=== PATIENT | male | born 1965 | race African-American/Black ===

== ENCOUNTER → 2017-08-03 | Outpatient (CLI) | payer OTHER ==
[~2017-08-03] MED LIST: ALBUAER2 INH; AMLO-114 PO; ASCO1CAP3 PO; ASPI81TA28 PO; CALC-354 PO; CALC625T PO; CICL160A PO; DOCU-94 PO; DOCU250C11 PO; FERR325T5 PO; HYDR25TA4 PO; MAGNSOL11 PO; METO50TA16 PO; PANT1TAB3 PO; PERP1TAB PO; PRAV20TA PO; PRAZ2CAP2 PO; SENN-61 PO; VENL75TA4 PO; [UNRECOGNIZED DRUG - CODE] IM
[2017-08-03 12:53] LABS: BASO % 0.4 %; BASO ABS # 0.02 K/uL (0-0.2); EOS % 3.3 %; HEMATOCRIT 40.2 % (42-52); IG% 0.6 %; LYMPH % 35.2 %; LYMPH ABS # 1.84 K/uL (1.2-3.4); MEAN CELL VOLUME 83.9 fL (80-100); MEAN CORPUSCULAR HEMOGLOBIN 27.8 pg (25-34); MEAN PLATELET VOLUME 8.4 fL (7.4-10.4); MONO % 8.2 %; NEUT % 52.3 %; PLATELET COUNT 318 K/uL (130-400); RED BLOOD COUNT 4.79 M/uL (4.7-6.1); WHITE BLOOD COUNT 5.22 K/uL (4.8-10.8)
[2017-08-03 12:55] LABS: COMPLETE YES; MEAN CORPUSCULAR HGB CONC 33.1 g/dl (32-36)
[2017-08-03 13:10] LABS: ALB/GLOB RATIO 1.4 (0.9-2); ALKALINE PHOSPHATASE 81 U/L (45-117); ALT/SGPT 48 U/L (12-78); AST/SGOT 23 U/L (15-37); BLOOD UREA NITROGEN 18 mg/dl (7-18); CALCIUM 9.6 mg/dl (8.5-10.1); CARBON DIOXIDE 31 mmol/L (21-32); CHLORIDE 104 mmol/L (98-107); CREATININE 1.28 mg/dl (0.60-1.40); GLUCOSE 107 mg/dl (70-99); POTASSIUM 3.9 mmol/L (3.5-5.1); SODIUM 140 mmol/L (136-145)
--- NOTE | 2017-08-12 10:09 | CODING QUERY NO DIAGNOSIS ---
TREATMENT RENDERED WITHOUT A DIAGNOSIS : 1965 To promote full compliance with coding requirements relating to patient care, physician participation is requested in all cases of field aide uncertainty. Please assist us with providing a diagnosis/symptom for the test(s) below: A diagnosis/symptom was not documented on your Order. A valid diagnosis/symptom is required to bill all insurances. Please remember that we are unable to code a diagnosis of rule out, probable, possible, questionable, or suspected. Tests that require a diagnosis: DOS: 08/03/17 * COMPREHENSIVE METABO DIAGNOSIS: * CBC WITH AUTO DIFFER DIAGNOSIS: Provider Signature: Date: Thank you Cheryle English [facility] Information Management Once completed, please kindly fax back to [phone] For questions please call [phone]
== END | disposition home or self-care (01) ==
LOC: C.LABSPEC 11:58
PROVIDERS: ATTEND Physician Assistant Medical
DX: R10.9 Unspecified abdominal pain (principal)

== ENCOUNTER → 2017-08-04 | Outpatient (CLI) | payer OTHER ==
[2017-08-04 16:22] LABS: HEMATOCRIT 37.8 % (42-52); MEAN CELL VOLUME 83.8 fL (80-100); MEAN CORPUSCULAR HEMOGLOBIN 27.7 pg (25-34); MEAN PLATELET VOLUME 8.3 fL (7.4-10.4); PLATELET COUNT 291 K/uL (130-400); RED BLOOD COUNT 4.51 M/uL (4.7-6.1); WHITE BLOOD COUNT 4.46 K/uL (4.8-10.8)
[2017-08-04 16:52] LABS: MEAN CORPUSCULAR HGB CONC 33.1 g/dl (32-36)
== END | disposition home or self-care (01) ==
LOC: C.LABSPEC 16:13
PROVIDERS: ATTEND Family Medicine
DX: Z01.89 Encounter for other specified special examinations (principal)

== ENCOUNTER → 2017-08-05 | Outpatient (CLI) | payer OTHER ==
[2017-08-05 14:21] LABS: BASO % 0.4 %; BASO ABS # 0.02 K/uL (0-0.2); COMPLETE YES; EOS % 4.5 %; HEMATOCRIT 39.7 % (42-52); IG% 0.2 %; LYMPH % 38.5 %; LYMPH ABS # 1.73 K/uL (1.2-3.4); MEAN CELL VOLUME 83.8 fL (80-100); MEAN CORPUSCULAR HEMOGLOBIN 27.4 pg (25-34); MEAN CORPUSCULAR HGB CONC 32.7 g/dl (32-36); MEAN PLATELET VOLUME 8.6 fL (7.4-10.4); MONO % 9.4 %; PLATELET COUNT 312 K/uL (130-400); RED BLOOD COUNT 4.74 M/uL (4.7-6.1); WHITE BLOOD COUNT 4.49 K/uL (4.8-10.8)
--- NOTE | 2017-08-11 10:05 | CODING QUERY NO DIAGNOSIS ---
TREATMENT RENDERED WITHOUT A DIAGNOSIS : 1965 To promote full compliance with coding requirements relating to patient care, physician participation is requested in all cases of dynamo tender uncertainty. Please assist us with providing a diagnosis/symptom for the test(s) below: A diagnosis/symptom was not documented on your Order. A valid diagnosis/symptom is required to bill all insurances. Please remember that we are unable to code a diagnosis of rule out, probable, possible, questionable, or suspected. Tests that require a diagnosis: DOS: 08/05/17 * CBC WITH AUTO DIFFER DIAGNOSIS: Provider Signature: Date: Thank you Cheryle English [facility] Information [facility] Once completed, please kindly fax back to [phone] For questions please call [phone]
== END | disposition home or self-care (01) ==
LOC: C.LABSPEC 14:13
PROVIDERS: ATTEND Family Medicine
DX: R10.9 Unspecified abdominal pain (principal)

== ENCOUNTER → 2017-12-06 | Outpatient (CLI) | payer OTHER ==
[2017-12-06 12:58] LABS: INFLUENZA B ANTIGEN Neg for Influ B (NEG)
== END | disposition home or self-care (01) ==
LOC: C.LABSPEC 12:04
PROVIDERS: ATTEND Family Medicine
DX: J10.1 Influenza due to other identified influenza virus with other respiratory manifestations (principal)

== ENCOUNTER 2020-09-23 10:09 | Observation (INO) ==
[2020-09-23] MEDS ORDERED: ONDANSETRON INJ 2 MG/ML 2 ML VIAL IV STA (10:43)
[2020-09-23] MEDS ORDERED: SODIUM CHLORIDE 0.9% 500 ML IV SCH (10:45)
--- NOTE | 2020-09-23 10:50 | Emergency Department Note ---
History of Present Illness General Chief Complaint: Chest Pain Time Seen by Provider: 09/23/20 10:29 Source: patient Mode of arrival: ambulatory Limitations: no limitations History of Present Illness Provider Complaint: chest pain Maximum Pain Intensity: 9 This is a 54-year-old male who presents to the ED with a chief complaint of chest pain and right lower quadrant abdominal pain. The patient has a history of cardiac stents x2 in 2008. The patient states that he has been having chest pain for about a week or so. He had an outpatient nuclear stress test on Wednesday, the of this month. The [facility] received a phone call today stating that that test was abnormal. The nuclear stress test does show abnormal myocardial perfusion in the anterior and inferior lateral wall suggestive of ischemia. He was having some chest pain this morning. He states his pain is intermittent in nature since he had the stress test. Pain radiates in the left side of his neck and left shoulder and arm. He has some associated nausea. He states that he has been vomiting. He also reports right lower quadrant abdominal pain. Patient did receive 4 baby aspirin in route to the ER by EMS. He was recently diagnosed with Covid on the . Home Medications Medication Instructions Recorded Confirmed Type allopurinol 100 mg PO DAILY 09/23/20 09/23/20 History amlodipine 5 mg PO DAILY 09/23/20 09/23/20 History aspirin 81 mg PO DAILY 09/23/20 09/23/20 History calcium carbonate-vitamin D3 2 tab PO BID 09/23/20 09/23/20 History [Calcium + D] cholecalciferol (vitamin D3) 25 mcg PO DAILY 09/23/20 09/23/20 History [Vitamin D3] finasteride 5 mg PO DAILY 09/23/20 09/23/20 History glipizide 5 mg PO DAILY 09/23/20 09/23/20 History hydrochlorothiazide 25 mg PO DAILY 09/23/20 09/23/20 History hydroxyzine pamoate [Vistaril] 25 mg PO BID PRN 09/23/20 09/23/20 History insulin regular human [Novolin R 0 unit SUBCUT UD 09/23/20 09/23/20 History Regular U-100 Insuln] metoprolol tartrate 100 mg PO BID 09/23/20 09/23/20 History pantoprazole 20 mg PO DAILY 09/23/20 09/23/20 History paroxetine HCl 20 mg PO DAILY 09/23/20 09/23/20 History prazosin 2 mg PO HS 09/23/20 09/23/20 History rosuvastatin 20 mg PO QPM 09/23/20 09/23/20 History sennosides-docusate sodium [Senna 1 tab-cap PO BID PRN 09/23/20 09/23/20 History Plus] valsartan 80 mg PO DAILY 09/23/20 09/23/20 History zinc sulfate 220 mg PO BID 09/23/20 09/23/20 History Allergies Allergy/AdvReac Type Severity Reaction Status Date / Time lisinopril Allergy Severe ANAPHYLAXIS Verified 09/23/20 10:47 ibuprofen Allergy Intermediate HIVES Verified 09/23/20 10:47 morphine Allergy Intermediate HIVES Verified 09/23/20 10:47 capsaicin Allergy Unknown . Verified 09/23/20 10:47 phenytoin Allergy Unknown unk Verified 09/23/20 10:47 Past Med/Surg History Social History Smoking Status: Never smoker Preferred Language: Arabic Feels Safe at Home: Yes Review of Systems A total of 10 systems reviewed and were otherwise negative Physical Exam Vital Signs Vital Signs - 24 hr 09/23/20 10:18 09/23/20 10:51 09/23/20 11:03 Temperature 37.4 C Temperature Source Oral Pulse Rate 59 L 55 L Pulse Rate [Apical] Pulse Rate from SpO2 Sensor 55 L Pulse Rhythm Regular Pulse Strength Normal Respiratory Rate 18 16 Respiratory Effort / Characteristics Non-Labored Spontaneous Respiratory Depth Normal Respiratory Pattern Regular Blood Pressure 130/79 126/81 Blood Pressure [Left Arm] Blood Pressure Mean 96 87 Blood Pressure Mean [Left Arm] Blood Pressure Position Sitting Pulse Oximetry 98 97 96 Oxygen Delivery Method Room Air Room Air Sepsis Recent Fever Within 48 Hours No Sepsis New/Unexplained Change in Mental Status No Sepsis Action Taken by Nursing No Action Required 09/23/20 11:07 09/23/20 11:30 09/23/20 12:00 Temperature Temperature Source Pulse Rate 59 L 55 L Pulse Rate [Apical] 55 L Pulse Rate from SpO2 Sensor 57 L 55 L Pulse Rhythm Pulse Strength Respiratory Rate 18 15 21 Respiratory Effort / Characteristics Respiratory Depth Respiratory Pattern Blood Pressure 121/77 118/73 Blood Pressure [Left Arm] 126/81 Blood Pressure Mean 82 78 Blood Pressure Mean [Left Arm] 96 Blood Pressure Position Pulse Oximetry 96 96 96 Oxygen Delivery Method Room Air Sepsis Recent Fever Within 48 Hours Sepsis New/Unexplained Change in Mental Status Sepsis Action Taken by Nursing 09/23/20 12:30 09/23/20 13:00 09/23/20 13:30 Temperature Temperature Source Pulse Rate 62 64 59 L Pulse Rate [Apical] Pulse Rate from SpO2 Sensor 60 64 59 L Pulse Rhythm Pulse Strength Respiratory Rate 20 15 12 Respiratory Effort / Characteristics Respiratory Depth Respiratory Pattern Blood Pressure 118/76 118/74 118/78 Blood Pressure [Left Arm] Blood Pressure Mean 91 91 85 Blood Pressure Mean [Left Arm] Blood Pressure Position Pulse Oximetry 97 94 96 Oxygen Delivery Method Room Air Room Air Room Air Sepsis Recent Fever Within 48 Hours Sepsis New/Unexplained Change in Mental Status Sepsis Action Taken by Nursing CONSTITUTIONAL/VITAL SIGNS: Reviewed / noted above. GENERAL: Non-toxic in appearance. INTEGUMENTARY: Warm, dry, and [place]. HEAD: Normocephalic. EYES: without scleral icterus or trauma. ENT/OROPHARYNX: clear and moist. LYMPHADENOPATHY/NECK: Is supple without lymphadenopathy or meningismus. RESPIRATORY: Lungs clear and equal. CARDIOVASCULAR: Regular rate and rhythm. GI/ABDOMEN: Soft and tender in the right lower quadrant. No organomegaly or pulsatile mass. No rebound or guarding. Normal bowel sounds. EXTREMITIES: Warm and well perfused. BACK: No CVA tenderness. NEUROLOGICAL: Intact without focal deficits. PSYCHIATRIC: normal affect. MUSCULOSKELETAL: Normally developed with good muscle tone. TRIAGE NURSING DOCUMENTATION REVIEWED. Course Administered Medications Discontinued Medications Sodium Chloride (Nss) 500 mls @ 999 mls/hr IV .Q31M [facility] Stop: 09/23/20 11:15 Last Infusion: 09/23/20 12:13 Dose: 0 mls/hr Documented by: [id number] Admin: 09/23/20 11:05 Dose: 999 mls/hr Documented by: [id number] Ioversol (Ioversol 100ml) 94 ml IV ONCE ONE Stop: 09/23/20 12:48 Last Admin: 09/23/20 12:48 Dose: 94 ml Documented by: [id number] Ondansetron HCl (Ondansetron Inj 2 Mg/Ml 2 Ml Vial) 4 mg IV NOW STA Stop: 09/23/20 10:44 Last Admin: 09/23/20 11:05 Dose: 4 mg Documented by: [id number] Medical Decision Making Differential Diagnosis The differential that was considered includes acute myocardial infarction, acute coronary syndrome, myocarditis, pericarditis, pericardial effusions /tamponade, esophageal perforation, thoracic aortic dissection, pulmonary embolism, pneumonia, pneumothorax, pancreatitis, shingles, acute cholecystitis, perforated abdominal viscus. Differential considered: pancreatitis, hepatitis, acute cholecystitis, AAA, UTI, pyelonephritis, kidney stones, appendicitis, diverticulitis, shingles, bowel obstruction, mesenteric ischemia, intussusception,hernia, testicular torsion, ovarian torsion, ruptured ovarian cyst,ectopic , . Medical Records Attestation: I reviewed the patient's medical records. Home Medications Current Medication List: was personally reviewed by me Laboratory Data Attestation: I reviewed the patient's lab results. Result diagrams: 09/23/20 10:25 09/23/20 10:25 Labs: Lab Results 09/23/20 09/23/20 Range/Units 10:25 10:25 WBC 4.95 (4.8-10.8) K/uL RBC 4.69 L (4.7-6.1) M/uL Hgb 12.7 L (14.0-18.0) g/dL Hct 38.4 L (42-52) % MCV 81.9 (80-100) fL MCH 27.1 (25-34) pg MCHC 33.1 (32-36) g/dL RDW Std Deviation 43.6 (36.4-46.3) fL RDW Coeff of Eliana 14.8 H (11.5-14.5) % Plt Count 231 (130-400) K/uL MPV 8.5 (7.4-10.4) fL Immature Gran % (Auto) 0.2 % Neut % (Auto) 45.5 % Lymph % (Auto) 41.6 % [place] % (Auto) 8.7 % Eos % (Auto) 3.4 % Baso % (Auto) 0.6 % Neut # (Auto) 2.25 (1.4-6.5) K/uL Lymph # (Auto) 2.06 (1.2-3.4) K/uL [place] # (Auto) 0.43 (0.11-0.59) K/uL Eos # (Auto) 0.17 (0-0.5) K/uL Baso # (Auto) 0.03 (0-0.2) K/uL Immature Gran # (Auto) 0.01 (0.00-0.02) K/uL Sodium 139 (136-145) mmol/L Potassium 3.9 (3.5-5.1) mmol/L Chloride 105 (98-107) mmol/L Carbon Dioxide 31 (21-32) mmol/L Anion Gap 3.0 (3-11) BUN 20 H (7-18) mg/dl Creatinine 1.30 (0.6-1.4) mg/dl Est Cr Clr Drug Dosing 69.1 ml/min Est GFR ( Amer) 70.7 Est GFR (Non-Af Amer) 61.0 BUN/Creatinine Ratio 15.2 (10-20) Glucose 169 H (70-99) mg/dl Calcium 9.5 (8.5-10.1) mg/dl Total Bilirubin 0.3 (0.2-1) mg/dl AST 24 (15-37) U/L ALT 43 (12-78) U/L Alkaline Phosphatase 73 (45-117) U/L Troponin I < 0.015 (0-0.045) ng/ml Total Protein 8.0 (6.4-8.2) gm/dl Albumin 4.2 (3.4-5.0) gm/dl Globulin 3.8 (2.5-4.0) gm/dl Albumin/Globulin Ratio 1.1 (0.9-2) Lipase 179 (73-393) U/L MDM Narrative Patient presents with chest pain and an abnormal myocardial perfusion study on Wednesday. He also has some nausea and vomiting and abdominal pain overnight with pain in the right lower quadrant. He is tender there on my exam. His vital signs are normal. The patient CBC and chemistry panel was unremarkable. Troponin was negative. Lipase was negative. CT scan of the abdomen pelvis did not show acute process. EKG shows a sinus bradycardia with a rate of [address] depressions in the inferior and anterior leads. Because of the patient's abnormal perfusion study on Wednesday and his ongoing intermittent chest pains, the patient will require further inpatient valuation and care. Impression & Plan Angina pectoris Discharge Plan Visit Data Chief Complaint: Chest Pain ED Provider: Axel Oreilly Discharge Problem: Angina pectoris Patient Disposition: Being Evaluated by Hospitalist Forms Stand Alone Forms: My [facility], Virtual Emergency Department, Important Visit Information Prescriptions Prescriptions: No Action metoprolol tartrate 100 mg Tablet 100 mg PO BID RF: 0 sennosides-docusate sodium [Senna Plus] 8.6-50 mg Tablet 1 tab-cap PO BID PRN (Reason: Constipation) RF: 0 valsartan 80 mg Tablet 80 mg PO DAILY RF: 0 amlodipine 5 mg Tablet 5 mg PO DAILY RF: 0 calcium carbonate-vitamin D3 [Calcium + D] 600 mg(1,500mg) -200 unit Tablet 2 tab PO BID RF: 0 allopurinol 100 mg Tablet 100 mg PO DAILY RF: 0 aspirin 81 mg Tablet,Delayed Release (Dr/Ec) 81 mg PO DAILY RF: 0 pantoprazole 20 mg Tablet,Delayed Release (Dr/Ec) 20 mg PO DAILY RF: 0 zinc sulfate 220 mg Tablet 220 mg PO BID RF: 0 paroxetine HCl 20 mg Tablet 20 mg PO DAILY RF: 0 Novolin R Regular U-100 Insuln 100 unit/mL Solution 0 unit SUBCUT UD RF: 0 hydrochlorothiazide 25 mg Tablet 25 mg PO DAILY RF: 0 finasteride 5 mg Tablet 5 mg PO DAILY RF: 0 glipizide 5 mg Tablet 5 mg PO DAILY RF: 0 prazosin 2 mg Capsule 2 mg PO HS RF: 0 hydroxyzine pamoate [Vistaril] 25 mg Capsule 25 mg PO BID PRN (Reason: Anxiety) RF: 0 rosuvastatin 20 mg Tablet 20 mg PO QPM RF: 0 cholecalciferol (vitamin D3) [Vitamin D3] 25 mcg (1,000 unit) Tablet 25 mcg PO DAILY RF: 0 Referrals Referrals: [facility],[place] [Primary Care Provider] -
[2020-09-23 10:51] LABS: Basophils # (auto) 0.03 K/uL (0-0.2); Basophils % (auto) 0.6 %; Eosinophils # (auto) 0.17 K/uL (0-0.5); Eosinophils % (auto) 3.4 %; Hematocrit (blood only) 38.4 % (42-52); Hemoglobin 12.7 g/dL (14.0-18.0); Immature Granulocytes # (auto) 0.01 K/uL (0.00-0.02); Immature Granulocytes % (auto) 0.2 %; Lymphocytes # (auto) 2.06 K/uL (1.2-3.4); Lymphocytes % (auto) 41.6 %; Mean Corpuscular Hemoglobin 27.1 pg (25-34); Mean Corpuscular Hgb Conc 33.1 g/dL (32-36); Mean Corpuscular Volume 81.9 fL (80-100); Mean Platelet Volume 8.5 fL (7.4-10.4); Monocytes # (auto) 0.43 K/uL (0.11-0.59); Monocytes % (auto) 8.7 %; Neutrophils # (auto) 2.25 K/uL (1.4-6.5); Neutrophils % (auto) 45.5 %; Platelet Count 231 K/uL (130-400); RDW Coefficient of Variation 14.8 % (11.5-14.5); RDW Standard Deviation 43.6 fL (36.4-46.3); Red Blood Count 4.69 M/uL (4.7-6.1); White Blood Count 4.95 K/uL (4.8-10.8)
[2020-09-23 10:59] LABS: Alanine Aminotransferase 43 U/L (12-78); Albumin Level 4.2 gm/dl (3.4-5.0); Aspartate Aminotransferase 24 U/L (15-37); BUN Creatinine Ratio 15.2 (10-20); Blood Urea Nitrogen 20 mg/dl (7-18); Calcium 9.5 mg/dl (8.5-10.1); Carbon Dioxide 31 mmol/L (21-32); Chloride 105 mmol/L (98-107); Creatinine Clr Calc Pharmacy 69.1 ml/min; Est GFR (African American) 70.7; Glucose 169 mg/dl (70-99); Lipase 179 U/L (73-393); Potassium 3.9 mmol/L (3.5-5.1); Sodium 139 mmol/L (136-145)
[2020-09-23 11:04] LABS: Albumin Globulin Ratio 1.1 (0.9-2); Alkaline Phosphatase 73 U/L (45-117); Bilirubin,Total 0.3 mg/dl (0.2-1); Globulin 3.8 gm/dl (2.5-4.0); Troponin I < 0.015 ng/ml (0-0.045)
--- NOTE | 2020-09-23 12:22 | Electrocardiogram Report ---
Test Reason : Blood Pressure : / mmHG Vent. Rate : 059 BPM Atrial Rate : 059 BPM P-R Int : 152 ms QRS Dur : 104 ms QT Int : 424 ms P-R-T Axes : 045 006 -16 degrees QTc Int : 419 ms Sinus bradycardia Incomplete right bundle branch block T wave abnormality, consider anterior ischemia Abnormal ECG When compared with ECG of 23-JAN-2016 10:37, Nonspecific T wave abnormality has replaced inverted T waves in Lateral leads Confirmed by Abhishek Caro ([id number]) on 09/23/2020 12:21:55 PM Referred By: [facility] Confirmed By:Abhishek Caro
[2020-09-23] MEDS ORDERED: IOVERSOL 100ml IV ONE (12:47)
--- NOTE | 2020-09-23 13:01 | CT Scan Report ---
CT SCAN OF THE ABDOMEN AND PELVIS WITH IV CONTRAST CLINICAL HISTORY: Right lower quadrant abdominal pain. Nausea and vomiting. Covid. COMPARISON STUDY: Abdominal CT dated 01/23/2016 scans 06/07/2015. TECHNIQUE: Following the IV administration of 94 cc of Optiray 320, CT scan of the abdomen and pelvi s is performed from the lung bases to the proximal femora. Images are reviewed in the axial, sagittal , and coronal planes. IV contrast was administered without complication. A dose lowering technique wa s utilized adhering to the principles of ALARA. CT DOSE: 735.43 mGycm FINDINGS: Lung bases: The heart is normal in size and without pericardial effusion. The lung bases are clear. T here is a moderate hiatal hernia. Liver: The contrast-enhanced liver is normal in size and contour. The liver demonstrates diffusely di minished attenuation consistent with hepatic steatosis. Fatty sparing is seen adjacent to gallbladder fossa. There is no intrahepatic biliary ductal dilatation. The hepatic veins and portal veins are pa tent. A 2.3 cm hypervascular lesion in the left lobe is present dating back to 2014 and likely repres ents a hemangioma. Gallbladder: Unremarkable. Spleen: Normal in size and attenuation. Pancreas: Unremarkable. Adrenal glands: Unremarkable. Kidneys: The contrast enhanced kidneys are normal in size and without hydronephrosis. The kidneys enh ance symmetrically. Abdominal vasculature: The abdominal aorta is normal in course and caliber. Bowel: There is no bowel obstruction. Mild to moderate fecal retention is noted in the colon. There i s a large duodenal diverticulum. The appendix is well-visualized and normal. Peritoneum: There is no intraperitoneal free air or abdominal ascites. There is a midline surgical sc ar. Lymphadenopathy: None. Pelvic viscera: The bladder, prostate, and seminal vesicles are normal as imaged. There are bilateral fat-containing inguinal hernias. Skeletal structures: No lytic or blastic lesions are seen. A neurostimulator device is present in the right gluteal soft tissues. Leads extend into the Central canal and the lower thoracic region. IMPRESSION: 1. There are no acute infectious or inflammatory findings in the abdomen or pelvis. 2. Hepatic steatosis. 3. Additional findings as above. ACT 112: Negative or not required by law. Electronically signed by: Freddy Rosado M.D. 09/23/2020 1:00 PM
[2020-09-23] MEDS ORDERED: ASPIRIN CHEW 324 MG PO STA (14:12)
[2020-09-23] MEDS ORDERED: ACETAMINOPHEN 325 MG TAB PO STA (14:12)
[2020-09-23] MEDS ORDERED: ONDANSETRON INJ 2 MG/ML 2 ML VIAL IV PRN (15:05)
[2020-09-23] MEDS ORDERED: ZOLPIDEM TARTRATE 5 MG TAB PO PRN (15:05)
[2020-09-23] MEDS ORDERED: ALUMINUM/MAGNESIUM SUSP 30 ML UDC PO PRN (15:05)
[2020-09-23] MEDS ORDERED: ACETAMINOPHEN 325 MG TAB PO PRN (15:05)
[2020-09-23] MEDS ORDERED: POLYETHYLENE (MIRALAX) 17 GM PACK PO PRN (15:05)
[2020-09-23] MEDS ORDERED: MAGNESIUM HYDROXIDE SUSP 30 ML UDC PO PRN (15:05)
[2020-09-23] MEDS ORDERED: Heparin IV Standard *NO* Bolus IV SCH (15:15)
[2020-09-23] MEDS ORDERED: hydrOXYzine HCl 25 MG TAB PO PRN (15:20)
[2020-09-23] MEDS ORDERED: HEPARIN 25000 UNIT/500 ML D5W IV ONE (15:30)
--- NOTE | 2020-09-23 15:31 | History & Physical Report ---
Date of Service September 23, 2020 Assessment & Plan (1) Chest pain due to CAD: Mr. Curtis is a 54 year old male inmate with a history of Type 2 Diabetes Mellitus, Hypertension, Hyperlipidemia, Asthma, Sarcoidosis, Prior CVA, Arthritis, PUD, Depression, BPH, Iron Deficiency Anemia, SBO s/p Surgical Intervention 2014, and CAD s/p 2 Intracoronary Stents > 10 years ago (details unknown) -- who underwent a Lexiscan Cardiolite in 09/20/2020 for chest pain and dyspnea and it was abnormal and showed inferior and inferolateral ischemia. Patient experienced chest pain and shortness of breath during this nuclear study. Patient continues to experience chest pain off and on, which radiates to his left neck, shoulder, and arm with associated nausea/vomiting and RLQ discomfort (likely secondary to vomiting). These symptoms have been intermittent over the weekend, seem to come and go at random, are not necessarily worsened with exertion, and sometimes he exacerbates the pain by taking a deep breath. The [facility] was contacted with the abnormal nuclear study earlier today, so due to his ongoing symptoms -- they referred patient [facility] ER for further evaluation and treatment recommendations. This chest discomfort has both typical but mostly atypical symptoms but with his history of CAD, ongoing risk factors, and his abnormal Lexiscan Cardiolite -- recommend further evaluation. -- Admit to Telemetry floor. -- Serial cardiac enzymes. -- Serial EKG's. -- Aspirin 81 mg daily. -- Heparin drip, standard dose. -- Lopressor 100 mg b.i.d.. -- Rosuvastatin 20 mg daily. -- Valsartan 80 mg daily. -- Consider Cardiac Catheterization during this hospitalization. (2) Abnormal nuclear stress test: -- As outlined above. (3) S/P coronary artery stent placement: -- Continue cardiac medications as outlined above. -- Obtain cardiac catheterization records if available at [facility]. (4) Hypertension: BP appears to be controlled. -- Continue usual antihypertensive regimen. (5) Hyperlipidemia: -- Check FLP in a.m.. -- Continue Rosuvastatin 20 mg for now. (6) DM type 2 (diabetes mellitus, type 2): -- BSG checks. -- Sliding scale Insulin. -- Continue Glipizide 5 mg daily. History of Present Illness Chief Complaint: -- Chest Pain. -- Abnormal Lexiscan Cardiolite 09/20/2020 showing inferior and inferolateral ischemia. Primary Care Provider: RANDALL [place] Mr. Curtis is a 54 year old male inmate with a history of Type 2 Diabetes Mellitus, Hypertension, Hyperlipidemia, Asthma, Sarcoidosis, Prior CVA, Arthritis, PUD, Depression, BPH, Iron Deficiency Anemia, SBO s/p Surgical Intervention 2014, and CAD s/p 2 Intracoronary Stents > 10 years ago (details unknown) -- who underwent a Lexiscan Cardiolite in 09/20/2020 for chest pain and dyspnea and it was abnormal and showed inferior and inferolateral ischemia. Patient experienced chest pain and shortness of breath during this nuclear study. Patient continues to experience chest pain off and on, which radiates to his left neck, shoulder, and arm with associated nausea/vomiting and RLQ discomfort (likely secondary to vomiting). These symptoms have been intermittent over the weekend, seem to come and go at random, are not necessarily worsened with exertion, and sometimes he exacerbates the pain by taking a deep breath. Patient denies any associated diaphoresis. The [facility] was contacted with the abnormal nuclear study earlier today, so due to his ongoing symptoms -- they referred patient [facility] ER for further evaluation and treatment recommendations. Thus far, his evaluation shows a Troponin I of 0.015 ng/mL. EKG shows normal sinus rhythm with an incomplete RBBB and anterior T wave abnormalities, consider anterior ischemia. Allergies Allergy/AdvReac Type Severity Reaction Status Date / Time lisinopril Allergy Severe ANAPHYLAXIS Verified 09/23/20 10:47 ibuprofen Allergy Intermediate HIVES Verified 09/23/20 10:47 morphine Allergy Intermediate HIVES Verified 09/23/20 10:47 capsaicin Allergy Unknown . Verified 09/23/20 10:47 phenytoin Allergy Unknown unk Verified 09/23/20 10:47 Home Medications Medication Instructions Recorded Confirmed Type allopurinol 100 mg PO DAILY 09/23/20 09/23/20 History amlodipine 5 mg PO DAILY 09/23/20 09/23/20 History aspirin 81 mg PO DAILY 09/23/20 09/23/20 History calcium carbonate-vitamin D3 2 tab PO BID 09/23/20 09/23/20 History [Calcium + D] cholecalciferol (vitamin D3) 25 mcg PO DAILY 09/23/20 09/23/20 History [Vitamin D3] finasteride 5 mg PO DAILY 09/23/20 09/23/20 History glipizide 5 mg PO DAILY 09/23/20 09/23/20 History hydrochlorothiazide 25 mg PO DAILY 09/23/20 09/23/20 History hydroxyzine pamoate [Vistaril] 25 mg PO BID PRN 09/23/20 09/23/20 History insulin regular human [Novolin R 0 unit SUBCUT UD 09/23/20 09/23/20 History Regular U-100 Insuln] metoprolol tartrate 100 mg PO BID 09/23/20 09/23/20 History pantoprazole 20 mg PO DAILY 09/23/20 09/23/20 History paroxetine HCl 20 mg PO DAILY 09/23/20 09/23/20 History prazosin 2 mg PO HS 09/23/20 09/23/20 History rosuvastatin 20 mg PO QPM 09/23/20 09/23/20 History sennosides-docusate sodium [Senna 1 tab-cap PO BID PRN 09/23/20 09/23/20 History Plus] valsartan 80 mg PO DAILY 09/23/20 09/23/20 History zinc sulfate 220 mg PO BID 09/23/20 09/23/20 History Past Med/Surg History Medical History (Updated 09/23/20 @ 16:38 by Kamari Matta PA-C) Hx SBO Social History Smoking Status: Never smoker Hx Alcohol Use: No Hx Substance Use: No Preferred Language: Pashto Communication Ability: Effective Injection Molding Machine Setter Required: No Beliefs That Will Affect Care: None Current Living Situation: Other Current Living Situation Comment: [facility] Feels Safe at Home: Yes Assistive Devices: None Physical Exam Physical Exam: GENERAL: Patient in no acute distress. HEENT: Head is atraumatic, normocephalic. EOM's intact. Facies symmetric. No perioral cyanosis. NECK: No JVD. JVP is at the level of the clavicle sitting upright. Carotid upstrokes are + 2 bilaterally. No bruits are noted. CHEST/LUNGS: Clear to auscultation throughout all lung mend[place]. No wheezes, rales, or crackles. CVS: S1 and S2 are regular, bradycardic without obvious murmurs, gallops, or rubs. PMI is nondisplaced. No lifts, heaves, or thrills. No abdominal aortic or renal bruits. ABDOMINAL EXAM: Bowel sounds are present. No masses, organomegaly, or tenderness. No guarding, rigidity, or rebound tenderness noted. EXTREMITIES: No clubbing or cyanosis. No edema. Intact posterior tibial and radial pulses bilaterally. Omar's test positive for both right radial and ulnar arterial reflow. NEUROLOGIC EXAM: Patient is awake, alert, and oriented. Pleasant and cooperative. Answers questions appropriately. Speech is clear. Normal movement in all 4 extremities. MUSCULOSKELETAL EXAM: Mild reproducible left anterior chest wall tenderness. No bony deformity or crepitus. Results & Data Results & Data ([facility]) Vital Signs (Past 12 Hours) Vital Signs Temp Pulse Pulse Resp BP BP Pulse Ox 09/23/20 14:30 57 L 15 124/85 99 09/23/20 14:00 66 14 132/90 97 09/23/20 13:30 59 L 12 118/78 96 09/23/20 13:00 64 15 118/74 94 09/23/20 12:30 62 20 118/76 97 09/23/20 12:00 55 L 21 118/73 96 09/23/20 11:30 59 L 15 121/77 96 09/23/20 11:07 55 L 18 126/81 96 09/23/20 11:03 55 L 16 126/81 96 09/23/20 10:51 97 09/23/20 10:18 37.4 C 59 L 18 130/79 98 Laboratory Results Laboratory Results - last 24 hr 09/23/20 09/23/20 09/23/20 10:25 10:25 10:25 WBC 4.95 RBC 4.69 L Hgb 12.7 L Hct 38.4 L MCV 81.9 MCH 27.1 MCHC 33.1 RDW Std Deviation 43.6 RDW Coeff of Eliana 14.8 H Plt Count 231 MPV 8.5 Immature Gran % (Auto) 0.2 Neut % (Auto) 45.5 Lymph % (Auto) 41.6 [place] % (Auto) 8.7 Eos % (Auto) 3.4 Baso % (Auto) 0.6 Neut # (Auto) 2.25 Lymph # (Auto) 2.06 [place] # (Auto) 0.43 Eos # (Auto) 0.17 Baso # (Auto) 0.03 Immature Gran # (Auto) 0.01 APTT 26.9 PTT Ratio 1.0 Sodium 139 Potassium 3.9 Chloride 105 Carbon Dioxide 31 Anion Gap 3.0 BUN 20 H Creatinine 1.30 Est Cr Clr Drug Dosing 69.1 Est GFR ( Amer) 70.7 Est GFR (Non-Af Amer) 61.0 BUN/Creatinine Ratio 15.2 Glucose 169 H Calcium 9.5 Total Bilirubin 0.3 AST 24 ALT 43 Alkaline Phosphatase 73 Troponin I < 0.015 Total Protein 8.0 Albumin 4.2 Globulin 3.8 Albumin/Globulin Ratio 1.1 Lipase 179 SARS-CoV-2 Ag (Rapid) 09/23/20 14:26 WBC RBC Hgb Hct MCV MCH MCHC RDW Std Deviation RDW Coeff of Eliana Plt Count MPV Immature Gran % (Auto) Neut % (Auto) Lymph % (Auto) [place] % (Auto) Eos % (Auto) Baso % (Auto) Neut # (Auto) Lymph # (Auto) [place] # (Auto) Eos # (Auto) Baso # (Auto) Immature Gran # (Auto) APTT PTT Ratio Sodium Potassium Chloride Carbon Dioxide Anion Gap BUN Creatinine Est Cr Clr Drug Dosing Est GFR ( Amer) Est GFR (Non-Af Amer) BUN/Creatinine Ratio Glucose Calcium Total Bilirubin AST ALT Alkaline Phosphatase Troponin I Total Protein Albumin Globulin Albumin/Globulin Ratio Lipase SARS-CoV-2 Ag (Rapid) Negative Medications Administered Active Medications Generic Name Dose Route Start Last Admin Trade Name Freq PRN Reason Stop Dose Admin Acetaminophen 650 mg 09/23/20 15:05 Acetaminophen 325 Mg Tab PO 10/23/20 15:04 Q4H PRN Pain or Fever Al Hydrox/Mg Hydrox/Simethicone 15 ml 09/23/20 15:05 Aluminum/Magnesium Susp 30 Ml Udc PO 10/23/20 15:04 Q4H PRN Dyspepsia Allopurinol 100 mg 09/24/20 09:00 Allopurinol 100 Mg Tab PO 10/24/20 08:59 DAILY LIN Amlodipine Besylate 5 mg 09/24/20 09:00 Amlodipine Besylate 5 Mg Tab PO 10/24/20 08:59 DAILY LIN Aspirin 81 mg 09/24/20 09:00 Aspirin 81 Mg Ectab PO 10/24/20 08:59 QAM [facility] Aspirin 81 mg 09/24/20 09:00 Aspirin 81 Mg Ectab PO 10/24/20 08:59 DAILY [facility] Finasteride 5 mg 09/24/20 09:00 Finasteride 5 Mg Tab PO 10/24/20 08:59 DAILY [facility] Glipizide 5 mg 09/24/20 09:00 Glipizide 5 Mg Tab PO 10/24/20 08:59 DAILY [facility] Hydrochlorothiazide 25 mg 09/24/20 09:00 Hydrochlorothiazide 25 Mg Tab PO 10/24/20 08:59 DAILY [facility] Hydroxyzine HCl 25 mg 09/23/20 15:20 Hydroxyzine Hcl 25 Mg Tab PO 10/23/20 15:19 BID PRN Anxiety Heparin Sodium/Dextrose 25,000 units in 500 mls @ 28 mls/hr 09/23/20 15:45 Heparin Sodium/Dextrose IV 10/23/20 15:44 .[id number] [facility] Protocol 1,400 UNITS/HR Insulin Human Regular 0 units 09/23/20 16:30 Insulin Human Regular SC 10/23/20 16:29 ACHS [facility] Protocol Magnesium Hydroxide 30 ml 09/23/20 15:05 Magnesium Hydroxide Susp 30 Ml Udc PO 10/23/20 15:04 Q12H PRN Constipation Metoprolol Tartrate 100 mg 09/23/20 21:00 Metoprolol Tartrate 100 Mg Tab PO 10/23/20 20:59 BID [facility] Nitroglycerin 0.4 mg 09/23/20 15:05 Nitroglycerin Sl 0.4 Mg/Tab Tab SL 10/23/20 15:04 UD PRN Chest Pain Nitroglycerin 1 inch 09/23/20 18:00 Nitroglycerin 2% Ointment 30gm Tube EXT 10/23/20 17:59 Q6 [facility] Non-Formulary Medication 220 mg 09/23/20 21:00 Zinc Sulfate PO 10/23/20 20:59 BID [facility] Non-Formulary Medication 25 mcg 09/24/20 09:00 Cholecalciferol (Vitamin D3) [Vitamin D3] PO 10/24/20 08:59 DAILY [facility] Non-Formulary Medication 2 tab 09/23/20 21:00 Calcium Carbonate-Vitamin D3 PO 10/23/20 20:59 BID [facility] Ondansetron HCl 4 mg 09/23/20 15:05 Ondansetron Inj 2 Mg/Ml 2 Ml Vial IV 10/23/20 15:04 Q6H PRN Nausea Pantoprazole Sodium 20 mg 09/24/20 09:00 Pantoprazole 40 Mg Tab PO 10/24/20 08:59 DAILY LIN Paroxetine HCl 20 mg 09/24/20 09:00 Paroxetine Hcl 20 Mg Tab PO 10/24/20 08:59 DAILY LIN Polyethylene Glycol 17 gm 09/23/20 15:05 Polyethylene (Miralax) 17 Gm Pack PO 10/23/20 15:04 DAILY PRN Constipation Prazosin HCl 2 mg 09/23/20 21:00 Prazosin Hcl 1 Mg Cap PO 10/23/20 20:59 HS LIN Rosuvastatin Calcium 20 mg 09/23/20 21:00 Rosuvastatin Calcium 20 Mg Tab PO 10/23/20 20:59 QPM LIN Valsartan 80 mg 09/24/20 09:00 Valsartan 80 Mg Tab PO 10/24/20 08:59 DAILY LIN Zolpidem Tartrate 5 mg 09/23/20 15:05 Zolpidem Tartrate 5 Mg Tab PO 10/23/20 15:04 HS PRN Sleep Code Status & VTE Plan Code Status Full code VTE Prophylaxis Plan VTE Prophylaxis will be ordered: Yes Supervising Physician Co-Signing Physician Notes I personally saw and examined the patient. I verified all mendez points and agree with SALVADOR Matta with the following exceptions and/or additions: 54 year old male from [facility] who presents to the ER with RLQ pain, chest pain and abnormal NM stress test. Patient reports occasional longstanding chest pain with associated shortness of breath however much worse intermittently over the last week. Current severity 05/13 but has been the same most of this week with negative troponin on admission. Worse on lying flat and inspiration. No relief on leaning forward. Significant shortness of breath on minimal exertion.He was diagnosed with COVID-19 pneumonia after a 3 day spell of nausea/vomiting, cough and headache on August 30 (test returned positive on 09/01). I could find no documentation here or on calling [facility] to support the ER note that he tested positive on the and I suspect this is in error. On discussion with [facility] the nurse confirms he has a long history with chronic chest pain although she is unable to tell me how this has changed over time and main reason he was seen today was complaining of RLQ pain but also had his abnormal NM stress results therefore was sent to the ER. O/E RRR, HS1+2, no pain on palpation of chest, Chest CTAB, RLQ tenderness on exam, BS +ve, A/P Atypical chest pain - suspect he has a degree of chronic chest pain given noted with recent NM stress and prior stress echo in 2019 which is not cardiac. However difficult to ignore positive stress test with known CAD and will treat currently as ACS pending overnight troponins and cardiology review. Very pleuritic nature however D-dimer negative for PE and CXR unremarkable. As this has been going on for a week and possibly longer I have low suspicion of dissection - CXR normal and BP/pulse equal b/l. ESR and CRP added to asses for prior history fo sarcoidosis/pericarditis/pleuritis. No bilateral hilar lymphadenopathy to suggest sarcoid. Possibly chronic pain is referred from his back given spinal stimulator seen although current pain appears atypical for this. Right lower quadrant pain - CT is reassuring. Agree with note above and suspect this is muscular in origin. PG Care Time/CCT Total # of Minutes Spent Total Time Spent with Patient: Total time spent is greater than 50% in coordination of care (as documented) at patient's floor/unit and/or counseling patient:40 Coding Level of Care Code 86406 Initial Inpt Care Lvl 3 Diagnoses Chest pain due to CAD I25.119 Abnormal nuclear stress test R94.39 S/P coronary artery stent placement Z95.5 Hypertension I10 Hyperlipidemia E78.5 DM type 2 (diabetes mellitus, type 2) E11.9
[2020-09-23 16:05] LABS: Partial Thromboplastin Time 26.9 Seconds (21.0-31.0)
[2020-09-23] MEDS ORDERED: DOCUSATE SODIUM/SENNA 50/8.6MG TAB PO PRN (18:07)
[2020-09-23] MEDS ORDERED: NovoLIN-R INSULIN PER UNIT CHARGE SQ SCH (18:07)
[2020-09-23] MEDS: NITROGLYCERIN SL 0.4 MG/TAB TAB SL PRN ×2 (18:20→18:26)
[2020-09-23] MEDS: NITROGLYCERIN 2% OINTMENT 30GM TUBE EXT SCH (18:21)
[2020-09-23] MEDS: HEPARIN SODIUM/DEXTROSE 25,000 UNITS/500 ML BAG IV SCH (18:24)
[2020-09-23] MEDS: INSULIN HUMAN REGULAR SC SCH ×2 (19:02→22:27)
[2020-09-23 19:17] LABS: D Dimer 230 ug/L FEU (0-500)
--- NOTE | 2020-09-23 19:37 | XRay Report ---
XR chest 1V portable CLINICAL HISTORY: Atypical chest pain COMPARISON STUDY: 01/23/2016 FINDINGS: The heart is mildly enlarged. There is a suspected hiatal hernia. There is no failure. Ther e is no lobar consolidation. There is minor left basilar atelectasis. A spinal stimulator is visualiz ed.[ IMPRESSION: 1. Small hiatal hernia 2. Minor left basilar atelectasis 3. Mild cardiomegaly 4. No acute findings. ACT 112: Negative or not required by law. Electronically signed by: Gigi Son M.D. 09/23/2020 7:35 PM
[2020-09-23] MEDS: PRAZOSIN HCL 1 MG CAP PO SCH (20:51)
[2020-09-23] MEDS: ZINC SULFATE 220 MG CAPSULE PO SCH (20:52)
[2020-09-23] MEDS: ROSUVASTATIN CALCIUM 20 MG TAB PO SCH (20:53)
[2020-09-23] MEDS: METOPROLOL TARTRATE 100 MG TAB PO SCH (20:54)
[2020-09-23] MEDS: CALCIUM 600MG + VIT D 400 IU TAB PO SCH (20:55)
[2020-09-23 22:40] LABS: Partial Thromboplastin Ratio 1.9
[2020-09-23 22:42] LABS: Partial Thromboplastin Time 52.2 Seconds (21.0-31.0)
[2020-09-23 22:43] LABS: C Reactive Protein 0.36 mg/dl (0-0.29); Troponin I < 0.015 ng/ml (0-0.045)
[2020-09-23] MEDS ORDERED: GLUCOSE 40% GEL 15 GM TUBE PO PRN (23:14)
[2020-09-23] MEDS ORDERED: GLUCAGON FOR INJ 1 MG VIAL SQ PRN (23:14)
[2020-09-23] MEDS ORDERED: CARBOHYDRATES FOR HYPOGLYCEMIA PO PRN (23:14)
[2020-09-23] MEDS ORDERED: DEXTROSE 50% 50 ML SYRINGE IV PRN (23:14)
[2020-09-23] MEDS ORDERED: GLUCOSE 10 TABS/TUBE PO PRN (23:14)
[2020-09-23] MEDS: SODIUM CHLORIDE 0.9% 1000ML 1,000 ML IV SCH (23:32)
[2020-09-24] MEDS: NITROGLYCERIN 2% OINTMENT 30GM TUBE EXT SCH ×3 (01:34→14:13)
[2020-09-24] MEDS: PROMETHAZINE HCL 12.5 MG in SODIUM CHLORIDE 0.9% 50 ML IV PRN ×3 (02:58→16:00)
[2020-09-24 03:45] LABS: Basophils # (auto) 0.01 K/uL (0-0.2); Basophils % (auto) 0.2 %; Eosinophils # (auto) 0.13 K/uL (0-0.5); Eosinophils % (auto) 2.7 %; Hematocrit (blood only) 35.5 % (42-52); Hemoglobin 11.7 g/dL (14.0-18.0); Immature Granulocytes # (auto) 0.01 K/uL (0.00-0.02); Immature Granulocytes % (auto) 0.2 %; Lymphocytes # (auto) 1.34 K/uL (1.2-3.4); Mean Corpuscular Hemoglobin 26.8 pg (25-34); Mean Corpuscular Volume 81.2 fL (80-100); Mean Platelet Volume 8.2 fL (7.4-10.4); Monocytes # (auto) 0.36 K/uL (0.11-0.59); Monocytes % (auto) 7.5 %; Neutrophils # (auto) 2.94 K/uL (1.4-6.5); Neutrophils % (auto) 61.4 %; Platelet Count 223 K/uL (130-400); RDW Coefficient of Variation 14.9 % (11.5-14.5); RDW Standard Deviation 43.8 fL (36.4-46.3); Red Blood Count 4.37 M/uL (4.7-6.1); White Blood Count 4.79 K/uL (4.8-10.8)
[2020-09-24 04:01] LABS: BUN Creatinine Ratio 15.2 (10-20); Calcium 8.9 mg/dl (8.5-10.1); Creatinine Clr Calc Pharmacy 66.1 ml/min; Est GFR (African American) 66.4; Est GFR (Non-African American) 57.2; Potassium 3.9 mmol/L (3.5-5.1)
[2020-09-24] MEDS ORDERED: HEPARIN IV BOLUS 6,000 UNITS in SYRINGE 0 ML IV ONE (06:00)
[2020-09-24] MEDS: SODIUM CHLORIDE 0.9% 1000ML 1,000 ML IV SCH (07:23)
[2020-09-24 07:29] LABS: Partial Thromboplastin Ratio 2.4
[2020-09-24] MEDS: INSULIN HUMAN REGULAR SC SCH ×4 (07:30→21:26)
[2020-09-24 07:37] LABS: Partial Thromboplastin Time 66.9 Seconds (21.0-31.0)
[2020-09-24 07:49] LABS: Estimated Average Glucose 157 mg/dl; Hemoglobin A1C 7.1 % (4.5-5.6)
[2020-09-24] MEDS ORDERED: PANTOprazole 40 MG TAB PO SCH (09:00)
[2020-09-24] MEDS ORDERED: ASPIRIN 81 MG ECTAB PO SCH (09:00)
--- NOTE | 2020-09-24 10:30 | XCELERA ---
[id number]
[2020-09-24] MEDS: HEPARIN SODIUM/DEXTROSE 25,000 UNITS/500 ML BAG IV SCH (10:38)
--- NOTE | 2020-09-24 10:44 | Cardiology Consultation ---
Date of Consultation September 24, 2020 Assessment & Plan (1) Abnormal nuclear stress test: 2. Atypical chest pain 3. History of coronary artery disease post remote stenting x2 4. Type 2 diabetes 5. Prior CVA 6. Anemia 7. History of asthma/question sarcoidosis 8. Hypertension 9. Dyslipidemia 10. Peptic ulcer disease Chest pain with atypical features and no signs of active ischemia by troponin/ECG despite ongoing chest pain for days. Still with patient's history and recent abnormal stress test recommend proceeding cardiac catheterization. Discussed procedure with patient including risk, benefits, alternatives and he is willing to proceed. Plan perform via right radial artery. Further recommendations pending findings. History of Present Illness Reason for Consultation: Chest pain, abnormal stress test Attending Physician: Willy Hayward MD History of Present Illness Mr. Curtis is a 54-year-old man with a history of type 2 diabetes, hypertension, dyslipidemia and coronary artery disease post PCI with stent placement x2 (question 2000) admitted from [facility] in the setting of atypical chest pain and recent abnormal stress test. Other medical issues include asthma, sarcoidosis, prior CVA with residual right- sided weakness, arthritis, peptic ulcer disease, depression, BPH, iron de ficiency anemia, prior SBO post surgical invention 2014. Patient underwent a Lexiscan SPECT 09/20/2020 which showed inferior, inferolateral ischemia with chest pain reproduced with Lexiscan. Since that time he reports near constant diffuse chest pain radiating to his neck and associated with nausea/vomiting over the last 3 days. Pain somewhat worse with exertion. Some features reminiscent of pain he had prior to his stent. Admitted for possible ACS. Troponin has been negative x3. ECG showed sinus rhythm, LVH, incomplete right bundle branch block and unchanged anterior T wave inversions. Chest x-ray with no acute findings. CT abdomen pelvis with hepatic steatosis but otherwise unremarkable. No events on telemetry overnight. Echocardiogram this a.m. showed preserved LV function with no new wall motion normalities. Family history: Multiple family members with CO Social history: Lifelong non-smoker Allergies Allergy/AdvReac Type Severity Reaction Status Date / Time lisinopril Allergy Severe ANAPHYLAXIS Verified 09/23/20 10:47 ibuprofen Allergy Intermediate HIVES Verified 09/23/20 10:47 morphine Allergy Intermediate HIVES Verified 09/23/20 10:47 capsaicin Allergy Unknown . Verified 09/23/20 10:47 phenytoin Allergy Unknown unk Verified 09/23/20 10:47 Home Medications Medication Instructions Recorded Confirmed Type allopurinol 100 mg PO DAILY 09/23/20 09/23/20 History amlodipine 5 mg PO DAILY 09/23/20 09/23/20 History aspirin 81 mg PO DAILY 09/23/20 09/23/20 History calcium carbonate-vitamin D3 2 tab PO BID 09/23/20 09/23/20 History [Calcium + D] cholecalciferol (vitamin D3) 25 mcg PO DAILY 09/23/20 09/23/20 History [Vitamin D3] finasteride 5 mg PO DAILY 09/23/20 09/23/20 History glipizide 5 mg PO DAILY 09/23/20 09/23/20 History hydrochlorothiazide 25 mg PO DAILY 09/23/20 09/23/20 History hydroxyzine pamoate [Vistaril] 25 mg PO BID PRN 09/23/20 09/23/20 History insulin regular human [Novolin R 0 unit SUBCUT UD 09/23/20 09/23/20 History Regular U-100 Insuln] metoprolol tartrate 100 mg PO BID 09/23/20 09/23/20 History pantoprazole 20 mg PO DAILY 09/23/20 09/23/20 History paroxetine HCl 20 mg PO DAILY 09/23/20 09/23/20 History prazosin 2 mg PO HS 09/23/20 09/23/20 History rosuvastatin 20 mg PO QPM 09/23/20 09/23/20 History sennosides-docusate sodium [Senna 1 tab-cap PO BID PRN 09/23/20 09/23/20 History Plus] valsartan 80 mg PO DAILY 09/23/20 09/23/20 History zinc sulfate 220 mg PO BID 09/23/20 09/23/20 History Patient History Medical History (Updated 09/23/20 @ 16:38 by Kamari Matta PA-C) Hx SBO Social History Smoking Status: Never smoker Hx Alcohol Use: No Hx Substance Use: No Preferred Language: Welsh Communication Ability: Effective Intake Clerk Required: No Beliefs That Will Affect Care: None Current Living Situation: Other Current Living Situation Comment: [facility] Feels Safe at Home: Yes Assistive Devices: None Review of Systems Review of Systems: All systems reviewed & are unremarkable except as noted in HPI & below Physical Exam Physical Exam: General: Comfortable, no acute distress Eyes: Sclerae anicteric Lungs: Clear to auscultation bilaterally, no rhonchi or wheezes Cardiac: Regular rate and rhythm, no murmurs Vascular: 2+ radial bilaterally Abdomen: Soft, positive bowel Extremities: Well perfused, no peripheral edema Skin: No rashes or lesions. Neuro: Nonfocal Psych: Alert orient x3, normal affect and mood Results & Data ([facility]) Vital Signs (Past 12 Hours) Vital Signs Temp Pulse Pulse Resp BP Pulse Ox 09/24/20 08:45 53 L 09/24/20 08:40 97.9 F 56 L 20 137/88 96 09/24/20 04:06 97.3 F L 58 L 16 111/67 93 09/24/20 02:03 98.4 F 85 16 118/80 98 09/23/20 23:53 98.6 F 60 18 121/74 96 PG Care Time/CCT Total # of Minutes Spent Total Time Spent with Patient: Total time spent is greater than 50% in coordination of care (as documented) at patient's floor/unit and/or counseling patient: Coding Level of Care Code 06874 Inpt Consult Level 4 Diagnoses Abnormal nuclear stress test R94.39
[2020-09-24] MEDS: ZINC SULFATE 220 MG CAPSULE PO SCH ×2 (10:48→20:33)
[2020-09-24] MEDS: ASPIRIN 81 MG ECTAB PO SCH (10:48)
[2020-09-24] MEDS: VALSARTAN 80 MG TAB PO SCH (10:49)
[2020-09-24] MEDS: glipiZIDE 5 MG TAB PO SCH (10:49)
[2020-09-24] MEDS: hydroCHLOROthiazide 25 MG TAB PO SCH (10:50)
[2020-09-24] MEDS: allopurinoL 100 MG TAB PO SCH (10:50)
[2020-09-24] MEDS: PANTOprazole 40 MG TAB PO SCH (10:51)
[2020-09-24] MEDS: CALCIUM 600MG + VIT D 400 IU TAB PO SCH ×2 (10:51→20:34)
[2020-09-24] MEDS: FINASTERIDE 5 MG TAB PO SCH (11:39)
[2020-09-24] MEDS: CHOLECALCIFEROL 1,000 UNITS 25 MCG TAB PO SCH (11:40)
[2020-09-24] MEDS: PARoxetine HCL 20 MG TAB PO SCH (11:40)
--- NOTE | 2020-09-24 12:10 | Hospitalist Progress Note ---
Date of Service September 24, 2020 Assessment & Plan (1) Chest pain due to CAD: Suspected some of his underlying chest pain or shortness of breath possibly due to coronary artery disease. Not myocardial infarction but difficult to exclude stable/unstable angina Continue IV heparin drip pending cardiac catheterization as planned by cardiology Continue aspirin 81 mg p.o. daily, metoprolol 100 mg p.o. twice daily, valsartan 80 mg p.o. daily, rosuvastatin 20 mg p.o. daily (2) Abnormal nuclear stress test: As above (3) S/P coronary artery stent placement: 2000 (4) Atypical chest pain: His current chest pain is very unlikely cardiac. ESR and CRP relatively unremarkable regarding pleuritis/pericarditis. Suspect majority of his pain is neuropathic given previous improvement with his spinal stimulator. (5) Hypertension: Continue his usual medications with metoprolol, valsartan, hydrochlorothiazide, amlodipine. In addition to nitroglycerin 2% 1 inch paste - pending cardiac catheterization will consider isosorbide mononitrate on discharge (6) Hyperlipidemia: Continue rosuvastatin 20 mg p.o. every afternoon (7) DM type 2 (diabetes mellitus, type 2): HbA1c 7.1. Continue glipizide 5 mg p.o. daily BSG ACHS with sliding sclae for correction factor only. (8) Sarcoidosis: Notable history of this. Do not suspect this is was causing his chest pain with normal ESR/CRP and no bilateral hilar lymphadenopathy on chest x-ray. (9) Depression: Continue paroxetine 20 mg p.o. daily, prazosin 2 mg p.o. at bedtime (10) DVT prophylaxis: Continue IV heparin drip pending cardiac catheterization Admission and Anticipated Discharge Date Admission Date: September 23, 2020 Subjective Patient reports chest pain worse since yesterday. Severity 8/10. Radiation down left arm. He reports his spinal stimulator in his back is not working. 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 He is due to have replacement of the spinal stimulator as it is no longer working however awaiting [facility] to get notes from [place]. He reports when it was working it was helpful for his pain. He confirms again however his chest pain or shortness of breath is much worse recently and in setting of abnormal nuclear medicine scan difficult to exclude coronary artery disease. Reassuringly troponins negative overnight therefore his current chest pain is not a myocardial infarction. Review of Systems Review of Systems: All systems reviewed & are unremarkable except as noted in HPI & below Physical Exam Constitutional: well developed and well nourished; no acute distress Eyes: + anicteric sclerae; normal pupil size Respiratory: normal respiratory effort, lungs clear to auscultation Cardiovascular: RRR, no murmur, no edema Gastrointestinal (Abdomen): Inspection/Auscultation: normal bowel sounds Percussion/Palpation: + abdomen tender (RLQ, similar to previous day) and abdomen soft; no guarding and abdomen not rigid Musculoskeletal: no cyanosis or clubbing, extremities motor strength 5/5 Skin: no rashes, warm and dry Neurologic: moves all extremities and awake; not confused Results & Data Results & Data ([facility]) Vital Signs (Past 12 Hours) Vital Signs Temp Pulse Pulse Resp BP Pulse Ox 09/24/20 11:12 36.3 C L 59 L 18 147/93 H 96 09/24/20 08:45 53 L 09/24/20 08:40 36.6 C 56 L 20 137/88 96 09/24/20 04:06 36.3 C L 58 L 16 111/67 93 09/24/20 02:03 36.9 C 85 16 118/80 98 ECG Indication: chest pain Rate (beats per minute): 54 Rhythm: normal sinus Findings: + T-wave inversion (Anterior) Comparison ECG Date: from (September 23, 2020) Change: no significant change PG Care Time/CCT Total # of Minutes Spent Total Time Spent with Patient: Total time spent is greater than 50% in coordination of care (as documented) at patient's floor/unit and/or counseling patient: Coding Level of Care Code 07110 Subseq Obs Care Lvl 3 Diagnoses Chest pain due to CAD I25.119 Abnormal nuclear stress test R94.39 S/P coronary artery stent placement Z95.5 Atypical chest pain R07.89 Hypertension I10 Hyperlipidemia E78.5 DM type 2 (diabetes mellitus, type 2) E11.9 Sarcoidosis D86.9 Depression F32.9 DVT prophylaxis Z29.9
[2020-09-24] MEDS: METOPROLOL TARTRATE 100 MG TAB PO SCH ×2 (12:14→20:34)
[2020-09-24] MEDS: amLODIPine BESYLATE 5 MG TAB PO SCH (12:45)
[2020-09-24] MEDS ORDERED: fentaNYL citrate 100 MCG/2 ML VIAL ONE (13:05)
[2020-09-24] MEDS ORDERED: niCARdipine HCL INJ 2.5 MG/ML 10 ML AMP ONE (13:05)
[2020-09-24] MEDS ORDERED: MIDAZOLAM HCL 1 MG/ML 2ML VIAL ONE (13:05)
[2020-09-24] MEDS ORDERED: HEPARIN (PORCINE) 1000 UNIT/ML 10 ML (CATH LAB USE ONLY) ONE (13:05)
[2020-09-24] MEDS ORDERED: NITROGLYCERIN/D5W 100MCG/ML 20ML SYR ONE (13:06)
--- NOTE | 2020-09-24 13:26 | Pre Anesthesia Assessment ---
Date of Service September 24, 2020 Pre Sedation Assessment Vital Signs Temp Pulse Pulse Pulse Resp BP BP 09/24/20 11:12 97.3 F L 59 L 18 147/93 H 09/24/20 08:45 53 L 09/24/20 08:40 97.9 F 56 L 20 137/88 09/24/20 04:06 97.3 F L 58 L 16 111/67 09/24/20 02:03 98.4 F 85 16 118/80 09/23/20 23:53 98.6 F 60 18 121/74 09/23/20 21:00 66 09/23/20 19:21 54 L 09/23/20 19:14 99.3 F 55 L 17 129/78 09/23/20 18:30 57 L 16 104/71 09/23/20 18:23 60 16 128/82 09/23/20 18:05 98.8 F 51 L 16 142/86 H 09/23/20 17:01 56 L 19 09/23/20 17:00 56 L 14 128/84 09/23/20 16:45 53 L 12 09/23/20 16:31 53 L 12 09/23/20 16:30 55 L 13 121/85 09/23/20 16:15 53 L 14 09/23/20 16:01 56 L 15 09/23/20 16:00 56 L 17 122/86 09/23/20 15:45 58 L 15 09/23/20 15:31 56 L 15 09/23/20 15:30 58 L 13 129/89 09/23/20 15:15 58 L 15 09/23/20 15:01 55 L 13 09/23/20 15:00 56 L 15 126/86 09/23/20 14:45 58 L 15 09/23/20 14:30 57 L 15 124/85 09/23/20 14:00 66 14 132/90 09/23/20 13:30 59 L 12 118/78 Pulse Ox 09/24/20 11:12 96 09/24/20 08:45 09/24/20 08:40 96 09/24/20 04:06 93 09/24/20 02:03 98 09/23/20 23:53 96 09/23/20 21:00 09/23/20 19:21 12/21/20 19:14 97 09/23/20 18:30 99 09/23/20 18:23 100 09/23/20 18:05 100 09/23/20 17:01 95 09/23/20 17:00 96 09/23/20 16:45 97 09/23/20 16:31 95 09/23/20 16:30 95 09/23/20 16:15 95 09/23/20 16:01 97 09/23/20 16:00 98 09/23/20 15:45 97 09/23/20 15:31 96 09/23/20 15:30 96 09/23/20 15:15 97 09/23/20 15:01 97 09/23/20 15:00 96 09/23/20 14:45 98 09/23/20 14:30 99 09/23/20 14:00 97 09/23/20 13:30 96 Cardiovascular RRR, no murmur, no edema Respiratory normal respiratory effort, lungs clear to auscultation Pre-Sedation Airway Assessment Smoking Status: Never smoker Hx Sleep Apnea: No Hx Difficult Intubation: No Short, Thick Neck: No Thyromental Distance: > or= 3.5 Finger Breadths Oral Cavity: + WNL Mallampati Class: III ASA: ASA3 Procedure Planning Contraindications for Sedation: none Current Medications Reviewed: Yes Notes The planned sedation has been discussed with the patient. Informed Consent was obtained. I have identified the patient, determined the appropriateness of sedation and have assessed the patient immediately prior to the procedure. All medicine(s) and interventions are by my order.
[2020-09-24] MEDS ORDERED: ADENOSINE IV SOLN 3 MG/ML 20 ML VIAL IV ONE (13:38)
--- NOTE | 2020-09-24 15:05 | Post Anesthesia Assessment ---
Date of Service September 24, 2020 Post Sedation Assessment Vital Signs Temp Pulse Pulse Pulse Resp BP BP 09/24/20 14:10 98.2 F 60 16 154/88 H 09/24/20 11:12 97.3 F L 59 L 18 147/93 H 09/24/20 08:45 53 L 09/24/20 08:40 97.9 F 56 L 20 137/88 09/24/20 04:06 97.3 F L 58 L 16 111/67 09/24/20 02:03 98.4 F 85 16 118/80 09/23/20 23:53 98.6 F 60 18 121/74 09/23/20 21:00 66 09/23/20 19:21 54 L 09/23/20 19:14 99.3 F 55 L 17 129/78 09/23/20 18:30 57 L 16 104/71 09/23/20 18:23 60 16 128/82 09/23/20 18:05 98.8 F 51 L 16 142/86 H 09/23/20 17:01 56 L 19 09/23/20 17:00 56 L 14 128/84 09/23/20 16:45 53 L 12 09/23/20 16:31 53 L 12 09/23/20 16:30 55 L 13 121/85 09/23/20 16:15 53 L 14 09/23/20 16:01 56 L 15 09/23/20 16:00 56 L 17 122/86 09/23/20 15:45 58 L 15 09/23/20 15:31 56 L 15 09/23/20 15:30 58 L 13 129/89 09/23/20 15:15 58 L 15 Pulse Ox 09/24/20 14:10 95 09/24/20 11:12 96 09/24/20 08:45 09/24/20 08:40 96 09/24/20 04:06 93 09/24/20 02:03 98 09/23/20 23:53 96 09/23/20 21:00 09/23/20 19:21 09/23/20 19:14 97 09/23/20 18:30 99 09/23/20 18:23 100 09/23/20 18:05 100 09/23/20 17:01 95 09/23/20 17:00 96 09/23/20 16:45 97 09/23/20 16:31 95 09/23/20 16:30 95 09/23/20 16:15 95 09/23/20 16:01 97 09/23/20 16:00 98 09/23/20 15:45 97 09/23/20 15:31 96 09/23/20 15:30 96 09/23/20 15:15 97 Recovery Score Activity: Moves 4 extremities Respiration: Deep Breath/Cough Circulation: +/-20% PreAnes Value Consciousness: Fully Awake Oxygen Saturation: O2 needed for >90% Discharge Sedation Level of Care: Fast Track Phase II Post Sedation Plan On clinical assessment, the patient appears to have tolerated the sedation without complications. Patient is recovering as anticipated. Patient will continue to be monitored by nursing and may be discharged when sedation discharge criteria are met per below protocol. Upon Completions of procedure up to 15 minutes continue every 5 minute vital signs and the P.A.R. score; then discharge to a Phase I or Fast Track to Phase II per the following guidelines: * Discharge Patient to appropriate Phase II area if PAR is 8 or greater or return to pre- procedure baseline. The post - procedure orders will be as directed. * If PAR score is less than 8 or not return to pre-procedure baseline then patient will follow Phase I monitoring till PAR is reached for Phase II. The Phase I may be done in procedure room or may call to secure a Phase I area. * If naloxone or flumazenil are used for reversal, hold in Phase I for continue d monitoring from when last reversal dose was given for a minimum of 60 minutes or longer pending the nurse and/or physician discretion of patient condition before discharge to Phase II. Please call the Sedation Physician to re-evaluate and complete post-note for discharge to Phase II area. Do NOT discharge from procedure sedation or Phase 1 until post- sedation evaluation note is complete by procedure /sedation MD Sedation Discharge Instructions to be given to the patient at discharge to home.
--- NOTE | 2020-09-24 15:07 | Cardiac Catheterization ---
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 Cardiac Status Clinical evaluation leading to the procedure CAD Presenation: Positive Stress Test Anginal Classification: CCS IV Heart Failure: No Cardiogenic Shock within 24 Hours: No Cardiac Arrest within 24 Hours: No Imaging Studies Past 6 Months: Yes Stress Studies Past 6 Months: Yes Stress Testing w/SPECT MPI: Yes - Positive and Risk/Extent of Ischemia (Intermediate) Diagnostic Physicians Name: Matthieu De MD Status: Elective Closure Device Percutaneous Entry Location: Radial Closure Device: Radial Band Recommendations: Medical Therapy and/or Counseling Intraprocedure Events Significant Disection: No Perforation: No Cardiac Cath Procedure Full Procedure Date September 24, 2020 Pre-Procedure Diagnosis Pre-Procedure Diagnosis: Positive Stress Test AUC Score AUC Score: 7 Post-Procedure Diagnosis Post-Procedure Diagnosis: Moderate CAD and Normal Intracardiac Pressures Procedure(s) Performed Procedure(s) Performed: Coronary Angiography and Left Heart Cath Cost Reduction Engineer Matthieu De MD [place] Hand(s) Smuck Estimated Blood Loss Estimated Blood Loss: 10 Medication(s) Medication(s): Fentanyl, Heparin, Lidocaine 1%, Nicardipine, Nitroglycerin and Versed Summary of Findings Indication: Atypical chest pain, abnormal stress test with inferior/inferolateral ischemia Access: 6 Fr right radial artery Catheters: [place], JL 3.5 guide Findings: LM -large caliber vessel, no significant disease LAD -medium caliber, proximal luminal regularities, mid segment stent with 40 to 50% in-stent restenosis. Distal vessel without significant disease and tapers to apex. Large jailed first diagonal with 20 to 30% ostial stenosis. Ramusmedium caliber vessel without significant disease Circumflex -medium caliber, no significant disease RCA -dominant, medium caliber, mid segment luminal regularities. PDA, PLB without significant disease. LVEDP -13. FFR of LAD procedure: -Left main cannulated with JL 3.5 guide -BMW wire placed into distal LAD -ACIST Catheter placed across stenosis -Pd/Pa 0.94 -FFR 0.84 -Coronary angiography revealed no apparent complications post wire/catheter removal Summary: 1. Moderate nonobstructive single-vessel coronary artery disease -40 to 50% mid LAD in-stent restenosis (FFR 0.84). 2. Normal intracardiac filling pressure Recommendations: Constant atypical chest pain not secondary to coronary artery disease. Recent stress test is a false positive. Continued ASCVD risk factor modification Continued work-up for noncardiac chest pain. Hemodynamics Rest Ao:: 120/72/90 Final Ao: 149/71/102 LV: 137/13 Recommendations Recommendations: Medical Therapy and/or Counseling Specimens Specimens: None Radiation Exposure (mGy) 828 Contrast (mls) 50 Fluids (cc crystalloids) Fluids (cc crystalloids): 85 Drains Drains: None Anesthesia Moderate Procedural Complication(s) None Disposition PCU I attest to the content of the Intraoperative Record and any orders documented therein. Any exceptions are noted below. [employer] Card Cath Procedure Codes Cardiac Catheterization Procedure 1: Cardiovascular Cath Procedures: 07384 Coronaries and LHC (+/-LV) Procedure 2: Cardiovascular Cath Procedures: 13473 (Doppler) Pressure Wire Moderate Sedation Procedure 1: Sedation/Anesthesia: 76503 Mod Sedation by the same physician;Init15 Min Child Age 5 & Up Procedure 2: Sedation/Anesthesia: 55479 Mod Sedation by the same physician; Ea [id number] Minutes PG Care Time/CCT Total # of Minutes Spent Total Time Spent with Patient: Total time spent is greater than 50% in coordination of care (as documented) at patient's floor/unit and/or counseling patient:
--- NOTE | 2020-09-24 16:03 | Electrocardiogram Report ---
Test Reason : Blood Pressure : / mmHG Vent. Rate : 055 BPM Atrial Rate : 055 BPM P-R Int : 162 ms QRS Dur : 110 ms QT Int : 458 ms P-R-T Axes : 043 -01 -07 degrees QTc Int : 438 ms Sinus bradycardia Moderate voltage criteria for LVH, may be normal variant T wave abnormality, consider anterolateral ischemia Abnormal ECG When compared with ECG of 23-SEP-2020 10:18, No significant change was found Confirmed by Abhishek Caro ([id number]) on 09/24/2020 4:03:08 PM Referred By: [facility] Confirmed By:Abhishek Caro
--- NOTE | 2020-09-24 16:20 | Electrocardiogram Report ---
Test Reason : Blood Pressure : / mmHG Vent. Rate : 054 BPM Atrial Rate : 054 BPM P-R Int : 170 ms QRS Dur : 104 ms QT Int : 478 ms P-R-T Axes : 041 -04 -05 degrees QTc Int : 453 ms Sinus bradycardia Incomplete right bundle branch block Minimal voltage criteria for LVH, may be normal variant ( R in aVL ) T wave abnormality, consider anterior ischemia Abnormal ECG When compared with ECG of 23-SEP-2020 18:17, (unconfirmed) No significant change was found Confirmed by Abhishek Caro ([id number]) on 09/24/2020 4:19:42 PM Referred By: [facility] Confirmed By:Abhishek Caro
[2020-09-24] MEDS: PRAZOSIN HCL 1 MG CAP PO SCH (20:33)
[2020-09-24] MEDS: ROSUVASTATIN CALCIUM 20 MG TAB PO SCH (20:34)
[2020-09-25 06:27] LABS: Basophils # (auto) 0.01 K/uL (0-0.2); Basophils % (auto) 0.3 %; Eosinophils # (auto) 0.15 K/uL (0-0.5); Eosinophils % (auto) 4.6 %; Hematocrit (blood only) 37.2 % (42-52); Hemoglobin 12.2 g/dL (14.0-18.0); Lymphocytes # (auto) 1.23 K/uL (1.2-3.4); Lymphocytes % (auto) 37.5 %; Mean Corpuscular Hgb Conc 32.8 g/dL (32-36); Mean Corpuscular Volume 82.3 fL (80-100); Mean Platelet Volume 8.3 fL (7.4-10.4); Monocytes # (auto) 0.28 K/uL (0.11-0.59); Monocytes % (auto) 8.5 %; Neutrophils # (auto) 1.61 K/uL (1.4-6.5); Neutrophils % (auto) 49.1 %; Platelet Count 211 K/uL (130-400); RDW Coefficient of Variation 14.7 % (11.5-14.5); Red Blood Count 4.52 M/uL (4.7-6.1); White Blood Count 3.28 K/uL (4.8-10.8)
[2020-09-25 07:05] LABS: BUN Creatinine Ratio 13.4 (10-20); Creatinine Clr Calc Pharmacy 60.8 ml/min; Est GFR (African American) 59.9; Est GFR (Non-African American) 51.7
[2020-09-25] MEDS: CALCIUM 600MG + VIT D 400 IU TAB PO SCH (08:32)
[2020-09-25] MEDS: ZINC SULFATE 220 MG CAPSULE PO SCH (08:32)
[2020-09-25] MEDS: CHOLECALCIFEROL 1,000 UNITS 25 MCG TAB PO SCH (08:32)
[2020-09-25] MEDS: FINASTERIDE 5 MG TAB PO SCH (08:33)
[2020-09-25] MEDS: glipiZIDE 5 MG TAB PO SCH (08:33)
[2020-09-25] MEDS: hydroCHLOROthiazide 25 MG TAB PO SCH (08:33)
[2020-09-25] MEDS: ASPIRIN 81 MG ECTAB PO SCH (08:34)
[2020-09-25] MEDS: VALSARTAN 80 MG TAB PO SCH (08:34)
[2020-09-25] MEDS: amLODIPine BESYLATE 5 MG TAB PO SCH (08:34)
[2020-09-25] MEDS: PANTOprazole 40 MG TAB PO SCH (08:34)
[2020-09-25] MEDS: allopurinoL 100 MG TAB PO SCH (08:35)
[2020-09-25] MEDS: PARoxetine HCL 20 MG TAB PO SCH (08:35)
[2020-09-25] MEDS: INSULIN HUMAN REGULAR SC SCH ×2 (08:39→12:11)
[2020-09-25] MEDS ORDERED: METOPROLOL TARTRATE 25 MG TAB PO SCH (09:00)
[2020-09-25] MEDS: PROMETHAZINE HCL 12.5 MG in SODIUM CHLORIDE 0.9% 50 ML IV PRN (09:02)
[2020-09-25 10:07] LABS: Appearance Urine Clear (Clear); Bilirubin Urine Negative (Negative); Blood Urine Negative (Negative); Color Urine Yellow; Glucose Urine UA Negative (Negative); Ketones Urine Negative (Negative); Leukocyte Esterase Urine Negative (Negative); Nitrite Urine Negative (Negative); Protein Urine Negative (Negative); Specific Gravity Urine 1.014 (1.000-1.030); Urobilinogen Urine Negative (Negative); pH Urine 5.5 (4.5-7.5)
[2020-09-25] MEDS ORDERED: METOCLOPRAMIDE HCL 10 MG TABLET PO SCH (11:30)
--- NOTE | 2020-09-25 13:37 | Electrocardiogram Report ---
Test Reason : Blood Pressure : / mmHG Vent. Rate : 055 BPM Atrial Rate : 055 BPM P-R Int : 158 ms QRS Dur : 120 ms QT Int : 482 ms P-R-T Axes : 053 030 013 degrees QTc Int : 461 ms Sinus bradycardia Incomplete right bundle branch block Chronic T-wave inversion in Anterior leads Abnormal ECG When compared with ECG of 24-SEP-2020 08:18, No significant change was found Confirmed by Eric Escamilla ([id number]) on 09/25/2020 1:37:03 PM Referred By: [facility] Confirmed By:Eric Escamilla
--- NOTE | 2020-09-25 14:12 | Cardiology Progress Note ---
Date of Service September 25, 2020 Assessment & Plan (1) Abnormal nuclear stress test: 2. Atypical chest pain 3. History of coronary artery disease post remote stenting x2 4. Type 2 diabetes 5. Prior CVA 6. Anemia 7. History of asthma/question sarcoidosis 8. Hypertension 9. Dyslipidemia 10. Peptic ulcer disease Reviewed results of patient's cardiac catheterization from yesterday. Moderate nonobstructive in-stent restenosis on catheterization not the cause of patient's chest pain. Stress test was a false positive. Serum creatinine up slightly today. IV fluids today and repeat tomorrow. Continue ASCVD risk factor modification. Consider increasing Crestor to 40 mg daily. Continue aspirin, antihypertensives. Cardiology to sign off. Can follow-up on an as-needed basis. Admission and Anticipated Discharge Date Admission Date: September 23, 2020 Subjective Denies significant chest pain. No significant pain at right radial artery access site. Telemetry reviewedno events Review of Systems Review of Systems: All systems reviewed & are unremarkable except as noted in HPI & below Physical Exam Physical Exam: General: Comfortable, no acute distress Eyes: Sclerae anicteric Lungs: Clear to auscultation bilaterally Cardiac: Regular rate and rhythm, no murmurs Vascular: Right radial artery access site with no ecchymosis, hematoma. Distal pulse and sensation intact. Extremities: Well perfused, no peripheral edema Neuro: Nonfocal Psych: Alert orient x3, normal affect and mood Results & Data ([facility]) Vital Signs (Past 12 Hours) Vital Signs Temp Pulse Pulse Resp BP BP Pulse Ox 09/25/20 11:22 98.4 F 55 L 18 125/77 94 09/25/20 08:00 98.1 F 52 L 18 137/88 95 09/25/20 07:13 59 L 09/25/20 04:00 97.9 F 56 L 18 137/88 96 PG Care Time/CCT Total # of Minutes Spent Total Time Spent with Patient: Total time spent is greater than 50% in coordination of care (as documented) at patient's floor/unit and/or counseling patient: Coding Level of Care Code 93015 Subseq Hosp Care Lvl 3 Diagnoses Abnormal nuclear stress test R94.39
[2020-09-25] MEDS ORDERED: guaiFENesin/DEXTROM SYRUP 100MG/10MG 5ML UDC PO ONE (15:00)
--- NOTE | 2020-09-25 15:02 | Discharge Summary ---
Date of Service September 25, 2020 Admission HPI Per Admitting Provider Mr. Curtis is a 54 year old male inmate with a history of Type 2 Diabetes Mellitus, Hypertension, Hyperlipidemia, Asthma, Sarcoidosis, Prior CVA, Arthritis, PUD, Depression, BPH, Iron Deficiency Anemia, SBO s/p Surgical Intervention 2014, and CAD s/p 2 Intracoronary Stents > 10 years ago (details unknown) -- who underwent a Lexiscan Cardiolite in 09/20/2020 for chest pain and dyspnea and it was abnormal and showed inferior and inferolateral ischemia. Patient experienced chest pain and shortness of breath during this nuclear study. Patient continues to experience chest pain off and on, which radiates to his left neck, shoulder, and arm with associated nausea/vomiting and RLQ discomfort (likely secondary to vomiting). These symptoms have been intermittent over the weekend, seem to come and go at random, are not necessarily worsened with exertion, and sometimes he exacerbates the pain by taking a deep breath. Patient denies any associated diaphoresis. [facility] today, so due to his ongoing symptoms -- they referred patient [facility] for further evaluation and treatment recommendations. Thus far, his evaluation shows a Troponin I of 0.015 ng/mL. EKG shows normal sinus rhythm with an incomplete RBBB and anterior T wave abnormalities, consider anterior ischemia. Admission Exam Per Admitting Provider GENERAL: Patient in no acute distress. HEENT: Head is atraumatic, normocephalic. EOM's intact. Facies symmetric. No perioral cyanosis. NECK: No JVD. JVP is at the level of the clavicle sitting upright. Carotid upstrokes are + 2 bilaterally. No bruits are noted. CHEST/LUNGS: Clear to auscultation throughout all lung mendosa. No wheezes, ral es, or crackles. CVS: S1 and S2 are regular, bradycardic without obvious murmurs, gallops, or rubs. PMI is nondisplaced. No lifts, heaves, or thrills. No abdominal aortic or renal bruits. ABDOMINAL EXAM: Bowel sounds are present. No masses, organomegaly, or tenderness. No guarding, rigidity, or rebound tenderness noted. EXTREMITIES: No clubbing or cyanosis. No edema. Intact posterior tibial and radial pulses bilaterally. Omar's test positive for both right radial and ulnar arterial reflow. NEUROLOGIC EXAM: Patient is awake, alert, and oriented. Pleasant and cooperative. Answers questions appropriately. Speech is clear. Normal movement in all 4 extremities. MUSCULOSKELETAL EXAM: Mild reproducible left anterior chest wall tenderness. No bony deformity or crepitus. Principal Diagnosis Non-cardiac chest pain Suspect dysautonomia causing ongoing nausea Discharge Exam Constitutional well developed and well nourished; no acute distress Eyes + anicteric sclerae; normal pupil size Respiratory normal respiratory effort, lungs clear to auscultation Cardiovascular RRR, no murmur, no edema Gastrointestinal (Abdomen) Inspection/Auscultation: normal bowel sounds Percussion/Palpation: + abdomen tender (RLQ, similar to previous day) and abdomen soft; no guarding and abdomen not rigid Musculoskeletal no cyanosis or clubbing, extremities motor strength 5/5 Skin no rashes, warm and dry Neurologic moves all extremities and awake; not confused Discharge Data Allergies Allergy/AdvReac Type Severity Reaction Status Date / Time lisinopril Allergy Severe ANAPHYLAXIS Verified 09/23/20 10:47 ibuprofen Allergy Intermediate HIVES Verified 09/23/20 10:47 morphine Allergy Intermediate HIVES Verified 09/23/20 10:47 capsaicin Allergy Unknown . Verified 09/23/20 10:47 phenytoin Allergy Unknown unk Verified 09/23/20 10:47 Consultations 09/23/20 14:00 ED Decision to Admit Stat 09/23/20 19:41 Consult Cardiology Routine Procedures Performed Operation Date: 09/24/20 13:30 Actual Procedures p Cath, Left with Cors and Vent - Carmine De MD s Cineradiography w/Routine Exam - Carmine De MD s Fraction Flow [place] SGL Ves - Carmine De MD Ordered Studies 09/23/20 10:43 CT abd pelvis IV con only Stat CLINICAL HISTORY: Right lower quadrant abdominal pain. Nausea and vomiting. Covid. COMPARISON STUDY: Abdominal CT dated 01/23/2016 scans 06/07/2015. TECHNIQUE: Following the IV administration of 94 cc of Optiray 320, CT scan of the abdomen and pelvis is performed from the lung bases to the proximal femora. Images are reviewed in the axial, sagittal, and coronal planes. IV contrast was administered without complication. A dose lowering technique was utilized adhering to the principles of ALARA. CT DOSE: 735.43 mGycm FINDINGS: Lung bases: The heart is normal in size and without pericardial effusion. The lung bases are clear. There is a moderate hiatal hernia. Liver: The contrast-enhanced liver is normal in size and contour. The liver demonstrates diffusely diminished attenuation consistent with hepatic steatosis. Fatty sparing is seen adjacent to gallbladder fossa. There is no intrahepatic biliary ductal dilatation. The hepatic veins and portal veins are patent. A 2.3 cm hypervascular lesion in the left lobe is present dating back to 2014 and likely represents a hemangioma. Gallbladder: Unremarkable. Spleen: Normal in size and attenuation. Pancreas: Unremarkable. Adrenal glands: Unremarkable. Kidneys: The contrast enhanced kidneys are normal in size and without hyd ronephrosis. The kidneys enhance symmetrically. Abdominal vasculature: The abdominal aorta is normal in course and caliber. Bowel: There is no bowel obstruction. Mild to moderate fecal retention is noted in the colon. There is a large duodenal diverticulum. The appendix is well- visualized and normal. Peritoneum: There is no intraperitoneal free air or abdominal ascites. There is a midline surgical scar. Lymphadenopathy: None. Pelvic viscera: The bladder, prostate, and seminal vesicles are normal as imaged. There are bilateral fat-containing inguinal hernias. Skeletal structures: No lytic or blastic lesions are seen. A neurostimulator device is present in the right gluteal soft tissues. Leads extend into the Central canal and the lower thoracic region. IMPRESSION: 1. There are no acute infectious or inflammatory findings in the abdomen or pelvis. 2. Hepatic steatosis. 3. Additional findings as above. 09/24/20 13:11 CL Cath Imgs for PACS use only Stat Hospital Course (1) Chest pain due to CAD: Janak Curtis is a 54 year old male admitted to [facility] from September 23-2019 due to chest pain, nausea and right lower quadrant abdominal pain with outpatient abnormal nuclear medicine myocardial perfusion scan. Chest pain workup included negative d-dimer, unremarkable CRP/ESR and chest XR. Serial troponins negative. Cardiac catheterization showed moderate nonobstructive single-vessel coronary artery disease with 40 to 50% mid LAD in-stent restenosis. His chest pain is not felt to be cardiac and myocardial perfusion scan is a false positive. His ongoing chest pain is most likely neuropathic coming from his back For which I understand the plan is to replace his spinal stimulator which was previously helpful. His nausea is reportedly longstanding but worse since his COVID-19 diagnosis. Recommend referral to gastroenterology as an outpatient for further workup as needed however he is tolerating both liquids and solids while here with the addition of metoclopramide he has found helpful suggestive of dysautonomia (in setting of diabetes and COVID-19 which can make this worse). I would also consider iatrogenic causes but his medication timelines are not readily available to correlate with his symptoms. He also reported difficulty urinating and increased frequency. PSA 0.175. No urinary retention on exam or imaging. He is already taking prazosin and finasteride for this therefore could consider referral to urology as needed. UA negative for infection. No etiology found regarding his right lower quadrant abdominal pain with CT abdomen pelvis with IV contrast which showed hepatic steatosis, no acute infectious or inflammatory findings in the abdomen or pelvis. He is now medically stable for discharge. Kind regards, Dr Willy Hayward (2) Abnormal nuclear stress test: (3) S/P coronary artery stent placement: (4) Atypical chest pain: (5) Hypertension: (6) Hyperlipidemia: (7) DM type 2 (diabetes mellitus, type 2): (8) Sarcoidosis: (9) Depression: (10) DVT prophylaxis: Total Time Total Time Spent Total Time Spent (In Minutes): 25 Discharge Plan Discharge Items [facility] Disposition: [facility] Reason For Visit: CHEST PAIN, ABNORMAL LEXISCAN CARDIOLITE 09/20/20 Discharge Diagnosis: Non-cardiac chest pain Suspect dysautonomia causing ongoing nausea Activity: Resume your previous activity Non-emergency contact: Primary Care Provider Call non-emergency contact if: you have any medication questions and your symptoms worsen Follow-up/Referrals: Shasta PEREIRA [Primary Care Provider] - Diet: Heart Healthy Addtl Attending Provider Instructions: You were admitted to [facility] from September 23-2019 due to chest pain, nausea and right lower quadrant abdominal pain with outpatient abnormal nuclear medicine myocardial perfusion scan.Chest pain workup including negative d-dimer, unremarkable CRP/ESR and chest XR. Serial troponins negative. Cardiac catheterization showed moderate nonobstructive single-vessel coronary artery disease with 40 to 50% mid LAD in-stent restenosis. His chest pain is not felt to be cardiac and myocardial perfusion scan is a false positive. His ongoing chest pain is most likely neuropathic coming from his back For which I understand the plan is to replace his spinal stimulator which was previously helpful. His nausea is reportedly longstanding but worse since his COVID-19 diagnosis. Recommend referral to gastroenterology as an outpatient for further workup as needed however he is tolerating both liquids and solids while here with the addition of metoclopramide he has found helpful suggestive of dysautonomia (in setting of diabetes and COVID-19 which can make this worse). I would also consider iatrogenic causes but his medication timelines are not readily available to correlate with his symptoms. He also reported difficulty urinating and increased frequency. PSA 0.175. No urinary retention on exam or imaging. He is already taking prazosin and f inasteride for this therefore could consider referral to urology as needed. UA negative for infection. No etiology found regarding his right lower quadrant abdominal pain with CT abdomen pelvis with IV contrast which showed hepatic steatosis, no acute infectious or inflammatory findings in the abdomen or pelvis. He is now medically stable for discharge. Kind regards, Dr Willy Hayward Pending Studies at Discharge: No Skilled Items Patient informed of condition?: Yes DNR: No Discharge Level of Care: Other Communicable Disease: No Discharge Prognosis: Stable Lines: None Urinary Catheter: No Medications and DC Order Prescriptions: New metoclopramide HCl 5 mg tablet 5 mg PO ACHS PRN (Reason: nausea and vomiting) Qty: 30 RF: 0 Continued metoprolol tartrate 100 mg Tablet 100 mg PO BID RF: 0 sennosides-docusate sodium [Senna Plus] 8.6-50 mg Tablet 1 tab-cap PO BID PRN (Reason: Constipation) RF: 0 valsartan 80 mg Tablet 80 mg PO DAILY RF: 0 amlodipine 5 mg Tablet 5 mg PO DAILY RF: 0 calcium carbonate-vitamin D3 600 mg(1,500mg) -200 unit Tablet 2 tab PO BID RF: 0 allopurinol 100 mg Tablet 100 mg PO DAILY RF: 0 aspirin 81 mg Tablet,Delayed Release (Dr/Ec) 81 mg PO DAILY RF: 0 pantoprazole 20 mg Tablet,Delayed Release (Dr/Ec) 20 mg PO DAILY RF: 0 zinc sulfate 220 mg Tablet 220 mg PO BID RF: 0 paroxetine HCl 20 mg Tablet 20 mg PO DAILY RF: 0 Novolin R Regular U-100 Insuln 100 unit/mL Solution 0 unit SUBCUT UD RF: 0 hydrochlorothiazide 25 mg Tablet 25 mg PO DAILY RF: 0 finasteride 5 mg Tablet 5 mg PO DAILY RF: 0 glipizide 5 mg Tablet 5 mg PO DAILY RF: 0 prazosin 2 mg Capsule 2 mg PO HS RF: 0 hydroxyzine pamoate [Vistaril] 25 mg Capsule 25 mg PO BID PRN (Reason: Anxiety) RF: 0 rosuvastatin 20 mg Tablet 20 mg PO QPM RF: 0 cholecalciferol (vitamin D3) [Vitamin D3] 25 mcg (1,000 unit) Tablet 25 mcg PO DAILY RF: 0 Admission Data Admit Date/Time: 09/23/20 15:09 Attending Provider: Willy Hayward Admit Provider: Willy Hayward Primary Care Provider: Shasta PEREIRA Other Providers: Willy Hayward ; Tomás Alicia Other Interventions: Discharge Summary Assessment (RN) Last Done: 09/25/20 15:28 Coding Level of Care Code 54799 OBS Care - Discharge Diagnoses Chest pain due to CAD I25.119 Abnormal nuclear stress test R94.39 S/P coronary artery stent placement Z95.5 Atypical chest pain R07.89 Hypertension I10 Hyperlipidemia E78.5 DM type 2 (diabetes mellitus, type 2) E11.9 Sarcoidosis D86.9 Depression F32.9 DVT prophylaxis Z29.9
[2020-09-25] MEDS ORDERED: TAMSULOSIN HCL 0.4 MG CAP PO SCH (21:00)
== END 2020-09-25 16:27 ==
LOC: 2S 10:09 → ED 10:09 → 2S 17:08

== ENCOUNTER 2021-07-20 23:47 | Inpatient (IN) ==
--- NOTE | 2021-07-21 00:15 | Emergency Department Note ---
History of Present Illness General Chief Complaint: Chest Pain Stated Complaint: CHEST PAIN;S/P-CPR;SEIZURE Time Seen by Provider: 07/20/21 23:49 History of Present Illness Maximum Pain Intensity: 10 This 55-year-old prisoner presents to the ER complaining of chest pain that passed out and staff did CPR as they thought he was in asystole Location: chest Quality: Pain Severity: Moderate Duration: Today Timing: Today Context: Patient went to the [facility] for chest pain collapsed may be seized and they started CPR Modifying factors: better with nothing; worse with activity Patient states he has 2 stents. He does have heart disease. He does not smoke. Patient complains of ongoing chest pain that radiates to his back. Patient denies numbness, tingling, fever, chills, flulike illness. No history of heart failure. He states he had a mini stroke in the past. Home Medications Medication Instructions Recorded Confirmed Type allopurinol 100 mg tablet 100 mg PO QAM 09/23/20 07/21/21 History amlodipine 5 mg tablet 5 mg PO QAM 09/23/20 07/21/21 History aspirin 81 mg tablet,delayed 81 mg PO QAM 09/23/20 07/21/21 History release calcium carbonate 600 mg (1,500 2 tab PO BID 09/23/20 07/21/21 History mg)-vitamin D3 200 unit tablet finasteride 5 mg tablet 5 mg PO QAM 09/23/20 07/21/21 History glipizide 5 mg tablet 5 mg PO QAM 09/23/20 07/21/21 History hydrochlorothiazide 25 mg tablet 25 mg PO QAM 09/23/20 07/21/21 History insulin regular human 100 unit/mL 0 unit SUBCUT UD 09/23/20 07/21/21 History injection solution (Novolin R Regular U-100 Insulin) metoprolol tartrate 100 mg tablet 100 mg PO BID 09/23/20 07/21/21 History pantoprazole 20 mg tablet,delayed 20 mg PO QAM 09/23/20 07/21/21 History release rosuvastatin 20 mg tablet 20 mg PO QPM 09/23/20 07/21/21 History valsartan 80 mg tablet 80 mg PO QAM 09/23/20 07/21/21 History levalbuterol tartrate 45 2 inh INHALATION QID PRN 01/25/21 07/21/21 History mcg/actuation aerosol inhaler (Xopenex HFA) methocarbamol 500 mg tablet 500 mg PO BID PRN 01/25/21 07/21/21 History ciclesonide 160 mcg/actuation 1 puff INHALATION BID 07/21/21 07/21/21 History aerosol inhaler (Alvesco) docusate sodium 100 mg capsule 200 mg PO BID 07/21/21 07/21/21 History sucralfate 1 gram tablet 1 g PO AC 07/21/21 07/21/21 History Allergies Allergy/AdvReac Type Severity Reaction Status Date / Time lisinopril Allergy Severe ANAPHYLAXIS Verified 01/25/21 18:59 ibuprofen Allergy Intermediate HIVES Verified 01/25/21 18:59 morphine Allergy Intermediate HIVES Verified 01/25/21 18:59 capsaicin Allergy Unknown . Verified 01/25/21 18:59 phenytoin Allergy Unknown unk Verified 01/25/21 18:59 Past Med/Surg History Medical History Asthma Bowel obstruction Depression DM type 2 (diabetes mellitus, type 2) Head injury History of CVA (cerebrovascular accident) Hx SBO Hyperlipidemia Hypertension Iron deficiency anemia Peptic ulcer disease Sarcoidosis Skin cancer Surgical History H/O exploratory laparotomy "05/31/2015 with lysis of adhesions, release of bowel obstruction, repair of incisional hernia" H/O ventral hernia repair History of back surgery S/P cardiac cath S/P coronary artery stent placement (05/07/13) "2000" Social History Smoking Status: Unknown if ever smoked Hx Alcohol Use: No Hx Substance Use: No Preferred Language: Bulgarian Communication Ability: Effective Print Line Feeder Required: No Beliefs That Will Affect Care: None Current Living Situation: Other Current Living Situation Comment: retirement Feels Safe at Home: Yes Assistive Devices: None Review of Systems A total of 10 systems reviewed and were otherwise negative Physical Exam Vital Signs Vital Signs - 24 hr 07/20/21 23:57 07/21/21 00:45 07/21/21 02:30 Pulse Rate 71 73 80 Pulse Rate from SpO2 Sensor 73 80 Respiratory Rate 22 19 18 Blood Pressure 155/104 H 155/90 H 139/86 Blood Pressure Mean 121 111 103 Pulse Oximetry 100 100 98 Oxygen Delivery Method Room Air Room Air Room Air Sepsis Recent Fever Within 48 Hours No Sepsis New/Unexplained Change in Mental Status No Sepsis Action Taken by Nursing No Action Required 07/21/21 03:00 Pulse Rate 69 Pulse Rate from SpO2 Sensor 71 Respiratory Rate 17 Blood Pressure 151/89 H Blood Pressure Mean 109 Pulse Oximetry 98 Oxygen Delivery Method Room Air Sepsis Recent Fever Within 48 Hours Sepsis New/Unexplained Change in Mental Status Sepsis Action Taken by Nursing VITALS: Vitals are noted on the nurse's note and reviewed by myself. Vital signs stable. GENERAL: Prisoner in [facility], in no acute distress, nondiaphoretic, well- developed well-nourished. SKIN: The skin was without rashes, erythema, edema, or bruising. There is no tenting of the skin. Capillary reflex less than 2 seconds. HEAD: Normocephalic atraumatic. EARS: External auditory canals clear, EYES: Pupils equal round and reactive to light and accommodation. Conjunctivae without injection, sclerae without icterus. Extraocular movements intact. NOSE: Patent, turbinates without inflammation or discharge. MOUTH: Mucous membranes moist. Pharynx without erythema or exudate. Uvula midline. Airway patent. Tongue does not deviate. NECK: Supple without nuchal rigidity. No lymphadenopathy. No thyromegaly. Cervical spine is nontender. No JVD. HEART: Regular rate and rhythm LUNGS: Clear to auscultation bilaterally without wheezes, rales or rhonchi. No retractions or accessory muscle use. ABDOMEN: Positive bowel sounds x 4. Normal tympanic percussion. Soft, nontender, without masses or organomegaly. Munoz sign negative. No guarding or rebound tenderness. No CVA tenderness MUSCULOSKELETAL: No muscle atrophy, erythema, or edema noted. NEURO: Patient was alert and oriented to person place and time. Normal sensation to light and sharp touch. No focal neurological deficits. Course Administered Medications Discontinued Medications Acetaminophen (Ofirmev) 1,000 mg in 100 mls @ 400 mls/hr IV NOW STA Stop: 07/21/21 02:12 Last Infusion: 07/21/21 02:31 Dose: 0 mls/hr Documented by: [id number] Admin: 07/21/21 02:16 Dose: 400 mls/hr Documented by: [id number] Ioversol (Optiray 320 125ml) 125 ml IV ONCE ONE Stop: 07/21/21 01:44 Last Admin: 07/21/21 01:44 Dose: 120 ml Documented by: [id number] Medical Decision Making Medical Records Attestation: I reviewed the patient's medical records. Home Medications Current Medication List: was personally reviewed by me Laboratory Data Attestation: I reviewed the patient's lab results. Result diagrams: 07/21/21 00:10 07/21/21 00:10 Labs: Lab Results 07/21/21 07/21/21 07/21/21 Range/Units 00:10 00:10 00:10 WBC 5.62 (4.8-10.8) K/uL RBC 5.16 (4.7-6.1) M/uL Hgb 14.4 (14.0-18.0) g/dL POC Hgb (14.0-18.0) g/dl Hct 43.1 (42-52) % POC Hct (42-52) % MCV 83.5 (80-100) fL MCH 27.9 (25-34) pg MCHC 33.4 (32-36) g/dL RDW Std Deviation 43.5 (36.4-46.3) fL RDW Coeff of Eliana 14.2 (11.5-14.5) % Plt Count 283 (130-400) K/uL MPV 8.9 (7.4-10.4) fL Immature Gran % (Auto) 0.5 % Neut % (Auto) 69.5 % Lymph % (Auto) 20.6 % Sumner % (Auto) 6.9 % Eos % (Auto) 2.3 % Baso % (Auto) 0.2 % Neut # (Auto) 3.90 (1.4-6.5) K/uL Lymph # (Auto) 1.16 L (1.2-3.4) K/uL Sumner # (Auto) 0.39 (0.11-0.59) K/uL Eos # (Auto) 0.13 (0-0.5) K/uL Baso # (Auto) 0.01 (0-0.2) K/uL Immature Gran # (Auto) 0.03 H (0.00-0.02) K/uL Platelet Estimate Normal (Normal) APTT 20.7 L (21.0-31.0) Seconds PTT Ratio 0.8 POC Sodium (135-144) mmol/L Sodium 140 (136-145) mmol/L POC Potassium (3.3-5.0) mmol/L Potassium 3.7 (3.5-5.1) mmol/L POC Chloride (101-112) mmol/L Chloride 107 (98-107) mmol/L Carbon Dioxide 28 (21-32) mmol/L POC Total CO2 (24-31) mmol/L Anion Gap 6.0 (3-11) POC Anion Gap (16-25) mmol/L POC BUN (7-18) mg/dl BUN 22 H (7-18) mg/dl Creatinine 1.40 (0.6-1.4) mg/dl POC Creatinine (0.6-1.3) mg/dl Est Cr Clr Drug Dosing Not Reportable Est GFR ( Amer) 64.2 ml/min Est GFR (Non-Af Amer) 55.4 ml/min BUN/Creatinine Ratio 15.6 (10-20) Glucose 193 H (70-99) mg/dl POC Glucose (other) (70-99) mg/dl Calcium 9.4 (8.5-10.1) mg/dl POC Ioniz Calcium Nury (1.12-1.32) mmol/l Total Bilirubin 0.3 (0.2-1) mg/dl AST 25 (15-37) U/L ALT 29 (12-78) U/L Alkaline Phosphatase 96 (45-117) U/L Troponin I < 0.015 (0-0.045) ng/ml Total Protein 8.3 H (6.4-8.2) gm/dl Albumin 4.1 (3.4-5.0) gm/dl Globulin 4.2 H (2.5-4.0) gm/dl Albumin/Globulin Ratio 1.0 (0.9-2) Lipase 193 (73-393) U/L Specimen Hemolysis COVID-19 Eval Order 07/21/21 07/21/21 07/21/21 Range/Units 00:18 02:52 04:05 WBC (4.8-10.8) K/uL RBC (4.7-6.1) M/uL Hgb (14.0-18.0) g/dL POC Hgb 15.3 (14.0-18.0) g/dl Hct (42-52) % POC Hct 45 (42-52) % MCV (80-100) fL MCH (25-34) pg MCHC (32-36) g/dL RDW Std Deviation (36.4-46.3) fL RDW Coeff of Eliana (11.5-14.5) % Plt Count (130-400) K/uL MPV (7.4-10.4) fL Immature Gran % (Auto) % Neut % (Auto) % Lymph % (Auto) % Sumner % (Auto) % Eos % (Auto) % Baso % (Auto) % Neut # (Auto) (1.4-6.5) K/uL Lymph # (Auto) (1.2-3.4) K/uL Sumner # (Auto) (0.11-0.59) K/uL Eos # (Auto) (0-0.5) K/uL Baso # (Auto) (0-0.2) K/uL Immature Gran # (Auto) (0.00-0.02) K/uL Platelet Estimate (Normal) APTT (21.0-31.0) Seconds PTT Ratio POC Sodium 141 (135-144) mmol/L Sodium (136-145) mmol/L POC Potassium 3.7 (3.3-5.0) mmol/L Potassium (3.5-5.1) mmol/L POC Chloride 104 (101-112) mmol/L Chloride (98-107) mmol/L Carbon Dioxide (21-32) mmol/L POC Total CO2 22 L (24-31) mmol/L Anion Gap (3-11) POC Anion Gap 20.0 (16-25) mmol/L POC BUN 23 H (7-18) mg/dl BUN (7-18) mg/dl Creatinine (0.6-1.4) mg/dl POC Creatinine 1.2 (0.6-1.3) mg/dl Est Cr Clr Drug Dosing Est GFR ( Amer) ml/min Est GFR (Non-Af Amer) ml/min BUN/Creatinine Ratio (10-20) Glucose (70-99) mg/dl POC Glucose (other) 191 H (70-99) mg/dl Calcium (8.5-10.1) mg/dl POC Ioniz Calcium Nury 1.16 (1.12-1.32) mmol/l Total Bilirubin (0.2-1) mg/dl AST (15-37) U/L ALT (12-78) U/L Alkaline Phosphatase (45-117) U/L Troponin I 0.016 (0-0.045) ng/ml Total Protein (6.4-8.2) gm/dl Albumin (3.4-5.0) gm/dl Globulin (2.5-4.0) gm/dl Albumin/Globulin Ratio (0.9-2) Lipase (73-393) U/L Specimen Hemolysis COVID-19 Eval Order Covid19 at [facility] MDM Narrative Prior records/ancillary studies reviewed. Triage Nursing notes reviewed. Additional history obtained from nursing. The patient's history was concerning for chest pain. Differential diagnosis: Etiologies such as cardiac ischemia, aortic dissection, pulmonary embolism, pneumonia, pneumothorax, musculoskeletal, infections, pericarditis, myocarditis, esophageal rupture, gastrointestinal, as well as others were entertained. Physical examination: As above. ER treatment provided: An order was placed for continuous cardiac monitoring. The monitor shows a rate of 60-100 with a sinus rhythm. Patient was observed On reassessment the patient felt better. Diagnostic interpretation by me: The electrocardiogram was ordered for chest pain EKG: Normal sinus, diffuse T wave inversions, incomplete right bundle branch block, rate of 85. EKG compared to prior EKG with no acute changes noted. Impression normal sinus with diffuse T wave inversions unchanged from prior interpreted by myself I think arrhythmia is unlikely. EKG shows no interval abnormalities such as QT prolongation or WPW. There are no findings to suggest Brugada syndrome. Cardiac monitoring in the emergency department reveals no tachycardic or bradycardic dy srhythmia. Hypertrophic cardiomyopathy was considered but there are no clear historical elements pointing toward this. EKG is not suggestive. The QRS voltage is not extremely large and there are no suggestive Q waves. The labs revealed negative troponin, repeat is negative but slightly higher. Imaging studies: Preliminary Findings Only See Final Report For Complete Findings CT CHEST Without Contrast: Aortic wall appears normal without thickening or high attenuation CTA CHEST: Direct comparison made to prior study of January 25, 2021. Heart is normal in size. Thoracic aorta appears normal. There is no pulmonary embolism. There is a large hiatal hernia. Mediastinal lymph nodes are not enlarged. Central airways appear normal. Lungs are clear without focal consolidation. There is a neuro stimulating device in the thoracic spine tip is at the level of T5. Impression: No acute findings. No pulmonary embolism Radiologist: Tima Velasquez MD HEART SCORE: Hx: high/mod/low suspicion: 0 ECG: ST depression/nonspecific changes/normal: 0 Age: Greater than 65/45-64/less than 45: 1 Risk factors: (Hypertension, hyperlipidemia, diabetes, coronary disease, tobacco use, cocaine use): 1 Troponin: Greater than 2 times normal limits/1-2 times normal limits/normal: 0 Total: 2 Exam and history seem consistent with chest pain with unclear etiology. Repeat troponin slightly higher than baseline troponin. Patient did pass out with the chest pain. Medicine was consulted. They will evaluate for possible admission. By the evaluation outlined above emergent etiologies such as aortic dissection, pulmonary embolism, pneumonia, pneumothorax, infections, pericarditis, myocarditis, gastrointestinal, as well as others were deemed relatively unlikely. The pt informed about the findings as listed above. All questions were answered and pleased with the treatment. The chart was completed utilizing [employer] Speech voice recognition software. Grammatical errors, random word insertions, pronoun errors, and incomplete sentences are an occassional consequence of this system due to software limitations, ambient noise, and hardware issues. Any formal questions or concerns about the content, text, or information contained within the body of this dictation should be directly addressed to the physician medical assistant supervisor for clarification. Impression & Plan Atypical chest pain, Syncope Discharge Plan Visit Data Chief Complaint: Chest Pain Stated Complaint: CHEST PAIN;S/P-CPR;SEIZURE ED Provider: Clair Coello ED Midlevel Provider: Helene Monique Discharge Problem: Atypical chest pain, Syncope Patient Disposition: Being Evaluated by Hospitalist Condition: Good Discharge Instructions Haley/Other Patient Handouts: ED Chest Pain, Uncertain Cause Activity Restrictions/Additional Instructions: Acetaminophen(Tylenol) may be used for fever or pain. Use 1000mg every six hours as needed. Avoid using more than 3000mg in a 24 hour period. Rest and drink plenty of fluids as tolerated. Continue current medications. Avoid strenuous activities and anything that worsens your pain. Resume normal activities once your symptoms resolve. Return to the ER immediately for worsening or persistent chest pain, abdominal pain, vomiting, fevers, chest pains, difficulty breathing, worsening of your condition, or as needed. Follow up with your primary physician in 2-3 days for a recheck of your current condition. Forms Stand Alone Forms: My [facility] Prescriptions Prescriptions: No Action metoprolol tartrate 100 mg Tablet 100 mg PO BID RF: 0 valsartan 80 mg Tablet 80 mg PO QAM RF: 0 amlodipine 5 mg Tablet 5 mg PO QAM RF: 0 calcium carbonate-vitamin D3 600 mg(1,500mg) -200 unit Tablet 2 tab PO BID RF: 0 allopurinol 100 mg Tablet 100 mg PO QAM RF: 0 aspirin 81 mg Tablet,Delayed Release (Dr/Ec) 81 mg PO QAM RF: 0 pantoprazole 20 mg Tablet,Delayed Release (Dr/Ec) 20 mg PO QAM RF: 0 Novolin R Regular U-100 Insuln 100 unit/mL Solution 0 unit SUBCUT UD RF: 0 hydrochlorothiazide 25 mg Tablet 25 mg PO QAM RF: 0 finasteride 5 mg Tablet 5 mg PO QAM RF: 0 glipizide 5 mg Tablet 5 mg PO QAM RF: 0 rosuvastatin 20 mg Tablet 20 mg PO QPM RF: 0 Alvesco 160 mcg/actuation Hfa Aerosol Inhaler 1 puff INHALATION BID RF: 0 sucralfate 1 gram Tablet 1 g PO AC RF: 0 docusate sodium 100 mg Capsule 200 mg PO BID RF: 0 methocarbamol 500 mg Tablet 500 mg PO BID PRN (Reason: Pain) RF: 0 levalbuterol tartrate [Xopenex HFA] 45 mcg/actuation Hfa Aerosol Inhaler 2 inh INHALATION QID PRN (Reason: sob) RF: 0 Referrals Referrals: Shasta PEREIRA [Primary Care Provider] -
[2021-07-21 00:31] LABS: iSTAT Creatinine 1.2 mg/dl (0.6-1.3); iSTAT Hemoglobin 15.3 g/dl (14.0-18.0); iSTAT Ionized Calcium 1.16 mmol/l (1.12-1.32); iSTAT Potassium 3.7 mmol/L (3.3-5.0)
[2021-07-21 00:43] LABS: Partial Thromboplastin Ratio 0.8; Partial Thromboplastin Time 20.7 Seconds (21.0-31.0)
[2021-07-21 00:51] LABS: Hematocrit (blood only) 43.1 % (42-52); Hemoglobin 14.4 g/dL (14.0-18.0); Mean Corpuscular Hemoglobin 27.9 pg (25-34); Mean Corpuscular Hgb Conc 33.4 g/dL (32-36); Mean Corpuscular Volume 83.5 fL (80-100); Mean Platelet Volume 8.9 fL (7.4-10.4); Platelet Count 283 K/uL (130-400); RDW Coefficient of Variation 14.2 % (11.5-14.5); RDW Standard Deviation 43.5 fL (36.4-46.3); Red Blood Count 5.16 M/uL (4.7-6.1); White Blood Count 5.62 K/uL (4.8-10.8)
[2021-07-21 00:52] LABS: Basophils # (auto) 0.01 K/uL (0-0.2); Basophils % (auto) 0.2 %; Eosinophils # (auto) 0.13 K/uL (0-0.5); Eosinophils % (auto) 2.3 %; Immature Granulocytes # (auto) 0.03 K/uL (0.00-0.02); Immature Granulocytes % (auto) 0.5 %; Lymphocytes # (auto) 1.16 K/uL (1.2-3.4); Lymphocytes % (auto) 20.6 %; Monocytes # (auto) 0.39 K/uL (0.11-0.59); Monocytes % (auto) 6.9 %; Neutrophils % (auto) 69.5 %; Platelet Estimate Normal (Normal)
[2021-07-21 01:02] LABS: Alanine Aminotransferase 29 U/L (12-78); Albumin Level 4.1 gm/dl (3.4-5.0); Alkaline Phosphatase 96 U/L (45-117); Aspartate Aminotransferase 25 U/L (15-37); BUN Creatinine Ratio 15.6 (10-20); Bilirubin,Total 0.3 mg/dl (0.2-1); Blood Urea Nitrogen 22 mg/dl (7-18); Calcium 9.4 mg/dl (8.5-10.1); Carbon Dioxide 28 mmol/L (21-32); Est GFR (African American) 64.2 ml/min; Est GFR (Non-African American) 55.4 ml/min; Globulin 4.2 gm/dl (2.5-4.0); Glucose 193 mg/dl (70-99); Lipase 193 U/L (73-393); Total Protein 8.3 gm/dl (6.4-8.2); Troponin I < 0.015 ng/ml (0-0.045)
[2021-07-21 01:08] LABS: Chloride 107 mmol/L (98-107); Potassium 3.7 mmol/L (3.5-5.1); Sodium 140 mmol/L (136-145)
[2021-07-21] MEDS ORDERED: OPTIRAY 320 125ml IV ONE (01:43)
[2021-07-21] MEDS ORDERED: ACETAMINOPHEN 1,000 MG/100 ML VIAL IV STA (01:58)
--- NOTE | 2021-07-21 05:06 | History & Physical Report ---
Date of Service July 21, 2021 Assessment & Plan (1) Syncope: Plan: Janak Curtis is a 55y/o M who presents for concerns of chest pain and questionable syncopal episode following which he received CPR. Syncope: -uncertain etiology of syncopal episode, but seizure seemingly less likely -no further syncopal episodes at this time -given uncertainty of these episodes ordered CT head -further consideration of EEG if continuing to have these type of episodes Chest pain: -troponin 0.015 with slight increase to 0.016 prior to admission -patient previously seen to have restenosis of coronary arteries during recent catheterization -consult cardiology for additional recommendations/evaluation in the setting of chronic persistent cardiac pain. -reportedly had nerve stimulator place several years ago which helped control the pain for some time, but as this was done in [place] he has not had opportunity to have battery replaced. -Echo in AM, repeat troponin @ 0900 Abdominal pain: -uncertain etiology of abdominal pain -ordered CT abdomen/pelvis Diet: heart healthy/carb consistent CODE STATUS: Full code DVT prophylaxis: (2) Atypical chest pain: (3) S/P coronary artery stent placement: (4) Hypertension: (5) Peptic ulcer disease: (6) Hyperlipidemia: (7) Angina pectoris: History of Present Illness Primary Care Provider: [facility] Janak Curtis is a 55y/o M who presents for concerns of chest pain and questionable syncopal episode following which he received CPR. Yesterday evening he was sitting watching the [employer] football game when he noticed that he continued to have chest pain. Once the game ended he noted that his chest pain worsened to the point that he needed fresh air and went to the window. He felt like the pain did not improve after being at the window and he then subsequently does not recall anything. According to the EMS, he received chest compressions prior to their arrival for concern of asystole but reportedly had a pulse. Others around him questioned if it was a seizure but he had no seizure-like activity. He denies any specific history of seizures, and had no bladder or bowel incontinence. Has a long-standing history of atypical chest pains, with recent catheterization in September of 2020. Additionally, reports that he has been unable to tolerate eating or drinking since the 09 of July. Usually associated with significant nausea/vomiting, as well as abdominal pain and decreased bowel movements. Allergies Allergy/AdvReac Type Severity Reaction Status Date / Time lisinopril Allergy Severe ANAPHYLAXIS Verified 01/25/21 18:59 ibuprofen Allergy Intermediate HIVES Verified 01/25/21 18:59 morphine Allergy Intermediate HIVES Verified 01/25/21 18:59 capsaicin Allergy Unknown . Verified 01/25/21 18:59 phenytoin Allergy Unknown unk Verified 01/25/21 18:59 Home Medications Medication Instructions Recorded Confirmed Type allopurinol 100 mg tablet 100 mg PO QAM 09/23/20 07/21/21 History amlodipine 5 mg tablet 5 mg PO QAM 09/23/20 07/21/21 History aspirin 81 mg tablet,delayed 81 mg PO QAM 09/23/20 07/21/21 History release calcium carbonate 600 mg (1,500 2 tab PO BID 09/23/20 07/21/21 History mg)-vitamin D3 200 unit tablet finasteride 5 mg tablet 5 mg PO QAM 09/23/20 07/21/21 History metoprolol tartrate 100 mg tablet 100 mg PO BID 09/23/20 07/21/21 History rosuvastatin 20 mg tablet 20 mg PO QPM 09/23/20 07/21/21 History valsartan 80 mg tablet 80 mg PO QAM 09/23/20 07/21/21 History levalbuterol tartrate 45 2 inh INHALATION QID PRN 01/25/21 07/21/21 History mcg/actuation aerosol inhaler (Xopenex HFA) ciclesonide 160 mcg/actuation 1 puff INHALATION BID 07/21/21 07/21/21 History aerosol inhaler (Alvesco) docusate sodium 100 mg capsule 200 mg PO BID 07/21/21 07/21/21 History sucralfate 1 gram tablet 1 g PO AC 07/21/21 07/21/21 History meclizine 12.5 mg tablet 12.5 mg PO TID PRN #30 tab 07/24/21 Rx pantoprazole 20 mg tablet,delayed 40 mg PO BID #0 tab 07/24/21 07/21/21 Rx release polyethylene glycol 3350 17 gram 17 g PO DAILY #1 btl 07/24/21 Rx oral powder packet (Miralax) tamsulosin 0.4 mg capsule 0.4 mg PO QAM #30 cap 07/24/21 Rx Past Med/Surg History Medical History Asthma Bowel obstruction Depression DM type 2 (diabetes mellitus, type 2) Head injury History of CVA (cerebrovascular accident) Hx SBO Hyperlipidemia Hypertension Iron deficiency anemia Peptic ulcer disease Sarcoidosis Skin cancer Surgical History H/O exploratory laparotomy "05/31/2015 with lysis of adhesions, release of bowel obstruction, repair of incisional hernia" H/O ventral hernia repair History of back surgery S/P cardiac cath S/P coronary artery stent placement (05/07/13) "2000" Social History Smoking Status: Former smoker Hx Alcohol Use: No Hx Substance Use: No Preferred Language: Icelandic Communication Ability: Effective Newspaper Reporter Required: No Beliefs That Will Affect Care: None Current Living Situation: Other Current Living Situation Comment: senior care Feels Safe at Home: Yes Assistive Devices: None Review of Systems Review of Systems: All systems reviewed & are unremarkable except as noted in HPI & below Physical Exam Constitutional: WD/WN, vitals as above Eyes: PERRL, conjunctivae normal, anicteric sclerae Respiratory: normal respiratory effort, lungs clear to auscultation Auscultation: no crackles, no rales, no rhonchi and no wheezes Cardiovascular: Rate/Rhythm: regular rate and regular rhythm Heart Sounds: no gallop, no murmur and no cardiac rub Vessels: normal peripheral pulses; no JVD Extremities: no edema Gastrointestinal (Abdomen): Inspection/Auscultation: normal bowel sounds; abdomen not distended Percussion/Palpation: + abdomen tender and abdomen soft; no guarding Musculoskeletal: no cyanosis or clubbing, extremities motor strength 5/5 Skin: no rashes, warm and dry Neurologic: PERRL, EOMI, accommodation nl, no face palsy, no dysarthria CN's II-XI intact bilaterally and moves all extremities Psychiatric: Orientation: alert and oriented x 3 Results & Data Results & Data ([facility]) Vital Signs (Past 12 Hours) Vital Signs Pulse Resp BP Pulse Ox 07/21/21 04:30 77 17 129/86 94 07/21/21 03:00 69 17 151/89 H 98 07/21/21 02:30 80 18 139/86 98 07/21/21 00:45 73 19 155/90 H 100 07/20/21 23:57 71 22 155/104 H 100 Laboratory Results 07/21/21 07/21/21 07/21/21 Range/Units 04:05 04:05 02:52 WBC (4.8-10.8) K/uL RBC (4.7-6.1) M/uL Hgb (14.0-18.0) g/dL POC Hgb (14.0-18.0) g/dl Hct (42-52) % POC Hct (42-52) % MCV (80-100) fL MCH (25-34) pg MCHC (32-36) g/dL RDW Std Deviation (36.4-46.3) fL RDW Coeff of Eliana (11.5-14.5) % Plt Count (130-400) K/uL MPV (7.4-10.4) fL Immature Gran % (Auto) % Neut % (Auto) % Lymph % (Auto) % Mchenry % (Auto) % Eos % (Auto) % Baso % (Auto) % Neut # (Auto) (1.4-6.5) K/uL Lymph # (Auto) (1.2-3.4) K/uL Mchenry # (Auto) (0.11-0.59) K/uL Eos # (Auto) (0-0.5) K/uL Baso # (Auto) (0-0.2) K/uL Immature Gran # (Auto) (0.00-0.02) K/uL Platelet Estimate (Normal) APTT (21.0-31.0) Seconds PTT Ratio POC Sodium (135-144) mmol/L Sodium (136-145) mmol/L POC Potassium (3.3-5.0) mmol/L Potassium (3.5-5.1) mmol/L POC Chloride (101-112) mmol/L Chloride (98-107) mmol/L Carbon Dioxide (21-32) mmol/L POC Total CO2 (24-31) mmol/L Anion Gap (3-11) POC Anion Gap (16-25) mmol/L POC BUN (7-18) mg/dl BUN (7-18) mg/dl Creatinine (0.6-1.4) mg/dl POC Creatinine (0.6-1.3) mg/dl Est Cr Clr Drug Dosing Est GFR ( Amer) ml/min Est GFR (Non-Af Amer) ml/min BUN/Creatinine Ratio (10-20) Glucose (70-99) mg/dl POC Glucose (other) (70-99) mg/dl Calcium (8.5-10.1) mg/dl POC Ioniz Calcium Nury (1.12-1.32) mmol/l Total Bilirubin (0.2-1) mg/dl AST (15-37) U/L ALT (12-78) U/L Alkaline Phosphatase (45-117) U/L Troponin I 0.016 (0-0.045) ng/ml Total Protein (6.4-8.2) gm/dl Albumin (3.4-5.0) gm/dl Globulin (2.5-4.0) gm/dl Albumin/Globulin Ratio (0.9-2) Lipase (73-393) U/L Specimen Hemolysis COVID-19 Eval Order Covid19 at [facility] SARS-CoV-2 (PCR) Pending 07/21/21 07/21/21 07/21/21 Range/Units 00:18 00:10 00:10 WBC (4.8-10.8) K/uL RBC (4.7-6.1) M/uL Hgb (14.0-18.0) g/dL POC Hgb 15.3 (14.0-18.0) g/dl Hct (42-52) % POC Hct 45 (42-52) % MCV (80-100) fL MCH (25-34) pg MCHC (32-36) g/dL RDW Std Deviation (36.4-46.3) fL RDW Coeff of Eliana (11.5-14.5) % Plt Count (130-400) K/uL MPV (7.4-10.4) fL Immature Gran % (Auto) % Neut % (Auto) % Lymph % (Auto) % Mchenry % (Auto) % Eos % (Auto) % Baso % (Auto) % Neut # (Auto) (1.4-6.5) K/uL Lymph # (Auto) (1.2-3.4) K/uL Mchenry # (Auto) (0.11-0.59) K/uL Eos # (Auto) (0-0.5) K/uL Baso # (Auto) (0-0.2) K/uL Immature Gran # (Auto) (0.00-0.02) K/uL Platelet Estimate (Normal) APTT 20.7 L (21.0-31.0) Seconds PTT Ratio 0.8 POC Sodium 141 (135-144) mmol/L Sodium 140 (136-145) mmol/L POC Potassium 3.7 (3.3-5.0) mmol/L Potassium 3.7 (3.5-5.1) mmol/L POC Chloride 104 (101-112) mmol/L Chloride 107 (98-107) mmol/L Carbon Dioxide 28 (21-32) mmol/L POC Total CO2 22 L (24-31) mmol/L Anion Gap 6.0 (3-11) POC Anion Gap 20.0 (16-25) mmol/L POC BUN 23 H (7-18) mg/dl BUN 22 H (7-18) mg/dl Creatinine 1.40 (0.6-1.4) mg/dl POC Creatinine 1.2 (0.6-1.3) mg/dl Est Cr Clr Drug Dosing Not Reportable Est GFR ( Amer) 64.2 ml/min Est GFR (Non-Af Amer) 55.4 ml/min BUN/Creatinine Ratio 15.6 (10-20) Glucose 193 H (70-99) mg/dl POC Glucose (other) 191 H (70-99) mg/dl Calcium 9.4 (8.5-10.1) mg/dl POC Ioniz Calcium Nury 1.16 (1.12-1.32) mmol/l Total Bilirubin 0.3 (0.2-1) mg/dl AST 25 (15-37) U/L ALT 29 (12-78) U/L Alkaline Phosphatase 96 (45-117) U/L Troponin I < 0.015 (0-0.045) ng/ml Total Protein 8.3 H (6.4-8.2) gm/dl Albumin 4.1 (3.4-5.0) gm/dl Globulin 4.2 H (2.5-4.0) gm/dl Albumin/Globulin Ratio 1.0 (0.9-2) Lipase 193 (73-393) U/L Specimen Hemolysis COVID-19 Eval Order SARS-CoV-2 (PCR) 07/21/21 Range/Units 00:10 WBC 5.62 (4.8-10.8) K/uL RBC 5.16 (4.7-6.1) M/uL Hgb 14.4 (14.0-18.0) g/dL POC Hgb (14.0-18.0) g/dl Hct 43.1 (42-52) % POC Hct (42-52) % MCV 83.5 (80-100) fL MCH 27.9 (25-34) pg MCHC 33.4 (32-36) g/dL RDW Std Deviation 43.5 (36.4-46.3) fL RDW Coeff of Eliana 14.2 (11.5-14.5) % Plt Count 283 (130-400) K/uL MPV 8.9 (7.4-10.4) fL Immature Gran % (Auto) 0.5 % Neut % (Auto) 69.5 % Lymph % (Auto) 20.6 % Mchenry % (Auto) 6.9 % Eos % (Auto) 2.3 % Baso % (Auto) 0.2 % Neut # (Auto) 3.90 (1.4-6.5) K/uL Lymph # (Auto) 1.16 L (1.2-3.4) K/uL Mchenry # (Auto) 0.39 (0.11-0.59) K/uL Eos # (Auto) 0.13 (0-0.5) K/uL Baso # (Auto) 0.01 (0-0.2) K/uL Immature Gran # (Auto) 0.03 H (0.00-0.02) K/uL Platelet Estimate Normal (Normal) APTT (21.0-31.0) Seconds PTT Ratio POC Sodium (135-144) mmol/L Sodium (136-145) mmol/L POC Potassium (3.3-5.0) mmol/L Potassium (3.5-5.1) mmol/L POC Chloride (101-112) mmol/L Chloride (98-107) mmol/L Carbon Dioxide (21-32) mmol/L POC Total CO2 (24-31) mmol/L Anion Gap (3-11) POC Anion Gap (16-25) mmol/L POC BUN (7-18) mg/dl BUN (7-18) mg/dl Creatinine (0.6-1.4) mg/dl POC Creatinine (0.6-1.3) mg/dl Est Cr Clr Drug Dosing Est GFR ( Amer) ml/min Est GFR (Non-Af Amer) ml/min BUN/Creatinine Ratio (10-20) Glucose (70-99) mg/dl POC Glucose (other) (70-99) mg/dl Calcium (8.5-10.1) mg/dl POC Ioniz Calcium Nury (1.12-1.32) mmol/l Total Bilirubin (0.2-1) mg/dl AST (15-37) U/L ALT (12-78) U/L Alkaline Phosphatase (45-117) U/L Troponin I (0-0.045) ng/ml Total Protein (6.4-8.2) gm/dl Albumin (3.4-5.0) gm/dl Globulin (2.5-4.0) gm/dl Albumin/Globulin Ratio (0.9-2) Lipase (73-393) U/L Specimen Hemolysis COVID-19 Eval Order SARS-CoV-2 (PCR) Diagnostic Findings CT CHEST Without Contrast: Aortic wall appears normal without thickening or high attenuation CTA CHEST: Direct comparison made to prior study of January 25, 2021. Heart is normal in size. Thoracic aorta appears normal. There is no pulmonary embolism. There is a large hiatal hernia. Mediastinal lymph nodes are not enlarged. Central airways appear normal. Lungs are clear without focal consolidation. There is a neuro stimulating device in the thoracic spine tip is at the level of T5. Impression: No acute findings. No pulmonary embolism Radiologist: Tima Velasquez MD Medications Administered Home Medication List Medication Instructions Recorded allopurinol 100 mg tablet 100 mg PO QAM 09/23/20 amlodipine 5 mg tablet 5 mg PO QAM 09/23/20 aspirin 81 mg tablet,delayed 81 mg PO QAM 09/23/20 release calcium carbonate 600 mg (1,500 2 tab PO BID 09/23/20 mg)-vitamin D3 200 unit tablet finasteride 5 mg tablet 5 mg PO QAM 09/23/20 glipizide 5 mg tablet 5 mg PO QAM 09/23/20 hydrochlorothiazide 25 mg tablet 25 mg PO QAM 09/23/20 insulin regular human 100 unit/mL 0 unit SUBCUT UD 09/23/20 injection solution (Novolin R Regular U-100 Insulin) metoprolol tartrate 100 mg tablet 100 mg PO BID 09/23/20 pantoprazole 20 mg tablet,delayed 20 mg PO QAM 09/23/20 release rosuvastatin 20 mg tablet 20 mg PO QPM 09/23/20 valsartan 80 mg tablet 80 mg PO QAM 09/23/20 levalbuterol tartrate 45 2 inh INHALATION QID PRN 01/25/21 mcg/actuation aerosol inhaler (Xopenex HFA) methocarbamol 500 mg tablet 500 mg PO BID PRN 01/25/21 ciclesonide 160 mcg/actuation 1 puff INHALATION BID 07/21/21 aerosol inhaler (Alvesco) docusate sodium 100 mg capsule 200 mg PO BID 07/21/21 sucralfate 1 gram tablet 1 g PO AC 07/21/21 Supervising Physician Co-Signing Physician Notes Attending addendum: I have physically seen this patient, have supervised the medical residents activities, and agree with the H&P unless as otherwise noted. Assessment and Plan: Syncope- The patient will be admitted to telemetry for serial cardiac enzymes, serial E KG's, cardiac rhythm monitoring and a 2-D echocardiogram with Dopplers. Order CT head, and may need MRI brain and EEG Chest pain- The patient will be admitted to telemetry for serial cardiac enzymes, serial EKG's, cardiac rhythm monitoring and a 2-D echocardiogram with Dopplers. Consult cardiology Reports nerve stimulator placement to aid control chest pain while he was in [place] Remaining orders and notations as noted Resident Activity Tracking Resident Involvement: Resident Care Provided Care Provided: Adult Hospital Medicine
--- NOTE | 2021-07-21 07:13 | CT Scan Report ---
HEAD CT NONCONTRAST CT DOSE: HISTORY: syncope TECHNIQUE: Multiaxial CT images of the head were performed without the use of intravenous contrast. A utomated exposure control was utilized for this study. A dose lowering technique was utilized adheri ng to the principles of ALARA. Comparison: None. Findings: The paranasal sinuses and mastoid air cells are clear. The calvarium and skull base are int act. The ventricles and sulci are within normal limits. There is no mass, hematoma, midline shift, or acute infarct. Impression: No acute intracranial abnormality. ACT 112: Negative or not required by law. Electronically signed by: Ortega Munoz M.D. 07/21/2021 7:12 AM
--- NOTE | 2021-07-21 07:24 | CT Scan Report ---
CHEST CTA for AORTIC DISSECTION CT DOSE: 703.28 mGy.cm HISTORY: severe mid chest and back pain, syncope TECHNIQUE: Multiaxial CT images of the chest were performed both before and after the intravenous adm inistration of contrast to evaluate the aorta. Maximal intensity projection images were also obtained . A dose lowering technique was utilized adhering to the principles of ALARA. COMPARISON STUDY: Chest CTA 01/25/2021. FINDINGS: Noncontrast imaging through the chest shows no evidence for an intramural hematoma within t he thoracic aorta. The thoracic aorta is normal in course and caliber with no evidence for dissection . No pleural or pericardial effusions. The heart is borderline enlarged. In the central pulmonary art eries are patent. A 2.4 cm hypodense lesion within the left hepatic lobe demonstrating discontinuous peripheral nodular enhancement. This is consistent with a hemangioma. There are 2 additional subcenti meter hypervascular foci within the left hepatic lobe which are technically too small to characterize but may also represent flash filling hemangiomas. The spleen and visualized adrenal glands are unrem arkable. There is a large hiatus hernia, unchanged. Mild thickening of the distal esophagus is also u nchanged. No mediastinal or hilar lymphadenopathy. Spinal stimulator leads are again noted. No fractu res within the visualized osseous structures. No pneumothorax. The central airways are patent. There are few scattered tree-in-bud nodular opacities seen within the lungs most pronounced within the righ t middle lobe and lingula. 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 IMPRESSION: 1. No evidence for an aortic dissection. 2. Large hiatus hernia, unchanged. 3. Mild thickening of the distal esophagus, unchanged. 4. A few scattered chronic tree-in-bud nodular opacities. No new focal lung consolidations. ACT 112: Negative or not required by law. Electronically signed by: Ortega Munoz M.D. 07/21/2021 7:22 AM
--- NOTE | 2021-07-21 07:32 | CT Scan Report ---
CT SCAN OF THE ABDOMEN AND PELVIS WITHOUT IV CONTRAST CLINICAL HISTORY: Generalized abdominal pain. COMPARISON STUDY: Abdominal CT dated 12/02/2020 TECHNIQUE: CT scan of the abdomen and pelvis is performed from the lung bases to the proximal femora. Images are reviewed in the axial, sagittal, and coronal planes. IV contrast was not administered for this examination. Note that the examination was performed in suboptimal fashion without oral and IV contrast. The examination is degraded by motion artifact. A dose lowering technique was utilized adhe ring to the principles of ALARA. CT DOSE: 1805.52 mGy.cm FINDINGS: Lung bases: The heart is mildly enlarged and and without pericardial effusion. The lung bases are olivier ar noting bibasilar scarring/atelectasis. There is a moderate to large hiatal hernia. Wall thickening is noted in the distal esophagus. Liver: The unenhanced liver is enlarged and demonstrates diffusely diminished attenuation consistent with hepatic steatosis. Fatty sparing is seen adjacent to the gallbladder fossa. Focal fat is seen ad jacent to the falciform ligament. There is no intrahepatic biliary ductal dilatation. Gallbladder: Unremarkable. Spleen: Normal in size and attenuation. Pancreas: Unremarkable. Adrenal glands: Unremarkable. Kidneys: The unenhanced kidneys are normal in size and without hydronephrosis. The renal collecting s ystem and ureters are filled with excreted IV contrast. The presence of renal calculi cannot be asses sed. There is no evidence of contour deforming renal mass lesion. Abdominal vasculature: The abdominal aorta is normal in course and caliber. Bowel: There are scattered colonic diverticula without CT evidence of acute diverticulitis. No bowel obstruction is seen. Mild to moderate fecal retention is noted throughout the colon. A duodenal diver ticulum is incidentally noted. The appendix is well-visualized and normal. Peritoneum: There is no intraperitoneal free air or abdominal ascites. A midline surgical scar is not ed with evidence of previous ventral hernia repair. Lymphadenopathy: None. Pelvic viscera: The bladder is filled with excreted IV contrast and grossly unremarkable. The prostat e and seminal vesicles are normal as imaged. There are bilateral fat-containing inguinal hernias. Skeletal structures: No lytic or blastic lesions are seen. An intrathecal device is present in the ri ght gluteal soft tissues. This enters the central canal in the lower thoracic region. IMPRESSION: 1. Suboptimal examination without oral and IV contrast. 2. There are no acute infectious or inflammatory findings in the abdomen or pelvis. 3. Hepatic steatosis. 4. Moderate to large hiatal hernia with wall thickening of the distal esophagus. Correlate clinically for evidence of esophagitis. If warranted this could be further assessed with endoscopy. 5. Additional findings as above. ACT 112: Negative or not required by law. ' Electronically signed by: Freddy Rosado M.D. 07/21/2021 7:31 AM
[2021-07-21] MEDS ORDERED: NITROGLYCERIN SL 0.4 MG/TAB TAB SL PRN (08:00)
[2021-07-21] MEDS ORDERED: MAGNESIUM HYDROXIDE SUSP 30 ML UDC PO PRN (08:00)
[2021-07-21] MEDS ORDERED: MoRPHine SULFATE 2 MG/ML CARP IV PRN (08:00)
[2021-07-21] MEDS ORDERED: ACETAMINOPHEN 325 MG TAB PO PRN (08:00)
[2021-07-21] MEDS ORDERED: POLYETHYLENE (MIRALAX) 17 GM PACK PO PRN (08:00)
[2021-07-21] MEDS ORDERED: LEVALBUTEROL TARTRATE 15 GM HFA.AER.AD INH PRN (08:00)
[2021-07-21] MEDS ORDERED: METHOCARBAMOL 500 MG TABLET PO PRN (08:00)
[2021-07-21] MEDS ORDERED: ONDANSETRON INJ 2 MG/ML 2 ML VIAL IV PRN (08:00)
[2021-07-21] MEDS ORDERED: ALUMINUM/MAGNESIUM SUSP 30 ML UDC PO PRN (08:00)
[2021-07-21] MEDS: SUCRALFATE 1 GM TAB PO SCH ×3 (09:29→16:12)
[2021-07-21] MEDS: METOPROLOL TARTRATE 100 MG TAB PO SCH ×2 (09:30→20:58)
[2021-07-21] MEDS: hydroCHLOROthiazide 25 MG TAB PO SCH (09:30)
[2021-07-21] MEDS: VALSARTAN 80 MG TAB PO SCH (09:30)
[2021-07-21] MEDS: PANTOprazole 40 MG TAB PO SCH (09:30)
[2021-07-21] MEDS: allopurinoL 100 MG TAB PO SCH (09:30)
[2021-07-21] MEDS: DOCUSATE SODIUM 100 MG CAP PO SCH ×2 (09:31→20:57)
[2021-07-21] MEDS: amLODIPine BESYLATE 5 MG TAB PO SCH (09:31)
[2021-07-21] MEDS: ASPIRIN 81 MG ECTAB PO SCH (09:31)
[2021-07-21] MEDS: FINASTERIDE 5 MG TAB PO SCH (09:31)
--- NOTE | 2021-07-21 09:40 | Cardiology Consultation ---
Date of Consultation July 21, 2021 Assessment & Plan (1) Syncope: (2) Atypical chest pain: 1. Syncope: There appears to be no obvious cause for his syncope. An arrhythmia is possible although it sounds as though he was not aware of his surroundings for an extended period of time and without objective cardiac findings that would be unusual if it were an arrhythmia or cardiac event causing syncope. Hypotension is possible although I do not believe that was documented. Some type of monitoring might be prudent, perhaps 30-day monitoring after discharge. I would keep him on the monitor here in the hospital if he is admitted. 2. Chest pain: His chest discomfort is probably not cardiac, the duration is too long without objective findings either by enzymes or electrocardiography. I would pursue other causes. I would not do a stress test. History of Present Illness Reason for Consultation: Chest pain, syncope Attending Physician: Willy Mace History of Present Illness This is a 55-year-old male who has a remote history of stent placement, diabetes mellitus, prior CVA, hypertension, dyslipidemia and ongoing noncardiac chest discomfort. He was evaluated in September 2020 where he had a nuclear treadmill stress test done here September 20, 2020 for chest discomfort which was abnormal and led to a catheterization on September 24, 2020 which showed an LAD mid segment stent with a 40 to 50% restenosis and a jailed first diagonal with a 20 to 30% ostial stenosis but no significant obstructive disease. The chest discomfort was felt to be noncardiac. He now presents with what he describes as chest tightness occurring from around 1:00 or so on July 20, 2021 and continuing until he develop quite severe chest discomfort at around 5 PM as well as shortness of breath. He was in his cell, he got up to walk around and then collapsed and does not remember anything else until he woke up in an ambulance. It is reported that CPR was done although it is also reported that he had a pulse. Evaluation so far includes cardiac enzymes x3 which are negative for injury, an echocardiogram this morning which shows hyperdynamic LV function and monitoring since presentation which shows sinus rhythm and sinus tachycardia. Of note he has been losing a lot of weight, he tells me he lost 25 pounds in 3 weeks however that is not consistent with our measurements here. 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 He describes GI symptoms including nausea and vomiting and not being able to keep food down. Allergies Allergy/AdvReac Type Severity Reaction Status Date / Time lisinopril Allergy Severe ANAPHYLAXIS Verified 01/25/21 18:59 ibuprofen Allergy Intermediate HIVES Verified 01/25/21 18:59 morphine Allergy Intermediate HIVES Verified 01/25/21 18:59 capsaicin Allergy Unknown . Verified 01/25/21 18:59 phenytoin Allergy Unknown unk Verified 01/25/21 18:59 Home Medications Medication Instructions Recorded Confirmed Type allopurinol 100 mg tablet 100 mg PO QAM 09/23/20 07/21/21 History amlodipine 5 mg tablet 5 mg PO QAM 09/23/20 07/21/21 History aspirin 81 mg tablet,delayed 81 mg PO QAM 09/23/20 07/21/21 History release calcium carbonate 600 mg (1,500 2 tab PO BID 09/23/20 07/21/21 History mg)-vitamin D3 200 unit tablet finasteride 5 mg tablet 5 mg PO QAM 09/23/20 07/21/21 History glipizide 5 mg tablet 5 mg PO QAM 09/23/20 07/21/21 History hydrochlorothiazide 25 mg tablet 25 mg PO QAM 09/23/20 07/21/21 History insulin regular human 100 unit/mL 0 unit SUBCUT UD 09/23/20 07/21/21 History injection solution (Novolin R Regular U-100 Insulin) metoprolol tartrate 100 mg tablet 100 mg PO BID 09/23/20 07/21/21 History pantoprazole 20 mg tablet,delayed 20 mg PO QAM 09/23/20 07/21/21 History release rosuvastatin 20 mg tablet 20 mg PO QPM 09/23/20 07/21/21 History valsartan 80 mg tablet 80 mg PO QAM 09/23/20 07/21/21 History levalbuterol tartrate 45 2 inh INHALATION QID PRN 01/25/21 07/21/21 History mcg/actuation aerosol inhaler (Xopenex HFA) methocarbamol 500 mg tablet 500 mg PO BID PRN 01/25/21 07/21/21 History ciclesonide 160 mcg/actuation 1 puff INHALATION BID 07/21/21 07/21/21 History aerosol inhaler (Alvesco) docusate sodium 100 mg capsule 200 mg PO BID 07/21/21 07/21/21 History sucralfate 1 gram tablet 1 g PO AC 07/21/21 07/21/21 History Patient History Medical History Asthma Bowel obstruction Depression DM type 2 (diabetes mellitus, type 2) Head injury History of CVA (cerebrovascular accident) Hx SBO Hyperlipidemia Hypertension Iron deficiency anemia Peptic ulcer disease Sarcoidosis Skin cancer Surgical History H/O exploratory laparotomy "05/31/2015 with lysis of adhesions, release of bowel obstruction, repair of incisional hernia" H/O ventral hernia repair History of back surgery S/P cardiac cath S/P coronary artery stent placement (05/07/13) "2000" Social History Smoking Status: Former smoker Hx Alcohol Use: No Hx Substance Use: No Preferred Language: Swazi Communication Ability: Effective Supercharge Repair Supervisor Required: No Beliefs That Will Affect Care: None Current Living Situation: Other Current Living Situation Comment: halfway Other Information That Helps Us Care for You: No Feels Safe at Home: Yes Safety Concerns: Feels Safe At This Time Assistive Devices: None Review of Systems Review of Systems: All systems reviewed & are unremarkable except as noted in HPI & below Physical Exam Physical Exam: Constitutional: Alert, cooperative and in no distress. HEENT: Unremarkable Neck: No jugular venous distention, carotid pulses are normal and equal bilaterally without bruits. Pulmonary: Clear to auscultation bilaterally. Cardiac: Regular rhythm with no murmur, gallop or rub. Abdomen: Soft, nontender with normal bowel sounds. Extremities: No edema. Distal pulses intact. Neurologic: No focal findings. Gait was not tested. Skin: No rash, ecchymoses or petechiae. Results & Data ([facility]) Vital Signs (Past 12 Hours) Vital Signs Temp Pulse Pulse Resp BP BP Pulse Ox 07/21/21 08:17 36.8 C 74 65 19 157/105 H 98 07/21/21 07:27 86 20 142/97 H 98 07/21/21 06:00 72 23 142/95 H 96 07/21/21 04:30 77 17 129/86 94 10/18/21 03:00 69 17 151/89 H 98 07/21/21 02:30 80 18 139/86 98 07/21/21 00:45 73 19 155/90 H 100 07/20/21 23:57 71 22 155/104 H 100 Pulse Ox 07/21/21 08:17 98 07/21/21 07:27 07/21/21 06:00 07/21/21 04:30 07/21/21 03:00 07/21/21 02:30 07/21/21 00:45 07/20/21 23:57 Laboratory Results Cardiac Enzymes 07/21/21 07/21/21 Range/Units 00:10 02:52 AST 25 (15-37) U/L Troponin I < 0.015 0.016 (0-0.045) ng/ml Coagulation 07/21/21 Range/Units 00:10 APTT 20.7 L (21.0-31.0) Seconds CBC 07/21/21 Range/Units 00:10 WBC 5.62 (4.8-10.8) K/uL RBC 5.16 (4.7-6.1) M/uL Hgb 14.4 (14.0-18.0) g/dL Hct 43.1 (42-52) % Plt Count 283 (130-400) K/uL Neut # (Auto) 3.90 (1.4-6.5) K/uL Lymph # (Auto) 1.16 L (1.2-3.4) K/uL [place] # (Auto) 0.39 (0.11-0.59) K/uL Eos # (Auto) 0.13 (0-0.5) K/uL Baso # (Auto) 0.01 (0-0.2) K/uL Comprehensive Metabolic Panel 07/21/21 Range/Units 00:10 Sodium 140 (136-145) mmol/L Potassium 3.7 (3.5-5.1) mmol/L Chloride 107 (98-107) mmol/L Carbon Dioxide 28 (21-32) mmol/L BUN 22 H (7-18) mg/dl Creatinine 1.40 (0.6-1.4) mg/dl Glucose 193 H (70-99) mg/dl Calcium 9.4 (8.5-10.1) mg/dl AST 25 (15-37) U/L ALT 29 (12-78) U/L Alkaline Phosphatase 96 (45-117) U/L Total Protein 8.3 H (6.4-8.2) gm/dl Albumin 4.1 (3.4-5.0) gm/dl Intake and Output 07/20/21 07/21/21 07/21/21 22:59 06:59 14:59 Intake Total 100 / 100 Balance 100 / 100 Intake: IV 100 / 100 Acetaminophen 1,000 mg In 100 100 / 100 ml @ 400 mls/hr IV NOW STA Rx#: [id number] Other: Weight 91.2 kg 91.2 kg Weight Measurement Method [facility] Weight 07/22/21 06:59 Weight 91.2 kg Diagnostic Findings Telemetry: Sinus rhythm and sinus tachycardia Echocardiogram: On preliminary review hyperdynamic function with no wall motion abnormalities Echocardiogram: Sinus rhythm with diffuse T wave inversion, similar to prior PG Care Time/CCT Total # of Minutes Spent Total Time Spent with Patient: Total time spent is greater than 50% in coordination of care (as documented) at patient's floor/unit and/or counseling patient: Coding Level of Care Code 67381 Inpt Consult Level 4 Diagnoses Syncope R55 Atypical chest pain R07.89
[2021-07-21] MEDS: FAMOTIDINE 20 MG in SYRINGE 3 ML IV SCH ×2 (11:41→21:08)
--- NOTE | 2021-07-21 12:02 | Communication Note ---
Date of Service: July 21, 2021 Received a consult request from Dr. Mace (hospitalist) to evaluation pt for non cardiac source of chest pain symptoms. Reviewed pt's chart. Noted CT signs of distal esophagus thickening with hiatal hernia. Outpt chart showed pt just had EGD/colonoscopy on 05/24 for anemia. EGD showed signs of hiatal hernia w esophagitis. Would defer repeat EGD evaluation and recommend management of esophagitis with PPI PO BID, and Carafate 1g QID x 1 month both of which he is already on. Soft diet as tolerated. Requested for Dr. Mace to cancel GI consult and he is agreeable. Pls recall GI prn
--- NOTE | 2021-07-21 13:37 | XCELERA ---
[id number]
[2021-07-21] MEDS ORDERED: oxyCODONE HCL IR 5 MG TAB (IMMEDIATE RELEASE) PO STA (15:50)
[2021-07-21] MEDS ORDERED: ALUMINUM/MAGNESIUM SUSP 18 ML, LIDOCAINE VISCOUS 2% SOLN 6 ML, BARCODE IDENTIFIER 1 EA PO ONE (15:50)
[2021-07-21 16:46] LABS: C Reactive Protein 0.54 mg/dl (0-0.29); Troponin I < 0.015 ng/ml (0-0.045)
--- NOTE | 2021-07-21 18:00 | XRay Report ---
XR KUB/Abdomen 1 view CLINICAL HISTORY: severe abd pain; assess fecal load TECHNIQUE: 1 view of the abdomen was obtained. Comparison: None available at the time of this dictation. FINDINGS: Lung bases are unremarkable. The osseous structures are grossly unremarkable. The bowel gas pattern i s nonobstructive. A moderate amount of stool is noted within the large bowel. IMPRESSION: Moderate stool burden without evidence of obstruction. ACT 112: Negative or not required by law. Electronically signed by: Bakari Novak M.D. 07/21/2021 5:59 PM
[2021-07-21] MEDS ORDERED: bisacodyL 5 MG TABEC PO ONE (19:19)
[2021-07-21] MEDS ORDERED: SODIUM CHLORIDE 0.9% 1000ML 1,000 ML IV SCH (19:30)
[2021-07-21] MEDS: POLYETHYLENE (MIRALAX) 17 GM PACK PO SCH (20:58)
[2021-07-21] MEDS: ROSUVASTATIN CALCIUM 20 MG TAB PO SCH (20:59)
--- NOTE | 2021-07-21 21:15 | Communication Note ---
Date of Service: July 21, 2021 Pt seen/examined, chart reviewed. Pt had abdominal pain this afternoon. No chest pain. Abdominal pain was lower abdomen. Pt states had tiny bowel movement this am; firm/hard. Last BM prior to that? No further chest pain. Sed rate minimally elevated. CRP minimally elevated. Repeat troponin this afternoon negative. KUB x-ray ordered to assess stool load due to ongoing pain. My reading - moderate stool, especially ascending/transverse colon. Exam - gen - NAD neck - no JVD heart - RRR, s1 s2 lungs - CTA b/l abd - soft, scant tenderness lower abdomen (below umbilicus), BS+, nondistended ext - no edema A/P: 1. [facility]. Etiology? Pt c/o lightheadedness during the visit - check orthostatics. Will give 1 L NS tonight. Tele thus far unremarkable. Echo noted. 2. s/p CPR - uncertain rhythm; see cardiology note. Trops negative. No signs of ACS or dysrhythmia but consider 30-day monitor at discharge to r/o arrhythmia. 3. abdominal pain - EGD confirmed esophagitis this summer; esophageal thickening on CT overnight. PPI bid. carafate. For constipation - dulcolax + 3 doses of miralax tonight. Willy Mace MD
[2021-07-22] MEDS: POLYETHYLENE (MIRALAX) 17 GM PACK PO SCH (00:02)
[2021-07-22 07:09] LABS: Basophils # (auto) 0.01 K/uL (0-0.2); Basophils % (auto) 0.3 %; Eosinophils # (auto) 0.17 K/uL (0-0.5); Eosinophils % (auto) 5.4 %; Hematocrit (blood only) 39.3 % (42-52); Hemoglobin 12.6 g/dL (14.0-18.0); Lymphocytes # (auto) 1.38 K/uL (1.2-3.4); Lymphocytes % (auto) 44.2 %; Mean Corpuscular Hemoglobin 26.9 pg (25-34); Mean Corpuscular Hgb Conc 32.1 g/dL (32-36); Mean Corpuscular Volume 83.8 fL (80-100); Mean Platelet Volume 8.3 fL (7.4-10.4); Monocytes # (auto) 0.28 K/uL (0.11-0.59); Neutrophils # (auto) 1.28 K/uL (1.4-6.5); Neutrophils % (auto) 41.1 %; Platelet Count 266 K/uL (130-400); RDW Coefficient of Variation 14.7 % (11.5-14.5); RDW Standard Deviation 45.7 fL (36.4-46.3); Red Blood Count 4.69 M/uL (4.7-6.1); White Blood Count 3.12 K/uL (4.8-10.8)
[2021-07-22 07:48] LABS: Albumin Level 3.5 gm/dl (3.4-5.0); BUN Creatinine Ratio 12.4 (10-20); Bilirubin,Total 0.5 mg/dl (0.2-1); Calcium 8.9 mg/dl (8.5-10.1); Creatinine Clr Calc Pharmacy 63.2 ml/min; Est GFR (African American) 70.9 ml/min; Est GFR (Non-African American) 61.1 ml/min; Globulin 3.5 gm/dl (2.5-4.0); Magnesium 1.7 mg/dl (1.8-2.4); Phosphorus 2.6 mg/dl (2.5-4.9); Potassium 4.4 mmol/L (3.5-5.1)
[2021-07-22] MEDS: METOPROLOL TARTRATE 100 MG TAB PO SCH ×2 (07:59→22:09)
[2021-07-22] MEDS: DOCUSATE SODIUM 100 MG CAP PO SCH ×2 (08:30→22:53)
[2021-07-22] MEDS: allopurinoL 100 MG TAB PO SCH (08:31)
[2021-07-22] MEDS: VALSARTAN 80 MG TAB PO SCH (08:31)
[2021-07-22] MEDS: SUCRALFATE 1 GM TAB PO SCH ×3 (08:31→16:18)
[2021-07-22] MEDS: hydroCHLOROthiazide 25 MG TAB PO SCH (08:31)
[2021-07-22] MEDS: ASPIRIN 81 MG ECTAB PO SCH (08:32)
[2021-07-22] MEDS: amLODIPine BESYLATE 5 MG TAB PO SCH (08:32)
[2021-07-22] MEDS: PANTOprazole 40 MG TAB PO SCH (08:33)
[2021-07-22] MEDS: FINASTERIDE 5 MG TAB PO SCH (08:33)
[2021-07-22 08:35] LABS: Estimated Average Glucose 154 mg/dl
[2021-07-22] MEDS: FAMOTIDINE 20 MG in SYRINGE 3 ML IV SCH ×2 (08:45→22:52)
--- NOTE | 2021-07-22 11:59 | Electrocardiogram Report ---
Test Reason : Blood Pressure : / mmHG Vent. Rate : 085 BPM Atrial Rate : 085 BPM P-R Int : 148 ms QRS Dur : 116 ms QT Int : 416 ms P-R-T Axes : 056 006 -42 degrees QTc Int : 495 ms Normal sinus rhythm Possible Left atrial enlargement Left ventricular hypertrophy with QRS widening Prolonged QT Abnormal ECG When compared with ECG of 25-JAN-2021 17:50, No significant change was found Confirmed by Abhishek Caro ([id number]) on 07/22/2021 11:59:02 AM Referred By: [facility] Confirmed By:Abhishek Caro
[2021-07-22] MEDS: MAGNESIUM SULFATE / D5W 1 GM/100 ML BAG IV SCH ×2 (12:29→12:30)
--- NOTE | 2021-07-22 12:52 | Cardiology Progress Note ---
Date of Service July 22, 2021 Assessment & Plan (1) Syncope: (2) Atypical chest pain: Plan: 1. Syncope: There appears to be no obvious cause for his syncope. An arrhythmia is possible although it sounds as though he was not aware of his surroundings for an extended period of time and without objective cardiac findings or other findings of ischemia such as liver, kidney or brain that would be unusual if it were an arrhythmia or cardiac event causing prolonged unconsciousness. Hypotension is possible although I do not believe that was documented. Orthostatic vital signs were done here and are negative although he has been treated already. Some type of cardiac monitoring might be prudent upon discharge, perhaps 30-day monitoring after discharge. I would keep him on the monitor here in the hospital. 2. Chest pain: His chest discomfort is probably not cardiac, and it has not recurred. The duration was too long without objective findings either by enzymes or electrocardiography to suggest ischemia. I would pursue other causes. I would not do a stress test. Admission and Anticipated Discharge Date Admission Date: July 21, 2021 Subjective I had to wake him up from his sleep today, he is in bed. He tells me he has lightheadedness when he rolls around in bed or when he sits up. He denies syncope. Physical Exam Physical Exam: Constitutional: Alert, cooperative and in no distress. HEENT: Unremarkable Neck: No jugular venous distention, carotid pulses are normal and equal bilaterally without bruits. Pulmonary: Clear to auscultation bilaterally. Cardiac: Regular rhythm with no murmur, gallop or rub. Abdomen: Soft, nontender with normal bowel sounds. Extremities: No edema. Distal pulses intact. Neurologic: No focal findings. Gait was not tested. Skin: No rash, ecchymoses or petechiae. Results & Data ([facility]) Vital Signs (Past 12 Hours) Vital Signs Temp Pulse Resp BP Pulse Ox 07/22/21 12:01 36.7 C 50 L 18 132/81 99 07/22/21 07:35 36.6 C 18 98 Laboratory Results Cardiac Enzymes 07/21/21 07/22/21 Range/Units 16:03 06:52 AST 16 (15-37) U/L Troponin I < 0.015 (0-0.045) ng/ml CBC 07/22/21 Range/Units 06:52 WBC 3.12 L (4.8-10.8) K/uL RBC 4.69 L (4.7-6.1) M/uL Hgb 12.6 L (14.0-18.0) g/dL Hct 39.3 L (42-52) % Plt Count 266 (130-400) K/uL Neut # (Auto) 1.28 L (1.4-6.5) K/uL Lymph # (Auto) 1.38 (1.2-3.4) K/uL [place] # (Auto) 0.28 (0.11-0.59) K/uL Eos # (Auto) 0.17 (0-0.5) K/uL Baso # (Auto) 0.01 (0-0.2) K/uL Comprehensive Metabolic Panel 07/22/21 Range/Units 06:52 Sodium 137 (136-145) mmol/L Potassium 4.4 D (3.5-5.1) mmol/L Chloride 106 (98-107) mmol/L Carbon Dioxide 26 (21-32) mmol/L BUN 16 (7-18) mg/dl Creatinine 1.29 (0.6-1.4) mg/dl Glucose 118 H (70-99) mg/dl Calcium 8.9 (8.5-10.1) mg/dl AST 16 (15-37) U/L ALT 22 (12-78) U/L Alkaline Phosphatase 59 (45-117) U/L Total Protein 7.0 (6.4-8.2) gm/dl Albumin 3.5 (3.4-5.0) gm/dl Intake and Output 07/21/21 07/22/21 07/22/21 22:59 06:59 14:59 Intake Total 240 / 240 1000.833 / 1000.833 Output Total 400 / 400 Balance -160 / -160 1000.833 / 1000.833 Intake: IV 1000.833 / 1000.833 Magnesium Sulfate / D5w 1 gm In 0.833 / 0.833 100 ml @ 50 mls/hr IV Q2H LIN Rx#:[id number] Sodium Chloride 0.9% 1000ML 1, 1000 / 1000 000 ml @ 80 mls/hr IV .[id number] LIN Rx#:[id number] Oral 240 / 240 Output: Urine 400 / 400 Other: Weight 84.8 kg Weight Measurement Method Built in [facility] Diagnostic Findings Telemetry: Sinus rhythm rates generally in the 50s to 70s. PG Care Time/CCT Total # of Minutes Spent Total Time Spent with Patient: Total time spent is greater than 50% in coordination of care (as documented) at patient's floor/unit and/or counseling patient: Coding Level of Care Code 78922 Subseq Hosp Care Lvl 2 Diagnoses Syncope R55 Atypical chest pain R07.89
[2021-07-22] MEDS ORDERED: LACTULOSE SYRUP 30 GM/45 ML UDP PO STA (14:27)
[2021-07-22] MEDS ORDERED: TAMSULOSIN HCL 0.4 MG CAP PO ONE (14:30)
[2021-07-22] MEDS: MECLIZINE 12.5 MG TAB PO SCH ×2 (16:17→22:08)
[2021-07-22 17:18] LABS: Appearance Urine Clear (Clear); Bilirubin Urine Negative (Negative); Blood Urine Negative (Negative); Color Urine Yellow; Glucose Urine UA Negative (Negative); Ketones Urine Negative (Negative); Leukocyte Esterase Urine Negative (Negative); Nitrite Urine Negative (Negative); Protein Urine Negative (Negative); Specific Gravity Urine 1.014 (1.000-1.030); Urobilinogen Urine Negative (Negative); pH Urine 6.5 (4.5-7.5)
--- NOTE | 2021-07-22 21:16 | Hospitalist Progress Note ---
Date of Service July 22, 2021 Assessment & Plan (1) Atypical chest pain: Plan: despite symptoms his troponins were neg, echo without WMA, and EKGs wnl seen by cardiology - symptoms felt to not be ischemic in origin 2nd to esophagitis? (CTA Chest with esophageal thickening) CTA neg for PE (2) Syncope: Plan: etiology?? orthostatic BPs wnl 2nd vertigo? other? consider MRI brain (3) CAD (coronary artery disease): Plan: with prior stent see #1 above appreciate cardiology consultation cont asa, metoprolol BID, statin (4) Hypertension: Plan: most readings acceptable cont current meds (5) Hyperlipidemia: Plan: statin (6) DM type 2 (diabetes mellitus, type 2): Plan: a1c 7% DM diet controlled (7) BPH (benign prostatic hyperplasia): Plan: add flomax to finasteride needs urology f/u for this (8) Vertigo: Plan: etiology? present x 3 months consider MRI brain consider vestibular eval by PT meclizine BID ordered (9) Abdominal pain: Plan: suspect constipation +/- esophagitis mild only eating fine (10) Esophagitis: Plan: EGD -confirmed (EGD done [facility] this summer) PPI twice daily carafate (11) Hypomagnesemia: Plan: replace IV mag (12) Constipation: Plan: lactulose 30gm x 1 now needs bowel maintenance thereafter Admission and Anticipated Discharge Date Admission Date: July 21, 2021 Subjective pt still with constipation despite multiple doses of miralax yesterday/today as well as dulcolax also with - 1. vertigo - positional - present for "months"; states he was given something for this at the [facility], did help some 2. difficulty starting urinary stream, nocturia (5-6x's each night), frequency during the day, incomplete bladder emptying (PVR today >150cc) no further chest pain abd pain - mild - lower abdomen he is eating well despite the above complaints Review of Systems Review of Systems: gen - no fever/chills cv - no chest pain, no orthopnea pulm - no cough - dysuria in addition to the HPI complaints Physical Exam Physical Exam: gen - NAD eyes - no nystagmus, EOMI neck - no JVD mouth - MMM heart - RRR, s1 s2, no murmur lungs - CTA b/l abd - soft, NT, ND, BS+ ext - no edema Results & Data Results & Data ([facility]) Vital Signs (Past 12 Hours) Vital Signs Temp Pulse Resp BP Pulse Ox 07/22/21 19:25 36.8 C 61 18 134/85 97 07/22/21 15:47 36.9 C 53 L 18 145/81 H 98 07/22/21 12:01 36.7 C 50 L 18 132/81 99 Laboratory Results Laboratory Results - last 24 hr 07/22/21 07/22/21 07/22/21 06:52 06:52 06:52 WBC 3.12 L RBC 4.69 L Hgb 12.6 L Hct 39.3 L MCV 83.8 MCH 26.9 MCHC 32.1 RDW Std Deviation 45.7 RDW Coeff of Eliana 14.7 H Plt Count 266 MPV 8.3 Immature Gran % (Auto) 0.0 Neut % (Auto) 41.1 Lymph % (Auto) 44.2 Wh[place] % (Auto) 9.0 Eos % (Auto) 5.4 Baso % (Auto) 0.3 Neut # (Auto) 1.28 L Lymph # (Auto) 1.38 [place] # (Auto) 0.28 Eos # (Auto) 0.17 Baso # (Auto) 0.01 Immature Gran # (Auto) 0.00 Sodium 137 Potassium 4.4 D Chloride 106 Carbon Dioxide 26 Anion Gap 5.0 BUN 16 Creatinine 1.29 Est Cr Clr Drug Dosing 63.2 Est GFR ( Amer) 70.9 Est GFR (Non-Af Amer) 61.1 BUN/Creatinine Ratio 12.4 Glucose 118 H POC Glucose Estimat Average Glucose 154 Hemoglobin A1c 7.0 H Calcium 8.9 Phosphorus 2.6 Magnesium 1.7 L Total Bilirubin 0.5 AST 16 ALT 22 Alkaline Phosphatase 59 Total Protein 7.0 Albumin 3.5 Globulin 3.5 Albumin/Globulin Ratio 1.0 Urine Color Urine Appearance Urine pH Ur Specific [place] Urine Protein Urine Glucose (UA) Urine Ketones Urine Blood Urine Nitrite Urine Bilirubin Urine Urobilinogen Ur Leukocyte Esterase 07/22/21 07/22/21 07/22/21 07:28 11:22 16:30 WBC RBC Hgb Hct MCV MCH MCHC RDW Std Deviation RDW Coeff of Eliana Plt Count MPV Immature Gran % (Auto) Neut % (Auto) Lymph % (Auto) [place] % (Auto) Eos % (Auto) Baso % (Auto) Neut # (Auto) Lymph # (Auto) [place] # (Auto) Eos # (Auto) Baso # (Auto) Immature Gran # (Auto) Sodium Potassium Chloride Carbon Dioxide Anion Gap BUN Creatinine Est Cr Clr Drug Dosing Est GFR ( Amer) Est GFR (Non-Af Amer) BUN/Creatinine Ratio Glucose POC Glucose 105 H 116 H Estimat Average Glucose Hemoglobin A1c Calcium Phosphorus Magnesium Total Bilirubin AST ALT Alkaline Phosphatase Total Protein Albumin Globulin Albumin/Globulin Ratio Urine Color Yellow Urine Appearance Clear Urine pH 6.5 Ur Specific [place] 1.014 Urine Protein Negative Urine Glucose (UA) Negative Urine Ketones Negative Urine Blood Negative Urine Nitrite Negative Urine Bilirubin Negative Urine Urobilinogen Negative Ur Leukocyte Esterase Negative 07/22/21 07/22/21 16:35 20:13 WBC RBC Hgb Hct MCV MCH MCHC RDW Std Deviation RDW Coeff of Eliana Plt Count MPV Immature Gran % (Auto) Neut % (Auto) Lymph % (Auto) [place] % (Auto) Eos % (Auto) Baso % (Auto) Neut # (Auto) Lymph # (Auto) [place] # (Auto) Eos # (Auto) Baso # (Auto) Immature Gran # (Auto) Sodium Potassium Chloride Carbon Dioxide Anion Gap BUN Creatinine Est Cr Clr Drug Dosing Est GFR ( Amer) Est GFR (Non-Af Amer) BUN/Creatinine Ratio Glucose POC Glucose 120 H 105 H Estimat Average Glucose Hemoglobin A1c Calcium Phosphorus Magnesium Total Bilirubin AST ALT Alkaline Phosphatase Total Protein Albumin Globulin Albumin/Globulin Ratio Urine Color Urine Appearance Urine pH Ur Specific [place] Urine Protein Urine Glucose (UA) Urine Ketones Urine Blood Urine Nitrite Urine Bilirubin Urine Urobilinogen Ur Leukocyte Esterase PG Care Time/CCT Total # of Minutes Spent Total Time Spent with Patient: Total time spent is greater than 50% in coordination of care (as documented) at patient's floor/unit and/or counseling patient: Coding Level of Care Code 97128 Subseq Obs Care Lvl 3 Diagnoses Atypical chest pain R07.89 Syncope R55 CAD (coronary artery disease) I25.10 Hypertension I10 Hyperlipidemia E78.5 DM type 2 (diabetes mellitus, type 2) E11.9 BPH (benign prostatic hyperplasia) N40.0 Vertigo R42 Abdominal pain R10.9 Esophagitis K20.90 Hypomagnesemia E83.42 Constipation K59.00
[2021-07-22] MEDS: ROSUVASTATIN CALCIUM 20 MG TAB PO SCH (22:09)
[2021-07-23 06:19] LABS: Magnesium 2.2 mg/dl (1.8-2.4)
[2021-07-23] MEDS: SUCRALFATE 1 GM TAB PO SCH ×3 (08:19→16:26)
[2021-07-23] MEDS: VALSARTAN 80 MG TAB PO SCH (08:19)
[2021-07-23] MEDS: allopurinoL 100 MG TAB PO SCH (08:20)
[2021-07-23] MEDS: FINASTERIDE 5 MG TAB PO SCH (08:20)
[2021-07-23] MEDS: hydroCHLOROthiazide 25 MG TAB PO SCH (08:20)
[2021-07-23] MEDS: PANTOprazole 40 MG TAB PO SCH (08:20)
[2021-07-23] MEDS: amLODIPine BESYLATE 5 MG TAB PO SCH (08:20)
[2021-07-23] MEDS: ASPIRIN 81 MG ECTAB PO SCH (08:21)
[2021-07-23] MEDS: TAMSULOSIN HCL 0.4 MG CAP PO SCH (08:21)
[2021-07-23] MEDS: METOPROLOL TARTRATE 100 MG TAB PO SCH ×2 (08:21→21:38)
[2021-07-23] MEDS: MECLIZINE 12.5 MG TAB PO SCH ×3 (08:21→21:38)
--- NOTE | 2021-07-23 09:48 | Cardiology Progress Note ---
Date of Service July 23, 2021 Assessment & Plan (1) Syncope: (2) Atypical chest pain: Plan: 1. Syncope: There appears to be no obvious cause for his syncope. An arrhythmia is possible although it sounds as though he was not aware of his surroundings for an extended period of time and without objective cardiac findings or other findings of ischemia such as liver, kidney or brain that would be unusual if it were an arrhythmia or cardiac event causing prolonged unconsciousness. Hypotension is possible although I do not believe that was documented. Orthostatic vital signs were done here and were negative although he had been treated already. Still he had recurrent symptoms of dizziness and lightheadedness but as far as I know blood pressure was not done at the time but there was no arrhythmia on monitoring. Some type of cardiac monitoring might be prudent upon discharge, perhaps 30-day monitoring after discharge, although I believe the yield to be low. I would keep him on the monitor here in the hospital. 2. Chest pain: His chest discomfort is probably not cardiac, and it has not recurred. The duration was too long without objective findings either by enzymes or electrocardiography to suggest ischemia. I would pursue other causes. I would not do a stress test. Admission and Anticipated Discharge Date Admission Date: July 21, 2021 Subjective He is still complaining of lightheadedness and dizziness when active, he describes an episode when he went to the bathroom had a bowel movement where he felt very dizzy and lightheaded. No loss of consciousness reported. Physical Exam Physical Exam: Constitutional: Alert, cooperative and in no distress. HEENT: Unremarkable Neck: No jugular venous distention, carotid pulses are normal and equal bilaterally without bruits. Pulmonary: Clear to auscultation bilaterally. Cardiac: Regular rhythm with no murmur, gallop or rub. Abdomen: Soft, nontender with normal bowel sounds. Extremities: No edema. Distal pulses intact. Neurologic: No focal findings. Gait was not tested. Skin: No rash, ecchymoses or petechiae. Results & Data ([facility]) Vital Signs (Past 12 Hours) Vital Signs Temp Pulse Resp BP Pulse Ox 07/23/21 07:39 36.6 C 62 18 134/91 98 07/23/21 03:22 36.6 C 62 18 125/82 100 07/22/21 22:51 36.8 C 62 18 159/93 H 100 Laboratory Results Comprehensive Metabolic Panel 07/23/21 Range/Units 05:29 Potassium 4.0 (3.5-5.1) mmol/L Intake and Output 07/22/21 07/23/21 07/23/21 22:59 06:59 14:59 Intake Total 240 / 1820.833 120 / 1820.833 Output Total 2 / 2 Balance 238 / 1818.833 120 / 1818.833 Intake: Oral 240 / 720 120 / 720 Output: # Bowel Movements 2 / 2 Other: Weight 83.7 kg Weight Measurement Method Built in [facility] Diagnostic Findings Telemetry: Sinus rhythm, no significant arrhythmia including bradycardia or tachycardia PG Care Time/CCT Total # of Minutes Spent Total Time Spent with Patient: Total time spent is greater than 50% in coordination of care (as documented) at patient's floor/unit and/or counseling patient: Coding Level of Care Code 06422 Subseq Hosp Care Lvl 2 Diagnoses Syncope R55 Atypical chest pain R07.89
[2021-07-23] MEDS: DOCUSATE SODIUM 100 MG CAP PO SCH ×2 (10:38→21:40)
[2021-07-23] MEDS: FAMOTIDINE 20 MG in SYRINGE 3 ML IV SCH ×2 (10:38→21:37)
--- NOTE | 2021-07-23 20:20 | Hospitalist Progress Note ---
Date of Service July 23, 2021 Assessment & Plan (1) Atypical chest pain: Plan: despite symptoms his troponins were neg, echo without WMA, and EKGs wnl seen by cardiology - symptoms felt to not be ischemic in origin 2nd to esophagitis? (CTA Chest with esophageal thickening) CTA neg for PE cp has not recurred monitor appreciate cards consult/recs (2) Syncope: Plan: etiology?? orthostatic BPs wnl 2nd vertigo? other? patient has nerve stimulator thus cannot obtain MRI head CT head was neg recommend to senior care 30 event monitor to r/o dysrhythmia as cause (3) CAD (coronary artery disease): Plan: with prior stent see #1 above appreciate cardiology consultation cont asa, metoprolol BID, statin (4) Hypertension: Plan: most readings acceptable cont current meds (5) Hyperlipidemia: Plan: statin (6) DM type 2 (diabetes mellitus, type 2): Plan: a1c 7% DM diet controlled (7) BPH (benign prostatic hyperplasia): Plan: added flomax to finasteride needs urology f/u for this (8) Vertigo: Plan: etiology? present x 3 months cannot get MRI brain due to nerve stimulator (it is not MR compatible per MRI dept) consider vestibular eval by PT meclizine -- increase to TID dosing refer to ENT post-d/c (9) Abdominal pain: Plan: suspect constipation +/- esophagitis resolved eating fine needs bowel maintence + ppi/carafate (10) Esophagitis: Plan: EGD -confirmed (EGD done [facility] this summer) PPI twice daily carafate (11) Hypomagnesemia: Plan: replaced and resolved (12) Constipation: Plan: resolved Plan: anticipate d/c tomorrow if vertigo is reasonably controlled Admission and Anticipated Discharge Date Admission Date: July 23, 2021 Subjective continues with vertigo - associated with moving, and episodes are brief nothing at rest not really a lightheaded feeling orthostatics neg eating well - 100% of meals consumed no emesis constipation resolved - multiple BMs tolerating flomax Review of Systems Review of Systems: gen - chronic fatigue/weakness; turns out he has been in a block at the senior care where he doesn't move around that much CV - no cp pulm - no dyspnea GI - had cramps moving his bowels yesterday - now resolved Physical Exam Physical Exam: gen - NAD eyes - no nystagmus, EOMI neck - no JVD mouth - MMM heart - RRR, s1 s2, no murmur lungs - CTA b/l abd - soft, NT, ND, BS+ ext - no edema neuro - strength 5/5 x 4 exts Results & Data Results & Data ([facility]) Vital Signs (Past 12 Hours) Vital Signs Temp Pulse Pulse Resp BP Pulse Ox 07/23/21 19:54 36.7 C 64 18 115/72 98 07/23/21 17:15 57 L 07/23/21 11:08 36.9 C 54 L 18 107/70 97 Laboratory Results Laboratory Results - last 24 hr 07/22/21 07/23/21 07/23/21 20:13 05:29 07:35 Potassium 4.0 POC Glucose 105 H 119 H Magnesium 2.2 07/23/21 07/23/21 07/23/21 11:31 16:36 20:01 Potassium POC Glucose 131 H 108 H 126 H Magnesium PG Care Time/CCT Total # of Minutes Spent Total Time Spent with Patient: Total time spent is greater than 50% in coordination of care (as documented) at patient's floor/unit and/or counseling patient: Coding Level of Care Code 88543 Subseq Hosp Care Lvl 2 Diagnoses Atypical chest pain R07.89 Syncope R55 CAD (coronary artery disease) I25.10 Hypertension I10 Hyperlipidemia E78.5 DM type 2 (diabetes mellitus, type 2) E11.9 BPH (benign prostatic hyperplasia) N40.0 Vertigo R42 Abdominal pain R10.9 Esophagitis K20.90 Hypomagnesemia E83.42 Constipation K59.00
[2021-07-23] MEDS: ROSUVASTATIN CALCIUM 20 MG TAB PO SCH (21:37)
[2021-07-24] MEDS: ASPIRIN 81 MG ECTAB PO SCH (08:17)
[2021-07-24] MEDS: hydroCHLOROthiazide 25 MG TAB PO SCH (08:17)
[2021-07-24] MEDS: MECLIZINE 12.5 MG TAB PO SCH ×2 (08:17→14:18)
[2021-07-24] MEDS: FINASTERIDE 5 MG TAB PO SCH (08:17)
[2021-07-24] MEDS: PANTOprazole 40 MG TAB PO SCH (08:17)
[2021-07-24] MEDS: SUCRALFATE 1 GM TAB PO SCH ×3 (08:17→16:26)
[2021-07-24] MEDS: VALSARTAN 80 MG TAB PO SCH (08:18)
[2021-07-24] MEDS: TAMSULOSIN HCL 0.4 MG CAP PO SCH (08:18)
[2021-07-24] MEDS: amLODIPine BESYLATE 5 MG TAB PO SCH (08:18)
[2021-07-24] MEDS: allopurinoL 100 MG TAB PO SCH (08:18)
[2021-07-24] MEDS: METOPROLOL TARTRATE 100 MG TAB PO SCH (08:19)
[2021-07-24] MEDS: DOCUSATE SODIUM 100 MG CAP PO SCH (08:22)
[2021-07-24] MEDS: FAMOTIDINE 20 MG in SYRINGE 3 ML IV SCH (08:22)
--- NOTE | 2021-07-24 10:25 | Cardiology Progress Note ---
Date of Service July 24, 2021 Assessment & Plan (1) Syncope: (2) Atypical chest pain: Plan: 1. Syncope: There appears to be no obvious cause for his prehospital syncope. An arrhythmia is possible although it sounds as though he was not aware of his surroundings for an extended period of time and without objective cardiac findings or other findings of ischemia such as liver, kidney or brain that would be unusual if it were an arrhythmia or cardiac event causing prolonged unconsciousness, particularly since he fell over and if it were orthostatic he should have quickly recovered. Hypotension is possible although I do not believe that was documented. Orthostatic vital signs have been done several times here and have been negative, even with ongoing symptoms of dizziness. Some type of cardiac monitoring might be prudent upon discharge, perhaps 30-day monitoring after discharge, although I believe the yield to be quite low as noted above. I would keep him on the monitor here in the hospital. 2. Chest pain: His chest discomfort is probably not cardiac, and it has not recurred. The duration was too long without objective findings either by enzymes or electrocardiography to suggest ischemia. I would not do a stress test. Admission and Anticipated Discharge Date Admission Date: July 23, 2021 Subjective He is sitting at his bedside having just finished some walking with physical therapy. I am told that orthostatic vital signs were done due to continued dizziness with standing and walking and they were negative for orthostatic signs. Sitting on the side of the bed at the moment he is asymptomatic. Physical Exam Physical Exam: Constitutional: Alert, cooperative and in no distress. HEENT: Unremarkable Neck: No jugular venous distention, carotid pulses are normal and equal bilaterally without bruits. Pulmonary: Clear to auscultation bilaterally. Cardiac: Regular rhythm with no murmur, gallop or rub. Abdomen: Soft, nontender with normal bowel sounds. Extremities: No edema. Distal pulses intact. Neurologic: No focal findings. Gait was not tested. Skin: No rash, ecchymoses or petechiae. Results & Data ([facility]) Vital Signs (Past 12 Hours) Vital Signs Temp Pulse Pulse Resp BP Pulse Ox 07/24/21 07:06 36.6 C 50 L 18 119/87 98 07/24/21 02:52 36.7 C 55 L 18 142/80 H 98 07/24/21 00:25 54 L Laboratory Results Intake and Output 07/23/21 07/24/21 07/24/21 22:59 06:59 14:59 Intake Total 750 / 1490 500 / 1490 Output Total 600 / 1200 Balance 750 / 290 -100 / 290 Intake: Oral 750 / 1490 500 / 1490 Output: Urine 600 / 1200 Other: Weight 84 kg Diagnostic Findings Telemetry: Sinus rhythm, rate 40s (during the night, not with activity) to 60s during the day. No significant arrhythmia. PG Care Time/CCT Total # of Minutes Spent Total Time Spent with Patient: Total time spent is greater than 50% in coordination of care (as documented) at patient's floor/unit and/or counseling patient: Coding Level of Care Code 07974 Subseq Hosp Care Lvl 2 Diagnoses Syncope R55 Atypical chest pain R07.89
--- NOTE | 2021-07-24 14:50 | Discharge Summary ---
Date of Service date of admission - July 21, 2021 date of discharge - July 24, 2021 Admission HPI Per Admitting Provider Janak Davidson is a 55y/o M who presents for concerns of chest pain and questionable syncopal episode following which he received CPR. Yesterday evening he was sitting [place] the [employer] [place] when he noticed that he continued to have chest pain. Once the game ended he noted that his chest pain worsened to the point that he needed fresh air and went to the window. He felt like the pain did not improve after being at the window and he then subsequently does not recall anything. According to the EMS, he received chest compressions prior to their arrival for concern of asystole but reportedly had a pulse. Others around him questioned if it was a seizure but he had no seizure-like activity. He denies any specific history of seizures, and had no bladder or bowel incontinence. Has a long-standing history of atypical chest pains, with recent catheterization in September of 2020. Additionally, reports that he has been unable to tolerate eating or drinking since the 09 of July. Usually associated with significant nausea/vomiting, as well as abdominal pain and decreased bowel movements. Principal Diagnosis 1. syncope - etiology uncertain; no evidence of ACS, PE, or stroke 2. vertigo, chronic, exact etiology uncertain 3. constipation - improved 4. presumed BPH Discharge Exam gen - NAD eyes - no nystagmus, EOMI neck - no JVD mouth - MMM heart - RRR, s1 s2, no murmur lungs - CTA b/l abd - soft, NT, ND, BS+ ext - no edema neuro - strength 5/5 x 4 exts Discharge Data Allergies Allergy/AdvReac Type Severity Reaction Status Date / Time lisinopril Allergy Severe ANAPHYLAXIS Verified 01/25/21 18:59 ibuprofen Allergy Intermediate HIVES Verified 01/25/21 18:59 morphine Allergy Intermediate HIVES Verified 01/25/21 18:59 capsaicin Allergy Unknown . Verified 01/25/21 18:59 phenytoin Allergy Unknown unk Verified 01/25/21 18:59 Consultations [facility] Cardiology PT for vestibular evaluation Procedures Performed Echocardiogram - * EF normal * moderate LVH * moderate tricuspid regurgitation * mild pulmonary HTN * grade 1 diastolic dysfunction Ordered Studies Chest CTA 07/21/21 00:01 CHEST CTA for AORTIC DISSECTION CT DOSE: 703.28 mGy.cm HISTORY: severe mid chest and back pain, syncope TECHNIQUE: Multiaxial CT images of the chest were performed both before and after the intravenous administration of contrast to evaluate the aorta. Maximal intensity projection images were also obtained. A dose lowering technique was utilized adhering to the principles of ALARA. COMPARISON STUDY: Chest CTA 01/25/2021. FINDINGS: Noncontrast imaging through the chest shows no evidence for an intramural hematoma within the thoracic aorta. The thoracic aorta is normal in course and caliber with no evidence for dissection. No pleural or pericardial effusions. The heart is borderline enlarged. In the central pulmonary arteries are patent. A 2.4 cm hypodense lesion within the left hepatic lobe demonstrating discontinuous peripheral nodular enhancement. This is consistent with a hemangioma. There are 2 additional subcentimeter hypervascular foci within the left hepatic lobe which are technically too small to characterize but may also represent flash filling hemangiomas. The spleen and visualized adrenal glands are unremarkable. There is a large hiatus hernia, unchanged. Mild thickening of the distal esophagus is also unchanged. No mediastinal or hilar lymphadenopathy. Spinal stimulator leads are again noted. No fractures within the visualized osseous structures. No pneumothorax. The central airways are patent. There are few scattered tree-in-bud nodular opacities seen within the lungs most pronounced within the right middle lobe and lingula. 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 IMPRESSION: 1. No evidence for an aortic dissection. 2. Large hiatus hernia, unchanged. 3. Mild thickening of the distal esophagus, unchanged. 4. A few scattered chronic tree-in-bud nodular opacities. No new focal lung consolidations. ACT 112: Negative or not required by law. Electronically signed by: Ortega Munoz M.D. 07/21/2021 7:22 AM Abdomen/Pelvis CT 07/21/21 04:57 CT SCAN OF THE ABDOMEN AND PELVIS WITHOUT IV CONTRAST CLINICAL HISTORY: Generalized abdominal pain. COMPARISON STUDY: Abdominal CT dated 12/02/2020 TECHNIQUE: CT scan of the abdomen and pelvis is performed from the lung bases to the proximal femora. Images are reviewed in the axial, sagittal, and coronal planes. IV contrast was not administered for this examination. Note that the examination was performed in suboptimal fashion without oral and IV contrast. The examination is degraded by motion artifact. A dose lowering technique was utilized adhering to the principles of ALARA. CT DOSE: 1805.52 mGy.cm FINDINGS: Lung bases: The heart is mildly enlarged and and without pericardial effusion. The lung bases are clear noting bibasilar scarring/atelectasis. There is a moderate to large hiatal hernia. Wall thickening is noted in the distal esophagus. Liver: The unenhanced liver is enlarged and demonstrates diffusely diminished attenuation consistent with hepatic steatosis. Fatty sparing is seen adjacent to the gallbladder fossa. Focal fat is seen adjacent to the falciform ligament. There is no intrahepatic biliary ductal dilatation. Gallbladder: Unremarkable. Spleen: Normal in size and attenuation. Pancreas: Unremarkable. Adrenal glands: Unremarkable. Kidneys: The unenhanced kidneys are normal in size and without hydronephrosis. T he renal collecting system and ureters are filled with excreted IV contrast. The presence of renal calculi cannot be assessed. There is no evidence of contour deforming renal mass lesion. Abdominal vasculature: The abdominal aorta is normal in course and caliber. Bowel: There are scattered colonic diverticula without CT evidence of acute diverticulitis. No bowel obstruction is seen. Mild to moderate fecal retention is noted throughout the colon. A duodenal diverticulum is incidentally noted. The appendix is well-visualized and normal. Peritoneum: There is no intraperitoneal free air or abdominal ascites. A midline surgical scar is noted with evidence of previous ventral hernia repair. Lymphadenopathy: None. Pelvic viscera: The bladder is filled with excreted IV contrast and grossly unremarkable. The prostate and seminal vesicles are normal as imaged. There are bilateral fat-containing inguinal hernias. Skeletal structures: No lytic or blastic lesions are seen. An intrathecal device is present in the right gluteal soft tissues. This enters the central canal in the lower thoracic region. IMPRESSION: 1. Suboptimal examination without oral and IV contrast. 2. There are no acute infectious or inflammatory findings in the abdomen or pelvis. 3. Hepatic steatosis. 4. Moderate to large hiatal hernia with wall thickening of the distal esophagus. Correlate clinically for evidence of esophagitis. If warranted this could be further assessed with endoscopy. 5. Additional findings as above. ACT 112: Negative or not required by law. ' Electronically signed by: Freddy Rosado M.D. 07/21/2021 7:[address] 07/21/21 04:[address] DOSE: HISTORY: syncope TECHNIQUE: Multiaxial CT images of the head were performed without the use of intravenous contrast. Automated exposure control was utilized for this study. A dose lowering technique was utilized adhering to the principles of ALARA. Comparison: None. Findings: The paranasal sinuses and mastoid air cells are clear. The calvarium and skull base are intact. The ventricles and sulci are within normal limits. There is no mass, hematoma, midline shift, or acute infarct. Impression: No acute intracranial abnormality. ACT 112: Negative or not required by law. Electronically signed by: Ortega Munoz M.D. 07/21/2021 7:12 AM KUB X-Ray 07/21/21 15:51 XR KUB/Abdomen 1 view CLINICAL HISTORY: severe abd pain; assess fecal load TECHNIQUE: 1 view of the abdomen was obtained. Comparison: None available at the time of this dictation. FINDINGS: Lung bases are unremarkable. The osseous structures are grossly unremarkable. The bowel gas pattern is nonobstructive. A moderate amount of stool is noted within the large bowel. IMPRESSION: Moderate stool burden without evidence of obstruction. ACT 112: Negative or not required by law. Electronically signed by: Bakari Novak M.D. 07/21/2021 5:59 PM Hospital Course (1) Atypical chest pain: despite his presenting symptoms his troponins were negative, echo without WMA, and EKGs were wnl / without ischemia. seen by [facility] cardiology - symptoms felt to not be ischemic in origin. 2nd to esophagitis? (CTA Chest with esophageal thickening). CTA neg for PE. chest pain resolved and did not recur later in his stay. (2) Syncope: etiology?? 2nd vertigo? hypoglycemia? other? orthostatic BPs were wnl. vestibular evaluation by physical therapy could not reproduce his complaint of vertigo. patient has a nerve stimulator in his back and unfortunately cannot obtain MRI head. CT head was negative, however. recommend to alf 30-day event monitor to r/o dysrhythmia as cause of syncope. (3) CAD (coronary artery disease): with prior stent see #1 above again presenting symptoms were not felt to be ischemic in origin cont asa, metoprolol BID, statin (4) Hypertension: most readings acceptable while here cont current meds (5) Hyperlipidemia: statin (6) DM type 2 (diabetes mellitus, type 2): a1c 7% controlled while here WITH DIET ALONE DURING THE STAY advise DISCONTINUATION of glipizide. advise DISCONTINUATION of insulin. again - DIABETES WAS CONTROLLED WITHOUT ANY ORAL MEDICATION OR INSULIN WHILE HOSPITALIZED. if patient requires medication could consider metformin OR once daily lantus/levemir. (7) BPH (benign prostatic hyperplasia): added flomax to finasteride due to complaints of voiding difficulty (although post-void residual was only mild) needs urology f/u for this issue ua and urine culture were negative/not suggestive of UTI (8) Vertigo: etiology? present x 3 months cannot get MRI brain due to nerve stimulator (it is not MR compatible per MRI dept) vestibular eval by PT could not provoke any vertigo (Pradeep-Hallpike maneuver, etc) cont meclizine TID prn refer to ENT post-d/c refer to neurology post-d/c (9) Abdominal pain: suspect constipation + esophagitis resolved by time of discharge eating fine in the 48 hours prior to Tx back to alf needs bowel maintenance + PPI/carafate for constipation & GERD, respectively (10) Esophagitis: EGD -confirmed (EGD done [facility] this summer) PPI twice daily carafate (11) Hypomagnesemia: replaced and resolved (12) Constipation: resolved with copious bowel agents moderate constipation seen on KUB x-ray prior to clean-out (13) Hiatal hernia: large seen on CT imaging this admission will lend itself to GERD he should remain on PPI twice daily and carafate 1gm AC had outpatient EGD with [facility] in May 2021 confirming hiatal hernia/esophagitis suspect much of his recent GI symptoms were due to his hiatal hernia/esophagitis and constipation Total Time Total Time Spent Total Time Spent (In Minutes): 45 Discharge Plan Discharge Items [facility] Reason For Visit: SYNCOPE Discharge Diagnosis: 1. syncope - uncertain etiology -- due to arrhythmia? due to low blood sugar? other? no evidence of heart attack; no evidence of blood clots in the lungs; echocardiogram normal; telemetry normal 2. vertigo/dizziness x 3 months - uncertain etiology; CT head negative; provoca tive testing (Pradeep-Hallpike, etc) by physical therapy did not reproduce his symptoms 3. constipation - resolved 4. esophagitis 5. BPH (benign prostatic hypertrophy) - flomax added to his finasteride Condition on Discharge: Good Activity: Resume your previous activity Activity Comment: as tolerated Non-emergency contact: Primary Care Provider Call non-emergency contact if: you have any medication questions and your symptoms worsen Follow-up/Referrals: [facility] Urology [Provider Group] (first available, any provider - diagnosis BPH ) Odell Martins MD [Physician] - (first available; dx - vertigo x 3 months, uncertain cause ) Sam,Sonja Olvera PA-C [Physician Heart Specialist] - (or one of her partners; dx - vertigo x 3 months, uncertain cause) RANDALLJacksonvilletroy [Primary Care Provider] - Diet: Carb Consistent or DM2 and Heart Healthy Addtl Attending Provider Instructions: Recommendations - 1. discontinue insulin. discontinue glipizide. Mr DAVIDSON DID NOT REQUIRE ANY INSULIN OR ANY DIABETES TREATMENT WHILE HOSPITALIZED. HE WAS CONTROLLED WITH DIABETIC DIET ALONE. 2. check blood sugars twice daily; report these to medical donation professional. 3. 30-day event monitor advised; please arrange this with cardiology through alf network. dx - syncope 4. refer to [facility] ENT and [facility] Neurology for vertigo x 3 months, uncertain cause. 5. add tamsulosin daily for enlarged prostate. 6. refer to any urologist for diagnosis of BPH. Pending Studies at Discharge: No Stand-Alone Forms: My [facility] Skilled Items Patient informed of condition?: Yes Discharge Level of Care: Other Communicable Disease: No Discharge Prognosis: Stable Lines: None Urinary Catheter: No Medications and DC Order Prescriptions: New polyethylene glycol 3350 [Miralax] 17 gram Powder In Packet 17 g PO DAILY Qty: 1 RF: 0 meclizine 12.5 mg Tablet 12.5 mg PO TID PRN (Reason: vertigo/dizziness) Qty: 30 RF: 0 tamsulosin 0.4 mg Capsule 0.4 mg PO QAM Qty: 30 RF: 2 Continued metoprolol tartrate 100 mg Tablet 100 mg PO BID RF: 0 valsartan 80 mg Tablet 80 mg PO QAM RF: 0 amlodipine 5 mg Tablet 5 mg PO QAM RF: 0 calcium carbonate-vitamin D3 600 mg(1,500mg) -200 unit Tablet 2 tab PO BID RF: 0 allopurinol 100 mg Tablet 100 mg PO QAM RF: 0 aspirin 81 mg Tablet,Delayed Release (Dr/Ec) 81 mg PO QAM RF: 0 finasteride 5 mg Tablet 5 mg PO QAM RF: 0 rosuvastatin 20 mg Tablet 20 mg PO QPM RF: 0 Alvesco 160 mcg/actuation Hfa Aerosol Inhaler 1 puff INHALATION BID RF: 0 sucralfate 1 gram Tablet 1 g PO AC RF: 0 docusate sodium 100 mg Capsule 200 mg PO BID RF: 0 levalbuterol tartrate [Xopenex HFA] 45 mcg/actuation Hfa Aerosol Inhaler 2 inh INHALATION QID PRN (Reason: sob) RF: 0 Changed pantoprazole 20 mg Tablet,Delayed Release (Dr/Ec) 40 mg PO BID Qty: 0 RF: 0 Discontinued Novolin R Regular U-100 Insuln 100 unit/mL Solution 0 unit SUBCUT UD RF: 0 hydrochlorothiazide 25 mg Tablet 25 mg PO QAM RF: 0 glipizide 5 mg Tablet 5 mg PO QAM RF: 0 methocarbamol 500 mg Tablet 500 mg PO BID PRN (Reason: Pain) RF: 0 Discharge Orders: Discharge Order (Routine); Ordered 07/24/21 Ordered By: Willy De Leon/Other Patient Handouts: High Blood Sugar (Hyperglycemia), Hypoglycemia (Low Blood Sugar), Managing Type 2 Diabetes Admission Data Admit Date/Time: 07/23/21 16:06 Attending Provider: Willy Mace Admit Provider: Himanshu Quintanilla Primary Care Provider: Shasta PEREIRA Other Providers: Emile Tomlinson ; Amanuel Lanier Other Interventions: Discharge Summary Assessment (RN) Last Done: 07/24/21 15:02 Coding Level of Care Code D/C DAY MANAGEMENT >30 MINS Diagnoses Atypical chest pain R07.89 Syncope R55 CAD (coronary artery disease) I25.10 Hypertension I10 Hyperlipidemia E78.5 DM type 2 (diabetes mellitus, type 2) E11.9 BPH (benign prostatic hyperplasia) N40.0 Vertigo R42 Abdominal pain R10.9 Esophagitis K20.90 Hypomagnesemia E83.42 Constipation K59.00 Hiatal hernia K44.9
--- NOTE | 2021-07-25 19:24 | Billing Data ---
Date of Service July 25, 2021 Coding Level of Care Code 02522 Initial Inpt Care Lvl 2
== END 2021-07-24 17:00 | DRG 312 ==
LOC: EDINP 23:47 → ED 23:47 → SUATTDRO 07-21 04:57 → 2N 07-21 07:30
DX: Z88.8 Allergy status to other drugs, medicaments and biological substances; Z88.5 Allergy status to narcotic agent; K20.90 Esophagitis, unspecified without bleeding; Z79.4 Long term (current) use of insulin; I25.10 Atherosclerotic heart disease of native coronary artery without angina pectoris; Z87.891 Personal history of nicotine dependence; Z86.73 Personal history of transient ischemic attack (TIA), and cerebral infarction without residual deficits; R42 Dizziness and giddiness; E78.5 Hyperlipidemia, unspecified; E11.9 Type 2 diabetes mellitus without complications; K59.00 Constipation, unspecified; R79.89 Other specified abnormal findings of blood chemistry; N40.0 Benign prostatic hyperplasia without lower urinary tract symptoms; I10 Essential (primary) hypertension; R55 Syncope and collapse; Z95.5 Presence of coronary angioplasty implant and graft; Z79.82 Long term (current) use of aspirin; E83.42 Hypomagnesemia

== ENCOUNTER 2022-02-14 04:43 | Inpatient (IN) ==
[2022-02-14] MEDS ORDERED: NITROGLYCERIN 2% OINTMENT 30GM TUBE EXT STA (05:17)
[2022-02-14] MEDS ORDERED: ACETAMINOPHEN 1,000 MG/100 ML VIAL IV STA (05:17)
--- NOTE | 2022-02-14 05:22 | Emergency Department Note ---
History of Present Illness General Chief complaint: Chest Pain Stated complaint: CHEST PAIN Time Seen by Provider: 02/14/22 04:44 Source: patient Mode of arrival: EMS Limitations: no limitations History of Present Illness Provider complaint: Chest pain Onset (ago): hour(s) 3 Location: chest Radiation: back, neck and extremity Severity: moderate Pain Consistency: + constant Maximum Pain Intensity: 8 Associated symptoms: no chest pain, no nausea/vomiting or no shortness of breath Treatments prior to arrival: none This is a 56-year-old male presents emergency department via EMS due to chest pain. Patient states chest pain is central and slightly left-sided and radiates into his back, neck, and left upper extremity. Patient states pain is sharp in nature. He states this is similar to prior episodes. Patient does have a prior history of coronary artery disease status post 2 stents. Patient states he recently underwent a repeat cardiac catheterization as part of an evaluation for an abnormal heart valve that he is supposed to have additional evaluated at [place]. Patient states he had a sharp sudden onset of pain at around 230 this morning. No medications given by the [facility], however EMS gave the patient aspirin and 2 nitro. He states he had minimal improvement following this. Patient denies any shortness of breath, diaphoresis, nausea or vomiting. He states he was slightly dizzy. Pt seen during a time of high acuity and national emergency pandemic while wearing PPE. Home Medications Medication Instructions Recorded Confirmed Type allopurinol 100 mg tablet 100 mg PO QAM 09/23/20 02/14/22 History aspirin 81 mg tablet,delayed 81 mg PO QAM 09/23/20 02/14/22 History release calcium carbonate 600 mg-vitamin 2 tab PO BID 09/23/20 02/14/22 History D3 5 mcg (200 unit) tablet finasteride 5 mg tablet 5 mg PO QAM 09/23/20 02/14/22 History rosuvastatin 20 mg tablet 20 mg PO HS 09/23/20 02/14/22 History valsartan 80 mg tablet 80 mg PO QAM 09/23/20 02/14/22 History ciclesonide 160 mcg/actuation 1 puff INHALATION BID 07/21/21 02/14/22 History aerosol inhaler (Alvesco) docusate sodium 100 mg capsule 200 mg PO BID 07/21/21 02/14/22 History meclizine 12.5 mg tablet 12.5 mg PO TID PRN #30 tab 07/24/21 02/14/22 Rx polyethylene glycol 3350 17 gram 17 g PO DAILY #1 btl 07/24/21 02/14/22 Rx oral powder packet (Miralax) albuterol sulfate 90 mcg/actuation 2 puff INHALATION QID PRN 02/06/22 02/14/22 History aerosol inhaler aluminum hydrox-magnesium carb 95 30 ml PO PCHS PRN 02/06/22 02/14/22 History mg-358 mg/15 mL oral suspension (Acid Gone Antacid) amlodipine 5 mg tablet 5 mg PO DAILY 02/06/22 02/14/22 History aripiprazole 2 mg tablet (Abilify) 2 mg PO DAILY 02/06/22 02/14/22 History duloxetine 60 mg capsule,delayed 60 mg PO BID 02/06/22 02/14/22 History release insulin glargine 100 unit/mL 11 unit SUBCUT DAILY 02/06/22 02/14/22 History subcutaneous solution insulin regular human 100 unit/mL 1 sliding scale dose SUBCUT 02/06/22 02/14/22 History injection solution (Novolin R USEASDIRECTD Regular U-100 Insulin) metoprolol tartrate 25 mg tablet 12.5 mg PO BID 02/06/22 02/14/22 History pantoprazole 40 mg tablet,delayed 40 mg PO DAILY 02/06/22 02/14/22 History release prazosin 2 mg capsule 2 mg PO HS 02/06/22 02/14/22 History tamsulosin 0.4 mg capsule 0.8 mg PO HS 02/06/22 02/14/22 History Allergies Allergy/AdvReac Type Severity Reaction Status Date / Time lisinopril Allergy Severe ANAPHYLAXIS Verified 02/14/22 07:06 ibuprofen Allergy Intermediate HIVES Verified 02/14/22 07:06 morphine Allergy Intermediate HIVES Verified 02/14/22 07:06 capsaicin Allergy Unknown Unknown Verified 02/14/22 07:06 phenytoin Allergy Unknown Unknown Verified 02/14/22 07:06 Past Med/Surg History Medical History (Updated 02/14/22 @ 23:59 by Adina Villavicencio DO) Acute myocardial infarction 2020 s/p LAD stent Angina pectoris Asthma Atypical chest pain Bowel obstruction CAD (coronary artery disease) Depression DM type 2 (diabetes mellitus, type 2) Esophagitis on EGD, [facility], 2020 Head injury Hiatal hernia History of CVA (cerebrovascular accident) Hx SBO Hyperlipidemia Hypertension Iron deficiency anemia Peptic ulcer disease Pulmonary hypertension Sarcoidosis Skin cancer Syncope Tricuspid regurgitation Surgical History (Updated 02/14/22 @ 23:59 by Adina Villavicencio DO) H/O exploratory laparotomy "05/31/2015 with lysis of adhesions, release of bowel obstruction, repair of incisional hernia" H/O ventral hernia repair History of back surgery S/P cardiac cath S/P coronary artery stent placement (05/07/13) "2000" Family History Mother , age 67 Lung cancer Father , age 68 Lung cancer Brother Stroke age 55 Social History Smoking Status: Unknown if ever smoked Hx Alcohol Use: No Hx Substance Use: No Preferred Language: Burkinan Communication Ability: Effective Coronary Clinical Specialist Required: No Beliefs That Will Affect Care: None Current Living Situation: Other Current Living Situation Comment: [facility] Feels Safe at Home: Yes Assistive Devices: Cane Review of Systems A total of 10 systems reviewed and were otherwise negative All systems reviewed & are unremarkable except as noted in HPI & below Physical Exam Vital Signs Vital Signs - 24 hr 02/14/22 05:02 02/14/22 05:06 02/14/22 05:28 Temperature 37.0 C Temperature Source Oral Pulse Rate 83 93 H Pulse Rate [Apical] Pulse Rhythm Regular Pulse Strength Normal Respiratory Rate 22 16 Respiratory Effort / Characteristics Non-Labored Respiratory Depth Normal Respiratory Pattern Regular Blood Pressure 147/88 H 99/66 L Blood Pressure [Left Arm] Blood Pressure Mean 107 77 Blood Pressure Mean [Left Arm] Blood Pressure Position Lying Pulse Oximetry 94 95 Oxygen Delivery Method Room Air Room Air Room Air Sepsis Recent Fever Within 48 Hours No Sepsis New/Unexplained Change in Mental Status N/A Sepsis Action Taken by Nursing No Action Required 02/14/22 05:30 02/14/22 05:45 02/14/22 07:00 Temperature Temperature Source Pulse Rate 86 76 Pulse Rate [Apical] 74 Pulse Rhythm Pulse Strength Respiratory Rate 9 L 17 Respiratory Effort / Characteristics Respiratory Depth Respiratory Pattern Blood Pressure 133/92 118/81 Blood Pressure [Left Arm] 136/91 Blood Pressure Mean 105 93 Blood Pressure Mean [Left Arm] 106 Blood Pressure Position Pulse Oximetry 94 92 94 Oxygen Delivery Method Room Air Room Air Room Air Sepsis Recent Fever Within 48 Hours Sepsis New/Unexplained Change in Mental Status Sepsis Action Taken by Nursing 02/14/22 09:00 Temperature Temperature Source Pulse Rate Pulse Rate [Apical] 65 Pulse Rhythm Pulse Strength Respiratory Rate 12 Respiratory Effort / Characteristics Non-Labored Spontaneous Respiratory Depth Normal Respiratory Pattern Blood Pressure Blood Pressure [Left Arm] 142/94 H Blood Pressure Mean Blood Pressure Mean [Left Arm] 110 Blood Pressure Position Pulse Oximetry 97 Oxygen Delivery Method Room Air Sepsis Recent Fever Within 48 Hours Sepsis New/Unexplained Change in Mental Status Sepsis Action Taken by Nursing GENERAL: alert, well appearing, well nourished, no distress, non-toxic EYE EXAM: normal conjunctiva, PERRL and EOM's grossly intact OROPHARYNX: no exudate, no erythema, lips, buccal mucosa, and tongue normal and mucous membranes are moist NECK: supple, no nuchal rigidity, no adenopathy, non-tender LUNGS: Clear to auscultation. Normal chest wall mechanics, no w/r/r HEART: no murmurs, S1 normal and S2 normal ABDOMEN: abdomen soft, non-tender, normo-active bowel sounds, no masses, no rebound or guarding. BACK: Back is symmetrical on inspection and there is no deformity, no midline tenderness, no CVA tenderness. SKIN: no rashes and no bruising UPPER EXTREMITIES: upper extremities are grossly normal. FROM, nml pulses b/l. LOWER EXTREMITIES: No pitting edema. FROM, nml pulses b/l. NEURO EXAM: Normal sensorium, cranial nerves II-XII grossly intact, normal speec h, no gross weakness of arms, no gross weakness of legs. Gross sensation intact. Course Administered Medications Acetaminophen (Acetaminophen 325 Mg Tab) 650 mg PO Q4H PRN PRN Reason: Pain or Fever Stop: 03/16/22 10:45 Last Admin: 02/14/22 23:07 Dose: 650 mg Documented by: [id number] Admin: 02/14/22 17:14 Dose: 650 mg Documented by: [id number] Docusate Sodium (Docusate Sodium 100 Mg Cap) 200 mg PO BID LIN Stop: 03/16/22 20:59 Last Admin: 02/14/22 21:38 Dose: 200 mg Documented by: [id number] Duloxetine HCl (Duloxetine Hcl 60 Mg Cap) 60 mg PO BID LIN Stop: 03/16/22 20:59 Last Admin: 02/14/22 21:38 Dose: 60 mg Documented by: [id number] Insulin Aspart (Insulin Aspart Per Unit) 0 units SC ACHS LIN Stop: 03/16/22 11:29 Last Admin: 02/14/22 20:51 Dose: Not Given Documented by: [id number] Admin: 02/14/22 17:03 Dose: 5 units Documented by: [id number] Cosigned by: [id number] Admin: 02/14/22 12:53 Dose: 3 units Documented by: [id number] Cosigned by: [id number] Metoprolol Tartrate (Metoprolol Tartrate 25 Mg Tab) 12.5 mg PO BID LIN Stop: 03/16/22 20:59 Last Admin: 02/14/22 21:38 Dose: 12.5 mg Documented by: [id number] Pantoprazole Sodium (Pantoprazole 40 Mg Tab) 40 mg PO BID LIN Stop: 03/16/22 20:59 Last Admin: 02/14/22 21:38 Dose: 40 mg Documented by: [id number] Rosuvastatin Calcium (Rosuvastatin Calcium 20 Mg Tab) 20 mg PO HS LIN Stop: 03/16/22 20:59 Last Admin: 02/14/22 21:38 Dose: 20 mg Documented by: [id number] Sucralfate (Sucralfate 1 Gm/10 Ml Udc) 1 gm PO QID LIN Stop: 03/16/22 20:59 Last Admin: 02/14/22 21:38 Dose: 1 gm Documented by: [id number] Tamsulosin HCl (Tamsulosin Hcl 0.4 Mg Cap) 0.8 mg PO HS LIN Stop: 03/16/22 20:59 Last Admin: 02/14/22 21:38 Dose: 0.8 mg Documented by: [id number] Discontinued Medications Fentanyl Citrate (Fentanyl Citrate 100 Mcg/2 Ml Vial) 50 mcg IV NOW STA Stop: 02/14/22 07:43 Last Admin: 02/14/22 07:53 Dose: 50 mcg Documented by: [id number] Furosemide (Furosemide Inj 20 Mg/2 Ml Vial) 20 mg IV ONE ONE Stop: 02/14/22 11:09 Last Admin: 02/14/22 12:25 Dose: 20 mg Documented by: [id number] Acetaminophen (Ofirmev) 1,000 mg in 100 mls @ 400 mls/hr IV NOW STA Stop: 02/14/22 05:31 Last Infusion: 02/14/22 05:47 Dose: 0 mls/hr Documented by: [id number] Admin: 02/14/22 05:32 Dose: 400 mls/hr Documented by: [id number] Magnesium Sulfate/Dextrose (Magnesium Sulfate / D5w) 1 gm in 100 mls @ 100 mls/hr IV NOW STA Stop: 02/14/22 08:36 Last Infusion: 02/14/22 08:54 Dose: 0 mls/hr Documented by: [id number] Admin: 02/14/22 07:54 Dose: 100 mls/hr Documented by: [id number] Famotidine (Pepcid 20mg Iv Push) 20 mg in 5 mls @ 2.5 mls/min IV NOW STA Stop: 02/14/22 08:04 Last Admin: 02/14/22 08:21 Dose: 2.5 mls/min Documented by: [id number] Pantoprazole Sodium 40 mg/ (Syringe) 10 mls @ 5 mls/min IV TODAY@0945 ONE Stop: 02/14/22 09:46 Last Admin: 02/14/22 10:00 Dose: 5 mls/min Documented by: [id number] Ioversol (Optiray 320 125ml) 119 ml IV ONCE ONE Stop: 02/14/22 06:35 Last Admin: 02/14/22 06:35 Dose: 119 ml Documented by: [id number] Nitroglycerin (Nitroglycerin 2% Ointment 30gm Tube) 1 inch EXT NOW STA Stop: 02/14/22 05:18 Last Admin: 02/14/22 06:36 Dose: Not Given Documented by: [id number] Nitroglycerin (Nitroglycerin 2% Ointment 30gm Tube) 0.5 inch EXT NOW ONE Stop: 02/14/22 09:02 Last Admin: 02/14/22 09:58 Dose: 0.5 inch Documented by: [id number] Sucralfate (Sucralfate 1 Gm/10 Ml Udc) 1 gm PO ONCE ONE Stop: 02/14/22 09:03 Last Admin: 02/14/22 09:59 Dose: 1 gm Documented by: [id number] Medical Decision Making Differential Diagnosis Differential diagnoses includes but is not limited to acute coronary syndrome, myocardial infarction, pericarditis, pulmonary embolus, aortic dissection, pneumonia, pneumothorax, musculoskeletal, shingles, esophageal. Medical Records Attestation: I reviewed the patient's medical records. Home Medications Current Medication List: was personally reviewed by me Laboratory Data Attestation: I reviewed the patient's lab results. Result diagrams: 02/14/22 05:05 02/14/22 05:05 Lab Results 02/14/22 02/14/22 02/14/22 Range/Units 05:05 05:05 05:05 WBC 4.38 L (4.8-10.8) K/uL RBC 4.26 L (4.7-6.1) M/uL Hgb 11.9 L (14.0-18.0) g/dL Hct 36.5 L (42-52) % MCV 85.7 (80-100) fL MCH 27.9 (25-34) pg MCHC 32.6 (32-36) g/dL RDW Std Deviation 43.8 (36.4-46.3) fL RDW Coeff of Eliana 14.1 (11.5-14.5) % Plt Count 230 (130-400) K/uL MPV 7.8 (7.4-10.4) fL Immature Gran % (Auto) 0.2 % Neut % (Auto) 56.5 % Lymph % (Auto) 32.2 % [place] % (Auto) 8.4 % Eos % (Auto) 2.5 % Baso % (Auto) 0.2 % Neut # (Auto) 2.47 (1.4-6.5) K/uL Lymph # (Auto) 1.41 (1.2-3.4) K/uL [place] # (Auto) 0.37 (0.11-0.59) K/uL Eos # (Auto) 0.11 (0-0.5) K/uL Baso # (Auto) 0.01 (0-0.2) K/uL Immature Gran # (Auto) 0.01 (0.00-0.02) K/uL Sodium 137 (136-145) mmol/L Potassium 3.8 (3.5-5.1) mmol/L Chloride 103 (98-107) mmol/L Carbon Dioxide 25 (21-32) mmol/L Anion Gap 9 (3-11) BUN 19 (6-23) mg/dl Creatinine 1.13 (0.6-1.4) mg/dl Est Cr Clr Drug Dosing 126.3 ml/min Est GFR ( Amer) 82.6 ml/min Est GFR (Non-Af Amer) 71.3 ml/min BUN/Creatinine Ratio 16.8 (10-20) Glucose 167 H (70-99(Fasting)) mg/dl Calcium 9.4 (8.5-10.1) mg/dl Magnesium 1.6 L (1.7-2.4) mg/dl Total Bilirubin 0.4 (0.2-1.0) mg/dl AST 18 (13-39) U/L ALT 18 (7-52) U/L Alkaline Phosphatase 66 (34-104) U/L Troponin I High Sens 94.8 H* D (0-20) pg/ml B-Natriuretic Peptide 8 (0-100) pg/ml Total Protein 6.8 (6.0-8.3) gm/dl Albumin 4.2 (3.4-5.0) gm/dl Globulin 2.6 (2.5-4.0) gm/dl Albumin/Globulin Ratio 1.6 (0.9-2) Lipase 22 (11-82) U/L SARS-CoV-2, RNA, NAAT (NEGATIVE) 02/14/22 02/14/22 Range/Units 08:05 08:15 WBC (4.8-10.8) K/uL RBC (4.7-6.1) M/uL Hgb (14.0-18.0) g/dL Hct (42-52) % MCV (80-100) fL MCH (25-34) pg MCHC (32-36) g/dL RDW Std Deviation (36.4-46.3) fL RDW Coeff of Eliana (11.5-14.5) % Plt Count (130-400) K/uL MPV (7.4-10.4) fL Immature Gran % (Auto) % Neut % (Auto) % Lymph % (Auto) % [place] % (Auto) % Eos % (Auto) % Baso % (Auto) % Neut # (Auto) (1.4-6.5) K/uL Lymph # (Auto) (1.2-3.4) K/uL [place] # (Auto) (0.11-0.59) K/uL Eos # (Auto) (0-0.5) K/uL Baso # (Auto) (0-0.2) K/uL Immature Gran # (Auto) (0.00-0.02) K/uL Sodium (136-145) mmol/L Potassium (3.5-5.1) mmol/L Chloride (98-107) mmol/L Carbon Dioxide (21-32) mmol/L Anion Gap (3-11) BUN (6-23) mg/dl Creatinine (0.6-1.4) mg/dl Est Cr Clr Drug Dosing ml/min Est GFR ( Amer) ml/min Est GFR (Non-Af Amer) ml/min BUN/Creatinine Ratio (10-20) Glucose (70-99(Fasting)) mg/dl Calcium (8.5-10.1) mg/dl Magnesium (1.7-2.4) mg/dl Total Bilirubin (0.2-1.0) mg/dl AST (13-39) U/L ALT (7-52) U/L Alkaline Phosphatase (34-104) U/L Troponin I High Sens 111.2 H* (0-20) pg/ml B-Natriuretic Peptide (0-100) pg/ml Total Protein (6.0-8.3) gm/dl Albumin (3.4-5.0) gm/dl Globulin (2.5-4.0) gm/dl Albumin/Globulin Ratio (0.9-2) Lipase (11-82) U/L SARS-CoV-2, RNA, NAAT NEGATIVE (NEGATIVE) Imaging Data Radiologist's Impression: CTA chest: No acute findings on noncontrast imaging. No evidence of intramural hematoma. No evidence of aortic dissection. No aneurysm. No evidence of aortic pathology. No evidence of pulmonary embolism. Large hiatal hernia. No evidence of consolidation. No other acute findings. Radiologist: Luke Bazzi MD ECG Data Attestation: I personally reviewed and interpreted this ECG as follows: Indication: + chest pain Rate (beats per minute): 87 Rhythm: + normal sinus ECG Intervals/blocks: + Normal QRS and + Normal QT ECG [place]: + Normal ECG ST segments: + T-wave inversions (III, V3) MDM Narrative An order was placed for continuous cardiac monitoring. The monitor shows a rate of __86_ with _normal sinus__ rhythm. This is a 56-year-old male presents via EMS due to concern for recurrent chest pain. Patient has been having intermittent chest pain over the course of the last several months being worked up by the doctor in the [facility]. Patient did undergo a cardiac catheterization as part of evaluation and eventual referral to [facility] due to concern for significant tricuspid regurgitation. Patient was afebrile and hemodynamically stable here, no significant changes noted on initial EKG. Labs drawn and sent, and CT angiography of the chest ord ered due to patient's description of pain radiating through to the back. Patient was given additional nitro here as he did have some relief from EMS. Patient given fentanyl in addition. CT ultimately reassuring, first troponin elevated although I suspect related to cardiac catheterization. Given his persistent pain despite several medications and unclear plan going forward I did contact the hospitalist for additional evaluation and management. Repeat troponin added at the time of this discussion which they will follow. Possible component of GI etiology of his pain given large hiatal hernia noted on CT. Patient denied any recent GERD symptoms. No evidence of overt CHF. Impression & Plan Chest pain, Hiatal hernia, Tricuspid regurgitation, S/P cardiac catheterization Discharge Plan Visit Data Chief Complaint: Chest Pain Stated Complaint: CHEST PAIN ED Provider: Adina Villavicencio Discharge Problem: Chest pain, Hiatal hernia, Tricuspid regurgitation, S/P cardiac catheterization Patient Disposition: Admitted As Inpatient Discharge Instructions Interventions: ED Discharge Assessment Last Done: 02/14/22 10:21 Discharge Problem: Chest pain Qualifiers: Chest pain type: unspecified Qualified Code(s): R07.9 - Chest pain, unspecified Tricuspid regurgitation Qualifiers: Cardiac valve disease etiology: etiology unspecified Qualified Code(s): I07.1 - Rheumatic tricuspid insufficiency
[2022-02-14 05:35] LABS: Basophils # (auto) 0.01 K/uL (0-0.2); Basophils % (auto) 0.2 %; Eosinophils # (auto) 0.11 K/uL (0-0.5); Eosinophils % (auto) 2.5 %; Hematocrit (blood only) 36.5 % (42-52); Hemoglobin 11.9 g/dL (14.0-18.0); Immature Granulocytes # (auto) 0.01 K/uL (0.00-0.02); Immature Granulocytes % (auto) 0.2 %; Lymphocytes # (auto) 1.41 K/uL (1.2-3.4); Lymphocytes % (auto) 32.2 %; Mean Corpuscular Hemoglobin 27.9 pg (25-34); Mean Corpuscular Hgb Conc 32.6 g/dL (32-36); Mean Corpuscular Volume 85.7 fL (80-100); Mean Platelet Volume 7.8 fL (7.4-10.4); Monocytes # (auto) 0.37 K/uL (0.11-0.59); Monocytes % (auto) 8.4 %; Neutrophils # (auto) 2.47 K/uL (1.4-6.5); Neutrophils % (auto) 56.5 %; Platelet Count 230 K/uL (130-400); RDW Coefficient of Variation 14.1 % (11.5-14.5); RDW Standard Deviation 43.8 fL (36.4-46.3); Red Blood Count 4.26 M/uL (4.7-6.1); White Blood Count 4.38 K/uL (4.8-10.8)
[2022-02-14 06:01] LABS: Albumin Globulin Ratio 1.6 (0.9-2); Albumin Level 4.2 gm/dl (3.4-5.0); BUN Creatinine Ratio 16.8 (10-20); Bilirubin,Total 0.4 mg/dl (0.2-1.0); Calcium 9.4 mg/dl (8.5-10.1); Creatinine Clr Calc Pharmacy 126.3 ml/min; Est GFR (African American) 82.6 ml/min; Est GFR (Non-African American) 71.3 ml/min; Globulin 2.6 gm/dl (2.5-4.0); Magnesium 1.6 mg/dl (1.7-2.4); Potassium 3.8 mmol/L (3.5-5.1); Total Protein 6.8 gm/dl (6.0-8.3)
[2022-02-14 06:04] LABS: Troponin I High Sensitivity 94.8 pg/ml (0-20)
[2022-02-14] MEDS ORDERED: OPTIRAY 320 125ml IV ONE (06:34)
[2022-02-14] MEDS ORDERED: MAGNESIUM SULFATE / D5W 1 GM/100 ML BAG IV STA (07:37)
[2022-02-14] MEDS ORDERED: fentaNYL citrate 100 MCG/2 ML VIAL IV STA (07:42)
[2022-02-14] MEDS ORDERED: FAMOTIDINE 20MG IV PUSH 20 MG/5 ML SYR IV STA (08:03)
--- NOTE | 2022-02-14 08:11 | CT Scan Report ---
CT angio chest dissec wo/w con CLINICAL HISTORY: chest pain into back TECHNIQUE: Multidetector row helical CT of the chest was performed before and after injection of IV c ontrast. Coronal and sagittal reformations were obtained. Automated dose lowering techniques and/or a djustment according to patient size were utilized for this exam. CT DOSE: 684.60 mGy.cm Comparison: Comparison is made to CT chest 07/21/2021 FINDINGS: Lungs and pleura: Minimal atelectasis is noted in the dependent portion of the lungs. Heart and pericardium: Heart size is normal. No pericardial effusion. Vessels: No aortic dissection is seen. Mediastinum and chaitanya: Unremarkable. Chest wall and lower neck: Small thyroid nodules are noted which do not require follow-up by ACR ray aguilar. Abdomen: A hiatal hernia is seen. There is an avidly enhancing focus in the left liver measuring 14 m m. Bones: A spinal stimulator is seen. IMPRESSION: 1. No evidence of aortic dissection. No intramural hematoma. 2. Avidly enhancing focus in the liver is favored to represent hemangioma or FNH, however if not pre viously evaluated, dedicated CT or MR liver protocol can be performed. ACT 112: Negative or not required by law. Electronically signed by: Bakari Novak M.D. 02/14/2022 8:10 AM
[2022-02-14] MEDS ORDERED: NITROGLYCERIN 2% OINTMENT 30GM TUBE EXT ONE (09:01)
[2022-02-14] MEDS ORDERED: SUCRALFATE 1 GM/10 ML UDC PO ONE (09:02)
--- NOTE | 2022-02-14 09:07 | History & Physical Report ---
Date of Service February 14, 2022 Assessment & Plan (1) Chest pain: Plan: Given his cardiac cath findings on 02/13 (see HPI) it is unlikely that his presenting symptoms are from ischemia. I consulted Dr Leonardo Larson from [facility] who recommended an urgent limited echo to check LV wall motion. LV EF was preserved, and there were no wall motion abnormalities. EKG findings, known cardiac cath findings, and unchanged echo also support non- ischemic etiology for his symptoms. Further, there is no evidence for aortic dissection, PE, or clinical evidence of pericarditis. Appreciate Dr Larson's consultation. Will trend his troponins to be complete. Place on telemetry. In the event his pain is GI in origin will increase PPI to twice daily, and add carafate QID. (2) Elevated troponin: Plan: Likely 2nd to cardiac cath performed yesterday, and in particular performing FFR across the mid-LAD. Doubt due to ischemia. Trend the troponins. (3) Tricuspid regurgitation: Plan: Moderate on echo 2020. By report an echo via the correction system more recently showed severe TR. He has been referred to the valve clinic at [facility]. Dr Larson to consult from [facility] for his opinion. (4) CAD (coronary artery disease): Plan: Known CAD. h/o acute NC 2000 s/p LAD stent. s/p cardiac cath yesterday at [facility]. 50% mid-LAD lesion (in-stent stenosis). FFR 0.85 thus ischemia unlikely. Repeat echo today with normal LV wall motion. Continue statin. Continue beta carmen. Continue asa. Continue amlodipine. (5) Esophagitis: Plan: EGD/colonoscopy performed 05/2021 for anemia by Augustine Romero. EGD showed hiatal hernia with esophagitis. Upper GI pathology could be the cause of his symptoms. Increase PPI to twice daily, and add carafate 1gm QID. Consider repeat GI consultation if chest symptoms persist. (6) Hiatal hernia: Plan: Large. Could be contributing to episodes of chest pain. See #5 above. (7) Sarcoidosis: Plan: No evidence of active disease on CT chest imaging. (8) Diabetes mellitus: Plan: Last a1c was fall 2020 -- 7.1%. Repeat in am. Cont lantus. Add novolog SSI. (9) Hyperlipidemia: Plan: Cont statin. (10) History of CVA (cerebrovascular accident): Plan: Noted. Cont asa for secondary prevention. (11) BPH w urinary obs/LUTS: Plan: Cont alpha carmen (was taking flomax + prazosin - will stop latter - likely little benefit to dual alpha carmen therapy). Cont finasteride. History of Present Illness Chief Complaint: chest pain Primary Care Provider: [facility] 56yo AA male, prisoner of [facility], with known CAD s/p acute NC with stenting in 2000 ([facility]), T2DM, asthma, large hiatal hernia with prior esophagitis, h/o sarcoid, and tricuspid regurgitation. Patient presents with the acute onset of substernal chest pain radiating to the left upper chest, left neck, left arm, and into the back. Symptoms began while watching TV in the [facility] early this AM (2am, 3am). EKG was obtained by the [facility] staff, and he was brought to [facility] for evaluation. Patient has been having episodes of chest pain lasting 30-60 minutes for several weeks, sometimes on daily basis. Episodes occur at rest and with exertion. Some of the symptoms are similar to when he had his acute NC in 2000. He has been given tums during episodes without relief. He has had nitroglycerin prn during episodes without complete relief. Symptoms often simply resolve on their own. At some point the correction performed an echo demonstrating severe TR and has been referred to the valve clinic at [facility]; he has yet to have this consultation. In preparation for such he underwent an elective heart cath yesterday by Dr Tomás Alicia and Dr Matthieu De of [facility]. He states he had chest pain during the cath itself, but by the time he was discharged back to correction those symptoms had resolved. Heart cath findings - Diagnostic cath by Dr Alciia - Impression: 1. Nonobstructive CAD angiographically, however chest discomfort and peak T waves occurred while performing angiography of the left system, with haziness noted within the mid LAD stent. 2. Mildly elevated pulmonary capillary wedge pressure. 3. No aortic stenosis. 4. Top normal pulmonary artery pressure. 5. Normal cardiac output. Additional cath by Dr De - Summary: 1. Nonobstructive moderate mid LAD in-stent restenosis (FFR 0.85). 2. Mild concentric calcified in-stent restenosis on IVUS. 40% ostial circumflex on IVUS. Allergies Allergy/AdvReac Type Severity Reaction Status Date / Time lisinopril Allergy Severe ANAPHYLAXIS Verified 02/14/22 07:06 ibuprofen Allergy Intermediate HIVES Verified 02/14/22 07:06 morphine Allergy Intermediate HIVES Verified 02/14/22 07:06 capsaicin Allergy Unknown Unknown Verified 02/14/22 07:06 phenytoin Allergy Unknown Unknown Verified 02/14/22 07:06 Home Medications Medication Instructions Recorded Confirmed Type allopurinol 100 mg tablet 100 mg PO QAM 09/23/20 02/14/22 History aspirin 81 mg tablet,delayed 81 mg PO QAM 09/23/20 02/14/22 History release calcium carbonate 600 mg-vitamin 2 tab PO BID 09/23/20 02/14/22 History D3 5 mcg (200 unit) tablet finasteride 5 mg tablet 5 mg PO QAM 09/23/20 02/14/22 History rosuvastatin 20 mg tablet 20 mg PO HS 09/23/20 02/14/22 History valsartan 80 mg tablet 80 mg PO QAM 09/23/20 02/14/22 History ciclesonide 160 mcg/actuation 1 puff INHALATION BID 07/21/21 02/14/22 History aerosol inhaler (Alvesco) docusate sodium 100 mg capsule 200 mg PO BID 07/21/21 02/14/22 History meclizine 12.5 mg tablet 12.5 mg PO TID PRN #30 tab 07/24/21 02/14/22 Rx polyethylene glycol 3350 17 gram 17 g PO DAILY #1 btl 07/24/21 02/14/22 Rx oral powder packet (Miralax) albuterol sulfate 90 mcg/actuation 2 puff INHALATION QID PRN 02/06/22 02/14/22 History aerosol inhaler aluminum hydrox-magnesium carb 95 30 ml PO PCHS PRN 02/06/22 02/14/22 History mg-358 mg/15 mL oral suspension (Acid Gone Antacid) amlodipine 5 mg tablet 5 mg PO DAILY 02/06/22 02/14/22 History aripiprazole 2 mg tablet (Abilify) 2 mg PO DAILY 02/06/22 02/14/22 History duloxetine 60 mg capsule,delayed 60 mg PO BID 02/06/22 02/14/22 History release insulin glargine 100 unit/mL 11 unit SUBCUT DAILY 02/06/22 02/14/22 History subcutaneous solution insulin regular human 100 unit/mL 1 sliding scale dose SUBCUT 02/06/22 02/14/22 History injection solution (Novolin R USEASDIRECTD Regular U-100 Insulin) metoprolol tartrate 25 mg tablet 12.5 mg PO BID 02/06/22 02/14/22 History pantoprazole 40 mg tablet,delayed 40 mg PO DAILY 02/06/22 02/14/22 History release prazosin 2 mg capsule 2 mg PO HS 02/06/22 02/14/22 History tamsulosin 0.4 mg capsule 0.8 mg PO HS 02/06/22 02/14/22 History Past Med/Surg History Medical History (Updated 02/14/22 @ 19:46 by Willy Mace) Acute myocardial infarction 2020 s/p LAD stent Angina pectoris Asthma Atypical chest pain Bowel obstruction CAD (coronary artery disease) Depression DM type 2 (diabetes mellitus, type 2) Esophagitis on EGD, [facility], 2020 Head injury Hiatal hernia History of CVA (cerebrovascular accident) Hx SBO Hyperlipidemia Hypertension Iron deficiency anemia Peptic ulcer disease Pulmonary hypertension Sarcoidosis Skin cancer Syncope Tricuspid regurgitation Surgical History H/O exploratory laparotomy "05/31/2015 with lysis of adhesions, release of bowel obstruction, repair of incisional hernia" H/O ventral hernia repair History of back surgery S/P cardiac cath S/P coronary artery stent placement (05/07/13) "2000" Family History Mother , age 67 Lung cancer Father , age 68 Lung cancer Brother Stroke age 55 Social History Smoking Status: Unknown if ever smoked Hx Alcohol Use: No Hx Substance Use: No Preferred Language: Armenian Communication Ability: Effective Lead Pastor Required: No Beliefs That Will Affect Care: None Current Living Situation: Other Current Living Situation Comment: [facility] - [facility] Feels Safe at Home: Yes Assistive Devices: Cane Review of Systems Review of Systems: gen - no fevers or chills or infectious symptoms HENT - mild dysphagia and occasional odynophagia eyes - blurry vision - chronic neck - no pain typically, but pain with his chest pain episodes CV - recurrent chest pain episodes per the HPI; episodes of dizziness (chronic); occasional pre-syncope; was supposed to have 30-day event monitor a year ago - never had such pulm - dyspnea with chest pain episodes GI - some abdominal pain with eating; some nausea with chest pain; dysphagia; odynophagia - urinary hesitancy with poor stream musculo - no joint pains neuro - paresthesias hands/feet - chronic endo - DM - BSGs >150 (frequent) skin - no rash Physical Exam Physical Exam: gen - NAD, comfortable, a/o x 3 eyes - cataract shadows b/l, PERRL HENT - TMs clear b/l, nose clear, mouth with MMM and no lesions neck - no JVD, no lymph nodes or goiter heart - RRR, s1 s2, 2/6 systolic murmur LSB chest - no reproducible chest wall pain to palpation abd - soft, protuberant, scar midline lower abdomen, NT, BS+, no HSM lungs - CTA b/l ext - no edema, pulses 2+ b/l neuro - no facial droop; strength 5/5 x 4 exts; DTRs 2+ b/l vascular - right wrist without hematoma skin - no rash psych - a/o x 3 Results & Data Results & Data ([facility]) Vital Signs (Past 12 Hours) Vital Signs Temp Pulse Pulse Resp BP BP Pulse Ox 02/14/22 07:00 74 136/91 94 02/14/22 05:45 76 17 118/81 92 02/14/22 05:30 86 9 L 133/92 94 02/14/22 05:28 93 H 16 99/66 L 95 02/14/22 05:02 37.0 C 83 22 147/88 H 94 Laboratory Results Laboratory Results - last 24 hr 02/14/22 02/14/22 02/14/22 05:05 05:05 05:05 WBC 4.38 L RBC 4.26 L Hgb 11.9 L Hct 36.5 L MCV 85.7 MCH 27.9 MCHC 32.6 RDW Std Deviation 43.8 RDW Coeff of Eliana 14.1 Plt Count 230 MPV 7.8 Immature Gran % (Auto) 0.2 Neut % (Auto) 56.5 Lymph % (Auto) 32.2 [place] % (Auto) 8.4 Eos % (Auto) 2.5 Baso % (Auto) 0.2 Neut # (Auto) 2.47 Lymph # (Auto) 1.41 [place] # (Auto) 0.37 Eos # (Auto) 0.11 Baso # (Auto) 0.01 Immature Gran # (Auto) 0.01 Sodium 137 Potassium 3.8 Chloride 103 Carbon Dioxide 25 Anion Gap 9 BUN 19 Creatinine 1.13 Est Cr Clr Drug Dosing 126.3 Est GFR ( Amer) 82.6 Est GFR (Non-Af Amer) 71.3 BUN/Creatinine Ratio 16.8 Glucose 167 H Calcium 9.4 Magnesium 1.6 L Total Bilirubin 0.4 AST 18 ALT 18 Alkaline Phosphatase 66 Troponin I High Sens 94.8 H* D B-Natriuretic Peptide 8 Total Protein 6.8 Albumin 4.2 Globulin 2.6 Albumin/Globulin Ratio 1.6 Lipase 22 SARS-CoV-2, RNA, NAAT 02/14/22 02/14/22 08:05 08:15 WBC RBC Hgb Hct MCV MCH MCHC RDW Std Deviation RDW Coeff of Eliana Plt Count MPV Immature Gran % (Auto) Neut % (Auto) Lymph % (Auto) [place] % (Auto) Eos % (Auto) Baso % (Auto) Neut # (Auto) Lymph # (Auto) [place] # (Auto) Eos # (Auto) Baso # (Auto) Immature Gran # (Auto) Sodium Potassium Chloride Carbon Dioxide Anion Gap BUN Creatinine Est Cr Clr Drug Dosing Est GFR ( Amer) Est GFR (Non-Af Amer) BUN/Creatinine Ratio Glucose Calcium Magnesium Total Bilirubin AST ALT Alkaline Phosphatase Troponin I High Sens 111.2 H* B-Natriuretic Peptide Total Protein Albumin Globulin Albumin/Globulin Ratio Lipase SARS-CoV-2, RNA, NAAT NEGATIVE Diagnostic Findings Chest CTA 02/14/22 05:17 CT angio chest dissec wo/w con CLINICAL HISTORY: chest pain into back TECHNIQUE: Multidetector row helical CT of the chest was performed before and after injection of IV contrast. Coronal and sagittal reformations were obtained. Automated dose lowering techniques and/or adjustment according to patient size were utilized for this exam. CT DOSE: 684.60 mGy.cm Comparison: Comparison is made to CT chest 07/21/2021 FINDINGS: Lungs and pleura: Minimal atelectasis is noted in the dependent portion of the lungs. Heart and pericardium: Heart size is normal. No pericardial effusion. Vessels: No aortic dissection is seen. Mediastinum and chaitanya: Unremarkable. Chest wall and lower neck: Small thyroid nodules are noted which do not require follow-up by ACR criteria. Abdomen: A hiatal hernia is seen. There is an avidly enhancing focus in the left liver measuring 14 mm. Bones: A spinal stimulator is seen. IMPRESSION: 1. No evidence of aortic dissection. No intramural hematoma. 2. Avidly enhancing focus in the liver is favored to represent hemangioma or FNH, however if not previously evaluated, dedicated CT or MR liver protocol can be performed. ACT 112: Negative or not required by law. Electronically signed by: Bakari Novak M.D. 02/14/2022 8:10 AM EKG - 0900 - my reading - NSR, LVH, ST segment changes anteroseptal leads UNCHANGED from EKG done at correction earlier this am; NS ST changes inferior leads - chronic, unchanged Code Status & VTE Plan Code Status full PG Care Time/CCT Total # of Minutes Spent Total Time Spent with Patient: Total time spent is greater than 50% in coordination of care (as documented) at patient's floor/unit and/or counseling patient: Coding Level of Care Code INT OBSERVATION CARE 70M LVL 3 Diagnoses Chest pain R07.9 Elevated troponin R77.8 CAD (coronary artery disease) I25.10 Esophagitis K20.90 Hiatal hernia K44.9 Sarcoidosis D86.9 Diabetes mellitus E11.9 Hyperlipidemia E78.5 History of CVA (cerebrovascular accident) Z86.73 Tricuspid regurgitation I07.1 BPH w urinary obs/LUTS N40.1; N13.8
[2022-02-14] MEDS ORDERED: PANTOprazole 40 MG in SYRINGE 0 ML IV ONE (09:45)
--- NOTE | 2022-02-14 10:22 | Electrocardiogram Report ---
Test Reason : Blood Pressure : / mmHG Vent. Rate : 072 BPM Atrial Rate : 072 BPM P-R Int : 148 ms QRS Dur : 110 ms QT Int : 424 ms P-R-T Axes : 045 -01 -05 degrees QTc Int : 464 ms Normal sinus rhythm Incomplete right bundle branch block Voltage criteria for left ventricular hypertrophy Nonspecific T wave abnormality Prolonged QT Abnormal ECG When compared with ECG of 06-FEB-2022 16:20, No significant change was found Confirmed by Leonardo Larson ([id number]) on 02/14/2022 10:22:12 AM Referred By: REFERRED SELF Confirmed By:Leonardo Larson
[2022-02-14] MEDS ORDERED: NITROGLYCERIN SL 0.4 MG/TAB TAB SL PRN (10:46)
[2022-02-14] MEDS ORDERED: ALBUTEROL HFA 8 GM INHALER INH PRN (10:46)
[2022-02-14] MEDS ORDERED: MECLIZINE 12.5 MG TAB PO PRN (10:46)
[2022-02-14] MEDS ORDERED: FUROSEMIDE INJ 20 MG/2 ML VIAL IV ONE (11:08)
--- NOTE | 2022-02-14 11:17 | Cardiology Consultation ---
Date of Consultation February 14, 2022 History of Present Illness Reason for Consultation: Chest pain status post cardiac catheterization yesterday Requesting Physician: Patient's regular waterway traffic checker is Dr. Caro Attending Physician: Willy Mace History of Present Illness This is a 56-year-old prisoner who was cath yesterday in anticipation of evaluation for tricuspid valve disease. He notes that he has chest discomfort which he describes as central and stabbing-like that goes through to his posterior chest he has some neck discomfort that radiates down his left arm. He denies any shortness of breath with it. He looks rather comfortable with it. It can be worse with a deep breath. He does describe shortness of breath lying flat he also describes some shortness of breath and some chest discomfort with a deep breath. Denies any palpitations or fluttering or feeling his heart racing. Has a lower extremity edema. He does note increased abdominal distention, decreased appetite, and early satiety. He does have some difficulty swallowing and notes that at times food feels like it is getting stuck but has not actually gotten stuck when he is eating. He does note an occasional sour taste or bitter taste and dry mouth in the morning. The rest of a complete her systems otherwise negative Allergies Allergy/AdvReac Type Severity Reaction Status Date / Time lisinopril Allergy Severe ANAPHYLAXIS Verified 02/14/22 07:06 ibuprofen Allergy Intermediate HIVES Verified 02/14/22 07:06 morphine Allergy Intermediate HIVES Verified 02/14/22 07:06 capsaicin Allergy Unknown Unknown Verified 02/14/22 07:06 phenytoin Allergy Unknown Unknown Verified 02/14/22 07:06 Home Medications Medication Instructions Recorded Confirmed Type allopurinol 100 mg tablet 100 mg PO QAM 09/23/20 02/14/22 History aspirin 81 mg tablet,delayed 81 mg PO QAM 09/23/20 02/14/22 History release calcium carbonate 600 mg-vitamin 2 tab PO BID 09/23/20 02/14/22 History D3 5 mcg (200 unit) tablet finasteride 5 mg tablet 5 mg PO QAM 09/23/20 02/14/22 History rosuvastatin 20 mg tablet 20 mg PO HS 09/23/20 02/14/22 History valsartan 80 mg tablet 80 mg PO QAM 09/23/20 02/14/22 History ciclesonide 160 mcg/actuation 1 puff INHALATION BID 07/21/21 02/14/22 History aerosol inhaler (Alvesco) docusate sodium 100 mg capsule 200 mg PO BID 07/21/21 02/14/22 History meclizine 12.5 mg tablet 12.5 mg PO TID PRN #30 tab 07/24/21 02/14/22 Rx polyethylene glycol 3350 17 gram 17 g PO DAILY #1 btl 07/24/21 02/14/22 Rx oral powder packet (Miralax) albuterol sulfate 90 mcg/actuation 2 puff INHALATION QID PRN 02/06/22 02/14/22 History aerosol inhaler aluminum hydrox-magnesium carb 95 30 ml PO PCHS PRN 02/06/22 02/14/22 History mg-358 mg/15 mL oral suspension (Acid Gone Antacid) amlodipine 5 mg tablet 5 mg PO DAILY 02/06/22 02/14/22 History aripiprazole 2 mg tablet (Abilify) 2 mg PO DAILY 02/06/22 02/14/22 History duloxetine 60 mg capsule,delayed 60 mg PO BID 02/06/22 02/14/22 History release insulin glargine 100 unit/mL 11 unit SUBCUT DAILY 02/06/22 02/14/22 History subcutaneous solution insulin regular human 100 unit/mL 1 sliding scale dose SUBCUT 02/06/22 02/14/22 History injection solution (Novolin R USEASDIRECTD Regular U-100 Insulin) metoprolol tartrate 25 mg tablet 12.5 mg PO BID 02/06/22 02/14/22 History pantoprazole 40 mg tablet,delayed 40 mg PO DAILY 02/06/22 02/14/22 History release prazosin 2 mg capsule 2 mg PO HS 02/06/22 02/14/22 History tamsulosin 0.4 mg capsule 0.8 mg PO HS 02/06/22 02/14/22 History Patient History Medical History Acute myocardial infarction 2020 s/p LAD stent Angina pectoris Asthma Atypical chest pain Bowel obstruction CAD (coronary artery disease) Depression DM type 2 (diabetes mellitus, type 2) Esophagitis on EGD, [facility], 2020 Head injury Hiatal hernia History of CVA (cerebrovascular accident) Hx SBO Hyperlipidemia Hypertension Iron deficiency anemia Peptic ulcer disease Pulmonary hypertension Sarcoidosis Skin cancer Syncope Tricuspid regurgitation Surgical History H/O exploratory laparotomy "05/31/2015 with lysis of adhesions, release of bowel obstruction, repair of incisional hernia" H/O ventral hernia repair History of back surgery S/P cardiac cath S/P coronary artery stent placement (05/07/13) "2000" Family History Mother , age 67 Lung cancer Father , age 68 Lung cancer Brother Stroke age 55 Social History Smoking Status: Never smoker Hx Alcohol Use: No Hx Substance Use: No Preferred Language: Greenlandic Communication Ability: Effective Underwriter Mortgage Loan Required: No Beliefs That Will Affect Care: None Current Living Situation: Other Current Living Situation Comment: fdc - [facility] Feels Safe at Home: Yes Assistive Devices: Cane Results & Data ([facility]) Vital Signs (Past 12 Hours) Vital Signs Temp Pulse Pulse Resp BP BP Pulse Ox 02/14/22 09:00 65 12 142/94 H 97 02/14/22 07:00 74 136/91 94 02/14/22 05:45 76 17 118/81 92 02/14/22 05:30 86 9 L 133/92 94 02/14/22 05:28 93 H 16 99/66 L 95 02/14/22 05:02 37.0 C 83 22 147/88 H 94 He is awake alert and oriented x3 he is in no acute distress he looks his stated age HEENT 2+ carotid upstrokes nodes carotid bruits Lungs: Clear to auscultation bilaterally no rales rhonchi or wheezing Heart: regular rate and rhythm no appreciable murmurs rubs or gallops Abdomen: soft nontender, fully distended positive bowel sounds, tympanitic extremities: no clubbing cyanosis or edema Psychiatric: his affect appeared appropriate I reviewed his laboratory studies as well as catheterization report as well as his CAT scan of his chest and his echocardiogram done today IMPRESSIONS: 1 coronary artery disease status post angioplasty and stenting of the left anterior descending artery 2. Cardiac catheterization yesterday with the use of IVUS as well as FFR without evidence of significant restenosis 3. Normal LV systolic function without evidence of wall motion abnormalities rash having chest pain today in the ER 4. Mildly elevated troponin likely secondary to his catheterization and crossing the lesion in his LAD. 5. Significant tricuspid regurgitation with concern for early satiety and increased abdominal distention 6. No evidence of aortic dissection by CT scan 7. large hiatal hernia His EKG is unchanged. His troponin is likely related to the procedure itself i.e. his catheterization yesterday. The fact that he has had longstanding chest discomfort is reassuring that its not cardiac in etiology. His coronary anatomy is unchanged compared to his cardiac catheterization in 2020. Additionally he is having chest discomfort and has no wall motion abnormalities on his echo specifically known involving the LAD territory. Some of his symptoms could be related to severe tricuspid regurgitation and increased right atrial pressures. That may also be a reason for some of his early satiety and increased abdominal distention. I would add Lasix 20 mg daily starting today and see if by lowering his right atrial pressures and eliminating some of the fluid that may be in his abdomen we can improve his symptoms. Discussed with the hospitalist service we will aggressively treat his GI symptoms in light of his hiatal hernia. [facility] can [facility].
[2022-02-14] MEDS ORDERED: CARBOHYDRATES FOR HYPOGLYCEMIA PO PRN (11:30)
[2022-02-14] MEDS ORDERED: DEXTROSE 50% 50 ML SYRINGE IV PRN (11:30)
[2022-02-14] MEDS ORDERED: GLUCOSE 40% GEL 15 GM TUBE PO PRN (11:30)
[2022-02-14] MEDS ORDERED: GLUCAGON FOR INJ 1 MG VIAL IM PRN (11:30)
[2022-02-14] MEDS ORDERED: GLUCOSE 10 TABS/TUBE PO PRN (11:30)
[2022-02-14] MEDS: INSULIN ASPART PER UNIT SC SCH ×3 (12:53→20:51)
[2022-02-14] MEDS: ACETAMINOPHEN 325 MG TAB PO PRN ×2 (17:14→23:07)
[2022-02-14] MEDS: TAMSULOSIN HCL 0.4 MG CAP PO SCH (21:38)
[2022-02-14] MEDS: DULoxetine HCL 60 MG CAP PO SCH (21:38)
[2022-02-14] MEDS: METOPROLOL TARTRATE 25 MG TAB PO SCH (21:38)
[2022-02-14] MEDS: ROSUVASTATIN CALCIUM 20 MG TAB PO SCH (21:38)
[2022-02-14] MEDS: DOCUSATE SODIUM 100 MG CAP PO SCH (21:38)
[2022-02-14] MEDS: PANTOprazole 40 MG TAB PO SCH (21:38)
[2022-02-14] MEDS: SUCRALFATE 1 GM/10 ML UDC PO SCH (21:38)
[2022-02-15] MEDS ORDERED: ALUMINUM/MAGNESIUM/SIMETH (MAALOX MAX) 30 ML UDC PO STA (00:34)
[2022-02-15 07:29] LABS: Calcium 9.1 mg/dl (8.5-10.1); Creatinine Clr Calc Pharmacy 79.8 ml/min; Est GFR (African American) 83.5 ml/min; Magnesium 1.9 mg/dl (1.7-2.4); Potassium 3.9 mmol/L (3.5-5.1)
[2022-02-15 07:42] LABS: Ferritin 45.5 ng/ml (8-388)
[2022-02-15] MEDS: FLUTICASONE FUROATE 200MCG 14 PUFFS/INHALER INH SCH (07:59)
[2022-02-15] MEDS: POLYETHYLENE (MIRALAX) 17 GM PACK PO SCH (07:59)
[2022-02-15] MEDS: DULoxetine HCL 60 MG CAP PO SCH ×2 (08:03→21:44)
[2022-02-15] MEDS: METOPROLOL TARTRATE 25 MG TAB PO SCH ×2 (08:03→21:49)
[2022-02-15] MEDS: SUCRALFATE 1 GM/10 ML UDC PO SCH ×4 (08:04→21:51)
[2022-02-15] MEDS: allopurinoL 100 MG TAB PO SCH (08:04)
[2022-02-15] MEDS: FINASTERIDE 5 MG TAB PO SCH (08:05)
[2022-02-15] MEDS: ARIPIprazole 1 MG/ML ORAL SOLN 150 ML BTL PO SCH (08:05)
[2022-02-15] MEDS: amLODIPine BESYLATE 5 MG TAB PO SCH (08:05)
[2022-02-15] MEDS: PANTOprazole 40 MG TAB PO SCH ×2 (08:06→21:47)
[2022-02-15] MEDS: ASPIRIN 81 MG ECTAB PO SCH (08:06)
[2022-02-15] MEDS: FUROSEMIDE 20 MG TAB PO SCH (08:06)
[2022-02-15] MEDS: INSULIN GLARGINE SOLOSTAR 100 UNITS/ML 3 ML PEN SQ SCH (08:07)
[2022-02-15] MEDS: DOCUSATE SODIUM 100 MG CAP PO SCH ×2 (08:08→21:48)
[2022-02-15] MEDS: INSULIN ASPART PER UNIT SC SCH ×4 (08:14→21:52)
--- NOTE | 2022-02-15 10:04 | Electrocardiogram Report ---
Test Reason : Blood Pressure : / mmHG Vent. Rate : 087 BPM Atrial Rate : 087 BPM P-R Int : 140 ms QRS Dur : 104 ms QT Int : 386 ms P-R-T Axes : 050 002 004 degrees QTc Int : 464 ms Poor data quality, interpretation may be adversely affected Normal sinus rhythm Incomplete right bundle branch block Voltage criteria for left ventricular hypertrophy Nonspecific T wave abnormality Abnormal ECG When compared with ECG of 06-FEB-2022 16:20, No significant change was found Confirmed by Leonardo Larson ([id number]) on 02/15/2022 10:04:30 AM Referred By: REFERRED SELF Confirmed By:Leonardo Larson
[2022-02-15] MEDS: ROSUVASTATIN CALCIUM 20 MG TAB PO SCH (21:45)
[2022-02-15] MEDS: TAMSULOSIN HCL 0.4 MG CAP PO SCH (21:46)
--- NOTE | 2022-02-15 22:08 | Hospitalist Progress Note ---
Date of Service February 15, 2022 Assessment & Plan (1) Epigastric abdominal pain: Plan: chest pain resolved - now having upper abd pain with esophageal symptoms as well. this is despite PPI twice daily + carafate qid. downgrade to clears. check RUQ u/s - r/o biliary cause of pain. he has a known, large hiatal hernia and has had egd-confirmed esophagitis in 2020 by [facility]. will keep NPO after MN and consult [facility] in am. ?need for repeat EGD? (2) Chest pain: Plan: Given his cardiac cath findings on 02/13 (see HPI) it is unlikely that his presenting symptoms are from ischemia. I consulted Dr Leonardo Larson from [facility] who recommended an urgent limited echo to check LV wall motion. LV EF was preserved, and there were no wall motion abnormalities. EKG findings, known cardiac cath findings, and unchanged echo also support non- ischemic etiology for his symptoms. Further, there is no evidence for aortic dissection, PE, or clinical evidence of pericarditis. Appreciate Dr Larson's consultation. (3) Elevated troponin: Plan: Likely 2nd to cardiac cath performed on 02/13; and in particular performing FFR across the mid-LAD. ischemia unlikely. (4) Tricuspid regurgitation: Plan: Moderate on echo 2020. [facility] showed severe TR. He has been referred to the valve clinic at [facility]. Dr Larson advised once daily PO lasix in the event he has elevated RA pressures from the severe TR leading to abdominal symptoms from such. (5) CAD (coronary artery disease): Plan: Known CAD. h/o acute OH 2000 s/p LAD stent. s/p cardiac cath yesterday at [facility]. 50% mid-LAD lesion (in-stent stenosis). FFR 0.85 thus ischemia unlikely. Repeat echo yesterday with normal LV wall motion. Continue statin. Continue beta carmen. Continue asa. Continue amlodipine. (6) Esophagitis: Plan: EGD/colonoscopy performed 05/2021 for anemia by Augustine Romero. EGD showed hiatal hernia with esophagitis. Upper GI pathology could be the cause of his symptoms. Increased PPI to twice daily, and added carafate 1gm QID. Despite such still with symptoms. see #1 above. (7) Hiatal hernia: Plan: Large. Could be contributing to episodes of chest pain. See #5 above. (8) Sarcoidosis: Plan: No evidence of active disease on CT chest imaging. (9) Diabetes mellitus: Plan: Last a1c was fall 2020 -- 7.1%. Repeat pending. Cont lantus. Cont novolog SSI. (10) Hyperlipidemia: Plan: Cont statin. (11) History of CVA (cerebrovascular accident): Plan: Noted. Cont asa for secondary prevention. (12) BPH w urinary obs/LUTS: Plan: Cont alpha carmen (was taking flomax + prazosin - stopped latter - likely little benefit to dual alpha carmen therapy). Cont finasteride. Plan: no discharge today Admission and Anticipated Discharge Date Admission Date: February 14, 2022 Subjective tele overnight wnl he states that "all night" he had upper abdominal discomfort chest pain resolved no dyspnea but now having the abdominal pain he is also having odynophagia and had emesis x 2 about 30 min following breakfast and following lunch nursing flow sheets show he consumed 100% of his breakfast/lunch and nursing states he has not had emesis to their knowledge had small BM this am - firm, hard Review of Systems Review of Systems: gen - no fevers or chills cv - chest pain resolved; no orthopnea pulm - no cough; dyspnea resolved GI - no BRBPR or melena with his stool today Physical Exam Physical Exam: gen - tardive dyskinetic movements of mouth/tongue?; NAD, awake, alert mouth - MMM neck - no JVD heart- RRR, s1 s2, 2/6 systolic murmur LSB lungs - CTA b/l abd - soft, tender RUQ and high epigastric area, BS+, no HSM skin - large midline scar abd wall ext - no edema, pulses 2+ b /l Results & Data Results & Data ([facility]) Vital Signs (Past 12 Hours) Vital Signs Temp Pulse Pulse Resp BP Pulse Ox 02/15/22 19:43 36.6 C 80 18 149/96 H 92 02/15/22 16:00 36.8 C 89 20 138/78 93 02/15/22 15:31 88 Laboratory Results Laboratory Results - last 24 hr 02/15/22 02/15/22 02/15/22 06:25 06:25 07:33 Sodium 135 L Potassium 3.9 Chloride 101 Carbon Dioxide 25 Anion Gap 9 BUN 19 Creatinine 1.12 Est Cr Clr Drug Dosing 79.8 Est GFR ( Amer) 83.5 Est GFR (Non-Af Amer) 72.0 BUN/Creatinine Ratio 17.0 Glucose 140 H POC Glucose 152 H Estimat Average Glucose Pending Hemoglobin A1c Pending Calcium 9.1 Magnesium 1.9 Ferritin 45.5 02/15/22 02/15/22 02/15/22 11:49 16:18 20:11 Sodium Potassium Chloride Carbon Dioxide Anion Gap BUN Creatinine Est Cr Clr Drug Dosing Est GFR ( Amer) Est GFR (Non-Af Amer) BUN/Creatinine Ratio Glucose POC Glucose 145 H 110 H 115 H Estimat Average Glucose Hemoglobin A1c Calcium Magnesium Ferritin PG Care Time/CCT Total # of Minutes Spent Total Time Spent with Patient: Total time spent is greater than 50% in coordination of care (as documented) at patient's floor/unit and/or counseling patient: Coding Level of Care Code 08190 Subseq Obs Care Lvl 2 Diagnoses Chest pain R07.9 Elevated troponin R77.8 Tricuspid regurgitation I07.1 Cardiac valve disease etiology: etiology unspecified CAD (coronary artery disease) I25.10 Esophagitis K20.90 Hiatal hernia K44.9 Sarcoidosis D86.9 Diabetes mellitus E11.9 Hyperlipidemia E78.5 History of CVA (cerebrovascular accident) Z86.73 BPH w urinary obs/LUTS N40.1; N13.8 Epigastric abdominal pain R10.13 (1) Tricuspid regurgitation Cardiac valve disease etiology: etiology unspecified Qualified Code(s): I07.1 - Rheumatic tricuspid insufficiency
[2022-02-16 06:52] LABS: Albumin Globulin Ratio 1.5 (0.9-2); Albumin Level 4.2 gm/dl (3.4-5.0); Bilirubin,Total 0.4 mg/dl (0.2-1.0); Calcium 9.1 mg/dl (8.5-10.1); Creatinine Clr Calc Pharmacy 83.8 ml/min; Est GFR (African American) 88.2 ml/min; Est GFR (Non-African American) 76.1 ml/min; Globulin 2.8 gm/dl (2.5-4.0)
[2022-02-16 07:29] LABS: Estimated Average Glucose 180 mg/dl; Hemoglobin A1C 7.9 % (4.5-5.6)
--- NOTE | 2022-02-16 07:32 | Ultrasound Report ---
US gallbladder CLINICAL HISTORY: RUQ abd pain, emesis; eval stones, etc COMPARISON STUDY: CT of the abdomen and pelvis November 21, 2020. Right upper quadrant ultrasound [facility] 2015. FINDINGS: Hepatic echogenicity is increased. There is no biliary ductal dilatation. Common bile duct measures 3 mm in caliber. No gallstones are identified. There is no gallbladder wall thickening. No s onographic Munoz sign was elicited. There is possible sludge within the gallbladder. Pancreas is lar gaston obscured. There is no right hydronephrosis. IMPRESSION: 1. No gallstones or biliary ductal dilatation. Possible sludge within the gallbladder. No evidence fo r acute cholecystitis. 2. Hepatic steatosis. 3. Largely obscured pancreas. ACT 112: Negative or not required by law. Electronically signed by: Ferny England M.D. 02/16/2022 7:30 AM
[2022-02-16] MEDS: INSULIN ASPART PER UNIT SC SCH ×4 (08:16→21:30)
[2022-02-16] MEDS: INSULIN GLARGINE SOLOSTAR 100 UNITS/ML 3 ML PEN SQ SCH (08:17)
[2022-02-16] MEDS: ACETAMINOPHEN 325 MG TAB PO PRN ×2 (08:20→17:12)
[2022-02-16] MEDS: allopurinoL 100 MG TAB PO SCH (08:21)
[2022-02-16] MEDS: FUROSEMIDE 20 MG TAB PO SCH (08:21)
[2022-02-16] MEDS: ASPIRIN 81 MG ECTAB PO SCH (08:21)
[2022-02-16] MEDS: FINASTERIDE 5 MG TAB PO SCH (08:21)
[2022-02-16] MEDS: DOCUSATE SODIUM 100 MG CAP PO SCH ×2 (08:22→20:57)
[2022-02-16] MEDS: PANTOprazole 40 MG TAB PO SCH ×2 (08:22→20:57)
[2022-02-16] MEDS: DULoxetine HCL 60 MG CAP PO SCH ×2 (08:22→20:57)
[2022-02-16] MEDS: ARIPIprazole 1 MG/ML ORAL SOLN 150 ML BTL PO SCH (08:22)
[2022-02-16] MEDS: amLODIPine BESYLATE 5 MG TAB PO SCH (08:23)
[2022-02-16] MEDS: METOPROLOL TARTRATE 25 MG TAB PO SCH ×2 (08:25→20:58)
[2022-02-16] MEDS: FLUTICASONE FUROATE 200MCG 14 PUFFS/INHALER INH SCH (08:25)
[2022-02-16] MEDS: POLYETHYLENE (MIRALAX) 17 GM PACK PO SCH (08:26)
[2022-02-16] MEDS: SUCRALFATE 1 GM/10 ML UDC PO SCH ×4 (08:26→20:58)
--- NOTE | 2022-02-16 08:55 | Gastrointestinal Consultation ---
Date of Consultation February 16, 2022 Assessment & Plan (1) Chest pain: 56 year old male with history of CAD s/p acute IA with stenting in 2000 ([facility]), T2DM, asthma, large hiatal hernia with prior esophagitis, h/o sarcoid, and tricuspid regurgitation. Patient presents with the acute onset of substernal chest pain radiating to the left upper chest, left neck, left arm, and into the back s/p cardiac evaluation including cardiac cath last week which was unremarkable with persistent symptoms, including abd pain, nausea, vomiting. Unfortunately, EGD this AM was not able to be completed as he had clear liquids between [id number] Can have UGI series today Strict NPO after midnight Plan for EGD tomorrow Thank you for allowing us to participate in the care of this patient. Please call with any acute changes, questions or concerns. Please see addendum below with additional recommendation from my supervising physician. Supervising Physician Co-Signing Physician Notes I saw and evaluated the patient. We were consulted for evaluation of chest pain with a negative cardiac work-up. The patient's history is notable for a large hiatal hernia. We will proceed with upper endoscopy at next available time to b germaine assess the hiatal hernia. We would also recommend an upper GI series. Should the patient have evidence of an intrathoracic stomach kidney get benefit from evaluation at a tertiary care center where a hiatal hernia repair can be considered. Physical examination lip Smacking noted suggestive of tardive dyskinesia no abdominal tenderness Upper GI series Upper endoscopy at next available Please call with any questions or concerns History of Present Illness Reason for Consultation: chest pain, negative cardiac workup Requesting Physician: Nakita Attending Physician: Willy Mace History of Present Illness 56 year old male with history of CAD s/p acute IA with stenting in 2000 ([facility]), T2DM, asthma, large hiatal hernia with prior esophagitis, h/o sarcoid, and tricuspid regurgitation. Patient presents with the acute onset of substernal chest pain radiating to the left upper chest, left neck, left arm, and into the back s/p cardiac evaluation including cardiac cath last week which was unremarkable. GI was asked to evaluate for a GI source of his symptoms. Notes he has upper abd discomfort, nausea/vomiting. No black or bloody emesis. Some GERD. Moving bowels. No black or bloody stools. He is ordered NPO status but tells me he had some ice and water this AM around 0700. Unable to tell me how much. ABD US 2021: No gallstones or biliary ductal dilatation. Possible sludge within the gallbladder. No evidence for acute cholecystitis. Hepatic steatosis. Largely obscured pancreas. EGD Colonoscopy Allergies Allergy/AdvReac Type Severity Reaction Status Date / Time lisinopril Allergy Severe ANAPHYLAXIS Verified 02/14/22 07:06 ibuprofen Allergy Intermediate HIVES Verified 02/14/22 07:06 morphine Allergy Intermediate HIVES Verified 02/14/22 07:06 capsaicin Allergy Unknown Unknown Verified 02/14/22 07:06 phenytoin Allergy Unknown Unknown Verified 02/14/22 07:06 Home Medications Medication Instructions Recorded Confirmed Type allopurinol 100 mg tablet 100 mg PO QAM 09/23/20 02/14/22 History aspirin 81 mg tablet,delayed 81 mg PO QAM 09/23/20 02/14/22 History release calcium carbonate 600 mg-vitamin 2 tab PO BID 09/23/20 02/14/22 History D3 5 mcg (200 unit) tablet finasteride 5 mg tablet 5 mg PO QAM 09/23/20 02/14/22 History rosuvastatin 20 mg tablet 20 mg PO HS 09/23/20 02/14/22 History valsartan 80 mg tablet 80 mg PO QAM 09/23/20 02/14/22 History ciclesonide 160 mcg/actuation 1 puff INHALATION BID 07/21/21 02/14/22 History aerosol inhaler (Alvesco) docusate sodium 100 mg capsule 200 mg PO BID 07/21/21 02/14/22 History meclizine 12.5 mg tablet 12.5 mg PO TID PRN #30 tab 07/24/21 02/14/22 Rx polyethylene glycol 3350 17 gram 17 g PO DAILY #1 btl 07/24/21 02/14/22 Rx oral powder packet (Miralax) albuterol sulfate 90 mcg/actuation 2 puff INHALATION QID PRN 02/06/22 02/14/22 History aerosol inhaler aluminum hydrox-magnesium carb 95 30 ml PO PCHS PRN 02/06/22 02/14/22 History mg-358 mg/15 mL oral suspension (Acid Gone Antacid) amlodipine 5 mg tablet 5 mg PO DAILY 02/06/22 02/14/22 History aripiprazole 2 mg tablet (Abilify) 2 mg PO DAILY 02/06/22 02/14/22 History duloxetine 60 mg capsule,delayed 60 mg PO BID 02/06/22 02/14/22 History release insulin glargine 100 unit/mL 11 unit SUBCUT DAILY 02/06/22 02/14/22 History subcutaneous solution insulin regular human 100 unit/mL 1 sliding scale dose SUBCUT 02/06/22 02/14/22 History injection solution (Novolin R USEASDIRECTD Regular U-100 Insulin) metoprolol tartrate 25 mg tablet 12.5 mg PO BID 02/06/22 02/14/22 History pantoprazole 40 mg tablet,delayed 40 mg PO DAILY 02/06/22 02/14/22 History release prazosin 2 mg capsule 2 mg PO HS 02/06/22 02/14/22 History tamsulosin 0.4 mg capsule 0.8 mg PO HS 02/06/22 02/14/22 History Patient History Medical History Acute myocardial infarction 2020 s/p LAD stent Angina pectoris Asthma Atypical chest pain Bowel obstruction CAD (coronary artery disease) Depression DM type 2 (diabetes mellitus, type 2) Encounter for pre-operative examination Esophagitis on EGD, [facility], 2020 Head injury Hiatal hernia History of CVA (cerebrovascular accident) Hx SBO Hyperlipidemia Hypertension Iron deficiency anemia Peptic ulcer disease Pulmonary hypertension Sarcoidosis Skin cancer Syncope Tricuspid regurgitation Surgical History H/O exploratory laparotomy "05/31/2015 with lysis of adhesions, release of bowel obstruction, repair of incisional hernia" H/O ventral hernia repair History of back surgery S/P cardiac cath S/P coronary artery stent placement (05/07/13) "2000" Family History Mother , age 67 Lung cancer Father , age 68 Lung cancer Brother Stroke age 55 Social History Smoking Status: Unknown if ever smoked Hx Alcohol Use: No Hx Substance Use: No Preferred Language: Malay Communication Ability: Effective Pensionholder Information Clerk Required: No Beliefs That Will Affect Care: None Current Living Situation: Other Current Living Situation Comment: correction - [facility] Feels Safe at Home: Yes Assistive Devices: Cane Review of Systems Review of Systems: All systems reviewed & are unremarkable except as noted in HPI & below Physical Exam Constitutional: WD/WN, vitals as above Neck: trachea midline, no thyromegaly Respiratory: normal respiratory effort, lungs clear to auscultation Cardiovascular: Rate/Rhythm: regular rate and regular rhythm Gastrointestinal (Abdomen): normal bowel sounds, soft, nontender, no hepatosplenomegaly Skin: no rashes, warm and dry Results & Data ([facility]) Vital Signs (Past 12 Hours) Vital Signs Temp Pulse Pulse Resp BP BP Pulse Ox 02/16/22 08:00 36.8 C 76 18 163/99 H 115/69 95 02/16/22 04:17 36.4 C L 85 18 124/57 L 97 02/15/22 23:47 36.6 C 79 18 124/83 97 02/15/22 22:30 86 Laboratory Results 02/16/22 02/16/22 02/15/22 Range/Units 07:34 05:45 20:11 Sodium 135 L (136-145) mmol/L Potassium 4.0 (3.5-5.1) mmol/L Chloride 101 (98-107) mmol/L Carbon Dioxide 25 (21-32) mmol/L Anion Gap 9 (3-11) BUN 16 (6-23) mg/dl Creatinine 1.07 (0.6-1.4) mg/dl Est Cr Clr Drug Dosing 83.8 ml/min Est GFR ( Amer) 88.2 ml/min Est GFR (Non-Af Amer) 76.1 ml/min BUN/Creatinine Ratio 15.0 (10-20) Glucose 136 H (70-99(Fasting)) mg/dl POC Glucose 140 H 115 H (70-99) mg/dl Estimat Average Glucose mg/dl Hemoglobin A1c (4.5-5.6) % Calcium 9.1 (8.5-10.1) mg/dl Total Bilirubin 0.4 (0.2-1.0) mg/dl AST 17 (13-39) U/L ALT 16 (7-52) U/L Alkaline Phosphatase 70 (34-104) U/L Total Protein 7.0 (6.0-8.3) gm/dl Albumin 4.2 (3.4-5.0) gm/dl Globulin 2.8 (2.5-4.0) gm/dl Albumin/Globulin Ratio 1.5 (0.9-2) 02/15/22 02/15/22 02/15/22 Range/Units 16:18 11:49 06:25 Sodium (136-145) mmol/L Potassium (3.5-5.1) mmol/L Chloride (98-107) mmol/L Carbon Dioxide (21-32) mmol/L Anion Gap (3-11) BUN (6-23) mg/dl Creatinine (0.6-1.4) mg/dl Est Cr Clr Drug Dosing ml/min Est GFR ( Amer) ml/min Est GFR (Non-Af Amer) ml/min BUN/Creatinine Ratio (10-20) Glucose (70-99(Fasting)) mg/dl POC Glucose 110 H 145 H (70-99) mg/dl Estimat Average Glucose 180 mg/dl Hemoglobin A1c 7.9 H (4.5-5.6) % Calcium (8.5-10.1) mg/dl Total Bilirubin (0.2-1.0) mg/dl AST (13-39) U/L ALT (7-52) U/L Alkaline Phosphatase (34-104) U/L Total Protein (6.0-8.3) gm/dl Albumin (3.4-5.0) gm/dl Globulin (2.5-4.0) gm/dl Albumin/Globulin Ratio (0.9-2) Diagnostic Findings 02/16/22 02/16/22 02/15/22 Range/Units 07:34 05:45 20:11 Sodium 135 L (136-145) mmol/L Potassium 4.0 (3.5-5.1) mmol/L Chloride 101 (98-107) mmol/L Carbon Dioxide 25 (21-32) mmol/L Anion Gap 9 (3-11) BUN 16 (6-23) mg/dl Creatinine 1.07 (0.6-1.4) mg/dl Est Cr Clr Drug Dosing 83.8 ml/min Est GFR ( Amer) 88.2 ml/min Est GFR (Non-Af Amer) 76.1 ml/min BUN/Creatinine Ratio 15.0 (10-20) Glucose 136 H (70-99(Fasting)) mg/dl POC Glucose 140 H 115 H (70-99) mg/dl Estimat Average Glucose mg/dl Hemoglobin A1c (4.5-5.6) % Calcium 9.1 (8.5-10.1) mg/dl Total Bilirubin 0.4 (0.2-1.0) mg/dl AST 17 (13-39) U/L ALT 16 (7-52) U/L Alkaline Phosphatase 70 (34-104) U/L Total Protein 7.0 (6.0-8.3) gm/dl Albumin 4.2 (3.4-5.0) gm/dl Globulin 2.8 (2.5-4.0) gm/dl Albumin/Globulin Ratio 1.5 (0.9-2) 02/15/22 02/15/22 02/15/22 Range/Units 16:18 11:49 06:25 Sodium (136-145) mmol/L Potassium (3.5-5.1) mmol/L Chloride (98-107) mmol/L Carbon Dioxide (21-32) mmol/L Anion Gap (3-11) BUN (6-23) mg/dl Creatinine (0.6-1.4) mg/dl Est Cr Clr Drug Dosing ml/min Est GFR ( Amer) ml/min Est GFR (Non-Af Amer) ml/min BUN/Creatinine Ratio (10-20) Glucose (70-99(Fasting)) mg/dl POC Glucose 110 H 145 H (70-99) mg/dl Estimat Average Glucose 180 mg/dl Hemoglobin A1c 7.9 H (4.5-5.6) % Calcium (8.5-10.1) mg/dl Total Bilirubin (0.2-1.0) mg/dl AST (13-39) U/L ALT (7-52) U/L Alkaline Phosphatase (34-104) U/L Total Protein (6.0-8.3) gm/dl Albumin (3.4-5.0) gm/dl Globulin (2.5-4.0) gm/dl Albumin/Globulin Ratio (0.9-2) (1) Chest pain Chest pain type: unspecified Qualified Code(s): R07.9 - Chest pain, unspecified
--- NOTE | 2022-02-16 09:12 | Anesthesiology Consultation ---
Date of Service February 16, 2022 Assessment & Plan (1) Encounter for pre-operative examination: Chart Review Chart Review: Acceptable Risk for Surgery, Patient NOT seen in Pre Admission Testing and business mail entry clerk initiated Consults Requested none Proposed Anesthesia Anesthesia Type: MAC History Surgery Operation Date: 02/16/22 17:15 Proposed Procedures p Esophagogastroduodenoscopy Dr Tyler Scott, DO Height/Weight Height: 5 ft 9 in Weight: 90.8 kg Allergies Allergy/AdvReac Type Severity Reaction Status Date / Time lisinopril Allergy Severe ANAPHYLAXIS Verified 02/14/22 07:06 ibuprofen Allergy Intermediate HIVES Verified 02/14/22 07:06 morphine Allergy Intermediate HIVES Verified 02/14/22 07:06 capsaicin Allergy Unknown Unknown Verified 02/14/22 07:06 phenytoin Allergy Unknown Unknown Verified 02/14/22 07:06 Medications Home Medications Medication Instructions Recorded Confirmed Last Taken allopurinol 100 mg tablet 100 mg PO QAM 09/23/20 02/14/22 02/06/22 aspirin 81 mg tablet,delayed 81 mg PO QAM 09/23/20 02/14/22 02/06/22 release calcium carbonate 600 mg-vitamin 2 tab PO BID 09/23/20 02/14/22 02/06/22 06:30 D3 5 mcg (200 unit) tablet finasteride 5 mg tablet 5 mg PO QAM 09/23/20 02/14/22 02/06/22 rosuvastatin 20 mg tablet 20 mg PO HS 09/23/20 02/14/22 02/05/22 valsartan 80 mg tablet 80 mg PO QAM 09/23/20 02/14/22 02/06/22 ciclesonide 160 mcg/actuation 1 puff INHALATION BID 07/21/21 02/14/22 Unknown aerosol inhaler (Alvesco) docusate sodium 100 mg capsule 200 mg PO BID 07/21/21 02/14/22 02/06/22 06:30 meclizine 12.5 mg tablet 12.5 mg PO TID PRN #30 tab 07/24/21 02/14/22 Unknown polyethylene glycol 3350 17 gram 17 g PO DAILY #1 btl 07/24/21 02/14/22 Unknown oral powder packet (Miralax) albuterol sulfate 90 mcg/actuation 2 puff INHALATION QID PRN 02/06/22 02/14/22 Unknown aerosol inhaler aluminum hydrox-magnesium carb 95 30 ml PO PCHS PRN 02/06/22 02/14/22 Unknown mg-358 mg/15 mL oral suspension (Acid Gone Antacid) amlodipine 5 mg tablet 5 mg PO DAILY 02/06/22 02/14/22 02/06/22 aripiprazole 2 mg tablet (Abilify) 2 mg PO DAILY 02/06/22 02/14/22 02/06/22 duloxetine 60 mg capsule,delayed 60 mg PO BID 02/06/22 02/14/22 02/06/22 06:30 release insulin glargine 100 unit/mL 11 unit SUBCUT DAILY 02/06/22 02/14/22 02/06/22 subcutaneous solution insulin regular human 100 unit/mL 1 sliding scale dose SUBCUT 02/06/22 02/14/22 02/06/22 injection solution (Novolin R USEASDIRECTD Regular U-100 Insulin) metoprolol tartrate 25 mg tablet 12.5 mg PO BID 02/06/22 02/14/22 02/06/22 06:30 pantoprazole 40 mg tablet,delayed 40 mg PO DAILY 02/06/22 02/14/22 02/06/22 release prazosin 2 mg capsule 2 mg PO HS 02/06/22 02/14/22 02/05/22 tamsulosin 0.4 mg capsule 0.8 mg PO 02/06/22 02/14/22 02/05/22 Active Medications Generic Name Dose Route Start Last Admin Trade Name Freq PRN Reason Stop Dose Admin Acetaminophen 650 mg 02/14/22 10:46 02/16/22 08:20 Acetaminophen 325 Mg Tab PO 03/16/22 10:45 650 mg Q4H PRN Administration Pain or Fever Allopurinol 100 mg 02/15/22 09:00 02/16/22 08:21 Allopurinol 100 Mg Tab PO 03/17/22 08:59 100 mg QAM LIN Administration Amlodipine Besylate 5 mg 02/15/22 09:00 02/16/22 08:23 Amlodipine Besylate 5 Mg Tab PO 03/17/22 08:59 5 mg DAILY LIN Administration Aripiprazole 2 mg 02/15/22 09:00 02/16/22 08:22 Aripiprazole 1 Mg/Ml Oral Soln 150 Ml Btl PO 03/17/22 08:59 2 mg DAILY LIN Administration Aspirin 81 mg 02/15/22 09:00 02/16/22 08:21 Aspirin 81 Mg Ectab PO 03/17/22 08:59 81 mg QAM LIN Administration Docusate Sodium 200 mg 02/14/22 21:00 02/16/22 08:22 Docusate Sodium 100 Mg Cap PO 03/16/22 20:59 200 mg BID LIN Administration Duloxetine HCl 60 mg 02/14/22 21:00 02/16/22 08:22 Duloxetine Hcl 60 Mg Cap PO 03/16/22 20:59 60 mg BID LIN Administration Finasteride 5 mg 02/15/22 09:00 02/16/22 08:21 Finasteride 5 Mg Tab PO 03/17/22 08:59 5 mg QAM LIN Administration Fluticasone Furoate 1 puffs 02/15/22 09:00 02/16/22 08:25 Fluticasone Furoate 200mcg 14 Puffs/Inhaler INH 03/17/22 08:59 1 puffs DAILY LIN Administration Furosemide 20 mg 02/15/22 09:00 02/16/22 08:21 Furosemide 20 Mg Tab PO 03/17/22 08:59 20 mg QAM LIN Administration Insulin Aspart 0 units 02/14/22 11:30 02/16/22 08:16 Insulin Aspart Per Unit SC 03/16/22 11:29 1 units ACHS LIN Administration Insulin Glargine 11 units 02/15/22 09:00 02/16/22 08:17 Insulin Glargine Solostar 100 Units/Ml 3 Ml Pen SQ 03/17/22 08:59 11 units DAILY LIN Administration Metoprolol Tartrate 12.5 mg 02/14/22 21:00 02/16/22 08:25 Metoprolol Tartrate 25 Mg Tab PO 03/16/22 20:59 12.5 mg BID LIN Administration Pantoprazole Sodium 40 mg 02/14/22 21:00 02/16/22 08:22 Pantoprazole 40 Mg Tab PO 03/16/22 20:59 40 mg BID LIN Administration Polyethylene Glycol 17 gm 02/15/22 09:00 02/16/22 08:26 Polyethylene (Miralax) 17 Gm Pack PO 03/17/22 08:59 17 gm DAILY LIN Administration Rosuvastatin Calcium 20 mg 02/14/22 21:00 02/15/22 21:45 Rosuvastatin Calcium 20 Mg Tab PO 03/16/22 20:59 20 mg HS LIN Administration Sucralfate 1 gm 02/14/22 21:00 02/16/22 08:26 Sucralfate 1 Gm/10 Ml Udc PO 03/16/22 20:59 1 gm QID LIN Administration Tamsulosin HCl 0.8 mg 02/14/22 21:00 02/15/22 21:46 Tamsulosin Hcl 0.4 Mg Cap PO 03/16/22 20:59 0.8 mg HS LIN Administration Past Medical History Medical History Acute myocardial infarction 2020 s/p LAD stent Angina pectoris Asthma Atypical chest pain Bowel obstruction CAD (coronary artery disease) Depression DM type 2 (diabetes mellitus, type 2) Encounter for pre-operative examination Esophagitis on EGD, [facility], 2020 Head injury Hiatal hernia History of CVA (cerebrovascular accident) Hx SBO Hyperlipidemia Hypertension Iron deficiency anemia Peptic ulcer disease Pulmonary hypertension Sarcoidosis Skin cancer Syncope Tricuspid regurgitation Past Family History Family History Mother , age 67 Lung cancer Father , age 68 Lung cancer Brother Stroke age 55 Past Surgical History Surgical History H/O exploratory laparotomy "05/31/2015 with lysis of adhesions, release of bowel obstruction, repair of incisional hernia" H/O ventral hernia repair History of back surgery S/P cardiac cath S/P coronary artery stent placement (05/07/13) "2000" Social History Smoking Status: Unknown if ever smoked Hx Alcohol Use: No Hx Substance Use: No substance use type: does not use Physical Exam Vital Signs Last Vital Signs Temp 36.8 C 02/16/22 08:00 Pulse 103 H 02/16/22 08:00 Resp 18 02/16/22 08:00 BP 163/99 H 02/16/22 08:00 Pulse Ox 95 02/16/22 08:00 Testing Laboratory Results 02/14/22 05:05 02/16/22 05:45 Hemoglobin A1c 7.9 % (4.5-5.6) H 02/15/22 06:25 02/16/22 07:34 POC Glucose 140 H Electrocardiogram Date: 02/14/22 Normal sinus rhythm Incomplete right bundle branch block Voltage criteria for left ventricular hypertrophy Nonspecific T wave abnormality Prolonged QT Abnormal ECG When compared with ECG of 06-FEB-2022 16:20, No significant change was found Confirmed by Leonardo Larson ([id number]) on 02/14/2022 10:22:12 AM Chest X-Ray Date: 02/06/22 IMPRESSION: 1. No acute cardiopulmonary findings. No change in appearance of the chest. 2. Hiatal hernia. Echocardiogram Date: 02/14/22 EF: 55-60% LV Function: normal RWMA: + none
--- NOTE | 2022-02-16 13:51 | Fluoroscopy Report ---
[place] GI series CLINICAL HISTORY: Abdominal pain, history of hiatal hernia COMPARISON STUDY: Chest CT February 14, 2022. FLUOROSCOPY TIME: 1 minute. FLUOROSCOPIC IMAGES: 32 FINDINGS: Mild esophageal dysmotility was noted. There is a moderate-sized sliding-type hiatal hernia . The gastroesophageal junction, gastric cardia and fundus are above the diaphragm. Mucosal detail is diminished on this exam but no definite mucosal lesion is identified. Multiple episodes of gastroeso phageal reflux were noted. Caliber of the duodenum is normal. Caliber of the opacified jejunum is nor mal. Suspected diverticula of the duodenum are noted. IMPRESSION: 1. Moderate-sized sliding-type hiatal hernia with intrathoracic GE junction, gastric cardia and fundu s. 2. Multiple episodes of gastroesophageal reflux. 3. Mild esophageal dysmotility. 4. Diminished mucosal detail. ACT 112: Negative or not required by law. Electronically signed by: Ferny England M.D. 02/16/2022 1:49 PM
[2022-02-16] MEDS: ROSUVASTATIN CALCIUM 20 MG TAB PO SCH (20:58)
[2022-02-16] MEDS: TAMSULOSIN HCL 0.4 MG CAP PO SCH (20:58)
[2022-02-16] MEDS: FAMOTIDINE 20 MG TAB PO SCH (21:05)
--- NOTE | 2022-02-16 21:14 | Hospitalist Progress Note ---
Date of Service February 16, 2022 Assessment & Plan (1) Epigastric abdominal pain: Plan: chest pain resolved - now having upper abd pain with esophageal symptoms as well. this is despite PPI twice daily + carafate qid. add H2 carmen. cont clears. RUQ u/s without signs of gallstones/ biliary disease. he has a known, large hiatal hernia and had egd-confirmed esophagitis in 2020 via EGD by [facility]. [facility] consulted today - they recommended upper GI series. this again showed a large intra-thoracic hiatal hernia and he had several episodes of reflux during the study. GI to perform EGD in am; thus, NPO after MN. in addition to the above I recommended he elevate the head of his bed at all times and avoid laying down after eating/drinking. repeat labs am. (2) Chest pain: Plan: Given his cardiac cath findings on 02/13 (see HPI) it is unlikely that his presenting symptoms were from ischemia. I consulted Dr Leonardo Larson from [facility] who recommended an urgent limited echo to check LV wall motion. LV EF was preserved, and there were no wall motion abnormalities. EKG findings, known cardiac cath findings, and unchanged echo also support non- ischemic etiology for his symptoms. Further, there is no evidence for aortic dissection, PE, or clinical evidence of pericarditis. Appreciate Dr Larson's consultation. (3) Elevated troponin: Plan: Likely 2nd to cardiac cath performed on 02/13; and in particular performing FFR across the mid-LAD. ischemia unlikely. (4) Tricuspid regurgitation: Plan: Moderate on echo 2020. By report an echo via the custodial system more recently showed severe TR. He has been referred to the valve clinic at [facility]. Dr Larson advised once daily PO lasix in the event he has elevated RA pressures from the severe TR leading to abdominal symptoms from such but doubtful -- patient has had no change in abd symptoms since admission despite the lasix. (5) CAD (coronary artery disease): Plan: Known CAD. h/o acute HI 2000 s/p LAD stent. s/p cardiac cath 02/13/22 at [facility]. 50% mid-LAD lesion (in-stent stenosis). FFR 0.85 thus ischemia unlikely. Repeat echo yesterday with normal LV wall motion. Continue statin. Continue beta carmen. Continue asa. Continue amlodipine. (6) Esophagitis: Plan: EGD/colonoscopy performed 05/2021 for anemia by [facility]. EGD showed hiatal hernia with esophagitis. Upper GI pathology could be the cause of his symptoms. Increased PPI to twice daily, and added carafate 1gm QID. Symptoms still ongoing thus added IV pepcid this evening. Appreciate [facility] consult. Upper GI results noted. EGD tomorrow; NPO for such after midnight. (7) Hiatal hernia: Plan: Large. Could be contributing to episodes of chest pain. See above. (8) Sarcoidosis: Plan: No evidence of active disease on CT chest imaging. (9) Diabetes mellitus: Plan: Last a1c was fall 2020 -- 7.1%. Now - 7.9%. Cont lantus. Cont novolog SSI. (10) Hyperlipidemia: Plan: Cont statin. (11) History of CVA (cerebrovascular accident): Plan: Noted. Cont asa for secondary prevention. (12) BPH w urinary obs/LUTS: Plan: Cont alpha carmen (was taking flomax + prazosin - stopped latter - likely little benefit to dual alpha carmen therapy). Cont finasteride. Plan: change observation status to full admission Admission and Anticipated Discharge Date Admission Date: February 16, 2022 Subjective patient states he had had "abdominal pains all day" but the guards at bedside report he has been comfortable, sleeping no vomiting no chest pain no dyspnea tele overnight wnl Review of Systems Review of Systems: gen - no fevers cv - no orthopnea pulm - no cough GI - had another bowel movement today Physical Exam Physical Exam: gen - tardive dyskinetic movements of mouth/tongue; NAD, awake, alert mouth - MMM neck - no JVD heart- RRR, s1 s2, 2/6 systolic murmur LSB lungs - CTA b/l abd - soft, tender RUQ and high epigastric area (minimal today), BS+, no HSM, mildly distended skin - large midline scar abd wall ext - no edema, pulses 2+ b /l Results & Data Results & Data ([facility]) Vital Signs (Past 12 Hours) Vital Signs Temp Pulse Resp BP Pulse Ox 02/16/22 19:26 36.7 C 88 18 141/90 H 94 02/16/22 16:00 36.6 C 83 18 111/81 95 02/16/22 12:00 36.4 C L 64 16 133/77 98 Laboratory Results Laboratory Results - last 24 hr 02/15/22 02/16/22 02/16/22 06:25 05:45 07:34 Sodium 135 L Potassium 4.0 Chloride 101 Carbon Dioxide 25 Anion Gap 9 BUN 16 Creatinine 1.07 Est Cr Clr Drug Dosing 83.8 Est GFR ( Amer) 88.2 Est GFR (Non-Af Amer) 76.1 BUN/Creatinine Ratio 15.0 Glucose 136 H POC Glucose 140 H Estimat Average Glucose 180 Hemoglobin A1c 7.9 H Calcium 9.1 Magnesium Total Bilirubin 0.4 AST 17 ALT 16 Alkaline Phosphatase 70 Total Protein 7.0 Albumin 4.2 Globulin 2.8 Albumin/Globulin Ratio 1.5 02/16/22 02/16/22 02/16/22 11:21 16:13 20:37 Sodium Potassium Chloride Carbon Dioxide Anion Gap BUN Creatinine Est Cr Clr Drug Dosing Est GFR ( Amer) Est GFR (Non-Af Amer) BUN/Creatinine Ratio Glucose POC Glucose 146 H 180 H 115 H Estimat Average Glucose Hemoglobin A1c Calcium Magnesium Total Bilirubin AST ALT Alkaline Phosphatase Total Protein Albumin Globulin Albumin/Globulin Ratio PG Care Time/CCT Total # of Minutes Spent Total Time Spent with Patient: Total time spent is greater than 50% in coordination of care (as documented) at patient's floor/unit and/or counseling patient: Coding Level of Care Code 61699 Subseq Hosp Care Lvl 2 Diagnoses Epigastric abdominal pain R10.13 Chest pain R07.9 Elevated troponin R77.8 Tricuspid regurgitation I07.1 Cardiac valve disease etiology: etiology unspecified CAD (coronary artery disease) I25.10 Esophagitis K20.90 Hiatal hernia K44.9 Sarcoidosis D86.9 Diabetes mellitus E11.9 Hyperlipidemia E78.5 History of CVA (cerebrovascular accident) Z86.73 BPH w urinary obs/LUTS N40.1; N13.8 (1) Tricuspid regurgitation Cardiac valve disease etiology: etiology unspecified Qualified Code(s): I07.1 - Rheumatic tricuspid insufficiency
[2022-02-17 07:09] LABS: BUN Creatinine Ratio 11.6 (10-20); Calcium 9.3 mg/dl (8.5-10.1); Creatinine Clr Calc Pharmacy 73.8 ml/min; Est GFR (Non-African American) 65.6 ml/min; Potassium 3.8 mmol/L (3.5-5.1)
[2022-02-17] MEDS ORDERED: PROPOFOL IV EMULSION 10 MG/ML 20 ML VIAL IV ONE ×2 (08:11→09:21)
[2022-02-17] MEDS ORDERED: LIDOCAINE 2% 2 ML VIAL/AMP(20MG/ML) INFIL ONE (08:11)
[2022-02-17] MEDS: INSULIN ASPART PER UNIT SC SCH ×4 (08:21→21:16)
--- NOTE | 2022-02-17 09:09 | History & Physical Bridge Note ---
Date of Service February 17, 2022 History & Physical Bridge Note I have examined the patient, reviewed the History & Physical and in the interval since the performance of the History & Physical I have noted the following changes of clinical significance: no changes noted. We are planning to do upper endoscopy for evaluation of recurrent chest discomfort. The patient did have an upper GI series yesterday which shows a partially intrathoracic stomach. Pending results of today's endoscopy the patient may benefit from referral to a tertiary care center where surgical repair could be considered.
--- NOTE | 2022-02-17 09:24 | Communication Note ---
Date of Service: February 17, 2022 The patient underwent upper endoscopy today and was found to have a large hiatal hernia. There appears to be a significant amount of the stomach within the c hest and I wonder if this could be causing his intermittent discomfort. As the patient has symptoms despite use of a proton pump inhibitor I think referral to surgery would be beneficial in his case. I am not certain if this type of repair can be done at our hospital and would suggest discussing with general surgery. If not available here would then refer to a larger Medical Center. Please call with any questions or concerns, GI to sign off
--- NOTE | 2022-02-17 09:27 | GI REPORT ---
Patient Name: Janak Curtis Procedure Date: 02/17/2022 8:16 AM Date of : 1965 Admit Type: Inpatient Age: 56 Gender: Male Attending MD: Hallie Scott DO Procedure: Upper GI endoscopy Providers: Hallie Scott DO Referring MD: Pooja Garcia Md Indications: Unexplained chest pain Medicines: Monitored Anesthesia Care Complications: No immediate complications. Estimated blood loss: Minimal. Estimated Blood Loss: Estimated blood loss was minimal. Procedure: Pre-Anesthesia Assessment: - Prior to the procedure, a History and Physical was performed, and patient medications, allergies and sensitivities were reviewed. The patient's tolerance of previous anesthesia was reviewed. - The risks and benefits of the procedure and the sedation options and risks were discussed with the patient. All questions were answered and informed consent was obtained. - Patient identification and proposed procedure were verified prior to the procedure by the physician, the nurse and the adult ministries director. The procedure was verified in the procedure room. - Pre-procedure physical examination revealed no contraindications to sedation. - ASA Grade Assessment: III - A patient with severe systemic disease. - After reviewing the risks and benefits, the patient was deemed in satisfactory condition to undergo the procedure. - The anesthesia plan was to use monitored anesthesia care (MAC). - Immediately prior to administration of medications, the patient was re-assessed for adequacy to receive sedatives. - The heart rate, respiratory rate, oxygen saturations, blood pressure, adequacy of pulmonary ventilation, and response to care were monitored throughout the procedure. - The physical status of the patient was re-assessed after the procedure. After obtaining informed consent, the endoscope was passed under direct vision. Throughout the procedure, the patient's blood pressure, pulse, and oxygen saturations were monitored continuously. The Endoscope was introduced through the mouth, and advanced to the third part of duodenum. The upper GI endoscopy was accomplished without difficulty. The patient tolerated the procedure well. Findings: The upper third of the esophagus was normal. The middle third of the esophagus and lower third of the esophagus were moderately tortuous. A large type-III paraesophageal hernia was found. The proximal extent of the gastric folds (end of tubular esophagus) was 33 cm from the incisors. The hiatal narrowing was 42 cm from the incisors. The Z-line was 33 cm from the incisors. The gastric body, incisura and gastric antrum were normal. The examined duodenum was normal. Impression: - Normal upper third of esophagus. - Tortuous esophagus. - Large type-III paraesophageal hernia. - Normal gastric body, incisura and antrum. - Normal examined duodenum. - No specimens collected. Recommendation: - [facility]. - Use Protonix (pantoprazole) 40 mg PO daily. - Consider a referring to a surgeon for paraesophageal hernia repair. Hallie Scott D.O. Hallie Scott, 02/17/2022 9:27:36 AM This report has been signed electronically. Note Initiated On: 02/17/2022 8:16 AM Number of Addenda: 0 I attest to the content of the Intraoperative Record and orders documented therein, exceptions below {[id number]}
--- NOTE | 2022-02-17 10:55 | Anesthesiology Progress Note ---
Date of Service February 17, 2022 Anesthesia Post Procedure Vital Signs Vital Signs: Temp Pulse Pulse Resp BP Pulse Ox 02/17/22 10:00 97 H 18 120/94 94 02/17/22 09:45 96 H 16 136/99 94 02/17/22 09:30 105 H 14 95/72 L 99 02/17/22 09:05 36.7 C 82 18 143/108 H 98 02/17/22 07:31 36.8 C 95 H 18 127/84 98 02/17/22 04:38 37.0 C 90 16 127/93 99 02/16/22 23:36 36.7 C 82 18 121/81 93 02/16/22 22:30 85 02/16/22 19:26 36.7 C 88 18 141/90 H 94 02/16/22 16:00 36.6 C 83 18 111/81 95 02/16/22 12:00 36.4 C L 64 16 133/77 98 Pain Intensity Chest: Pain Intensity: 4 Bilateral Abdomen: Pain Intensity: 8 Transfer of Care Handoff Completed per policy Notes Mental Status: alert / awake / arousable and participated in evaluation Patient Amnestic to Procedure: Yes Nausea / Vomiting: adequately controlled Pain: adequately controlled Airway Patency, RR, SpO2: stable & adequate BP & HR: stable & adequate Hydration State: stable & adequate Anesthetic Complications: no major complications apparent and Pt Satisfied with anesthetic care
[2022-02-17] MEDS: SUCRALFATE 1 GM/10 ML UDC PO SCH ×4 (10:59→21:23)
[2022-02-17] MEDS: PANTOprazole 40 MG TAB PO SCH ×2 (10:59→21:22)
[2022-02-17] MEDS: allopurinoL 100 MG TAB PO SCH (11:00)
[2022-02-17] MEDS: ASPIRIN 81 MG ECTAB PO SCH (11:00)
[2022-02-17] MEDS: FUROSEMIDE 20 MG TAB PO SCH (11:00)
[2022-02-17] MEDS: ARIPIprazole 1 MG/ML ORAL SOLN 150 ML BTL PO SCH (11:01)
[2022-02-17] MEDS: FINASTERIDE 5 MG TAB PO SCH (11:01)
[2022-02-17] MEDS: amLODIPine BESYLATE 5 MG TAB PO SCH (11:01)
[2022-02-17] MEDS: DOCUSATE SODIUM 100 MG CAP PO SCH ×2 (11:02→21:22)
[2022-02-17] MEDS: FLUTICASONE FUROATE 200MCG 14 PUFFS/INHALER INH SCH (11:02)
[2022-02-17] MEDS: POLYETHYLENE (MIRALAX) 17 GM PACK PO SCH (11:03)
[2022-02-17] MEDS: METOPROLOL TARTRATE 25 MG TAB PO SCH ×2 (11:03→21:25)
[2022-02-17] MEDS: DULoxetine HCL 60 MG CAP PO SCH ×2 (11:04→21:22)
[2022-02-17] MEDS: FAMOTIDINE 20 MG TAB PO SCH ×2 (11:04→21:22)
[2022-02-17] MEDS: ACETAMINOPHEN 325 MG TAB PO PRN (11:06)
[2022-02-17] MEDS: INSULIN GLARGINE SOLOSTAR 100 UNITS/ML 3 ML PEN SQ SCH (11:25)
--- NOTE | 2022-02-17 11:34 | Hospitalist Progress Note ---
Date of Service February 17, 2022 Assessment & Plan (1) Hiatal hernia: Plan: chest pain with epigastric pain ongoing for years Cardiac workup unrevealing with recent cardiac cath this is despite PPI twice daily + carafate qid. added H2 carmen. RUQ u/s without signs of gallstones/ biliary disease. he has a known, large hiatal hernia and had egd-confirmed esophagitis in 2020 via EGD by [facility]. [facility] consulted here- recommended upper GI series--this again showed a large intra-thoracic hiatal hernia and he had several episodes of reflux during the study. GI performed EGD which showed grade 3 paraesophageal hiatal hernia and recommended surgical eval in addition to the above I recommended he elevate the head of his bed at all times and avoid laying down after eating/drinking. -discussed with Dr. De La Fuente of Surgery who will eval for hiatal hernia repair -ok to continue clear liquids diet for now (2) Chest pain: Plan: Given his cardiac cath findings on 02/13 (see HPI) it is unlikely that his presenting symptoms were from ischemia. consulted Dr Leonardo Larson from [facility] who recommended an urgent limited echo to check LV wall motion. LV EF was preserved, and there were no wall motion abnormalities. EKG findings, known cardiac cath findings, and unchanged echo also support non- ischemic etiology for his symptoms. Further, there is no evidence for aortic dissection, PE, or clinical evidence of pericarditis. Appreciate Dr Larson's consultation. (3) Elevated troponin: Plan: Likely 2nd to cardiac cath performed on 02/13; and in particular performing FFR across the mid-LAD. ischemia unlikely. (4) Tricuspid regurgitation: Plan: Moderate on echo 2020. By report an echo via the retirement system more recently showed severe TR. He has been referred to the valve clinic at [facility]. Dr Larson advised once daily PO lasix in the event he has elevated RA pressures from the severe TR leading to abdominal symptoms from such but doubtful -- patient has had no change in abd symptoms since admission despite the lasix. (5) CAD (coronary artery disease): Plan: Known CAD. h/o acute [place] 2000 s/p LAD stent. s/p cardiac cath 02/13/22 at [facility]. 50% mid-LAD lesion (in-stent stenosis). FFR 0.85 thus ischemia unlikely. Repeat echo here with normal LV wall motion. Continue statin. Continue beta carmen. Continue asa. Continue amlodipine. (6) Esophagitis: Plan: EGD/colonoscopy performed 05/2021 for anemia by [facility]. EGD showed hiatal hernia with esophagitis. Upper GI pathology could be the cause of his symptoms. Increased PPI to twice daily, and added carafate 1gm QID. Symptoms still ongoing thus added pepcid Appreciate [facility] consult. Upper GI results noted. EGD with hiatal hernia, otherwise normal (7) Hiatal hernia: Plan: Large. Likely ontributing to episodes of chest pain. (8) Sarcoidosis: Plan: No evidence of active disease on CT chest imaging. (9) Diabetes mellitus: Plan: Last a1c was fall 2020 -- 7.1%. Now - 7.9%. Cont lantus. Cont novolog SSI. (10) Hyperlipidemia: Plan: Cont statin. (11) History of CVA (cerebrovascular accident): Plan: Noted. Cont asa for secondary prevention. (12) BPH w urinary obs/LUTS: Plan: Cont alpha carmen (was taking flomax + prazosin - stopped latter - likely little benefit to dual alpha carmen therapy). Cont finasteride. (13) Depression: Plan: likely with some schizoaffective d/o as well continue Abilify, duloxetine Plan: DVT proph- add SCDs Dispo-continued stay on PCU, await possible surgery Admission and Anticipated Discharge Date Admission Date: February 16, 2022 Subjective Just returned from EGD, denies any pains, no nausea. No BM in 2 days. No chest pain or SOB. Discussed his care with Surgery Dr. De La Fuente regarding possible paraesophageal hernia repair. Pt states he'd be agreeable to this if able to have done here. Has a h/o ventral hernia repair with ALEXA after bowel obstruction in 2015, mesh in place. Tele with NSR, rates 90-100 Review of Systems Review of Systems: All systems reviewed & are unremarkable except as noted in HPI & below Physical Exam Constitutional: WD/WN, vitals as above Eyes: + anicteric sclerae ENMT: external ear and nose normal, oropharynx normal Neck: trachea midline, no thyromegaly Respiratory: normal respiratory effort, lungs clear to auscultation Cardiovascular: RRR, no murmur, no edema Chest (Breasts): Chest: normal inspection of chest Gastrointestinal (Abdomen): normal bowel sounds, soft, nontender, no hepatosplenomegaly Inspection/Auscultation: + abdomen abnormal to inspection (incisinal scar midline lower abdomen) and abdomen not distended Musculoskeletal: Extremities: extremities normal to inspection; no cyanosis and no clubbing Skin: no rashes, warm and dry Neurologic: moves all extremities and awake; no focal motor deficits Psychiatric: A+Ox3, euthymic affect Lymphatic: no lymphedema Results & Data Results & Data ([facility]) Vital Signs (Past 12 Hours) Vital Signs Temp Pulse Resp BP Pulse Ox 02/17/22 10:00 97 H 18 120/94 94 02/17/22 09:45 96 H 16 136/99 94 02/17/22 09:30 105 H 14 95/72 L 99 02/17/22 09:05 36.7 C 82 18 143/108 H 98 02/17/22 07:31 36.8 C 95 H 18 127/84 98 02/17/22 04:38 37.0 C 90 16 127/93 99 02/16/22 23:36 36.7 C 82 18 121/81 93 Laboratory Results 02/17/22 02/17/22 02/16/22 Range/Units 06:26 06:01 20:37 Sodium 135 L (136-145) mmol/L Potassium 3.8 (3.5-5.1) mmol/L Chloride 102 (98-107) mmol/L Carbon Dioxide 23 (21-32) mmol/L Anion Gap 10 (3-11) BUN 14 (6-23) mg/dl Creatinine 1.21 (0.6-1.4) mg/dl Est Cr Clr Drug Dosing 73.8 ml/min Est GFR ( Amer) 76.0 ml/min Est GFR (Non-Af Amer) 65.6 ml/min BUN/Creatinine Ratio 11.6 (10-20) Glucose 153 H (70-99(Fasting)) mg/dl POC Glucose 132 H 115 H (70-99) mg/dl Calcium 9.3 (8.5-10.1) mg/dl Magnesium 2.0 (1.7-2.4) mg/dl 05/16/22 Range/Units 16:13 Sodium (136-145) mmol/L Potassium (3.5-5.1) mmol/L Chloride (98-107) mmol/L Carbon Dioxide (21-32) mmol/L Anion Gap (3-11) BUN (6-23) mg/dl Creatinine (0.6-1.4) mg/dl Est Cr Clr Drug Dosing ml/min Est GFR ( Amer) ml/min Est GFR (Non-Af Amer) ml/min BUN/Creatinine Ratio (10-20) Glucose (70-99(Fasting)) mg/dl POC Glucose 180 H (70-99) mg/dl Calcium (8.5-10.1) mg/dl Magnesium (1.7-2.4) mg/dl PG Care Time/CCT Total # of Minutes Spent Total Time Spent with Patient: Total time spent is greater than 50% in coordination of care (as documented) at patient's floor/unit and/or counseling patient: Coding Level of Care Code 26644 Subseq Hosp Care Lvl 2 Diagnoses Chest pain R07.9 Elevated troponin R77.8 Tricuspid regurgitation I07.1 Cardiac valve disease etiology: etiology unspecified CAD (coronary artery disease) I25.10 Esophagitis K20.90 Hiatal hernia K44.9 Sarcoidosis D86.9 Diabetes mellitus E11.9 Hyperlipidemia E78.5 History of CVA (cerebrovascular accident) Z86.73 BPH w urinary obs/LUTS N40.1; N13.8 Hiatal hernia K44.9 Depression F32.9 (1) Tricuspid regurgitation Cardiac valve disease etiology: etiology unspecified Qualified Code(s): I07.1 - Rheumatic tricuspid insufficiency
--- NOTE | 2022-02-17 20:21 | Surgery Consultation ---
Date of Consultation February 17, 2022 Assessment & Plan (1) Hiatal hernia: It does appear as though the hiatal hernia is the source of the majority of his symptoms. No other good explanation. He does have esophageal dysmotility so full fundoplication would not be advised. We could offer him a laparoscopic repair of the hiatal hernia as well as a partial fundoplication. We discussed the risks of this procedure which would include bleeding, infection, injury to another organ such as esophagus lungs spleen stomach diaphragm etc., dysphagia, DVT, PE, NE, CVA etc. We discussed the special diet he would need to be on postoperatively. Following our discussion I answered all of his questions. I will need to talk to the medical and cardiac team tomorrow. He does have extensive medical history which would likely place him at least at a moderate risk. Provided he gets cardiac and medical clearance tomorrow I could offer him the surgery on . He agrees with the plan and would like to proceed if possible. The surgery would be laparoscopic repair of hiatal hernia and partial gastric fundoplication. (2) Chest pain: (3) Dyspnea on exertion: (4) Pulmonary hypertension: (5) CAD (coronary artery disease): (6) Diabetes mellitus: (7) GERD (gastroesophageal reflux disease): History of Present Illness Attending Physician: Pooja Garcia MD History of Present Illness 56-year-old male from a local correctional facility. He has been complaining of chest pain for several years. It has been escalating. He presented to the hospital and a cardiac work-up was negative followed by GI work-up which has revealed a sliding-type hiatal hernia. He has been complaining of worsening acid reflux. He also has shortness of breath with exertion and worse when bending over. He also complains of dysphagia with frequent postprandial vomiting. Work-up includes an EGD upper GI as well as CT scan all of which confirm a sliding-type of hiatal hernia with some intrathoracic stomach. Allergies Allergy/AdvReac Type Severity Reaction Status Date / Time lisinopril Allergy Severe ANAPHYLAXIS Verified 02/14/22 07:06 ibuprofen Allergy Intermediate HIVES Verified 02/14/22 07:06 morphine Allergy Intermediate HIVES Verified 02/14/22 07:06 capsaicin Allergy Unknown Unknown Verified 02/14/22 07:06 phenytoin Allergy Unknown Unknown Verified 02/14/22 07:06 Home Medications Medication Instructions Recorded Confirmed Type allopurinol 100 mg tablet 100 mg PO QAM 09/23/20 02/14/22 History aspirin 81 mg tablet,delayed 81 mg PO QAM 09/23/20 02/14/22 History release calcium carbonate 600 mg-vitamin 2 tab PO BID 09/23/20 02/14/22 History D3 5 mcg (200 unit) tablet finasteride 5 mg tablet 5 mg PO QAM 09/23/20 02/14/22 History rosuvastatin 20 mg tablet 20 mg PO HS 09/23/20 02/14/22 History valsartan 80 mg tablet 80 mg PO QAM 09/23/20 02/14/22 History ciclesonide 160 mcg/actuation 1 puff INHALATION BID 07/21/21 02/14/22 History aerosol inhaler (Alvesco) docusate sodium 100 mg capsule 200 mg PO BID 07/21/21 02/14/22 History meclizine 12.5 mg tablet 12.5 mg PO TID PRN #30 tab 07/24/21 02/14/22 Rx polyethylene glycol 3350 17 gram 17 g PO DAILY #1 btl 07/24/21 02/14/22 Rx oral powder packet (Miralax) albuterol sulfate 90 mcg/actuation 2 puff INHALATION QID PRN 02/06/22 02/14/22 History aerosol inhaler aluminum hydrox-magnesium carb 95 30 ml PO PCHS PRN 02/06/22 02/14/22 History mg-358 mg/15 mL oral suspension (Acid Gone Antacid) amlodipine 5 mg tablet 5 mg PO DAILY 02/06/22 02/14/22 History aripiprazole 2 mg tablet (Abilify) 2 mg PO DAILY 02/06/22 02/14/22 History duloxetine 60 mg capsule,delayed 60 mg PO BID 02/06/22 02/14/22 History release insulin glargine 100 unit/mL 11 unit SUBCUT DAILY 02/06/22 02/14/22 History subcutaneous solution insulin regular human 100 unit/mL 1 sliding scale dose SUBCUT 02/06/22 02/14/22 History injection solution (Novolin R USEASDIRECTD Regular U-100 Insulin) metoprolol tartrate 25 mg tablet 12.5 mg PO BID 02/06/22 02/14/22 History pantoprazole 40 mg tablet,delayed 40 mg PO DAILY 02/06/22 02/14/22 History release prazosin 2 mg capsule 2 mg PO HS 02/06/22 02/14/22 History tamsulosin 0.4 mg capsule 0.8 mg PO HS 02/06/22 02/14/22 History Patient History Medical History Acute myocardial infarction 2020 s/p LAD stent Angina pectoris Asthma Atypical chest pain Bowel obstruction CAD (coronary artery disease) Depression DM type 2 (diabetes mellitus, type 2) Encounter for pre-operative examination Esophagitis on EGD, [facility], 2020 Head injury Hiatal hernia History of CVA (cerebrovascular accident) Hx SBO Hyperlipidemia Hypertension Iron deficiency anemia Peptic ulcer disease Pulmonary hypertension Sarcoidosis Skin cancer Syncope Tricuspid regurgitation Surgical History H/O exploratory laparotomy "05/31/2015 with lysis of adhesions, release of bowel obstruction, repair of incisional hernia" H/O ventral hernia repair History of back surgery S/P cardiac cath S/P coronary artery stent placement (05/07/13) "2000" Family History Mother , age 67 Lung cancer Father , age 68 Lung cancer Brother Stroke age 55 Social History Smoking Status: Unknown if ever smoked Hx Alcohol Use: No Hx Substance Use: No Preferred Language: Bulgarian Communication Ability: Effective Smoking Tobacco Packer Hand Required: No Beliefs That Will Affect Care: None Current Living Situation: Other Current Living Situation Comment: intermediate - [facility] Feels Safe at Home: Yes Assistive Devices: Cane Review of Systems Review of Systems: All systems reviewed & are unremarkable except as noted in HPI & below Physical Exam Constitutional: WD/WN, vitals as above no acute distress and not ill appearing Eyes: PERRL, conjunctivae normal, anicteric sclerae EOM intact bilaterally ENMT: external ear and nose normal, oropharynx normal Ears: no hearing impairment Neck: trachea midline, no thyromegaly Respiratory: normal respiratory effort; no respiratory distress and does not use accessory muscles Cardiovascular: Rate/Rhythm: regular rate and regular rhythm Gastrointestinal (Abdomen): Soft. Nontender. Lower midline incision. No palpable hernias or other abnormalities. Skin: no rashes, warm and dry Psychiatric: Orientation: alert, oriented x 3 and cooperative Results & Data ([facility]) Vital Signs (Past 12 Hours) Vital Signs Temp Pulse Pulse Resp BP BP Pulse Ox 02/17/22 17:54 36.8 C 78 18 130/85 98 02/17/22 16:03 36.8 C 81 19 114/79 91 02/17/22 14:52 76 02/17/22 12:42 101 H 02/17/22 11:42 36.7 C 78 19 128/86 97 02/17/22 10:00 97 H 18 120/94 94 02/17/22 09:45 96 H 16 136/99 94 02/17/22 09:30 105 H 14 95/72 L 99 02/17/22 09:05 36.7 C 82 18 143/108 H 98 PG Care Time/CCT Total # of Minutes Spent Total Time Spent with Patient: Total time spent is greater than 50% in coordination of care (as documented) at patient's floor/unit and/or counseling patient: Coding Level of Care Code 94502 Office/OBS Consult Lvl 5 Diagnoses Hiatal hernia K44.9 Chest pain R07.9 Dyspnea on exertion R06.00 Pulmonary hypertension I27.20 CAD (coronary artery disease) I25.10 Diabetes mellitus E11.9 GERD (gastroesophageal reflux disease) K21.9
[2022-02-17] MEDS: TAMSULOSIN HCL 0.4 MG CAP PO SCH (21:21)
[2022-02-17] MEDS: ROSUVASTATIN CALCIUM 20 MG TAB PO SCH (21:24)
[2022-02-18] MEDS: INSULIN ASPART PER UNIT SC SCH ×4 (09:03→21:21)
[2022-02-18] MEDS: INSULIN GLARGINE SOLOSTAR 100 UNITS/ML 3 ML PEN SQ SCH (09:07)
[2022-02-18] MEDS: FLUTICASONE FUROATE 200MCG 14 PUFFS/INHALER INH SCH (09:08)
[2022-02-18] MEDS: PANTOprazole 40 MG TAB PO SCH ×2 (09:12→21:27)
[2022-02-18] MEDS: METOPROLOL TARTRATE 25 MG TAB PO SCH ×2 (09:12→21:28)
[2022-02-18] MEDS: SUCRALFATE 1 GM/10 ML UDC PO SCH ×3 (09:12→17:50)
[2022-02-18] MEDS: ARIPIprazole 1 MG/ML ORAL SOLN 150 ML BTL PO SCH (09:12)
[2022-02-18] MEDS: POLYETHYLENE (MIRALAX) 17 GM PACK PO SCH (09:12)
[2022-02-18] MEDS: FINASTERIDE 5 MG TAB PO SCH (09:13)
[2022-02-18] MEDS: FUROSEMIDE 20 MG TAB PO SCH (09:13)
[2022-02-18] MEDS: FAMOTIDINE 20 MG TAB PO SCH ×2 (09:13→21:27)
[2022-02-18] MEDS: ASPIRIN 81 MG ECTAB PO SCH (09:14)
[2022-02-18] MEDS: allopurinoL 100 MG TAB PO SCH (09:14)
[2022-02-18] MEDS: amLODIPine BESYLATE 5 MG TAB PO SCH (09:14)
[2022-02-18] MEDS: DULoxetine HCL 60 MG CAP PO SCH ×2 (09:14→21:27)
[2022-02-18] MEDS: DOCUSATE SODIUM 100 MG CAP PO SCH ×2 (09:14→21:27)
--- NOTE | 2022-02-18 09:22 | Surgery Progress Note ---
Date of Service February 18, 2022 Assessment & Plan (1) Hiatal hernia: Plan: Patient here with large hiatal hernia, confirmed by EGD with GI -Remains with intermittent discomfort, especially with eating/drinking -We have tentatively placed the patient on the schedule for tomorrow for repair of hiatal hernia and partial fundoplication -He is optimized and cleared from a medical standpoint, but the hospitalists will reach out with Cardiology to ensure he is cleared from their end and that no further workup is indicated -Okay to continue clears, will make NPO at midnight Admission and Anticipated Discharge Date Admission Date: February 16, 2022 Subjective Patient feeling okay. Reports some mild pain in chest that comes and goes, made worse with eating/drinking. Mild nausea. No vomiting. Physical Exam Physical Exam: awake/alert, no acute distress Results & Data ([facility]) Vital Signs (Past 12 Hours) Vital Signs Temp Pulse Resp BP Pulse Ox 02/18/22 07:24 36.7 C 75 18 130/95 92 02/17/22 23:14 36.8 C 71 16 117/78 94 02/17/22 21:28 85 128/88 PG Care Time/CCT Total # of Minutes Spent Total Time Spent with Patient: Total time spent is greater than 50% in coordination of care (as documented) at patient's floor/unit and/or counseling patient: Coding Level of Care Code 18332 Subseq Hosp Care Lvl 1 Diagnoses Hiatal hernia K44.9
--- NOTE | 2022-02-18 15:41 | Cardiology Progress Note ---
Date of Service February 18, 2022 Assessment & Plan (1) Encounter for pre-operative examination: Plan: He has had a recent evaluation of his coronaries which did not demonstrate any obstructive disease. Overall intracardiac and pulmonary pressures were unremarkable. While he was suspected of having severe tricuspid regurgitation, I do not think this poses a significant risk for the procedure planned for tomorrow. I would not advocate any additional cardiovascular testing leading up to his hiatal hernia repair. I do not believe any specific interventions are required. As with all cardiac patients, avoiding significant hypotension, hypoxia, tachycardia and blood loss is important. Continue metoprolol in the perioperative period. Admission and Anticipated Discharge Date Admission Date: February 16, 2022 Subjective This afternoon the patient claimed he feeling well. He continues to have symptoms of chest discomfort. These are most noticeable with eating but he did have some with ambulation to the bathroom and back. No significant dyspnea, but he does report orthopnea. No lower extremity edema. Anxious regarding possible surgery tomorrow. Review of Systems Review of Systems: Per HPI Physical Exam Physical Exam: The patient is alert and oriented. Mood and affect appeared normal. He answered all questions appropriately. HEENT: Pupils are equal and reactive to light and accommodation. Extraocular movements are intact. The sclerae are anicteric. Neuro: Cranial nerves intact Lungs: Clear to auscultation bilaterally. He has good air movement without use of accessory muscles. No rales wheezes or rhonchi. Cardiac: Heart demonstrates a regular rate and rhythm. Normal S1 and S2. Soft holosystolic murmur. Pulses: The patient has palpable radial pulses bilaterally that are equal in intensity Extremities: There was no evidence of hypoperfusion. There is no cyanosis or clubbing. There is no edema. Skin: I did not appreciate any rashes on examination today. Results & Data ([facility]) Vital Signs (Past 12 Hours) Vital Signs Temp Pulse Resp BP Pulse Ox 02/18/22 15:26 36.7 C 75 18 114/72 92 02/18/22 07:24 36.7 C 75 18 130/95 92 Laboratory Results Abnormal Lab Results 02/17/22 02/17/22 02/18/22 16:12 20:02 08:10 POC Glucose 86 106 H 129 H 02/18/22 12:18 POC Glucose 94 Diagnostic Findings Right and left heart catheterization performed 02/14/2020 2:50 a.m.% InStent restenoses in the LAD without evidence of significant flow limitation on invasive evaluation. Right-sided heart pressures were relatively normal. Left ventricular filling pressure was normal. PG Care Time/CCT Total # of Minutes Spent Total Time Spent with Patient: Total time spent is greater than 50% in coordination of care (as documented) at patient's floor/unit and/or counseling patient: Coding Level of Care Code 56890 Subseq Hosp Care Lvl 2 Diagnoses Encounter for pre-operative examination Z01.818
--- NOTE | 2022-02-18 17:25 | Hospitalist Progress Note ---
Date of Service February 18, 2022 Assessment & Plan (1) Hiatal hernia: Plan: chest pain with epigastric pain ongoing for years Cardiac workup unrevealing with recent cardiac cath this is despite PPI twice daily + carafate qid. added H2 carmen. RUQ u/s without signs of gallstones/ biliary disease. he has a known, large hiatal hernia and had egd-confirmed esophagitis in 2020 via EGD by [facility]. [facility] consulted here- recommended upper GI series--this again showed a large intra-thoracic hiatal hernia and he had several episodes of reflux during the study. GI performed EGD which showed grade 3 paraesophageal hiatal hernia and recommended surgical eval in addition to the above I recommended he elevate the head of his bed at all times and avoid laying down after eating/drinking. -discussed with Dr. De La Fuente of Surgery who will eval for hiatal hernia repair- surgery planned for 02/19 -Continue clear liquids for today -N.p.o. after midnight -Hold sucralfate -Appreciate cardiology preoperative assessment-ensure that patient takes metoprolol in the perioperative period. (2) Chest pain: Plan: Given his cardiac cath findings on 02/13 (see HPI) it is unlikely that his presenting symptoms were from ischemia. consulted Dr Leonardo Larson from [facility] who recommended an urgent limited echo to check LV wall motion. LV EF was preserved, and there were no wall motion abnormalities. EKG findings, known cardiac cath findings, and unchanged echo also support non- ischemic etiology for his symptoms. Further, there is no evidence for aortic dissection, PE, or clinical evidence of pericarditis. Appreciate Dr Larson's consultation. (3) Elevated troponin: Plan: Likely 2nd to cardiac cath performed on 02/13; and in particular performing FFR across the mid-LAD. ischemia unlikely. (4) Tricuspid regurgitation: Plan: Moderate on echo 2020. By report an echo via the halfway system more recently showed severe TR. He has been referred to the valve clinic at [facility]. Dr Larson advised once daily PO lasix in the event he has elevated RA pressures from the severe TR leading to abdominal symptoms from such but doubtful -- patient has had no change in abd symptoms since admission despite the lasix. -Hold Lasix prior to surgery (5) CAD (coronary artery disease): Plan: Known CAD. h/o acute VT 2000 s/p LAD stent. s/p cardiac cath 02/13/22 at [facility]. 50% mid-LAD lesion (in-stent stenosis). FFR 0.85 thus ischemia unlikely. Repeat echo here with normal LV wall motion. Continue statin. Continue beta carmen. Continue asa. Continue amlodipine. (6) Esophagitis: Plan: EGD/colonoscopy performed 05/2021 for anemia by [facility] Romero. EGD showed hiatal hernia with esophagitis. Upper GI pathology could be the cause of his symptoms. Increased PPI to twice daily, and added carafate 1gm QID. Symptoms still ongoing thus added pepcid [facility] Upper GI results noted. EGD with hiatal hernia, otherwise normal (7) Sarcoidosis: Plan: No evidence of active disease on CT chest imaging. (8) Diabetes mellitus: Plan: Last a1c was fall 2020 -- 7.1%. Now - 7.9%. Cont lantus. Cont novolog SSI. (9) Hyperlipidemia: Plan: Cont statin. (10) History of CVA (cerebrovascular accident): Plan: Noted. Cont asa for secondary prevention. (11) BPH w urinary obs/LUTS: Plan: Cont alpha carmen (was taking flomax + prazosin - stopped latter - likely little benefit to dual alpha carmen therapy). Cont finasteride. (12) Depression: Plan: likely with some schizoaffective d/o as well continue Abilify, duloxetine Plan: DVT proph- add SCDs Dispo-downgraded to medical/surgical unit on 02/17, continued stay, for surgery on 02/19 for hiatal hernia repair and then will likely stay for least 1 day postoperatively Admission and Anticipated Discharge Date Admission Date: February 16, 2022 Subjective Patient feeling anxious for surgery tomorrow. Intermittent chest pains with eating. Moved his bowels today. No other complaints. I discussed his case with the surgical PA and the analysis internship. Review of Systems Review of Systems: All systems reviewed & are unremarkable except as noted in HPI & below Physical Exam Constitutional: WD/WN, vitals as above Eyes: + anicteric sclerae Neck: trachea midline, no thyromegaly Respiratory: normal respiratory effort, lungs clear to auscultation Cardiovascular: RRR, no murmur, no edema Chest (Breasts): Chest: normal inspection of chest Gastrointestinal (Abdomen): normal bowel sounds, soft, nontender, no hepatosplenomegaly Inspection/Auscultation: + abdomen abnormal to inspection (incisinal scar midline lower abdomen) and abdomen not distended Musculoskeletal: Extremities: extremities normal to inspection; no cyanosis and no clubbing Skin: no rashes, warm and dry Neurologic: moves all extremities and awake; no focal motor deficits Psychiatric: A+Ox3, euthymic affect Lymphatic: no lymphedema Results & Data Results & Data ([facility]) Vital Signs (Past 12 Hours) Vital Signs Temp Pulse Resp BP Pulse Ox 02/18/22 15:26 36.7 C 75 18 114/72 92 02/18/22 07:24 36.7 C 75 18 130/95 92 PG Care Time/CCT Total # of Minutes Spent Total Time Spent with Patient: Total time spent is greater than 50% in coordination of care (as documented) at patient's floor/unit and/or counseling patient: Coding Level of Care Code 32332 Subseq Hosp Care Lvl 2 Diagnoses Hiatal hernia K44.9 Chest pain R07.9 Elevated troponin R77.8 Tricuspid regurgitation I07.1 Cardiac valve disease etiology: etiology unspecified CAD (coronary artery disease) I25.10 Esophagitis K20.90 Sarcoidosis D86.9 Diabetes mellitus E11.9 Hyperlipidemia E78.5 History of CVA (cerebrovascular accident) Z86.73 BPH w urinary obs/LUTS N40.1; N13.8 Depression F32.9 (1) Tricuspid regurgitation Cardiac valve disease etiology: etiology unspecified Qualified Code(s): I07.1 - Rheumatic tricuspid insufficiency
[2022-02-18] MEDS: TAMSULOSIN HCL 0.4 MG CAP PO SCH (21:27)
[2022-02-18] MEDS: ROSUVASTATIN CALCIUM 20 MG TAB PO SCH (21:27)
[2022-02-18] MEDS ORDERED: MELATONIN 3 MG TAB PO ONE (21:58)
[2022-02-19] MEDS ORDERED: Nursing to Pharmacy Communication SCH ×2 (00:45→19:15)
[2022-02-19] MEDS: INSULIN ASPART PER UNIT SC SCH ×5 (06:12→23:49)
[2022-02-19 08:26] LABS: Basophils # (auto) 0.01 K/uL (0-0.2); Basophils % (auto) 0.3 %; Eosinophils # (auto) 0.13 K/uL (0-0.5); Eosinophils % (auto) 3.4 %; Hematocrit (blood only) 37.4 % (42-52); Hemoglobin 12.4 g/dL (14.0-18.0); Immature Granulocytes # (auto) 0.01 K/uL (0.00-0.02); Immature Granulocytes % (auto) 0.3 %; Lymphocytes # (auto) 1.19 K/uL (1.2-3.4); Lymphocytes % (auto) 31.5 %; Mean Corpuscular Hemoglobin 27.6 pg (25-34); Mean Corpuscular Hgb Conc 33.2 g/dL (32-36); Mean Corpuscular Volume 83.3 fL (80-100); Mean Platelet Volume 8.1 fL (7.4-10.4); Monocytes # (auto) 0.31 K/uL (0.11-0.59); Monocytes % (auto) 8.2 %; Neutrophils # (auto) 2.13 K/uL (1.4-6.5); Neutrophils % (auto) 56.3 %; Platelet Count 270 K/uL (130-400); RDW Standard Deviation 42.5 fL (36.4-46.3); Red Blood Count 4.49 M/uL (4.7-6.1); White Blood Count 3.78 K/uL (4.8-10.8)
[2022-02-19 08:44] LABS: BUN Creatinine Ratio 9.8 (10-20); Calcium 9.1 mg/dl (8.5-10.1); Creatinine Clr Calc Pharmacy 72.6 ml/min; Est GFR (African American) 74.5 ml/min; Est GFR (Non-African American) 64.3 ml/min; Potassium 3.8 mmol/L (3.5-5.1)
[2022-02-19] MEDS: INSULIN GLARGINE SOLOSTAR 100 UNITS/ML 3 ML PEN SQ SCH (08:45)
[2022-02-19] MEDS: ACETAMINOPHEN 325 MG TAB PO PRN (08:49)
[2022-02-19] MEDS: allopurinoL 100 MG TAB PO SCH (08:50)
[2022-02-19] MEDS: PANTOprazole 40 MG TAB PO SCH ×2 (08:50→20:15)
[2022-02-19] MEDS: METOPROLOL TARTRATE 25 MG TAB PO SCH ×2 (08:50→20:14)
[2022-02-19] MEDS: amLODIPine BESYLATE 5 MG TAB PO SCH (08:50)
[2022-02-19] MEDS: DULoxetine HCL 60 MG CAP PO SCH ×2 (08:50→20:15)
[2022-02-19] MEDS: ASPIRIN 81 MG ECTAB PO SCH (08:50)
[2022-02-19] MEDS: FINASTERIDE 5 MG TAB PO SCH (08:51)
[2022-02-19] MEDS: FLUTICASONE FUROATE 200MCG 14 PUFFS/INHALER INH SCH (08:52)
[2022-02-19] MEDS: DOCUSATE SODIUM 100 MG CAP PO SCH ×2 (08:54→20:16)
[2022-02-19] MEDS: ARIPIprazole 1 MG/ML ORAL SOLN 150 ML BTL PO SCH (08:54)
[2022-02-19] MEDS: FAMOTIDINE 20 MG TAB PO SCH ×2 (08:54→20:16)
--- NOTE | 2022-02-19 13:18 | Hospitalist Progress Note ---
Date of Service February 19, 2022 Assessment & Plan (1) Hiatal hernia: Plan: chest pain with epigastric pain ongoing for years Cardiac workup unrevealing with recent cardiac cath this is despite PPI twice daily + carafate qid and H2 carmen. RUQ u/s without signs of gallstones/ biliary disease. he has a known, large hiatal hernia and had egd-confirmed esophagitis in 2020 via EGD by [facility]. [facility] consulted here- recommended upper GI series--this again showed a large intra-thoracic hiatal hernia and he had several episodes of reflux during the study. GI performed EGD which showed grade 3 paraesophageal hiatal hernia and recommended surgical eval -discussed with Dr. De La Fuente of Surgery who will eval for hiatal hernia repair- surgery planned for 02/19 -after surgery will need clear liquids and then no advancement beyond full liquids for a couple of weeks post-op -Hold sucralfate -Appreciate cardiology preoperative assessment-ensure that patient takes metoprolol in the perioperative period. -start maintenance IVFs with LR at 80 mL/hr now while NPO for surgery (2) Chest pain: Plan: Given his cardiac cath findings on 02/13 (see HPI) it is unlikely that his presenting symptoms were from ischemia. consulted Dr Leonardo Larson from [facility] who recommended an urgent limited echo to check LV wall motion. LV EF was preserved, and there were no wall motion abnormalities. EKG findings, known cardiac cath findings, and unchanged echo also support non- ischemic etiology for his symptoms. Further, there is no evidence for aortic dissection, PE, or clinical evidence of pericarditis. Appreciate Dr Larson's consultation. (3) Elevated troponin: Plan: Likely 2nd to cardiac cath performed on 02/13; and in particular performing FFR across the mid-LAD. ischemia unlikely. (4) Tricuspid regurgitation: Plan: Moderate on echo 2020. By report an echo via the [facility] system more recently showed severe TR. He has been referred to the valve clinic at [facility]. Dr Larson advised once daily PO lasix in the event he has elevated RA pressures from the severe TR leading to abdominal symptoms from such but doubtful -- patient has had no change in abd symptoms since admission despite the lasix. -Hold Lasix prior to surgery (5) CAD (coronary artery disease): Plan: Known CAD. h/o acute PR 2000 s/p LAD stent. s/p cardiac cath 02/13/22 at [facility]. 50% mid-LAD lesion (in-stent stenosis). FFR 0.85 thus ischemia unlikely. Repeat echo here with normal LV wall motion. Continue statin. Continue beta carmen. Continue asa. Continue amlodipine. (6) Esophagitis: Plan: EGD/colonoscopy performed 05/2021 for anemia by Augustine Romero. EGD showed hiatal hernia with esophagitis. Upper GI pathology could be the cause of his symptoms. Increased PPI to twice daily, and added carafate 1gm QID. Symptoms still ongoing thus added pepcid [facility]. Upper GI results noted. EGD with hiatal hernia, otherwise normal holding carafate (7) Sarcoidosis: Plan: No evidence of active disease on CT chest imaging. (8) Diabetes mellitus: Plan: Last a1c was fall 2020 -- 7.1%. Now - 7.9%. Cont lantus. Cont novolog SSI. (9) Hyperlipidemia: Plan: Cont statin. (10) History of CVA (cerebrovascular accident): Plan: Noted. Cont asa for secondary prevention. (11) BPH w urinary obs/LUTS: Plan: Cont alpha carmen (was taking flomax + prazosin - stopped latter - likely little benefit to dual alpha carmen therapy however I suspect he may be on prazosin for Psychiatric reasons). Cont finasteride. (12) Depression: Plan: likely with some schizoaffective d/o as well continue Abilify, duloxetine Plan: DVT proph- SCDs Dispo-downgraded to medical/surgical unit on 02/17, continued stay, for surgery on 02/19 for hiatal hernia repair and then will likely stay for least 1 day postoperatively Admission and Anticipated Discharge Date Admission Date: February 16, 2022 Subjective Still having some chest pain. Moved bowels yesterday. Is still awaiting to go down for surgery today and feeling a bit anxious. Otherwise no complaints Review of Systems Review of Systems: All systems reviewed & are unremarkable except as noted in HPI & below Physical Exam Constitutional: WD/WN, vitals as above Eyes: + anicteric sclerae Neck: trachea midline, no thyromegaly Respiratory: normal respiratory effort, lungs clear to auscultation Cardiovascular: RRR, no murmur, no edema Chest (Breasts): Chest: normal inspection of chest Gastrointestinal (Abdomen): normal bowel sounds, soft, nontender, no hepatosplenomegaly Inspection/Auscultation: + abdomen abnormal to inspection (incisinal scar midline lower abdomen) and abdomen not distended Musculoskeletal: Extremities: extremities normal to inspection; no cyanosis and no clubbing Skin: no rashes, warm and dry Neurologic: moves all extremities and awake; no focal motor deficits Psychiatric: A+Ox3, euthymic affect Lymphatic: no lymphedema Results & Data Results & Data ([facility]) Vital Signs (Past 12 Hours) Vital Signs Temp Pulse Resp BP Pulse Ox 02/19/22 07:14 36.8 C 84 16 132/75 96 Laboratory Results 02/19/22 02/19/22 02/19/22 Range/Units 12:10 07:11 07:11 WBC 3.78 L (4.8-10.8) K/uL RBC 4.49 L (4.7-6.1) M/uL Hgb 12.4 L (14.0-18.0) g/dL Hct 37.4 L (42-52) % MCV 83.3 (80-100) fL MCH 27.6 (25-34) pg MCHC 33.2 (32-36) g/dL RDW Std Deviation 42.5 (36.4-46.3) fL RDW Coeff of Eliana 14.0 (11.5-14.5) % Plt Count 270 (130-400) K/uL MPV 8.1 (7.4-10.4) fL Immature Gran % (Auto) 0.3 % Neut % (Auto) 56.3 % Lymph % (Auto) 31.5 % [place] % (Auto) 8.2 % Eos % (Auto) 3.4 % Baso % (Auto) 0.3 % Neut # (Auto) 2.13 (1.4-6.5) K/uL Lymph # (Auto) 1.19 L (1.2-3.4) K/uL [place] # (Auto) 0.31 (0.11-0.59) K/uL Eos # (Auto) 0.13 (0-0.5) K/uL Baso # (Auto) 0.01 (0-0.2) K/uL Immature Gran # (Auto) 0.01 (0.00-0.02) K/uL Sodium 136 (136-145) mmol/L Potassium 3.8 (3.5-5.1) mmol/L Chloride 104 (98-107) mmol/L Carbon Dioxide 24 (21-32) mmol/L Anion Gap 8 (3-11) BUN 12 (6-23) mg/dl Creatinine 1.23 (0.6-1.4) mg/dl Est Cr Clr Drug Dosing 72.6 ml/min Est GFR ( Amer) 74.5 ml/min Est GFR (Non-Af Amer) 64.3 ml/min BUN/Creatinine Ratio 9.8 L (10-20) Glucose 113 H (70-99(Fasting)) mg/dl POC Glucose 113 H (70-99) mg/dl Calcium 9.1 (8.5-10.1) mg/dl Blood Type Antibody Screen 02/19/22 02/19/22 02/18/22 Range/Units 07:11 06:08 20:17 WBC (4.8-10.8) K/uL RBC (4.7-6.1) M/uL Hgb (14.0-18.0) g/dL Hct (42-52) % MCV (80-100) fL MCH (25-34) pg MCHC (32-36) g/dL RDW Std Deviation (36.4-46.3) fL RDW Coeff of Eliana (11.5-14.5) % Plt Count (130-400) K/uL MPV (7.4-10.4) fL Immature Gran % (Auto) % Neut % (Auto) % Lymph % (Auto) % [place] % (Auto) % Eos % (Auto) % Baso % (Auto) % Neut # (Auto) (1.4-6.5) K/uL Lymph # (Auto) (1.2-3.4) K/uL [place] # (Auto) (0.11-0.59) K/uL Eos # (Auto) (0-0.5) K/uL Baso # (Auto) (0-0.2) K/uL Immature Gran # (Auto) (0.00-0.02) K/uL Sodium (136-145) mmol/L Potassium (3.5-5.1) mmol/L Chloride (98-107) mmol/L Carbon Dioxide (21-32) mmol/L Anion Gap (3-11) BUN (6-23) mg/dl Creatinine (0.6-1.4) mg/dl Est Cr Clr Drug Dosing ml/min Est GFR ( Amer) ml/min Est GFR (Non-Af Amer) ml/min BUN/Creatinine Ratio (10-20) Glucose (70-99(Fasting)) mg/dl POC Glucose 124 H 133 H (70-99) mg/dl Calcium (8.5-10.1) mg/dl Blood Type O Positive Antibody Screen NEGATIVE 02/18/22 Range/Units 17:16 WBC (4.8-10.8) K/uL RBC (4.7-6.1) M/uL Hgb (14.0-18.0) g/dL Hct (42-52) % MCV (80-100) fL MCH (25-34) pg MCHC (32-36) g/dL RDW Std Deviation (36.4-46.3) fL RDW Coeff of Eliana (11.5-14.5) % Plt Count (130-400) K/uL MPV (7.4-10.4) fL Immature Gran % (Auto) % Neut % (Auto) % Lymph % (Auto) % [place] % (Auto) % Eos % (Auto) % Baso % (Auto) % Neut # (Auto) (1.4-6.5) K/uL Lymph # (Auto) (1.2-3.4) K/uL [place] # (Auto) (0.11-0.59) K/uL Eos # (Auto) (0-0.5) K/uL Baso # (Auto) (0-0.2) K/uL Immature Gran # (Auto) (0.00-0.02) K/uL Sodium (136-145) mmol/L Potassium (3.5-5.1) mmol/L Chloride (98-107) mmol/L Carbon Dioxide (21-32) mmol/L Anion Gap (3-11) BUN (6-23) mg/dl Creatinine (0.6-1.4) mg/dl Est Cr Clr Drug Dosing ml/min Est GFR ( Amer) ml/min Est GFR (Non-Af Amer) ml/min BUN/Creatinine Ratio (10-20) Glucose (70-99(Fasting)) mg/dl POC Glucose 93 (70-99) mg/dl Calcium (8.5-10.1) mg/dl Blood Type Antibody Screen PG Care Time/CCT Total # of Minutes Spent Total Time Spent with Patient: Total time spent is greater than 50% in coordination of care (as documented) at patient's floor/unit and/or counseling patient: Coding Level of Care Code 36258 Subseq Hosp Care Lvl 2 Diagnoses Hiatal hernia K44.9 Chest pain R07.9 Elevated troponin R77.8 Tricuspid regurgitation I07.1 Cardiac valve disease etiology: etiology unspecified CAD (coronary artery disease) I25.10 Esophagitis K20.90 Sarcoidosis D86.9 Diabetes mellitus E11.9 Hyperlipidemia E78.5 History of CVA (cerebrovascular accident) Z86.73 BPH w urinary obs/LUTS N40.1; N13.8 Depression F32.9 (1) Tricuspid regurgitation Cardiac valve disease etiology: etiology unspecified Qualified Code(s): I07.1 - Rheumatic tricuspid insufficiency
[2022-02-19] MEDS ORDERED: fentaNYL citrate 100 MCG/2 ML VIAL ONE (14:20)
[2022-02-19] MEDS ORDERED: MIDAZOLAM HCL 1 MG/ML 2ML VIAL ONE (14:20)
[2022-02-19] MEDS: LACTATED RINGER'S 1,000 ML IV SCH ×2 (14:23→23:31)
--- NOTE | 2022-02-19 14:34 | Anesthesiology Consultation ---
Date of Service February 19, 2022 Assessment & Plan (1) Encounter for pre-operative examination: Chart Review Chart Review: data entry assistant initiated History Surgery Operation Date: 02/16/22 17:15 Proposed Procedures p Esophagogastroduodenoscopy Dr Tyler Scott, DO Operation Date: 02/17/22 16:45 Proposed Procedures p Esophagogastroduodenoscopy Dr Tyler Scott, DO Operation Date: 02/19/22 12:55 Proposed Procedures p Laparoscopic Repair of Hiatal Hernia (Katie) - Luke De La Fuente, DO Height/Weight Height: 5 ft 9 in Weight: 89.9 kg Allergies Allergy/AdvReac Type Severity Reaction Status Date / Time lisinopril Allergy Severe ANAPHYLAXIS Verified 02/14/22 07:06 ibuprofen Allergy Intermediate HIVES Verified 02/14/22 07:06 morphine Allergy Intermediate HIVES Verified 02/14/22 07:06 capsaicin Allergy Unknown Unknown Verified 02/14/22 07:06 phenytoin Allergy Unknown Unknown Verified 02/14/22 07:06 Medications Home Medications Medication Instructions Recorded Confirmed Last Taken allopurinol 100 mg tablet 100 mg PO QAM 09/23/20 02/14/22 02/06/22 aspirin 81 mg tablet,delayed 81 mg PO QAM 09/23/20 02/14/22 02/06/22 release calcium carbonate 600 mg-vitamin 2 tab PO BID 09/23/20 02/14/22 02/06/22 06:30 D3 5 mcg (200 unit) tablet finasteride 5 mg tablet 5 mg PO QAM 09/23/20 02/14/22 02/06/22 rosuvastatin 20 mg tablet 20 mg PO HS 09/23/20 02/14/22 02/05/22 valsartan 80 mg tablet 80 mg PO QAM 09/23/20 02/14/22 02/06/22 ciclesonide 160 mcg/actuation 1 puff INHALATION BID 07/21/21 02/14/22 Unknown aerosol inhaler (Alvesco) docusate sodium 100 mg capsule 200 mg PO BID 07/21/21 02/14/22 02/06/22 06:30 meclizine 12.5 mg tablet 12.5 mg PO TID PRN #30 tab 07/24/21 02/14/22 Unknown polyethylene glycol 3350 17 gram 17 g PO DAILY #1 btl 07/24/21 02/14/22 Unknown oral powder packet (Miralax) albuterol sulfate 90 mcg/actuation 2 puff INHALATION QID PRN 02/06/22 02/14/22 Unknown aerosol inhaler aluminum hydrox-magnesium carb 95 30 ml PO PCHS PRN 02/06/22 02/14/22 Unknown mg-358 mg/15 mL oral suspension (Acid Gone Antacid) amlodipine 5 mg tablet 5 mg PO DAILY 02/06/22 02/14/22 02/06/22 aripiprazole 2 mg tablet (Abilify) 2 mg PO DAILY 02/06/22 02/14/22 02/06/22 duloxetine 60 mg capsule,delayed 60 mg PO BID 02/06/22 02/14/22 02/06/22 06:30 release insulin glargine 100 unit/mL 11 unit SUBCUT DAILY 02/06/22 02/14/22 02/06/22 subcutaneous solution insulin regular human 100 unit/mL 1 sliding scale dose SUBCUT 02/06/22 02/14/22 02/06/22 injection solution (Novolin R USEASDIRECTD Regular U-100 Insulin) metoprolol tartrate 25 mg tablet 12.5 mg PO BID 02/06/22 02/14/22 02/06/22 06:30 pantoprazole 40 mg tablet,delayed 40 mg PO DAILY 02/06/22 02/14/22 02/06/22 release prazosin 2 mg capsule 2 mg PO HS 02/06/22 02/14/22 02/05/22 tamsulosin 0.4 mg capsule 0.8 mg PO 02/06/22 02/14/22 02/05/22 Active Medications Generic Name Dose Route Start Last Admin Trade Name Freq PRN Reason Stop Dose Admin Acetaminophen 650 mg 02/14/22 10:46 02/19/22 08:49 Acetaminophen 325 Mg Tab PO 03/16/22 10:45 650 mg Q4H PRN Administration Pain or Fever Allopurinol 100 mg 02/15/22 09:00 02/19/22 08:50 Allopurinol 100 Mg Tab PO 03/17/22 08:59 100 mg QAM LIN Administration Amlodipine Besylate 5 mg 02/15/22 09:00 02/19/22 08:50 Amlodipine Besylate 5 Mg Tab PO 03/17/22 08:59 5 mg DAILY LIN Administration Aripiprazole 2 mg 02/15/22 09:00 02/19/22 08:54 Aripiprazole 1 Mg/Ml Oral Soln 150 Ml Btl PO 03/17/22 08:59 2 mg DAILY LIN Administration Aspirin 81 mg 02/15/22 09:00 02/19/22 08:50 Aspirin 81 Mg Ectab PO 03/17/22 08:59 81 mg QAM LIN Administration Docusate Sodium 200 mg 02/14/22 21:00 02/19/22 08:54 Docusate Sodium 100 Mg Cap PO 03/16/22 20:59 200 mg BID LIN Administration Duloxetine HCl 60 mg 02/14/22 21:00 02/19/22 08:50 Duloxetine Hcl 60 Mg Cap PO 03/16/22 20:59 60 mg BID LIN Administration Famotidine 20 mg 02/16/22 21:00 02/19/22 08:54 Famotidine 20 Mg Tab PO 03/18/22 20:59 20 mg BID LIN Administration Finasteride 5 mg 02/15/22 09:00 02/19/22 08:51 Finasteride 5 Mg Tab PO 03/17/22 08:59 5 mg QAM LIN Administration Fluticasone Furoate 1 puffs 02/15/22 09:00 02/19/22 08:52 Fluticasone Furoate 200mcg 14 Puffs/Inhaler INH 03/17/22 08:59 1 puffs DAILY LIN Administration Furosemide 20 mg 02/15/22 09:00 02/18/22 09:13 Furosemide 20 Mg Tab PO 03/17/22 08:59 20 mg QAM LIN Administration Lactated Ringer's 1,000 mls @ 80 mls/hr 02/19/22 13:30 02/19/22 14:23 Lr IV 03/21/22 13:29 80 mls/hr .[id number] LIN Administration Insulin Aspart 0 units 02/19/22 06:00 02/19/22 13:13 Insulin Aspart Per Unit SC 03/21/22 05:59 Not Given Q6 LIN Insulin Glargine 11 units 02/15/22 09:00 02/19/22 08:45 Insulin Glargine Solostar 100 Units/Ml 3 Ml Pen SQ 03/17/22 08:59 5 units DAILY LIN Administration Metoprolol Tartrate 12.5 mg 02/14/22 21:00 02/19/22 08:50 Metoprolol Tartrate 25 Mg Tab PO 03/16/22 20:59 12.5 mg BID LIN Administration Pantoprazole Sodium 40 mg 02/14/22 21:00 02/19/22 08:50 Pantoprazole 40 Mg Tab PO 03/16/22 20:59 40 mg BID LIN Administration Polyethylene Glycol 17 gm 02/15/22 09:00 02/18/22 09:12 Polyethylene (Miralax) 17 Gm Pack PO 03/17/22 08:59 17 gm DAILY LIN Administration Rosuvastatin Calcium 20 mg 02/14/22 21:00 02/18/22 21:27 Rosuvastatin Calcium 20 Mg Tab PO 03/16/22 20:59 20 mg HS LIN Administration Sucralfate 1 gm 02/14/22 21:00 02/18/22 17:50 Sucralfate 1 Gm/10 Ml Udc PO 03/16/22 20:59 Not Given QID LIN Tamsulosin HCl 0.8 mg 02/14/22 21:00 02/18/22 21:27 Tamsulosin Hcl 0.4 Mg Cap PO 03/16/22 20:59 0.8 mg HS LIN Administration NPO Date Last Intake of Fluids: 02/16/22 Time Last Intake of Fluids: 21:00 Date Last Intake of Solids: 02/15/22 Time Last Intake of Solids: 08:00 Past Medical History Medical History Acute myocardial infarction 2020 s/p LAD stent Angina pectoris Asthma Atypical chest pain Bowel obstruction CAD (coronary artery disease) Depression DM type 2 (diabetes mellitus, type 2) Encounter for pre-operative examination Esophagitis on EGD, [facility], 2020 Head injury Hiatal hernia History of CVA (cerebrovascular accident) Hx SBO Hyperlipidemia Hypertension Iron deficiency anemia Peptic ulcer disease Pulmonary hypertension Sarcoidosis Skin cancer Syncope Tricuspid regurgitation Past Family History Family History Mother , age 67 Lung cancer Father , age 68 Lung cancer Brother Stroke age 55 Past Surgical History Surgical History H/O exploratory laparotomy "05/31/2015 with lysis of adhesions, release of bowel obstruction, repair of incisional hernia" H/O ventral hernia repair History of back surgery S/P cardiac cath S/P coronary artery stent placement (05/07/13) "2000" Social History Smoking Status: Unknown if ever smoked Hx Alcohol Use: No Hx Substance Use: No substance use type: does not use Physical Exam Vital Signs Last Vital Signs Temp 98.2 F 02/19/22 07:14 Pulse 84 02/19/22 07:14 Resp 16 02/19/22 07:14 BP 132/75 02/19/22 07:14 Pulse Ox 96 02/19/22 07:14 Testing Laboratory Results 02/19/22 07:11 02/19/22 07:11 Hemoglobin A1c 7.9 % (4.5-5.6) H 02/15/22 06:25 Blood Type O Positive 02/19/22 07:11 Antibody Screen NEGATIVE 02/19/22 07:11 02/19/22 02/19/22 12:10 06:08 POC Glucose 113 H 124 H Electrocardiogram Date: 02/14/22 Normal sinus rhythm Incomplete right bundle branch block Voltage criteria for left ventricular hypertrophy Nonspecific T wave abnormality Prolonged QT Abnormal ECG When compared with ECG of 06-FEB-2022 16:20, No significant change was found Confirmed by Leonardo Larson ([id number]) on 02/14/2022 10:22:12 AM Chest X-Ray Date: 02/06/22 IMPRESSION: 1. No acute cardiopulmonary findings. No change in appearance of the chest. 2. Hiatal hernia. Echocardiogram Date: 02/14/22 EF: 55-60% LV Function: normal RWMA: + none Cardiac Catheterization Date: 02/13/22 Summary: 1. Nonobstructive moderate mid LAD in-stent restenosis (FFR 0.85). -Mild concentric calcified in-stent restenosis on IVUS. 40% ostial circumflex on IVUS. Recommendations: Continue with planned cardiac surgical evaluation. Continued ASCVD risk factor.
--- NOTE | 2022-02-19 15:18 | History & Physical Bridge Note ---
Date of Service February 19, 2022 History & Physical Bridge Note I have examined the patient, reviewed the History & Physical and in the interval since the performance of the History & Physical I have noted the following changes of clinical significance: no changes noted Patient seen. Okay to proceed per medicine and cardiology. We rediscussed the plans for today's surgery. I answered all of his questions. We will proceed today with a laparoscopic hiatal hernia repair with partial gastric fundoplication. He agrees with the plan.
[2022-02-19] MEDS ORDERED: BUPIVACAINE 0.5 % 5 MG/1 ML MPF 30ML VIAL ONE (15:37)
[2022-02-19] MEDS ORDERED: EPINEPHrine INJ 1 MG/ML AMP ONE (15:37)
[2022-02-19] MEDS ORDERED: ceFAZolin 330 MG/ML 1 GM VIAL ONE (16:15)
[2022-02-19] MEDS ORDERED: LIDOCAINE 2% 2 ML VIAL/AMP(20MG/ML) INFIL ONE (16:32)
[2022-02-19] MEDS ORDERED: DEXAMETHASONE SOD INJ 4 MG/ML VIAL ONE (16:32)
[2022-02-19] MEDS ORDERED: ONDANSETRON INJ 2 MG/ML 2 ML VIAL ONE (16:32)
[2022-02-19] MEDS ORDERED: PHENYLEPHRINE 100MCG/ML 5ML SYR ONE (16:32)
[2022-02-19] MEDS ORDERED: ePHEDrine sulfate 50 MG/ML SYR ONE (16:32)
[2022-02-19] MEDS ORDERED: LARYING-O-JET KIT (LTA) ONE (16:32)
[2022-02-19] MEDS ORDERED: SUCCINYLCHOLINE CHLORIDE 20 MG/ML 10 ML VIAL IV ONE (16:32)
[2022-02-19] MEDS ORDERED: ROCURONIUM BROMIDE 10 MG/ML 5 ML VIAL IV ONE (16:32)
[2022-02-19] MEDS ORDERED: HYDROmorphone INJ 2 MG/ML SYR/VIAL ONE (16:32)
[2022-02-19] MEDS ORDERED: PROPOFOL IV EMULSION 10 MG/ML 20 ML VIAL IV ONE (16:32)
[2022-02-19] MEDS ORDERED: PHENYLEPHRINE HCL 10 MG/ML VIAL ONE (16:32)
[2022-02-19] MEDS ORDERED: ceFAZolin 2000MG 2,000 MG/15 ML SYR IV ONE (16:34)
--- NOTE | 2022-02-19 18:20 | Operative Report ---
PG Post Operative Report Pre & Post Diagnosis Operation Date: 02/16/22 17:15 <No data on this case meets the specified criteria> Operation Date: 02/17/22 16:45 Pre-Op Diagnosis: Upper abdominal pain Post-Op Diagnosis: HIATAL HERNIA Operation Date: 02/19/22 12:55 Pre-Op Diagnosis: (1) Hiatal hernia; GERD (gastroesophageal reflux disease) post-op diagonisis: hiatal hernia; gerd I identified the patient and participated in the time-out.: Yes Procedure Operation Date: 02/16/22 17:15 <No data on this case meets the specified criteria> Operation Date: 02/17/22 16:45 Actual Procedures p Esophagogastroduodenoscopy - Hallie Scott DO Operation Date: 02/19/22 12:55 Actual Procedures p Laparoscopic Repair of Hiatal Hernia; partial gastric fundoplication; posterior gastropexy(Not Applicable) - Luke De La Fuente DO Surgeon Luke De La Fuente DO Box Sealing Machine Catcher damon Bryant Estimated Blood Loss 20 Findings Consistent with Post-Op Diagnosis Specimens none Description of Procedure After informed consent was obtained the patient was taken to the operating room and placed in supine position. After successful intubation the abdomen was shaved and sterilely prepped and draped in usual fashion. A supraumbilical incision was made with an 11 blade scalpel and carried down through the soft tissue using cautery. The anterior rectus fascia was opened using cautery and two #0 Vicryl stay sutures were placed. Peritoneum was entered using blunt finger penetration and a finger sweep was performed. A 12 mm Drew trocar was placed and the abdomen insufflated to 18 mmHg. Laparoscope was inserted and the abdomen examined in 360 degrees. There were some adhesions in the lower abdomen. There were no abnormalities in the upper abdomen other than a large hiatal hernia with gastric incarceration. A left upper quadrant 12 mm port , right upper quadrant 5 mm port, a right flank 5 mm port and a left flank 5 mm port were all placed under direct vision. The patient was placed in a reverse Trendelenburg position. A liver retractor with a self holding device was used throughout the case to hold up the left lobe of the liver. When we elevated the liver there was a large hiatal hernia with probably 50 to 60% of the stomach incarcerated within it. We began by using traction and countertraction to reduce the stomach. I took down the hernia sac in 360 degrees by starting along the right anabela of the diaphragm. I carried this anteriorly up over the midportion of the diaphragm and down over to the left anabela. Eventually we had the hernia sac completely excised and I removed it from the camera port site. At this point we exchange the orogastric tube for a 50 Green[place]ic bougie. Once we took down the hernia sac the stomach laid nicely in the abdominal cavity without any tension. Next I took down the top 4 or 5 short gastric vessels using the harmonic scalpel. Once we had these taken down I then elevated the stomach and placed several posterior crural stitches with 0 Surgidac with the Endo Stitch device. This closed the hernia defect on the posterior side. Once this was accomplished I used 0 Surgidac again with the Endo Stitch device to close the hernia defect anteriorly. A retrogastric window was created using blunt dissection. Reticulating grasper was advanced through this window and reticulated. I did place an 0 Surgidac stitch on the fundus of the stomach. The reticulating grasper then used the stitch to pull the fundus through that retrogastric window. I was able to easily perform a shoeshine test. I performed a posterior gastropexy by securing the body/fundus of the stomach to the right crura of the diaphragm. I then completed the 270 degree wrap by grasping stomach serosa anteriorly and securing it to the fundus of the stomach on the medial side as well as grasping some lateral body wall of the stomach and securing it to the preesophageal fat pad/gastric serosa anteriorly. The wrap blade nice and floppy with no tension. There was adequate hemostasis. We thoroughly irrigated the upper abdomen. No other gross abnormalities were identified. The bougie was easily removed. Liver retractor as well as the trochars were removed under direct vision. The abdomen was desufflated. The fascia of the camera port was closed using 0 Vicryl in a [id number] fashion. All the wounds were irrigated and closed using 4-0 Monocryl. Marcaine with epinephrine were injected around the incisions for postoperative analgesia and skin glue used as a dressing. The patient was awakened, extubated and transferred to recovery in stable condition. My physician retail assistant store manager was present for the entire case. He was instrumental in prepping the abdomen. He assisted with running the camera as well as retraction throughout my entire dissection. Assisted with wound closure and dressing placement. I attest to the content of the Intraoperative Record and any orders documented therein. Any exceptions are noted below.
[2022-02-19] MEDS: HYDROmorphone INJ 1 MG/ML SYRINGE IV PRN ×2 (19:24→23:20)
[2022-02-19] MEDS: ROSUVASTATIN CALCIUM 20 MG TAB PO SCH (20:14)
[2022-02-19] MEDS: TAMSULOSIN HCL 0.4 MG CAP PO SCH (20:15)
--- NOTE | 2022-02-19 23:16 | Communication Note ---
Date of Service: February 19, 2022 Update: Re-evaluated patient this morning. States that the IV Dilaudid improved the pain and he was able to get some sleep. However, now with recurrent pain. Patient reiterates that the pain is exacerbated with deep inspiration and movement. On exam, patient resting comfortably in NAD, heart RRR, lungs CTAB, abd is soft/nondistended/nontender with incisions C/D/I. Patient due for prn analgesic in 30 min per RN. S -- Notified by RN that patient c/o acute CP. At bedside, patient complaining of 7/10 midsternal CP that radiates to the left upper chest and left arm. Patient notes sudden onset about 10-15 minutes ago while using incentive spirometer. Patient reports associated SOB and sweating. The pain is described as tightness and heaviness. Pain is exacerbated with deep inspiration and movement. Has hx of 2 MIs in the past which feel "kind of similar, kind of different." He denies dizziness, nausea, vomiting, or headache. Has chronic BLE pain but no change in leg pain from baseline; no leg swelling. Of note, patient did have surgery (laparoscopic hiatal hernia repair) earlier this afternoon/evening. O -- VS: 134/81, HR 71, Resp 16, Temp 36.5, O2 96% 2L Patient in mild distress. Heart RRR, no murmurs. Lungs CTAB. No increased work of breathing. Laparoscopic surgical incision are C/D/I with no active bleeding, surrounding erythema EKG performed: NSR 90 bpm, incomplete RBBB, no acute ST elevations, compared to EKG 02/14 Labs reviewed from this AM incl. H/H 12.4/37.4, Cr 1.23, K 3.8, Na 136, A/P -- 56 yo male with acute CP s/p hernia repair. - Nitro ordered - IV dilaudid for pain (patient with allergy to morphine) - Will get stat troponin - 1st trop = 24.2; 2nd trop 2 hours later = 24.3 - Will get stat CTA chest to evaluate for PE [facility] Patient: RAJINDER DAVIDSON [id number] (Male) : 61 Status: IP Date: 02/20/22 01:58 Room #: 362 History: PAIN IN CHEST, S/P HERNIA REPAIR 02-19-22 Slices: [phone] Priors: Tech: Artem Gage @ [phone] Exams: CTA CHEST Contrast: IV Amt: 107 ML OPTIRAY 320 Accession Numbers: [id number] Referring Physician: REFERRED SELF Preliminary Findings Only See Final Report For Complete Findings CTA CHEST: Comparison is made to CT chest on 01/25/2021 and 02/14/2022. No pulmonary embolus identified. No aortic aneurysm or dissection. Trace left pleural effusion. Trace right-sided pneumothorax. Dependent and lower lung atelectasis. Persistent moderate to large hiatal hernia with surrounding gas foci which may be related to reported recent repair. Perforation cannot be entirely excluded. Pneumomediastinum with soft tissue gas extending into the neck as well as in the neck and supraclavicular soft tissues and right anterior chest wall. This may be related to recent surgery. Small gas foci in the upper abdomen may be related to recent surgery. Mild cardiomegaly. High-density contrast material within the colon causes artifact that somewhat limits evaluation. Epidural spinal stimulator catheters. Radiologist: Man Segura M.D. Study ready at 03:27 and initial results transmitted at 03:41 Results also transmitted to [facility] ([id number]) @ [phone] (Fax) Communications: Clear Time Type Notes Verify Receipt *This report constitutes a preliminary interpretation only. Non-acute findings felt to be unrelated to the clinical presentation may not be discussed in this report. The study will be interpreted and a final report will be generated by the local Radiologist the following shift. To reach the [facility] radiology department call [phone]. If a discrepancy is found between the preliminary and final interpretations of this study, please notify us via our Client Portal at [email or web address], under QA Exams. You can also fax this report with a description of the discrepancy, or include the final report, to our daytime fax number [phone]. If faxing, please indicate the severity of discrepancy using one of the following categories: [ ] 1 - Agree/Informational [ ] 2 - Unlikely to Affect Management [ ] 3 - Possible Eventual Change of Management [ ] 4 - Probable Immediate Change of Management For all other patient related information, please fax us at [phone]. [phone]
[2022-02-19] MEDS ORDERED: NITROGLYCERIN SL 0.4 MG/TAB TAB SL STA (23:18)
[2022-02-20 01:23] LABS: Basophils # (auto) 0.01 K/uL (0-0.2); Basophils % (auto) 0.1 %; Hematocrit (blood only) 35.7 % (42-52); Hemoglobin 11.9 g/dL (14.0-18.0); Immature Granulocytes # (auto) 0.02 K/uL (0.00-0.02); Immature Granulocytes % (auto) 0.3 %; Lymphocytes # (auto) 0.47 K/uL (1.2-3.4); Lymphocytes % (auto) 5.9 %; Mean Corpuscular Hemoglobin 28.5 pg (25-34); Mean Corpuscular Hgb Conc 33.3 g/dL (32-36); Mean Corpuscular Volume 85.4 fL (80-100); Monocytes # (auto) 0.47 K/uL (0.11-0.59); Monocytes % (auto) 5.9 %; Neutrophils # (auto) 7.01 K/uL (1.4-6.5); Neutrophils % (auto) 87.8 %; Platelet Count 267 K/uL (130-400); RDW Coefficient of Variation 13.9 % (11.5-14.5); Red Blood Count 4.18 M/uL (4.7-6.1); White Blood Count 7.98 K/uL (4.8-10.8)
[2022-02-20 01:45] LABS: Albumin Globulin Ratio 1.4 (0.9-2); Albumin Level 4.1 gm/dl (3.4-5.0); BUN Creatinine Ratio 12.9 (10-20); Bilirubin,Total 0.4 mg/dl (0.2-1.0); Calcium 8.8 mg/dl (8.5-10.1); Creatinine Clr Calc Pharmacy 67.6 ml/min; Est GFR (African American) 68.4 ml/min; Magnesium 1.8 mg/dl (1.7-2.4); Phosphorus 5.1 mg/dl (2.5-4.9); Potassium 4.4 mmol/L (3.5-5.1); Total Protein 7.1 gm/dl (6.0-8.3)
[2022-02-20 01:50] LABS: Troponin I High Sensitivity 24.3 pg/ml (0-20)
[2022-02-20] MEDS ORDERED: OPTIRAY 320 125ml IV ONE (01:54)
[2022-02-20] MEDS: ONDANSETRON INJ 2 MG/ML 2 ML VIAL IV PRN ×2 (03:18→18:06)
[2022-02-20] MEDS: HYDROmorphone INJ 1 MG/ML SYRINGE IV PRN ×7 (03:19→21:06)
[2022-02-20] MEDS: ACETAMINOPHEN 325 MG TAB PO PRN ×2 (07:38→21:06)
--- NOTE | 2022-02-20 08:05 | CT Scan Report ---
CT angio chest PE protocol CT DOSE: 509.61 mGy.cm HISTORY: 56 years-old Male with eval for PE. Acute shortness of breath with recent hernia repair on 02/19/2022 TECHNIQUE: Multiple CTA images of the chest were obtained after the intravenous administration of 107 ml Optiray. Coronal and sagittal MIPS were obtained from the axial data set and were submitted for review. All measurements were obtained according to NASCET criteria. A dose lowering technique was u tilized adhering to the principles of ALARA. COMPARISON: CTA chest 02/14/2022, upper GI series 02/16/2022. FINDINGS: CTA: Moderate cardiomegaly. No pericardial effusion. Coronary artery calcifications. No thoracic aortic an eurysm or dissection. There is patency of the imaged great vessels. Unremarkable pulmonary artery. No filling defects identified to suggest thromboembolic disease. CT CHEST: No thyroid nodule or lymphadenopathy. Trace left pleural effusion with dependent left greater than ri ght bibasilar linear consolidation. There is a trace right apical pneumothorax with pleural separatio n measuring up to 5 mm. No overt pulmonary edema, suspicious pulmonary nodules or masses. There is mo derate pneumomediastinum with subcutaneous emphysema tracking into the right chest wall, supraclavicu lar distributions and submandibular tissues. The mediastinum also surrounds the moderate sized hiatal hernia with small amount of upper abdominal pneumoperitoneum. Streak artifact from the retained ente evangelista contrast within the large bowel limits evaluation of the upper abdomen. Fluid, air and edema surr ounds the moderate sized hiatal hernia. Evaluation for perforation is limited without enteric contras t within the esophagus. Distal esophageal wall thickening. No acute fracture. Degenerative changes of the shoulders and spine. The imaged spinal stimulator catheter appears unremarkable. IMPRESSION: 1. Cardiomegaly without pulmonary emboli identified. 2. Trace left pleural effusion with left greater than right bibasilar consolidation suggestive of ate lectasis. Pneumonitis could appear similarly. 3. Moderate pneumomediastinum with associated subcutaneous emphysema of the chest wall, supraclavicul ar and submandibular tissues with small amount of upper abdominal pneumoperitoneum. 4. Small amount of free fluid with edema and extra luminal air surrounding the moderate sized hiatal hernia. These findings may be on a postsurgical basis, however a perforation could appear similarly. Follow-up is recommended. ACT 112: Negative or not required by law. The above report was generated using voice recognition software. It may contain grammatical, syntax o r spelling errors. Electronically signed by: Christopher Byers M.D. 02/20/2022 8:03 AM
[2022-02-20] MEDS: INSULIN ASPART PER UNIT SC SCH ×4 (09:10→20:53)
[2022-02-20] MEDS: ASPIRIN 81 MG ECTAB PO SCH (09:11)
[2022-02-20] MEDS: DULoxetine HCL 60 MG CAP PO SCH ×2 (09:11→20:02)
[2022-02-20] MEDS: ARIPIprazole 1 MG/ML ORAL SOLN 150 ML BTL PO SCH (09:11)
[2022-02-20] MEDS: PANTOprazole 40 MG TAB PO SCH ×2 (09:11→20:02)
[2022-02-20] MEDS: METOPROLOL TARTRATE 25 MG TAB PO SCH ×2 (09:11→20:03)
[2022-02-20] MEDS: FINASTERIDE 5 MG TAB PO SCH (09:12)
[2022-02-20] MEDS: allopurinoL 100 MG TAB PO SCH (09:12)
[2022-02-20] MEDS: FLUTICASONE FUROATE 200MCG 14 PUFFS/INHALER INH SCH (09:12)
[2022-02-20] MEDS: amLODIPine BESYLATE 5 MG TAB PO SCH (09:12)
[2022-02-20] MEDS: INSULIN GLARGINE SOLOSTAR 100 UNITS/ML 3 ML PEN SQ SCH (09:14)
[2022-02-20] MEDS: DOCUSATE SODIUM 100 MG CAP PO SCH ×2 (09:22→21:06)
[2022-02-20] MEDS: FAMOTIDINE 20 MG TAB PO SCH ×2 (09:23→21:06)
[2022-02-20] MEDS: LACTATED RINGER'S 1,000 ML IV SCH (12:24)
--- NOTE | 2022-02-20 13:17 | Surgery Progress Note ---
Date of Service February 20, 2022 Assessment & Plan (1) Hiatal hernia: Plan: Postoperative day #1 Doing as expected We will advance his diet to full liquids but he will not be able to advance past this for several weeks. I would like to see him back in the office in [address] Mixon covering for the weekend if any problems or questions Admission and Anticipated Discharge Date Admission Date: February 16, 2022 Subjective pt seen. Feeling okay now. Was having some chest pain last night. He is having some incisional pain but getting adequate pain medication. He is able to tolerate liquids with no nausea or vomiting. Physical Exam Physical Exam: Alert. No acute distress Abdomen is soft with expected incisional tenderness. The incisions all look good. Results & Data ([facility]) Vital Signs (Past 12 Hours) Vital Signs Temp Pulse Resp BP Pulse Ox 02/20/22 07:41 36.6 C 92 H 16 129/82 98 02/20/22 07:09 36.7 C 70 16 152/96 H 97 02/20/22 01:59 37 C 77 16 136/81 98 PG Care Time/CCT Total # of Minutes Spent Total Time Spent with Patient: Total time spent is greater than 50% in coordination of care (as documented) at patient's floor/unit and/or counseling patient: Coding Level of Care Code None Diagnoses Hiatal hernia K44.9
[2022-02-20] MEDS ORDERED: PROCHLORPERAZINE 10 MG in SYRINGE 8 ML IV PRN (16:45)
--- NOTE | 2022-02-20 16:48 | Hospitalist Progress Note ---
Date of Service February 20, 2022 Assessment & Plan (1) Hiatal hernia: Plan: chest pain with epigastric pain ongoing for years Cardiac workup unrevealing with recent cardiac cath this is despite PPI twice daily + carafate qid and H2 carmen. RUQ u/s without signs of gallstones/ biliary disease. he has a known, large hiatal hernia and had egd-confirmed esophagitis in 2020 via EGD by [facility]. [facility] consulted here- recommended upper GI series--this again showed a large intra-thoracic hiatal hernia and he had several episodes of reflux during the study. GI performed EGD which showed grade 3 paraesophageal hiatal hernia and recommended surgical eval -Now s/p hiatal hernia repair on 02/19 -Having a lot of expected postop pain with moderate pneumomediastinum and small right apical pneumothorax seen on CT chest performed postoperatively for severe chest pain -Increase frequency of IV Dilaudid to every 2 hours and consider COMBINATION OPERATOR pump if needed -Surgery advance diet to full liquids which is where he should remain for a couple of weeks post-op -Continue maintenance IVFs with LR but reduce rate to 70 mL/hr (2) Chest pain: Plan: Presented with chest pain progressively worsening for years Given his cardiac cath findings on 02/13, it is unlikely that his presenting symptoms were from ischemia. consulted Dr Leonardo Larson from [facility] who recommended an urgent limited echo to check LV wall motion. LV EF was preserved, and there were no wall motion abnormalities. EKG findings, known cardiac cath findings, and unchanged echo also support non- ischemic etiology for his symptoms. Further, there is no evidence for aortic dissection, PE, or clinical evidence of pericarditis. Chest pain secondary to large hiatal hernia which is now repaired as above Chest pain is now due to expected postoperative pain Continue pain medication as needed (3) Pneumomediastinum: Plan: Moderate, secondary to hiatal hernia repair No evidence of airway compromise from subcutaneous air Continue to monitor Pain control (4) Pneumothorax: Plan: Small right apical pneumothorax seen on CT chest postoperatively, 5 mm Continue supplemental O2 (5) Elevated troponin: Plan: Likely 2nd to cardiac cath performed on 02/13; and in particular performing FFR across the mid-LAD. ischemia unlikely. (6) Tricuspid regurgitation: Plan: Moderate on echo 2020. By report an echo via the shelter system more recently showed severe TR. He has been referred to the valve clinic at [facility]. Dr Larson advised once daily PO lasix in the event he has elevated RA pressures from the severe TR leading to abdominal symptoms from such but doubtful -- patient has had no change in abd symptoms since admission despite the lasix. -Hold Lasix in the perioperative period. (7) CAD (coronary artery disease): Plan: Known CAD. h/o acute SC 2000 s/p LAD stent. s/p cardiac cath 02/13/22 at [facility]. 50% mid-LAD lesion (in-stent stenosis). FFR 0.85 thus ischemia unlikely. Repeat echo here with normal LV wall motion. Continue statin. Continue beta carmen. Continue asa. Continue amlodipine. (8) Esophagitis: Plan: EGD/colonoscopy performed 05/2021 for anemia by [facility]. EGD showed hiatal hernia with esophagitis. Upper GI pathology could be the cause of his symptoms. Increased PPI to twice daily, and added carafate 1gm QID which is now discontinued Continue pepcid Appreciate [facility] consult. Upper GI results noted. EGD with hiatal hernia, otherwise normal (9) Sarcoidosis: Plan: No evidence of active disease on CT chest imaging. (10) Diabetes mellitus: Plan: Last a1c was fall 2020 -- 7.1%. Now - 7.9%. Cont lantus. Cont novolog SSI. (11) Hyperlipidemia: Plan: Cont statin. (12) History of CVA (cerebrovascular accident): Plan: Noted. Cont asa for secondary prevention. (13) BPH w urinary obs/LUTS: Plan: Cont alpha carmen (was taking flomax + prazosin - stopped latter - likely little benefit to dual alpha carmen therapy however I suspect he may be on prazosin for Psychiatric reasons). Cont finasteride. (14) Depression: Plan: likely with some schizoaffective d/o as well continue Abilify, duloxetine Plan: DVT proph- SCDs Dispo- continued stay for postoperative recovery, eventually back to the shelter Admission and Anticipated Discharge Date Admission Date: February 16, 2022 Subjective Patient having a lot of pain in his upper abdomen and chest. Prompted a CT angiogram of the chest last night by the overnight resident which was negative for PE but did show a small apical right-sided pneumothorax and moderate pneumomediastinum which is expected as per my discussion with surgery. He is still having 8-10/10 pain and requiring Dilaudid as often as possible and still not having good pain control. He did have 1 small episode of vomiting overnight he reports continued nausea. He is passing flatus but no stool today. Review of Systems Review of Systems: All systems reviewed & are unremarkable except as noted in HPI & below Physical Exam Constitutional: WD/WN, vitals as above Eyes: + anicteric sclerae ENMT: external ear and nose normal, oropharynx normal Neck: trachea midline, no thyromegaly Respiratory: normal respiratory effort, lungs clear to auscultation Cardiovascular: RRR, no murmur, no edema Chest (Breasts): Chest: normal inspection of chest Additional Comments: No crepitus palpable in the chest, supraclavicular or neck region Gastrointestinal (Abdomen): Inspection/Auscultation: normal bowel sounds; + abdomen abnormal to inspection (incisinal scar midline lower abdomen, multiple incisional wounds intact) and abdomen not distended Percussion/Palpation: + abdomen tender (In epigastric region without guarding or rebound) and abdomen soft Musculoskeletal: Extremities: extremities normal to inspection; no cyanosis and no clubbing Skin: no rashes, warm and dry Neurologic: moves all extremities and awake; no focal motor deficits Psychiatric: A+Ox3, euthymic affect Lymphatic: no lymphedema Results & Data Results & Data ([facility]) Vital Signs (Past 12 Hours) Vital Signs Temp Pulse Resp BP Pulse Ox 02/20/22 13:57 36.6 C 82 16 113/74 96 02/20/22 07:41 36.6 C 92 H 16 129/82 98 02/20/22 07:09 36.7 C 70 16 152/96 H 97 Laboratory Results 02/20/22 02/20/22 02/20/22 Range/Units 17:04 12:08 08:03 WBC (4.8-10.8) K/uL RBC (4.7-6.1) M/uL Hgb (14.0-18.0) g/dL Hct (42-52) % MCV (80-100) fL MCH (25-34) pg MCHC (32-36) g/dL RDW Std Deviation (36.4-46.3) fL RDW Coeff of Eliana (11.5-14.5) % Plt Count (130-400) K/uL MPV (7.4-10.4) fL Immature Gran % (Auto) % Neut % (Auto) % Lymph % (Auto) % [place] % (Auto) % Eos % (Auto) % Baso % (Auto) % Neut # (Auto) (1.4-6.5) K/uL Lymph # (Auto) (1.2-3.4) K/uL [place] # (Auto) (0.11-0.59) K/uL Eos # (Auto) (0-0.5) K/uL Baso # (Auto) (0-0.2) K/uL Immature Gran # (Auto) (0.00-0.02) K/uL Sodium (136-145) mmol/L Potassium (3.5-5.1) mmol/L Chloride (98-107) mmol/L Carbon Dioxide (21-32) mmol/L Anion Gap (3-11) BUN (6-23) mg/dl Creatinine (0.6-1.4) mg/dl Est Cr Clr Drug Dosing ml/min Est GFR ( Amer) ml/min Est GFR (Non-Af Amer) ml/min BUN/Creatinine Ratio (10-20) Glucose (70-99(Fasting)) mg/dl POC Glucose 76 116 H 103 H (70-99) mg/dl Calcium (8.5-10.1) mg/dl Phosphorus (2.5-4.9) mg/dl Magnesium (1.7-2.4) mg/dl Total Bilirubin (0.2-1.0) mg/dl AST (13-39) U/L ALT (7-52) U/L Alkaline Phosphatase (34-104) U/L Troponin I High Sens (0-20) pg/ml Total Protein (6.0-8.3) gm/dl Albumin (3.4-5.0) gm/dl Globulin (2.5-4.0) gm/dl Albumin/Globulin Ratio (0.9-2) 02/20/22 02/20/22 02/19/22 Range/Units 01:12 01:12 23:50 WBC 7.98 (4.8-10.8) K/uL RBC 4.18 L (4.7-6.1) M/uL Hgb 11.9 L (14.0-18.0) g/dL Hct 35.7 L (42-52) % MCV 85.4 (80-100) fL MCH 28.5 (25-34) pg MCHC 33.3 (32-36) g/dL RDW Std Deviation 43.0 (36.4-46.3) fL RDW Coeff of Eliana 13.9 (11.5-14.5) % Plt Count 267 (130-400) K/uL MPV 8.0 (7.4-10.4) fL Immature Gran % (Auto) 0.3 % Neut % (Auto) 87.8 % Lymph % (Auto) 5.9 % [place] % (Auto) 5.9 % Eos % (Auto) 0.0 % Baso % (Auto) 0.1 % Neut # (Auto) 7.01 H (1.4-6.5) K/uL Lymph # (Auto) 0.47 L (1.2-3.4) K/uL [place] # (Auto) 0.47 (0.11-0.59) K/uL Eos # (Auto) 0.00 (0-0.5) K/uL Baso # (Auto) 0.01 (0-0.2) K/uL Immature Gran # (Auto) 0.02 (0.00-0.02) K/uL Sodium 134 L (136-145) mmol/L Potassium 4.4 (3.5-5.1) mmol/L Chloride 102 (98-107) mmol/L Carbon Dioxide 24 (21-32) mmol/L Anion Gap 8 (3-11) BUN 17 (6-23) mg/dl Creatinine 1.32 (0.6-1.4) mg/dl Est Cr Clr Drug Dosing 67.6 ml/min Est GFR ( Amer) 68.4 ml/min Est GFR (Non-Af Amer) 59.0 ml/min BUN/Creatinine Ratio 12.9 (10-20) Glucose 132 H (70-99(Fasting)) mg/dl POC Glucose (70-99) mg/dl Calcium 8.8 (8.5-10.1) mg/dl Phosphorus 5.1 H (2.5-4.9) mg/dl Magnesium 1.8 (1.7-2.4) mg/dl Total Bilirubin 0.4 (0.2-1.0) mg/dl AST 98 H (13-39) U/L ALT 102 H (7-52) U/L Alkaline Phosphatase 69 (34-104) U/L Troponin I High Sens 24.3 H 24.2 H (0-20) pg/ml Total Protein 7.1 (6.0-8.3) gm/dl Albumin 4.1 (3.4-5.0) gm/dl Globulin 3.0 (2.5-4.0) gm/dl Albumin/Globulin Ratio 1.4 (0.9-2) / Range/Units 23:30 WBC (4.8-10.8) K/uL RBC (4.7-6.1) M/uL Hgb (14.0-18.0) g/dL Hct (42-52) % MCV (80-100) fL MCH (25-34) pg MCHC (32-36) g/dL RDW Std Deviation (36.4-46.3) fL RDW Coeff of Eliana (11.5-14.5) % Plt Count (130-400) K/uL MPV (7.4-10.4) fL Immature Gran % (Auto) % Neut % (Auto) % Lymph % (Auto) % [place] % (Auto) % Eos % (Auto) % Baso % (Auto) % Neut # (Auto) (1.4-6.5) K/uL Lymph # (Auto) (1.2-3.4) K/uL [place] # (Auto) (0.11-0.59) K/uL Eos # (Auto) (0-0.5) K/uL Baso # (Auto) (0-0.2) K/uL Immature Gran # (Auto) (0.00-0.02) K/uL Sodium (136-145) mmol/L Potassium (3.5-5.1) mmol/L Chloride (98-107) mmol/L Carbon Dioxide (21-32) mmol/L Anion Gap (3-11) BUN (6-23) mg/dl Creatinine (0.6-1.4) mg/dl Est Cr Clr Drug Dosing ml/min Est GFR ( Amer) ml/min Est GFR (Non-Af Amer) ml/min BUN/Creatinine Ratio (10-20) Glucose (70-99(Fasting)) mg/dl POC Glucose 133 H (70-99) mg/dl Calcium (8.5-10.1) mg/dl Phosphorus (2.5-4.9) mg/dl Magnesium (1.7-2.4) mg/dl Total Bilirubin (0.2-1.0) mg/dl AST (13-39) U/L ALT (7-52) U/L Alkaline Phosphatase (34-104) U/L Troponin I High Sens (0-20) pg/ml Total Protein (6.0-8.3) gm/dl Albumin (3.4-5.0) gm/dl Globulin (2.5-4.0) gm/dl Albumin/Globulin Ratio (0.9-2) PG Care Time/CCT Total # of Minutes Spent Total Time Spent with Patient: Total time spent is greater than 50% in coordination of care (as documented) at patient's floor/unit and/or counseling patient: Coding Level of Care Code 74031 Subseq Hosp Care Lvl 3 Diagnoses Hiatal hernia K44.9 Chest pain R07.9 Elevated troponin R77.8 Tricuspid regurgitation I07.1 Cardiac valve disease etiology: etiology unspecified CAD (coronary artery disease) I25.10 Esophagitis K20.90 Sarcoidosis D86.9 Diabetes mellitus E11.9 Hyperlipidemia E78.5 History of CVA (cerebrovascular accident) Z86.73 BPH w urinary obs/LUTS N40.1; N13.8 Depression F32.9 Pneumomediastinum J98.2 Pneumothorax J93.9 (1) Tricuspid regurgitation Cardiac valve disease etiology: etiology unspecified Qualified Code(s): I07.1 - Rheumatic tricuspid insufficiency
--- NOTE | 2022-02-20 18:08 | Electrocardiogram Report ---
Test Reason : Blood Pressure : / mmHG Vent. Rate : 094 BPM Atrial Rate : 094 BPM P-R Int : 164 ms QRS Dur : 118 ms QT Int : 392 ms P-R-T Axes : 047 -06 020 degrees QTc Int : 490 ms Normal sinus rhythm Incomplete right bundle branch block Prolonged QT Abnormal ECG When compared with ECG of 14-FEB-2022 08:36, T wave inversion no longer evident in Anterior leads Confirmed by Matthieu Anderson ([id number]) on 02/20/2022 6:08:19 PM Referred By: REFERRED SELF Confirmed By:Familia Anderson
[2022-02-20] MEDS: TAMSULOSIN HCL 0.4 MG CAP PO SCH (20:02)
[2022-02-20] MEDS: ROSUVASTATIN CALCIUM 20 MG TAB PO SCH (21:06)
[2022-02-21] MEDS: HYDROmorphone INJ 1 MG/ML SYRINGE IV PRN ×5 (01:34→22:12)
[2022-02-21] MEDS: LACTATED RINGER'S 1,000 ML IV SCH (01:34)
[2022-02-21 06:10] LABS: Basophils # (auto) 0.01 K/uL (0-0.2); Basophils % (auto) 0.1 %; Eosinophils # (auto) 0.06 K/uL (0-0.5); Eosinophils % (auto) 0.9 %; Hematocrit (blood only) 33.4 % (42-52); Immature Granulocytes # (auto) 0.02 K/uL (0.00-0.02); Immature Granulocytes % (auto) 0.3 %; Lymphocytes # (auto) 1.03 K/uL (1.2-3.4); Lymphocytes % (auto) 14.8 %; Mean Corpuscular Hemoglobin 27.6 pg (25-34); Mean Corpuscular Hgb Conc 32.9 g/dL (32-36); Mean Corpuscular Volume 83.7 fL (80-100); Mean Platelet Volume 7.8 fL (7.4-10.4); Monocytes # (auto) 0.63 K/uL (0.11-0.59); Neutrophils # (auto) 5.22 K/uL (1.4-6.5); Neutrophils % (auto) 74.9 %; Platelet Count 224 K/uL (130-400); RDW Coefficient of Variation 13.8 % (11.5-14.5); RDW Standard Deviation 42.2 fL (36.4-46.3); Red Blood Count 3.99 M/uL (4.7-6.1); White Blood Count 6.97 K/uL (4.8-10.8)
[2022-02-21 06:29] LABS: Albumin Globulin Ratio 1.4 (0.9-2); Albumin Level 3.7 gm/dl (3.4-5.0); BUN Creatinine Ratio 9.6 (10-20); Bilirubin,Total 0.6 mg/dl (0.2-1.0); Calcium 8.6 mg/dl (8.5-10.1); Creatinine Clr Calc Pharmacy 77.6 ml/min; Est GFR (African American) 80.9 ml/min; Est GFR (Non-African American) 69.8 ml/min; Globulin 2.6 gm/dl (2.5-4.0); Magnesium 1.6 mg/dl (1.7-2.4); Potassium 3.8 mmol/L (3.5-5.1); Total Protein 6.3 gm/dl (6.0-8.3)
--- NOTE | 2022-02-21 06:49 | Surgery Progress Note ---
Date of Service February 21, 2022 Assessment & Plan (1) History of repair of hiatal hernia: Plan: Patient is afebrile his vital signs are stable He is awake and alert He is tolerating some full liquids He is passing flatus but no bowel movement His pain appears to be more incisional pain Probably needs at least 1-2 more days in the hospital Will add some senna syrup Admission and Anticipated Discharge Date Admission Date: February 16, 2022 Results & Data ([facility]) Vital Signs (Past 12 Hours) Vital Signs Temp Pulse Resp BP Pulse Ox 02/21/22 01:36 94 H 24 95 02/20/22 20:05 37.1 C 95 H 18 130/81 97 PG Care Time/CCT Total # of Minutes Spent Total Time Spent with Patient: Total time spent is greater than 50% in coordination of care (as documented) at patient's floor/unit and/or counseling patient: Coding Level of Care Code None Diagnoses History of repair of hiatal hernia Z98.890; Z87.19
[2022-02-21] MEDS: PANTOprazole 40 MG TAB PO SCH ×2 (07:39→22:10)
[2022-02-21] MEDS: ARIPIprazole 1 MG/ML ORAL SOLN 150 ML BTL PO SCH (07:39)
[2022-02-21] MEDS: DULoxetine HCL 60 MG CAP PO SCH ×2 (07:39→22:10)
[2022-02-21] MEDS: allopurinoL 100 MG TAB PO SCH (07:39)
[2022-02-21] MEDS: ASPIRIN 81 MG ECTAB PO SCH (07:39)
[2022-02-21] MEDS: amLODIPine BESYLATE 5 MG TAB PO SCH (07:40)
[2022-02-21] MEDS: FINASTERIDE 5 MG TAB PO SCH (07:40)
[2022-02-21] MEDS: METOPROLOL TARTRATE 25 MG TAB PO SCH ×2 (07:40→22:10)
[2022-02-21] MEDS: FLUTICASONE FUROATE 200MCG 14 PUFFS/INHALER INH SCH (07:43)
[2022-02-21] MEDS: ACETAMINOPHEN 325 MG TAB PO PRN ×2 (07:51→20:36)
[2022-02-21] MEDS: FAMOTIDINE 20 MG TAB PO SCH ×2 (07:51→20:36)
[2022-02-21] MEDS: INSULIN ASPART PER UNIT SC SCH ×4 (09:16→20:57)
[2022-02-21] MEDS: SENNOSIDES 8.8 MG/5 ML UDC PO SCH ×2 (09:16→22:09)
[2022-02-21] MEDS: INSULIN GLARGINE SOLOSTAR 100 UNITS/ML 3 ML PEN SQ SCH (09:17)
--- NOTE | 2022-02-21 12:19 | Hospitalist Progress Note ---
Date of Service February 21, 2022 Assessment & Plan (1) Hiatal hernia: Plan: chest pain with epigastric pain ongoing for years Cardiac workup unrevealing with recent cardiac cath this is despite PPI twice daily + carafate qid and H2 carmen. RUQ u/s without signs of gallstones/ biliary disease. he has a known, large hiatal hernia and had egd-confirmed esophagitis in 2020 via EGD by [facility]. [facility] consulted here- recommended upper GI series--this again showed a large intra-thoracic hiatal hernia and he had several episodes of reflux during the study. GI performed EGD which showed grade 3 paraesophageal hiatal hernia and recommended surgical eval Now s/p hiatal hernia repair on 02/19 Having a lot of expected postop pain with moderate pneumomediastinum and small right apical pneumothorax seen on CT chest performed postoperatively for severe chest pain-pain improved today Had a BM on 02/20 -continue IV Dilaudid to every 2 hours, oxycodone and tylenol prn -Surgery recommends full liquids diet ONLY for a couple of weeks post-op -dc maintenance IVFs -follow CBC, CMP, Mag, Phos -continue bowel regimen with senna syrup, docusate -continue PPI bid (2) Chest pain: Plan: Presented with chest pain progressively worsening for years Had cardiac cath on 02/13 which ruled out ischemia as cause consulted Dr Leonardo Larson from [facility] who recommended an urgent limited echo to check LV wall motion. LV EF was preserved, and there were no wall motion abnormalities. EKG findings, known cardiac cath findings, and unchanged echo also support non- ischemic etiology for his symptoms. Further, there is no evidence for aortic dissection, PE, or clinical evidence of pericarditis. Chest pain secondary to large hiatal hernia which is now repaired as above Chest pain is now due to expected postoperative pain Continue pain medication as needed (3) Pneumomediastinum: Plan: Moderate, secondary to hiatal hernia repair No evidence of airway compromise from subcutaneous air Continue to monitor, check CXR in AM Pain control (4) Transaminitis: Plan: AST and ALT both elevated since surgery but trending downward. There was manipulation of the liver during surgery so seems expected follow LFTs in AM (5) Pneumothorax: Plan: Small right apical pneumothorax seen on CT chest postoperatively, 5 mm Continue supplemental O2 as needed check CXR in AM (6) Elevated troponin: Plan: Likely 2nd to cardiac cath performed on 02/13; and in particular performing FFR across the mid-LAD. ischemia unlikely. (7) Tricuspid regurgitation: Plan: Moderate on echo 2020. [facility] more recently showed severe TR. He has been referred to the valve clinic at [facility]. Dr Larson advised once daily PO lasix in the event he has elevated RA pressures from the severe TR leading to abdominal symptoms from such but doubtful -- patient has had no change in abd symptoms since admission despite the lasix. -Hold Lasix in the perioperative period. (8) CAD (coronary artery disease): Plan: Known CAD. h/o acute OR 2000 s/p LAD stent. s/p cardiac cath 02/13/22 at [facility]. 50% mid-LAD lesion (in-stent stenosis). FFR 0.85 thus ischemia unlikely. Repeat echo here with normal LV wall motion. Continue statin. Continue beta carmen. Continue asa. Continue amlodipine. (9) Esophagitis: Plan: EGD/colonoscopy performed 05/2021 for anemia by Augustine Romero. EGD showed hiatal hernia with esophagitis. Upper GI pathology could be the cause of his symptoms. EGD this admission neg for esophagitis carafate dcd continue PPI and pepcid bid (10) Sarcoidosis: Plan: No evidence of active disease on CT chest imaging. (11) Diabetes mellitus: Plan: Last a1c was fall 2020 -- 7.1%. Now - 7.9%. Cont lantus. Cont novolog SSI. (12) Hyperlipidemia: Plan: Cont statin. (13) History of CVA (cerebrovascular accident): Plan: Noted. Cont asa for secondary prevention. (14) BPH w urinary obs/LUTS: Plan: Cont alpha carmen (was taking flomax + prazosin - stopped latter - likely little benefit to dual alpha carmen therapy however I suspect he may be on prazosin for Psychiatric reasons). Cont finasteride. (15) Depression: Plan: likely with some schizoaffective d/o as well continue Abilify, duloxetine Plan: DVT proph- SCDs Dispo- continued stay for postoperative recovery, [facility] Admission and Anticipated Discharge Date Admission Date: February 16, 2022 Subjective Pt reports he was finally able to get some sleep last night, pain in chest and shoulders still present but is currently a 5/10 in severity. No nausea today. Moved his bowels overnight as per RN notes. Review of Systems Review of Systems: All systems reviewed & are unremarkable except as noted in HPI & below Physical Exam Constitutional: WD/WN, vitals as above Eyes: + anicteric sclerae Neck: trachea midline, no thyromegaly Respiratory: normal respiratory effort, lungs clear to auscultation Cardiovascular: RRR, no murmur, no edema Chest (Breasts): Chest: normal inspection of chest Additional Comments: no crepitus palpable in upper chest and neck Gastrointestinal (Abdomen): Inspection/Auscultation: normal bowel sounds; + abdomen abnormal to inspection (incisinal scar midline lower abdomen, multiple incisional wounds intact) and abdomen not distended Percussion/Palpation: + abdomen tender (In epigastric region without guarding or rebound) and abdomen soft Musculoskeletal: Extremities: extremities normal to inspection; no cyanosis and no clubbing Skin: no rashes, warm and dry Neurologic: moves all extremities and awake; no focal motor deficits Psychiatric: A+Ox3, euthymic affect Lymphatic: no lymphedema Results & Data Results & Data ([facility]) Vital Signs (Past 12 Hours) Vital Signs Temp Pulse Resp BP Pulse Ox 02/21/22 07:45 37.8 C H 102 H 16 152/90 H 91 02/21/22 01:36 94 H 24 95 Laboratory Results 02/21/22 02/21/22 02/21/22 Range/Units 08:18 05:57 05:57 WBC 6.97 (4.8-10.8) K/uL RBC 3.99 L (4.7-6.1) M/uL Hgb 11.0 L (14.0-18.0) g/dL Hct 33.4 L (42-52) % MCV 83.7 (80-100) fL MCH 27.6 (25-34) pg MCHC 32.9 (32-36) g/dL RDW Std Deviation 42.2 (36.4-46.3) fL RDW Coeff of Eliana 13.8 (11.5-14.5) % Plt Count 224 (130-400) K/uL MPV 7.8 (7.4-10.4) fL Immature Gran % (Auto) 0.3 % Neut % (Auto) 74.9 % Lymph % (Auto) 14.8 % Simpson % (Auto) 9.0 % Eos % (Auto) 0.9 % Baso % (Auto) 0.1 % Neut # (Auto) 5.22 (1.4-6.5) K/uL Lymph # (Auto) 1.03 L (1.2-3.4) K/uL Simpson # (Auto) 0.63 H (0.11-0.59) K/uL Eos # (Auto) 0.06 (0-0.5) K/uL Baso # (Auto) 0.01 (0-0.2) K/uL Immature Gran # (Auto) 0.02 (0.00-0.02) K/uL Sodium 131 L (136-145) mmol/L Potassium 3.8 (3.5-5.1) mmol/L Chloride 98 (98-107) mmol/L Carbon Dioxide 26 (21-32) mmol/L Anion Gap 7 (3-11) BUN 11 (6-23) mg/dl Creatinine 1.15 (0.6-1.4) mg/dl Est Cr Clr Drug Dosing 77.6 ml/min Est GFR ( Amer) 80.9 ml/min Est GFR (Non-Af Amer) 69.8 ml/min BUN/Creatinine Ratio 9.6 L (10-20) Glucose 121 H (70-99(Fasting)) mg/dl POC Glucose 142 H (70-99) mg/dl Calcium 8.6 (8.5-10.1) mg/dl Magnesium 1.6 L (1.7-2.4) mg/dl Total Bilirubin 0.6 (0.2-1.0) mg/dl AST 131 H (13-39) U/L ALT 108 H (7-52) U/L Alkaline Phosphatase 57 (34-104) U/L Total Protein 6.3 (6.0-8.3) gm/dl Albumin 3.7 (3.4-5.0) gm/dl Globulin 2.6 (2.5-4.0) gm/dl Albumin/Globulin Ratio 1.4 (0.9-2) 05/20/22 05/20/22 Range/Units 20:29 17:04 WBC (4.8-10.8) K/uL RBC (4.7-6.1) M/uL Hgb (14.0-18.0) g/dL Hct (42-52) % MCV (80-100) fL MCH (25-34) pg MCHC (32-36) g/dL RDW Std Deviation (36.4-46.3) fL RDW Coeff of Eliana (11.5-14.5) % Plt Count (130-400) K/uL MPV (7.4-10.4) fL Immature Gran % (Auto) % Neut % (Auto) % Lymph % (Auto) % Simpson % (Auto) % Eos % (Auto) % Baso % (Auto) % Neut # (Auto) (1.4-6.5) K/uL Lymph # (Auto) (1.2-3.4) K/uL Simpson # (Auto) (0.11-0.59) K/uL Eos # (Auto) (0-0.5) K/uL Baso # (Auto) (0-0.2) K/uL Immature Gran # (Auto) (0.00-0.02) K/uL Sodium (136-145) mmol/L Potassium (3.5-5.1) mmol/L Chloride (98-107) mmol/L Carbon Dioxide (21-32) mmol/L Anion Gap (3-11) BUN (6-23) mg/dl Creatinine (0.6-1.4) mg/dl Est Cr Clr Drug Dosing ml/min Est GFR ( Amer) ml/min Est GFR (Non-Af Amer) ml/min BUN/Creatinine Ratio (10-20) Glucose (70-99(Fasting)) mg/dl POC Glucose 153 H 76 (70-99) mg/dl Calcium (8.5-10.1) mg/dl Magnesium (1.7-2.4) mg/dl Total Bilirubin (0.2-1.0) mg/dl AST (13-39) U/L ALT (7-52) U/L Alkaline Phosphatase (34-104) U/L Total Protein (6.0-8.3) gm/dl Albumin (3.4-5.0) gm/dl Globulin (2.5-4.0) gm/dl Albumin/Globulin Ratio (0.9-2) PG Care Time/CCT Total # of Minutes Spent Total Time Spent with Patient: Total time spent is greater than 50% in coordination of care (as documented) at patient's floor/unit and/or counseling patient: Coding Level of Care Code 53741 Subseq Hosp Care Lvl 3 Diagnoses Hiatal hernia K44.9 Chest pain R07.9 Pneumomediastinum J98.2 Pneumothorax J93.9 Elevated troponin R77.8 Tricuspid regurgitation I07.1 Cardiac valve disease etiology: etiology unspecified CAD (coronary artery disease) I25.10 Esophagitis K20.90 Sarcoidosis D86.9 Diabetes mellitus E11.9 Hyperlipidemia E78.5 History of CVA (cerebrovascular accident) Z86.73 BPH w urinary obs/LUTS N40.1; N13.8 Depression F32.9 Transaminitis R74.01 (1) Tricuspid regurgitation Cardiac valve disease etiology: etiology unspecified Qualified Code(s): I07.1 - Rheumatic tricuspid insufficiency
[2022-02-21] MEDS: oxyCODONE HCL IR 5 MG TAB (IMMEDIATE RELEASE) PO PRN ×2 (15:59→20:36)
[2022-02-21] MEDS: ALUMINUM/MAGNESIUM SUSP 30 ML UDC PO PRN (22:08)
[2022-02-21] MEDS: ROSUVASTATIN CALCIUM 20 MG TAB PO SCH (22:10)
[2022-02-21] MEDS: TAMSULOSIN HCL 0.4 MG CAP PO SCH (22:10)
[2022-02-21] MEDS: SIMETHICONE 80 MG CHEW PO PRN (22:16)
[2022-02-22] MEDS: SIMETHICONE 80 MG CHEW PO PRN ×2 (05:51→19:50)
[2022-02-22] MEDS: oxyCODONE HCL IR 5 MG TAB (IMMEDIATE RELEASE) PO PRN ×4 (05:56→21:22)
--- NOTE | 2022-02-22 06:19 | Surgery Progress Note ---
Date of Service February 22, 2022 Assessment & Plan (1) History of repair of hiatal hernia: Plan: Patient appears to be very comfortable this morning Resting in bed-says he feels much better than 2 to 3 days ago Tolerating liquids and bowels are moving Continues to require some IV pain medication at night Overall making some slow progress Admission and Anticipated Discharge Date Admission Date: February 16, 2022 Results & Data ([facility]) Vital Signs (Past 12 Hours) Vital Signs Temp Pulse Resp BP Pulse Ox 02/22/22 05:56 103 H 22 93 02/21/22 21:44 37.4 C 103 H 18 118/67 93 02/21/22 20:41 37.7 C H 108 H 15 113/75 92 02/21/22 20:11 116 H 20 114/74 92 PG Care Time/CCT Total # of Minutes Spent Total Time Spent with Patient: Total time spent is greater than 50% in coordination of care (as documented) at patient's floor/unit and/or counseling patient: Coding Level of Care Code None Diagnoses History of repair of hiatal hernia Z98.890; Z87.19
--- NOTE | 2022-02-22 06:54 | XRay Report ---
XR chest 1V portable CLINICAL HISTORY: f/u pneumomediastinum and PTX COMPARISON STUDY: Chest CT February 20, 2022. FINDINGS: Intracanalicular electrodes are noted. There is also barium within the splenic flexure of t he colon. Cardiomegaly is unchanged. A small amount of pneumomediastinum is again noted. Soft tissue gas within the right lower neck is noted. Possible trace right apical pneumothorax is similar to prio r CT. Bibasilar opacities have increased. There is a possible small left pleural effusion. No evidenc e for pulmonary edema. IMPRESSION: 1. Small amount of pneumomediastinum and possible trace right apical pneumothorax, similar to prior c hest CT will allow for differences in technique. 2. Increase in left basilar opacity which could reflect consolidation or atelectasis. Suspected small left pleural effusion. 3. Right infrahilar opacity which favors atelectasis. ACT 112: Negative or not required by law. Electronically signed by: Ferny England M.D. 02/22/2022 6:51 AM
[2022-02-22] MEDS: METOPROLOL TARTRATE 25 MG TAB PO SCH ×2 (08:02→20:00)
[2022-02-22] MEDS: FINASTERIDE 5 MG TAB PO SCH (08:02)
[2022-02-22] MEDS: allopurinoL 100 MG TAB PO SCH (08:03)
[2022-02-22] MEDS: amLODIPine BESYLATE 5 MG TAB PO SCH (08:03)
[2022-02-22] MEDS: PANTOprazole 40 MG TAB PO SCH ×2 (08:03→19:51)
[2022-02-22] MEDS: ARIPIprazole 1 MG/ML ORAL SOLN 150 ML BTL PO SCH (08:03)
[2022-02-22] MEDS: DULoxetine HCL 60 MG CAP PO SCH ×2 (08:03→19:50)
[2022-02-22] MEDS: SENNOSIDES 8.8 MG/5 ML UDC PO SCH ×2 (08:03→19:51)
[2022-02-22] MEDS: ASPIRIN 81 MG ECTAB PO SCH (08:03)
[2022-02-22] MEDS: FLUTICASONE FUROATE 200MCG 14 PUFFS/INHALER INH SCH (08:04)
[2022-02-22] MEDS: HYDROmorphone INJ 1 MG/ML SYRINGE IV PRN (08:08)
[2022-02-22] MEDS: INSULIN GLARGINE SOLOSTAR 100 UNITS/ML 3 ML PEN SQ SCH (08:57)
[2022-02-22] MEDS: INSULIN ASPART PER UNIT SC SCH ×4 (08:57→21:39)
[2022-02-22] MEDS: FAMOTIDINE 20 MG TAB PO SCH ×2 (09:31→20:00)
--- NOTE | 2022-02-22 09:58 | Hospitalist Progress Note ---
Date of Service February 22, 2022 Assessment & Plan (1) Hiatal hernia: Plan: chest pain with epigastric pain ongoing for years Cardiac workup unrevealing with recent cardiac cath this is despite PPI twice daily + carafate qid and H2 carmen. RUQ u/s without signs of gallstones/ biliary disease. he has a known, large hiatal hernia and had egd-confirmed esophagitis in 2020 via EGD by [facility]. [facility] consulted here- recommended upper GI series--this again showed a large intra-thoracic hiatal hernia and he had several episodes of reflux during the study. GI performed EGD which showed grade 3 paraesophageal hiatal hernia and recommended surgical eval Now s/p hiatal hernia repair on 02/19 Having a lot of expected postop pain with moderate pneumomediastinum and small right apical pneumothorax seen on CT chest performed postoperatively for severe chest pain-somewhat improved but continues with pain mostly from subcut air in shoulders Had a BM on 02/20 and 02/21 -continue IV Dilaudid every 2 hours prn, oxycodone and tylenol prn -Surgery recommends full liquids diet ONLY for a couple of weeks post-op -no IVFs needed but continue holding lasix -follow CBC, CMP, Mag, Phos daily-labs still pending today, will replace lytes as needed -continue bowel regimen with senna syrup, add liquid docusate -continue PPI bid (2) Chest pain: Plan: Presented with chest pain progressively worsening for years Had cardiac cath on 02/13 which ruled out ischemia as cause consulted Dr Leonardo Larson from [facility] who recommended an urgent limited echo to check LV wall motion. LV EF was preserved, and there were no wall motion abnormalities. EKG findings, known cardiac cath findings, and unchanged echo also support non- ischemic etiology for his symptoms. Further, there is no evidence for aortic dissection, PE, or clinical evidence of pericarditis. Chest pain secondary to large hiatal hernia which is now repaired as above Chest pain is now due to expected postoperative pain Continue pain medication as needed (3) Pneumomediastinum: Plan: Moderate, secondary to hiatal hernia repair No evidence of airway compromise from subcutaneous air having pain from subcut air Continue to monitor, check CXR in AM Pain control encouraged to sit upright more and be more aggressive with ICS (4) Transaminitis: Plan: AST and ALT both elevated since surgery but trending downward. There was manipulation of the liver during surgery so seems expected follow LFTs -still pending today (5) Pneumothorax: Plan: Small right apical pneumothorax seen on CT chest postoperatively, 5 mm Continue supplemental O2 as needed-not hypoxic, none needed CXR 02/22 with possible residual small right PTX (6) Elevated troponin: Plan: Likely 2nd to cardiac cath performed on 02/13; and in particular performing FFR across the mid-LAD. ischemia unlikely. (7) Tricuspid regurgitation: Plan: Moderate on echo 2020. By report an echo via the alf system more recently showed severe TR. He has been referred to the valve clinic at [facility]. Dr Larson advised once daily PO lasix in the event he has elevated RA pressures from the severe TR leading to abdominal symptoms from such but doubtful -- patient has had no change in abd symptoms since admission despite the lasix. -Hold Lasix in the perioperative period. (8) CAD (coronary artery disease): Plan: Known CAD. h/o acute [place] 2000 s/p LAD stent. s/p cardiac cath 02/13/22 at [facility]. 50% mid-LAD lesion (in-stent stenosis). FFR 0.85 thus ischemia unlikely. Repeat echo here with normal LV wall motion. Continue statin. Continue beta carmen. Continue asa. Continue amlodipine. (9) Esophagitis: Plan: EGD/colonoscopy performed 05/2021 for anemia by Augustine Roemro. EGD s howed hiatal hernia with esophagitis. Upper GI pathology could be the cause of his symptoms. EGD this admission neg for esophagitis carafate dcd continue PPI and pepcid bid (10) Sarcoidosis: Plan: No evidence of active disease on CT chest imaging. (11) Diabetes mellitus: Plan: Last a1c was fall 2020 -- 7.1%. Now - 7.9%. Cont lantus. Cont novolog SSI. (12) Hyperlipidemia: Plan: Cont statin. (13) History of CVA (cerebrovascular accident): Plan: Noted. Cont asa for secondary prevention. (14) BPH w urinary obs/LUTS: Plan: Cont alpha carmen (was taking flomax + prazosin - stopped latter - likely little benefit to dual alpha carmen therapy however I suspect he may be on prazosin for Psychiatric reasons). Cont finasteride. (15) Depression: Plan: likely with some schizoaffective d/o as well continue Abilify, duloxetine (16) Gout: Plan: continue allopurinol no acute issues Plan: DVT proph- SCDs Dispo- continued stay for postoperative recovery, eventually back to the alf. Detention only able to use T#3 for opioids so must be able to wean him down to pain control with T#3 Admission and Anticipated Discharge Date Admission Date: February 16, 2022 Subjective Feels 8/10 pain in chest and left shoulder mostly with sitting up. Discussed pneumomediastinum and air escaping through skin. He is using IS but reports can 't get the jefe very high on IS. Moved bowels yesterday. Tolerating liquids diet. Still requiring oxycodone 10 and IV dilaudid around the clock Review of Systems Review of Systems: All systems reviewed & are unremarkable except as noted in HPI & below Physical Exam Constitutional: WD/WN, vitals as above Eyes: + anicteric sclerae Neck: trachea midline, no thyromegaly Respiratory: + abnormal respiratory effort (poor insp effort), no cough and not tachypneic Auscultation: + diminished lung sounds (at bases); no wheezes Cardiovascular: RRR, no murmur, no edema Chest (Breasts): Chest: normal inspection of chest Additional Comments: no crepitus palpable in neck Gastrointestinal (Abdomen): Inspection/Auscultation: normal bowel sounds; + a bdomen abnormal to inspection (incisinal scar midline lower abdomen, multiple incisional wounds intact) and abdomen not distended Percussion/Palpation: + abdomen tender (In epigastric region without guarding or rebound) and abdomen soft Musculoskeletal: Extremities: extremities normal to inspection; no cyanosis and no clubbing Skin: no rashes, warm and dry Neurologic: moves all extremities and awake; no focal motor deficits Psychiatric: A+Ox3, euthymic affect Lymphatic: no lymphedema Results & Data Results & Data ([facility]) Vital Signs (Past 12 Hours) Vital Signs Temp Pulse Resp BP Pulse Ox 02/22/22 07:46 37.5 C 97 H 18 117/76 91 02/22/22 05:56 103 H 22 93 Laboratory Results 05/22/22 05/22/22 05/22/22 Range/Units 09:34 09:34 08:20 WBC Pending RBC Pending Hgb Pending Hct Pending MCV Pending MCH Pending MCHC Pending Plt Count Pending Sodium Pending Potassium Pending Chloride Pending Carbon Dioxide Pending Anion Gap Pending BUN Pending Creatinine Pending Est Cr Clr Drug Dosing Pending Est GFR ( Amer) Pending Est GFR (Non-Af Amer) Pending BUN/Creatinine Ratio Pending Glucose Pending POC Glucose 109 H (70-99) mg/dl Calcium Pending Phosphorus Pending Magnesium Pending Total Bilirubin Pending AST Pending ALT Pending Alkaline Phosphatase Pending Total Protein Pending Albumin Pending Globulin Pending Albumin/Globulin Ratio Pending 02/21/22 02/21/22 02/21/22 Range/Units 20:43 17:36 12:17 WBC RBC Hgb Hct MCV MCH MCHC Plt Count Sodium Potassium Chloride Carbon Dioxide Anion Gap BUN Creatinine Est Cr Clr Drug Dosing Est GFR ( Amer) Est GFR (Non-Af Amer) BUN/Creatinine Ratio Glucose POC Glucose 122 H 136 H 117 H (70-99) mg/dl Calcium Phosphorus Magnesium Total Bilirubin AST ALT Alkaline Phosphatase Total Protein Albumin Globulin Albumin/Globulin Ratio Diagnostic Findings CXR images personally reviewed and agree with the following report: Chest X-Ray 02/22/22 07:00 XR chest 1V portable CLINICAL HISTORY: f/u pneumomediastinum and PTX COMPARISON STUDY: Chest CT February 20, 2022. FINDINGS: Intracanalicular electrodes are noted. There is also barium within the splenic flexure of the colon. Cardiomegaly is unchanged. A small amount of pneumomediastinum is again noted. Soft tissue gas within the right lower neck is noted. Possible trace right apical pneumothorax is similar to prior CT. Bibasilar opacities have increased. There is a possible small left pleural effusion. No evidence for pulmonary edema. IMPRESSION: 1. Small amount of pneumomediastinum and possible trace right apical pneumothorax, similar to prior chest CT will allow for differences in technique. 2. Increase in left basilar opacity which could reflect consolidation or atelectasis. Suspected small left pleural effusion. 3. Right infrahilar opacity which favors atelectasis. ACT 112: Negative or not required by law. Electronically signed by: Ferny England M.D. 02/22/2022 6:51 AM PG Care Time/CCT Total # of Minutes Spent Total Time Spent with Patient: Total time spent is greater than 50% in coordination of care (as documented) at patient's floor/unit and/or counseling patient: Coding Level of Care Code 39271 Subseq Hosp Care Lvl 2 Diagnoses Hiatal hernia K44.9 Chest pain R07.9 Pneumomediastinum J98.2 Transaminitis R74.01 Pneumothorax J93.9 Elevated troponin R77.8 Tricuspid regurgitation I07.1 Cardiac valve disease etiology: etiology unspecified CAD (coronary artery disease) I25.10 Esophagitis K20.90 Sarcoidosis D86.9 Diabetes mellitus E11.9 Hyperlipidemia E78.5 History of CVA (cerebrovascular accident) Z86.73 BPH w urinary obs/LUTS N40.1; N13.8 Depression F32.9 Gout M10.9 (1) Tricuspid regurgitation Cardiac valve disease etiology: etiology unspecified Qualified Code(s): I07.1 - Rheumatic tricuspid insufficiency
[2022-02-22 10:11] LABS: Basophils # (auto) 0.01 K/uL (0-0.2); Basophils % (auto) 0.1 %; Eosinophils # (auto) 0.11 K/uL (0-0.5); Eosinophils % (auto) 1.5 %; Hematocrit (blood only) 32.1 % (42-52); Hemoglobin 10.5 g/dL (14.0-18.0); Immature Granulocytes # (auto) 0.01 K/uL (0.00-0.02); Immature Granulocytes % (auto) 0.1 %; Lymphocytes # (auto) 0.72 K/uL (1.2-3.4); Lymphocytes % (auto) 9.8 %; Mean Corpuscular Hemoglobin 27.2 pg (25-34); Mean Corpuscular Hgb Conc 32.7 g/dL (32-36); Mean Corpuscular Volume 83.2 fL (80-100); Mean Platelet Volume 7.9 fL (7.4-10.4); Monocytes # (auto) 0.49 K/uL (0.11-0.59); Monocytes % (auto) 6.6 %; Neutrophils # (auto) 6.03 K/uL (1.4-6.5); Neutrophils % (auto) 81.9 %; Platelet Count 240 K/uL (130-400); RDW Coefficient of Variation 13.9 % (11.5-14.5); Red Blood Count 3.86 M/uL (4.7-6.1); White Blood Count 7.37 K/uL (4.8-10.8)
[2022-02-22 10:16] LABS: Albumin Globulin Ratio 1.3 (0.9-2); Albumin Level 3.7 gm/dl (3.4-5.0); BUN Creatinine Ratio 7.4 (10-20); Bilirubin,Total 0.6 mg/dl (0.2-1.0); Calcium 8.7 mg/dl (8.5-10.1); Creatinine Clr Calc Pharmacy 73.2 ml/min; Est GFR (African American) 75.3 ml/min; Est GFR (Non-African American) 64.9 ml/min; Globulin 2.8 gm/dl (2.5-4.0); Magnesium 1.6 mg/dl (1.7-2.4); Phosphorus 2.3 mg/dl (2.5-4.9); Potassium 3.6 mmol/L (3.5-5.1); Total Protein 6.5 gm/dl (6.0-8.3)
[2022-02-22] MEDS: DOCUSATE SODIUM SYRUP 100 MG/10 ML UDC PO SCH ×2 (11:50→20:00)
--- NOTE | 2022-02-22 15:01 | Electrocardiogram Report ---
Test Reason : Blood Pressure : / mmHG Vent. Rate : 098 BPM Atrial Rate : 098 BPM P-R Int : 158 ms QRS Dur : 128 ms QT Int : 364 ms P-R-T Axes : 055 -03 040 degrees QTc Int : 464 ms Normal sinus rhythm Right bundle branch block Abnormal ECG When compared with ECG of 19-FEB-2022 23:10, Right bundle branch block has replaced Non-specific intra-ventricular conduction delay Confirmed by Amanuel Lanier ([id number]) on 02/22/2022 3:01:22 PM Referred By: REFERRED SELF Confirmed By:Amanuel Lanier
[2022-02-22] MEDS ORDERED: POTASSIUM PHOS 3 MMOL/1 ML INFUSION IV STA (16:48)
[2022-02-22] MEDS ORDERED: PIPERACILL/TAZOBAC CONSULT ACTIVE PRN (16:52)
[2022-02-22] MEDS ORDERED: VANCOMYCIN CONSULT ACTIVE PRN (16:52)
[2022-02-22] MEDS ORDERED: POTASSIUM PHOSPHATE 15 MMOL in SODIUM CHLORIDE 0.9% 250 ML IV ONE (17:00)
[2022-02-22] MEDS ORDERED: PIPERACILLIN/TAZOBACTAM 3.375 GM in DEXTROSE 5% 100 ML IV STA (17:03)
[2022-02-22] MEDS ORDERED: VANCOMYCIN HCL 1,750 MG in SODIUM CHLORIDE 0.9% 500 ML IV STA (17:04)
[2022-02-22] MEDS: MAGNESIUM SULFATE / D5W 1 GM/100 ML BAG IV SCH ×2 (18:31→19:46)
[2022-02-22] MEDS: ACETAMINOPHEN 325 MG TAB PO PRN (18:47)
[2022-02-22] MEDS: ROSUVASTATIN CALCIUM 20 MG TAB PO SCH (19:50)
[2022-02-22] MEDS: TAMSULOSIN HCL 0.4 MG CAP PO SCH (19:50)
--- NOTE | 2022-02-22 21:33 | Pharmacy Report ---
Pharmacy Vanc AUC Short Note - Date of Service February 22, 2022 - Assessment & Plan Assessment 56 year old M receiving Vancomycin and Zosyn for treatment of pulmonary infection. * PMHx significant for incarceration and T2DM. * Febrile at 38.1oC today. No leukocytosis. Renal fxn stable. * Blood cultures pending. MRSA nasal swab negative. Plan Vancomycin * AUC/TIFFANY is the preferred PK/PD target for vancomycin * AUC guided dosing is effective and associated with decreased risk of nephrotoxicity compared to traditional trough targets * Loading dose of 1750 mg IV x 1 * Maintenance dose of 1000 mg IV every 12 hours is predicted to achieve target AUC/TIFFANY of 400-600 mg/L.hr and may be associated with a 16% risk of nephrotoxicity * Trough level ordered for 02/24/22 prior to the 0600 dose Zosyn * 3.375 g IV loading dose x 1 followed by 3.375 g IV every 8 hours Pharmacy will continue to follow and will adjust dose/frequency as necessary. Thank you.
[2022-02-22] MEDS: ALUMINUM/MAGNESIUM SUSP 30 ML UDC PO PRN (22:55)
[2022-02-22] MEDS: PIPERACILLIN/TAZOBACTAM 3.375 GM in DEXTROSE 5% 100 ML IV SCH (23:16)
[2022-02-23] MEDS: VANCOMYCIN HCL 1,000 MG in SODIUM CHLORIDE 0.9% 250 ML IV SCH ×2 (06:40→18:37)
[2022-02-23] MEDS: METOPROLOL TARTRATE 25 MG TAB PO SCH ×2 (08:02→20:09)
[2022-02-23] MEDS: DOCUSATE SODIUM SYRUP 100 MG/10 ML UDC PO SCH ×2 (08:02→20:08)
[2022-02-23] MEDS: ARIPIprazole 1 MG/ML ORAL SOLN 150 ML BTL PO SCH (08:03)
[2022-02-23] MEDS: ASPIRIN 81 MG ECTAB PO SCH (08:03)
[2022-02-23] MEDS: DULoxetine HCL 60 MG CAP PO SCH ×2 (08:04→20:09)
[2022-02-23] MEDS: PANTOprazole 40 MG TAB PO SCH ×2 (08:04→20:08)
[2022-02-23] MEDS: FINASTERIDE 5 MG TAB PO SCH (08:04)
[2022-02-23] MEDS: allopurinoL 100 MG TAB PO SCH (08:04)
[2022-02-23] MEDS: amLODIPine BESYLATE 5 MG TAB PO SCH (08:04)
[2022-02-23] MEDS: FLUTICASONE FUROATE 200MCG 14 PUFFS/INHALER INH SCH (08:05)
[2022-02-23 08:25] LABS: Basophils # (auto) 0.01 K/uL (0-0.2); Basophils % (auto) 0.2 %; Eosinophils # (auto) 0.11 K/uL (0-0.5); Eosinophils % (auto) 1.9 %; Hematocrit (blood only) 28.4 % (42-52); Hemoglobin 9.4 g/dL (14.0-18.0); Lymphocytes # (auto) 0.69 K/uL (1.2-3.4); Mean Corpuscular Hemoglobin 27.5 pg (25-34); Mean Corpuscular Hgb Conc 33.1 g/dL (32-36); Mean Platelet Volume 7.9 fL (7.4-10.4); Monocytes % (auto) 10.4 %; Neutrophils # (auto) 4.34 K/uL (1.4-6.5); Neutrophils % (auto) 75.5 %; Platelet Count 231 K/uL (130-400); RDW Coefficient of Variation 13.8 % (11.5-14.5); RDW Standard Deviation 42.4 fL (36.4-46.3); Red Blood Count 3.42 M/uL (4.7-6.1); White Blood Count 5.75 K/uL (4.8-10.8)
[2022-02-23] MEDS: PIPERACILLIN/TAZOBACTAM 3.375 GM in DEXTROSE 5% 100 ML IV SCH ×3 (08:28→23:29)
[2022-02-23] MEDS: INSULIN GLARGINE SOLOSTAR 100 UNITS/ML 3 ML PEN SQ SCH (08:31)
[2022-02-23] MEDS: INSULIN ASPART PER UNIT SC SCH ×4 (08:32→21:23)
[2022-02-23] MEDS: oxyCODONE HCL IR 5 MG TAB (IMMEDIATE RELEASE) PO PRN ×2 (08:41→23:34)
--- NOTE | 2022-02-23 08:45 | Surgery Progress Note ---
Date of Service February 23, 2022 Assessment & Plan (1) History of repair of hiatal hernia: Plan: The discomfort is likely referred pain from the diaphragmatic repair/irritation. This is quite common and expected. He has no acid reflux which is great. He is tolerating a liquid diet which is great. From my standpoint his postoperative course is typical for the procedure he had. He may be discharged when deemed okay by the primary service. Admission and Anticipated Discharge Date Admission Date: February 16, 2022 Subjective Patient seen. Doing okay but continues complain of left shoulder pain especially with movement and sometimes with eating. No nausea or vomiting. Physical Exam Physical Exam: Alert and oriented no acute distress Abdomen is soft with expected incisional tenderness. Wounds are healing nicely Results & Data ([facility]) Vital Signs (Past 12 Hours) Vital Signs Temp Pulse Resp BP Pulse Ox 02/23/22 08:07 36.6 C 83 17 134/75 90 PG Care Time/CCT Total # of Minutes Spent Total Time Spent with Patient: Total time spent is greater than 50% in coordination of care (as documented) at patient's floor/unit and/or counseling patient: Coding Level of Care Code None Diagnoses History of repair of hiatal hernia Z98.890; Z87.19
[2022-02-23 08:54] LABS: Albumin Globulin Ratio 1.3 (0.9-2); Albumin Level 3.3 gm/dl (3.4-5.0); BUN Creatinine Ratio 8.7 (10-20); Bilirubin,Total 0.4 mg/dl (0.2-1.0); Calcium 8.1 mg/dl (8.5-10.1); Creatinine Clr Calc Pharmacy 86.7 ml/min; Est GFR (African American) 92.4 ml/min; Est GFR (Non-African American) 79.7 ml/min; Globulin 2.6 gm/dl (2.5-4.0); Magnesium 2.1 mg/dl (1.7-2.4); Potassium 3.7 mmol/L (3.5-5.1); Total Protein 5.9 gm/dl (6.0-8.3)
[2022-02-23] MEDS: FAMOTIDINE 20 MG TAB PO SCH ×2 (12:10→20:08)
[2022-02-23] MEDS: SENNOSIDES 8.8 MG/5 ML UDC PO SCH ×2 (12:10→20:07)
--- NOTE | 2022-02-23 14:24 | Hospitalist Progress Note ---
Date of Service February 23, 2022 Assessment & Plan (1) Hiatal hernia: Plan: chest pain with epigastric pain ongoing for years Cardiac workup unrevealing with recent cardiac cath this is despite PPI twice daily + carafate qid and H2 carmen. RUQ u/s without signs of gallstones/ biliary disease. he has a known, large hiatal hernia and had egd-confirmed esophagitis in 2020 via EGD by [facility]- recommended upper GI series--this again showed a large intra-thoracic hiatal hernia and he had several episodes of reflux during the study. GI performed EGD which showed grade 3 paraesophageal hiatal hernia and recommended surgical eval Now s/p hiatal hernia repair on 02/19 Having a lot of expected postop pain with moderate pneumomediastinum and small right apical pneumothorax seen on CT chest performed postoperatively for severe chest pain-slowly improving but continues with pain mostly from subcut air in shoulders and diaphragmatic irritation Having BMs daily, tolerating full liquids diet With hiccups frequently -continue IV Dilaudid every 2 hours prn, oxycodone and tylenol prn -Surgery recommends full liquids diet ONLY for a couple of weeks post-op -no IVFs needed but continue holding lasix -follow CBC, CMP, Mag, Phos daily-will replace lytes as needed -continue bowel regimen with senna syrup, liquid docusate -continue PPI bid (2) Fever: Plan: had a fever on evening of 02/22 with very poor inspiration due to pain and diaphragmatic irritation-encouraged more aggressive ICS and ambulation -started ZOsyn and Vanco for HCAP/Gram negative and MRSA PNA coverage -checked BCxs-NGTD -fevers hopefully resolved (3) Anemia: Plan: Hgb slowly trending downward since surgery, now at 9.4 Is on ASA 81mg daily No obvious bleeding from anywhere else Is hemodynamically stable -follow CBC in AM and if continues to drop, will d/w Surgery or repeat CT abd/pel (4) Pneumomediastinum: Plan: Moderate, secondary to hiatal hernia repair No evidence of airway compromise from subcutaneous air having pain from subcut air which is slowly improving now Continue to monitor, check CXR in AM on 02/24 continue Pain control encouraged to sit upright, ambulate more and be more aggressive with ICS (5) Transaminitis: Plan: AST and ALT both elevated since surgery but continue to be trending downward. There was manipulation of the liver during surgery so seems expected follow LFTs (6) Chest pain: Plan: Presented with chest pain progressively worsening for years Had cardiac cath on 02/13 which ruled out ischemia as cause consulted Dr Leonardo Larson from [facility] who recommended an urgent limited echo to check LV wall motion. LV EF was preserved, and there were no wall motion abnormalities. EKG findings, known cardiac cath findings, and unchanged echo also support non- ischemic etiology for his symptoms. Further, there is no evidence for aortic dissection, PE, or clinical evidence of pericarditis. Chest pain secondary to large hiatal hernia which is now repaired as above Chest pain is now due to expected postoperative pain Continue pain medication as needed (7) Pneumothorax: Plan: Small right apical pneumothorax seen on CT chest postoperatively, 5 mm Continue supplemental O2 as needed-not hypoxic, none needed CXR 02/22 with possible residual small right PTX -check CXR 02/24 (8) Elevated troponin: Plan: Likely 2nd to cardiac cath performed on 02/13; and in particular performing FFR across the mid-LAD. ischemia unlikely. (9) Tricuspid regurgitation: Plan: Moderate on echo 2020. By report an echo via the [facility] more recently showed severe TR. He has been referred to the valve clinic at [facility]. Dr Larson advised once daily PO lasix in the event he has elevated RA pressures from the severe TR leading to abdominal symptoms from such but doubtful -- patient has had no change in abd symptoms since admission despite the lasix. -continue to hold Lasix until taking more adequate po (10) CAD (coronary artery disease): Plan: Known CAD. h/o acute TN 2000 s/p LAD stent. s/p cardiac cath 02/13/22 at [facility]. 50% mid-LAD lesion (in-stent stenosis). FFR 0.85 thus ischemia unlikely. Repeat echo here with normal LV wall motion. Continue statin. Continue beta carmen. Continue asa. Continue amlodipine. (11) Esophagitis: Plan: EGD/colonoscopy performed 05/2021 for anemia by Augustine Romero. EGD showed hiatal hernia with esophagitis. Upper GI pathology could be the cause of his symptoms. EGD this admission neg for esophagitis carafate dcd continue PPI and pepcid bid (12) Diabetes mellitus: Plan: Last a1c was fall 2020 -- 7.1%. Now - 7.9%. Cont lantus. Cont novolog SSI. (13) Hyperlipidemia: Plan: Cont statin. (14) History of CVA (cerebrovascular accident): Plan: Noted. Cont asa for secondary prevention. (15) BPH w urinary obs/LUTS: Plan: Cont alpha carmen (was taking flomax + prazosin - stopped latter - likely little benefit to dual alpha carmen therapy however I suspect he may be on prazosin for Psychiatric reasons). Cont finasteride. (16) Depression: Plan: likely with some schizoaffective d/o as well continue Abilify, duloxetine (17) Gout: Plan: continue allopurinol no acute issues (18) Sarcoidosis: Plan: No evidence of active disease on CT chest imaging. Plan: DVT proph- SCDs Dispo- continued stay for postoperative recovery, eventually [facility] Halfway only able to use T#3 for opioids so must be able to wean him down to pain control with T#3 prior to discharge Admission and Anticipated Discharge Date Admission Date: February 16, 2022 Subjective Pt still having pain in upper abdomen and chest, left shoulder but feels it is improved from yesterday. Moving bowels, ambulating at times with [facility] guards. Still with hiccups off and on. Neal full liquids diet. Only getting to 250mL on his incentive spirometer. Had a fever last evening and I started him on abx for PNA. No further fevers today. No cough but is barely taking deep breaths Review of Systems Review of Systems: All systems reviewed & are unremarkable except as noted in HPI & below Physical Exam Constitutional: WD/WN, vitals as above Eyes: + anicteric sclerae Neck: trachea midline, no thyromegaly Respiratory: + abnormal respiratory effort (poor insp effort), no cough and not tachypneic Auscultation: + diminished lung sounds (at bases); no wheezes Cardiovascular: RRR, no murmur, no edema Chest (Breasts): Chest: normal inspection of chest Gastrointestinal (Abdomen): normal bowel sounds, soft, nontender, no hepatosplenomegaly Inspection/Auscultation: normal bowel sounds; + abdomen abnormal to inspection (incisinal scar midline lower abdomen, multiple incisional wounds intact) and abdomen not distended Percussion/Palpation: + abdomen tender (In epigastric region without guarding or rebound) and abdomen soft Musculoskeletal: Extremities: extremities normal to inspection; no cyanosis and no clubbing Skin: no rashes, warm and dry Neurologic: moves all extremities and awake; no focal motor deficits Psychiatric: A+Ox3, euthymic affect Lymphatic: no lymphedema Results & Data Results & Data ([facility]) Vital Signs (Past 12 Hours) Vital Signs Temp Pulse Resp BP Pulse Ox 02/23/22 08:07 36.6 C 83 17 134/75 90 Laboratory Results 02/23/22 02/23/22 02/23/22 Range/Units 12:10 08:25 07:53 WBC (4.8-10.8) K/uL RBC (4.7-6.1) M/uL Hgb (14.0-18.0) g/dL Hct (42-52) % MCV (80-100) fL MCH (25-34) pg MCHC (32-36) g/dL RDW Std Deviation (36.4-46.3) fL RDW Coeff of Eliana (11.5-14.5) % Plt Count (130-400) K/uL MPV (7.4-10.4) fL Immature Gran % (Auto) % Neut % (Auto) % Lymph % (Auto) % Dunn % (Auto) % Eos % (Auto) % Baso % (Auto) % Neut # (Auto) (1.4-6.5) K/uL Lymph # (Auto) (1.2-3.4) K/uL Dunn # (Auto) (0.11-0.59) K/uL Eos # (Auto) (0-0.5) K/uL Baso # (Auto) (0-0.2) K/uL Immature Gran # (Auto) (0.00-0.02) K/uL Sodium 135 L (136-145) mmol/L Potassium 3.7 (3.5-5.1) mmol/L Chloride 102 (98-107) mmol/L Carbon Dioxide 28 (21-32) mmol/L Anion Gap 5 (3-11) BUN 9 (6-23) mg/dl Creatinine 1.03 (0.6-1.4) mg/dl Est Cr Clr Drug Dosing 86.7 ml/min Est GFR ( Amer) 92.4 ml/min Est GFR (Non-Af Amer) 79.7 ml/min BUN/Creatinine Ratio 8.7 L (10-20) Glucose 101 H (70-99(Fasting)) mg/dl POC Glucose 108 H 108 H (70-99) mg/dl Calcium 8.1 L (8.5-10.1) mg/dl Magnesium 2.1 (1.7-2.4) mg/dl Total Bilirubin 0.4 (0.2-1.0) mg/dl AST 41 H (13-39) U/L ALT 63 H (7-52) U/L Alkaline Phosphatase 109 H (34-104) U/L Total Protein 5.9 L (6.0-8.3) gm/dl Albumin 3.3 L (3.4-5.0) gm/dl Globulin 2.6 (2.5-4.0) gm/dl Albumin/Globulin Ratio 1.3 (0.9-2) 02/23/22 02/22/22 02/22/22 Range/Units 07:53 20:43 17:09 WBC 5.75 (4.8-10.8) K/uL RBC 3.42 L (4.7-6.1) M/uL Hgb 9.4 L (14.0-18.0) g/dL Hct 28.4 L (42-52) % MCV 83.0 (80-100) fL MCH 27.5 (25-34) pg MCHC 33.1 (32-36) g/dL RDW Std Deviation 42.4 (36.4-46.3) fL RDW Coeff of Eliana 13.8 (11.5-14.5) % Plt Count 231 (130-400) K/uL MPV 7.9 (7.4-10.4) fL Immature Gran % (Auto) 0.0 % Neut % (Auto) 75.5 % Lymph % (Auto) 12.0 % Dunn % (Auto) 10.4 % Eos % (Auto) 1.9 % Baso % (Auto) 0.2 % Neut # (Auto) 4.34 (1.4-6.5) K/uL Lymph # (Auto) 0.69 L (1.2-3.4) K/uL Dunn # (Auto) 0.60 H (0.11-0.59) K/uL Eos # (Auto) 0.11 (0-0.5) K/uL Baso # (Auto) 0.01 (0-0.2) K/uL Immature Gran # (Auto) 0.00 (0.00-0.02) K/uL Sodium (136-145) mmol/L Potassium (3.5-5.1) mmol/L Chloride (98-107) mmol/L Carbon Dioxide (21-32) mmol/L Anion Gap (3-11) BUN (6-23) mg/dl Creatinine (0.6-1.4) mg/dl Est Cr Clr Drug Dosing ml/min Est GFR ( Amer) ml/min Est GFR (Non-Af Amer) ml/min BUN/Creatinine Ratio (10-20) Glucose (70-99(Fasting)) mg/dl POC Glucose 156 H 118 H (70-99) mg/dl Calcium (8.5-10.1) mg/dl Magnesium (1.7-2.4) mg/dl Total Bilirubin (0.2-1.0) mg/dl AST (13-39) U/L ALT (7-52) U/L Alkaline Phosphatase (34-104) U/L Total Protein (6.0-8.3) gm/dl Albumin (3.4-5.0) gm/dl Globulin (2.5-4.0) gm/dl Albumin/Globulin Ratio (0.9-2) PG Care Time/CCT Total # of Minutes Spent Total Time Spent with Patient: Total time spent is greater than 50% in coordination of care (as documented) at patient's floor/unit and/or counseling patient: Coding Level of Care Code 17017 Subseq Hosp Care Lvl 3 Diagnoses Hiatal hernia K44.9 Chest pain R07.9 Pneumomediastinum J98.2 Transaminitis R74.01 Pneumothorax J93.9 Elevated troponin R77.8 Tricuspid regurgitation I07.1 Cardiac valve disease etiology: etiology unspecified CAD (coronary artery disease) I25.10 Esophagitis K20.90 Sarcoidosis D86.9 Diabetes mellitus E11.9 Hyperlipidemia E78.5 History of CVA (cerebrovascular accident) Z86.73 BPH w urinary obs/LUTS N40.1; N13.8 Depression F32.9 Gout M10.9 Fever R50.9 Anemia D64.9 (1) Tricuspid regurgitation Cardiac valve disease etiology: etiology unspecified Qualified Code(s): I07.1 - Rheumatic tricuspid insufficiency
[2022-02-23] MEDS: ROSUVASTATIN CALCIUM 20 MG TAB PO SCH (20:08)
[2022-02-23] MEDS: TAMSULOSIN HCL 0.4 MG CAP PO SCH (20:08)
[2022-02-24] MEDS: SIMETHICONE 80 MG CHEW PO PRN (01:18)
[2022-02-24] MEDS ORDERED: VANCOMYCIN TROUGH ONE (05:30)
[2022-02-24] MEDS: VANCOMYCIN HCL 1,000 MG in SODIUM CHLORIDE 0.9% 250 ML IV SCH (05:48)
[2022-02-24 06:34] LABS: Basophils # (auto) 0.01 K/uL (0-0.2); Basophils % (auto) 0.2 %; Eosinophils # (auto) 0.14 K/uL (0-0.5); Eosinophils % (auto) 2.9 %; Hematocrit (blood only) 28.5 % (42-52); Hemoglobin 9.6 g/dL (14.0-18.0); Immature Granulocytes # (auto) 0.01 K/uL (0.00-0.02); Immature Granulocytes % (auto) 0.2 %; Lymphocytes # (auto) 0.89 K/uL (1.2-3.4); Lymphocytes % (auto) 18.2 %; Mean Corpuscular Hemoglobin 28.2 pg (25-34); Mean Corpuscular Hgb Conc 33.7 g/dL (32-36); Mean Corpuscular Volume 83.6 fL (80-100); Mean Platelet Volume 7.8 fL (7.4-10.4); Monocytes # (auto) 0.57 K/uL (0.11-0.59); Monocytes % (auto) 11.7 %; Neutrophils # (auto) 3.27 K/uL (1.4-6.5); Neutrophils % (auto) 66.8 %; Platelet Count 255 K/uL (130-400); RDW Coefficient of Variation 13.8 % (11.5-14.5); RDW Standard Deviation 42.1 fL (36.4-46.3); Red Blood Count 3.41 M/uL (4.7-6.1); White Blood Count 4.89 K/uL (4.8-10.8)
[2022-02-24 06:55] LABS: Albumin Globulin Ratio 1.3 (0.9-2); Albumin Level 3.5 gm/dl (3.4-5.0); BUN Creatinine Ratio 6.3 (10-20); Bilirubin,Total 0.5 mg/dl (0.2-1.0); Calcium 8.5 mg/dl (8.5-10.1); Creatinine Clr Calc Pharmacy 80.4 ml/min; Est GFR (African American) 84.4 ml/min; Est GFR (Non-African American) 72.8 ml/min; Globulin 2.8 gm/dl (2.5-4.0); Potassium 3.8 mmol/L (3.5-5.1); Total Protein 6.3 gm/dl (6.0-8.3)
--- NOTE | 2022-02-24 08:02 | XRay Report ---
XR chest 1V portable HISTORY: f/u pneumomediastinum, hiatal hernia surgery, fever COMPARISON: Chest 02/22/2022. FINDINGS: Interval improvement/resolution of the pneumomediastinum. No definite pneumothorax. There a re low lung volumes. Small bilateral pleural effusions and bibasilar densities persist. The heart rem ains enlarged. Spinal stimulator leads are noted. There is contrast within the colon. Trace right sup raclavicular subcutaneous emphysema has also improved. IMPRESSION: 1. Interval improvement/resolution of the pneumomediastinum and right pneumothorax. 2. Small bilateral pleural fusions and bibasilar densities persist. ACT 112: Negative or not required by law. Electronically signed by: Ortega Munoz M.D. 02/24/2022 8:01 AM
[2022-02-24] MEDS: PIPERACILLIN/TAZOBACTAM 3.375 GM in DEXTROSE 5% 100 ML IV SCH ×2 (08:10→15:54)
--- NOTE | 2022-02-24 08:48 | Pharmacy Report ---
Pharmacy Vanc AUC Short Note - Date of Service February 24, 2022 - Assessment & Plan Assessment 56 year old M receiving vancomycin and Zosyn for treatment of possible hospital- acquired pneumonia. Pertinent microbiologic data includes: 1 of 2 blood cultures (02/22) growing gram-positive cocci clusters. Antibiotics initiated on 02/22 due to new fevers and possible consolidation found on chest x-ray. Repeat chest x- ray on 02/24 shows small bilateral pleural effusions and persistent bibasilar densities. Patient now afebrile over past 36 hours, renal function stable. Day # 3 of antimicrobial therapy. Plan Vancomycin * AUC/TIFFANY is the preferred PK/PD target for vancomycin * AUC guided dosing is effective and associated with decreased risk of nephrotoxicity compared to traditional trough targets * Trough level of 9.5 mcg/mL is predicted to achieve target AUC/TIFFANY of 400-600 mg/L.hr, however will change to 1250 mg IV every 12 hours to more reliably achieve this target with only 12% risk of nephrotoxicity * Will order follow-up levels if patient to remain on vancomycin Zosyn * 3.375 g IV q8h remains appropriate Pharmacy will continue to follow and will adjust dose/frequency as necessary. Thank you.
[2022-02-24] MEDS: allopurinoL 100 MG TAB PO SCH (08:54)
[2022-02-24] MEDS: amLODIPine BESYLATE 5 MG TAB PO SCH (08:54)
[2022-02-24] MEDS: ARIPIprazole 1 MG/ML ORAL SOLN 150 ML BTL PO SCH (08:55)
[2022-02-24] MEDS: FAMOTIDINE 20 MG TAB PO SCH ×2 (08:56→19:50)
[2022-02-24] MEDS: DULoxetine HCL 60 MG CAP PO SCH ×2 (08:56→19:51)
[2022-02-24] MEDS: FINASTERIDE 5 MG TAB PO SCH (08:57)
[2022-02-24] MEDS: METOPROLOL TARTRATE 25 MG TAB PO SCH ×2 (08:57→19:49)
[2022-02-24] MEDS: PANTOprazole 40 MG TAB PO SCH ×2 (08:58→19:49)
[2022-02-24] MEDS: DOCUSATE SODIUM SYRUP 100 MG/10 ML UDC PO SCH ×2 (08:59→19:47)
[2022-02-24] MEDS: SENNOSIDES 8.8 MG/5 ML UDC PO SCH ×2 (08:59→19:48)
[2022-02-24] MEDS: FLUTICASONE FUROATE 200MCG 14 PUFFS/INHALER INH SCH (08:59)
[2022-02-24] MEDS: INSULIN GLARGINE SOLOSTAR 100 UNITS/ML 3 ML PEN SQ SCH (09:02)
[2022-02-24] MEDS: ACETAMINOPHEN 325 MG TAB PO PRN (09:07)
[2022-02-24] MEDS: INSULIN ASPART PER UNIT SC SCH ×4 (09:07→20:40)
--- NOTE | 2022-02-24 09:21 | Surgery Progress Note ---
Date of Service February 24, 2022 Assessment & Plan (1) History of repair of hiatal hernia: Plan: POD #5 laparoscopic hiatal hernia repair Making progress. feels better today. pain controlled. no n/v. + BM/flatus Tolerating full liquid diet, of which he should stay on until f/u in ~2 weeks Last narcotic use was around midnight, currently using Tylenol Okay for discharge from our standpoint, dispo instructions reviewed, f/u in [address] De La Fuente Admission and Anticipated Discharge Date Admission Date: February 16, 2022 Subjective Patient says he is feeling better. Denies nausea. Tolerating full liquids. Pain controlled. He is passing flatus and had a BM. Physical Exam Physical Exam: awake/alert, no acute distress Gastrointestinal (Abdomen): Inspection/Auscultation: + abdominal surgical incision (c/d/i with dermabond) Percussion/Palpation: abdomen soft; abdomen nontender Results & Data ([facility]) Vital Signs (Past 12 Hours) Vital Signs Temp Pulse Resp BP Pulse Ox 02/24/22 08:45 37.0 C 72 16 129/80 95 02/23/22 22:40 37.4 C 83 18 131/84 93 PG Care Time/CCT Total # of Minutes Spent Total Time Spent with Patient: Total time spent is greater than 50% in coordination of care (as documented) at patient's floor/unit and/or counseling patient: Coding Level of Care Code None Diagnoses History of repair of hiatal hernia Z98.890; Z87.19
[2022-02-24] MEDS: ASPIRIN 81 MG ECTAB PO SCH (10:57)
--- NOTE | 2022-02-24 13:16 | Hospitalist Progress Note ---
Date of Service February 24, 2022 Assessment & Plan (1) Hiatal hernia: Plan: Postoperative day #5 after repair. He will remain on full liquids for 2 weeks from the surgery date. Pain medications switched to Tylenol 3 which they will use at the present. Upper GI series showed a large intra-thoracic hiatal hernia with several episodes of reflux during the study. GI performed EGD which showed grade 3 paraesophageal hiatal hernia and recommended surgical eval Hiatal hernia repair on 02/19. Mild postoperative discomfort now. Narcotics and switch to Tylenol 3 which will be used at the [place] [facility]. Continue PPI bid (2) Fever: Plan: Resolved . Was on zosyn and Vanco for HCAP/Gram negative and MRSA PNA coverage (3) Anemia: Plan: Is on ASA 81mg daily. No obvious bleeding from GI tract. Hemodynamically stable. Serial labs (4) Pneumomediastinum: Plan: secondary to hiatal hernia repair No evidence of airway compromise from subcutaneous air. No intervention needed. Serial chest x-rays until resolved. (5) Transaminitis: Plan: AST and ALT both mildly elevated since surgery but continue to be trending downward. Expect this to resolve. Serial LFTs (6) Chest pain: Plan: No evidence of acute coronary syndrome. Pain is probably due to underlying hiatal hernia which has now resolved. Had cardiac cath on 02/13 which ruled out ischemia as cause. Cardiology consultation appreciated. No regional wall motion abnormality seen on cardiac echo. (7) Pneumothorax: Plan: Small right apical pneumothorax seen on CT chest postoperatively. No intervention needed. This should resolve with time. (8) Elevated troponin: Plan: o evidence of acute coronary syndrome. Will follow l ischemia unlikely. (9) Tricuspid regurgitation: Plan: Seen on cardiac echo. No intervention needed at this time. Lasix as needed (10) CAD (coronary artery disease): Plan: Known CAD. h/o acute [place] 2000 s/p LAD stent. s/p cardiac cath 02/13/22 at [facility].50% mid-LAD lesion (in-stent stenosis). FFR 0.85 thus ischemia unlikely. Repeat echo here with normal LV wall continue current medical management. (11) Esophagitis: Plan: EGD/colonoscopy performed 05/2021 for anemia by Augustine Romero. EGD showed hiatal hernia with esophagitis. Continue PPI therapy and H2 carmen therapy (12) Diabetes mellitus: Plan: Type II. ADA diet. Sliding scale insulin coverage as needed. Continue current medical management. Stable. (13) Hyperlipidemia: Plan: Cont statin. (14) History of CVA (cerebrovascular accident): Plan: Noted. Cont asa for secondary prevention. (15) BPH w urinary obs/LUTS: Plan: Cont alpha carmen and finasteride. (16) Depression: Plan: likely with some schizoaffective d/o as well. Continue Abilify, duloxetine (17) Gout: Plan: continue allopurinol no acute issues (18) Sarcoidosis: Plan: No evidence of active disease on CT chest imaging. Plan: DVT proph- SCDs Dispo: Anticipate discharge back to the [place] [facility] tomorrow, February 25 Admission and Anticipated Discharge Date Admission Date: February 16, 2022 Subjective Alert and oriented. Postoperative day 5 after hiatal hernia repair. We will change pain medications to Tylenol 3 as needed only since this is what they will use at the [place] [facility]. Anticipate discharge back to [facility] tomorrow, February 25 he will remain on full liquids only for 2 weeks from the surgery date. Review of Systems Review of Systems: Constitutional-no fever or chills ENT-no blurred vision, no double vision, no epistaxis, no sore throat Respiratory-no cough, no wheezing, no shortness of breath Cardiac-no palpitations, no chest pain, no syncope GI-no nausea, vomiting, diarrhea, melena, hematochezia -no urinary retention, no urinary incontinence, no dysuria, no hematuria Musculoskeletal-no joint pain, no muscle tenderness Skin-no bruising, no rashes, no pruritus Neuro-no isolated weakness, no paresthesia, no weakness Psych-no depression, no anxiety Physical Exam Physical Exam: General-alert and oriented x3, no fevers, no chills HEENT-head atraumatic and normocephalic, TMs intact bilaterally, pupils equal and reactive to light, extraocular muscles intact Neck-no lymphadenopathy or thyromegaly, trachea midline Chest-clear to auscultation percussion. No rales wheezing or rhonchi Cardiac-regular rate and rhythm, normal S1 and S2, no murmurs Abdomen-normal bowel sounds, no hepatosplenomegaly. Mild postoperative wound tenderness as expected Extremities-no cyanosis, clubbing, or edema Neuro-cranial nerves II through XII intact, motor and sensory function within normal limits, strength symmetrical , no focal deficits Psych-normal affect, normal mood Results & Data Results & Data ([facility]) Vital Signs (Past 12 Hours) Vital Signs Temp Pulse Resp BP Pulse Ox 02/24/22 08:45 37.0 C 72 16 129/80 95 Laboratory Results 02/24/22 05:24 02/24/22 05:24 PG Care Time/CCT Total # of Minutes Spent Total Time Spent with Patient: Total time spent is greater than 50% in coordination of care (as documented) at patient's floor/unit and/or counseling patient: Coding Level of Care Code 09723 Subseq Hosp Care Lvl 3 Diagnoses Hiatal hernia K44.9 Fever R50.9 Anemia D64.9 Pneumomediastinum J98.2 Transaminitis R74.01 Chest pain R07.9 Pneumothorax J93.9 Elevated troponin R77.8 Tricuspid regurgitation I07.1 Cardiac valve disease etiology: etiology unspecified CAD (coronary artery disease) I25.10 Esophagitis K20.90 Diabetes mellitus E11.9 Hyperlipidemia E78.5 History of CVA (cerebrovascular accident) Z86.73 BPH w urinary obs/LUTS N40.1; N13.8 Depression F32.9 Gout M10.9 Sarcoidosis D86.9 (1) Tricuspid regurgitation Cardiac valve disease etiology: etiology unspecified Qualified Code(s): I07.1 - Rheumatic tricuspid insufficiency
[2022-02-24] MEDS: VANCOMYCIN HCL 1,250 MG in SODIUM CHLORIDE 0.9% 250 ML IV SCH (15:52)
[2022-02-24] MEDS: TAMSULOSIN HCL 0.4 MG CAP PO SCH (19:48)
[2022-02-24] MEDS: ROSUVASTATIN CALCIUM 20 MG TAB PO SCH (19:50)
[2022-02-24] MEDS: ACETAMINOPHEN W/CODEINE #3 1 TAB PO PRN (19:59)
[2022-02-25] MEDS ORDERED: MELATONIN 3 MG TAB PO PRN (00:08)
[2022-02-25] MEDS: PIPERACILLIN/TAZOBACTAM 3.375 GM in DEXTROSE 5% 100 ML IV SCH ×2 (00:25→08:13)
[2022-02-25] MEDS: ACETAMINOPHEN W/CODEINE #3 1 TAB PO PRN (04:11)
[2022-02-25] MEDS: VANCOMYCIN HCL 1,250 MG in SODIUM CHLORIDE 0.9% 250 ML IV SCH (04:12)
[2022-02-25 06:37] LABS: Creatinine Clr Calc Pharmacy 83.4 ml/min; Est GFR (African American) 88.2 ml/min; Est GFR (Non-African American) 76.1 ml/min
--- NOTE | 2022-02-25 07:38 | Surgery Progress Note ---
Date of Service February 25, 2022 Assessment & Plan (1) History of repair of hiatal hernia: Plan: POD #6 laparoscopic hiatal hernia repair Feeling well. Pain controlled. No n/v. + bowel function Tolerating full liquid diet, of which he should stay on until f/u in ~2 weeks Using Tylenol #3 which is available in the correction should he need it Okay for discharge from our standpoint, dispo instructions reviewed, f/u in [address] De La Fuente Admission and Anticipated Discharge Date Admission Date: February 16, 2022 Subjective Patient still feeling well. Tolerating full liquids. No n/v. Passing flatus and BM's. Pain controlled. Physical Exam Physical Exam: awake/alert, no distress Gastrointestinal (Abdomen): Inspection/Auscultation: + abdomen distended (improved) and + abdominal surgical incision (c/d/i) Percussion/Palpation: abdomen soft; abdomen nontender Results & Data ([facility]) Vital Signs (Past 12 Hours) Vital Signs Temp Pulse Resp BP Pulse Ox 02/24/22 21:46 37.2 C 69 18 114/72 98 PG Care Time/CCT Total # of Minutes Spent Total Time Spent with Patient: Total time spent is greater than 50% in coordination of care (as documented) at patient's floor/unit and/or counseling patient: Coding Level of Care Code None Diagnoses History of repair of hiatal hernia Z98.890; Z87.19
[2022-02-25] MEDS: FLUTICASONE FUROATE 200MCG 14 PUFFS/INHALER INH SCH (08:42)
[2022-02-25] MEDS: DULoxetine HCL 60 MG CAP PO SCH (08:43)
[2022-02-25] MEDS: FAMOTIDINE 20 MG TAB PO SCH (08:44)
[2022-02-25] MEDS: METOPROLOL TARTRATE 25 MG TAB PO SCH (08:45)
[2022-02-25] MEDS: PANTOprazole 40 MG TAB PO SCH (08:45)
[2022-02-25] MEDS: amLODIPine BESYLATE 5 MG TAB PO SCH (08:46)
[2022-02-25] MEDS: allopurinoL 100 MG TAB PO SCH (08:46)
[2022-02-25] MEDS: ARIPIprazole 1 MG/ML ORAL SOLN 150 ML BTL PO SCH (08:47)
[2022-02-25] MEDS: DOCUSATE SODIUM SYRUP 100 MG/10 ML UDC PO SCH (08:47)
[2022-02-25] MEDS: ASPIRIN 81 MG ECTAB PO SCH (08:47)
[2022-02-25] MEDS: FINASTERIDE 5 MG TAB PO SCH (08:48)
[2022-02-25] MEDS: SENNOSIDES 8.8 MG/5 ML UDC PO SCH (08:48)
[2022-02-25] MEDS: INSULIN GLARGINE SOLOSTAR 100 UNITS/ML 3 ML PEN SQ SCH (08:49)
[2022-02-25] MEDS: INSULIN ASPART PER UNIT SC SCH ×2 (08:54→12:59)
--- NOTE | 2022-02-25 12:33 | Discharge Summary ---
Date of Service February 25, 2022 Admission HPI Per Admitting Provider 56yo AA male, prisoner of [facility], with known CAD s/p acute HI with stenting in 2000 (Rukhsana DUARTE), T2DM, asthma, large hiatal hernia with prior esophagitis, h/o sarcoid, and tricuspid regurgitation. Patient presents with the acute onset of substernal chest pain radiating to the left upper chest, left neck, left arm, and into the back. Symptoms began while watching TV in the [facility] early this AM (2am, 3am). EKG was obtained by the [facility] staff, and he was brought to [facility] for evaluation. Patient has been having episodes of chest pain lasting 30-60 minutes for several weeks, sometimes on daily basis. Episodes occur at rest and with exertion. Some of the symptoms are similar to when he had his acute HI in 2000. He has been given tums during episodes without relief. He has had nitroglycerin prn during episodes without complete relief. Symptoms often simply resolve on their own. At some point the intermediate performed an echo demonstrating severe TR and has been referred to the valve clinic at [facility] [place]; he has yet to have this consultation. In preparation for such he underwent an elective heart cath yesterday by Dr Tomás Alicia and Dr Matthieu De of [facility]. He states he had chest pain during the cath itself, but by the time he was discharged back to intermediate those symptoms had resolved. Heart cath findings - Diagnostic cath by Dr Alicia - Impression: 1. Nonobstructive CAD angiographically, however chest discomfort and peak T waves occurred while performing angiography of the left system, with haziness noted within the mid LAD stent. 2. Mildly elevated pulmonary capillary wedge pressure. 3. No aortic stenosis. 4. Top normal pulmonary artery pressure. 5. Normal cardiac output. Additional cath by Dr De - Summary: 1. Nonobstructive moderate mid LAD in-stent restenosis (FFR 0.85). 2. Mild concentric calcified in-stent restenosis on IVUS. 40% ostial circumflex on IVUS. Principal Diagnosis Symptomatic hiatal hernia, noncardiac chest pain, postoperative acute blood loss anemia, postoperative small right pneumothorax Discharge Exam General-alert and oriented x3, no fevers, no chills HEENT-head atraumatic and normocephalic, TMs intact bilaterally, pupils equal and reactive to light, extraocular muscles intact Neck-no lymphadenopathy or thyromegaly, trachea midline Chest-clear to auscultation percussion. No rales wheezing or rhonchi Cardiac-regular rate and rhythm, normal S1 and S2, no murmurs Abdomen-normal bowel sounds, , no hepatosplenomegaly. Mild postoperative tenderness at laparoscopic sites but healing well Extremities-no cyanosis, clubbing, or edema Neuro-cranial nerves II through XII intact, motor and sensory function within normal limits, strength symmetrical , no focal deficits Psych-normal affect, normal mood Discharge Data Allergies Allergy/AdvReac Type Severity Reaction Status Date / Time lisinopril Allergy Severe ANAPHYLAXIS Verified 02/19/22 15:09 ibuprofen Allergy Intermediate HIVES Verified 02/19/22 15:09 morphine Allergy Intermediate HIVES Verified 02/19/22 15:09 capsaicin Allergy Unknown Unknown Verified 02/19/22 15:09 phenytoin Allergy Unknown Unknown Verified 02/19/22 15:09 Consultations 02/14/22 08:01 ED Decision to Admit Stat 02/14/22 10:46 Consult Cardiology Routine 02/16/22 09:00 Consult Gastroenterology Routine 02/17/22 11:16 Consult General Surgery Routine Procedures Performed Operation Date: 02/16/22 17:15 <No data on this case meets the specified criteria> Operation Date: 02/17/22 16:45 Actual Procedures p Esophagogastroduodenoscopy - Hallie Scott DO Operation Date: 02/19/22 12:55 Actual Procedures p Laparoscopic Repair of Hiatal Hernia (Katie)(Not Applicable) - Luke De La Fuente DO Ordered Studies 02/14/22 05:17 CT angio chest dissec wo/w con Urgent 02/15/22 15:52 US gallbladder Urgent 02/16/22 09:10 FL GI series Routine 02/19/22 23:20 CT angio chest PE protocol Urgent Hospital Course (1) Hiatal hernia: Postoperative day #6 after repair. He will remain on full liquids for 2 w eeks from the surgery date. Pain medications have been switched to Tylenol 3 which they will use at the present. Upper GI series showed a large intra- thoracic hiatal hernia with several episodes of reflux during the study. GI performed EGD which showed grade 3 paraesophageal hiatal hernia and recommended surgical eval Hiatal hernia repair on 02/19. Mild postoperative discomfort now. Narcotics have been switched to Tylenol 3 which will be used at the intermediate. Continue PPI bid (2) Fever: Resolved . Was on zosyn and Vanco for HCAP/Gram negative and MRSA PNA coverage (3) Anemia: Is on ASA 81mg daily. No obvious bleeding from GI tract. Hemodynamically stable. Serial labs (4) Pneumomediastinum: secondary to hiatal hernia repair No evidence of airway compromise from subcutaneous air. No intervention needed. Serial chest x-rays until resolved. (5) Transaminitis: AST and ALT both mildly elevated since surgery but continue to be trending downward. Expect this to resolve. Serial LFTs (6) Chest pain: No evidence of acute coronary syndrome. Pain is probably due to underlying hiatal hernia which has now resolved. Had cardiac cath on 02/13 which ruled out ischemia as cause. Cardiology consultation appreciated. No regional wall motion abnormality seen on cardiac echo. (7) Pneumothorax: Small right apical pneumothorax seen on CT chest postoperatively. No intervention needed. This should resolve with time. (8) Elevated troponin: No evidence of acute coronary syndrome. (9) Tricuspid regurgitation: Seen on cardiac echo. No intervention needed at this time. Lasix as needed (10) CAD (coronary artery disease): Known CAD. h/o acute HI 2000 s/p LAD stent. s/p cardiac cath 02/13/22 at [facility].50% mid-LAD lesion (in-stent stenosis). FFR 0.85 thus ischemia unlikely. Repeat echo here with normal LV wall motion. Continue current medical management. (11) Esophagitis: EGD/colonoscopy performed 05/2021 for anemia by Augustine Romero. EGD showed hiatal hernia with esophagitis. Continue PPI therapy and H2 carmen therapy (12) Diabetes mellitus: Type II. ADA diet. Sliding scale insulin coverage as needed. Continue current medical management. Stable. (13) Hyperlipidemia: Cont statin. (14) History of CVA (cerebrovascular accident): Noted. Cont asa for secondary prevention. (15) BPH w urinary obs/LUTS: Cont alpha carmen and finasteride. (16) Depression: likely with some schizoaffective d/o as well. Continue Abilify, duloxetine (17) Gout: continue allopurinol no acute issues (18) Sarcoidosis: No evidence of active disease on CT chest imaging. DVT proph- SCDs Dispo: discharge back to the intermediate today, February 25 Total Time Total Time Spent Total Time Spent (In Minutes): 35 minutes Discharge Plan Discharge Items [facility] Reason For Visit: CHEST PAIN Discharge Diagnosis: hiatal hernia repair Activity: Per Instructions section Lifting: No more than 10 pounds Bathing Comment: february shower. no tub soaks Exercise/Sports: Wait until after follow-up appointment Non-emergency contact: Primary Care Provider Call non-emergency contact if: you have any medication questions, your symptoms worsen, your pain is not controlled, your pain is worsening, your pain is concerning for you, you have a fever, your temperature is above 101.5, your wound has increased redness, your wound has increased drainage and your wound pain has increased Follow-up/Referrals: Luke De La Fuente DO [Surgeon] - (1 to 2 weeks from discharge) Shasta PEREIRA [Primary Care Provider] - Diet: Full liquid Diet Comment: liquid or pudding/oatmeal consistency only until seen for follow up. Addtl Attending Provider Instructions: Remain on full liquid diet for 8 more days. Pending Studies at Discharge: No Stand-Alone Forms: My [facility] Skilled Items Patient informed of condition?: Yes Discharge Level of Care: Other Communicable Disease: No Discharge Prognosis: Improving Lines: None Urinary Catheter: No Medications and DC Order Prescriptions: New acetaminophen-codeine 300-30 mg Tablet 1 tab PO Q4H PRNQty: 0 RF: 0 famotidine 20 mg Tablet 20 mg PO BID Qty: 60 RF: 0 pantoprazole [Protonix] 40 mg tablet,delayed release (DR/EC) 40 mg PO BID Qty: 60 RF: 0 Continued valsartan 80 mg Tablet 80 mg PO QAM RF: 0 calcium carbonate-vitamin D3 600 mg(1,500mg) -200 unit Tablet 2 tab PO BID RF: 0 allopurinol 100 mg Tablet 100 mg PO QAM RF: 0 aspirin 81 mg Tablet,Delayed Release (Dr/Ec) 81 mg PO QAM RF: 0 finasteride 5 mg Tablet 5 mg PO QAM RF: 0 rosuvastatin 20 mg Tablet 20 mg PO HS RF: 0 Alvesco 160 mcg/actuation Hfa Aerosol Inhaler 1 puff INHALATION BID RF: 0 docusate sodium 100 mg Capsule 200 mg PO BID RF: 0 polyethylene glycol 3350 [Miralax] 17 gram Powder In Packet 17 g PO DAILY Qty: 1 RF: 0 meclizine 12.5 mg Tablet 12.5 mg PO TID PRN (Reason: vertigo/dizziness) Qty: 30 RF: 0 Acid Gone Antacid 95-358 mg/15 mL Suspension 30 ml PO PCHS PRN (Reason: Heartburn) RF: 0 insulin glargine 100 unit/mL Solution 11 unit SUBCUT DAILY RF: 0 pantoprazole 40 mg Tablet,Delayed Release (Dr/Ec) 40 mg PO DAILY RF: 0 albuterol sulfate 90 mcg/actuation Hfa Aerosol Inhaler 2 puff INHALATION QID PRN (Reason: Shortness Of Breath) RF: 0 prazosin 2 mg Capsule 2 mg PO HS RF: 0 duloxetine 60 mg Capsule,Delayed Release(Dr/Ec) 60 mg PO BID RF: 0 aripiprazole [Abilify] 2 mg Tablet 2 mg PO DAILY RF: 0 tamsulosin 0.4 mg capsule 0.8 mg PO HS RF: 0 amlodipine 5 mg Tablet 5 mg PO DAILY RF: 0 metoprolol tartrate 25 mg Tablet 12.5 mg PO BID RF: 0 Novolin R Regular U-100 Insuln 100 unit/mL Solution 1 sliding scale dose SUBCUT USEASDIRECTD RF: 0 Discharge Orders: Discharge Order (Routine); Ordered 02/25/22 Ordered By: Vaibhav De Leon/Other Patient Handouts: Managing Type 2 Diabetes Admission Data Admit Date/Time: 02/16/22 14:35 Attending Provider: Vaibhav Koch Admit Provider: Willy Mace [facility] Other Providers: Willy Mace ; Leonardo Larson Brandon M. ; Luke De La Fuente Coding Level of Care Code D/C DAY MANAGEMENT >30 MINS Diagnoses Hiatal hernia K44.9 Fever R50.9 Anemia D64.9 Pneumomediastinum J98.2 Transaminitis R74.01 Chest pain R07.9 Pneumothorax J93.9 Elevated troponin R77.8 Tricuspid regurgitation I07.1 Cardiac valve disease etiology: etiology unspecified CAD (coronary artery disease) I25.10 Esophagitis K20.90 Diabetes mellitus E11.9 Hyperlipidemia E78.5 History of CVA (cerebrovascular accident) Z86.73 BPH w urinary obs/LUTS N40.1; N13.8 Depression F32.9 Gout M10.9 Sarcoidosis D86.9
== END 2022-02-25 16:41 | DRG 326 ==
LOC: 2S 04:43 → ED 04:43 → 2S 10:21 → SUATTDRO 02-16 14:35 → 3W 02-17 17:50

== ENCOUNTER 2022-03-26 21:44 | Observation (INO) ==
[2022-03-26] MEDS ORDERED: fentaNYL citrate 100 MCG/2 ML VIAL IV STA (21:51)
--- NOTE | 2022-03-26 21:57 | Emergency Department Note ---
Impression & Plan Falls, Chest pain, Syncope and collapse ED Provider Note Provider: Andrae Lombardi MD DATE OF SERVICE: 03/26/2022 CHIEF COMPLAINT: Chest pain, fall HISTORY OF PRESENT ILLNESS: Patient is a 56-year-old gentleman history of hiatal hernia repair, GERD, cardiac stenting with tricuspid valve regurgitation undergoing evaluation with likely replacement of the neck several weeks at [facility] presenting here today [facility]. Patient evidently states has had 3-4 episodes of falling today. Patient states he got dizzy and fell to the ground. The last time not only did he strike his head but he had loss of consciousness for some period. Patient states that he is having some pain in his head, chest, abdomen, and upper back. States of tingling in his hands and feet. Patient denies injury to his nose or teeth. Patient received several doses of nitroglycerin in addition to full dose aspirin prior to arrival with minimal improvement of his chest discomfort but reporting a bit of worsening of a headache with this. Patient reports pain more on the right side of his head. Patient states he has been taking aspirin. No other blood thinners reported. Patient denies nausea. REVIEW OF SYSTEMS: A total of 10 review of systems was obtained and negative except as stated above in the HPI. PAST MEDICAL HISTORY: As noted above MEDICATIONS: Reviewed medication list from the facility SOCIAL HISTORY: Currently at [facility] as prisoner PHYSICAL EXAM: GENERAL: alert and oriented in no acute distress on stretcher, guards at backside. Cervical collar in place. Head: normocephalic and atraumatic EYES: No injection, discharge or icterus. PERRL, EOMI. NECK: Trachea midline. Supple some mild diffuse tenderness but not all bony prominences. ENT: Mucous membranes pink and moist. Pharynx without erythema or exudate. LUNGS: Airway patent. No retractions. Breath sounds clear with good air entry bilaterally. HEART: Regular rate and rhythm. Some mild anterior chest wall tenderness ABDOMEN: Soft and non-tender, without guarding or rebound. BACK: Mild diffuse thoracic back tenderness. SKIN: Acyanotic, warm, dry, without rashes EXTREMITIES: Without swelling, tenderness or deformity NEUROLOGICAL: No aphasia. No facial droop or slurred speech. Normal strength and tone in the extremities. Sensation to gross touch normal although some subjective tingling diffusely. EK bpm normal sinus rhythm with an incomplete right bundle branch block. No acute ST segment elevation is noted with nonspecific T wave changes in comparison to previous from February 21 of this year similar. CONTINUOUS CARDIAC MONITORING: was ordered and showed a heart rate of 60s-80s bpm in normal sinus rhythm GCS 15. Patient's laboratory studies and imaging reviewed. Differential includes Fracture, dislocation, contusion, intra-abdominal, pneumothorax, intrathoracic, intracranial, neurologic, compartment syndrome, rhabdomyolysis, cardiac as well as other pathologies. IMPRESSION/MEDICAL DECISION MAKING: With several falls today head pain, neck pain, thoracic pain, chest, and abdominal pain. EKG without evidence of STEMI and appears similar to previous. Given nitro and full dose aspirin prior to arrival and then improvement here given a bit of fentanyl here. Taken off aspirin upon arrival. Maintained in cervical collar. Sent for CT scans. Basic blood work was obtained including troponin. Chest pain symptoms have been ongoing for about 3 hours by report. Patient has prior extensive cardiac work-up and hiatal hernia repair in the last several months. Cardiac catheterizations were performed here Mid to beginning of February without acute intervention. Blood work here today without significant leukocytosis and improving mild anemia. Troponin returns lower than previous in the normal range at this time. Repeat troponin pending no significant electrolyte abnormality. Negative COVID. Negative LFTs and lipase. Creatinine slightly off baseline but not that far given some IV fluid. Patient's pain is improving after some fentanyl here. He has a limited tingling in his hands and feet bilaterally however this does not seem distributional and imaging otherwise is reassuring. Feels gross touch. At this time given his multiple falls/syncopal episodes today with significant history feel further observation would be indicated DIAGNOSIS: Falls, syncope, chest pain DISPOSITION: Hospitalist will evaluate Preliminary Findings Only See Final Report For Complete Findings CT HEAD: No evidence of acute intracranial pathology. Incomplete fusion of the posterior ring of C1. Comparison made to prior head CT from July 21, 2021. Radiologist: Ivett Hernandez MD Study ready at 23:22 and initial results transmitted at 23:35 Preliminary Findings Only See Final Report For Complete Findings CT C SPINE: No evidence of acute cervical spine pathology. Moderate disc degeneration at C5- 6 and C6-7. There is a disc bulge at C5-6 on the ventral thecal sac and causing mild spinal canal stenosis, measuring 9.4 mm. Incomplete fusion of the posterior ring of C1. No comparisons. Radiologist: Ivett Hernandez MD Study ready at 23:32 and initial results transmitted at 23:41 Preliminary Findings Only See Final Report For Complete Findings CT T SPINE: No evidence of acute thoracic spine pathology. Possible remote superior endplate fracture deformities of the T1, T2 and T3 vertebral bodies. There is a cord stimulator in the dorsal epidural space with the distal array at the level of T7 and T8. Comparison made to prior CT scan of the chest from February 20, 2022. Radiologist: Ivett Hernandez MD Study ready at 23:35 and initial results transmitted at 23:51 Preliminary Findings Only See Final Report For Complete Findings CTA CHEST: Findings concerning for bronchitis, which may be of infectious or inflammatory etiologies. Moderate calcified atherosclerotic disease of the LAD. No evidence of pulmonary emboli, however study is limited secondary to contrast bolus timing. Large hiatal hernia. Comparison made to prior CT scan of the chest from February 20, 2022. Radiologist: Ivett Hernandez MD Study ready at 23:40 and initial results transmitted at 00:11 Preliminary Findings Only See Final Report For Complete Findings CT ABDOMEN & PELVIS With Contrast: No evidence of acute intra-abdominal pathology. There is a hypoenhancing lesion in the spleen which appears to be present in prior CT scan of the chest from February 20, 2022.. Moderate sized hiatal hernia with fluid and debris. The gallbladder is decompressed. No evidence of pancreatitis. The common bile duct is normal. No evidence of hydronephrosis or urinary calculi. The appendix is normal. Comparison made to prior CT angiogram of the chest from February 20, 2022. Radiologist: Ivett Hernandez MD Study ready at 23:52 and initial results transmitted at 00:17 Past Med/Surg History Medical History (Updated 03/27/22 @ 00:33 by Andrae Lombardi M.D.) Acute myocardial infarction 2020 s/p LAD stent Angina pectoris Asthma Atypical chest pain Bowel obstruction CAD (coronary artery disease) Depression DM type 2 (diabetes mellitus, type 2) Gout Head injury History of CVA (cerebrovascular accident) Hx SBO Hyperlipidemia Hypertension Iron deficiency anemia Peptic ulcer disease Pulmonary hypertension Sarcoidosis Skin cancer Syncope Tricuspid regurgitation Surgical History (Updated 02/21/22 @ 06:47 by Vaibhav Mixon MD, FACS) H/O exploratory laparotomy "05/31/2015 with lysis of adhesions, release of bowel obstruction, repair of incisional hernia" H/O ventral hernia repair History of back surgery History of repair of hiatal hernia (02/19/22) Laparoscopic Repair of Hiatal Hernia; partial gastric fundoplication; posterior gastropexy(Not Applicable) - Luke De La Fuente DO S/P cardiac cath S/P coronary artery stent placement (05/07/13) "2000" Family History Mother , age 67 Lung cancer Father , age 68 Lung cancer Brother Stroke age 55 Social History Smoking Status: Never smoker Hx Alcohol Use: No Hx Substance Use: No Preferred Language: Azeri Communication Ability: Effective Visual Impairment: No Limitations Javascript Ui Developer Required: No Beliefs That Will Affect Care: None Current Living Situation: Other Current Living Situation Comment: senior care - [facility] Feels Safe at Home: Yes Assistive Devices: Oxygen - at Night Allergies Allergies Allergy/AdvReac Type Severity Reaction Status Date / Time lisinopril Allergy Severe ANAPHYLAXIS Verified 03/11/22 11:40 ibuprofen Allergy Intermediate HIVES Verified 03/11/22 11:40 morphine Allergy Intermediate HIVES Verified 03/11/22 11:40 capsaicin Allergy Unknown Unknown Verified 03/11/22 11:40 phenytoin Allergy Unknown Unknown Verified 03/11/22 11:40 Home Meds Home Medications Medication Instructions Recorded Confirmed allopurinol 100 mg tablet 100 mg PO QAM 09/23/20 03/11/22 aspirin 81 mg tablet,delayed 81 mg PO QAM 09/23/20 03/11/22 release calcium carbonate 600 mg-vitamin 2 tab PO BID 09/23/20 03/11/22 D3 5 mcg (200 unit) tablet finasteride 5 mg tablet 5 mg PO QAM 09/23/20 03/11/22 rosuvastatin 20 mg tablet 20 mg PO HS 09/23/20 03/11/22 valsartan 80 mg tablet 80 mg PO QAM 09/23/20 03/11/22 ciclesonide 160 mcg/actuation 1 puff INHALATION BID 07/21/21 03/11/22 aerosol inhaler (Alvesco) docusate sodium 100 mg capsule 200 mg PO BID 07/21/21 03/11/22 albuterol sulfate 90 mcg/actuation 2 puff INHALATION QID PRN 02/06/22 03/11/22 aerosol inhaler aluminum hydrox-magnesium carb 95 30 ml PO PCHS PRN 02/06/22 03/11/22 mg-358 mg/15 mL oral suspension (Acid Gone Antacid) amlodipine 5 mg tablet 5 mg PO DAILY 02/06/22 03/11/22 aripiprazole 2 mg tablet (Abilify) 2 mg PO DAILY 02/06/22 03/11/22 duloxetine 60 mg capsule,delayed 60 mg PO BID 02/06/22 03/11/22 release insulin glargine 100 unit/mL 11 unit SUBCUT DAILY 02/06/22 03/11/22 subcutaneous solution insulin regular human 100 unit/mL 1 sliding scale dose SUBCUT 02/06/22 03/11/22 injection solution (Novolin R USEASDIRECTD Regular U-100 Insulin) metoprolol tartrate 25 mg tablet 12.5 mg PO BID 02/06/22 03/11/22 pantoprazole 40 mg tablet,delayed 40 mg PO DAILY 02/06/22 03/11/22 release prazosin 2 mg capsule 2 mg PO HS 02/06/22 03/11/22 tamsulosin 0.4 mg capsule 0.8 mg PO HS 02/06/22 03/11/22 Previous Rx's Medication Instructions Recorded meclizine 12.5 mg tablet 12.5 mg PO TID PRN #30 tab 07/24/21 polyethylene glycol 3350 17 gram 17 g PO DAILY #1 btl 07/24/21 oral powder packet (Miralax) famotidine 20 mg tablet 20 mg PO BID #60 tab 02/25/22 pantoprazole 40 mg tablet,delayed 40 mg PO BID #60 tab 02/25/22 release (Protonix) Results & Data (ED) Vital Signs Vital Signs - 24 hr 03/26/22 21:48 03/26/22 21:53 03/26/22 22:00 Temperature 37.1 C Temperature Source Oral Pulse Rate 85 83 75 Pulse Rate [Apical] Pulse Rate from SpO2 Sensor 84 76 Respiratory Rate 17 19 15 Respiratory Effort / Characteristics Non-Labored Spontaneous Respiratory Depth Normal Respiratory Pattern Regular Blood Pressure 128/74 121/84 Blood Pressure [Left Arm] Blood Pressure Mean 92 96 Blood Pressure Mean [Left Arm] Blood Pressure Position Lying Pulse Oximetry 97 94 96 Oxygen Delivery Method Room Air Room Air Room Air Sepsis Recent Fever Within 48 Hours No Sepsis New/Unexplained Change in Mental Status No Sepsis Action Taken by Nursing No Action Required 03/26/22 22:10 03/26/22 22:20 03/26/22 22:25 Temperature Temperature Source Pulse Rate 81 83 Pulse Rate [Apical] Pulse Rate from SpO2 Sensor 81 82 Respiratory Rate 15 17 Respiratory Effort / Characteristics Respiratory Depth Respiratory Pattern Blood Pressure Blood Pressure [Left Arm] Blood Pressure Mean Blood Pressure Mean [Left Arm] Blood Pressure Position Pulse Oximetry 96 97 Oxygen Delivery Method Room Air Room Air Room Air Sepsis Recent Fever Within 48 Hours Sepsis New/Unexplained Change in Mental Status Sepsis Action Taken by Nursing 03/26/22 22:30 03/26/22 22:40 03/26/22 23:38 Temperature Temperature Source Pulse Rate 81 78 Pulse Rate [Apical] 78 Pulse Rate from SpO2 Sensor 80 78 Respiratory Rate 17 19 18 Respiratory Effort / Characteristics Respiratory Depth Respiratory Pattern Blood Pressure 129/86 Blood Pressure [Left Arm] 120/88 Blood Pressure Mean 100 Blood Pressure Mean [Left Arm] 98 Blood Pressure Position Pulse Oximetry 99 99 98 Oxygen Delivery Method Room Air Room Air Room Air Sepsis Recent Fever Within 48 Hours Sepsis New/Unexplained Change in Mental Status Sepsis Action Taken by Nursing 03/27/22 00:32 Temperature Temperature Source Pulse Rate Pulse Rate [Apical] 63 Pulse Rate from SpO2 Sensor Respiratory Rate 20 Respiratory Effort / Characteristics Respiratory Depth Respiratory Pattern Blood Pressure Blood Pressure [Left Arm] 129/80 Blood Pressure Mean Blood Pressure Mean [Left Arm] 96 Blood Pressure Position Pulse Oximetry 98 Oxygen Delivery Method Room Air Sepsis Recent Fever Within 48 Hours Sepsis New/Unexplained Change in Mental Status Sepsis Action Taken by Nursing Laboratory Data Result diagrams: 03/26/22 21:58 03/26/22 21:58 Lab Results 03/26/22 03/26/22 03/26/22 Range/Units 21:58 21:58 21:58 WBC 5.55 (4.8-10.8) K/uL RBC 4.38 L (4.7-6.1) M/uL Hgb 12.3 L (14.0-18.0) g/dL POC Hgb (14.0-18.0) g/dl Hct 37.6 L (42-52) % POC Hct (42-52) % MCV 85.8 (80-100) fL MCH 28.1 (25-34) pg MCHC 32.7 (32-36) g/dL RDW Std Deviation 47.3 H (36.4-46.3) fL RDW Coeff of Eliana 15.0 H (11.5-14.5) % Plt Count 179 (130-400) K/uL MPV 8.0 (7.4-10.4) fL Immature Gran % (Auto) 0.4 % Neut % (Auto) 73.0 % Lymph % (Auto) 19.6 % [place] % (Auto) 5.9 % Eos % (Auto) 0.9 % Baso % (Auto) 0.2 % Neut # (Auto) 4.05 (1.4-6.5) K/uL Lymph # (Auto) 1.09 L (1.2-3.4) K/uL [place] # (Auto) 0.33 (0.11-0.59) K/uL Eos # (Auto) 0.05 (0-0.5) K/uL Baso # (Auto) 0.01 (0-0.2) K/uL Immature Gran # (Auto) 0.02 (0.00-0.02) K/uL PT 10.8 (9.0-12.0) Seconds INR 1.0 (0.9-1.1) APTT 20.8 L (21.0-31.0) Seconds PTT Ratio 0.8 POC Sodium (135-144) mmol/L Sodium 137 (136-145) mmol/L POC Potassium (3.3-5.0) mmol/L Potassium 4.5 (3.5-5.1) mmol/L POC Chloride (101-112) mmol/L Chloride 103 (98-107) mmol/L Carbon Dioxide 26 (21-32) mmol/L POC Total CO2 (24-31) mmol/L Anion Gap 8 (3-11) POC Anion Gap (16-25) mmol/L POC BUN (7-18) mg/dl BUN 22 (6-23) mg/dl Creatinine 1.49 H (0.6-1.4) mg/dl POC Creatinine (0.6-1.3) mg/dl Est Cr Clr Drug Dosing 59.6 ml/min Est GFR ( Amer) 59.1 ml/min Est GFR (Non-Af Amer) 51.0 ml/min BUN/Creatinine Ratio 14.8 (10-20) Glucose 114 H (70-99(Fasting)) mg/dl POC Glucose (other) (70-99) mg/dl Calcium 10.5 H (8.5-10.1) mg/dl POC Ioniz Calcium Nury (1.12-1.32) mmol/l Total Bilirubin 0.4 (0.2-1.0) mg/dl AST 14 (13-39) U/L ALT 13 (7-52) U/L Alkaline Phosphatase 74 (34-104) U/L Troponin I High Sens 14.0 D (0-20) pg/ml Total Protein 7.1 (6.0-8.3) gm/dl Albumin 4.3 (3.4-5.0) gm/dl Globulin 2.8 (2.5-4.0) gm/dl Albumin/Globulin Ratio 1.5 (0.9-2) Lipase 28 (11-82) U/L SARS-CoV-2, RNA, NAAT (NEGATIVE) 03/26/22 03/26/22 Range/Units 22:02 22:20 WBC (4.8-10.8) K/uL RBC (4.7-6.1) M/uL Hgb (14.0-18.0) g/dL POC Hgb 12.2 L (14.0-18.0) g/dl Hct (42-52) % POC Hct 36 L (42-52) % MCV (80-100) fL MCH (25-34) pg MCHC (32-36) g/dL RDW Std Deviation (36.4-46.3) fL RDW Coeff of Eliana (11.5-14.5) % Plt Count (130-400) K/uL MPV (7.4-10.4) fL Immature Gran % (Auto) % Neut % (Auto) % Lymph % (Auto) % [place] % (Auto) % Eos % (Auto) % Baso % (Auto) % Neut # (Auto) (1.4-6.5) K/uL Lymph # (Auto) (1.2-3.4) K/uL [place] # (Auto) (0.11-0.59) K/uL Eos # (Auto) (0-0.5) K/uL Baso # (Auto) (0-0.2) K/uL Immature Gran # (Auto) (0.00-0.02) K/uL PT (9.0-12.0) Seconds INR (0.9-1.1) APTT (21.0-31.0) Seconds PTT Ratio POC Sodium 139 (135-144) mmol/L Sodium (136-145) mmol/L POC Potassium 4.6 (3.3-5.0) mmol/L Potassium (3.5-5.1) mmol/L POC Chloride 102 (101-112) mmol/L Chloride (98-107) mmol/L Carbon Dioxide (21-32) mmol/L POC Total CO2 27 (24-31) mmol/L Anion Gap (3-11) POC Anion Gap 16.0 (16-25) mmol/L POC BUN 23 H (7-18) mg/dl BUN (6-23) mg/dl Creatinine (0.6-1.4) mg/dl POC Creatinine 1.5 H (0.6-1.3) mg/dl Est Cr Clr Drug Dosing ml/min Est GFR ( Amer) ml/min Est GFR (Non-Af Amer) ml/min BUN/Creatinine Ratio (10-20) Glucose (70-99(Fasting)) mg/dl POC Glucose (other) 119 H (70-99) mg/dl Calcium (8.5-10.1) mg/dl POC Ioniz Calcium Nury 1.33 H (1.12-1.32) mmol/l Total Bilirubin (0.2-1.0) mg/dl AST (13-39) U/L ALT (7-52) U/L Alkaline Phosphatase (34-104) U/L Troponin I High Sens (0-20) pg/ml Total Protein (6.0-8.3) gm/dl Albumin (3.4-5.0) gm/dl Globulin (2.5-4.0) gm/dl Albumin/Globulin Ratio (0.9-2) Lipase (11-82) U/L SARS-CoV-2, RNA, NAAT NEGATIVE (NEGATIVE) Administered Medications Discontinued Medications Fentanyl Citrate (Fentanyl Citrate 100 Mcg/2 Ml Vial) 50 mcg IV NOW STA Stop: 03/26/22 21:52 Last Admin: 03/26/22 22:41 Dose: 50 mcg Documented by: [id number] Sodium Chloride (Nss) 500 mls @ 999 mls/hr IV .Q31M ONE Stop: 03/26/22 23:34 Last Infusion: 03/27/22 00:05 Dose: 0 mls/hr Documented by: [id number] Admin: 03/26/22 23:30 Dose: 999 mls/hr Documented by: [id number] Ioversol (Optiray 320 125ml) 119 ml IV ONCE ONE Stop: 03/26/22 23:09 Last Admin: 03/26/22 23:09 Dose: 119 ml Documented by: [id number] Discharge Plan Visit Data Chief Complaint: Chest Pain ED Provider: Andrae Lombardi Discharge Problem: Falls, Chest pain, Syncope and collapse Patient Disposition: Being Evaluated by Hospitalist Forms Stand Alone Forms: [facility] Prescriptions Prescriptions: No Action valsartan 80 mg Tablet 80 mg PO QAM RF: 0 calcium carbonate-vitamin D3 600 mg(1,500mg) -200 unit Tablet 2 tab PO BID RF: 0 allopurinol 100 mg Tablet 100 mg PO QAM RF: 0 aspirin 81 mg Tablet,Delayed Release (Dr/Ec) 81 mg PO QAM RF: 0 finasteride 5 mg Tablet 5 mg PO QAM RF: 0 rosuvastatin 20 mg Tablet 20 mg PO HS RF: 0 Alvesco 160 mcg/actuation Hfa Aerosol Inhaler 1 puff INHALATION BID RF: 0 docusate sodium 100 mg Capsule 200 mg PO BID RF: 0 polyethylene glycol 3350 [Miralax] 17 gram Powder In Packet 17 g PO DAILY Qty: 1 RF: 0 meclizine 12.5 mg Tablet 12.5 mg PO TID PRN (Reason: vertigo/dizziness) Qty: 30 RF: 0 famotidine 20 mg Tablet 20 mg PO BID Qty: 60 RF: 0 pantoprazole [Protonix] 40 mg tablet,delayed release (DR/EC) 40 mg PO BID Qty: 60 RF: 0 Acid Gone Antacid 95-358 mg/15 mL Suspension 30 ml PO PCHS PRN (Reason: Heartburn) RF: 0 insulin glargine 100 unit/mL Solution 11 unit SUBCUT DAILY RF: 0 pantoprazole 40 mg Tablet,Delayed Release (Dr/Ec) 40 mg PO DAILY RF: 0 albuterol sulfate 90 mcg/actuation Hfa Aerosol Inhaler 2 puff INHALATION QID PRN (Reason: Shortness Of Breath) RF: 0 prazosin 2 mg Capsule 2 mg PO HS RF: 0 duloxetine 60 mg Capsule,Delayed Release(Dr/Ec) 60 mg PO BID RF: 0 aripiprazole [Abilify] 2 mg Tablet 2 mg PO DAILY RF: 0 tamsulosin 0.4 mg capsule 0.8 mg PO HS RF: 0 amlodipine 5 mg Tablet 5 mg PO DAILY RF: 0 metoprolol tartrate 25 mg Tablet 12.5 mg PO BID RF: 0 Novolin R Regular U-100 Insuln 100 unit/mL Solution 1 sliding scale dose SUBCUT USEASDIRECTD RF: 0 [facility] - Discharge Problem: Falls Qualifiers: Encounter type: initial encounter Qualified Code(s): W19.XXXA - Unspecified fall, initial encounter Chest pain Qualifiers: Chest pain type: unspecified Qualified Code(s): R07.9 - Chest pain, unspecified
[2022-03-26 22:13] LABS: Basophils # (auto) 0.01 K/uL (0-0.2); Basophils % (auto) 0.2 %; Eosinophils # (auto) 0.05 K/uL (0-0.5); Eosinophils % (auto) 0.9 %; Hematocrit (blood only) 37.6 % (42-52); Hemoglobin 12.3 g/dL (14.0-18.0); Immature Granulocytes # (auto) 0.02 K/uL (0.00-0.02); Immature Granulocytes % (auto) 0.4 %; Lymphocytes # (auto) 1.09 K/uL (1.2-3.4); Lymphocytes % (auto) 19.6 %; Mean Corpuscular Hemoglobin 28.1 pg (25-34); Mean Corpuscular Hgb Conc 32.7 g/dL (32-36); Mean Corpuscular Volume 85.8 fL (80-100); Monocytes # (auto) 0.33 K/uL (0.11-0.59); Monocytes % (auto) 5.9 %; Neutrophils # (auto) 4.05 K/uL (1.4-6.5); Platelet Count 179 K/uL (130-400); RDW Standard Deviation 47.3 fL (36.4-46.3); Red Blood Count 4.38 M/uL (4.7-6.1); White Blood Count 5.55 K/uL (4.8-10.8)
[2022-03-26 22:16] LABS: iSTAT Creatinine 1.5 mg/dl (0.6-1.3); iSTAT Hemoglobin 12.2 g/dl (14.0-18.0); iSTAT Ionized Calcium 1.33 mmol/l (1.12-1.32); iSTAT Potassium 4.6 mmol/L (3.3-5.0)
[2022-03-26 22:39] LABS: Partial Thromboplastin Ratio 0.8; Partial Thromboplastin Time 20.8 Seconds (21.0-31.0); Prothrombin Time 10.8 Seconds (9.0-12.0)
[2022-03-26 22:42] LABS: Albumin Globulin Ratio 1.5 (0.9-2); Albumin Level 4.3 gm/dl (3.4-5.0); BUN Creatinine Ratio 14.8 (10-20); Bilirubin,Total 0.4 mg/dl (0.2-1.0); Calcium 10.5 mg/dl (8.5-10.1); Creatinine Clr Calc Pharmacy 59.6 ml/min; Est GFR (African American) 59.1 ml/min; Globulin 2.8 gm/dl (2.5-4.0); Potassium 4.5 mmol/L (3.5-5.1); Total Protein 7.1 gm/dl (6.0-8.3)
[2022-03-26] MEDS ORDERED: SODIUM CHLORIDE 0.9% 500 ML IV ONE (23:04)
[2022-03-26] MEDS ORDERED: OPTIRAY 320 125ml IV ONE (23:08)
--- NOTE | 2022-03-27 01:23 | History & Physical Report ---
Date of Service March 27, 2022 Assessment & Plan (1) Falls: Plan: 56yo male with HTN, CAD/UT in 2000 s/p PCI x2, tricuspid insufficiency, IDDM2, asthma, history of CVA (2008), CKD, GERD, chronic back pain s/p spinal cord stimulator placement (2009, still in-situ but nonfunctional), and MDD presents with chest pain and upper back/neck pain after multiple falls. Syncope, dizziness Patient with frequent episodes of dizziness and falling, which seems to have all started last July Differential includes BPPV, seizure, cardiogenic syncope, CVA Patient has had orthostatic VS performed multiple times and has been normal each time Imaging findings as follows (all are [employer] reads; awaiting official overread): CT head: no evidence of acute intracranial pathology CT c-spine: no evidence of acute cervical spine pathology; moderate DJD at C5-6 and C6-7; disc bulge at C5-6 causing mild canal stenosis CT t-spine: no evidence of acute thoracic spine pathology, remote superior endplate fracture deformities of T1-3; cord stimulator present in dorsal epidural space at T7-8 CTA chest: findings concerning for bronchitis; no evidence of PE CT a/p: no evidence of acute intraabdominal pathology BPPV supported by persistent dizziness before and after falling, but not supported by loss of consciousness a/w his falling episodes Seizure supported by lack of awareness during falls, family history, and symptoms after falling, but not supported by long duration of prodromal dizziness Cardiogenic syncope supported by patient's known structural heart disease, CP a/w syncope, and abnormal EKG; however, presence of a prodrome and persistent dizziness upon regaining consciousness argue against cardiac causes CVA supported by prior CVA history, and could explain patient's dizziness; however, no evidence seen on CT; unfortunately patient cannot get an MRI due to the presence of a dormant spinal cord stimulator Admit to med/surg telemetry Fall precautions Consider neurology consult, consider referral for tilt-table test Restart meclizine 12.5mg PO tid prn dizziness Chest pain Patient has recently undergone extensive cardiac workup, including a normal cath (02/22) and echo (03/26/22, see HPI for echo findings) Initial and 2-hour hsTroponin both wnl; EKG with nonspecific T wave abnormalities but no overt ischemic change Suspect CP secondary to falls; further cardiac workup not indicated DM2 HbA1c 7.9% (02/15/22) Patient's home regimen held on admission Continue BSG checks, sliding-scale insulin, hypoglycemic protocol AC on CKD Creatinine on admission 1.49 (baseline 1.07), suspect prerenal cause given patient's poor appetite and hemoconcentration compared to prior labs LR 500mL bolus given in ED, additional 1L ordered Avoid nephrotoxins, encourage PO intake, trend daily BMP Asthma: continue home inhalers BPH: continue home regimen CAD, HLD: continue home statin HTN: BP well-controlled at this time; continue home regimen History of CVA: patient not on anticoagulation at home; lovenox while in hospital GERD: continue home regimen Gout: continue home regimen MDD: continue home regimen FEN: heart healthy, DM2 diet Code status: full code DVT ppx: lovenox PT/OT: ordered Dispo: med/surg telemetry (2) Chest pain: (3) CAD (coronary artery disease): (4) Asthma: (5) Depression: (6) Diabetes mellitus: (7) History of CVA (cerebrovascular accident): (8) History of repair of hiatal hernia: (9) Hyperlipidemia: (10) Sarcoidosis: (11) Syncope and collapse: History of Present Illness Primary Care Provider: [facility] 56yo male with HTN, CAD/UT in 2000 s/p PCI x2, tricuspid insufficiency, IDDM2, asthma, history of CVA (2008), CKD, GERD, chronic back pain s/p spinal cord stimulator placement (2009, still in-situ but nonfunctional), and MDD presents with chest pain and upper back/neck pain after multiple falls today. Patient reports he became dizzy and fell about 3-4 times today. His episodes of dizziness come on suddenly and last anywhere from a few minutes to a few hours. This has been going on since July and usually happens about once every other day but sometimes occurs multiple times a day. Other than dizziness/vertigo, patient denies prodromal symptoms before these falls, including vision changes. Patient does not remember falling, and when he wakes up on the ground, he is still dizzy. These dizzy spells can occur while in any position including while laying down, and do not seem to be related to exertion. Patient describes his dizziness as lightheadedness and sometimes also has a sensation that the room is spinning. He does not think he feels particularly confused or fatigue upon regaining consciousness. He used to take meclizine for dizziness, which did help, but he ran out a while ago. He thinks he hit his head during at least one of the falls. Patient reports some head, chest, abdomen, and upper back pain as a result of the falls. Patient reports tingling in his hands and feet but notes these symptoms are not new and normally do not interfere with ambulation. Patient received ASA and a few doses of nitro while en route to [facility], which helped his chest pain a bit. Patient denies fever, chills, changes in vision or hearing, nausea, vomiting, or dysuria. Of note, patient is scheduled to undergo tricuspid valve replacement and pacemaker placement scheduled for 04/13/22 at [facility] for severe tricuspid regurgitation. As part of the workup prior to his operation, patient had an echo performed at [facility] yesterday (03/26/22) showing normal LV size and systolic function, EF 55-60%, no LVH, mild/mod RV dilation with normal function, mild RA dilation, severe tricuspid regurgitation, and mild/moderate pulmonary regurgitation without stenosis. Allergies Allergy/AdvReac Type Severity Reaction Status Date / Time lisinopril Allergy Severe ANAPHYLAXIS Verified 03/11/22 11:40 ibuprofen Allergy Intermediate HIVES Verified 03/11/22 11:40 morphine Allergy Intermediate HIVES Verified 03/11/22 11:40 capsaicin Allergy Unknown Unknown Verified 03/11/22 11:40 phenytoin Allergy Unknown Unknown Verified 03/11/22 11:40 Home Medications Medication Instructions Recorded Confirmed Type allopurinol 100 mg tablet 100 mg PO QAM 09/23/20 03/11/22 History aspirin 81 mg tablet,delayed 81 mg PO QAM 09/23/20 03/11/22 History release calcium carbonate 600 mg-vitamin 2 tab PO BID 09/23/20 03/11/22 History D3 5 mcg (200 unit) tablet finasteride 5 mg tablet 5 mg PO QAM 09/23/20 03/11/22 History rosuvastatin 20 mg tablet 20 mg PO HS 09/23/20 03/11/22 History valsartan 80 mg tablet 80 mg PO QAM 09/23/20 03/11/22 History ciclesonide 160 mcg/actuation 1 puff INHALATION BID 07/21/21 03/11/22 History aerosol inhaler (Alvesco) docusate sodium 100 mg capsule 200 mg PO BID 07/21/21 03/11/22 History meclizine 12.5 mg tablet 12.5 mg PO TID PRN #30 tab 07/24/21 03/11/22 Rx polyethylene glycol 3350 17 gram 17 g PO DAILY #1 btl 07/24/21 03/11/22 Rx oral powder packet (Miralax) albuterol sulfate 90 mcg/actuation 2 puff INHALATION QID PRN 02/06/22 03/11/22 History aerosol inhaler aluminum hydrox-magnesium carb 95 30 ml PO PCHS PRN 02/06/22 03/11/22 History mg-358 mg/15 mL oral suspension (Acid Gone Antacid) amlodipine 5 mg tablet 5 mg PO DAILY 02/06/22 03/11/22 History aripiprazole 2 mg tablet (Abilify) 2 mg PO DAILY 02/06/22 03/11/22 History duloxetine 60 mg capsule,delayed 60 mg PO BID 02/06/22 03/11/22 History release insulin glargine 100 unit/mL 11 unit SUBCUT DAILY 02/06/22 03/11/22 History subcutaneous solution insulin regular human 100 unit/mL 1 sliding scale dose SUBCUT 02/06/22 03/11/22 History injection solution (Novolin R USEASDIRECTD Regular U-100 Insulin) metoprolol tartrate 25 mg tablet 12.5 mg PO BID 02/06/22 03/11/22 History pantoprazole 40 mg tablet,delayed 40 mg PO DAILY 02/06/22 03/11/22 History release prazosin 2 mg capsule 2 mg PO HS 02/06/22 03/11/22 History tamsulosin 0.4 mg capsule 0.8 mg PO HS 02/06/22 03/11/22 History famotidine 20 mg tablet 20 mg PO BID #60 tab 02/25/22 03/11/22 Rx pantoprazole 40 mg tablet,delayed 40 mg PO BID #60 tab 02/25/22 03/11/22 Rx release (Protonix) Past Med/Surg History Medical History Acute myocardial infarction 2020 s/p LAD stent Angina pectoris Asthma Atypical chest pain Bowel obstruction CAD (coronary artery disease) Depression DM type 2 (diabetes mellitus, type 2) Gout Head injury History of CVA (cerebrovascular accident) Hx SBO Hyperlipidemia Hypertension Iron deficiency anemia Peptic ulcer disease Pulmonary hypertension Sarcoidosis Skin cancer Syncope Tricuspid regurgitation Surgical History H/O exploratory laparotomy "05/31/2015 with lysis of adhesions, release of bowel obstruction, repair of incisional hernia" H/O ventral hernia repair History of back surgery History of repair of hiatal hernia (02/19/22) Laparoscopic Repair of Hiatal Hernia; partial gastric fundoplication; posterior gastropexy(Not Applicable) - Luke De La Fuente, S/P cardiac cath S/P coronary artery stent placement (05/07/13) "2000" Family History Mother , age 67 Lung cancer Father , age 68 Lung cancer Brother Stroke age 55 Social History Smoking Status: Never smoker Hx Alcohol Use: No Hx Substance Use: No Preferred Language: Mohawk Communication Ability: Effective Visual Impairment: No Limitations Administrative Services Officer Required: No Beliefs That Will Affect Care: None Current Living Situation: Other Current Living Situation Comment: nursing home - [facility] Feels Safe at Home: Yes Assistive Devices: None Physical Exam Physical Exam: Constitutional: well-appearing, no acute distress, laying in hospital bed, two nursing home guards present at bedside HEENT: NCAT, PERRL, EOMI CV: regular rhythm, holodiastolic murmur appreciated, extremities well-perfused, no LE edema Resp: CTABL, no wheezes/rales/rhonchi appreciated, no increased work of breathing GI: soft, nondistended, mild tenderness to palpation of the epigastrium, BS normoactive MSK: no gross deformities appreciated Neuro: alert, oriented, no focal neurologic deficit appreciated, CN2-12 grossly intact, UE and LE strength 5/5 BL, [id number] test unremarkable Results & Data Results & Data ([facility]) Vital Signs (Past 12 Hours) Vital Signs Temp Pulse Pulse Resp BP BP Pulse Ox 03/27/22 00:32 63 20 129/80 98 06/23/22 23:38 78 18 120/88 98 03/26/22 22:40 78 19 99 03/26/22 22:30 81 17 129/86 99 03/26/22 22:20 83 17 97 03/26/22 22:10 81 15 96 03/26/22 22:00 75 15 121/84 96 03/26/22 21:53 83 19 94 03/26/22 21:48 37.1 C 85 17 128/74 97 Supervising Physician Co-Signing Physician Notes Attending addendum: I have physically seen this patient, have supervised the medical residents activities, and agree with the H&P unless as otherwise noted. Assessment and Plan: Syncope/dizziness/increasing frequency of falls- The patient will be admitted to telemetry for serial cardiac enzymes, serial EKG's, cardiac rhythm monitoring and a 2-D echocardiogram with Dopplers. Differential including but not limited to arrhythmia, orthostasis, BPPV, CVA CT imaging without cause for symptoms Fall precautions Neurochecks Consult neurology Meclizine as needed symptoms Remaining orders and notations as noted Resident Activity Tracking Resident Involvement: Resident Care Provided and Manager Brand Coverage Note Care Provided: Adult Hospital Medicine (1) Chest pain Chest pain type: unspecified Qualified Code(s): R07.9 - Chest pain, unspecified (2) Falls Encounter type: initial encounter Qualified Code(s): W19.XXXA - Unspecified fall, initial encounter
[2022-03-27] MEDS ORDERED: MECLIZINE 12.5 MG TAB PO PRN (03:36)
[2022-03-27] MEDS ORDERED: DEXTROSE 50% 50 ML SYRINGE IV PRN (03:36)
[2022-03-27] MEDS ORDERED: CARBOHYDRATES FOR HYPOGLYCEMIA PO PRN (03:36)
[2022-03-27] MEDS ORDERED: ACETAMINOPHEN 325 MG TAB PO PRN (03:36)
[2022-03-27] MEDS ORDERED: LACTATED RINGER'S 500 ML IV ONE (03:36)
[2022-03-27] MEDS ORDERED: GLUCOSE 10 TABS/TUBE PO PRN (03:36)
[2022-03-27] MEDS ORDERED: ALBUTEROL HFA 8 GM INHALER INH PRN (03:36)
[2022-03-27] MEDS ORDERED: GLUCOSE 40% GEL 15 GM TUBE PO PRN (03:36)
[2022-03-27] MEDS ORDERED: GLUCAGON FOR INJ 1 MG VIAL SQ PRN (03:36)
[2022-03-27] MEDS ORDERED: ONDANSETRON INJ 2 MG/ML 2 ML VIAL IV PRN (03:36)
[2022-03-27 06:22] LABS: Basophils # (auto) 0.01 K/uL (0-0.2); Basophils % (auto) 0.2 %; Eosinophils # (auto) 0.06 K/uL (0-0.5); Eosinophils % (auto) 1.3 %; Hematocrit (blood only) 35.4 % (42-52); Hemoglobin 11.5 g/dL (14.0-18.0); Immature Granulocytes # (auto) 0.01 K/uL (0.00-0.02); Immature Granulocytes % (auto) 0.2 %; Lymphocytes # (auto) 1.21 K/uL (1.2-3.4); Lymphocytes % (auto) 26.5 %; Mean Corpuscular Hemoglobin 27.8 pg (25-34); Mean Corpuscular Hgb Conc 32.5 g/dL (32-36); Mean Corpuscular Volume 85.7 fL (80-100); Monocytes # (auto) 0.44 K/uL (0.11-0.59); Monocytes % (auto) 9.6 %; Neutrophils # (auto) 2.84 K/uL (1.4-6.5); Neutrophils % (auto) 62.2 %; Platelet Count 169 K/uL (130-400); RDW Standard Deviation 47.2 fL (36.4-46.3); Red Blood Count 4.13 M/uL (4.7-6.1); White Blood Count 4.57 K/uL (4.8-10.8)
[2022-03-27 06:32] LABS: BUN Creatinine Ratio 15.7 (10-20); Calcium 9.8 mg/dl (8.5-10.1); Creatinine Clr Calc Pharmacy 73.4 ml/min; Est GFR (Non-African American) 65.6 ml/min; Potassium 4.3 mmol/L (3.5-5.1)
--- NOTE | 2022-03-27 07:57 | CT Scan Report ---
CT OF THE HEAD WITHOUT CONTRAST CLINICAL HISTORY: fall, LOC COMPARISON STUDY: Head CT July 21, 2021. CT DOSE: 3773.77 mGy.cm TECHNIQUE: Helical axial images of the head were obtained without IV contrast. Automated exposure con trol was utilized for the study. A dose lowering technique was utilized adhering to the principles o f ALARA. FINDINGS: No acute intracranial hemorrhage, midline shift or mass effect is present. The ventricular system is unremarkable. The basal cisterns are patent. No extra-axial collections are present. There are no findings to suggest acute dural sinus thrombosis or acute territorial infarct. No significant calvarial abnormalities are present. Visualized portions of the sinuses and mastoid air cells are olivier ar. IMPRESSION: 1. No acute intracranial findings. 2. No acute calvarial fracture. ACT 112: Negative or not required by law. Electronically signed by: Ferny England M.D. 03/27/2022 7:55 AM
[2022-03-27] MEDS: INSULIN ASPART PER UNIT SC SCH ×4 (08:09→22:01)
--- NOTE | 2022-03-27 08:09 | CT Scan Report ---
ABDOMEN AND PELVIS CT WITH IV CONTRAST HISTORY: Acute atypical chest pain with dizziness and mid back pain fall, dizzy, pain TECHNIQUE: Multiaxial CT images of the abdomen and pelvis were performed following the IV administrat ion of 119 cc of Optiray, A dose lowering technique was utilized adhering to the principles of ALARA . CT thoracic spine was also obtained. COMPARISON STUDY: CTA chest of same day and also 02/14/2022 and also 02/14/2022, CT abdomen and pelvis 07/21/2021 FINDINGS: CT ABDOMEN/PELVIS: Cardiomegaly. Mild dependent subsegmental bibasilar atelectasis. There is no pneumatosis or pneumoper itoneum identified. Wedge-shaped area of decreased attenuation involving the superior medial spleen m easuring up to approximately 5 cm extending to the splenic capsule is suggestive of a splenic infarct . Retrospect, this was likely present on the 02/20/2022 CTA of the chest. No perisplenic fluid. Unrema rkable pancreas, gallbladder and adrenal glands. The liver is within normal limits. There is patency of the hepatic and portal veins. Unremarkable kidneys. There is no hydronephrosis. Partially decompressed urinary bladder with mild wa ll thickening. Mild atherosclerosis of the aorta without aneurysm. There is no lymphadenopathy. Dista l esophageal wall thickening with moderate sized hiatal hernia. There is decreased inflammatory stran ding surrounding the hernia sac compared to the prior study. Mildly distended stomach. Duodenal diver ticulum. The rectosigmoid is decompressed. Moderate fecal retention. There is mild to moderate upstre am gaseous distention of the large bowel without obstructing lesion identified. No small bowel obstru ction. Normal appendix. Postoperative changes of the ventral abdominal wall with diastases recti. A s wilfrid stability device is present with battery pack within the right superior subcutaneous gluteal ti ssues. The leads enter the central canal at the T9-T10 level with distal tips extending superiorly ou tside the [id number]. No acute fracture is identified. CT THORACIC SPINE: No acute fracture, subluxation or endplate erosion. Minimal multilevel spondylitic spurring and facet arthrosis of the thoracic spine. Moderate disc space narrowing with spondylitic spurring at C6-C7 wi th moderate facet arthrosis of the lower cervical spine. Unremarkable appearance of the spinal stimul ator leads terminating at the T5-T6 level. Minimal superior endplate compression involving the T1, T2 and T3 segments. No acute fracture line or paravertebral edema. Prior laminectomy at the T9 level. N o high-grade central canal or neural foraminal narrowing is identified. Mildly distended debris fille d esophagus. IMPRESSION: 1. No acute posttraumatic intra-abdominal or intrapelvic abnormality. 2. 5 cm wedge-shaped area of decreased attenuation involving the superior medial spleen is suggestive of a subacute splenic infarct. 3. Moderate fecal retention with gaseous distention of the colon. 4. No bowel obstruction or bowel wall thickening. 5. No acute fracture or subluxation of the thoracic spine. 6. Minimal superior endplate compression of the T1, T2 and T3 segments is likely chronic. 7. Unremarkable appearance of the spinal stimulator device and intrathecal leads. ACT 112: Negative or not required by law. The above report was generated using voice recognition software. It may contain grammatical, syntax o r spelling errors. Electronically signed by: Christopher Byers M.D. 03/27/2022 8:08 AM
--- NOTE | 2022-03-27 08:29 | CT Scan Report ---
CT OF THE CERVICAL SPINE WITHOUT CONTRAST CLINICAL HISTORY: fall COMPARISON STUDY: No previous studies for comparison. TECHNIQUE: Helical axial images of the cervical spine were obtained without IV contrast. Sagittal a nd coronal reconstructions were viewed. Automated exposure control was utilized for the study. A do se lowering technique was utilized adhering to the principles of ALARA. FINDINGS: There is mild reversal of the normal cervical lordosis. Vertebral body heights are maintain ed. No acute cervical spine fracture or subluxation is present. There is no prevertebral edema. Facet joints are intact. Moderate multilevel degenerative changes are present. Disc space narrowing is mo st pronounced at C6-C7. IMPRESSION: No acute cervical spine fracture or subluxation. ACT 112: Negative or not required by law. Electronically signed by: Ferny England M.D. 03/27/2022 8:28 AM
--- NOTE | 2022-03-27 08:37 | CT Scan Report ---
CT ANGIOGRAPHY OF THE CHEST, PULMONARY EMBOLUS PROTOCOL CLINICAL HISTORY: PE, fall, LOC chest pain dizzy COMPARISON STUDY: Chest CT February 20, 2022. Chest radiograph February 24, 2022. TECHNIQUE: Following IV administration of 119 mL of Optiray, helical axial images of the chest were o btained utilizing the pulmonary embolus protocol. Maximal intensity projections and sagittal and cor onal reformats were viewed on an independent 3D workstation. IV contrast was administered without co mplication. Automated exposure control was utilized for the study. A dose lowering technique was ut ilized adhering to the principles of ALARA. FINDINGS: No pulmonary emboli are identified although sensitivity is diminished given suboptimal opa cification. Moderate cardiomegaly is noted. There is no pericardial effusion. No thoracic aortic diss ection is present. There is no evidence for traumatic injury to the thoracic aorta. There is moderate coronary artery calcification. Moderate sized hiatal hernia is noted. No pneumothorax or pleural eff usion is noted. Subpleural groundglass opacities reflect atelectasis. No pulmonary contusion is prese nt. Pneumomediastinum on prior CT February 20, 2022 has resolved. Intracanalicular electrodes are partiall y imaged. No acute thoracic spine or rib fractures are identified. A moderate sized splenic infarct i s noted. IMPRESSION: 1. No pulmonary emboli identified although sensitivity diminished given suboptimal opacification. 2. No acute traumatic findings within the chest. 3. Moderate sized splenic infarct. ACT 112: Negative or not required by law. Electronically signed by: Ferny England M.D. 03/27/2022 8:34 AM
[2022-03-27] MEDS: FINASTERIDE 5 MG TAB PO SCH (08:49)
[2022-03-27] MEDS: allopurinoL 100 MG TAB PO SCH (08:49)
[2022-03-27] MEDS: amLODIPine BESYLATE 5 MG TAB PO SCH (08:49)
[2022-03-27] MEDS: PANTOprazole 40 MG TAB PO SCH ×2 (08:49→21:02)
[2022-03-27] MEDS: FAMOTIDINE 20 MG TAB PO SCH ×2 (08:49→21:01)
[2022-03-27] MEDS: DULoxetine HCL 60 MG CAP PO SCH ×2 (08:49→21:00)
[2022-03-27] MEDS: ASPIRIN 81 MG ECTAB PO SCH (08:49)
[2022-03-27] MEDS: VALSARTAN 80 MG TAB PO SCH (08:49)
[2022-03-27] MEDS: METOPROLOL TARTRATE 25 MG TAB PO SCH ×2 (08:50→21:01)
[2022-03-27] MEDS: ARIPIprazole 1 MG/ML ORAL SOLN 150 ML BTL PO SCH (08:50)
[2022-03-27] MEDS: FLUTICASONE FUROATE 200MCG 14 PUFFS/INHALER INH SCH (08:51)
[2022-03-27] MEDS: ENOXAPARIN INJ 40 MG/0.4 ML SYR SQ SCH (08:51)
--- NOTE | 2022-03-27 11:55 | Neurology Consultation ---
Date of Consultation March 27, 2022 Assessment & Plan (1) Dizzy: (2) Syncope and collapse: (3) Depression: (4) History of CVA (cerebrovascular accident): Patient has had several acute episodes yesterday March 26 of vertiginous feelings followed by losing balance and falling. On 2 of these occasions he lost consciousness for a few seconds. There was no stiffening, jerking, urinary incontinence, or tongue biting noted. Patient has no focal findings on exam but when he moves his head to the side to side he does have vertiginous feelings much like yesterday. He has history of depression and some abnormal involuntary movements of his tongue likely tardive dyskinesia from chronic neuroleptic use. He has a history of CVA in 2008 but I have no further details. The patient has significant cardiac issues and is apparently going to [facility] for some sort of cardiac procedure. Yesterday he had a lot of tests and consultations including an MRI he believes. Overall, therefore, I do not believe these events represent seizures. I believe they are inner ear in origin with vertigo followed by orthostasis or vasovagal syncope leading to a loss of consciousness briefly. His cardiac condition might Recommendations: 1. consider MRI of the brain, with and without contrast, with attention to the inner ears. Check with compatibility of spinal cord stimulator but he claims he had an MRI of [facility] yesterday. 2. I do not believe he needs any other neurologic testing at this time. 3. use meclizine as needed for positional vertigo. Overall, I spent a total of 60 minutes with this case including review of records, direct evaluation the patient bedside, and discussion of the case with the patient and RN at bedside as well as Dr. Choi including differential diagnosis and treatment options. History of Present Illness Reason for Consultation: Patient is a 56-year-old, who I was asked to see at the request of Dr. Warren, for neurologic consultation regarding syncope and dizziness Requesting Physician: Dr. Warren Attending Physician: Jeremy Choi MD History of Present Illness patient has a history of hypertension, diabetes, coronary artery disease and other heart issues as well as I history of stroke in 2008. He told me that his right side became weak but he recovered. Low back has chronic pain and he had a spinal cord stimulator placed years ago but has been nonfunctional for many years. He states that he an MRI at [facility] yesterday. Patient got up at 0700 yesterday feeling his baseline. He was taken to [facility] to meet with doctors and have tests because of his upcoming card iac procedure there. He got back to [facility] around 1630. Around 1800, while sitting on his bed in the cell block, he stood up and walked 3 steps over to the fan to readjusted and had vertigo. He lost his balance and actually did not recall falling although he woke up on 1 knee ( must of only been "out" for a second or 2). He then went back to his bed. A little later on in the evening he was standing by his Cell doorway when he suddenly had vertigo and went down losing his balance. He did not have any loss of consciousness. He then went to lay back down in the bed. Medical personnel came and they asked him to stand up and walk to them. He did so and the room was spinning. He lost consciousness and apparently hit the right side of his head on the ground before they could catch. Again, he only had a loss of consciousness for a few seconds at most. He denies ringing in his ears, hearing loss, or ear pain. He arrived to the emergency room March 26 at 21:48, with a temperature of 37.1, pulse 85 and regular, respiratory rate 17 and comfortable, blood pressure 128/74, and O2 saturation 97 percent. Exam was nonfocal and unremarkable. CBC and Chem profile were largely unremarkable although the creatinine was 1.49 and glucose 114. He has been in the emergency room lying and whenever he turns are moves his head he will get vertiginous. He has not passed out since he has been in the emergency room. Laboratory studies this morning showed mild anemia on CBC. Glucose was 124 but the creatinine was normal. Lying in bed he is asymptomatic. Blood pressure this morning is 123/85 and he is afebrile. CT scan of the cervical spine and thoracic spine were unremarkable with no acute fractures. There were some old thoracic compression fracture seen. CT the abdomen and pelvis showed a possible splenic infarct of nonspecific nature. CT angiography of the chest was unremarkable. Allergies Allergy/AdvReac Type Severity Reaction Status Date / Time lisinopril Allergy Severe ANAPHYLAXIS Verified 03/11/22 11:40 ibuprofen Allergy Intermediate HIVES Verified 03/11/22 11:40 morphine Allergy Intermediate HIVES Verified 03/11/22 11:40 capsaicin Allergy Unknown Unknown Verified 03/11/22 11:40 phenytoin Allergy Unknown Unknown Verified 03/11/22 11:40 Home Medications Medication Instructions Recorded Confirmed Type allopurinol 100 mg tablet 100 mg PO QAM 09/23/20 03/11/22 History aspirin 81 mg tablet,delayed 81 mg PO QAM 09/23/20 03/11/22 History release calcium carbonate 600 mg-vitamin 2 tab PO BID 09/23/20 03/11/22 History D3 5 mcg (200 unit) tablet finasteride 5 mg tablet 5 mg PO QAM 09/23/20 03/11/22 History rosuvastatin 20 mg tablet 20 mg PO HS 09/23/20 03/11/22 History valsartan 80 mg tablet 80 mg PO QAM 09/23/20 03/11/22 History ciclesonide 160 mcg/actuation 1 puff INHALATION BID 07/21/21 03/11/22 History aerosol inhaler (Alvesco) docusate sodium 100 mg capsule 200 mg PO BID 07/21/21 03/11/22 History meclizine 12.5 mg tablet 12.5 mg PO TID PRN #30 tab 07/24/21 03/11/22 Rx polyethylene glycol 3350 17 gram 17 g PO DAILY #1 btl 07/24/21 03/11/22 Rx oral powder packet (Miralax) albuterol sulfate 90 mcg/actuation 2 puff INHALATION QID PRN 02/06/22 03/11/22 History aerosol inhaler aluminum hydrox-magnesium carb 95 30 ml PO PCHS PRN 02/06/22 03/11/22 History mg-358 mg/15 mL oral suspension (Acid Gone Antacid) amlodipine 5 mg tablet 5 mg PO DAILY 02/06/22 03/11/22 History aripiprazole 2 mg tablet (Abilify) 2 mg PO DAILY 02/06/22 03/11/22 History duloxetine 60 mg capsule,delayed 60 mg PO BID 02/06/22 03/11/22 History release insulin glargine 100 unit/mL 11 unit SUBCUT DAILY 02/06/22 03/11/22 History subcutaneous solution insulin regular human 100 unit/mL 1 sliding scale dose SUBCUT 02/06/22 03/11/22 History injection solution (Novolin R USEASDIRECTD Regular U-100 Insulin) metoprolol tartrate 25 mg tablet 12.5 mg PO BID 02/06/22 03/11/22 History pantoprazole 40 mg tablet,delayed 40 mg PO DAILY 02/06/22 03/11/22 History release prazosin 2 mg capsule 2 mg PO HS 02/06/22 03/11/22 History tamsulosin 0.4 mg capsule 0.8 mg PO HS 02/06/22 03/11/22 History famotidine 20 mg tablet 20 mg PO BID #60 tab 02/25/22 03/11/22 Rx pantoprazole 40 mg tablet,delayed 40 mg PO BID #60 tab 02/25/22 03/11/22 Rx release (Protonix) Patient History Medical History Acute myocardial infarction 2020 s/p LAD stent Angina pectoris Asthma Atypical chest pain Bowel obstruction CAD (coronary artery disease) Depression DM type 2 (diabetes mellitus, type 2) Gout Head injury History of CVA (cerebrovascular accident) Hx SBO Hyperlipidemia Hypertension Iron deficiency anemia Peptic ulcer disease Pulmonary hypertension Sarcoidosis Skin cancer Syncope Tricuspid regurgitation Surgical History H/O exploratory laparotomy "05/31/2015 with lysis of adhesions, release of bowel obstruction, repair of incisional hernia" H/O ventral hernia repair History of back surgery History of repair of hiatal hernia (02/19/22) Laparoscopic Repair of Hiatal Hernia; partial gastric fundoplication; posterior gastropexy(Not Applicable) - [facility], S/P cardiac cath S/P coronary artery stent placement (05/07/13) "2000" Family History Mother , age 67 Lung cancer Father , age 68 Lung cancer Brother Stroke age 55 Social History Smoking Status: Never smoker Hx Alcohol Use: No Hx Substance Use: No Preferred Language: Yoruba Communication Ability: Effective Visual Impairment: No Limitations Stitch Rubber Required: No Beliefs That Will Affect Care: None Current Living Situation: Other Current Living Situation Comment: jail - [facility] Feels Safe at Home: Yes Safety Concerns: Feels Safe At This Time Assistive Devices: None Review of Systems Constitutional: no fever, no fatigue and no weakness Eyes: no diplopia, no eye pain and no worsening vision Ear, Nose, Mouth, Throat: + dizziness ( With head movement); no ear pain, no tinnitus, no hearing loss, no snoring, no hoarseness and no dysphagia Respiratory: no cough and no dyspnea Cardiovascular: no chest pain, no palpitations and no lightheadedness Gastrointestinal: no abdominal pain, no nausea and no vomiting Musculoskeletal: no back pain, no neck pain, no radicular pain, no joint pain and no myalgia Integumentary: no rash and no lesions Neurologic: no gait abnormality, no localized weakness, no generalized weakness, no tingling, no numbness, no tremor(s), no abnormal movements, no headache(s), no abnormal speech, no confusion and no memory loss Psychiatric: no depression, no irritability, no anxiety, no difficulty concentrating, no confusion and no hallucinations Endocrine: no fatigue and no flushing Hematologic / Lymphatic: no easy bleeding and no easy bruising Allergy / Immunological: no urticaria and no problem reported Exam (Neuro) Physical Exam: The patient is right-handed. The patient is awake, alert, and attentive. Speech is normal without any aphasia or dysarthria. The patient can name objects, repeat phrases, and has normal spontaneous speech. Mentation and thought processes are intact, with orientation to person, place and time, and normal fund of knowledge. Attention and concentration are normal. Mood and affect are normal and appropriate. General appearance and grooming are normal. Short and long-term memory are intact. The discs are sharp with positive venous pulsations bilaterally, although the left was difficult to visualize due to a cataract. There are no exudates, hemorrhages, or blood vessel changes seen. Pupils are 4 mm bilaterally and reactive to light. Extraocular eye muscles are intact without nystagmus. Visual acuity and visual mendosa seem normal grossly to confrontation. There are no deficits to sensation in the face in all 3 distributions of the fifth cranial nerve bilaterally. Corneal reflexes are positive bilaterally. Facial strength and symmetry was normal bilaterally. Hearing seems normal bilaterally. Palate moves well without asymmetry. There is normal sternocleidomastoid and trapezius (shoulder shrug) strength bilaterally. Tongue is midline with good strength bilaterally. The tongue has some movement in and out of his mouth with some lip movement. This is frequent but consistent. Neck has a full range of motion without discomfort. There are no cervical bruits bilaterally. There are no cranial or ocular bruits. Heart is without murmur. There is a regular rhythm and rate. Cervical, thoracic, and lumbar spine are nontender to palpation. Gait is Not tested but stands sitting up in bed is quite normal. When he moves his head side to side he has vertiginous feelings that last a 2nd or 2. He did not have this feeling sitting straight up. With outstretched arms there is no drift. There are no resting, postural, or action tremors. There is no ataxia with finger to nose testing. There is good facility in the hands. No other abnormal involuntary movements are noted. Motor strength is 5/5 diffusely in the arms bilaterally including deltoids, biceps, triceps, brachioradialis, wrist flexors and extensors, egg packer, and intrinsic hand muscles. Motor strength is 5/5 diffusely in the legs bilaterally including hip flexors, quadriceps, hamstrings, gastrocnemius, tibialis anterior, tibialis posterior, and Peroneii muscles. Toe extensors are normal and there is good bulk in the extensor digitorum brevis muscles bilaterally. The limbs have good tone without rigidity or spasticity. There is no atrophy noted in the muscles. Muscle bulk is normal, there is no tenderness to palpation, no myotonia to percussion, and no fasciculations seen. Sensory examination is intact to touch and pin throughout all 4 limbs diffusely. Reflexes are 1/4 in the biceps, triceps, brachioradialis, quadriceps, and Achilles tendons bilaterally. There is no clonus bilaterally. Toes are downgoing with plantar stimulation bilaterally. Peripheral pulses are present and of normal quality distally in all 4 limbs. There is no peripheral edema noted in the limbs. Results & Data ([facility]) Vital Signs (Past 12 Hours) Vital Signs Pulse Resp BP Pulse Ox 03/27/22 11:00 75 18 123/85 99 03/27/22 05:55 80 18 97 03/27/22 03:36 80 16 135/78 97 03/27/22 02:02 56 L 22 148/98 H 98 03/27/22 00:32 63 20 129/80 98 PG Care Time/CCT Total # of Minutes Spent Total Time Spent with Patient: Total time spent is greater than 50% in coordination of care (as documented) at patient's floor/unit and/or counseling patient: Coding Level of Care Code 03199 Office/OBS Consult Lvl 5 Diagnoses Dizzy R42 Syncope and collapse R55 Depression F32.9 History of CVA (cerebrovascular accident) Z86.73 Time Spent (min) 60
--- NOTE | 2022-03-27 12:20 | Hospitalist Progress Note ---
Date of Service March 27, 2022 Assessment & Plan (1) Dizzy: Plan: 1. Patient has been having frequent dizzy spells and frequent falls. States he falls whenever he gets up from a sitting position and also feels dizzy whenever he moves his head from 1 side to the other. Could be presyncope from orthostatic blood pressure changes or cardiogenic presyncope also could be benign paroxysmal positional vertigo. CT scan of the head did not show any acute pathology CT C-spine shows moderate degenerative changes of C5-C6 and C6-C7 also previous concerns of an old stimulator which is nonfunctional. Neurology has evaluated, suggest MRI brain with attention to inner ear Will continue meclizine as needed (2) Diabetes mellitus: Plan: HbA1c 7.9% (02/15/22) Blood glucose under good control insulin sliding scale (3) Tricuspid regurgitation: Plan: patient is scheduled to undergo tricuspid valve replacement and pacemaker placement scheduled for 04/13/22 at [facility] for severe tricuspid regurgitation (4) History of CVA (cerebrovascular accident): Plan: with residual right hemiparesis (5) Depression: (6) Acute myocardial infarction: Plan: d/c in the next 24 hrs Admission and Anticipated Discharge Date Admission Date: March 27, 2022 Subjective patient seen and examined today, still complains of dizziness Review of Systems Review of Systems: All systems reviewed are negative, apart from the ones contained in the history. Physical Exam Physical Exam: The patient is awake, alert and oriented 3, well developed and well nourished, normocephalic and atraumatic, lying in bed and in no acute distress. HEENT--PERRL, EOMI, mucous membranes and oropharynx mildly dry Neck--supple. No JVD. No bruits. Thyroid normal, trachea midline, no adenopathy. Heart--normal S1 and S2. No murmurs, rubs or gallops. Lungs--clear bilaterally, no respiratory distress, no accessory muscle use. Abdomen--normal bowel sounds and soft. Mild epigastric and left sided abdominal pain Extremities--no cyanosis or clubbing. No edema. Dermatologic--normal skin turgor, normal color, no abnormal lymph nodes, no rash. Neurologic--cranial nerves II through XII grossly intact. Right hermes paresis Rheumatologic--normal range of motion. Psychiatric--normal affect. Results & Data Results & Data ([facility]) Vital Signs (Past 12 Hours) Vital Signs Pulse Resp BP Pulse Ox 03/27/22 11:00 75 18 123/85 99 03/27/22 05:55 80 18 97 03/27/22 03:36 80 16 135/78 97 03/27/22 02:02 56 L 22 148/98 H 98 03/27/22 00:32 63 20 129/80 98 PG Care Time/CCT Total # of Minutes Spent Total Time Spent with Patient: Total time spent is greater than 50% in coordination of care (as documented) at patient's floor/unit and/or counseling patient: Coding Level of Care Code 53296 Subseq Hosp Care Lvl 2 Diagnoses Dizzy R42 Diabetes mellitus E11.9 History of CVA (cerebrovascular accident) Z86.73 Acute myocardial infarction I21.9 Tricuspid regurgitation I07.1 Cardiac valve disease etiology: etiology unspecified Depression F32.9 Time Spent (min) 35 (1) Tricuspid regurgitation Cardiac valve disease etiology: etiology unspecified Qualified Code(s): I07.1 - Rheumatic tricuspid insufficiency
--- NOTE | 2022-03-27 12:29 | Electrocardiogram Report ---
Test Reason : Blood Pressure : / mmHG Vent. Rate : 081 BPM Atrial Rate : 081 BPM P-R Int : 150 ms QRS Dur : 102 ms QT Int : 346 ms P-R-T Axes : 060 -08 005 degrees QTc Int : 401 ms Normal sinus rhythm Right bundle branch block Moderate voltage criteria for LVH, may be normal variant Nonspecific T wave abnormality Abnormal ECG When compared with ECG of 21-FEB-2022 20:49, Nonspecific T wave abnormality now evident in Inferior leads Nonspecific T wave abnormality now evident in Anterior leads Confirmed by Amanuel Lanier ([id number]) on 03/27/2022 12:29:10 PM Referred By: REFERRED SELF Confirmed By:Amanuel Lanier
--- NOTE | 2022-03-27 12:29 | Electrocardiogram Report ---
Test Reason : Blood Pressure : / mmHG Vent. Rate : 075 BPM Atrial Rate : 075 BPM P-R Int : 152 ms QRS Dur : 108 ms QT Int : 372 ms P-R-T Axes : 062 -03 012 degrees QTc Int : 415 ms Poor data quality, interpretation may be adversely affected Normal sinus rhythm Right bundle branch block Minimal voltage criteria for LVH, may be normal variant ST elevation, consider early repolarization, pericarditis, or injury Nonspecific T wave abnormality Abnormal ECG When compared with ECG of 26-MAR-2022 21:48, (unconfirmed) No significant change was found Confirmed by Amanuel Lanier ([id number]) on 03/27/2022 12:29:34 PM Referred By: REFERRED SELF Confirmed By:Amanuel Lanier
--- NOTE | 2022-03-27 19:49 | Billing Data ---
Date of Service March 27, 2022 Coding Level of Care Code INT OBSERVATION CARE 70M LVL 3
[2022-03-27] MEDS ORDERED: ROSUVASTATIN CALCIUM 20 MG TAB PO SCH (21:00)
[2022-03-27] MEDS ORDERED: TAMSULOSIN HCL 0.4 MG CAP PO SCH (21:00)
[2022-03-27] MEDS ORDERED: PRAZOSIN HCL 1 MG CAP PO SCH (21:00)
[2022-03-28] MEDS: ENOXAPARIN INJ 40 MG/0.4 ML SYR SQ SCH (07:23)
[2022-03-28 07:50] LABS: Basophils # (auto) 0.01 K/uL (0-0.2); Basophils % (auto) 0.3 %; Eosinophils # (auto) 0.08 K/uL (0-0.5); Eosinophils % (auto) 2.4 %; Hematocrit (blood only) 35.5 % (42-52); Hemoglobin 11.5 g/dL (14.0-18.0); Lymphocytes # (auto) 1.12 K/uL (1.2-3.4); Lymphocytes % (auto) 34.3 %; Mean Corpuscular Hemoglobin 27.5 pg (25-34); Mean Corpuscular Hgb Conc 32.4 g/dL (32-36); Mean Corpuscular Volume 84.9 fL (80-100); Mean Platelet Volume 7.9 fL (7.4-10.4); Monocytes # (auto) 0.29 K/uL (0.11-0.59); Monocytes % (auto) 8.9 %; Neutrophils # (auto) 1.77 K/uL (1.4-6.5); Neutrophils % (auto) 54.1 %; Platelet Count 176 K/uL (130-400); RDW Coefficient of Variation 14.9 % (11.5-14.5); RDW Standard Deviation 46.6 fL (36.4-46.3); Red Blood Count 4.18 M/uL (4.7-6.1); White Blood Count 3.27 K/uL (4.8-10.8)
[2022-03-28 08:16] LABS: BUN Creatinine Ratio 13.7 (10-20); Calcium 8.8 mg/dl (8.5-10.1); Creatinine Clr Calc Pharmacy 85.9 ml/min; Est GFR (African American) 93.5 ml/min; Est GFR (Non-African American) 80.6 ml/min; Potassium 3.8 mmol/L (3.5-5.1)
[2022-03-28] MEDS: INSULIN ASPART PER UNIT SC SCH ×2 (08:22→12:18)
[2022-03-28] MEDS: ASPIRIN 81 MG ECTAB PO SCH (08:23)
[2022-03-28] MEDS: allopurinoL 100 MG TAB PO SCH (08:23)
[2022-03-28] MEDS: ARIPIprazole 1 MG/ML ORAL SOLN 150 ML BTL PO SCH (08:23)
[2022-03-28] MEDS: VALSARTAN 80 MG TAB PO SCH (08:24)
[2022-03-28] MEDS: amLODIPine BESYLATE 5 MG TAB PO SCH (08:24)
[2022-03-28] MEDS: FINASTERIDE 5 MG TAB PO SCH (08:24)
[2022-03-28] MEDS: DULoxetine HCL 60 MG CAP PO SCH (08:25)
[2022-03-28] MEDS: FLUTICASONE FUROATE 200MCG 14 PUFFS/INHALER INH SCH (08:25)
[2022-03-28] MEDS: PANTOprazole 40 MG TAB PO SCH (08:25)
[2022-03-28] MEDS: METOPROLOL TARTRATE 25 MG TAB PO SCH (08:25)
[2022-03-28] MEDS: FAMOTIDINE 20 MG TAB PO SCH (08:25)
--- NOTE | 2022-03-28 13:06 | CT Scan Report ---
CT head/brain wo con CLINICAL HISTORY: 56 years-old Male with Re-evaluate for presence of recent CVA. Acute strokelike sy mptoms TECHNIQUE: Multiple axial CT images of the head were obtained without contrast. A dose lowering tech nique was utilized adhering to the principles of ALARA. CT DOSE: 1311.06 mGy.cm COMPARISON: Head CT 03/26/2022 FINDINGS: No acute intracranial hemorrhage, midline shift, intracranial mass, hydrocephalus, territorial ischem ia or abnormal extra-axial collection. White matter hypodensities suggest chronic microvascular ische holley disease. Senescent calcifications of the basal ganglia. The calvarium is intact. Asymmetry of the right frontal parietal scalp soft tissues suggestive of con tusion. The paranasal sinuses, mastoid air cells, and middle ear cavities are clear. IMPRESSION: 1. No acute intracranial abnormality. 2. Right scalp contusion. ACT 112: Negative or not required by law. The above report was generated using voice recognition software. It may contain grammatical, syntax o r spelling errors. Electronically signed by: Christopher Byers M.D. 03/28/2022 1:03 PM
--- NOTE | 2022-03-28 14:58 | Discharge Summary ---
Date of Service March 28, 2022 Admission HPI Per Admitting Provider 56yo male with HTN, CAD/IN in 2000 s/p PCI x2, tricuspid insufficiency, IDDM2, asthma, history of CVA (2008), CKD, GERD, chronic back pain s/p spinal cord stimulator placement (2009, still in-situ but nonfunctional), and MDD presents with chest pain and upper back/neck pain after multiple falls today. Patient reports he became dizzy and fell about 3-4 times today. His episodes of dizziness come on suddenly and last anywhere from a few minutes to a few hours. This has been going on since July and usually happens about once every other day but sometimes occurs multiple times a day. Other than dizziness/vertigo, patient denies prodromal symptoms before these falls, including vision changes. Patient does not remember falling, and when he wakes up on the ground, he is still dizzy. These dizzy spells can occur while in any position including while laying down, and do not seem to be related to exertion. Patient describes his dizziness as lightheadedness and sometimes also has a sensation that the room is spinning. He does not think he feels particularly confused or fatigue upon regaining consciousness. He used to take meclizine for dizziness, which did help, but he ran out a while ago. He thinks he hit his head during at least one of the falls. Patient reports some head, chest, abdomen, and upper back pain as a result of the falls. Patient reports tingling in his hands and feet but notes these symptoms are not new and normally do not interfere with ambulation. Patient received ASA and a few doses of nitro while en route to [facility], which helped his chest pain a bit. Patient denies fever, chills, changes in vision or hearing, nausea, vomiting, or dysuria. Of note, patient is scheduled to undergo tricuspid valve replacement and pacemaker placement scheduled for 04/13/22 at [facility] [place] severe tricuspid regurgitation. As part of the workup prior to his operation, patient had an echo performed at [facility] yesterday (03/26/22) showing normal LV size and systolic function, EF 55-60%, no LVH, mild/mod RV dilation with normal function, mild RA dilation, severe tricuspid regurgitation, and mild/moderate pulmonary regurgitation without stenosis. Admission Exam Per Admitting Provider Constitutional: well-appearing, no acute distress, laying in hospital bed, two retirement guards present at bedside HEENT: NCAT, PERRL, EOMI CV: regular rhythm, holodiastolic murmur appreciated, extremities well-perfused, no LE edema Resp: CTABL, no wheezes/rales/rhonchi appreciated, no increased work of breathing GI: soft, nondistended, mild tenderness to palpation of the epigastrium, BS normoactive MSK: no gross deformities appreciated Neuro: alert, oriented, no focal neurologic deficit appreciated, CN2-12 grossly intact, UE and LE strength 5/5 BL, crehid-bx-lawo test unremarkable Principal Diagnosis Dizziness Falls Discharge Exam Constitutional: Vitals are stable Respiratory: Lung sounds were generally clear bilaterally. Cardiovascular: Heart was RRR without significant murmur, gallops or rubs. Musculoskeletal System: The musculoskeletal system seemed concordant with age. Neurologic Exam: The exam was negative for any focal findings. Deep tendon reflexes were equal and symmetrical. Skin: The skin was negative for jaundice. Extremities: Negative for edema or erythema Discharge Data Allergies Allergy/AdvReac Type Severity Reaction Status Date / Time lisinopril Allergy Severe ANAPHYLAXIS Verified 03/11/22 11:40 ibuprofen Allergy Intermediate HIVES Verified 03/11/22 11:40 morphine Allergy Intermediate HIVES Verified 03/11/22 11:40 capsaicin Allergy Unknown Unknown Verified 03/11/22 11:40 phenytoin Allergy Unknown Unknown Verified 03/11/22 11:40 Consultations 03/27/22 00:40 ED Decision to Admit Stat 03/27/22 08:07 Consult Neurology Routine Ordered Studies 03/26/22 21:49 CT abd pelvis IV con only Urgent CT angio chest PE protocol Urgent CT cervical spine wo con Urgent CT head/brain wo con Urgent CT thoracic spine wo con Urgent 03/28/22 12:22 CT head/brain wo con Routine Hospital Course (1) Falls: Syncope, dizziness Patient with frequent episodes of dizziness and falling, which seems to have all started last July/2021. Differential includes BPPV, seizure, cardiogenic syncope, CVA Patient has had orthostatic VS performed multiple times and has been normal each time Head CT on 03/26 and 03/28 were negative for evidence of CVA. MRI brain contraindicated due to spinal cord stimulator. CT CAP negative as well for acute abnormalities. BPPV supported by persistent dizziness before and after falling, but not suppo rted by loss of consciousness a/w his falling episodes; [place] Hallpike maneuver negative. Seizure supported by lack of awareness during falls, family history, and symptoms after falling, but not supported by long duration of prodromal dizziness Cardiogenic syncope supported by patient's known structural heart disease, recommend follow up with cardiology at [facility]. CVA ruled out with repeat CT imaging of head. Neurology consulted, greatly appreciated their input. Received meclizine 12.5mg PO tid prn dizziness. Patient should continue med following discharge at [facility]. Chest pain Patient has recently undergone extensive cardiac workup, including a normal cath (02/22) and echo (03/26/22) Initial and 2-hour hsTroponin both wnl; EKG with nonspecific T wave abnormalities but no overt ischemic change Suspect CP secondary to falls; further cardiac workup not indicated DM2 HbA1c 7.9% (02/15/22) Patient's home regimen held on admission Continue BSG checks, sliding-scale insulin, hypoglycemic protocol AC on CKD Avoided nephrotoxins, encourage PO intake, trend daily BMP Severe Tricuspid Regurgitation: Scheduled to undergo triscuspid valve repair at [facility] in April/2022. Asthma: continue home inhalers BPH: continue home regimen CAD, HLD: continue home statin HTN: BP well-controlled at this time; continue home regimen History of CVA: patient not on anticoagulation at home; lovenox while in hospital GERD: continue home regimen Gout: continue home regimen MDD: continue home regimen He will be discharged to [facility] today 03/28, as work up for dizziness was negative. Recommend establishing care with Dr. Rivera from [facility] for evaluation along with cardiology at [facility]. (2) Chest pain: (3) CAD (coronary artery disease): (4) Asthma: (5) Depression: (6) Diabetes mellitus: (7) History of CVA (cerebrovascular accident): (8) History of repair of hiatal hernia: (9) Hyperlipidemia: (10) Sarcoidosis: (11) Syncope and collapse: Total Time Total Time Spent Total Time Spent (In Minutes): >30 minutes Discharge Plan Discharge Items [facility] Reason For Visit: FALLS, CHEST PAIN Discharge Diagnosis: Dizziness Falls Activity: As commented below Activity Comment: Please resume activity as tolerated. Non-emergency contact: Primary Care Provider and Psychiatric Aide Call non-emergency contact if: you have any medication questions and your symptoms worsen Follow-up/Referrals: Karina Rivera MD [Physician] - Shasta PEREIRA [Primary Care Provider] - Diet: Carb Consistent or DM2 and Heart Healthy Addtl Attending Provider Instructions: 1. Dizziness - Related to unclear etiology, possibly cardiac. - Head CT scans were negative during this admission for acute stroke. - MRI cannot be obtained due to spinal stimulator. - Recommend following up with university professor at [facility] to discuss dizziness. - Continue Meclizine 12.5 mg every 6 hours for dizziness/vertigo. - We highly recommend ENT follow up to evaluate for etiology of dizziness. 2. Severe tricuspid regurgitation - You are scheduled for tricuspid valve repair at [facility] in April/2022. Pending Studies at Discharge: No Skilled Items Patient informed of condition?: Yes DNR: No Discharge Level of Care: Other Communicable Disease: No Discharge Prognosis: Stable Lines: None Urinary Catheter: No Medications and DC Order Prescriptions: Continued valsartan 80 mg Tablet 80 mg PO QAM RF: 0 calcium carbonate-vitamin D3 600 mg(1,500mg) -200 unit Tablet 2 tab PO BID RF: 0 allopurinol 100 mg Tablet 100 mg PO QAM RF: 0 aspirin 81 mg Tablet,Delayed Release (Dr/Ec) 81 mg PO QAM RF: 0 finasteride 5 mg Tablet 5 mg PO QAM RF: 0 rosuvastatin 20 mg Tablet 20 mg PO HS RF: 0 Alvesco 160 mcg/actuation Hfa Aerosol Inhaler 1 puff INHALATION BID RF: 0 docusate sodium 100 mg Capsule 200 mg PO BID RF: 0 polyethylene glycol 3350 [Miralax] 17 gram Powder In Packet 17 g PO DAILY Qty: 1 RF: 0 meclizine 12.5 mg Tablet 12.5 mg PO TID PRN (Reason: vertigo/dizziness) Qty: 30 RF: 0 famotidine 20 mg Tablet 20 mg PO BID Qty: 60 RF: 0 pantoprazole [Protonix] 40 mg tablet,delayed release (DR/EC) 40 mg PO BID Qty: 60 RF: 0 Acid Gone Antacid 95-358 mg/15 mL Suspension 30 ml PO PCHS PRN (Reason: Heartburn) RF: 0 insulin glargine 100 unit/mL Solution 11 unit SUBCUT DAILY RF: 0 pantoprazole 40 mg Tablet,Delayed Release (Dr/Ec) 40 mg PO DAILY RF: 0 albuterol sulfate 90 mcg/actuation Hfa Aerosol Inhaler 2 puff INHALATION QID PRN (Reason: Shortness Of Breath) RF: 0 prazosin 2 mg Capsule 2 mg PO HS RF: 0 duloxetine 60 mg Capsule,Delayed Release(Dr/Ec) 60 mg PO BID RF: 0 aripiprazole [Abilify] 2 mg Tablet 2 mg PO DAILY RF: 0 tamsulosin 0.4 mg capsule 0.8 mg PO HS RF: 0 amlodipine 5 mg Tablet 5 mg PO DAILY RF: 0 metoprolol tartrate 25 mg Tablet 12.5 mg PO BID RF: 0 Novolin R Regular U-100 Insuln 100 unit/mL Solution 1 sliding scale dose SUBCUT USEASDIRECTD RF: 0 Admission Data Admit Date/Time: 03/27/22 02:23 Attending Provider: Jeremy Choi Admit Provider: Matt Warren Primary Care Provider: Shasta PEREIRA Other Providers: Emile Tomlinson ; Kane Vieira Other Interventions: Discharge Summary Assessment (RN) Last Done: 03/28/22 13:47 Coding Level of Care Code Established Pt OBSERV/HOSP SAME DATE LVL 2 Patient Type Established Diagnoses Falls W19.XXXA Encounter type: initial encounter Chest pain R07.9 Chest pain type: unspecified CAD (coronary artery disease) I25.10 Asthma J45.909 Depression F32.9 Diabetes mellitus E11.9 History of CVA (cerebrovascular accident) Z86.73 History of repair of hiatal hernia Z98.890; Z87.19 Hyperlipidemia E78.5 Sarcoidosis D86.9 Syncope and collapse R55
--- NOTE | 2022-03-29 19:28 | Electrocardiogram Report ---
Test Reason : Blood Pressure : / mmHG Vent. Rate : 068 BPM Atrial Rate : 068 BPM P-R Int : 148 ms QRS Dur : 110 ms QT Int : 428 ms P-R-T Axes : 053 005 025 degrees QTc Int : 455 ms Poor data quality, interpretation may be adversely affected Normal sinus rhythm Nonspecific T wave abnormality Abnormal ECG When compared with ECG of 26-MAR-2022 22:12, No significant change Confirmed by Abhishek Caro ([id number]) on 03/29/2022 7:28:14 PM Referred By: REFERRED SELF Confirmed By:Abhishek Caro
== END 2022-03-28 15:05 ==
LOC: EDINP 21:44 → ED 21:44 → SUATTDRO 03-27 02:23 → 2W 03-27 12:30

== ENCOUNTER 2022-05-01 11:38 | Inpatient (IN) ==
[2022-05-01] MEDS ORDERED: SODIUM CHLORIDE 0.9% 500 ML IV SCH (12:15)
--- NOTE | 2022-05-01 12:19 | Emergency Department Note ---
History of Present Illness General Chief complaint: Fall Stated complaint: SYNCOPE, FALL, HEAD & NECK PAIN Time Seen by Provider: 05/01/22 11:59 History of Present Illness Maximum Pain Intensity: 8 56-year-old male presents to the ED with a chief complaint of a possible syncopal episode and a fall. The patient is chronically on Coumadin. He had a tricuspid valve replaced and a pacemaker placed earlier this month at [facility]. The patient reportedly was in his cell today when he had a syncopal episode. He complains of some posterior neck and head pain. Denies any other complaints at this time. Home Medications Medication Instructions Recorded Confirmed Type allopurinol 100 mg tablet 100 mg PO QAM 09/23/20 03/11/22 History aspirin 81 mg tablet,delayed 81 mg PO QAM 09/23/20 03/11/22 History release calcium carbonate 600 mg-vitamin 2 tab PO BID 09/23/20 03/11/22 History D3 5 mcg (200 unit) tablet finasteride 5 mg tablet 5 mg PO QAM 09/23/20 03/11/22 History rosuvastatin 20 mg tablet 20 mg PO HS 09/23/20 03/11/22 History valsartan 80 mg tablet 80 mg PO QAM 09/23/20 03/11/22 History ciclesonide 160 mcg/actuation 1 puff inhalation BID 07/21/21 03/11/22 History aerosol inhaler (Alvesco) docusate sodium 100 mg capsule 200 mg PO BID 07/21/21 03/11/22 History meclizine 12.5 mg tablet 12.5 mg PO TID PRN 07/24/21 03/11/22 Rx vertigo/dizziness #30 tabs polyethylene glycol 3350 17 gram 17 g PO DAILY #1 btl 07/24/21 03/11/22 Rx oral powder packet (Miralax) albuterol sulfate 90 mcg/actuation 2 puff inhalation QID PRN 02/06/22 03/11/22 History aerosol inhaler Shortness Of Breath aluminum hydrox-magnesium carb 95 30 ml PO PCHS PRN Heartburn 02/06/22 03/11/22 History mg-358 mg/15 mL oral suspension (Acid Gone Antacid) amlodipine 5 mg tablet 5 mg PO DAILY 02/06/22 03/11/22 History aripiprazole 2 mg tablet (Abilify) 2 mg PO DAILY 02/06/22 03/11/22 History duloxetine 60 mg capsule,delayed 60 mg PO BID 02/06/22 03/11/22 History release insulin glargine 100 unit/mL 11 unit subcut DAILY 02/06/22 03/11/22 History subcutaneous solution insulin regular human 100 unit/mL 1 sliding scale dose subcut 02/06/22 03/11/22 History injection solution (Novolin R USEASDIRECTD Regular U-100 Insulin) metoprolol tartrate 25 mg tablet 12.5 mg PO BID 02/06/22 03/11/22 History pantoprazole 40 mg tablet,delayed 40 mg PO DAILY 02/06/22 03/11/22 History release prazosin 2 mg capsule 2 mg PO HS 02/06/22 03/11/22 History tamsulosin 0.4 mg capsule 0.8 mg PO HS 02/06/22 03/11/22 History famotidine 20 mg tablet 20 mg PO BID #60 tabs 02/25/22 03/11/22 Rx pantoprazole 40 mg tablet,delayed 40 mg PO BID #60 tabs 02/25/22 03/11/22 Rx release (Protonix) Allergies Allergy/AdvReac Type Severity Reaction Status Date / Time lisinopril Allergy Severe ANAPHYLAXIS Verified 03/11/22 11:40 ibuprofen Allergy Intermediate HIVES Verified 03/11/22 11:40 morphine Allergy Intermediate HIVES Verified 03/11/22 11:40 capsaicin Allergy Unknown Unknown Verified 03/11/22 11:40 phenytoin Allergy Unknown Unknown Verified 03/11/22 11:40 Past Med/Surg History Medical History Angina pectoris Asthma Atypical chest pain Bowel obstruction CAD (coronary artery disease) Chest pain Depression DM type 2 (diabetes mellitus, type 2) Gout Head injury History of CVA (cerebrovascular accident) Hx SBO Hyperlipidemia Hypertension Iron deficiency anemia Peptic ulcer disease Pulmonary hypertension Sarcoidosis Skin cancer Syncope Tricuspid regurgitation Surgical History H/O exploratory laparotomy "05/31/2015 with lysis of adhesions, release of bowel obstruction, repair of incisional hernia" H/O ventral hernia repair History of back surgery History of repair of hiatal hernia (02/19/22) Laparoscopic Repair of Hiatal Hernia; partial gastric fundoplication; posterior gastropexy(Not Applicable) - Luke De La Fuente DO S/P cardiac cath S/P coronary artery stent placement (05/07/13) "2000" Family History Mother , age 67 Lung cancer Father , age 68 Lung cancer Brother Stroke age 55 Social History Smoking Status: Never smoker Hx Alcohol Use: No Hx Substance Use: No Preferred Language: Bermudian Communication Ability: Effective Visual Impairment: No Limitations Recreation Programmer Required: No Beliefs That Will Affect Care: None Current Living Situation: Other Current Living Situation Comment: fdc - [facility] Feels Safe at Home: Yes Assistive Devices: None Review of Systems A total of 10 systems reviewed and were otherwise negative Physical Exam Vital Signs Vital Signs - 24 hr 05/01/22 12:05 05/01/22 11:50 05/01/22 13:07 Temperature 37.1 C Temperature Source Oral Pulse Rate 86 89 Pulse Rate from SpO2 Sensor 89 Respiratory Rate 17 19 Respiratory Effort / Characteristics Non-Labored Respiratory Depth Normal Respiratory Pattern Regular Blood Pressure 121/87 119/80 Blood Pressure Mean 98 93 Blood Pressure Position Lying Pulse Oximetry 97 98 Oxygen Delivery Method Room Air Room Air Sepsis Recent Fever Within 48 Hours No Sepsis New/Unexplained Change in Mental Status N/A Sepsis Action Taken by Nursing No Action Required CONSTITUTIONAL/VITAL SIGNS: Reviewed / noted above. GENERAL: Non-toxic in appearance. INTEGUMENTARY: Warm, dry, and [place]. HEAD: Normocephalic. No obvious head trauma. EYES: without scleral icterus or trauma. ENT/OROPHARYNX: clear and moist. LYMPHADENOPATHY/NECK: Is supple without lymphadenopathy or meningismus. RESPIRATORY: Clear to auscultation bilaterally. No increased work of breathing. CARDIOVASCULAR: Regular rate and rhythm. GI/ABDOMEN: Soft and nontender. No organomegaly or pulsatile mass. EXTREMITIES: Warm and well perfused. BACK: No CVA tenderness. There is some tenderness to palpation of the cervical spine. NEUROLOGICAL: Intact without focal deficits. PSYCHIATRIC: normal affect. MUSCULOSKELETAL: Normally developed with good muscle tone. TRIAGE NURSING DOCUMENTATION REVIEWED. Course Administered Medications Discontinued Medications Sodium Chloride (Nss) 500 mls @ 999 mls/hr IV .Q31M LIN Stop: 05/01/22 12:45 Last Infusion: 05/01/22 14:01 Dose: 0 mls/hr Documented By: Admin: 05/01/22 13:07 Dose: 999 mls/hr Documented By: SETH Medical Decision Making Differential Diagnosis Differential includes acute cardiac dysrhythmia, microinfarction, CVA, TIA, dehydration, anemia, electrolyte disturbance, seizure, trauma, intracranial bleeding, acute vascular catastrophe, thoracic aortic dissection, PE, abdominal aortic aneurysm rupture, close head injury, intracranial bleed, facial trauma, cervical spine trauma, chest and thoracic trauma, abdominal and intra-abdominal trauma, spine neurologic trauma, extremity trauma. Medical Records Attestation: I reviewed the patient's medical records. Home Medications Current Medication List: was personally reviewed by me Laboratory Data Attestation: I reviewed the patient's lab results. Result diagrams: 05/01/22 13:05 05/01/22 13:05 Lab Results 05/01/22 05/01/22 05/01/22 Range/Units 13:05 13:05 13:05 WBC 4.88 (4.8-10.8) K/ul RBC 4.09 L (4.63-6.08) M/uL Hgb 11.2 L (14.0-18.0) g/dl Hct 34.3 L (40.1-51.0) % MCV 83.9 (80.0-100.0) fL MCH 27.4 (25.0-34.0) pg MCHC 32.7 (32.0-36.0) g/dL RDW Std Deviation 45.0 (36.4-46.3) fL RDW Coeff of Eliana 14.6 H (11.5-14.5) % Plt Count 391 (130-400) K/uL MPV 9.5 (9.4-12.4) fL Immature Gran % (Auto) 0.6 % Neut % (Auto) 68.0 % Lymph % (Auto) 18.9 % Hitchcock % (Auto) 8.2 % Eos % (Auto) 3.3 % Baso % (Auto) 1.0 % Neut # (Auto) 3.32 (1.4-6.5) K/uL Lymph # (Auto) 0.92 L (1.2-3.4) K/uL Hitchcock # (Auto) 0.40 (0.24-0.82) K/uL Eos # (Auto) 0.16 (0-0.50) K/uL Baso # (Auto) 0.05 (0-0.2) K/uL Immature Gran # (Auto) 0.03 H (0.00-0.02) K/uL PT 33.8 H (9.0-12.0) Seconds INR 3.4 H (0.9-1.1) Sodium TNP Potassium TNP Chloride 100 (98-107) mmol/L Carbon Dioxide 26 (21-32) mmol/L Anion Gap TNP BUN 23 (6-23) mg/dl Creatinine 1.32 (0.6-1.4) mg/dl Est Cr Clr Drug Dosing 61.0 ml/min Est GFR ( Amer) 68.4 ml/min Est GFR (Non-Af Amer) 59.0 ml/min BUN/Creatinine Ratio 17.4 (10-20) Glucose 106 H (70-99(Fasting)) mg/dl Calcium 10.2 H (8.5-10.1) mg/dl Total Bilirubin 0.5 (0.2-1.0) mg/dl AST TNP ALT 31 (7-52) U/L Alkaline Phosphatase 139 H (34-104) U/L Troponin I High Sens 100.1 H* D (0-20) pg/ml Total Protein 8.5 H (6.0-8.3) gm/dl Albumin 4.4 (3.4-5.0) gm/dl Globulin 4.1 H (2.5-4.0) gm/dl Albumin/Globulin Ratio 1.1 (0.9-2) Imaging Data Radiologist's Impression: Cervical Spine CT 05/01/22 12:[address] DOSE: 1178.76 mGy.cm HISTORY: Neck pain, fall TECHNIQUE: Multiaxial CT images of the cervical spine were performed and reformatted in the sagittal and coronal plane without the use of contrast. A dose lowering technique was utilized adhering to the principles of ALARA. COMPARISON: Cervical spine CT 03/26/2022. FINDINGS: No fractures. No subluxation. Prevertebral soft tissues and the C1-C2 interval are intact. No pneumothorax. [id number] degenerative changes again noted within the lower cervical spine. IMPRESSION: No fractures within the cervical spine. ACT 112: Negative or not required by law. Electronically signed by: Ortega Munoz M.D. 05/01/2022 1:[address] 05/01/22 12:08 CT OF THE HEAD WITHOUT CONTRAST CLINICAL HISTORY: pain, fall COMPARISON STUDY: Head CT March 28, 2022. TECHNIQUE: Helical axial images of the head were obtained without IV contrast. Automated exposure control was utilized for the study. A dose lowering technique was utilized adhering to the principles of ALARA. FINDINGS: No acute intracranial hemorrhage, midline shift or mass effect is present. Mild white matter hypodensities favor small vessel disease and are un changed. There is minimal bilateral basal ganglia calcification. The ventricular system is unremarkable. The basal cisterns are patent. No extra-axial collections are present. There are no findings to suggest acute dural sinus thrombosis or acute territorial infarct. No significant calvarial abnormalities are present. Visualized portions of the sinuses and mastoid air cells are clear. IMPRESSION: 1. No acute intracranial findings. No change in appearance of the brain. 2. No acute calvarial fracture. ACT 112: Negative or not required by law. Electronically signed by: Ferny England M.D. 05/01/2022 1:02 PM Chest X-Ray 05/01/22 12:09 XR chest 1V portable CLINICAL HISTORY: syncope COMPARISON STUDY: Chest radiograph February 24, 2022. Chest CT March 26, 2022. FINDINGS: A pacer device is noted. There are median sternotomy wires. Intracanalicular electrodes are noted. Lung volumes are diminished. This is unchanged. No pneumothorax or pleural effusion is noted. Minimal left basilar opacity favors atelectasis. No consolidation to suggest pneumonia. No evidence for pulmonary edema. IMPRESSION: No acute cardiopulmonary findings. Low lung volumes. ACT 112: Negative or not required by law. Electronically signed by: Ferny England M.D. 05/01/2022 12:55 PM ECG Data Attestation: I personally reviewed and interpreted this ECG as follows: Additional Comments: Twelve-lead EKG: Per my interpretation shows a paced ventricular rhythm at a rate of 80. MDM Narrative 56-year-old male presents with a syncopal episode with neck pain and some head pain chronically on Coumadin. As twelve-lead EKG shows a paced ventricular rhythm at a rate of 80. CT scan of the head and cervical spine did not show acute traumatic injury. Chest x-ray was negative for acute disease. CBC and chemistry panel was unremarkable. INR is 3.4. He is on chronic Coumadin therapy. Troponin was elevated at 100. Impression & Plan Syncope, Elevated troponin, Acute neck pain Discharge Plan Visit Data Chief Complaint: Fall Stated Complaint: SYNCOPE, FALL, HEAD & NECK PAIN ED Provider: Axel Oreilly Discharge Problem: Syncope, Elevated troponin, Acute neck pain Patient Disposition: Being Evaluated by Hospitalist Forms Stand Alone Forms: [facility] Prescriptions Prescriptions: No Action valsartan 80 mg Tablet 80 mg PO QAM calcium carbonate-vitamin D3 600 mg(1,500mg) -200 unit Tablet 2 tab PO BID allopurinol 100 mg Tablet 100 mg PO QAM aspirin 81 mg Tablet,Delayed Release (Dr/Ec) 81 mg PO QAM finasteride 5 mg Tablet 5 mg PO QAM rosuvastatin 20 mg Tablet 20 mg PO HS Alvesco 160 mcg/actuation Hfa Aerosol Inhaler 1 puff INHALATION BID docusate sodium 100 mg Capsule 200 mg PO BID polyethylene glycol 3350 [Miralax] 17 gram Powder In Packet 17 g PO DAILY Qty: 1 0RF meclizine 12.5 mg Tablet 12.5 mg PO TID PRN (Reason: vertigo/dizziness) Qty: 30 0RF famotidine 20 mg Tablet 20 mg PO BID Qty: 60 0RF pantoprazole [Protonix] 40 mg tablet,delayed release (DR/EC) 40 mg PO BID Qty: 60 0RF Acid Gone Antacid 95-358 mg/15 mL Suspension 30 ml PO PCHS PRN (Reason: Heartburn) insulin glargine 100 unit/mL Solution 11 unit SUBCUT DAILY Rx Instructions: ON HOLD 02/13/22 FOR CARDIAC CATH. pantoprazole 40 mg Tablet,Delayed Release (Dr/Ec) 40 mg PO DAILY albuterol sulfate 90 mcg/actuation Hfa Aerosol Inhaler 2 puff INHALATION QID PRN (Reason: Shortness Of Breath) prazosin 2 mg Capsule 2 mg PO HS duloxetine 60 mg Capsule,Delayed Release(Dr/Ec) 60 mg PO BID aripiprazole [Abilify] 2 mg Tablet 2 mg PO DAILY tamsulosin 0.4 mg capsule 0.8 mg PO HS amlodipine 5 mg Tablet 5 mg PO DAILY metoprolol tartrate 25 mg Tablet 12.5 mg PO BID Novolin R Regular U-100 Insuln 100 unit/mL Solution 1 sliding scale dose SUBCUT USEASDIRECTD Rx Instructions: BSG 150-200=2 UNITS, BSG 201-250=4 UNITS, BSG 251-300=6 UNITS, BSG 301-350=8 UNITS, BSG 351-400=10 UNITS, BSG 401-450=12 UNITS, BSG >450= CALL MD. Referrals Referrals: Shasta PEREIRA [Primary Care Provider] -
--- NOTE | 2022-05-01 12:57 | XRay Report ---
XR chest 1V portable CLINICAL HISTORY: syncope COMPARISON STUDY: Chest radiograph February 24, 2022. Chest CT March 26, 2022. FINDINGS: A pacer device is noted. There are median sternotomy wires. Intracanalicular electrodes are noted. Lung volumes are diminished. This is unchanged. No pneumothorax or pleural effusion is noted. Minimal left basilar opacity favors atelectasis. No consolidation to suggest pneumonia. No evidence for pulmonary edema. IMPRESSION: No acute cardiopulmonary findings. Low lung volumes. ACT 112: Negative or not required by law. Electronically signed by: Ferny England M.D. 05/01/2022 12:55 PM
--- NOTE | 2022-05-01 13:03 | CT Scan Report ---
CT OF THE HEAD WITHOUT CONTRAST CLINICAL HISTORY: pain, fall COMPARISON STUDY: Head CT March 28, 2022. TECHNIQUE: Helical axial images of the head were obtained without IV contrast. Automated exposure con trol was utilized for the study. A dose lowering technique was utilized adhering to the principles o f ALARA. FINDINGS: No acute intracranial hemorrhage, midline shift or mass effect is present. Mild white matte r hypodensities favor small vessel disease and are unchanged. There is minimal bilateral basal gangli a calcification. The ventricular system is unremarkable. The basal cisterns are patent. No extra-axia l collections are present. There are no findings to suggest acute dural sinus thrombosis or acute ter ritorial infarct. No significant calvarial abnormalities are present. Visualized portions of the sinu ses and mastoid air cells are clear. IMPRESSION: 1. No acute intracranial findings. No change in appearance of the brain. 2. No acute calvarial fracture. ACT 112: Negative or not required by law. Electronically signed by: Ferny England M.D. 05/01/2022 1:02 PM
[2022-05-01 13:26] LABS: Basophils # (auto) 0.05 K/uL (0-0.2); Eosinophils # (auto) 0.16 K/uL (0-0.50); Eosinophils % (auto) 3.3 %; Hematocrit (blood only) 34.3 % (40.1-51.0); Hemoglobin 11.2 g/dl (14.0-18.0); Immature Granulocytes # (auto) 0.03 K/uL (0.00-0.02); Immature Granulocytes % (auto) 0.6 %; Lymphocytes # (auto) 0.92 K/uL (1.2-3.4); Lymphocytes % (auto) 18.9 %; Mean Corpuscular Hemoglobin 27.4 pg (25.0-34.0); Mean Corpuscular Hgb Conc 32.7 g/dL (32.0-36.0); Mean Corpuscular Volume 83.9 fL (80.0-100.0); Mean Platelet Volume 9.5 fL (9.4-12.4); Monocytes % (auto) 8.2 %; Neutrophils # (auto) 3.32 K/uL (1.4-6.5); Platelet Count 391 K/uL (130-400); RDW Coefficient of Variation 14.6 % (11.5-14.5); Red Blood Count 4.09 M/uL (4.63-6.08); White Blood Count 4.88 K/ul (4.8-10.8)
--- NOTE | 2022-05-01 13:29 | CT Scan Report ---
CERVICAL SPINE CT CT DOSE: 1178.76 mGy.cm HISTORY: Neck pain, fall TECHNIQUE: Multiaxial CT images of the cervical spine were performed and reformatted in the sagittal and coronal plane without the use of contrast. A dose lowering technique was utilized adhering to th e principles of ALARA. COMPARISON: Cervical spine CT 03/26/2022. FINDINGS: No fractures. No subluxation. Prevertebral soft tissues and the C1-C2 interval are intact. No pneumothorax. [id number] degenerative changes again noted within the lower cervical spine. IMPRESSION: No fractures within the cervical spine. ACT 112: Negative or not required by law. Electronically signed by: Ortega Munoz M.D. 05/01/2022 1:28 PM
[2022-05-01 13:31] LABS: INR 3.4 (0.9-1.1); Prothrombin Time 33.8 Seconds (9.0-12.0)
[2022-05-01 13:51] LABS: Alanine Aminotransferase 31 U/L (7-52); Albumin Globulin Ratio 1.1 (0.9-2); Albumin Level 4.4 gm/dl (3.4-5.0); Alkaline Phosphatase 139 U/L (34-104); BUN Creatinine Ratio 17.4 (10-20); Bilirubin,Total 0.5 mg/dl (0.2-1.0); Blood Urea Nitrogen 23 mg/dl (6-23); Calcium 10.2 mg/dl (8.5-10.1); Carbon Dioxide 26 mmol/L (21-32); Chloride 100 mmol/L (98-107); Est GFR (African American) 68.4 ml/min; Globulin 4.1 gm/dl (2.5-4.0); Glucose 106 mg/dl (70-99(Fasting)); Total Protein 8.5 gm/dl (6.0-8.3); Troponin I High Sensitivity 100.1 pg/ml (0-20)
--- NOTE | 2022-05-01 14:49 | History & Physical Report ---
Date of Service May 01, 2022 Assessment & Plan (1) Syncope and collapse: Plan: Patient with syncope and collapse this morning. With chronic vertiginousness symptoms. Possibly exacerbated by current volume status with diarrhea and multiple medications effecting BP and alpha blockers - Interrogated pacemaker see below- no AF/AT VT/VF episodes - check random cortisol - LR for one liter - hold blood pressure medications today - discontinue prazosin - no other focal deficits and without loss of bowel or bladder and without confusion following - Clarify device model and leads for possible MRI - ENT evaluation still has not occurred - continue meclizine - neurological checks q4 hours- any change repeat non-con head CT for evaluation of DASH His Random Cortisol returned at 7.99- will send AM cortisol as well- if remains low could stim anytime in morning or consider adding mineral or gluco corticoid therapy. (2) Chest pain: Plan: Upon recheck of Patient at 1700 patient endorses chest pain at the center of his chest that started approx 40 minutes ago. nonr-reproducible and non-radiating - Patient was sleeping when went in room - Nitroglycerine give SL and will place nitro-paste on overnight continue to trend - Repeat ECG - Patient previous stays which prompted his previous cath also note chest pain throughout hospitalization as well as cath procedure - ECHO as above (3) Elevated troponin: Plan: HScTNI 100 without chest pain cath in 02/22- with mild LAD in stent stenosis - continue to trend - ECHO - Cardiology consulted- with above LAD disease (4) Elevated INR: Plan: INR elevated 3.4 on warfarin following his tricuspid valve replacement at [facility] - Goal 1.5-2.0 reported - Hold warfarin dose tonight restart when closer to 2.0 (5) CAD (coronary artery disease): Plan: As above - continue asa - continue statin (6) Diabetes mellitus: Plan: Continue basal bolus insulin goal <180 mg/dl (7) BPH w urinary obs/LUTS: Plan: Continue flomax hold prazosin- recommend discontinuation of this (8) GERD (gastroesophageal reflux disease): Plan: GERD with esophagitis - continue H2 and PPI (9) Pacemaker: Plan: Pacemaker is [employer] [place] XT DR ESTES [id number] SERIAL number [id number] - LEADS 4968 capsure EPI - MR conditional - NO - DDD with mode switch at 171 - low rate 90 upper track 120 - AT/AF >170 - VT >150 This was inserted following biatrial MAZE and clipping of left atrial appendage (10) Tricuspid valve replaced: Plan: Done at [facility] with his pacemaker placement- bioprosthesis - On Warfarin as above - goal reported 1.5-2.0 verify. History of Present Illness Primary Care Provider: RANDALL Vegas 56 YOM with medical history of: CVA, Tardive dyskinesia, DMII, CKD III, frequent syncopal episodes, Depression, hiatal hernia repair, anemia, elevated troponin level, CAD (Mi 2000 LAD stent s/p cath 02/22), Esophagitis. Patient is s/p pacemaker implantation at [facility] as well as s/p hiatal hernia repair in February 22. Patient comes to the EMD today for syncopal episode at the senior living. Patient states he got up to go to medical and when he reached the front of his cell he got dizzy, flush feeling, and room was spinning and he fell. He reports hitting his head. He remembers waking up where he fell and reports not being confused or loss of bowel or bladder. The patient has had previous episodes of syncope episodes some related with confusion afterwards as well. He has been evaluated by cardiology and neurology. He endorses frequent episodes of dizziness with room spinning daily and more so when getting up from sitting or lying down. He is on Meclizine as outpatient but unsure how or when he is taking this. He also remains on 2 alpha blockers for his BPH. He also endorses increase in diarrhea over the past few weeks with episodes of incontinence cause he can't get to the bathroom fast enough. This occurs about 15-20 minutes after eating. Is not associated with any blood, mucous, or abdominal pain. He also endorses loss of appetitie as well as not drinking much water or replacing fluid following his 3- 4 loose stools per day. Patient will be observed on telemetry overnight. Will check cortisol level, stop his prazosin, interrogate his Pacemaker. An attempt was made to get inner ear MRI on last admission, but difficulty was had verifying his pacemaker and MRI compatibility. Head CT scan negative for acute process, Cervical spine cleared radiographically. COVID test on admission is: NEGATIVE Allergies Allergy/AdvReac Type Severity Reaction Status Date / Time lisinopril Allergy Severe ANAPHYLAXIS Verified 05/01/22 15:05 ibuprofen Allergy Intermediate HIVES Verified 05/01/22 15:05 morphine Allergy Intermediate HIVES Verified 05/01/22 15:05 capsaicin Allergy Unknown Unknown Verified 05/01/22 15:05 phenytoin Allergy Unknown Unknown Verified 05/01/22 15:05 Home Medications Medication Instructions Recorded Confirmed Type aspirin 81 mg tablet,delayed 81 mg PO QAM 09/23/20 05/01/22 History release calcium carbonate 600 mg-vitamin 2 tab PO BID 09/23/20 05/01/22 History D3 5 mcg (200 unit) tablet rosuvastatin 20 mg tablet 20 mg PO QPM 09/23/20 05/01/22 History ciclesonide 160 mcg/actuation 1 puff inhalation BID 07/21/21 05/01/22 History aerosol inhaler (Alvesco) docusate sodium 100 mg capsule 200 mg PO BID 07/21/21 05/01/22 History polyethylene glycol 3350 17 gram 17 g PO DAILY #1 btl 07/24/21 05/01/22 Rx oral powder packet (Miralax) albuterol sulfate 90 mcg/actuation 2 puff inhalation QID PRN 02/06/22 05/01/22 History aerosol inhaler Shortness Of Breath aripiprazole 2 mg tablet (Abilify) 2 mg PO DAILY 02/06/22 05/01/22 History duloxetine 60 mg capsule,delayed 60 mg PO BID 02/06/22 05/01/22 History release insulin glargine 100 unit/mL 11 unit subcut DAILY 02/06/22 05/01/22 History subcutaneous solution insulin regular human 100 unit/mL 1 sliding scale dose subcut 02/06/22 05/01/22 History injection solution (Novolin R USEASDIRECTD PRN DEPENDING ON BSG'S Regular U-100 Insulin) tamsulosin 0.4 mg capsule 0.8 mg PO QPM 02/06/22 05/01/22 History famotidine 20 mg tablet 20 mg PO BID #60 tabs 02/25/22 05/01/22 Rx acetaminophen 325 mg tablet 650 mg PO QID 05/01/22 05/01/22 History (Tylenol) furosemide 40 mg tablet (Lasix) 40 mg PO DAILY 05/01/22 05/01/22 History potassium chloride 20 mEq 20 meq PO BID 05/01/22 05/01/22 History tablet,extended release warfarin 2 mg tablet 2 mg PO HS 05/01/22 05/01/22 History warfarin 2.5 mg tablet 2.5 mg PO HS 05/01/22 05/01/22 History Past Med/Surg History Medical History Angina pectoris Asthma Atypical chest pain Bowel obstruction CAD (coronary artery disease) Chest pain Depression DM type 2 (diabetes mellitus, type 2) Gout Head injury History of CVA (cerebrovascular accident) Hx SBO Hyperlipidemia Hypertension Iron deficiency anemia Peptic ulcer disease Pulmonary hypertension Sarcoidosis Skin cancer Syncope Tricuspid regurgitation Surgical History H/O exploratory laparotomy "05/31/2015 with lysis of adhesions, release of bowel obstruction, repair of incisional hernia" H/O ventral hernia repair History of back surgery History of repair of hiatal hernia (02/19/22) Laparoscopic Repair of Hiatal Hernia; partial gastric fundoplication; posterior gastropexy(Not Applicable) - Luke De La Fuente, S/P cardiac cath S/P coronary artery stent placement (05/07/13) "2000" Family History Mother , age 67 Lung cancer Father , age 68 Lung cancer Brother Stroke age 55 Social History Smoking Status: Never smoker Hx Alcohol Use: No Hx Substance Use: No Preferred Language: Malaysian Communication Ability: Effective Visual Impairment: No Limitations Benefits Specialist Recruiter Required: No Beliefs That Will Affect Care: None Current Living Situation: Other Current Living Situation Comment: senior living - [facility] Feels Safe at Home: Yes Assistive Devices: None Review of Systems Review of Systems: REVIEW OF SYSTEMS: Constitutional: (+) dizziness, No fever, sweats or chills Eyes: No diplopia, no worsening or blurred vision ENT: normal hearing, no trouble swallowing Respiratory: No cough, sputum, dyspnea at rest or on exertion Cardiovascular: No chest pain, tightness or palpitations Abdomen: (+) diarrhea following eating, No pain, nausea, vomiting, constipation Musculoskeletal: No joint pain, calf pain, swelling Neurologic: No weakness, numbness/tingling, or balance problems Psychiatric: (+) depression, ticks Skin: No rash or itch Physical Exam Physical Exam: PHYSICAL EXAM: General: awake, alert, fatigued appearing Head: Normocephalic, headache, no hematoma ENT: PERRLA, EOMI, no pharyngeal exudate, mucous membranes dry Neuro: AAO x 3, speech clear and appropriate, strength intact bilaterally 5/5, sensation intact and equal all extremities and dermatomes, no pronator drift Chest: equal rise and fall of the chest, no accessory muscle use, no heaves or thrills, Clear to auscultation, on room air, Cardiac: Regular rate and rhythm, telemetry reviewed- av paced, skin warm dry, cap refill <3 seconds, peripheral pulses +2 no JVD, no murmur, no edema GI: NABS x 4 quadrants, soft, nontender to palpation, no rebound, guarding or tenderness : Spontaneously voiding, no pain, no CVA tenderness, Extremities: Normal inspection, no peripheral edema or erythema, calfs nontender to palpation Psych:with ticks of eye and lips/tongue likely TD Skin: no rash or erythema Results & Data Results & Data ([facility]) Vital Signs (Past 12 Hours) Vital Signs Temp Pulse Resp BP Pulse Ox O2 Del Method 05/01/22 13:07 89 19 119/80 98 05/01/22 11:50 Room Air 05/01/22 12:05 37.1 C 86 17 121/87 97 Room Air Laboratory Results Abnormal lab results 05/01/22 05/01/22 05/01/22 Range/Units 13:05 13:05 13:05 RBC 4.09 L (4.63-6.08) M/uL Hgb 11.2 L (14.0-18.0) g/dl Hct 34.3 L (40.1-51.0) % RDW Coeff of Eliana 14.6 H (11.5-14.5) % Lymph # (Auto) 0.92 L (1.2-3.4) K/uL Immature Gran # (Auto) 0.03 H (0.00-0.02) K/uL PT 33.8 H (9.0-12.0) Seconds INR 3.4 H (0.9-1.1) Glucose 106 H (70-99(Fasting)) mg/dl Calcium 10.2 H (8.5-10.1) mg/dl Alkaline Phosphatase 139 H (34-104) U/L Troponin I High Sens 100.1 H* D (0-20) pg/ml Total Protein 8.5 H (6.0-8.3) gm/dl Globulin 4.1 H (2.5-4.0) gm/dl Diagnostic Findings Cervical Spine CT 05/01/22 12:[address] DOSE: 1178.76 mGy.cm HISTORY: Neck pain, fall TECHNIQUE: Multiaxial CT images of the cervical spine were performed and reformatted in the sagittal and coronal plane without the use of contrast. A dose lowering technique was utilized adhering to the principles of ALARA. COMPARISON: Cervical spine CT 03/26/2022. FINDINGS: No fractures. No subluxation. Prevertebral soft tissues and the C1-C2 interval are intact. No pneumothorax. [id number] degenerative changes again noted within the lower cervical spine. IMPRESSION: No fractures within the cervical spine. ACT 112: Negative or not required by law. Electronically signed by: Ortega Munoz M.D. 05/01/2022 1:[address] 05/01/22 12:08 CT OF THE HEAD WITHOUT CONTRAST CLINICAL HISTORY: pain, fall COMPARISON STUDY: Head CT March 28, 2022. TECHNIQUE: Helical axial images of the head were obtained without IV contrast. Automated exposure control was utilized for the study. A dose lowering technique was utilized adhering to the principles of ALARA. FINDINGS: No acute intracranial hemorrhage, midline shift or mass effect is present. Mild white matter hypodensities favor small vessel disease and are unchanged. There is minimal bilateral basal ganglia calcification. The ventricular system is unremarkable. The basal cisterns are patent. No extra- axial collections are present. There are no findings to suggest acute dural sinus thrombosis or acute territorial infarct. No significant calvarial abnormalities are present. Visualized portions of the sinuses and mastoid air cells are clear. IMPRESSION: 1. No acute intracranial findings. No change in appearance of the brain. 2. No acute calvarial fracture. ACT 112: Negative or not required by law. Electronically signed by: Ferny England M.D. 05/01/2022 1:02 PM Chest X-Ray 05/01/22 12:09 XR chest 1V portable CLINICAL HISTORY: syncope COMPARISON STUDY: Chest radiograph February 24, 2022. Chest CT March 26, 2022. FINDINGS: A pacer device is noted. There are median sternotomy wires. Intracanalicular electrodes are noted. Lung volumes are diminished. This is unchanged. No pneumothorax or pleural effusion is noted. Minimal left basilar opacity favors atelectasis. No consolidation to suggest pneumonia. No evidence for pulmonary edema. IMPRESSION: No acute cardiopulmonary findings. Low lung volumes. ACT 112: Negative or not required by law. Electronically signed by: Ferny England M.D. 05/01/2022 12:55 PM Medications Administered Home Medications allopurinol 100 mg tablet 100 mg PO QAM 09/23/20 [History Confirmed 03/11/22] aspirin 81 mg tablet,delayed release 81 mg PO QAM 09/23/20 [History Confirmed 03/11/22] calcium carbonate 600 mg-vitamin D3 5 mcg (200 unit) tablet 2 tab PO BID 09/23/20 [History Confirmed 03/11/22] finasteride 5 mg tablet 5 mg PO QAM 09/23/20 [History Confirmed 03/11/22] rosuvastatin 20 mg tablet 20 mg PO HS 09/23/20 [History Confirmed 03/11/22] valsartan 80 mg tablet 80 mg PO QAM 09/23/20 [History Confirmed 03/11/22] ciclesonide 160 mcg/actuation aerosol inhaler (Alvesco) 1 puff inhalation BID 07/21/21 [History Confirmed 03/11/22] docusate sodium 100 mg capsule 200 mg PO BID 07/21/21 [History Confirmed 03/11/22] meclizine 12.5 mg tablet 12.5 mg PO TID PRN vertigo/dizziness #30 tabs 07/24/21 [Rx Confirmed 03/11/22] polyethylene glycol 3350 17 gram oral powder packet (Miralax) 17 g PO DAILY #1 btl 07/24/21 [Rx Confirmed 03/11/22] albuterol sulfate 90 mcg/actuation aerosol inhaler 2 puff inhalation QID PRN Shortness Of Breath 02/06/22 [History Confirmed 03/11/22] aluminum hydrox-magnesium carb 95 mg-358 mg/15 mL oral suspension (Acid Gone Antacid) 30 ml PO PCHS PRN Heartburn 02/06/22 [History Confirmed 03/11/22] amlodipine 5 mg tablet 5 mg PO DAILY 02/06/22 [History Confirmed 03/11/22] aripiprazole 2 mg tablet (Abilify) 2 mg PO DAILY 02/06/22 [History Confirmed 03/11/22] duloxetine 60 mg capsule,delayed release 60 mg PO BID 02/06/22 [History Confirmed 03/11/22] insulin glargine 100 unit/mL subcutaneous solution 11 unit subcut DAILY 02/06/22 [History Confirmed 03/11/22] insulin regular human 100 unit/mL injection solution (Novolin R Regular U-100 Insulin) 1 sliding scale dose subcut USEASDIRECTD 02/06/22 [History Confirmed ] metoprolol tartrate 25 mg tablet 12.5 mg PO BID 02/06/22 [History Confirmed 03/11/22] pantoprazole 40 mg tablet,delayed release 40 mg PO DAILY 02/06/22 [History Confirmed 03/11/22] prazosin 2 mg capsule 2 mg PO HS 02/06/22 [History Confirmed 03/11/22] tamsulosin 0.4 mg capsule 0.8 mg PO HS 02/06/22 [History Confirmed 03/11/22] famotidine 20 mg tablet 20 mg PO BID #60 tabs 02/25/22 [Rx Confirmed 03/11/22] pantoprazole 40 mg tablet,delayed release (Protonix) 40 mg PO BID #60 tabs 02/25/22 [Rx Confirmed 03/11/22] ECG Additional Comments: 01-MAY-2022 11:51:33 [facility]-EDSTAT ROUTINE RETRIEVAL Ventricular-paced rhythm in a pattern of bigeminy Abnormal ECG When compared with ECG of 28-MAR-2022 06:14, Electronic ventricular pacemaker has replaced Sinus rhythm Vent. rate has increased BY 110 BPM Code Status & VTE Plan Code Status CODE: FULL VTE: SCDS, Hold on chemoprophylaxis unti INR recheck VTE Prophylaxis Plan VTE Prophylaxis will be ordered: Yes Supervising Physician Co-Signing Physician Notes I supervised BRIAN Mixon on this admission. I interviewed and examined the patient independently of him. The plan is as written in his note except for any following changes/exceptions: None 56yo M w/ hx of repeated syncope who presents with another episode of syncope. Since his last admission, he had his tricuspid valve replaced, MAZE procedure, clipping of ZOEY, and pacemaker inserted. Pacemaker interrogated without any abnormalities. Having some chest pain during my interview; received nitrogl ycerin SL and will get nitro past. Echo pending. Discussing case with cardiology. PG Care Time/CCT Total # of Minutes Spent Total Time Spent with Patient: Total time spent is greater than 50% in coordination of care (as documented) at patient's floor/unit and/or counseling patient: Coding Level of Care Code 47955 Initial Inpt Care Lvl 3 Diagnoses Syncope and collapse R55 Chest pain R07.9 Elevated troponin R77.8 Elevated INR R79.1 CAD (coronary artery disease) I25.10 Diabetes mellitus E11.9 BPH w urinary obs/LUTS N40.1; N13.8 GERD (gastroesophageal reflux disease) K21.9 Pacemaker Z95.0 Tricuspid valve replaced Z95.4
[2022-05-01 15:04] LABS: Potassium 4.7 mmol/L (3.5-5.1)
[2022-05-01 15:10] LABS: Troponin I High Sensitivity 110.3 pg/ml (0-20)
[2022-05-01] MEDS ORDERED: NITROGLYCERIN SL 0.4 MG/TAB TAB SL STA (17:04)
[2022-05-01] MEDS ORDERED: NITROGLYCERIN SL 0.4 MG/TAB TAB ONE (17:07)
[2022-05-01] MEDS: NITROGLYCERIN 2% OINTMENT 30GM TUBE EXT SCH (18:20)
[2022-05-01] MEDS ORDERED: GLUCOSE 10 TAB/TUBE PO PRN (19:35)
[2022-05-01] MEDS ORDERED: ALBUTEROL HFA 8 GM INHALER INH PRN (19:35)
[2022-05-01] MEDS ORDERED: MECLIZINE 12.5 MG TAB PO PRN (19:35)
[2022-05-01] MEDS ORDERED: GLUCAGON FOR INJ 1 MG VIAL SQ PRN (19:35)
[2022-05-01] MEDS ORDERED: GLUCOSE 40% GEL 15 GM TUBE PO PRN (19:35)
[2022-05-01] MEDS ORDERED: DEXTROSE 50% 50 ML SYRINGE IV PRN (19:35)
[2022-05-01] MEDS ORDERED: LACTATED RINGER'S 1,000 ML IV ONE (19:45)
[2022-05-01] MEDS ORDERED: TAMSULOSIN HCL 0.4 MG CAP PO SCH (21:00)
--- NOTE | 2022-05-01 21:28 | Electrocardiogram Report ---
Test Reason : Blood Pressure : / mmHG Vent. Rate : 178 BPM Atrial Rate : 178 BPM P-R Int : 000 ms QRS Dur : 136 ms QT Int : 222 ms P-R-T Axes : 000 169 009 degrees QTc Int : 382 ms AV dual-paced rhythm Abnormal ECG When compared with ECG of 28-MAR-2022 06:14, Electronic ventricular pacemaker has replaced Sinus rhythm Confirmed by Abhishek Caro ([id number]) on 05/01/2022 9:28:15 PM Referred By: [facility] Confirmed By:Abhishek Caro
[2022-05-01] MEDS: FAMOTIDINE 20 MG TAB PO SCH (22:08)
[2022-05-01] MEDS: DULoxetine HCL 60 MG CAP PO SCH (22:08)
[2022-05-01] MEDS: FLUTICASONE FUROATE 200MCG 14 PUFFS/INHALER INH SCH (22:10)
[2022-05-01] MEDS: METOPROLOL TARTRATE 25 MG TAB PO SCH (22:11)
[2022-05-01] MEDS: ROSUVASTATIN CALCIUM 20 MG TAB PO SCH (22:12)
[2022-05-01] MEDS: POTASSIUM CHLORIDE CRTAB 20 MEQ TABCR PO SCH (22:12)
[2022-05-01] MEDS: INSULIN ASPART PER UNIT SC SCH (22:20)
[2022-05-02] MEDS: NITROGLYCERIN 2% OINTMENT 30GM TUBE EXT SCH ×3 (00:16→12:18)
[2022-05-02 07:47] LABS: Basophils # (auto) 0.04 K/uL (0-0.2); Eosinophils # (auto) 0.17 K/uL (0-0.50); Eosinophils % (auto) 4.3 %; Hematocrit (blood only) 31.4 % (40.1-51.0); Hemoglobin 10.2 g/dl (14.0-18.0); Immature Granulocytes # (auto) 0.01 K/uL (0.00-0.02); Immature Granulocytes % (auto) 0.3 %; Lymphocytes # (auto) 1.15 K/uL (1.2-3.4); Lymphocytes % (auto) 29.3 %; Mean Corpuscular Hemoglobin 27.1 pg (25.0-34.0); Mean Corpuscular Hgb Conc 32.5 g/dL (32.0-36.0); Mean Corpuscular Volume 83.5 fL (80.0-100.0); Mean Platelet Volume 7.7 fL (9.4-12.4); Monocytes # (auto) 0.39 K/uL (0.24-0.82); Monocytes % (auto) 9.9 %; Neutrophils # (auto) 2.17 K/uL (1.4-6.5); Neutrophils % (auto) 55.2 %; Platelet Count 463 K/uL (130-400); RDW Coefficient of Variation 14.4 % (11.5-14.5); RDW Standard Deviation 44.3 fL (36.4-46.3); Red Blood Count 3.76 M/uL (4.63-6.08); White Blood Count 3.93 K/ul (4.8-10.8)
[2022-05-02 08:18] LABS: BUN Creatinine Ratio 17.3 (10-20); Calcium 9.2 mg/dl (8.5-10.1); Creatinine Clr Calc Pharmacy 73.2 ml/min; Est GFR (African American) 85.3 ml/min; Est GFR (Non-African American) 73.6 ml/min; Magnesium 1.7 mg/dl (1.7-2.4); Potassium 4.7 mmol/L (3.5-5.1)
[2022-05-02] MEDS: ASPIRIN 81 MG ECTAB PO SCH (09:02)
[2022-05-02] MEDS: PANTOprazole 40 MG TAB PO SCH (09:02)
[2022-05-02] MEDS: METOPROLOL TARTRATE 25 MG TAB PO SCH ×2 (09:03→21:45)
[2022-05-02] MEDS: FINASTERIDE 5 MG TAB PO SCH (09:03)
[2022-05-02] MEDS: DULoxetine HCL 60 MG CAP PO SCH ×2 (09:04→21:42)
[2022-05-02] MEDS: FAMOTIDINE 20 MG TAB PO SCH ×2 (09:04→21:42)
[2022-05-02] MEDS: ARIPIprazole 1 MG/ML ORAL SOLN 150 ML BTL PO SCH (09:04)
[2022-05-02] MEDS: POTASSIUM CHLORIDE CRTAB 20 MEQ TABCR PO SCH (09:04)
[2022-05-02] MEDS: allopurinoL 100 MG TAB PO SCH (09:06)
[2022-05-02] MEDS: INSULIN ASPART PER UNIT SC SCH ×4 (09:14→21:44)
[2022-05-02] MEDS: LANTUS PER UNIT CHARGE SQ SCH (09:15)
[2022-05-02 10:02] LABS: INR 3.1 (0.9-1.1); Prothrombin Time 30.9 Seconds (9.0-12.0)
--- NOTE | 2022-05-02 14:14 | Hospitalist Progress Note ---
Date of Service May 02, 2022 Assessment & Plan (1) Syncope and collapse: Plan: Patient with syncope and collapse on day of admission. SOunds like orthostasis and he was unable to complete orthostatic vitals today due to severe lightheadedness with stainding. SBP did drop 10 points alone just from going from lying to sitting He has had this issue ongoing for some times Likely exacerbated by current volume status with diarrhea and multiple medications effecting BP and alpha blockers as wlel as lasix use - Interrogated pacemaker see below- no AF/AT VT/VF episodes - checked random cortisol and normal, AM cortisol normal - received LR for one literon admission--> will give another 1 L lR now at 80mL/hr -dc lasix, dc FLomax and Prazosin - no other focal deficits and without loss of bowel or bladder and without confusion following therefore not likely to be seizure. Also seen by Neuro last admission who agreed not seizure -I do not think this is vertigo-dc meclizine -add DEXTER hose for orthostasis -continue daily orthostatics -dc potassium as dc-ing lasix (2) Chest pain: Plan: With chronic chest pain, proven to be nonischemic in the past with cardiac cath Does have mildly elevated troponin here at 100/100/92, ECHO without WMAs, no evidence of pericarditis ECG paced -dc nitro-paste -did have hiatal hernia large that was repaired in 02/2022 -now s/p midline sternotomy and could be having MSK pain from this can take tylenol as needed for pain (3) Elevated troponin: Plan: as above, noncardiac, ECG paced likely demand ischemia from orthostasis, syncope, in setting of recent valve repair cath in 02/22- with mild LAD in stent stenosis - ECHO without WMAs - Cardiology consulted- appreciated (4) Elevated INR: Plan: INR elevated 3.4 on warfarin following his tricuspid valve replacement at [facility] [place] - Goal 1.5-2.0 reported INR down to 3.1 today -continue to hold warfarin -follow INR (5) CAD (coronary artery disease): Plan: h/o LAD stent - continue asa - continue statin, metoprolol (6) Diabetes mellitus: Plan: Continue basal bolus insulin goal <180 mg/dl (7) BPH w urinary obs/LUTS: Plan: on high doses of flomax 0.8mg and prazosin (perhaps for Psych purposes?)-I had recommended the prazosin be discontinued in February but somehow has been restarted given profound orthostasis--> HOLD Flomax for now and dc Prazosin if has issues with urinary retention, can restart FLomax 0.4 -continue finasteride does not follow with Urology (8) GERD (gastroesophageal reflux disease): Plan: GERD with esophagitis - continue H2 and PPI (9) Pacemaker: Plan: Pacemaker is [employer] [place] XT DR MRI [id number] SERIAL number [id number] - LEADS [id number] capsure EPI - MR conditional - NO - DDD with mode switch at 171 - low rate 90 upper track 120 - AT/AF >170 - VT >150 This was inserted following biatrial MAZE and clipping of left atrial appendage (10) Tricuspid valve replaced: Plan: Done at [facility] [place] with his pacemaker placement- bioprosthesis - On Warfarin as above - goal reported 1.5-2.0 Plan Dispo-continued stay on med-tele Admission and Anticipated Discharge Date Admission Date: May 01, 2022 Subjective Pt still feeling very lightheaded with standing up. Still having diarrhea. Has his usual intermittent chest pain.He is eating food when I saw him without any complaints. I discussed his care with Cardiology Pt denies SOB. Tele with paced rhythm, rates 60-80s Review of Systems Review of Systems: All systems reviewed & are unremarkable except as noted in HPI & below Physical Exam Constitutional: WD/WN, vitals as above ENMT: external ear and nose normal, oropharynx normal Neck: trachea midline, no thyromegaly Respiratory: normal respiratory effort, lungs clear to auscultation Cardiovascular: RRR, no murmur, no edema Chest (Breasts): Chest: + pacemaker; + abnormal inspection of chest (midline sternotomy scar healing) Gastrointestinal (Abdomen): normal bowel sounds, soft, nontender, no hepatosplenomegaly Musculoskeletal: Extremities: extremities normal to inspection; no cyanosis and no clubbing Skin: no rashes, warm and dry Neurologic: moves all extremities and awake; no focal motor deficits Psychiatric: A+Ox3, euthymic affect Lymphatic: no lymphedema Results & Data Results & Data ([facility]) Vital Signs (Past 12 Hours) Vital Signs Temp Pulse Pulse Resp BP Pulse Ox O2 Del Method 05/02/22 12:19 110/72 05/02/22 11:16 37.1 C 18 97 Room Air 05/02/22 07:00 89 05/02/22 08:00 37.1 C 85 18 111/72 96 Room Air 05/02/22 05:18 84 114/82 05/02/22 03:24 36.7 C 89 18 108/72 96 Room Air Laboratory Results 05/02/22 05/02/22 05/02/22 Range/Units 16:55 11:41 09:36 WBC (4.8-10.8) K/ul RBC (4.63-6.08) M/uL Hgb (14.0-18.0) g/dl Hct (40.1-51.0) % MCV (80.0-100.0) fL MCH (25.0-34.0) pg MCHC (32.0-36.0) g/dL RDW Std Deviation (36.4-46.3) fL RDW Coeff of Eliana (11.5-14.5) % Plt Count (130-400) K/uL MPV (9.4-12.4) fL Immature Gran % (Auto) % Neut % (Auto) % Lymph % (Auto) % [place] % (Auto) % Eos % (Auto) % Baso % (Auto) % Neut # (Auto) (1.4-6.5) K/uL Lymph # (Auto) (1.2-3.4) K/uL [place] # (Auto) (0.24-0.82) K/uL Eos # (Auto) (0-0.50) K/uL Baso # (Auto) (0-0.2) K/uL Immature Gran # (Auto) (0.00-0.02) K/uL PT 30.9 H (9.0-12.0) Seconds INR 3.1 H (0.9-1.1) Sodium (136-145) mmol/L Potassium (3.5-5.1) mmol/L Chloride (98-107) mmol/L Carbon Dioxide (21-32) mmol/L Anion Gap (3-11) BUN (6-23) mg/dl Creatinine (0.6-1.4) mg/dl Est Cr Clr Drug Dosing ml/min Est GFR ( Amer) ml/min Est GFR (Non-Af Amer) ml/min BUN/Creatinine Ratio (10-20) Glucose (70-99(Fasting)) mg/dl POC Glucose 105 H 92 (70-99) mg/dl Calcium (8.5-10.1) mg/dl Magnesium (1.7-2.4) mg/dl Troponin I High Sens (0-20) pg/ml Cortisol AM Sample (6.2-22.6) mcg/dl 05/02/22 05/02/22 05/02/22 Range/Units 07:53 07:30 07:30 WBC (4.8-10.8) K/ul RBC (4.63-6.08) M/uL Hgb (14.0-18.0) g/dl Hct (40.1-51.0) % MCV (80.0-100.0) fL MCH (25.0-34.0) pg MCHC (32.0-36.0) g/dL RDW Std Deviation (36.4-46.3) fL RDW Coeff of Eliana (11.5-14.5) % Plt Count (130-400) K/uL MPV (9.4-12.4) fL Immature Gran % (Auto) % Neut % (Auto) % Lymph % (Auto) % [place] % (Auto) % Eos % (Auto) % Baso % (Auto) % Neut # (Auto) (1.4-6.5) K/uL Lymph # (Auto) (1.2-3.4) K/uL [place] # (Auto) (0.24-0.82) K/uL Eos # (Auto) (0-0.50) K/uL Baso # (Auto) (0-0.2) K/uL Immature Gran # (Auto) (0.00-0.02) K/uL PT (9.0-12.0) Seconds INR (0.9-1.1) Sodium (136-145) mmol/L Potassium (3.5-5.1) mmol/L Chloride (98-107) mmol/L Carbon Dioxide (21-32) mmol/L Anion Gap (3-11) BUN (6-23) mg/dl Creatinine (0.6-1.4) mg/dl Est Cr Clr Drug Dosing ml/min Est GFR ( Amer) ml/min Est GFR (Non-Af Amer) ml/min BUN/Creatinine Ratio (10-20) Glucose (70-99(Fasting)) mg/dl POC Glucose 128 H (70-99) mg/dl Calcium (8.5-10.1) mg/dl Magnesium (1.7-2.4) mg/dl Troponin I High Sens 92.8 H* D (0-20) pg/ml Cortisol AM Sample 10.52 (6.2-22.6) mcg/dl 05/02/22 05/02/22 05/02/22 Range/Units 07:30 07:30 00:06 WBC 3.93 L (4.8-10.8) K/ul RBC 3.76 L (4.63-6.08) M/uL Hgb 10.2 L (14.0-18.0) g/dl Hct 31.4 L (40.1-51.0) % MCV 83.5 (80.0-100.0) fL MCH 27.1 (25.0-34.0) pg MCHC 32.5 (32.0-36.0) g/dL RDW Std Deviation 44.3 (36.4-46.3) fL RDW Coeff of Eliana 14.4 (11.5-14.5) % Plt Count 463 H (130-400) K/uL MPV 7.7 L (9.4-12.4) fL Immature Gran % (Auto) 0.3 % Neut % (Auto) 55.2 % Lymph % (Auto) 29.3 % [place] % (Auto) 9.9 % Eos % (Auto) 4.3 % Baso % (Auto) 1.0 % Neut # (Auto) 2.17 (1.4-6.5) K/uL Lymph # (Auto) 1.15 L (1.2-3.4) K/uL [place] # (Auto) 0.39 (0.24-0.82) K/uL Eos # (Auto) 0.17 (0-0.50) K/uL Baso # (Auto) 0.04 (0-0.2) K/uL Immature Gran # (Auto) 0.01 (0.00-0.02) K/uL PT (9.0-12.0) Seconds INR (0.9-1.1) Sodium 135 L (136-145) mmol/L Potassium 4.7 (3.5-5.1) mmol/L Chloride 103 (98-107) mmol/L Carbon Dioxide 24 (21-32) mmol/L Anion Gap 8 (3-11) BUN 19 (6-23) mg/dl Creatinine 1.10 (0.6-1.4) mg/dl Est Cr Clr Drug Dosing 73.2 ml/min Est GFR ( Amer) 85.3 ml/min Est GFR (Non-Af Amer) 73.6 ml/min BUN/Creatinine Ratio 17.3 (10-20) Glucose 117 H (70-99(Fasting)) mg/dl POC Glucose (70-99) mg/dl Calcium 9.2 (8.5-10.1) mg/dl Magnesium 1.7 (1.7-2.4) mg/dl Troponin I High Sens 102.8 H* (0-20) pg/ml Cortisol AM Sample (6.2-22.6) mcg/dl 05/01/22 05/01/22 Range/Units 22:06 19:53 WBC (4.8-10.8) K/ul RBC (4.63-6.08) M/uL Hgb (14.0-18.0) g/dl Hct (40.1-51.0) % MCV (80.0-100.0) fL MCH (25.0-34.0) pg MCHC (32.0-36.0) g/dL RDW Std Deviation (36.4-46.3) fL RDW Coeff of Eliana (11.5-14.5) % Plt Count (130-400) K/uL MPV (9.4-12.4) fL Immature Gran % (Auto) % Neut % (Auto) % Lymph % (Auto) % [place] % (Auto) % Eos % (Auto) % Baso % (Auto) % Neut # (Auto) (1.4-6.5) K/uL Lymph # (Auto) (1.2-3.4) K/uL [place] # (Auto) (0.24-0.82) K/uL Eos # (Auto) (0-0.50) K/uL Baso # (Auto) (0-0.2) K/uL Immature Gran # (Auto) (0.00-0.02) K/uL PT (9.0-12.0) Seconds INR (0.9-1.1) Sodium (136-145) mmol/L Potassium (3.5-5.1) mmol/L Chloride (98-107) mmol/L Carbon Dioxide (21-32) mmol/L Anion Gap (3-11) BUN (6-23) mg/dl Creatinine (0.6-1.4) mg/dl Est Cr Clr Drug Dosing ml/min Est GFR ( Amer) ml/min Est GFR (Non-Af Amer) ml/min BUN/Creatinine Ratio (10-20) Glucose (70-99(Fasting)) mg/dl POC Glucose 129 H (70-99) mg/dl Calcium (8.5-10.1) mg/dl Magnesium (1.7-2.4) mg/dl Troponin I High Sens 101.8 H* (0-20) pg/ml Cortisol AM Sample (6.2-22.6) mcg/dl PG Care Time/CCT Total # of Minutes Spent Total Time Spent with Patient: Total time spent is greater than 50% in coordination of care (as documented) at patient's floor/unit and/or counseling patient: Coding Level of Care Code 02940 Subseq Hosp Care Lvl 3 Diagnoses Syncope and collapse R55 Chest pain R07.9 Elevated troponin R77.8 Elevated INR R79.1 CAD (coronary artery disease) I25.10 Diabetes mellitus E11.9 BPH w urinary obs/LUTS N40.1; N13.8 GERD (gastroesophageal reflux disease) K21.9 Pacemaker Z95.0 Tricuspid valve replaced Z95.4
[2022-05-02] MEDS ORDERED: LACTATED RINGER'S 1,000 ML IV SCH (14:15)
--- NOTE | 2022-05-02 14:55 | Cardiology Consultation ---
Date of Consultation May 02, 2022 Assessment & Plan (1) Syncope: (2) Elevated troponin: (3) Chest pain: (4) CAD (coronary artery disease): (5) S/P coronary artery stent placement: (6) Tricuspid valve replaced: (7) Pacemaker: (8) Tricuspid regurgitation: Plan ASSESSMENT/PLAN: 1. Syncope: Presentation consistent with orthostatic etiology. Became quite symptomatic here during orthostatic vitals, to the point that they were unable to be completed. Recommend discontinuation of Lasix. Alpha blockers discontinued by primary hospitalist service. Diarrhea may also be playing a role. Receiving fluids as per hospitalist service. Recommended compression stockings. Adequate hydration. If conservative measures fail, could consider medical therapy. Although not located for personal review, apparently underwent pacer interrogation without arrhythmia. 2. Atypical chest pain: Has longstanding chest pain. This is consistent with his usual chest pain which is prolonged. Has minimally elevated troponin. Had same pain before, during, and after cardiac catheterization in March without obstructive CAD noted. Chest pain is not consistent with ischemic heart disease. Chest pain was present prior to recent cardiac surgery and not consistent with pericarditis. Chest pain appears to be noncardiac in nature. 3. Elevated troponin: He did not rule in for myocardial infarction. Could be due to demand ischemia in the setting of syncope where presumed orthostatic hypotension, which could cause poor perfusion transiently. 4. Tricuspid valve replacement: Details of recent [facility] surgery not known. Followed up with CT surgery [facility] 2 days ago and has a follow-up appointment in June per patient report. tricuspid valve replacement appears to be functioning appropriately. Records have been obtained from [facility] but were not located for review, apparently pending scanning into EHR. SBE prophylaxis for dental procedures. On anticoagulation therapy. 5. Pacemaker: Indication for pacemaker placement not known at the time of this consult. Records from her she are apparently being scanned into EHR for review. Should follow with electrophysiology for long-term management. Has been seen in the office by Dr. Caro in the past. 6. CAD s/p LAD PCI 2000: No angina. Continue aspirin 81 mg daily. Continue high-intensity statin therapy and beta-carmen as tolerated. Nonobstructive CAD in February of 2022 pre valve catheterization. 7. Disposition: Patient care discussed with Dr. Garcia of the primary hospitalist service. Cardiology will continue to follow. Thank you for allowing me to participate in the care of your patient. Please call for any other questions or concerns. Sincerely, Dougie Alicia M.D. History of Present Illness Reason for Consultation: syncope and elevated troponin Requesting Physician: Fredy Mora Attending Physician: Pooja Garcia MD History of Present Illness Mr. Curtis is a pleasant 56-year-old gentleman with history significant for tricuspid regurgitation s/p TV replacement, pulmonary hypertension, CAD s/p LAD PCI x 2 in the setting of an MS in 2000 in [place], insulin-dependent diabetes, hypertension, and dyslipidemia. He has been seen in the cardiology office by Dr. Caro. He has had the following studies/procedures: 1. Cardiac catheterization 2000 [place]: Lad PCI x2 in the setting of MS. 2. Echo 01/21/2022 [place]: EF 70% with normal wall motion. Moderately dilated RV with normal systolic function. Severe TR with [id number] pulmonary hypertension. 3. Cardiac catheterization 02/13/2022 [facility]: Pre valve surgery angiography. Mid LAD stent approximately 50% in stent restenoses on visual inspection. PRAVEEN 3 flow. IVUS of LAD mild CAD. FFR 0.85. Ostial Cx 40% by IVUS. D1 ostial 20- 30%. Dominant RCA with luminal irregularities. Developed chest discomfort during the procedure with radiation to left arm. LVEDP 10. No . PCWP 16. PA 32/13 with mean 19. RV 34/4. Mean RAP 5. CO by thermodilution 5.8 with a CI of 2.81. PVR 0.52. 4. Echo 02/14/2022 [facility]: LV EF 55-60%. Normal wall motion. Dilated RV with normal systolic function. Limited echo. 5. Tricuspid valve replacement 04/13/2022 [facility]: Details not known. 6. Pacemaker [facility] April 2022: Details not known. [place] [facility] [place]. He has a history of recurrent syncope. He states that he was sleeping and awakened by a cell may who told him that he needed to report to the nurse. He stood up and started walking before having a syncopal event. This is a chronic issue. He typically sits at the bedside for a couple of minutes before standing up. He admits that he has not been hydrating much. Since discharge from [facility], he has been on Lasix 40 mg daily and also has had diarrhea for 4-5 episodes each day. He has been hospitalized in the past for falls and was felt that he had vertigo. He was seen by Neurology in March of 2022. Orthostatic vital signs at that time were reportedly negative. while in the emergency department, he also reported a sharp/pressure chest discomfort which was substernal in nature. This has been a chronic issue. He had such chest discomfort during cardiac catheterization and following cardiac catheterization, despite no severe CAD on visual inspection and IVUS/FFR. The chest discomfort has been pleuritic in nature at times which is consistent with his previous description. It is not positional. It is similar to the pain that he has been experiencing chronically. During February 2022 hospitalization, he underwent repair of a hiatal hernia with hopes of improving his chest discomfort, but unfortunately he has not noted any significant improvement. When he was seen earlier this afternoon, he reports that he continues to have chest discomfort. Orthostatic vital signs were attempted earlier today and he was unable to stand up to complete them secondary to lightheadedness. A guard at the bedside also reported that he looked as though he was going to pass out when sitting up to undergo a blood pressure check earlier today. He denies fevers, chills, sternotomy drainage, melena, hematochezia, hematuria, palpitations. He does have some lower abdominal discomfort. Review of systems: As above. Review of systems otherwise negative/unremarkable. Family history: Mother and father had heart issues but both from malignancy. Social history: He denies smoking, alcohol, or drug abuse. . One daughter. From [place]. Currently residing at [facility]. Allergies Allergy/AdvReac Type Severity Reaction Status Date / Time lisinopril Allergy Severe ANAPHYLAXIS Verified 05/01/22 15:05 ibuprofen Allergy Intermediate HIVES Verified 05/01/22 15:05 morphine Allergy Intermediate HIVES Verified 05/01/22 15:05 capsaicin Allergy Unknown Unknown Verified 05/01/22 15:05 phenytoin Allergy Unknown Unknown Verified 05/01/22 15:05 Home Medications Medication Instructions Recorded Confirmed Type aspirin 81 mg tablet,delayed 81 mg PO QAM 09/23/20 05/01/22 History release calcium carbonate 600 mg-vitamin 2 tab PO BID 09/23/20 05/01/22 History D3 5 mcg (200 unit) tablet rosuvastatin 20 mg tablet 20 mg PO QPM 09/23/20 05/01/22 History ciclesonide 160 mcg/actuation 1 puff inhalation BID 07/21/21 05/01/22 History aerosol inhaler (Alvesco) docusate sodium 100 mg capsule 200 mg PO BID 07/21/21 05/01/22 History polyethylene glycol 3350 17 gram 17 g PO DAILY #1 btl 07/24/21 05/01/22 Rx oral powder packet (Miralax) albuterol sulfate 90 mcg/actuation 2 puff inhalation QID PRN 02/06/22 05/01/22 History aerosol inhaler Shortness Of Breath aripiprazole 2 mg tablet (Abilify) 2 mg PO DAILY 02/06/22 05/01/22 History duloxetine 60 mg capsule,delayed 60 mg PO BID 02/06/22 05/01/22 History release insulin glargine 100 unit/mL 11 unit subcut DAILY 02/06/22 05/01/22 History subcutaneous solution insulin regular human 100 unit/mL 1 sliding scale dose subcut 02/06/22 05/01/22 History injection solution (Novolin R USEASDIRECTD PRN DEPENDING ON BSG'S Regular U-100 Insulin) tamsulosin 0.4 mg capsule 0.8 mg PO QPM 02/06/22 05/01/22 History famotidine 20 mg tablet 20 mg PO BID #60 tabs 02/25/22 05/01/22 Rx acetaminophen 325 mg tablet 650 mg PO QID 05/01/22 05/01/22 History (Tylenol) furosemide 40 mg tablet (Lasix) 40 mg PO DAILY 05/01/22 05/01/22 History potassium chloride 20 mEq 20 meq PO BID 05/01/22 05/01/22 History tablet,extended release warfarin 2 mg tablet 2 mg PO HS 05/01/22 05/01/22 History warfarin 2.5 mg tablet 2.5 mg PO HS 05/01/22 05/01/22 History Patient History Medical History (Updated 05/02/22 @ 18:55 by Tomás Alicia MD) Angina pectoris Asthma Atypical chest pain Bowel obstruction CAD (coronary artery disease) Chest pain Depression DM type 2 (diabetes mellitus, type 2) Gout Head injury History of CVA (cerebrovascular accident) Hx SBO Hyperlipidemia Hypertension Iron deficiency anemia Pacemaker Peptic ulcer disease Pulmonary hypertension Sarcoidosis Skin cancer Syncope Tricuspid regurgitation Surgical History (Updated 05/02/22 @ 18:55 by Tomás Alicia MD) H/O exploratory laparotomy "05/31/2015 with lysis of adhesions, release of bowel obstruction, repair of incisional hernia" H/O ventral hernia repair History of back surgery History of repair of hiatal hernia (02/19/22) Laparoscopic Repair of Hiatal Hernia; partial gastric fundoplication; posterior gastropexy(Not Applicable) - [facility], S/P cardiac cath S/P coronary artery stent placement (05/07/13) "2000" Tricuspid valve replaced Family History Mother , age 67 Lung cancer Father , age 68 Lung cancer Brother Stroke age 55 Social History Smoking Status: Never smoker Hx Alcohol Use: No Hx Substance Use: No Preferred Language: Macedonian Communication Ability: Effective Visual Impairment: No Limitations Seismograph Recorder Required: No Beliefs That Will Affect Care: None Current Living Situation: Other Current Living Situation Comment: [facility]dc - [facility] Feels Safe at Home: Yes Assistive Devices: None Physical Exam Physical Exam: Gen.: No acute distress. Alert and oriented. HEENT: Anicteric sclera. Neck: No JVD. No bruits. Normal carotid upstrokes bilaterally. Cardiac: No ventricular heave. Regular. Normal S1-S2. No murmurs, rubs, or gallops. Pulmonary: Clear to auscultation bilaterally without wheezes, rales, or rhonchi. Abdomen: Soft, nontender, nondistended, with normoactive bowel sounds. No bruits noted. Extremities: 2+ radial pulses bilaterally. 2+ posterior tibialis pulses bilaterally. No edema or cyanosis. Psychiatric: Affect appears appropriate. Results & Data ([facility]) Vital Signs (Past 12 Hours) Vital Signs Temp Pulse Pulse Resp BP Pulse Ox O2 Del Method 05/02/22 12:19 110/72 05/02/22 11:16 37.1 C 18 97 Room Air 05/02/22 07:00 89 05/02/22 08:00 37.1 C 85 18 111/72 96 Room Air 05/02/22 05:18 84 114/82 05/02/22 03:24 36.7 C 89 18 108/72 96 Room Air Laboratory Results Laboratory Results - last 24 hr 05/01/22 05/01/22 05/01/22 14:29 14:29 14:30 WBC RBC Hgb Hct MCV MCH MCHC RDW Std Deviation RDW Coeff of Eliana Plt Count MPV Immature Gran % (Auto) Neut % (Auto) Lymph % (Auto) Pinal % (Auto) Eos % (Auto) Baso % (Auto) Neut # (Auto) Lymph # (Auto) Pinal # (Auto) Eos # (Auto) Baso # (Auto) Immature Gran # (Auto) PT INR Sodium 133 L Potassium 4.7 Chloride Carbon Dioxide Anion Gap BUN Creatinine Est Cr Clr Drug Dosing Est GFR ( Amer) Est GFR (Non-Af Amer) BUN/Creatinine Ratio Glucose POC Glucose Calcium Magnesium AST 18 Troponin I High Sens 110.3 H* Random Cortisol 7.99 Cortisol AM Sample SARS-CoV-2, RNA, NAAT NEGATIVE 05/01/22 05/01/22 05/02/22 19:53 22:06 00:06 WBC RBC Hgb Hct MCV MCH MCHC RDW Std Deviation RDW Coeff of Eliana Plt Count MPV Immature Gran % (Auto) Neut % (Auto) Lymph % (Auto) Pinal % (Auto) Eos % (Auto) Baso % (Auto) Neut # (Auto) Lymph # (Auto) Pinal # (Auto) Eos # (Auto) Baso # (Auto) Immature Gran # (Auto) PT INR Sodium Potassium Chloride Carbon Dioxide Anion Gap BUN Creatinine Est Cr Clr Drug Dosing Est GFR ( Amer) Est GFR (Non-Af Amer) BUN/Creatinine Ratio Glucose POC Glucose 129 H Calcium Magnesium AST Troponin I High Sens 101.8 H* 102.8 H* Random Cortisol Cortisol AM Sample SARS-CoV-2, RNA, NAAT 05/02/22 05/02/22 05/02/22 07:30 07:30 07:30 WBC 3.93 L RBC 3.76 L Hgb 10.2 L Hct 31.4 L MCV 83.5 MCH 27.1 MCHC 32.5 RDW Std Deviation 44.3 RDW Coeff of Eliana 14.4 Plt Count 463 H MPV 7.7 L Immature Gran % (Auto) 0.3 Neut % (Auto) 55.2 Lymph % (Auto) 29.3 Pinal % (Auto) 9.9 Eos % (Auto) 4.3 Baso % (Auto) 1.0 Neut # (Auto) 2.17 Lymph # (Auto) 1.15 L Pinal # (Auto) 0.39 Eos # (Auto) 0.17 Baso # (Auto) 0.04 Immature Gran # (Auto) 0.01 PT INR Sodium 135 L Potassium 4.7 Chloride 103 Carbon Dioxide 24 Anion Gap 8 BUN 19 Creatinine 1.10 Est Cr Clr Drug Dosing 73.2 Est GFR ( Amer) 85.3 Est GFR (Non-Af Amer) 73.6 BUN/Creatinine Ratio 17.3 Glucose 117 H POC Glucose Calcium 9.2 Magnesium 1.7 AST Troponin I High Sens 92.8 H* D Random Cortisol Cortisol AM Sample SARS-CoV-2, RNA, NAAT 05/02/22 05/02/22 05/02/22 07:30 07:53 09:36 WBC RBC Hgb Hct MCV MCH MCHC RDW Std Deviation RDW Coeff of Eliana Plt Count MPV Immature Gran % (Auto) Neut % (Auto) Lymph % (Auto) Pinal % (Auto) Eos % (Auto) Baso % (Auto) Neut # (Auto) Lymph # (Auto) Pinal # (Auto) Eos # (Auto) Baso # (Auto) Immature Gran # (Auto) PT 30.9 H INR 3.1 H Sodium Potassium Chloride Carbon Dioxide Anion Gap BUN Creatinine Est Cr Clr Drug Dosing Est GFR ( Amer) Est GFR (Non-Af Amer) BUN/Creatinine Ratio Glucose POC Glucose 128 H Calcium Magnesium AST Troponin I High Sens Random Cortisol Cortisol AM Sample 10.52 SARS-CoV-2, RNA, NAAT 05/02/22 11:41 WBC RBC Hgb Hct MCV MCH MCHC RDW Std Deviation RDW Coeff of Eliana Plt Count MPV Immature Gran % (Auto) Neut % (Auto) Lymph % (Auto) Pinal % (Auto) Eos % (Auto) Baso % (Auto) Neut # (Auto) Lymph # (Auto) Pinal # (Auto) Eos # (Auto) Baso # (Auto) Immature Gran # (Auto) PT INR Sodium Potassium Chloride Carbon Dioxide Anion Gap BUN Creatinine Est Cr Clr Drug Dosing Est GFR ( Amer) Est GFR (Non-Af Amer) BUN/Creatinine Ratio Glucose POC Glucose 92 Calcium Magnesium AST Troponin I High Sens Random Cortisol Cortisol AM Sample SARS-CoV-2, RNA, NAAT Diagnostic Findings Chest x-ray 05/01/2022: No acute cardiopulmonary findings. Low lung volumes. Telemetry Personally reviewed: Av paced. Echo personally reviewed from 05/02/2022: Preliminary review: Normal LV systolic function. Septal motion consistent with recent cardiac surgery. Tricuspid valve replacement noted without significant stenosis. Likely remnant chordal structure. Formal review to follow. ECGs personally reviewed: ECG 05/01/2022 at 11:51 a.m.: Av paced ECG 05/02/2022 at 5:29 a.m.: Av paced ECG 05/02/2022 at 5:31 a.m.: Av paced ECG 05/01/2022 at 5:25 p.m.: Av paced Medications Administered Current Inpatient Medications Acetaminophen (Acetaminophen 325 Mg Tab) 650 mg PO Q4H PRN PRN Reason: Pain or Fever Stop: 05/31/22 19:34 Albuterol (Albuterol Hfa 8 Gm Inhaler) 2 puffs INH QID PRN PRN Reason: Shortness Of Breath Stop: 05/31/22 19:34 Allopurinol (Allopurinol 100 Mg Tab) 100 mg PO QAM LIN Stop: 06/01/22 08:59 Last Admin: 05/02/22 09:06 Dose: 100 mg Aripiprazole (Aripiprazole 1 Mg/Ml Oral Soln 150 Ml Btl) 2 mg PO DAILY LIN Stop: 06/01/22 08:59 Last Admin: 05/02/22 09:04 Dose: 2 mg Aspirin (Aspirin 81 Mg Ectab) 81 mg PO QAM LIN Stop: 06/01/22 08:59 Last Admin: 05/02/22 09:02 Dose: 81 mg Dextrose (Dextrose 50% 50 Ml Syringe) 25 - 50 ml IV UD PRN; Protocol PRN Reason: Hypoglycemia Protocol Stop: 05/31/22 19:34 Duloxetine HCl (Duloxetine Hcl 60 Mg Cap) 60 mg PO BID LIN Stop: 05/31/22 20:59 Last Admin: 05/02/22 09:04 Dose: 60 mg Famotidine (Famotidine 20 Mg Tab) 20 mg PO BID [facility] Stop: 05/31/22 20:59 Last Admin: 05/02/22 09:04 Dose: 20 mg Finasteride (Finasteride 5 Mg Tab) 5 mg PO QAM [facility] Stop: 06/01/22 08:59 Last Admin: 05/02/22 09:03 Dose: 5 mg Fluticasone Furoate (Fluticasone Furoate 200mcg 14 Puffs/Inhaler) 1 puffs INH PM [facility]; Protocol Stop: 05/31/22 20:59 Last Admin: 05/01/22 22:10 Dose: 1 puffs Glucagon (Glucagon For Inj 1 Mg Vial) 1 mg SQ UD PRN; Protocol PRN Reason: Hypoglycemia Protocol Stop: 05/31/22 19:34 Glucose (Glucose 40% Gel 15 Gm Tube) 15 - 30 gm PO UD PRN; Protocol PRN Reason: Hypoglycemia Protocol Stop: 05/31/22 19:34 Glucose (Glucose 10 Tab/Tube) 4 - 8 tab PO UD PRN; Protocol PRN Reason: Hypoglycemia Treatment Stop: 05/31/22 19:34 Lactated Ringer's (Lr) 1,000 mls @ 80 mls/hr IV .[id number] [facility] Stop: 05/03/22 02:44 Last Admin: 05/02/22 14:26 Dose: 80 mls/hr Insulin Aspart (Insulin Aspart Per Unit) 0 units SC ACHS [facility] Stop: 05/31/22 20:59 Last Admin: 05/02/22 12:18 Dose: Not Given Insulin Glargine (Lantus Per Unit Charge) 11 units SQ DAILY [facility] Stop: 06/01/22 08:59 Last Admin: 05/02/22 09:15 Dose: 11 units Meclizine HCl (Meclizine 12.5 Mg Tab) 12.5 mg PO TID PRN PRN Reason: vertigo/dizziness Stop: 05/31/22 19:34 Last Admin: 05/02/22 09:03 Dose: 12.5 mg Metoprolol Tartrate (Metoprolol Tartrate 25 Mg Tab) 12.5 mg PO BID [facility] Stop: 05/31/22 20:59 Last Admin: 05/02/22 09:03 Dose: 12.5 mg Miscellaneous (Carbohydrates For Hypoglycemia ) 15 - 30 gm PO UD PRN PRN Reason: Hypoglycemia Protocol Stop: 05/31/22 19:34 Pantoprazole Sodium (Pantoprazole 40 Mg Tab) 40 mg PO DAILY LIN Stop: 06/01/22 08:59 Last Admin: 05/02/22 09:02 Dose: 40 mg Potassium Chloride (Potassium Chloride Crtab 20 Meq Tabcr) 20 meq PO QAM LIN Stop: 06/02/22 08:59 Rosuvastatin Calcium (Rosuvastatin Calcium 20 Mg Tab) 20 mg PO HS LIN Stop: 05/31/22 20:59 Last Admin: 05/01/22 22:12 Dose: 20 mg PG Care Time/CCT Total # of Minutes Spent Total Time Spent with Patient: Total time spent is greater than 50% in coordination of care (as documented) at patient's floor/unit and/or counseling patient: Coding Level of Care Code 19455 Inpt Consult Level 4 Diagnoses Syncope R55 Elevated troponin R77.8 Chest pain R07.9 CAD (coronary artery disease) I25.10 S/P coronary artery stent placement Z95.5 Tricuspid valve replaced Z95.4 Pacemaker Z95.0 Tricuspid regurgitation I07.1 Cardiac valve disease etiology: etiology unspecified (1) Tricuspid regurgitation Cardiac valve disease etiology: etiology unspecified Qualified Code(s): I07.1 - Rheumatic tricuspid insufficiency
[2022-05-02] MEDS: ROSUVASTATIN CALCIUM 20 MG TAB PO SCH (21:42)
[2022-05-02] MEDS: FLUTICASONE FUROATE 200MCG 14 PUFFS/INHALER INH SCH (21:42)
--- NOTE | 2022-05-02 22:45 | XCELERA ---
[id number]
[2022-05-03 00:50] LABS: Adenovirus F 40/41 PCR Not Detected (NotDetected); Astrovirus PCR Not Detected (NotDetected); Campylobacter PCR Not Detected (NotDetected); Clostridium diff Toxin A/B PCR Not Detected (NotDetected); Cryptosporidium PCR Not Detected (NotDetected); Cyclospora cayetanensis PCR Not Detected (NotDetected); Entamoeba histolytica PCR Not Detected (NotDetected); Enteroaggregative E.coli(EAEC) Not Detected (NotDetected); Enteropathogenic E.coli (EPEC) Not Detected (NotDetected); Enterotoxigenic E.coli (ETEC) Not Detected (NotDetected); Giardia lamblia PCR Not Detected (NotDetected); Norovirus GI/GII PCR Not Detected (NotDetected); Plesiomonas shigelloides PCR Not Detected (NotDetected); Rotavirus A PCR Not Detected (NotDetected); Salmonella PCR Not Detected (NotDetected); Sapovirus PCR Not Detected (NotDetected); Shiga-like Toxin E.coli (STEC) Not Detected (NotDetected); Shigella/Enteroinvasive E.coli Not Detected (NotDetected); Vibrio cholerae PCR Not Detected (NotDetected); Vibrio species PCR Not Detected (NotDetected); Yersinia enterocolitica PCR Not Detected (NotDetected)
[2022-05-03] MEDS: ARIPIprazole 1 MG/ML ORAL SOLN 150 ML BTL PO SCH (08:49)
[2022-05-03] MEDS: FAMOTIDINE 20 MG TAB PO SCH ×2 (08:50→19:47)
[2022-05-03] MEDS: DULoxetine HCL 60 MG CAP PO SCH ×2 (08:50→19:47)
[2022-05-03] MEDS: METOPROLOL TARTRATE 25 MG TAB PO SCH ×2 (08:50→19:47)
[2022-05-03] MEDS: ASPIRIN 81 MG ECTAB PO SCH (08:51)
[2022-05-03] MEDS: FINASTERIDE 5 MG TAB PO SCH (08:51)
[2022-05-03] MEDS: PANTOprazole 40 MG TAB PO SCH (08:51)
[2022-05-03] MEDS: allopurinoL 100 MG TAB PO SCH (08:51)
[2022-05-03 08:52] LABS: Basophils # (auto) 0.04 K/uL (0-0.2); Basophils % (auto) 0.9 %; Eosinophils # (auto) 0.15 K/uL (0-0.50); Eosinophils % (auto) 3.5 %; Hematocrit (blood only) 31.7 % (40.1-51.0); Hemoglobin 10.2 g/dl (14.0-18.0); Immature Granulocytes # (auto) 0.01 K/uL (0.00-0.02); Immature Granulocytes % (auto) 0.2 %; Lymphocytes # (auto) 1.15 K/uL (1.2-3.4); Mean Corpuscular Hemoglobin 27.1 pg (25.0-34.0); Mean Corpuscular Hgb Conc 32.2 g/dL (32.0-36.0); Mean Corpuscular Volume 84.3 fL (80.0-100.0); Monocytes % (auto) 9.4 %; Neutrophils # (auto) 2.51 K/uL (1.4-6.5); Platelet Count 480 K/uL (130-400); RDW Coefficient of Variation 14.3 % (11.5-14.5); RDW Standard Deviation 43.9 fL (36.4-46.3); Red Blood Count 3.76 M/uL (4.63-6.08); White Blood Count 4.26 K/ul (4.8-10.8)
[2022-05-03] MEDS: LANTUS PER UNIT CHARGE SQ SCH (08:58)
[2022-05-03] MEDS: INSULIN ASPART PER UNIT SC SCH ×4 (08:58→20:29)
[2022-05-03] MEDS ORDERED: POTASSIUM CHLORIDE CRTAB 20 MEQ TABCR PO SCH (09:00)
[2022-05-03] MEDS: ACETAMINOPHEN 325 MG TAB PO PRN (09:03)
[2022-05-03 09:08] LABS: Prothrombin Time 20.5 Seconds (9.0-12.0)
[2022-05-03 09:23] LABS: BUN Creatinine Ratio 18.8 (10-20); Calcium 8.9 mg/dl (8.5-10.1); Creatinine Clr Calc Pharmacy 79.7 ml/min; Est GFR (African American) 94.6 ml/min; Est GFR (Non-African American) 81.6 ml/min; Magnesium 1.7 mg/dl (1.7-2.4); Potassium 4.1 mmol/L (3.5-5.1)
--- NOTE | 2022-05-03 11:11 | Cardiology Progress Note ---
Date of Service May 03, 2022 Assessment & Plan (1) Syncope and collapse: (2) Chest pain: (3) Elevated troponin: (4) CAD (coronary artery disease): (5) Pacemaker: (6) Tricuspid valve replaced: Plan ASSESSMENT/PLAN: 1. Syncope: Presentation consistent with orthostatic etiology. Alpha blockers and Lasix discontinued yesterday. Hopefully symptoms improved today however he was still in bed this morning. Diarrhea may have also played a role. Recommended compression stockings. Adequate hydration. If conservative measures fail, could consider medical therapy. 2. Atypical chest pain: Has longstanding chest pain. Chest pain is not consistent with ischemic heart disease as he is having prolonged episodes and is rather constant. There is a pleuritic component, which was also described in the past, prior to tricuspid valve replacement. 3. Elevated troponin: He did not rule in for myocardial infarction. Could be due to demand ischemia in the setting of syncope where presumed orthostatic hypotension, which could cause poor perfusion transiently. 4. Tricuspid valve replacement: Details of recent [facility] surgery not known. Followed up with CT surgery [facility] last week of April and has a follow-up appointment in June per patient report. Tricuspid valve replacement appears to be functioning appropriately. Records have been obtained from [facility] but were not located for review, apparently pending scanning into EHR. Records requested again today. SBE prophylaxis for dental procedures. On anticoagulation therapy. 5. Pacemaker: Indication for pacemaker placement not known at the time of this consult. Records from [facility] are apparently being scanned into EHR for review, but still not available. Records formally requested again today. Should follow with electrophysiology for long-term management. Has been seen in the office by Dr. Caro in the past. 6. CAD s/p LAD PCI 2000: No angina. Continue aspirin 81 mg daily. Continue high-intensity statin therapy and beta-carmen as tolerated. Nonobstructive CAD in February of 2022 pre valve catheterization. 7. Disposition: Please call with any other questions or concerns. I will be away from the hospital this week. On-call bridge crane operator will be Dr. Anderson. Follow-up in the outpatient setting with electrophysiology for device management. Admission and Anticipated Discharge Date Admission Date: May 02, 2022 Subjective Continues to have chest discomfort. He was sleeping when entering the room but after awakened, stated that he is having left-sided chest discomfort but more laterally displaced today rather than substernal. He states that is the same pain and has been mostly constant. There is a pleuritic component but not positional. He reaffirms that this is the same chest discomfort that he has been experiencing, although today it appears to have changed locations somewhat. He denies shortness of breath, orthopnea, palpitations, syncope, or edema. He admits that he has not yet been out of bed and orthostatic vitals were not yet checked when he was seen earlier this morning. Two penitentiary guards were present at the bedside. Physical Exam Physical Exam: Gen.: No acute distress. Alert and oriented. HEENT: Anicteric sclera. Neck: No JVD. Cardiac: No ventricular heave. Regular. Normal S1-S2. No murmurs, rubs, or gallops. Pulmonary: Clear to auscultation bilaterally without wheezes, rales, or rhonchi. Abdomen: Soft, nontender, nondistended, with normoactive bowel sounds. No bruits noted. Extremities: 2+ radial pulses bilaterally. 2+ posterior tibialis pulses bilaterally. No edema or cyanosis. Psychiatric: Affect appears appropriate. Chest: Nontender to palpation. Results & Data ([facility]) Vital Signs (Past 12 Hours) Vital Signs Temp Pulse Pulse Resp BP Pulse Ox O2 Del Method 05/03/22 07:42 36.9 C 90 18 116/81 95 Room Air 05/03/22 07:12 89 05/03/22 03:18 37 C 90 16 101/69 95 Room Air 05/02/22 23:06 89 Intake & Output 05/01/22 05/02/22 05/03/22 05/04/22 06:59 06:59 06:59 06:59 Intake Total 1850 / 1850 1926.333 / 1926.333 Output Total 600 / 600 1575 / 1575 Balance 1250 / 1250 351.333 / 351.333 Weight 173 lb 11.588 oz 174 lb 2.643 oz Laboratory Results Laboratory Results - last 24 hr 05/02/22 05/02/22 05/02/22 11:41 16:55 20:02 WBC RBC Hgb Hct MCV MCH MCHC RDW Std Deviation RDW Coeff of Eliana Plt Count MPV Immature Gran % (Auto) Neut % (Auto) Lymph % (Auto) [place] % (Auto) Eos % (Auto) Baso % (Auto) Neut # (Auto) Lymph # (Auto) [place] # (Auto) Eos # (Auto) Baso # (Auto) Immature Gran # (Auto) PT INR Sodium Potassium Chloride Carbon Dioxide Anion Gap BUN Creatinine Est Cr Clr Drug Dosing Est GFR ( Amer) Est GFR (Non-Af Amer) BUN/Creatinine Ratio Glucose POC Glucose 92 105 H 114 H Calcium Magnesium Stl C. cayetanensis PCR Stool Rotavirus A PCR Stl Adenov F PCR Stool Astrovirus (PCR) Stool Campylobacter PCR Stl C. diff Tox A/B PCR Stool Cryptosporidium PCR Stl E.coli Shiga Tox PCR Stl Enterotoxigenic E PCR Stool EPEC (PCR) Stool EAEC (PCR) Stl E. histolytica PCR Stool Giardia Lamblia PCR Stool Salmonella PCR Stool Sapovirus (PCR) Stl P. shigelloides PCR Stl Shigella/EIEC PCR St Y.enterocolitica PCR Stool Vibrio (PCR) Stl Vibrio cholerae PCR Stl Norovirus GI/GII PCR 05/02/22 05/03/22 05/03/22 23:20 07:31 08:17 WBC 4.26 L RBC 3.76 L Hgb 10.2 L Hct 31.7 L MCV 84.3 MCH 27.1 MCHC 32.2 RDW Std Deviation 43.9 RDW Coeff of Eliana 14.3 Plt Count 480 H MPV 8.0 L Immature Gran % (Auto) 0.2 Neut % (Auto) 59.0 Lymph % (Auto) 27.0 [place] % (Auto) 9.4 Eos % (Auto) 3.5 Baso % (Auto) 0.9 Neut # (Auto) 2.51 Lymph # (Auto) 1.15 L [place] # (Auto) 0.40 Eos # (Auto) 0.15 Baso # (Auto) 0.04 Immature Gran # (Auto) 0.01 PT INR Sodium Potassium Chloride Carbon Dioxide Anion Gap BUN Creatinine Est Cr Clr Drug Dosing Est GFR ( Amer) Est GFR (Non-Af Amer) BUN/Creatinine Ratio Glucose POC Glucose 117 H Calcium Magnesium Stl C. cayetanensis PCR Not Detected Stool Rotavirus A PCR Not Detected Stl Adenov F PCR Not Detected Stool Astrovirus (PCR) Not Detected Stool Campylobacter PCR Not Detected Stl C. diff Tox A/B PCR Not Detected Stool Cryptosporidium PCR Not Detected Stl E.coli Shiga Tox PCR Not Detected Stl Enterotoxigenic E PCR Not Detected Stool EPEC (PCR) Not Detected Stool EAEC (PCR) Not Detected Stl E. histolytica PCR Not Detected Stool Giardia Lamblia PCR Not Detected Stool Salmonella PCR Not Detected Stool Sapovirus (PCR) Not Detected Stl P. shigelloides PCR Not Detected Stl Shigella/EIEC PCR Not Detected St Y.enterocolitica PCR Not Detected Stool Vibrio (PCR) Not Detected Stl Vibrio cholerae PCR Not Detected Stl Norovirus GI/GII PCR Not Detected 05/03/22 05/03/22 08:17 08:17 WBC RBC Hgb Hct MCV MCH MCHC RDW Std Deviation RDW Coeff of Eliana Plt Count MPV Immature Gran % (Auto) Neut % (Auto) Lymph % (Auto) [place] % (Auto) Eos % (Auto) Baso % (Auto) Neut # (Auto) Lymph # (Auto) [place] # (Auto) Eos # (Auto) Baso # (Auto) Immature Gran # (Auto) PT 20.5 H INR 2.0 H Sodium 137 Potassium 4.1 Chloride 105 Carbon Dioxide 23 Anion Gap 9 BUN 19 Creatinine 1.01 Est Cr Clr Drug Dosing 79.7 Est GFR ( Amer) 94.6 Est GFR (Non-Af Amer) 81.6 BUN/Creatinine Ratio 18.8 Glucose 108 H POC Glucose Calcium 8.9 Magnesium 1.7 Stl C. cayetanensis PCR Stool Rotavirus A PCR Stl Adenov F 40/41 PCR Stool Astrovirus (PCR) Stool Campylobacter PCR Stl C. diff Tox A/B PCR Stool Cryptosporidium PCR Stl E.coli Shiga Tox PCR Stl Enterotoxigenic E PCR Stool EPEC (PCR) Stool EAEC (PCR) Stl E. histolytica PCR Stool Giardia Lamblia PCR Stool Salmonella PCR Stool Sapovirus (PCR) Stl P. shigelloides PCR Stl Shigella/EIEC PCR St Y.enterocolitica PCR Stool Vibrio (PCR) Stl Vibrio cholerae PCR Stl Norovirus GI/GII PCR Diagnostic Findings Telemetry personally reviewed: Av pacing. Medications Administered Current Inpatient Medications Acetaminophen (Acetaminophen 325 Mg Tab) 650 mg PO Q4H PRN PRN Reason: Pain or Fever Stop: 05/31/22 19:34 Last Admin: 05/03/22 09:03 Dose: 650 mg Albuterol (Albuterol Hfa 8 Gm Inhaler) 2 puffs INH QID PRN PRN Reason: Shortness Of Breath Stop: 05/31/22 19:34 Allopurinol (Allopurinol 100 Mg Tab) 100 mg PO QAM [facility] Stop: 06/01/22 08:59 Last Admin: 05/03/22 08:51 Dose: 100 mg Aripiprazole (Aripiprazole 1 Mg/Ml Oral Soln 150 Ml Btl) 2 mg PO DAILY [facility] Stop: 06/01/22 08:59 Last Admin: 05/03/22 08:49 Dose: 2 mg Aspirin (Aspirin 81 Mg Ectab) 81 mg PO QAM [facility] Stop: 06/01/22 08:59 Last Admin: 05/03/22 08:51 Dose: 81 mg Dextrose (Dextrose 50% 50 Ml Syringe) 25 - 50 ml IV UD PRN; Protocol PRN Reason: Hypoglycemia Protocol Stop: 05/31/22 19:34 Duloxetine HCl (Duloxetine Hcl 60 Mg Cap) 60 mg PO BID [facility] Stop: 05/31/22 20:59 Last Admin: 05/03/22 08:50 Dose: 60 mg Famotidine (Famotidine 20 Mg Tab) 20 mg PO BID [facility] Stop: 05/31/22 20:59 Last Admin: 05/03/22 08:50 Dose: 20 mg Finasteride (Finasteride 5 Mg Tab) 5 mg PO QAM [facility] Stop: 06/01/22 08:59 Last Admin: 05/03/22 08:51 Dose: 5 mg Fluticasone Furoate (Fluticasone Furoate 200mcg 14 Puffs/Inhaler) 1 puffs INH PM LIN; Protocol Stop: 05/31/22 20:59 Last Admin: 05/02/22 21:42 Dose: 1 puffs Glucagon (Glucagon For Inj 1 Mg Vial) 1 mg SQ UD PRN; Protocol PRN Reason: Hypoglycemia Protocol Stop: 05/31/22 19:34 Glucose (Glucose 40% Gel 15 Gm Tube) 15 - 30 gm PO UD PRN; Protocol PRN Reason: Hypoglycemia Protocol Stop: 05/31/22 19:34 Glucose (Glucose 10 Tab/Tube) 4 - 8 tab PO UD PRN; Protocol PRN Reason: Hypoglycemia Treatment Stop: 05/31/22 19:34 Insulin Aspart (Insulin Aspart Per Unit) 0 units SC ACHS LIN Stop: 05/31/22 20:59 Last Admin: 05/03/22 08:58 Dose: 6 units Insulin Glargine (Lantus Per Unit Charge) 11 units SQ DAILY LIN Stop: 06/01/22 08:59 Last Admin: 05/03/22 08:58 Dose: 11 units Metoprolol Tartrate (Metoprolol Tartrate 25 Mg Tab) 12.5 mg PO BID LIN Stop: 05/31/22 20:59 Last Admin: 05/03/22 08:50 Dose: 12.5 mg Miscellaneous (Carbohydrates For Hypoglycemia ) 15 - 30 gm PO UD PRN PRN Reason: Hypoglycemia Protocol Stop: 05/31/22 19:34 Pantoprazole Sodium (Pantoprazole 40 Mg Tab) 40 mg PO DAILY LIN Stop: 06/01/22 08:59 Last Admin: 05/03/22 08:51 Dose: 40 mg Rosuvastatin Calcium (Rosuvastatin Calcium 20 Mg Tab) 20 mg PO HS LIN Stop: 05/31/22 20:59 Last Admin: 05/02/22 21:42 Dose: 20 mg PG Care Time/CCT Total # of Minutes Spent Total Time Spent with Patient: Total time spent is greater than 50% in coordination of care (as documented) at patient's floor/unit and/or counseling patient: Coding Level of Care Code 00291 Subseq Hosp Care Lvl 3 Diagnoses Syncope and collapse R55 Chest pain R07.9 Elevated troponin R77.8 CAD (coronary artery disease) I25.10 Pacemaker Z95.0 Tricuspid valve replaced Z95.4
--- NOTE | 2022-05-03 14:04 | Hospitalist Progress Note ---
Date of Service May 03, 2022 Assessment & Plan (1) Syncope and collapse: Plan: Patient with syncope and collapse on day of admission. SOunds like orthostasis and he was unable to complete orthostatic vitals on 05/02 due to severe lightheadedness with standing. SBP did drop 10 points alone just from going from lying to sitting He has had this issue ongoing for some time Likely exacerbated by current volume status with diarrhea and multiple medications effecting BP and alpha blockers as well as lasix use Now orthostatics are much improved on 05/03 after receiving IV fluid hydration, stopping Lasix, Flomax, and prazosin He continues to feel somewhat dizzy but is not passing out with standing. - Interrogated pacemaker see below- no AF/AT VT/VF episodes - checked random cortisol and normal, AM cortisol normal -No further IV fluids needed, he is eating and drinking -Have discontinued lasix, FLomax and Prazosin-would not restart any of these for now - no other focal deficits and without loss of bowel or bladder and without confusion following therefore not likely to be seizure. Also seen by Neuro last admission who agreed not seizure -I do not think this is vertigo-discontinued meclizine -added DEXTER hose for orthostasis and would continue these on discharge -continue daily orthostatics -Discontinued potassium as no longer on Lasix (2) Chest pain: Plan: With chronic chest pain, proven to be nonischemic in the past with cardiac cath Does have mildly elevated troponin here at 100/100/92, ECHO without WMAs, no evidence of pericarditis ECG paced -did have hiatal hernia large that was repaired in 02/2022 -now s/p midline sternotomy and could be having MSK pain from this -Also complains of pain in the left ribs-atelectasis seen on chest x-ray-add incentive spirometry -Can take tylenol as needed for pain (3) Elevated troponin: Plan: as above, noncardiac, ECG paced likely demand ischemia from orthostasis, syncope, in setting of recent valve repair cath in 02/22- with mild LAD in stent stenosis - ECHO without WMAs - Cardiology consulted- appreciated (4) Elevated INR: Plan: INR elevated 3.4 on warfarin following his [place] [facility] [place] Goal 1.5-2.0 reported INR down to 2.0 today after holding warfarin x2 days -Restart warfarin at lower dose of 2.0 Mg daily (home dose was 2.5 Mg) -follow INR in the AM (5) CAD (coronary artery disease): Plan: h/o LAD stent remotely - continue asa - continue statin, metoprolol (6) Diabetes mellitus: Plan: Continue basal bolus insulin goal <180 mg/dl (7) BPH w urinary obs/LUTS: Plan: on high doses of flomax 0.8mg and prazosin (perhaps for Psych purposes?)-I had recommended the prazosin be discontinued in February but somehow has been restarted given profound orthostasis--> HOLD Flomax for now and dc Prazosin if has issues with urinary retention, can restart FLomax 0.4 -continue finasteride does not follow with Urology (8) GERD (gastroesophageal reflux disease): Plan: GERD with esophagitis - continue H2 and PPI (9) Pacemaker: Plan: Pacemaker is [email or web address] XT MRI [id number] SERIAL number [id number] - LEADS [id number] capsure EPI - MR conditional - NO - DDD with mode switch at 171 - low rate 90 upper track 120 - AT/AF >170 - VT >150 This was inserted following biatrial MAZE and clipping of left atrial appendage (10) Tricuspid valve replaced: Plan: [place] [facility] [place] placement- bioprosthesis - On Warfarin as above - goal reported 1.5-2.0 -Cardiology recommends SBE prophylaxis for any dental procedures in the future (11) Anemia: Plan: Hemoglobin mildly low but stable from previous at 10.2 Likely recent open heart surgery contributing Follow CBC in the morning No evidence of bleeding (12) Diarrhea: Plan: Had prior to admission Stool PCR panel is negative Seems to be resolving Plan Dispo-continued stay on [facility], but improving. Plan to discharge back to snf when dizziness is improved and able to ambulate. Admission and Anticipated Discharge Date Admission Date: May 02, 2022 Subjective Patient reports continuing to feel some dizziness with standing, however his orthostatic vital signs were negative today. He only had 1 loose stool last night and none so far today and so diarrhea is resolving. He complains of some pain under the left ribs that is ongoing. He has not been out of bed at all since admission. Telemetry with paced rhythm in the Review of Systems Review of Systems: All systems reviewed & are unremarkable except as noted in HPI & below Physical Exam Constitutional: WD/WN, vitals as above Eyes: + anicteric sclerae Neck: trachea midline, no thyromegaly Respiratory: normal respiratory effort, lungs clear to auscultation Cardiovascular: RRR, no murmur, no edema Chest (Breasts): Chest: + pacemaker; + abnormal inspection of chest (midline sternotomy scar healing) Gastrointestinal (Abdomen): normal bowel sounds, soft, nontender, no hepatosplenomegaly Musculoskeletal: Extremities: extremities normal to inspection; no cyanosis and no clubbing Skin: no rashes, warm and dry Neurologic: moves all extremities and awake; no focal motor deficits Psychiatric: A+Ox3, euthymic affect Lymphatic: no lymphedema Results & Data Results & Data ([facility]) Vital Signs (Past 12 Hours) Vital Signs Temp Pulse Pulse Resp BP Pulse Ox O2 Del Method 05/03/22 07:42 36.9 C 90 18 116/81 95 Room Air 05/03/22 07:12 89 05/03/22 03:18 37 C 90 16 101/69 95 Room Air Laboratory Results 05/03/22 05/03/22 05/03/22 Range/Units 11:41 08:17 08:17 WBC (4.8-10.8) K/ul RBC (4.63-6.08) M/uL Hgb (14.0-18.0) g/dl Hct (40.1-51.0) % MCV (80.0-100.0) fL MCH (25.0-34.0) pg MCHC (32.0-36.0) g/dL RDW Std Deviation (36.4-46.3) fL RDW Coeff of Eliana (11.5-14.5) % Plt Count (130-400) K/uL MPV (9.4-12.4) fL Immature Gran % (Auto) % Neut % (Auto) % Lymph % (Auto) % [place] % (Auto) % Eos % (Auto) % Baso % (Auto) % Neut # (Auto) (1.4-6.5) K/uL Lymph # (Auto) (1.2-3.4) K/uL [place] # (Auto) (0.24-0.82) K/uL Eos # (Auto) (0-0.50) K/uL Baso # (Auto) (0-0.2) K/uL Immature Gran # (Auto) (0.00-0.02) K/uL PT 20.5 H (9.0-12.0) Seconds INR 2.0 H (0.9-1.1) Sodium 137 (136-145) mmol/L Potassium 4.1 (3.5-5.1) mmol/L Chloride 105 (98-107) mmol/L Carbon Dioxide 23 (21-32) mmol/L Anion Gap 9 (3-11) BUN 19 (6-23) mg/dl Creatinine 1.01 (0.6-1.4) mg/dl Est Cr Clr Drug Dosing 79.7 ml/min Est GFR ( Amer) 94.6 ml/min Est GFR (Non-Af Amer) 81.6 ml/min BUN/Creatinine Ratio 18.8 (10-20) Glucose 108 H (70-99(Fasting)) mg/dl POC Glucose 150 H (70-99) mg/dl Calcium 8.9 (8.5-10.1) mg/dl Magnesium 1.7 (1.7-2.4) mg/dl Stl C. cayetanensis PCR (NotDetected) Stool Rotavirus A PCR (NotDetected) Stl Adenov F 40/41 PCR (NotDetected) Stool Astrovirus (PCR) (NotDetected) Stool Campylobacter PCR (NotDetected) Stl C. diff Tox A/B PCR (NotDetected) Stool Cryptosporidium PCR (NotDetected) Stl E.coli Shiga Tox PCR (NotDetected) Stl Enterotoxigenic E PCR (NotDetected) Stool EPEC (PCR) (NotDetected) Stool EAEC (PCR) (NotDetected) Stl E. histolytica PCR (NotDetected) Stool Giardia Lamblia PCR (NotDetected) Stool Salmonella PCR (NotDetected) Stool Sapovirus (PCR) (NotDetected) Stl P. shigelloides PCR (NotDetected) Stl Shigella/EIEC PCR (NotDetected) St Y.enterocolitica PCR (NotDetected) Stool Vibrio (PCR) (NotDetected) Stl Vibrio cholerae PCR (NotDetected) Stl Norovirus GI/GII PCR (NotDetected) 05/03/22 05/03/22 05/02/22 Range/Units 08:17 07:31 23:20 WBC 4.26 L (4.8-10.8) K/ul RBC 3.76 L (4.63-6.08) M/uL Hgb 10.2 L (14.0-18.0) g/dl Hct 31.7 L (40.1-51.0) % MCV 84.3 (80.0-100.0) fL MCH 27.1 (25.0-34.0) pg MCHC 32.2 (32.0-36.0) g/dL RDW Std Deviation 43.9 (36.4-46.3) fL RDW Coeff of Eliana 14.3 (11.5-14.5) % Plt Count 480 H (130-400) K/uL MPV 8.0 L (9.4-12.4) fL Immature Gran % (Auto) 0.2 % Neut % (Auto) 59.0 % Lymph % (Auto) 27.0 % [place] % (Auto) 9.4 % Eos % (Auto) 3.5 % Baso % (Auto) 0.9 % Neut # (Auto) 2.51 (1.4-6.5) K/uL Lymph # (Auto) 1.15 L (1.2-3.4) K/uL [place] # (Auto) 0.40 (0.24-0.82) K/uL Eos # (Auto) 0.15 (0-0.50) K/uL Baso # (Auto) 0.04 (0-0.2) K/uL Immature Gran # (Auto) 0.01 (0.00-0.02) K/uL PT (9.0-12.0) Seconds INR (0.9-1.1) Sodium (136-145) mmol/L Potassium (3.5-5.1) mmol/L Chloride (98-107) mmol/L Carbon Dioxide (21-32) mmol/L Anion Gap (3-11) BUN (6-23) mg/dl Creatinine (0.6-1.4) mg/dl Est Cr Clr Drug Dosing ml/min Est GFR ( Amer) ml/min Est GFR (Non-Af Amer) ml/min BUN/Creatinine Ratio (10-20) Glucose (70-99(Fasting)) mg/dl POC Glucose 117 H (70-99) mg/dl Calcium (8.5-10.1) mg/dl Magnesium (1.7-2.4) mg/dl Stl C. cayetanensis PCR Not Detected (NotDetected) Stool Rotavirus A PCR Not Detected (NotDetected) Stl Adenov F 40/41 PCR Not Detected (NotDetected) Stool Astrovirus (PCR) Not Detected (NotDetected) Stool Campylobacter PCR Not Detected (NotDetected) Stl C. diff Tox A/B PCR Not Detected (NotDetected) Stool Cryptosporidium PCR Not Detected (NotDetected) Stl E.coli Shiga Tox PCR Not Detected (NotDetected) Stl Enterotoxigenic E PCR Not Detected (NotDetected) Stool EPEC (PCR) Not Detected (NotDetected) Stool EAEC (PCR) Not Detected (NotDetected) Stl E. histolytica PCR Not Detected (NotDetected) Stool Giardia Lamblia PCR Not Detected (NotDetected) Stool Salmonella PCR Not Detected (NotDetected) Stool Sapovirus (PCR) Not Detected (NotDetected) Stl P. shigelloides PCR Not Detected (NotDetected) Stl Shigella/EIEC PCR Not Detected (NotDetected) St Y.enterocolitica PCR Not Detected (NotDetected) Stool Vibrio (PCR) Not Detected (NotDetected) Stl Vibrio cholerae PCR Not Detected (NotDetected) Stl Norovirus GI/GII PCR Not Detected (NotDetected) 05/02/22 05/02/22 Range/Units 20:02 16:55 WBC (4.8-10.8) K/ul RBC (4.63-6.08) M/uL Hgb (14.0-18.0) g/dl Hct (40.1-51.0) % MCV (80.0-100.0) fL MCH (25.0-34.0) pg MCHC (32.0-36.0) g/dL RDW Std Deviation (36.4-46.3) fL RDW Coeff of Eliana (11.5-14.5) % Plt Count (130-400) K/uL MPV (9.4-12.4) fL Immature Gran % (Auto) % Neut % (Auto) % Lymph % (Auto) % [place] % (Auto) % Eos % (Auto) % Baso % (Auto) % Neut # (Auto) (1.4-6.5) K/uL Lymph # (Auto) (1.2-3.4) K/uL [place] # (Auto) (0.24-0.82) K/uL Eos # (Auto) (0-0.50) K/uL Baso # (Auto) (0-0.2) K/uL Immature Gran # (Auto) (0.00-0.02) K/uL PT (9.0-12.0) Seconds INR (0.9-1.1) Sodium (136-145) mmol/L Potassium (3.5-5.1) mmol/L Chloride (98-107) mmol/L Carbon Dioxide (21-32) mmol/L Anion Gap (3-11) BUN (6-23) mg/dl Creatinine (0.6-1.4) mg/dl Est Cr Clr Drug Dosing ml/min Est GFR ( Amer) ml/min Est GFR (Non-Af Amer) ml/min BUN/Creatinine Ratio (10-20) Glucose (70-99(Fasting)) mg/dl POC Glucose 114 H 105 H (70-99) mg/dl Calcium (8.5-10.1) mg/dl Magnesium (1.7-2.4) mg/dl Stl C. cayetanensis PCR (NotDetected) Stool Rotavirus A PCR (NotDetected) Stl Adenov F 40/41 PCR (NotDetected) Stool Astrovirus (PCR) (NotDetected) Stool Campylobacter PCR (NotDetected) Stl C. diff Tox A/B PCR (NotDetected) Stool Cryptosporidium PCR (NotDetected) Stl E.coli Shiga Tox PCR (NotDetected) Stl Enterotoxigenic E PCR (NotDetected) Stool EPEC (PCR) (NotDetected) Stool EAEC (PCR) (NotDetected) Stl E. histolytica PCR (NotDetected) Stool Giardia Lamblia PCR (NotDetected) Stool Salmonella PCR (NotDetected) Stool Sapovirus (PCR) (NotDetected) Stl P. shigelloides PCR (NotDetected) Stl Shigella/EIEC PCR (NotDetected) St Y.enterocolitica PCR (NotDetected) Stool Vibrio (PCR) (NotDetected) Stl Vibrio cholerae PCR (NotDetected) Stl Norovirus GI/GII PCR (NotDetected) PG Care Time/CCT Total # of Minutes Spent Total Time Spent with Patient: Total time spent is greater than 50% in coordination of care (as documented) at patient's floor/unit and/or counseling patient: Coding Level of Care Code 13324 Subseq Hosp Care Lvl 3 Diagnoses Syncope and collapse R55 Chest pain R07.9 Elevated troponin R77.8 Elevated INR R79.1 CAD (coronary artery disease) I25.10 Diabetes mellitus E11.9 BPH w urinary obs/LUTS N40.1; N13.8 GERD (gastroesophageal reflux disease) K21.9 Pacemaker Z95.0 Tricuspid valve replaced Z95.4 Anemia D64.9 Diarrhea R19.7
[2022-05-03] MEDS: WARFARIN SOD 2 MG TAB PO SCH (17:03)
--- NOTE | 2022-05-03 17:50 | Electrocardiogram Report ---
Test Reason : Blood Pressure : / mmHG Vent. Rate : 089 BPM Atrial Rate : 089 BPM P-R Int : 000 ms QRS Dur : 152 ms QT Int : 148 ms P-R-T Axes : 086 089 000 degrees QTc Int : 180 ms AV dual-paced rhythm Abnormal ECG When compared with ECG of 01-MAY-2022 11:51, No significant change Confirmed by Tomás Alicia ([id number]) on 05/03/2022 5:49:58 PM Referred By: [facility] Confirmed By:Tomás Alicia
--- NOTE | 2022-05-03 18:38 | Electrocardiogram Report ---
Test Reason : Blood Pressure : / mmHG Vent. Rate : 088 BPM Atrial Rate : 088 BPM P-R Int : 000 ms QRS Dur : 038 ms QT Int : 178 ms P-R-T Axes : 060 107 191 degrees QTc Int : 216 ms AV dual-paced rhythm Abnormal ECG When compared with ECG of 01-MAY-2022 17:25, No significant change Confirmed by Tomás Alicia ([id number] on 05/03/2022 6:37:41 PM Referred By: [facility] Confirmed By:Tomás Alicia
--- NOTE | 2022-05-03 18:38 | Electrocardiogram Report ---
Test Reason : Blood Pressure : / mmHG Vent. Rate : 088 BPM Atrial Rate : 088 BPM P-R Int : 000 ms QRS Dur : 134 ms QT Int : 230 ms P-R-T Axes : 000 163 019 degrees QTc Int : 279 ms AV dual-paced rhythm Abnormal ECG When compared with ECG of 02-MAY-2022 05:29, No significant change Confirmed by Tomás Alicia ([id number]) on 05/03/2022 6:38:17 PM Referred By: [facility] Confirmed By:Tomás Alicia
[2022-05-03] MEDS: ROSUVASTATIN CALCIUM 20 MG TAB PO SCH (19:47)
[2022-05-03] MEDS: FLUTICASONE FUROATE 200MCG 14 PUFFS/INHALER INH SCH (19:48)
[2022-05-04 07:23] LABS: Basophils # (auto) 0.03 K/uL (0-0.2); Basophils % (auto) 0.8 %; Eosinophils # (auto) 0.16 K/uL (0-0.50); Hematocrit (blood only) 30.3 % (40.1-51.0); Hemoglobin 9.8 g/dl (14.0-18.0); Immature Granulocytes # (auto) 0.01 K/uL (0.00-0.02); Immature Granulocytes % (auto) 0.3 %; Lymphocytes # (auto) 1.05 K/uL (1.2-3.4); Lymphocytes % (auto) 26.4 %; Mean Corpuscular Hemoglobin 27.5 pg (25.0-34.0); Mean Corpuscular Hgb Conc 32.3 g/dL (32.0-36.0); Mean Corpuscular Volume 84.9 fL (80.0-100.0); Mean Platelet Volume 8.1 fL (9.4-12.4); Monocytes # (auto) 0.42 K/uL (0.24-0.82); Monocytes % (auto) 10.6 %; Neutrophils # (auto) 2.31 K/uL (1.4-6.5); Neutrophils % (auto) 57.9 %; Platelet Count 445 K/uL (130-400); RDW Coefficient of Variation 14.2 % (11.5-14.5); RDW Standard Deviation 44.3 fL (36.4-46.3); Red Blood Count 3.57 M/uL (4.63-6.08); White Blood Count 3.98 K/ul (4.8-10.8)
[2022-05-04 07:36] LABS: INR 1.5 (0.9-1.1); Prothrombin Time 15.9 Seconds (9.0-12.0)
[2022-05-04 07:54] LABS: BUN Creatinine Ratio 16.1 (10-20); Calcium 8.6 mg/dl (8.5-10.1); Creatinine Clr Calc Pharmacy 86.6 ml/min; Est GFR (African American) 104.5 ml/min; Est GFR (Non-African American) 90.2 ml/min; Magnesium 1.6 mg/dl (1.7-2.4); Potassium 3.7 mmol/L (3.5-5.1)
[2022-05-04] MEDS: METOPROLOL TARTRATE 25 MG TAB PO SCH ×2 (09:03→19:44)
[2022-05-04] MEDS: DULoxetine HCL 60 MG CAP PO SCH ×2 (09:03→19:43)
[2022-05-04] MEDS: FAMOTIDINE 20 MG TAB PO SCH ×2 (09:03→19:44)
[2022-05-04] MEDS: ASPIRIN 81 MG ECTAB PO SCH (09:04)
[2022-05-04] MEDS: FINASTERIDE 5 MG TAB PO SCH (09:04)
[2022-05-04] MEDS: ARIPIprazole 1 MG/ML ORAL SOLN 150 ML BTL PO SCH (09:05)
[2022-05-04] MEDS: allopurinoL 100 MG TAB PO SCH (09:05)
[2022-05-04] MEDS: PANTOprazole 40 MG TAB PO SCH (09:05)
[2022-05-04] MEDS: INSULIN ASPART PER UNIT SC SCH ×4 (09:08→20:33)
[2022-05-04] MEDS: LANTUS PER UNIT CHARGE SQ SCH (09:08)
[2022-05-04] MEDS: MAGNESIUM SULFATE / D5W 1 GM/100 ML BAG IV SCH ×2 (12:10→14:05)
[2022-05-04] MEDS: ACETAMINOPHEN 325 MG TAB PO PRN (12:41)
[2022-05-04] MEDS: SODIUM CHLORIDE 0.9% 500 ML IV SCH ×2 (12:46→21:20)
--- NOTE | 2022-05-04 14:35 | Hospitalist Progress Note ---
Date of Service May 04, 2022 Assessment & Plan (1) Syncope and collapse: Plan: Exact etiology not clear; considered med induced which is possible; not orthostatic; however, given diaphoretic, thrombocytosis look for infectioncan present in unusual ways; cultures, procalcitonin, observe; gentle volume (2) Chest pain: Plan: Considered atypical for CAD; observe (3) Elevated troponin: Plan: Thought to be demand ischemia, type II NSTEMI; observe (4) Elevated INR: Plan: Noted resumption of Coumadin at lower doses, follow (5) CAD (coronary artery disease): Plan: h/o LAD stent remotely - continue asa - continue statin, metoprolol (6) Diabetes mellitus: Plan: Sugars acceptableno change (7) BPH w urinary obs/LUTS: Plan: on high doses of flomax 0.8mg and prazosin (perhaps for Psych purposes?)-I had recommended the prazosin be discontinued in February but somehow has been restarted given profound orthostasis--> HOLD Flomax for now and dc Prazosin if has issues with urinary retention, can restart FLomax 0.4 -continue finasteride does not follow with Urology 05/04: Above-notedno change today (8) GERD (gastroesophageal reflux disease): Plan: GERD with esophagitis - continue H2 and PPI (9) Pacemaker: Plan: Pacemaker is [employer] [place] XT DR ESTES [id number] SERIAL number [id number] - LEADS [id number] capsure EPI - MR conditional - NO - DDD with mode switch at 171 - low rate 90 upper track 120 - AT/AF >170 - VT >150 This was inserted following biatrial MAZE and clipping of left atrial appendage (10) Tricuspid valve replaced: Plan: Done at [facility] [place] with his pacemaker placement- bioprosthesis - On Warfarin as above - goal reported 1.5-2.0 -Cardiology recommends SBE prophylaxis for any dental procedures in the future (11) Anemia: Plan: Hemoglobin mildly low but stable from previous at 10.2 Likely recent open heart surgery contributing Follow CBC in the morning No evidence of bleeding 05/04: Ferritin in a.m. (12) Diarrhea: Plan: Had prior to admission Stool PCR panel is negative Seems to be resolving 05/04: Observe; reports 1 loose stool this a.m. none yesterday Plan Observe mild leukopenia, noted thrombocytosis as above Admission and Anticipated Discharge Date Admission Date: May 02, 2022 Subjective Follow-up of syncopeno specific complaints in a.m., yesterday no bowel movements, today 1 loose like bowel movement; no clear bleeding; later, nursing reported diaphoretic; reevaluated but had no complaints and looked nondiaphoretic Physical Exam 2 Physical Exam: Constitutional and general: No acute distress, looks biologic age Head and face: No puffiness, atraumatic Eyes: No scleral icterus, extraocular movements normal Neck: Supple, no JVD Musculoskeletal: No acute joint swelling, no bony abnormalities Skin/dermatologic/integument: No rash, no purpura Hematologic and lymphatic: pallor +, no petechia Gastrointestinal/abdomen: Nondistended, soft, nonacute Neurologic: Cranial nerves intact, nonfocal Psychiatry: Awake, alert, pleasant, communicative Cardiovascular: Heart rhythm regular, no rub, no murmur, no gallop Respiratory: Chest movements equal, no use of accessory muscles, no adventitious sounds Extremities: No edema, no cyanosis Results & Data Results & Data ([facility]) Vital Signs (Past 12 Hours) Vital Signs Temp Pulse Pulse Resp BP BP Pulse Ox 05/04/22 11:33 36.8 C 88 18 117/77 98 05/04/22 07:30 89 05/04/22 07:56 37.0 C 89 18 115/84 97 05/04/22 07:45 05/04/22 03:49 37 C 89 18 115/84 98 O2 Del Method 05/04/22 11:33 Room Air 05/04/22 07:30 05/04/22 07:56 Room Air 05/04/22 07:45 Room Air 05/04/22 03:49 Room Air Laboratory Results Laboratory Results - last 24 hr 05/03/22 05/03/22 05/04/22 16:36 19:56 06:25 WBC 3.98 L RBC 3.57 L Hgb 9.8 L Hct 30.3 L MCV 84.9 MCH 27.5 MCHC 32.3 RDW Std Deviation 44.3 RDW Coeff of Eliana 14.2 Plt Count 445 H MPV 8.1 L Immature Gran % (Auto) 0.3 Neut % (Auto) 57.9 Lymph % (Auto) 26.4 [place] % (Auto) 10.6 Eos % (Auto) 4.0 Baso % (Auto) 0.8 Neut # (Auto) 2.31 Lymph # (Auto) 1.05 L [place] # (Auto) 0.42 Eos # (Auto) 0.16 Baso # (Auto) 0.03 Immature Gran # (Auto) 0.01 PT INR Sodium Potassium Chloride Carbon Dioxide Anion Gap BUN Creatinine Est Cr Clr Drug Dosing Est GFR ( Amer) Est GFR (Non-Af Amer) BUN/Creatinine Ratio Glucose POC Glucose 108 H 89 Calcium Magnesium 05/04/22 05/04/22 05/04/22 06:25 06:25 07:52 WBC RBC Hgb Hct MCV MCH MCHC RDW Std Deviation RDW Coeff of Eliana Plt Count MPV Immature Gran % (Auto) Neut % (Auto) Lymph % (Auto) [place] % (Auto) Eos % (Auto) Baso % (Auto) Neut # (Auto) Lymph # (Auto) [place] # (Auto) Eos # (Auto) Baso # (Auto) Immature Gran # (Auto) PT 15.9 H INR 1.5 H Sodium 136 Potassium 3.7 Chloride 105 Carbon Dioxide 23 Anion Gap 8 BUN 15 Creatinine 0.93 Est Cr Clr Drug Dosing 86.6 Est GFR ( Amer) 104.5 Est GFR (Non-Af Amer) 90.2 BUN/Creatinine Ratio 16.1 Glucose 110 H POC Glucose 105 H Calcium 8.6 Magnesium 1.6 L 05/04/22 11:39 WBC RBC Hgb Hct MCV MCH MCHC RDW Std Deviation RDW Coeff of Eliana Plt Count MPV Immature Gran % (Auto) Neut % (Auto) Lymph % (Auto) [place] % (Auto) Eos % (Auto) Baso % (Auto) Neut # (Auto) Lymph # (Auto) [place] # (Auto) Eos # (Auto) Baso # (Auto) Immature Gran # (Auto) PT INR Sodium Potassium Chloride Carbon Dioxide Anion Gap BUN Creatinine Est Cr Clr Drug Dosing Est GFR ( Amer) Est GFR (Non-Af Amer) BUN/Creatinine Ratio Glucose POC Glucose 97 Calcium Magnesium PG Care Time/CCT Total # of Minutes Spent Total Time Spent with Patient: Total time spent is greater than 50% in coordination of care (as documented) at patient's floor/unit and/or counseling patient: Coding Level of Care Code 19518 Subseq Hosp Care Lvl 2 Diagnoses Syncope and collapse R55 Chest pain R07.9 Elevated troponin R77.8 Elevated INR R79.1 CAD (coronary artery disease) I25.10 Diabetes mellitus E11.9 BPH w urinary obs/LUTS N40.1; N13.8 GERD (gastroesophageal reflux disease) K21.9 Pacemaker Z95.0 Tricuspid valve replaced Z95.4 Anemia D64.9 Diarrhea R19.7
[2022-05-04] MEDS: WARFARIN SOD 2 MG TAB PO SCH (16:12)
[2022-05-04] MEDS: FLUTICASONE FUROATE 200MCG 14 PUFFS/INHALER INH SCH (19:44)
[2022-05-04] MEDS: ROSUVASTATIN CALCIUM 20 MG TAB PO SCH (19:45)
[2022-05-04] MEDS ORDERED: ONDANSETRON INJ 2 MG/ML 2 ML VIAL ONE (21:14)
[2022-05-04] MEDS ORDERED: HYDROmorphone INJ 0.5 MG/0.5 ML SYR IV STA ×2 (21:43→22:21)
--- NOTE | 2022-05-04 21:47 | Communication Note ---
Date of Service: May 04, 2022 Night resident note 21:20- RN notified me that patient developed severe sudden-onset abdominal pain, nausea, and diaphoresis. Upon examination, patient had moderate/severe RUQ tenderness without rebound or guarding, moderate RLQ/LUQ/LLQ tenderness. Cardiac and respiratory exams unremarkable. Ordered a stat CT abdomen/pelvis without contrast and dialudid 0.5mg IV (instead of morphine because patient has a history of hives after receiving morphine in the past). Stat repeat troponin ordered. 22:25- upon repeat exam, patient's pain improved only to a minimal degree since receiving dilaudid. Ordered an EKG and an additional dose of dilaudid 0.5mg IV. Patient was without hives, SOB, wheezing, or other allergic symptoms after receiving dilaudid. 05/05 at 00:45- RN notified me that NG tube was unable to be placed after five attempts. Discussed with Dr. Perla who advised holding off on repeat attempts until morning when patient will be seen by general surgery. Physical exam BP 120/85 HR 88 RR 18 T afebrile O2 sat 100% on RA Gen: uncomfortable-appearing but no acute distress CV: regular rate, no murmur appreciated, extremities well-perfused, Resp: CTABL, breathing non-labored Abd: soft, nondistended, moderate/severe RUQ tenderness without rebound or guarding, moderate RLQ/LUQ/LLQ tenderness Neuro: alert, oriented, no focal deficit appreciated Diagnostics CT abdomen/pelvis stat (StatRad read, resulted around 23:00): small bowel dilation with nondistended distal small bowel, consistent with obstruction; transition point not clearly visualized hsTroponin 62.5 (down from prior of 92.8 on 05/02 in AM) Assessment 56yo male with DM2, CKD3, CAD (s/p LAD stent placement 02/2022), history of [place] (2000), history of hiatal hernia repair (02/2022), and esophagitis, originally presented to the ED after a syncopal episode, now with new-onset severe abdominal pain of unclear etiology. Differential includes GI pathology, angina vs ACS, others Plan NPO NSS increased from 50mL/hr to 100mL/hr NG tube placement ordered but unable to be placed (see update from 05/05 at 00:45 above) Holding home warfarin and starting heparin gtt d/t NPO status and d/t potential need for surgery General surgery consulted Zofran 4mg IV q4h prn nausea Matt Warren MD, PGY-3 Resident Activity Tracking Resident Involvement: Resident Care Provided and Radio Electronics Officer Coverage Note Care Provided: Adult Hospital Medicine
[2022-05-04] MEDS ORDERED: ONDANSETRON INJ 2 MG/ML 2 ML VIAL IV STA (23:05)
[2022-05-04] MEDS: ONDANSETRON INJ 2 MG/ML 2 ML VIAL IV PRN (23:06)
[2022-05-04] MEDS ORDERED: SODIUM CHLORIDE 0.9% 1000ML 1,000 ML IV SCH (23:25)
[2022-05-04] MEDS ORDERED: Heparin IV Adult Wt-Based Standard *NO* Bolus Protocol IV SCH (23:41)
[2022-05-05 00:24] LABS: Basophils # (auto) 0.03 K/uL (0-0.2); Basophils % (auto) 0.3 %; Eosinophils # (auto) 0.05 K/uL (0-0.50); Eosinophils % (auto) 0.5 %; Hematocrit (blood only) 35.2 % (40.1-51.0); Immature Granulocytes # (auto) 0.04 K/uL (0.00-0.02); Immature Granulocytes % (auto) 0.4 %; Lymphocytes # (auto) 0.78 K/uL (1.2-3.4); Lymphocytes % (auto) 8.4 %; Mean Corpuscular Hemoglobin 26.9 pg (25.0-34.0); Mean Corpuscular Hgb Conc 31.3 g/dL (32.0-36.0); Mean Corpuscular Volume 86.1 fL (80.0-100.0); Mean Platelet Volume 7.8 fL (9.4-12.4); Monocytes # (auto) 0.54 K/uL (0.24-0.82); Monocytes % (auto) 5.8 %; Neutrophils # (auto) 7.82 K/uL (1.4-6.5); Neutrophils % (auto) 84.6 %; Platelet Count 473 K/uL (130-400); RDW Standard Deviation 43.7 fL (36.4-46.3); Red Blood Count 4.09 M/uL (4.63-6.08); White Blood Count 9.26 K/ul (4.8-10.8)
[2022-05-05] MEDS: HEPARIN SODIUM/DEXTROSE 25,000 UNITS/500 ML BAG IV SCH ×2 (00:31→20:15)
[2022-05-05 00:36] LABS: INR 1.3 (0.9-1.1); Partial Thromboplastin Ratio 1.1; Prothrombin Time 14.1 Seconds (9.0-12.0)
[2022-05-05] MEDS: ACETAMINOPHEN 1,000 MG/100 ML VIAL IV SCH ×3 (01:55→17:21)
--- NOTE | 2022-05-05 02:27 | Surgery Consultation ---
Date of Consultation May 05, 2022 Assessment & Plan (1) Small bowel obstruction: I discussed with the patient at bedside his CT scan findings that appear to be consistent with a small bowel obstruction and recommended the following: Provide hydration with IV fluids (this is already been initiated) N.p.o. status has been implemented should continue I recommended to the patient that we attempt to place an NG tube. As noted in the HPI section of this chart nursing staff has attempted approximately [address] NG tube and he would not allow this provider opportunity to place the tube. I have discussed with him that if his abdominal exam becomes worse or if he has further emesis this will have to be reconsidered. Recommend following serial labs. We will continue following while hospitalized Supervising Physician Co-Signing Physician Notes I personally saw and evaluated the patient with Alexandro Carmona PA-C and agree with the assessment and plan. 56-year-old male with multiple medical comorbidities and small bowel obstruction CT images and results personally viewed by me Operative note from Dr. De La Fuente in February 2022 reviewed, does have adhesions in the lower abdomen He had a recent cardiac procedure at [facility] less than 1 month ago With treated nonoperatively as he is at high risk for perioperative cardiac event Keep n.p.o., no need for NG tube at this point Will follow History of Present Illness Reason for Consultation: Small bowel obstruction Attending Physician: Liya Pitts MD History of Present Illness This is a 56-year-old male known to the service of [facility] physician group general surgery. In February of this year the patient was admitted to [facility] secondary to chest pain. He underwent a heart catheterization that showed nonobstructive coronary artery disease. He underwent a further evaluation for GI causes a of his chest pain and underwent an EGD that showed a large hiatal hernia. Because of this finding the patient underwent a laparoscopic repair of this hiatal hernia by Dr. Celso De La Fuente. The surgery was performed on 02/19/[address] De La Fuente performed repair of the hiatal hernia with a partial strict fundoplication and gastropexy. Patient was seen in follow-up by Dr. De La Fuente in the office on 03/11/2022 where patient was noted to be doing well. Patient is now admitted to [facility] secondary to syncope. He has undergone a CT scan of the head that showed no acute intracranial abnormalities or fractures. He also underwent a CT scan of the cervical spine that showed no evidence of fractures or subluxations. Chest x-ray did not show any findings concerning for pneumonia. During this admission the patient had an elevation of his troponin which was felt to be due to demand ischemia.The patient has been in the hospital since 05/01/2022. Initially did not have any complaints of abdominal pain but at approximately 9:20 PM on 05/04/2022 patient developed sudden onset of abdominal pain with nausea and vomiting. This prompted CT scan of his abdomen and pelvis that will be delineated below. I did question the patient on his abdominal pain and he does report generalized abdominal pain without any pinpoint location. He has had several episodes of emesis most recently about 1-1/2 to 2 hours ago. He notes he did have a bowel movement yesterday and he was passing flatus today. He has had prior abdominal surgeries including the hiatal hernia repair as noted above. He is also undergone an exploratory laparotomy with lysis of adhesions as well as an incisional hernia repair in the past. Not provide any more specific details concerning this. Patient has undergone CT scan of the abdomen and pelvis. This study showed small bowel dilatation approximately with the distal small bowel appearing nondistended and this was felt to be consistent with a small bowel obstruction without a clear transition point. There is no pneumatosis, portal venous gas, or free air. Hiatal hernia was noted on the study. The patient has had labs including a CBC drawn at approximately midnight on 05/05/2022. His white blood cell count was noted be normal on the study. His hemoglobin and hematocrit were 11.0 and 35.2. Platelet count was 473,000. His most recent chemistry profile was the morning of 05/04/2022 her sodium, potassium, BUN, and creatinine were normal. Because of the CT scan findings concerning for small bowel obstruction and his symptomatology, the medical service has ordered NG tube placement. The nursing staff has attempted approximately [address] NG tube without success. I did asked them about this and they note they were unable to place the NJ tube past the nasal turbinates into his pharynx. Nowhere the mention that the patient does have a history of an unspecified head injury in the past and there was concern noted on the part of the nursing staff that this may be contributing to this problem. I discussed the patient's symptoms as well as his above-noted CT scan findings with him and have expressed to him that I feel that NG tube placement may improve his abdominal symptoms. At the time of my interview with the patient he has noted that they have already tried 5 times and he refused to allow me to attempt the NG tube placement. I again reiterated to him that I feel that this modality would help his symptoms but he again refused. At the time of my interview the patient was not in any distress. He did appear to be having mild abdominal discomfort. At the time of my interview the patient was not exhibiting any active retching or emesis. Allergies Allergy/AdvReac Type Severity Reaction Status Date / Time lisinopril Allergy Severe ANAPHYLAXIS Verified 05/01/22 15:05 ibuprofen Allergy Intermediate HIVES Verified 05/01/22 15:05 morphine Allergy Intermediate HIVES Verified 05/01/22 15:05 capsaicin Allergy Unknown Unknown Verified 05/01/22 15:05 phenytoin Allergy Unknown Unknown Verified 05/01/22 15:05 Home Medications Medication Instructions Recorded Confirmed Type aspirin 81 mg tablet,delayed 81 mg PO QAM 09/23/20 05/01/22 History release calcium carbonate 600 mg-vitamin 2 tab PO BID 09/23/20 05/01/22 History D3 5 mcg (200 unit) tablet rosuvastatin 20 mg tablet 20 mg PO QPM 09/23/20 05/01/22 History ciclesonide 160 mcg/actuation 1 puff inhalation BID 07/21/21 05/01/22 History aerosol inhaler (Alvesco) docusate sodium 100 mg capsule 200 mg PO BID 07/21/21 05/01/22 History polyethylene glycol 3350 17 gram 17 g PO DAILY #1 btl 07/24/21 05/01/22 Rx oral powder packet (Miralax) albuterol sulfate 90 mcg/actuation 2 puff inhalation QID PRN 02/06/22 05/01/22 History aerosol inhaler Shortness Of Breath aripiprazole 2 mg tablet (Abilify) 2 mg PO DAILY 02/06/22 05/01/22 History duloxetine 60 mg capsule,delayed 60 mg PO BID 02/06/22 05/01/22 History release insulin glargine 100 unit/mL 11 unit subcut DAILY 02/06/22 05/01/22 History subcutaneous solution insulin regular human 100 unit/mL 1 sliding scale dose subcut 02/06/22 05/01/22 History injection solution (Novolin R USEASDIRECTD PRN DEPENDING ON BSG'S Regular U-100 Insulin) tamsulosin 0.4 mg capsule 0.8 mg PO QPM 02/06/22 05/01/22 History famotidine 20 mg tablet 20 mg PO BID #60 tabs 02/25/22 05/01/22 Rx acetaminophen 325 mg tablet 650 mg PO QID 05/01/22 05/01/22 History (Tylenol) furosemide 40 mg tablet (Lasix) 40 mg PO DAILY 05/01/22 05/01/22 History potassium chloride 20 mEq 20 meq PO BID 05/01/22 05/01/22 History tablet,extended release warfarin 2 mg tablet 2 mg PO HS 05/01/22 05/01/22 History warfarin 2.5 mg tablet 2.5 mg PO HS 05/01/22 05/01/22 History Patient History Medical History Angina pectoris Asthma Atypical chest pain Bowel obstruction CAD (coronary artery disease) Chest pain Depression DM type 2 (diabetes mellitus, type 2) Gout Head injury History of CVA (cerebrovascular accident) Hx SBO Hyperlipidemia Hypertension Iron deficiency anemia Pacemaker Peptic ulcer disease Pulmonary hypertension Sarcoidosis Skin cancer Syncope Tricuspid regurgitation Surgical History H/O exploratory laparotomy "05/31/2015 with lysis of adhesions, release of bowel obstruction, repair of incisional hernia" H/O ventral hernia repair History of back surgery History of repair of hiatal hernia (02/19/22) Laparoscopic Repair of Hiatal Hernia; partial gastric fundoplication; posterior gastropexy(Not Applicable) - Luke De La Fuente, S/P cardiac cath S/P coronary artery stent placement (05/07/13) "2000" Tricuspid valve replaced Family History Mother , age 67 Lung cancer Father , age 68 Lung cancer Brother Stroke age 55 Social History Smoking Status: Never smoker Hx Alcohol Use: No Hx Substance Use: No Preferred Language: [place]dean Communication Ability: Effective Visual Impairment: No Limitations Medical File Clerk Required: No Beliefs That Will Affect Care: None Current Living Situation: Other Current Living Situation Comment: group home - [facility] Other Information That Helps Us Care for You: No Feels Safe at Home: Yes Safety Concerns: Feels Safe At This Time Assistive Devices: None Review of Systems Constitutional: no fever and no chills Eyes: no eye pain Ear, Nose, Mouth, Throat: no ear pain Respiratory: no cough Cardiovascular: no chest pain Gastrointestinal: + abdominal pain, + nausea and + vomiting Genitourinary: no dysuria Musculoskeletal: no back pain Integumentary: no rash Neurologic: + syncope Physical Exam Constitutional: well developed and well nourished; no acute distress Eyes: no conjunctival abnormality ENMT: Ears: no hearing impairment and no external ear abnormality Oral mucosa noted to be dry Neck: trachea midline Respiratory: normal respiratory effort; no respiratory distress and no labored breathing Cardiovascular: Rate/Rhythm: regular rate and regular rhythm Gastrointestinal (Abdomen): Abdomen is noted to have mild distention with hypoactive bowel sounds. There is some slight tympany to percussion. The abdomen although mildly distended is nonrigid. Patient has a well-healed midline incision from previous exploratory laparotomy. There is generalized pain with palpation without a pinpoint location. Currently, there is no rebound tenderness or guarding. Musculoskeletal: No calf tenderness Skin: no rashes Neurologic: moves all extremities Results & Data ([facility]) Vital Signs (Past 12 Hours) Vital Signs Temp Pulse Pulse Resp BP Pulse Ox Pulse Ox 05/05/22 01:16 89 05/04/22 23:35 05/04/22 19:00 100 05/04/22 22:31 36.5 C 88 18 120/85 100 05/04/22 19:18 37.1 C 89 18 119/80 98 05/04/22 15:26 89 05/04/22 14:30 36.8 C 89 18 113/80 97 O2 Del Method O2 Del Method 05/05/22 01:16 05/04/22 23:35 Room Air 05/04/22 19:00 Room Air 05/04/22 22:31 Room Air 05/04/22 19:18 Room Air 05/04/22 15:26 05/04/22 14:30 Room Air PG Care Time/CCT Total # of Minutes Spent Total Time Spent with Patient: Total time spent is greater than 50% in coordination of care (as documented) at patient's floor/unit and/or counseling patient: Coding Level of Care Code 04161 Inpt Consult Level 5 Diagnoses Small bowel obstruction K56.609
[2022-05-05 08:09] LABS: Basophils # (auto) 0.03 K/uL (0-0.2); Basophils % (auto) 0.5 %; Eosinophils # (auto) 0.05 K/uL (0-0.50); Eosinophils % (auto) 0.9 %; Hemoglobin 10.4 g/dl (14.0-18.0); Immature Granulocytes # (auto) 0.03 K/uL (0.00-0.02); Immature Granulocytes % (auto) 0.5 %; Lymphocytes # (auto) 0.85 K/uL (1.2-3.4); Lymphocytes % (auto) 14.7 %; Mean Corpuscular Hemoglobin 26.7 pg (25.0-34.0); Mean Corpuscular Hgb Conc 31.5 g/dL (32.0-36.0); Mean Corpuscular Volume 84.8 fL (80.0-100.0); Mean Platelet Volume 8.1 fL (9.4-12.4); Monocytes # (auto) 0.48 K/uL (0.24-0.82); Monocytes % (auto) 8.3 %; Neutrophils # (auto) 4.36 K/uL (1.4-6.5); Neutrophils % (auto) 75.1 %; Platelet Count 419 K/uL (130-400); RDW Coefficient of Variation 14.3 % (11.5-14.5); RDW Standard Deviation 44.3 fL (36.4-46.3); Red Blood Count 3.89 M/uL (4.63-6.08)
[2022-05-05 08:34] LABS: Albumin Globulin Ratio 1.3 (0.9-2); Bilirubin,Total 0.3 mg/dl (0.2-1.0); Calcium 8.5 mg/dl (8.5-10.1); Creatinine Clr Calc Pharmacy 79.7 ml/min; Est GFR (African American) 94.6 ml/min; Est GFR (Non-African American) 81.6 ml/min; Globulin 3.1 gm/dl (2.5-4.0); Magnesium 2.1 mg/dl (1.7-2.4); Partial Thromboplastin Ratio 2.4; Phosphorus 3.1 mg/dl (2.5-4.9); Potassium 3.9 mmol/L (3.5-5.1); Total Protein 7.1 gm/dl (6.0-8.3)
[2022-05-05 08:40] LABS: Partial Thromboplastin Time 66.2 Seconds (21.0-31.0)
[2022-05-05 08:47] LABS: Ferritin 153.7 ng/ml (8-388)
[2022-05-05] MEDS: INSULIN ASPART PER UNIT SC SCH ×4 (09:19→20:17)
--- NOTE | 2022-05-05 09:43 | CT Scan Report ---
CT OF THE ABDOMEN AND PELVIS WITHOUT CONTRAST CLINICAL HISTORY: Acute onset abdominal pain. Nausea and vomiting. COMPARISON STUDY: CT of the abdomen and pelvis March 26, 2022. TECHNIQUE: Axial images of the abdomen and pelvis were obtained without IV contrast. Images were revi ewed in the axial, sagittal, and coronal planes. Automated exposure control was utilized for the bernardo dy. A dose lowering technique was utilized adhering to the principles of ALARA. FINDINGS: Moderate-sized hiatal hernia is noted. There is a small left pleural effusion. Minimal tree -in-bud nodules within the right middle and right lower lobes are present Pacer leads are partially i renetta. This exam is compromised given lack of IV contrast. No pneumatosis, free air or portal venous gas is present. A 2 cm lesion within the lateral segment of the liver likely reflects a hemangioma wh en correlating with prior CT. There is no biliary or pancreatic ductal dilatation. There is no hydron ephrosis. Suspected punctate bilateral renal calculi. Splenic infarct is better depicted on prior con trast enhanced CT. Multiple loops of moderately dilated fluid-filled small bowel are noted. This has developed since prior CT. There are several decompressed ileal loops. However, the terminal ileum is not significantly decompressed. No transition point is identified. Colon is mildly fluid-filled. Ther e is hyperdense material within the appendix without evidence for acute appendicitis. No lymphadenopa thy is present. No fluid collection to suggest an abscess. No acute fracture or suspicious lesion wit hin the visualized skeletal structures. IMPRESSION: 1. Multiple loops of moderately dilated fluid-filled small bowel with several decompressed ileal loop s. However, no discrete transition point identified. The findings are nonspecific. A small bowel obst ruction is favored however a nonspecific enteritis/ileus could appear similar. If persistent symptoms , a contrast-enhanced CT is suggested. 2. Small left pleural effusion. 3. Hiatal hernia. ACT 112: Negative or not required by law. Electronically signed by: Ferny England M.D. 05/05/2022 9:01 AM
[2022-05-05] MEDS: LACTATED RINGER'S 1,000 ML IV SCH ×2 (10:23→20:15)
[2022-05-05] MEDS: ONDANSETRON INJ 2 MG/ML 2 ML VIAL IV PRN (10:23)
[2022-05-05] MEDS ORDERED: HYDROmorphone INJ 0.5 MG/0.5 ML SYR IV STA (11:12)
[2022-05-05] MEDS: ASPIRIN 81 MG ECTAB PO SCH (11:13)
[2022-05-05] MEDS: ARIPIprazole 1 MG/ML ORAL SOLN 150 ML BTL PO SCH (11:13)
[2022-05-05] MEDS: allopurinoL 100 MG TAB PO SCH (11:13)
[2022-05-05] MEDS: FAMOTIDINE 20 MG TAB PO SCH ×2 (11:14→20:16)
[2022-05-05] MEDS: FINASTERIDE 5 MG TAB PO SCH (11:14)
[2022-05-05] MEDS: DULoxetine HCL 60 MG CAP PO SCH ×2 (11:14→20:16)
[2022-05-05] MEDS: METOPROLOL TARTRATE 25 MG TAB PO SCH ×2 (11:14→20:17)
[2022-05-05] MEDS: PANTOprazole 40 MG TAB PO SCH (11:14)
[2022-05-05] MEDS: LANTUS PER UNIT CHARGE SQ SCH (11:14)
--- NOTE | 2022-05-05 11:50 | Electrocardiogram Report ---
Test Reason : Blood Pressure : / mmHG Vent. Rate : 179 BPM Atrial Rate : 179 BPM P-R Int : 000 ms QRS Dur : 138 ms QT Int : 240 ms P-R-T Axes : 062 163 -13 degrees QTc Int : 414 ms AV sequential pacing When compared with ECG of 02-MAY-2022 05:31, Vent. rate has increased BY 91 BPM Confirmed by Matthieu Anderson ([id number]) on 05/05/2022 11:49:50 AM Referred By: [facility] Confirmed By:Familia Anderson
--- NOTE | 2022-05-05 14:35 | Hospitalist Progress Note ---
Date of Service May 05, 2022 Assessment & Plan (1) SBO (small bowel obstruction): Plan: New issue, surgery following; n.p.o. for now; NG was not feasible and surgery note noted; switch to lactated Ringer's but continue volume (2) Syncope and collapse: Plan: Exact etiology not clear; considered med induced which is possible; this issue resolved for now (3) Chest pain: Plan: Considered atypical for CAD; observe (4) Elevated troponin: Plan: Thought to be demand ischemia, type II NSTEMI; observe (5) CAD (coronary artery disease): Plan: h/o LAD stent remotely - continue asa - continue statin, metoprolol when able (6) Diabetes mellitus: Plan: Sugars acceptableno change (7) BPH w urinary obs/LUTS: Plan: on high doses of flomax 0.8mg and prazosin (perhaps for Psych purposes?)-I had recommended the prazosin be discontinued in February but somehow has been restarted given profound orthostasis--> HOLD Flomax for now and dc Prazosin if has issues with urinary retention, can restart FLomax 0.4 -continue finasteride does not follow with Urology 8/2: Above-notedno change today (8) GERD (gastroesophageal reflux disease): Plan: GERD with esophagitis - continue H2 and PPI 82: At present made PPI IV (9) Pacemaker: Plan: Pacemaker is [employer]tronic Nai XT DR ESTES [id number] SERIAL number [id number] - LEADS [id number] capsure EPI - MR conditional - NO - DDD with mode switch at 171 - low rate 90 upper track 120 - AT/AF >170 - VT >150 This was inserted following biatrial MAZE and clipping of left atrial appendage (10) Tricuspid valve replaced: Plan: Done at [facility] [place] with his pacemaker placement- bioprosthesis - On Warfarin as above - goal reported 1.5-2.0 -Cardiology recommends SBE prophylaxis for any dental procedures in the future 8/2: At present IV heparin given potential need for surgical intervention for SBO (11) Anemia: Plan: Hemoglobin generally stable, follow, ferritin 153 l (12) Diarrhea: Plan: Had prior to admission Stool PCR panel is negative Seems to be resolving 05/04: Observe; reports 1 loose stool this a.m. none yesterday At present see #1 Plan Observe mild thrombocytosis Admission and Anticipated Discharge Date Admission Date: May 02, 2022 Subjective Follow-up of presentation with syncope, overnight acute abdominal pain-work up suggesting small bowel obstructionstill had pain this a.m. Physical Exam Physical Exam: Constitutional and general: No acute distress, looks biologic age Head and face: No puffiness, atraumatic Eyes: No scleral icterus, extraocular movements normal Neck: Supple, no JVD Musculoskeletal: No acute joint swelling, no bony abnormalities Skin/dermatologic/integument: No rash, no purpura Hematologic and lymphatic: pallor +, no petechia Gastrointestinal/abdomen: Mildly distended, mildly tender but nonperitoneal Neurologic: Cranial nerves intact, nonfocal Psychiatry: Awake, alert, pleasant, communicative Cardiovascular: Heart rhythm regular, no rub, no murmur, no gallop Respiratory: Chest movements equal, no use of accessory muscles, no adventitious sounds Extremities: No edema, no cyanosis Results & Data Results & Data ([facility]) Vital Signs (Past 12 Hours) Vital Signs Temp Pulse Pulse Resp BP BP Pulse Ox 05/05/22 07:00 89 05/05/22 10:32 36.8 C 88 14 100/66 98 05/05/22 08:05 36.9 C 90 17 118/82 98 O2 Del Method 05/05/22 07:00 05/05/22 10:32 Room Air 05/05/22 08:05 Room Air Laboratory Results Laboratory Results - last 24 hr 05/04/22 05/04/22 05/04/22 14:50 16:47 20:11 WBC RBC Hgb Hct MCV MCH MCHC RDW Std Deviation RDW Coeff of Eliana Plt Count MPV Immature Gran % (Auto) Neut % (Auto) Lymph % (Auto) [place] % (Auto) Eos % (Auto) Baso % (Auto) Neut # (Auto) Lymph # (Auto) [place] # (Auto) Eos # (Auto) Baso # (Auto) Immature Gran # (Auto) PT INR APTT PTT Ratio Sodium Potassium Chloride Carbon Dioxide Anion Gap BUN Creatinine Est Cr Clr Drug Dosing Est GFR ( Amer) Est GFR (Non-Af Amer) POC Glucose 169 H 75 Fasting Glucose Calcium Phosphorus Magnesium Ferritin Total Bilirubin AST ALT Alkaline Phosphatase Troponin I High Sens Total Protein Albumin Globulin Albumin/Globulin Ratio Procalcitonin < 0.05 05/04/22 05/05/22 05/05/22 22:32 00:03 00:09 WBC 9.26 RBC 4.09 L Hgb 11.0 L Hct 35.2 L MCV 86.1 MCH 26.9 MCHC 31.3 L RDW Std Deviation 43.7 RDW Coeff of Eliana 14.0 Plt Count 473 H MPV 7.8 L Immature Gran % (Auto) 0.4 Neut % (Auto) 84.6 Lymph % (Auto) 8.4 [place] % (Auto) 5.8 Eos % (Auto) 0.5 Baso % (Auto) 0.3 Neut # (Auto) 7.82 H Lymph # (Auto) 0.78 L [place] # (Auto) 0.54 Eos # (Auto) 0.05 Baso # (Auto) 0.03 Immature Gran # (Auto) 0.04 H PT INR APTT PTT Ratio Sodium Potassium Chloride Carbon Dioxide Anion Gap BUN Creatinine Est Cr Clr Drug Dosing Est GFR ( Amer) Est GFR (Non-Af Amer) POC Glucose 139 H Fasting Glucose Calcium Phosphorus Magnesium Ferritin Total Bilirubin AST ALT Alkaline Phosphatase Troponin I High Sens 62.5 H* D Total Protein Albumin Globulin Albumin/Globulin Ratio Procalcitonin 05/05/22 05/05/22 05/05/22 00:09 07:42 07:42 WBC 5.80 RBC 3.89 L Hgb 10.4 L Hct 33.0 L MCV 84.8 MCH 26.7 MCHC 31.5 L RDW Std Deviation 44.3 RDW Coeff of Eliana 14.3 Plt Count 419 H MPV 8.1 L Immature Gran % (Auto) 0.5 Neut % (Auto) 75.1 Lymph % (Auto) 14.7 [place] % (Auto) 8.3 Eos % (Auto) 0.9 Baso % (Auto) 0.5 Neut # (Auto) 4.36 Lymph # (Auto) 0.85 L [place] # (Auto) 0.48 Eos # (Auto) 0.05 Baso # (Auto) 0.03 Immature Gran # (Auto) 0.03 H PT 14.1 H INR 1.3 H APTT 30.0 PTT Ratio 1.1 Sodium 136 Potassium 3.9 Chloride 108 H Carbon Dioxide 19 L Anion Gap 9 BUN 23 Creatinine 1.01 Est Cr Clr Drug Dosing 79.7 Est GFR ( Amer) 94.6 Est GFR (Non-Af Amer) 81.6 POC Glucose Fasting Glucose 128 H Calcium 8.5 Phosphorus 3.1 Magnesium 2.1 Ferritin 153.7 Total Bilirubin 0.3 AST 24 ALT 34 Alkaline Phosphatase 120 H Troponin I High Sens Total Protein 7.1 Albumin 4.0 Globulin 3.1 Albumin/Globulin Ratio 1.3 Procalcitonin 05/05/22 05/05/22 07:42 13:00 WBC RBC Hgb Hct MCV MCH MCHC RDW Std Deviation RDW Coeff of Eliana Plt Count MPV Immature Gran % (Auto) Neut % (Auto) Lymph % (Auto) [place] % (Auto) Eos % (Auto) Baso % (Auto) Neut # (Auto) Lymph # (Auto) [place] # (Auto) Eos # (Auto) Baso # (Auto) Immature Gran # (Auto) PT INR APTT 66.2 H* PTT Ratio 2.4 Sodium Potassium Chloride Carbon Dioxide Anion Gap BUN Creatinine Est Cr Clr Drug Dosing Est GFR ( Amer) Est GFR (Non-Af Amer) POC Glucose 109 H Fasting Glucose Calcium Phosphorus Magnesium Ferritin Total Bilirubin AST ALT Alkaline Phosphatase Troponin I High Sens Total Protein Albumin Globulin Albumin/Globulin Ratio Procalcitonin PG Care Time/CCT Total # of Minutes Spent Total Time Spent with Patient: Total time spent is greater than 50% in coordination of care (as documented) at patient's floor/unit and/or counseling patient: Coding Level of Care Code 77619 Subseq Hosp Care Lvl 3 Diagnoses SBO (small bowel obstruction) K56.609 Syncope and collapse R55 Chest pain R07.9 Elevated troponin R77.8 CAD (coronary artery disease) I25.10 Diabetes mellitus E11.9 BPH w urinary obs/LUTS N40.1; N13.8 GERD (gastroesophageal reflux disease) K21.9 Pacemaker Z95.0 Tricuspid valve replaced Z95.4 Anemia D64.9 Diarrhea R19.7
[2022-05-05] MEDS: FLUTICASONE FUROATE 200MCG 14 PUFFS/INHALER INH SCH (20:16)
[2022-05-05] MEDS: ROSUVASTATIN CALCIUM 20 MG TAB PO SCH (20:17)
[2022-05-06] MEDS: ACETAMINOPHEN 1,000 MG/100 ML VIAL IV SCH ×3 (01:59→17:59)
[2022-05-06] MEDS: LACTATED RINGER'S 1,000 ML IV SCH (05:25)
[2022-05-06 07:10] LABS: Basophils # (auto) 0.01 K/uL (0-0.2); Basophils % (auto) 0.3 %; Eosinophils # (auto) 0.15 K/uL (0-0.50); Eosinophils % (auto) 4.1 %; Hematocrit (blood only) 29.3 % (40.1-51.0); Hemoglobin 9.3 g/dl (14.0-18.0); Immature Granulocytes # (auto) 0.01 K/uL (0.00-0.02); Immature Granulocytes % (auto) 0.3 %; Lymphocytes # (auto) 1.08 K/uL (1.2-3.4); Lymphocytes % (auto) 29.8 %; Mean Corpuscular Hemoglobin 27.2 pg (25.0-34.0); Mean Corpuscular Hgb Conc 31.7 g/dL (32.0-36.0); Mean Corpuscular Volume 85.7 fL (80.0-100.0); Mean Platelet Volume 8.1 fL (9.4-12.4); Monocytes # (auto) 0.34 K/uL (0.24-0.82); Monocytes % (auto) 9.4 %; Neutrophils # (auto) 2.03 K/uL (1.4-6.5); Neutrophils % (auto) 56.1 %; Platelet Count 388 K/uL (130-400); RDW Coefficient of Variation 14.5 % (11.5-14.5); RDW Standard Deviation 45.2 fL (36.4-46.3); Red Blood Count 3.42 M/uL (4.63-6.08); White Blood Count 3.62 K/ul (4.8-10.8)
--- NOTE | 2022-05-06 07:44 | Surgery Progress Note ---
Date of Service May 06, 2022 Assessment & Plan (1) SBO (small bowel obstruction): Plan: Patient is passing flatus and having bowel movements without any nausea or vomiting His vitals and labs remained stable Will trial clear liquids this morning and see how he does Will follow Admission and Anticipated Discharge Date Admission Date: May 02, 2022 Subjective Patient seen and examined. Had a bowel movement yesterday and this morning. Denies any nausea or vomiting. Afebrile. Still with some abdominal discomfort. Review of Systems Constitutional: no fever and no chills Physical Exam Constitutional: WD/WN, vitals as above Gastrointestinal (Abdomen): Inspection/Auscultation: abdomen not distended Percussion/Palpation: abdomen soft; abdomen nontender, no guarding and abdomen not rigid Results & Data ([facility]) Vital Signs (Past 12 Hours) Vital Signs Temp Pulse Resp BP Pulse Ox O2 Del Method 05/06/22 07:15 Room Air 05/06/22 03:49 36.8 C 89 18 108/69 97 Room Air 05/05/22 22:46 36.9 C 89 18 103/64 98 Room Air PG Care Time/CCT Total # of Minutes Spent Total Time Spent with Patient: Total time spent is greater than 50% in coordination of care (as documented) at patient's floor/unit and/or counseling patient: Coding Level of Care Code 54137 Subseq Hosp Care Lvl 1 Diagnoses SBO (small bowel obstruction) K56.609
[2022-05-06 07:45] LABS: Albumin Globulin Ratio 1.3 (0.9-2); Albumin Level 3.4 gm/dl (3.4-5.0); Bilirubin,Total 0.4 mg/dl (0.2-1.0); Calcium 7.9 mg/dl (8.5-10.1); Creatinine Clr Calc Pharmacy 88.5 ml/min; Est GFR (African American) 107.3 ml/min; Est GFR (Non-African American) 92.6 ml/min; Globulin 2.7 gm/dl (2.5-4.0); Magnesium 1.9 mg/dl (1.7-2.4); Phosphorus 2.3 mg/dl (2.5-4.9); Potassium 3.7 mmol/L (3.5-5.1); Total Protein 6.1 gm/dl (6.0-8.3)
[2022-05-06 07:52] LABS: Partial Thromboplastin Ratio > 5.1
[2022-05-06 08:07] LABS: Partial Thromboplastin Time > 139.0 Seconds (21.0-31.0)
[2022-05-06] MEDS: ONDANSETRON INJ 2 MG/ML 2 ML VIAL IV PRN ×2 (08:29→21:25)
[2022-05-06] MEDS: INSULIN ASPART PER UNIT SC SCH ×4 (08:29→21:30)
[2022-05-06] MEDS: METOPROLOL TARTRATE 25 MG TAB PO SCH ×2 (08:58→21:28)
[2022-05-06] MEDS: ARIPIprazole 1 MG/ML ORAL SOLN 150 ML BTL PO SCH (09:03)
[2022-05-06] MEDS: ASPIRIN 81 MG ECTAB PO SCH (09:03)
[2022-05-06] MEDS: DULoxetine HCL 60 MG CAP PO SCH ×2 (09:03→21:28)
[2022-05-06] MEDS: FAMOTIDINE 20 MG TAB PO SCH ×2 (09:04→21:27)
[2022-05-06] MEDS: allopurinoL 100 MG TAB PO SCH (09:04)
[2022-05-06] MEDS: FINASTERIDE 5 MG TAB PO SCH (09:05)
[2022-05-06] MEDS: LANTUS PER UNIT CHARGE SQ SCH (09:29)
[2022-05-06] MEDS: PANTOprazole 40 MG in SYRINGE 0 ML IV SCH (11:04)
[2022-05-06] MEDS: HYDROmorphone INJ 0.5 MG/0.5 ML SYR IV PRN ×2 (11:04→21:25)
[2022-05-06 11:16] LABS: Partial Thromboplastin Ratio 1.6; Partial Thromboplastin Time 44.2 Seconds (21.0-31.0)
--- NOTE | 2022-05-06 14:56 | Hospitalist Progress Note ---
Date of Service May 06, 2022 Assessment & Plan (1) SBO (small bowel obstruction): Plan: New issue, surgery following; on clear liquids, surgery following; observe; stop IV fluidvolume replete (2) Syncope and collapse: Plan: Exact etiology not clear; considered med induced which is possible; this issue resolved for now (3) Chest pain: Plan: Considered atypical for CAD; observe (4) Elevated troponin: Plan: Thought to be demand ischemia, type II NSTEMI; observe (5) CAD (coronary artery disease): Plan: h/o LAD stent remotely - continue asa - continue statin, metoprolol when able (6) Diabetes mellitus: Plan: Sugars acceptableno change (7) BPH w urinary obs/LUTS: Plan: on high doses of flomax 0.8mg and prazosin (perhaps for Psych purposes?)-I had recommended the prazosin be discontinued in February but somehow has been restarted given profound orthostasis--> HOLD Flomax for now and dc Prazosin if has issues with urinary retention, can restart FLomax 0.4 -continue finasteride does not follow with Urology 8/2: Above-notedno change today 8: No issues in this regard reported, observe (8) GERD (gastroesophageal reflux disease): Plan: GERD with esophagitis - continue H2 and PPI 82: At present made PPI IV (9) Pacemaker: Plan: Pacemaker is [employer] Beebe XT DR ESTES [id number] SERIAL number [id number] - LEADS 4968 capsure EPI - MR conditional - NO - DDD with mode switch at 171 - low rate 90 upper track 120 - AT/AF >170 - VT >150 This was inserted following biatrial MAZE and clipping of left atrial appendage (10) Tricuspid valve replaced: Plan: Done at [facility] with his pacemaker placement- bioprosthesis - On Warfarin as above - goal reported 1.5-2.0 -Cardiology recommends SBE prophylaxis for any dental procedures in the future 82: At present IV heparin given potential need for surgical intervention for SBO (11) Anemia: Plan: Hemoglobin generally stable, follow, ferritin 153 (12) Diarrhea: Plan: Currently this is not an acute issue, abdominal issue is SBOsee above Plan Observe mild hypophosphatemia, observe mild leukopenia Admission and Anticipated Discharge Date Admission Date: May 02, 2022 Subjective Follow-up of original presentation with syncope, recent acute event, SBO; still ongoing pain though slightly better Physical Exam 2 Physical Exam: Constitutional and general: No acute distress, looks biologic age Head and face: No puffiness, atraumatic Eyes: No scleral icterus, extraocular movements normal Neck: Supple, no JVD Musculoskeletal: No acute joint swelling, no bony abnormalities Skin/dermatologic/integument: No rash, no purpura Hematologic and lymphatic: pallor +, no petechia Gastrointestinal/abdomen: Mildly distended, mildly tender but nonperitoneal Neurologic: Cranial nerves intact, nonfocal Psychiatry: Awake, alert, pleasant, communicative Cardiovascular: Heart rhythm regular, no rub, soft SM, no gallop Respiratory: Chest movements equal, no use of accessory muscles, no adventitious sounds Extremities: No edema, no cyanosis Results & Data Results & Data ([facility]) Vital Signs (Past 12 Hours) Vital Signs Temp Pulse Pulse Resp BP BP Pulse Ox 05/06/22 11:00 36.8 C 89 18 125/80 95 05/06/22 07:30 90 05/06/22 08:58 36.9 C 89 16 112/74 98 05/06/22 07:15 05/06/22 03:49 36.8 C 89 18 108/69 97 O2 Del Method 05/06/22 11:00 Room Air 05/06/22 07:30 05/06/22 08:58 Room Air 05/06/22 07:15 Room Air 05/06/22 03:49 Room Air Laboratory Results Laboratory Results - last 24 hr 05/05/22 05/06/22 05/06/22 16:33 00:05 06:23 WBC RBC Hgb Hct MCV MCH MCHC RDW Std Deviation RDW Coeff of Eliana Plt Count MPV Immature Gran % (Auto) Neut % (Auto) Lymph % (Auto) [place] % (Auto) Eos % (Auto) Baso % (Auto) Neut # (Auto) Lymph # (Auto) [place] # (Auto) Eos # (Auto) Baso # (Auto) Immature Gran # (Auto) APTT PTT Ratio Sodium Potassium Chloride Carbon Dioxide Anion Gap BUN Creatinine Est Cr Clr Drug Dosing Est GFR ( Amer) Est GFR (Non-Af Amer) POC Glucose 117 H 113 H 85 Fasting Glucose Calcium Phosphorus Magnesium Total Bilirubin AST ALT Alkaline Phosphatase Total Protein Albumin Globulin Albumin/Globulin Ratio 05/06/22 05/06/22 05/06/22 06:37 06:37 06:37 WBC 3.62 L RBC 3.42 L Hgb 9.3 L Hct 29.3 L MCV 85.7 MCH 27.2 MCHC 31.7 L RDW Std Deviation 45.2 RDW Coeff of Eliana 14.5 Plt Count 388 MPV 8.1 L Immature Gran % (Auto) 0.3 Neut % (Auto) 56.1 Lymph % (Auto) 29.8 [place] % (Auto) 9.4 Eos % (Auto) 4.1 Baso % (Auto) 0.3 Neut # (Auto) 2.03 Lymph # (Auto) 1.08 L [place] # (Auto) 0.34 Eos # (Auto) 0.15 Baso # (Auto) 0.01 Immature Gran # (Auto) 0.01 APTT > 139.0 H* PTT Ratio > 5.1 Sodium 138 Potassium 3.7 Chloride 108 H Carbon Dioxide 25 Anion Gap 5 BUN 10 Creatinine 0.91 Est Cr Clr Drug Dosing 88.5 Est GFR ( Amer) 107.3 Est GFR (Non-Af Amer) 92.6 POC Glucose Fasting Glucose 92 Calcium 7.9 L Phosphorus 2.3 L Magnesium 1.9 Total Bilirubin 0.4 AST 16 ALT 22 Alkaline Phosphatase 99 Total Protein 6.1 Albumin 3.4 Globulin 2.7 Albumin/Globulin Ratio 1.3 05/06/22 05/06/22 05/06/22 07:40 10:43 11:43 WBC RBC Hgb Hct MCV MCH MCHC RDW Std Deviation RDW Coeff of Eliana Plt Count MPV Immature Gran % (Auto) Neut % (Auto) Lymph % (Auto) [place] % (Auto) Eos % (Auto) Baso % (Auto) Neut # (Auto) Lymph # (Auto) [place] # (Auto) Eos # (Auto) Baso # (Auto) Immature Gran # (Auto) APTT 44.2 H PTT Ratio 1.6 Sodium Potassium Chloride Carbon Dioxide Anion Gap BUN Creatinine Est Cr Clr Drug Dosing Est GFR ( Amer) Est GFR (Non-Af Amer) POC Glucose 90 111 H Fasting Glucose Calcium Phosphorus Magnesium Total Bilirubin AST ALT Alkaline Phosphatase Total Protein Albumin Globulin Albumin/Globulin Ratio PG Care Time/CCT Total # of Minutes Spent Total Time Spent with Patient: Total time spent is greater than 50% in coordination of care (as documented) at patient's floor/unit and/or counseling patient: Coding Level of Care Code 50662 Subseq Hosp Care Lvl 3 Diagnoses SBO (small bowel obstruction) K56.609 Syncope and collapse R55 Chest pain R07.9 Elevated troponin R77.8 CAD (coronary artery disease) I25.10 Diabetes mellitus E11.9 BPH w urinary obs/LUTS N40.1; N13.8 GERD (gastroesophageal reflux disease) K21.9 Pacemaker Z95.0 Tricuspid valve replaced Z95.4 Anemia D64.9 Diarrhea R19.7
[2022-05-06 17:43] LABS: Partial Thromboplastin Ratio 2.4
[2022-05-06 17:49] LABS: Partial Thromboplastin Time 65.2 Seconds (21.0-31.0)
[2022-05-06] MEDS: HEPARIN SODIUM/DEXTROSE 25,000 UNITS/500 ML BAG IV SCH (18:19)
[2022-05-06] MEDS: ROSUVASTATIN CALCIUM 20 MG TAB PO SCH (21:27)
[2022-05-06] MEDS: FLUTICASONE FUROATE 200MCG 14 PUFFS/INHALER INH SCH (21:30)
[2022-05-07] MEDS: ACETAMINOPHEN 1,000 MG/100 ML VIAL IV SCH ×4 (02:20→17:42)
[2022-05-07 07:25] LABS: Basophils # (auto) 0.02 K/uL (0-0.2); Basophils % (auto) 0.5 %; Eosinophils # (auto) 0.19 K/uL (0-0.50); Eosinophils % (auto) 4.9 %; Hemoglobin 9.3 g/dl (14.0-18.0); Immature Granulocytes # (auto) 0.01 K/uL (0.00-0.02); Immature Granulocytes % (auto) 0.3 %; Lymphocytes # (auto) 1.15 K/uL (1.2-3.4); Lymphocytes % (auto) 29.9 %; Mean Corpuscular Hemoglobin 26.7 pg (25.0-34.0); Mean Corpuscular Hgb Conc 32.1 g/dL (32.0-36.0); Mean Corpuscular Volume 83.3 fL (80.0-100.0); Mean Platelet Volume 7.8 fL (9.4-12.4); Monocytes # (auto) 0.38 K/uL (0.24-0.82); Monocytes % (auto) 9.9 %; Neutrophils # (auto) 2.09 K/uL (1.4-6.5); Neutrophils % (auto) 54.5 %; Platelet Count 307 K/uL (130-400); RDW Coefficient of Variation 14.3 % (11.5-14.5); RDW Standard Deviation 43.7 fL (36.4-46.3); Red Blood Count 3.48 M/uL (4.63-6.08); White Blood Count 3.84 K/ul (4.8-10.8)
[2022-05-07 07:49] LABS: Partial Thromboplastin Ratio 2.5
[2022-05-07 07:53] LABS: Albumin Globulin Ratio 1.3 (0.9-2); Albumin Level 3.5 gm/dl (3.4-5.0); Bilirubin,Total 0.4 mg/dl (0.2-1.0); Calcium 8.5 mg/dl (8.5-10.1); Creatinine Clr Calc Pharmacy 86.6 ml/min; Est GFR (African American) 104.5 ml/min; Est GFR (Non-African American) 90.2 ml/min; Globulin 2.8 gm/dl (2.5-4.0); Magnesium 1.8 mg/dl (1.7-2.4); Phosphorus 2.8 mg/dl (2.5-4.9); Potassium 3.6 mmol/L (3.5-5.1); Total Protein 6.3 gm/dl (6.0-8.3)
[2022-05-07] MEDS: INSULIN ASPART PER UNIT SC SCH ×4 (08:06→21:02)
[2022-05-07 08:17] LABS: Partial Thromboplastin Time 68.6 Seconds (21.0-31.0)
[2022-05-07] MEDS: METOPROLOL TARTRATE 25 MG TAB PO SCH ×2 (08:27→20:51)
[2022-05-07] MEDS: DULoxetine HCL 60 MG CAP PO SCH ×2 (08:28→20:52)
[2022-05-07] MEDS: FAMOTIDINE 20 MG TAB PO SCH ×2 (08:28→20:50)
[2022-05-07] MEDS: FINASTERIDE 5 MG TAB PO SCH (08:28)
[2022-05-07] MEDS: ASPIRIN 81 MG ECTAB PO SCH (08:28)
[2022-05-07] MEDS: allopurinoL 100 MG TAB PO SCH (08:28)
[2022-05-07] MEDS: ARIPIprazole 1 MG/ML ORAL SOLN 150 ML BTL PO SCH (08:29)
--- NOTE | 2022-05-07 08:33 | Surgery Progress Note ---
Date of Service May 07, 2022 Assessment & Plan (1) SBO (small bowel obstruction): Plan: Advance to full liquids today and see how he does He continues to have GI complaints which seems to be his baseline No plans for surgery at this point Will continue to follow Admission and Anticipated Discharge Date Admission Date: May 02, 2022 Subjective Patient seen and examined. Tolerating clear liquids. Passing flatus. He does complain of some nausea this morning. Has minimal abdominal pain. Review of Systems Constitutional: no fever and no chills Physical Exam Constitutional: WD/WN, vitals as above Gastrointestinal (Abdomen): Mild distention, mild left-sided tenderness to palpation, no guarding Results & Data ([facility]) Vital Signs (Past 12 Hours) Vital Signs Temp Pulse Pulse Resp BP BP Pulse Ox 05/07/22 07:46 05/07/22 07:20 89 05/06/22 22:20 89 05/07/22 04:25 36.8 C 88 16 114/76 05/06/22 23:20 37.0 C 88 18 104/68 96 O2 Del Method 05/07/22 07:46 Room Air 05/07/22 07:20 05/06/22 22:20 05/07/22 04:25 Room Air 05/06/22 23:20 Room Air PG Care Time/CCT Total # of Minutes Spent Total Time Spent with Patient: Total time spent is greater than 50% in coordination of care (as documented) at patient's floor/unit and/or counseling patient: Coding Level of Care Code 14702 Subseq Hosp Care Lvl 1 Diagnoses SBO (small bowel obstruction) K56.609
[2022-05-07] MEDS: LANTUS PER UNIT CHARGE SQ SCH (08:37)
[2022-05-07] MEDS: HYDROmorphone INJ 0.5 MG/0.5 ML SYR IV PRN (10:45)
[2022-05-07] MEDS: PANTOprazole 40 MG in SYRINGE 0 ML IV SCH (10:45)
[2022-05-07 14:49] LABS: Partial Thromboplastin Ratio 2.6
[2022-05-07 14:53] LABS: Partial Thromboplastin Time 71.4 Seconds (21.0-31.0)
--- NOTE | 2022-05-07 16:25 | Hospitalist Progress Note ---
Date of Service May 07, 2022 Assessment & Plan (1) SBO (small bowel obstruction): Plan: Doing better, diet advanced to full liquids; will defer to surgery in this regard (2) Syncope and collapse: Plan: Exact etiology not clear; considered med induced which is possible; this issue resolved for now (3) Chest pain: Plan: Considered atypical for CAD; observe (4) Elevated troponin: Plan: Thought to be demand ischemia, type II NSTEMI; observe (5) CAD (coronary artery disease): Plan: h/o LAD stent remotely - continue asa - continue statin, metoprolol when able (6) Diabetes mellitus: Plan: Sugars acceptableno change (7) BPH w urinary obs/LUTS: Plan: on high doses of flomax 0.8mg and prazosin (perhaps for Psych purposes?)-I had recommended the prazosin be discontinued in February but somehow has been restarted given profound orthostasis--> HOLD Flomax for now and dc Prazosin if has issues with urinary retention, can restart FLomax 0.4 -continue finasteride does not follow with Urology 05/07: No issues in this regard reported, observe (8) GERD (gastroesophageal reflux disease): Plan: GERD with esophagitis - continue H2 and PPI 05/05: At present made PPI IV Keep same (9) Pacemaker: Plan: Pacemaker is [employer] Nai XT DR ESTES [id number] SERIAL number [id number] - LEADS 4968 capsure EPI - MR conditional - NO - DDD with mode switch at 171 - low rate 90 upper track 120 - AT/AF >170 - VT >150 This was inserted following biatrial MAZE and clipping of left atrial appendage (10) Tricuspid valve replaced: Plan: Done at [facility] [place] with his pacemaker placement- bioprosthesis - On Warfarin as above - goal reported 1.5-2.0 -Cardiology recommends SBE prophylaxis for any dental procedures in the future 05/07: At present IV heparin till need for surgical intervention for SBO completely ruled out (11) Anemia: Plan: Hemoglobin generally stable, follow, ferritin 153 (12) Diarrhea: Plan: Currently this is not an acute issue, abdominal issue is SBOsee above Plan observe mild leukopenia Admission and Anticipated Discharge Date Admission Date: May 02, 2022 Subjective Follow-up of original presentation with syncope, recent SBOlatter doing better, diet advanced by surgery to full liquid Physical Exam Physical Exam: Constitutional and general: No acute distress, looks biologic age Head and face: No puffiness, atraumatic Eyes: No scleral icterus, extraocular movements normal Neck: Supple, no JVD Musculoskeletal: No acute joint swelling, no bony abnormalities Skin/dermatologic/integument: No rash, no purpura Hematologic and lymphatic: pallor +, no petechia Gastrointestinal/abdomen: Mildly distended, mildly tender but nonperitoneal Neurologic: Cranial nerves intact, nonfocal Psychiatry: Awake, alert, pleasant, communicative Cardiovascular: Heart rhythm regular, no rub, soft SM, no gallop Respiratory: Chest movements equal, no use of accessory muscles, no adventitious sounds Extremities: No edema, no cyanosis Results & Data Results & Data ([facility]) Vital Signs (Past 12 Hours) Vital Signs Temp Pulse Pulse Resp BP BP Pulse Ox 05/07/22 15:57 89 05/07/22 14:56 36.8 C 92 H 18 125/83 99 05/07/22 11:52 36.5 C 89 18 105/72 98 05/07/22 07:46 05/07/22 07:20 89 05/07/22 04:25 36.8 C 88 16 114/76 O2 Del Method 05/07/22 15:57 05/07/22 14:56 Room Air 05/07/22 11:52 Room Air 05/07/22 07:46 Room Air 05/07/22 07:20 05/07/22 04:25 Room Air Laboratory Results Laboratory Results - last 24 hr 05/06/22 05/06/22 05/06/22 16:42 16:50 20:41 WBC RBC Hgb Hct MCV MCH MCHC RDW Std Deviation RDW Coeff of Eliana Plt Count MPV Immature Gran % (Auto) Neut % (Auto) Lymph % (Auto) [place] % (Auto) Eos % (Auto) Baso % (Auto) Neut # (Auto) Lymph # (Auto) [place] # (Auto) Eos # (Auto) Baso # (Auto) Immature Gran # (Auto) APTT 65.2 H* PTT Ratio 2.4 Sodium Potassium Chloride Carbon Dioxide Anion Gap BUN Creatinine Est Cr Clr Drug Dosing Est GFR ( Amer) Est GFR (Non-Af Amer) POC Glucose 91 99 Fasting Glucose Calcium Phosphorus Magnesium Total Bilirubin AST ALT Alkaline Phosphatase Total Protein Albumin Globulin Albumin/Globulin Ratio 05/07/22 05/07/22 05/07/22 07:02 07:02 07:02 WBC 3.84 L RBC 3.48 L Hgb 9.3 L Hct 29.0 L MCV 83.3 MCH 26.7 MCHC 32.1 RDW Std Deviation 43.7 RDW Coeff of Eliana 14.3 Plt Count 307 MPV 7.8 L Immature Gran % (Auto) 0.3 Neut % (Auto) 54.5 Lymph % (Auto) 29.9 [place] % (Auto) 9.9 Eos % (Auto) 4.9 Baso % (Auto) 0.5 Neut # (Auto) 2.09 Lymph # (Auto) 1.15 L [place] # (Auto) 0.38 Eos # (Auto) 0.19 Baso # (Auto) 0.02 Immature Gran # (Auto) 0.01 APTT 68.6 H* PTT Ratio 2.5 Sodium 139 Potassium 3.6 Chloride 106 Carbon Dioxide 28 Anion Gap 5 BUN 7 Creatinine 0.93 Est Cr Clr Drug Dosing 86.6 Est GFR ( Amer) 104.5 Est GFR (Non-Af Amer) 90.2 POC Glucose Fasting Glucose 96 Calcium 8.5 Phosphorus 2.8 Magnesium 1.8 Total Bilirubin 0.4 AST 14 ALT 19 Alkaline Phosphatase 96 Total Protein 6.3 Albumin 3.5 Globulin 2.8 Albumin/Globulin Ratio 1.3 05/07/22 05/07/22 05/07/22 07:53 11:50 14:14 WBC RBC Hgb Hct MCV MCH MCHC RDW Std Deviation RDW Coeff of Eliana Plt Count MPV Immature Gran % (Auto) Neut % (Auto) Lymph % (Auto) [place] % (Auto) Eos % (Auto) Baso % (Auto) Neut # (Auto) Lymph # (Auto) [place] # (Auto) Eos # (Auto) Baso # (Auto) Immature Gran # (Auto) APTT 71.4 H* PTT Ratio 2.6 Sodium Potassium Chloride Carbon Dioxide Anion Gap BUN Creatinine Est Cr Clr Drug Dosing Est GFR ( Amer) Est GFR (Non-Af Amer) POC Glucose 87 91 Fasting Glucose Calcium Phosphorus Magnesium Total Bilirubin AST ALT Alkaline Phosphatase Total Protein Albumin Globulin Albumin/Globulin Ratio PG Care Time/CCT Total # of Minutes Spent Total Time Spent with Patient: Total time spent is greater than 50% in coordination of care (as documented) at patient's floor/unit and/or counseling patient: Coding Level of Care Code 70242 Subseq Hosp Care Lvl 3 Diagnoses SBO (small bowel obstruction) K56.609 Syncope and collapse R55 Chest pain R07.9 Elevated troponin R77.8 CAD (coronary artery disease) I25.10 Diabetes mellitus E11.9 BPH w urinary obs/LUTS N40.1; N13.8 GERD (gastroesophageal reflux disease) K21.9 Pacemaker Z95.0 Tricuspid valve replaced Z95.4 Anemia D64.9 Diarrhea R19.7
[2022-05-07] MEDS: ROSUVASTATIN CALCIUM 20 MG TAB PO SCH (20:52)
[2022-05-07] MEDS: FLUTICASONE FUROATE 200MCG 14 PUFFS/INHALER INH SCH (20:52)
[2022-05-07] MEDS: HEPARIN SODIUM/DEXTROSE 25,000 UNITS/500 ML BAG IV SCH (21:01)
[2022-05-07 21:59] LABS: Partial Thromboplastin Time 56.3 Seconds (21.0-31.0)
[2022-05-08] MEDS: HYDROmorphone INJ 0.5 MG/0.5 ML SYR IV PRN ×3 (01:11→18:33)
[2022-05-08] MEDS ORDERED: MELATONIN 3 MG TAB PO ONE (04:01)
--- NOTE | 2022-05-08 06:40 | Surgery Progress Note ---
Date of Service May 08, 2022 Assessment & Plan (1) SBO (small bowel obstruction): Plan: Tolerating diet Will advance to low fiber No indication for surgical intervention Discharge when medically stable Admission and Anticipated Discharge Date Admission Date: May 02, 2022 Subjective Tolerating full liquids Patient would like more food Had a bowel movement last evening Review of Systems Review of Systems: All systems reviewed & are unremarkable except as noted in HPI & below Physical Exam Physical Exam: Minimal abdominal distention Constitutional: no acute distress Eyes: + anicteric sclerae Respiratory: normal respiratory effort; no respiratory distress Cardiovascular: Rate/Rhythm: regular rate Gastrointestinal (Abdomen): Inspection/Auscultation: abdomen not distended Musculoskeletal: Head/Neck/Chest: head atraumatic Skin: no rashes, warm and dry Neurologic: awake Psychiatric: Orientation: alert Results & Data ([facility]) Vital Signs (Past 12 Hours) Vital Signs Temp Pulse Pulse Resp BP Pulse Ox Pulse Ox 05/07/22 23:00 89 05/08/22 04:00 36.8 C 89 18 127/83 98 05/07/22 23:10 36.7 C 89 18 145/87 H 97 05/07/22 20:00 98 05/07/22 19:15 05/07/22 19:15 36.7 C 90 16 137/99 98 O2 Del Method O2 Del Method O2 Flow Rate 05/07/22 23:00 05/08/22 04:00 Room Air 05/07/22 23:10 Room Air 05/07/22 20:00 Room Air 0 05/07/22 19:15 Room Air 05/07/22 19:15 Room Air PG Care Time/CCT Total # of Minutes Spent Total Time Spent with Patient: Total time spent is greater than 50% in coordination of care (as documented) at patient's floor/unit and/or counseling patient: Coding Level of Care Code 48524 Inpt Consult Level 3 Diagnoses SBO (small bowel obstruction) K56.609
[2022-05-08 07:28] LABS: Basophils # (auto) 0.02 K/uL (0-0.2); Basophils % (auto) 0.4 %; Eosinophils # (auto) 0.13 K/uL (0-0.50); Eosinophils % (auto) 2.5 %; Hematocrit (blood only) 32.6 % (40.1-51.0); Hemoglobin 10.2 g/dl (14.0-18.0); Immature Granulocytes # (auto) 0.02 K/uL (0.00-0.02); Immature Granulocytes % (auto) 0.4 %; Mean Corpuscular Hemoglobin 26.6 pg (25.0-34.0); Mean Corpuscular Hgb Conc 31.3 g/dL (32.0-36.0); Mean Corpuscular Volume 85.1 fL (80.0-100.0); Mean Platelet Volume 7.5 fL (9.4-12.4); Monocytes # (auto) 0.42 K/uL (0.24-0.82); Monocytes % (auto) 8.1 %; Neutrophils % (auto) 61.6 %; Platelet Count 322 K/uL (130-400); RDW Coefficient of Variation 14.3 % (11.5-14.5); RDW Standard Deviation 43.8 fL (36.4-46.3); Red Blood Count 3.83 M/uL (4.63-6.08); White Blood Count 5.19 K/ul (4.8-10.8)
[2022-05-08 07:50] LABS: Albumin Globulin Ratio 1.3 (0.9-2); Bilirubin,Total 0.4 mg/dl (0.2-1.0); Calcium 8.8 mg/dl (8.5-10.1); Creatinine Clr Calc Pharmacy 80.5 ml/min; Est GFR (African American) 95.7 ml/min; Est GFR (Non-African American) 82.6 ml/min; Globulin 3.1 gm/dl (2.5-4.0); Magnesium 1.8 mg/dl (1.7-2.4); Phosphorus 3.5 mg/dl (2.5-4.9); Potassium 3.4 mmol/L (3.5-5.1); Total Protein 7.1 gm/dl (6.0-8.3)
[2022-05-08] MEDS: HEPARIN SODIUM/DEXTROSE 25,000 UNITS/500 ML BAG IV SCH ×2 (08:51→11:56)
[2022-05-08] MEDS: INSULIN ASPART PER UNIT SC SCH ×4 (08:52→21:01)
[2022-05-08] MEDS: LANTUS PER UNIT CHARGE SQ SCH (08:52)
[2022-05-08] MEDS: DULoxetine HCL 60 MG CAP PO SCH ×2 (08:53→20:59)
[2022-05-08] MEDS: FAMOTIDINE 20 MG TAB PO SCH ×2 (08:53→20:59)
[2022-05-08] MEDS: ASPIRIN 81 MG ECTAB PO SCH (08:53)
[2022-05-08] MEDS: FINASTERIDE 5 MG TAB PO SCH (08:53)
[2022-05-08] MEDS: allopurinoL 100 MG TAB PO SCH (08:53)
[2022-05-08] MEDS: METOPROLOL TARTRATE 25 MG TAB PO SCH ×2 (08:54→20:59)
[2022-05-08] MEDS: ARIPIprazole 1 MG/ML ORAL SOLN 150 ML BTL PO SCH (08:58)
[2022-05-08] MEDS: PANTOprazole 40 MG in SYRINGE 0 ML IV SCH (11:26)
[2022-05-08] MEDS ORDERED: POTASSIUM CHLORIDE 20 MEQ/15 ML UDC PO STA (13:32)
--- NOTE | 2022-05-08 15:20 | Hospitalist Progress Note ---
Date of Service May 08, 2022 Assessment & Plan (1) SBO (small bowel obstruction): Plan: Essentially resolved; continue ordered diet Does not appear surgery is going to be neededresume Coumadin; await therapeutic INR (2) Syncope and collapse: Plan: Exact etiology not clear; considered med induced which is possible; this issue resolved for now (3) Chest pain: Plan: Considered atypical for CAD; observe (4) Elevated troponin: Plan: Thought to be demand ischemia, type II NSTEMI; observe (5) CAD (coronary artery disease): Plan: h/o LAD stent remotely - continue asa - continue statin, metoprolol (6) Diabetes mellitus: Plan: Sugars acceptableno change (7) BPH w urinary obs/LUTS: Plan: on high doses of flomax 0.8mg and prazosin (perhaps for Psych purposes?)-I had recommended the prazosin be discontinued in February but somehow has been restarted given profound orthostasis--> HOLD Flomax for now and dc Prazosin if has issues with urinary retention, can restart FLomax 0.4 -continue finasteride does not follow with Urology 05/08: No issues in this regard reported, observe (8) GERD (gastroesophageal reflux disease): Plan: GERD with esophagitis - continue H2 and PPI 05/05: At present made PPI IV Keep same (9) Pacemaker: Plan: Pacemaker is [employer]onic [place] XT DR ESTES [id number] SERIAL number [id number] - LEADS 4968 capsure EPI - MR conditional - NO - DDD with mode switch at 171 - low rate 90 upper track 120 - AT/AF >170 - VT >150 This was inserted following biatrial MAZE and clipping of left atrial appendage (10) Tricuspid valve replaced: Plan: Done at [facility] with his pacemaker placement- bioprosthesis - On Warfarin as above - goal reported 1.5-2.0 -Cardiology recommends SBE prophylaxis for any dental procedures in the future 05/07: Resumed Coumadin; IV heparin bridge (11) Anemia: Plan: Hemoglobin generally stable, follow, ferritin 153 Plan Hypokalemiareplace as appropriate Admission and Anticipated Discharge Date Admission Date: May 02, 2022 Subjective Follow-up of original presentation with syncope, recent SBOno complaints; tolerating ordered diet Physical Exam Physical Exam: Constitutional and general: No acute distress, looks biologic age Head and face: No puffiness, atraumatic Eyes: No scleral icterus, extraocular movements normal Neck: Supple, no JVD Musculoskeletal: No acute joint swelling, no bony abnormalities Skin/dermatologic/integument: No rash, no purpura Hematologic and lymphatic: pallor +, no petechia Gastrointestinal/abdomen: Mildly distended, mildly tender but nonperitoneal Neurologic: Cranial nerves intact, nonfocal Psychiatry: Awake, alert, pleasant, communicative Cardiovascular: Heart rhythm regular, no rub, soft SM, no gallop Respiratory: Chest movements equal, no use of accessory muscles, no adventitious sounds Extremities: No edema, no cyanosis Results & Data Results & Data ([facility]) Vital Signs (Past 12 Hours) Vital Signs Temp Pulse Resp BP Pulse Ox O2 Del Method 05/08/22 12:25 37.0 C 89 16 128/85 97 Room Air 05/08/22 08:26 36.8 C 89 18 118/81 96 Room Air 05/08/22 04:00 36.8 C 89 18 127/83 98 Room Air Laboratory Results Laboratory Results - last 24 hr 05/07/22 05/07/22 05/07/22 16:56 20:23 20:24 WBC RBC Hgb Hct MCV MCH MCHC RDW Std Deviation RDW Coeff of Eliana Plt Count MPV Immature Gran % (Auto) Neut % (Auto) Lymph % (Auto) Harvey % (Auto) Eos % (Auto) Baso % (Auto) Neut # (Auto) Lymph # (Auto) Harvey # (Auto) Eos # (Auto) Baso # (Auto) Immature Gran # (Auto) APTT PTT Ratio Sodium Potassium Chloride Carbon Dioxide Anion Gap BUN Creatinine Est Cr Clr Drug Dosing Est GFR ( Amer) Est GFR (Non-Af Amer) POC Glucose 80 67 L* 71 Fasting Glucose Calcium Phosphorus Magnesium Total Bilirubin AST ALT Alkaline Phosphatase Total Protein Albumin Globulin Albumin/Globulin Ratio 05/07/22 05/07/22 05/07/22 20:50 20:56 20:57 WBC RBC Hgb Hct MCV MCH MCHC RDW Std Deviation RDW Coeff of Eliana Plt Count MPV Immature Gran % (Auto) Neut % (Auto) Lymph % (Auto) Harvey % (Auto) Eos % (Auto) Baso % (Auto) Neut # (Auto) Lymph # (Auto) Harvey # (Auto) Eos # (Auto) Baso # (Auto) Immature Gran # (Auto) APTT 56.3 H* PTT Ratio 2.0 Sodium Potassium Chloride Carbon Dioxide Anion Gap BUN Creatinine Est Cr Clr Drug Dosing Est GFR ( Amer) Est GFR (Non-Af Amer) POC Glucose 52 L* 82 Fasting Glucose Calcium Phosphorus Magnesium Total Bilirubin AST ALT Alkaline Phosphatase Total Protein Albumin Globulin Albumin/Globulin Ratio 05/08/22 05/08/22 05/08/22 07:15 07:15 07:15 WBC 5.19 RBC 3.83 L Hgb 10.2 L Hct 32.6 L MCV 85.1 MCH 26.6 MCHC 31.3 L RDW Std Deviation 43.8 RDW Coeff of Eliana 14.3 Plt Count 322 MPV 7.5 L Immature Gran % (Auto) 0.4 Neut % (Auto) 61.6 Lymph % (Auto) 27.0 Harvey % (Auto) 8.1 Eos % (Auto) 2.5 Baso % (Auto) 0.4 Neut # (Auto) 3.20 Lymph # (Auto) 1.40 Harvey # (Auto) 0.42 Eos # (Auto) 0.13 Baso # (Auto) 0.02 Immature Gran # (Auto) 0.02 APTT Cancelled PTT Ratio Cancelled Sodium 137 Potassium 3.4 L Chloride 103 Carbon Dioxide 26 Anion Gap 8 BUN 6 Creatinine 1.00 Est Cr Clr Drug Dosing 80.5 Est GFR ( Amer) 95.7 Est GFR (Non-Af Amer) 82.6 POC Glucose Fasting Glucose 86 Calcium 8.8 Phosphorus 3.5 Magnesium 1.8 Total Bilirubin 0.4 AST 18 ALT 23 Alkaline Phosphatase 118 H Total Protein 7.1 Albumin 4.0 Globulin 3.1 Albumin/Globulin Ratio 1.3 05/08/22 05/08/22 05/08/22 07:15 07:58 11:54 WBC RBC Hgb Hct MCV MCH MCHC RDW Std Deviation RDW Coeff of Eliana Plt Count MPV Immature Gran % (Auto) Neut % (Auto) Lymph % (Auto) Harvey % (Auto) Eos % (Auto) Baso % (Auto) Neut # (Auto) Lymph # (Auto) Harvey # (Auto) Eos # (Auto) Baso # (Auto) Immature Gran # (Auto) APTT 55.0 H* PTT Ratio 2.0 Sodium Potassium Chloride Carbon Dioxide Anion Gap BUN Creatinine Est Cr Clr Drug Dosing Est GFR ( Amer) Est GFR (Non-Af Amer) POC Glucose 87 98 Fasting Glucose Calcium Phosphorus Magnesium Total Bilirubin AST ALT Alkaline Phosphatase Total Protein Albumin Globulin Albumin/Globulin Ratio PG Care Time/CCT Total # of Minutes Spent Total Time Spent with Patient: Total time spent is greater than 50% in coordination of care (as documented) at patient's floor/unit and/or counseling patient: Coding Level of Care Code 85432 Subseq Hosp Care Lvl 3 Diagnoses SBO (small bowel obstruction) K56.609 Syncope and collapse R55 Chest pain R07.9 Elevated troponin R77.8 CAD (coronary artery disease) I25.10 Diabetes mellitus E11.9 BPH w urinary obs/LUTS N40.1; N13.8 GERD (gastroesophageal reflux disease) K21.9 Pacemaker Z95.0 Tricuspid valve replaced Z95.4 Anemia D64.9
[2022-05-08] MEDS: WARFARIN SOD 2 MG TAB PO SCH (16:39)
[2022-05-08] MEDS: FLUTICASONE FUROATE 200MCG 14 PUFFS/INHALER INH SCH (21:00)
[2022-05-08] MEDS: ROSUVASTATIN CALCIUM 20 MG TAB PO SCH (21:00)
[2022-05-08] MEDS: MELATONIN 3 MG TAB PO PRN (21:04)
[2022-05-09] MEDS: HYDROmorphone INJ 0.5 MG/0.5 ML SYR IV PRN ×3 (03:25→23:26)
[2022-05-09] MEDS: INSULIN ASPART PER UNIT SC SCH ×4 (07:40→20:43)
[2022-05-09] MEDS: ASPIRIN 81 MG ECTAB PO SCH (07:40)
[2022-05-09] MEDS: ARIPIprazole 1 MG/ML ORAL SOLN 150 ML BTL PO SCH (07:41)
[2022-05-09] MEDS: allopurinoL 100 MG TAB PO SCH (07:41)
[2022-05-09] MEDS: FAMOTIDINE 20 MG TAB PO SCH ×2 (07:41→20:41)
[2022-05-09] MEDS: METOPROLOL TARTRATE 25 MG TAB PO SCH ×2 (07:41→20:40)
[2022-05-09] MEDS: DULoxetine HCL 60 MG CAP PO SCH ×2 (07:41→20:39)
[2022-05-09] MEDS: FINASTERIDE 5 MG TAB PO SCH (07:42)
[2022-05-09 07:45] LABS: Basophils # (auto) 0.02 K/uL (0-0.2); Basophils % (auto) 0.4 %; Eosinophils # (auto) 0.17 K/uL (0-0.50); Eosinophils % (auto) 3.7 %; Hematocrit (blood only) 28.8 % (40.1-51.0); Hemoglobin 9.1 g/dl (14.0-18.0); Immature Granulocytes # (auto) 0.02 K/uL (0.00-0.02); Immature Granulocytes % (auto) 0.4 %; Lymphocytes % (auto) 28.3 %; Mean Corpuscular Hgb Conc 31.6 g/dL (32.0-36.0); Mean Corpuscular Volume 85.5 fL (80.0-100.0); Monocytes # (auto) 0.44 K/uL (0.24-0.82); Monocytes % (auto) 9.6 %; Neutrophils # (auto) 2.64 K/uL (1.4-6.5); Neutrophils % (auto) 57.6 %; Platelet Count 269 K/uL (130-400); RDW Coefficient of Variation 14.7 % (11.5-14.5); RDW Standard Deviation 45.8 fL (36.4-46.3); Red Blood Count 3.37 M/uL (4.63-6.08); White Blood Count 4.59 K/ul (4.8-10.8)
[2022-05-09] MEDS: LANTUS PER UNIT CHARGE SQ SCH (07:53)
[2022-05-09 08:14] LABS: Albumin Globulin Ratio 1.3 (0.9-2); Albumin Level 3.5 gm/dl (3.4-5.0); Bilirubin,Total 0.3 mg/dl (0.2-1.0); Calcium 8.2 mg/dl (8.5-10.1); Creatinine Clr Calc Pharmacy 85.7 ml/min; Est GFR (African American) 103.2 ml/min; Globulin 2.7 gm/dl (2.5-4.0); Magnesium 1.6 mg/dl (1.7-2.4); Phosphorus 3.1 mg/dl (2.5-4.9); Potassium 3.6 mmol/L (3.5-5.1); Total Protein 6.2 gm/dl (6.0-8.3)
[2022-05-09 08:19] LABS: INR 1.3 (0.9-1.1); Partial Thromboplastin Ratio 1.8
[2022-05-09 08:51] LABS: Partial Thromboplastin Time 49.4 Seconds (21.0-31.0)
--- NOTE | 2022-05-09 10:11 | Surgery Progress Note ---
Date of Service May 09, 2022 Assessment & Plan (1) SBO (small bowel obstruction): Plan: resolved will sign off discharge per primary team Admission and Anticipated Discharge Date Admission Date: May 02, 2022 Subjective sill with a little abdominal pain ngt removed passing BMs taking regular diet Review of Systems Constitutional: no fever and no chills Respiratory: no cough and no dyspnea Cardiovascular: no chest pain Gastrointestinal: + abdominal pain; no nausea and no vomiting Genitourinary: no dysuria Musculoskeletal: no back pain Psychiatric: no behavioral changes Physical Exam Constitutional: WD/WN, vitals as above Eyes: PERRL, conjunctivae normal, anicteric sclerae ENMT: external ear and nose normal, oropharynx normal Neck: trachea midline Respiratory: normal respiratory effort, lungs clear to auscultation Cardiovascular: RRR, no murmur, no edema Gastrointestinal (Abdomen): Inspection/Auscultation: abdomen normal to inspection and normal bowel sounds; abdomen not distended Percussion/Palpation: abdomen soft; abdomen nontender, no guarding and abdomen not rigid Musculoskeletal: Head/Neck/Chest: normocephalic and head atraumatic Results & Data ([facility]) Vital Signs (Past 12 Hours) Vital Signs Temp Pulse Pulse Resp BP Pulse Ox O2 Del Method 05/09/22 07:11 90 05/09/22 04:09 89 05/09/22 03:00 37.0 C 90 18 113/77 95 Room Air 05/08/22 23:33 36.9 C 82 18 113/76 98 Room Air
[2022-05-09] MEDS: HEPARIN SODIUM/DEXTROSE 25,000 UNITS/500 ML BAG IV SCH (11:19)
[2022-05-09] MEDS: PANTOprazole 40 MG in SYRINGE 0 ML IV SCH (11:23)
[2022-05-09] MEDS: MAGNESIUM SULFATE / D5W 1 GM/100 ML BAG IV SCH ×3 (12:52→16:42)
--- NOTE | 2022-05-09 14:43 | Hospitalist Progress Note ---
Date of Service May 09, 2022 Assessment & Plan (1) SBO (small bowel obstruction): Plan: Essentially resolved; continue ordered diet Does not appear surgery is going to be neededresumed Coumadin; await therapeutic INR (2) Syncope and collapse: Plan: Exact etiology not clear; considered med induced which is possible; this issue resolved for now (3) Chest pain: Plan: Considered atypical for CAD; observe (4) Elevated troponin: Plan: Thought to be demand ischemia, type II NSTEMI; observe (5) CAD (coronary artery disease): Plan: h/o LAD stent remotely - continue asa - continue statin, metoprolol (6) Diabetes mellitus: Plan: Sugars acceptableno change (7) BPH w urinary obs/LUTS: Plan: on high doses of flomax 0.8mg and prazosin (perhaps for Psych purposes?)-I had recommended the prazosin be discontinued in February but somehow has been restarted given profound orthostasis--> HOLD Flomax for now and dc Prazosin if has issues with urinary retention, can restart FLomax 0.4 -continue finasteride does not follow with Urology 05/09: No issues in this regard reported, observe (8) GERD (gastroesophageal reflux disease): Plan: GERD with esophagitis - continue H2 and PPI (9) Pacemaker: Plan: Pacemaker is [employer] [place] XT DR ESTES [id number] SERIAL number [id number] - LEADS 4968 capsure EPI - MR conditional - NO - DDD with mode switch at 171 - low rate 90 upper track 120 - AT/AF >170 - VT >150 This was inserted following biatrial MAZE and clipping of left atrial appendage (10) Tricuspid valve replaced: Plan: Done at [facility] with his pacemaker placement- bioprosthesis - On Warfarin as above - goal reported 1.5-2.0 -Cardiology recommends SBE prophylaxis for any dental procedures in the future Resumed Coumadin; IV heparin bridge (11) Anemia: Plan: Hemoglobin generally stable though fluctuating, today's values noted, follow, ferritin 153 Plan Hypomagnesemiareplace Observe mild intermittent leukopenia Admission and Anticipated Discharge Date Admission Date: May 02, 2022 Subjective Follow-up of original presentation with syncope, recent SBOno specific complaints Physical Exam Physical Exam: Constitutional and general: No acute distress, looks biologic age Head and face: No puffiness, atraumatic Eyes: No scleral icterus, extraocular movements normal Neck: Supple, no JVD Musculoskeletal: No acute joint swelling, no bony abnormalities Skin/dermatologic/integument: No rash, no purpura Hematologic and lymphatic: pallor +, no petechia Gastrointestinal/abdomen: Mildly distended, mildly tender but nonperitoneal Neurologic: Cranial nerves intact, nonfocal Psychiatry: Awake, alert, pleasant, communicative Cardiovascular: Heart rhythm regular, no rub, soft SM, no gallop Respiratory: Chest movements equal, no use of accessory muscles, no adventitious sounds Extremities: No edema, no cyanosis Results & Data Results & Data ([facility]) Vital Signs (Past 12 Hours) Vital Signs Temp Pulse Pulse Resp BP BP Pulse Ox 05/09/22 11:02 36.8 C 56 L 20 128/92 98 05/09/22 07:11 90 05/09/22 04:09 89 05/09/22 03:00 37.0 C 90 18 113/77 95 O2 Del Method 05/09/22 11:02 05/09/22 07:11 05/09/22 04:09 05/09/22 03:00 Room Air Laboratory Results Laboratory Results - last 24 hr 05/08/22 05/08/22 05/09/22 16:29 20:21 07:15 WBC RBC Hgb Hct MCV MCH MCHC RDW Std Deviation RDW Coeff of Eliana Plt Count MPV Immature Gran % (Auto) Neut % (Auto) Lymph % (Auto) [place] % (Auto) Eos % (Auto) Baso % (Auto) Neut # (Auto) Lymph # (Auto) [place] # (Auto) Eos # (Auto) Baso # (Auto) Immature Gran # (Auto) PT 14.0 H INR 1.3 H APTT 49.4 H* PTT Ratio 1.8 Sodium Potassium Chloride Carbon Dioxide Anion Gap BUN Creatinine Est Cr Clr Drug Dosing Est GFR ( Amer) Est GFR (Non-Af Amer) POC Glucose 99 78 Fasting Glucose Calcium Phosphorus Magnesium Total Bilirubin AST ALT Alkaline Phosphatase Total Protein Albumin Globulin Albumin/Globulin Ratio 05/09/22 05/09/22 05/09/22 07:15 07:15 07:38 WBC 4.59 L RBC 3.37 L Hgb 9.1 L Hct 28.8 L MCV 85.5 MCH 27.0 MCHC 31.6 L RDW Std Deviation 45.8 RDW Coeff of Eliana 14.7 H Plt Count 269 MPV 8.0 L Immature Gran % (Auto) 0.4 Neut % (Auto) 57.6 Lymph % (Auto) 28.3 Coos % (Auto) 9.6 Eos % (Auto) 3.7 Baso % (Auto) 0.4 Neut # (Auto) 2.64 Lymph # (Auto) 1.30 Coos # (Auto) 0.44 Eos # (Auto) 0.17 Baso # (Auto) 0.02 Immature Gran # (Auto) 0.02 PT INR APTT PTT Ratio Sodium 138 Potassium 3.6 Chloride 107 Carbon Dioxide 25 Anion Gap 6 BUN 8 Creatinine 0.94 Est Cr Clr Drug Dosing 85.7 Est GFR ( Amer) 103.2 Est GFR (Non-Af Amer) 89.0 POC Glucose 88 Fasting Glucose 88 Calcium 8.2 L Phosphorus 3.1 Magnesium 1.6 L Total Bilirubin 0.3 AST 13 ALT 17 Alkaline Phosphatase 97 Total Protein 6.2 Albumin 3.5 Globulin 2.7 Albumin/Globulin Ratio 1.3 05/09/22 11:31 WBC RBC Hgb Hct MCV MCH MCHC RDW Std Deviation RDW Coeff of Eliana Plt Count MPV Immature Gran % (Auto) Neut % (Auto) Lymph % (Auto) [place] % (Auto) Eos % (Auto) Baso % (Auto) Neut # (Auto) Lymph # (Auto) [place]os # (Auto) Eos # (Auto) Baso # (Auto) Immature Gran # (Auto) PT INR APTT PTT Ratio Sodium Potassium Chloride Carbon Dioxide Anion Gap BUN Creatinine Est Cr Clr Drug Dosing Est GFR ( Amer) Est GFR (Non-Af Amer) POC Glucose 141 H Fasting Glucose Calcium Phosphorus Magnesium Total Bilirubin AST ALT Alkaline Phosphatase Total Protein Albumin Globulin Albumin/Globulin Ratio PG Care Time/CCT Total # of Minutes Spent Total Time Spent with Patient: Total time spent is greater than 50% in coordination of care (as documented) at patient's floor/unit and/or counseling patient: Coding Level of Care Code 11627 Subseq Hosp Care Lvl 3 Diagnoses SBO (small bowel obstruction) K56.609 Syncope and collapse R55 Chest pain R07.9 Elevated troponin R77.8 CAD (coronary artery disease) I25.10 Diabetes mellitus E11.9 BPH w urinary obs/LUTS N40.1; N13.8 GERD (gastroesophageal reflux disease) K21.9 Pacemaker Z95.0 Tricuspid valve replaced Z95.4 Anemia D64.9
[2022-05-09] MEDS: WARFARIN SOD 2 MG TAB PO SCH (15:31)
[2022-05-09] MEDS: ONDANSETRON INJ 2 MG/ML 2 ML VIAL IV PRN (19:31)
[2022-05-09] MEDS: CARBOHYDRATES FOR HYPOGLYCEMIA PO PRN ×2 (20:11→20:35)
[2022-05-09] MEDS: ROSUVASTATIN CALCIUM 20 MG TAB PO SCH (20:39)
[2022-05-09] MEDS: FLUTICASONE FUROATE 200MCG 14 PUFFS/INHALER INH SCH (20:43)
[2022-05-09] MEDS: MELATONIN 3 MG TAB PO PRN (20:55)
--- NOTE | 2022-05-10 00:18 | Communication Note ---
Date of Service: May 10, 2022 Notified by nursing of recurrent mild hypoglycemic episodes most likely 2/2 decreased PO intake. Reviewed chart. My changes: bsg goal 110-160->140-180. CF 20->30. carb ratio 12->20. Lantus 11u qam -> 7u qam.
[2022-05-10 07:21] LABS: Basophils # (auto) 0.02 K/uL (0-0.2); Basophils % (auto) 0.4 %; Eosinophils # (auto) 0.19 K/uL (0-0.50); Eosinophils % (auto) 4.3 %; Hematocrit (blood only) 25.3 % (40.1-51.0); Immature Granulocytes # (auto) 0.01 K/uL (0.00-0.02); Immature Granulocytes % (auto) 0.2 %; Lymphocytes # (auto) 1.12 K/uL (1.2-3.4); Lymphocytes % (auto) 25.2 %; Mean Corpuscular Hemoglobin 27.3 pg (25.0-34.0); Mean Corpuscular Hgb Conc 31.6 g/dL (32.0-36.0); Mean Corpuscular Volume 86.3 fL (80.0-100.0); Mean Platelet Volume 8.3 fL (9.4-12.4); Monocytes # (auto) 0.44 K/uL (0.24-0.82); Monocytes % (auto) 9.9 %; Neutrophils # (auto) 2.67 K/uL (1.4-6.5); Platelet Count 243 K/uL (130-400); RDW Standard Deviation 46.5 fL (36.4-46.3); Red Blood Count 2.93 M/uL (4.63-6.08); White Blood Count 4.45 K/ul (4.8-10.8)
[2022-05-10] MEDS: METOPROLOL TARTRATE 25 MG TAB PO SCH ×2 (07:39→20:17)
[2022-05-10] MEDS: DULoxetine HCL 60 MG CAP PO SCH ×2 (07:40→20:17)
[2022-05-10] MEDS: FINASTERIDE 5 MG TAB PO SCH (07:40)
[2022-05-10] MEDS: allopurinoL 100 MG TAB PO SCH (07:40)
[2022-05-10] MEDS: ASPIRIN 81 MG ECTAB PO SCH (07:40)
[2022-05-10] MEDS: FAMOTIDINE 20 MG TAB PO SCH ×2 (07:41→20:17)
[2022-05-10] MEDS: ARIPIprazole 1 MG/ML ORAL SOLN 150 ML BTL PO SCH (07:41)
[2022-05-10 07:46] LABS: Albumin Globulin Ratio 1.3 (0.9-2); Albumin Level 3.3 gm/dl (3.4-5.0); Bilirubin,Total 0.3 mg/dl (0.2-1.0); Calcium 7.7 mg/dl (8.5-10.1); Creatinine Clr Calc Pharmacy 84.8 ml/min; Est GFR (African American) 101.9 ml/min; Est GFR (Non-African American) 87.9 ml/min; Globulin 2.5 gm/dl (2.5-4.0); Phosphorus 2.9 mg/dl (2.5-4.9); Potassium 3.6 mmol/L (3.5-5.1); Total Protein 5.8 gm/dl (6.0-8.3)
[2022-05-10] MEDS: INSULIN ASPART PER UNIT SC SCH ×4 (07:51→20:34)
[2022-05-10 08:03] LABS: INR 1.3 (0.9-1.1); Partial Thromboplastin Ratio 1.7; Partial Thromboplastin Time 48.1 Seconds (21.0-31.0)
[2022-05-10] MEDS: HYDROmorphone INJ 0.5 MG/0.5 ML SYR IV PRN ×3 (08:03→20:29)
[2022-05-10] MEDS ORDERED: LANTUS PER UNIT CHARGE SQ SCH (09:00)
[2022-05-10] MEDS ORDERED: PANTOprazole 40 MG TAB PO SCH (09:00)
--- NOTE | 2022-05-10 15:07 | Hospitalist Progress Note ---
Date of Service May 10, 2022 Assessment & Plan (1) SBO (small bowel obstruction): Plan: Appears resolved; however, noted ongoing upper abdominal discomfort associated with acute decline in hemoglobin with no known bleeding; GI consulted; this issue appears unrelated to SBO (2) Anemia: Plan: Acute drop with no definitive bleeding but associated with upper abdominal discomfort; made PPI IV; held Coumadin, GI consulted; kept n.p.o. after midnight in case EGD contemplated; Lantus held; repeat hemoglobin p.m. if continuing decline to consider holding heparin and clearly if evidence of overt GI bleed (3) Syncope and collapse: Plan: Cause of original presentationexact etiology not clear; considered med induced which is possiblealpha-carmen plus high-dose Flomax; this issue resolved for now (4) Chest pain: Plan: Considered atypical for CAD; observe (5) Elevated troponin: Plan: Thought to be demand ischemia, type II NSTEMI; observe (6) CAD (coronary artery disease): Plan: h/o LAD stent remotely - continue asa - continue statin, metoprolol (7) Diabetes mellitus: Plan: Episodes of low sugars noted, changes noted and agreed, today Lantus held as above (8) BPH w urinary obs/LUTS: Plan: Was on Flomax 0.8 mg + prazosin (latter may have been due to psychiatric indication); both stopped; Proscar continued No issues in this regard reported if BPH symptoms recur can consider low-dose Flomax Consider urology follow-up (9) GERD (gastroesophageal reflux disease): Plan: GERD with esophagitis - continue H2 but PPI made IV (10) Pacemaker: Plan: Pacemaker is Medtronic [place] XT MRI [id number] SERIAL number [id number] - LEADS 4960 capsure EPI - MR conditional - NO - DDD with mode switch at 171 - low rate 90 upper track 120 - AT/AF >170 - VT >150 This was inserted following biatrial MAZE and clipping of left atrial appendage (11) Tricuspid valve replaced: Plan: Done at [facility] with his pacemaker placement- bioprosthesis -Was on Warfarin with goal reported 1.5-2.0 During episode of SBO was switched to IV heparin in case surgery became necessary; later, this issue resolved and Coumadin reintroduced with continuing heparin bridge; today Coumadin held in view of acute drop in hemoglobin -To be noted, cardiology recommends appropriate SBE prophylaxis for procedures Plan Observe mild intermittent leukopenia Admission and Anticipated Discharge Date Admission Date: May 02, 2022 Subjective Follow-up of original presentation with syncope, recent SBOcontinues to have upper abdominal discomfort; diarrheal stool but no known melena or bleeding Physical Exam Physical Exam: Constitutional and general: No acute distress, looks biologic age Head and face: No puffiness, atraumatic Eyes: No scleral icterus, extraocular movements normal Neck: Supple, no JVD Musculoskeletal: No acute joint swelling, no bony abnormalities Skin/dermatologic/integument: No rash, no purpura Hematologic and lymphatic: pallor +, no petechia Gastrointestinal/abdomen: Mildly distended, mildly tender but nonperitoneal Neurologic: Cranial nerves intact, nonfocal Psychiatry: Awake, alert, pleasant, communicative Cardiovascular: Heart rhythm regular, no rub, soft SM, no gallop Respiratory: Chest movements equal, no use of accessory muscles, no adventitious sounds Extremities: No edema, no cyanosis Results & Data Results & Data ([facility]) Vital Signs (Past 12 Hours) Vital Signs Temp Pulse Pulse Resp BP Pulse Ox O2 Del Method 05/10/22 11:08 36.8 C 90 16 124/86 98 Room Air 05/10/22 08:03 37.1 C 85 16 121/87 97 Room Air 05/10/22 07:31 89 05/10/22 03:08 36.9 C 90 18 117/75 98 Room Air Laboratory Results Laboratory Results - last 24 hr 05/09/22 05/09/22 05/09/22 16:23 20:01 20:33 WBC RBC Hgb Hct MCV MCH MCHC RDW Std Deviation RDW Coeff of Eliana Plt Count MPV Immature Gran % (Auto) Neut % (Auto) Lymph % (Auto) Bradford % (Auto) Eos % (Auto) Baso % (Auto) Neut # (Auto) Lymph # (Auto) [place] # (Auto) Eos # (Auto) Baso # (Auto) Immature Gran # (Auto) PT INR APTT PTT Ratio Sodium Potassium Chloride Carbon Dioxide Anion Gap BUN Creatinine Est Cr Clr Drug Dosing Est GFR ( Amer) Est GFR (Non-Af Amer) POC Glucose 80 65 L* 67 L* Fasting Glucose Calcium Phosphorus Magnesium Total Bilirubin AST ALT Alkaline Phosphatase Total Protein Albumin Globulin Albumin/Globulin Ratio 05/09/22 05/09/22 05/10/22 20:47 20:53 02:31 WBC RBC Hgb Hct MCV MCH MCHC RDW Std Deviation RDW Coeff of Eliana Plt Count MPV Immature Gran % (Auto) Neut % (Auto) Lymph % (Auto) [place] % (Auto) Eos % (Auto) Baso % (Auto) Neut # (Auto) Lymph # (Auto) [place] # (Auto) Eos # (Auto) Baso # (Auto) Immature Gran # (Auto) PT INR APTT PTT Ratio Sodium Potassium Chloride Carbon Dioxide Anion Gap BUN Creatinine Est Cr Clr Drug Dosing Est GFR ( Amer) Est GFR (Non-Af Amer) POC Glucose 69 L* 84 92 Fasting Glucose Calcium Phosphorus Magnesium Total Bilirubin AST ALT Alkaline Phosphatase Total Protein Albumin Globulin Albumin/Globulin Ratio 05/10/22 05/10/22 05/10/22 06:50 06:50 06:50 WBC 4.45 L RBC 2.93 L Hgb 8.0 L Hct 25.3 L MCV 86.3 MCH 27.3 MCHC 31.6 L RDW Std Deviation 46.5 H RDW Coeff of Eliana 15.0 H Plt Count 243 MPV 8.3 L Immature Gran % (Auto) 0.2 Neut % (Auto) 60.0 Lymph % (Auto) 25.2 [place] % (Auto) 9.9 Eos % (Auto) 4.3 Baso % (Auto) 0.4 Neut # (Auto) 2.67 Lymph # (Auto) 1.12 L [place] # (Auto) 0.44 Eos # (Auto) 0.19 Baso # (Auto) 0.02 Immature Gran # (Auto) 0.01 PT 14.0 H INR 1.3 H APTT 48.1 H* PTT Ratio 1.7 Sodium 138 Potassium 3.6 Chloride 108 H Carbon Dioxide 24 Anion Gap 6 BUN 10 Creatinine 0.95 Est Cr Clr Drug Dosing 84.8 Est GFR ( Amer) 101.9 Est GFR (Non-Af Amer) 87.9 POC Glucose Fasting Glucose 88 Calcium 7.7 L Phosphorus 2.9 Magnesium 2.0 Total Bilirubin 0.3 AST 11 L ALT 14 Alkaline Phosphatase 87 Total Protein 5.8 L Albumin 3.3 L Globulin 2.5 Albumin/Globulin Ratio 1.3 05/10/22 05/10/22 07:55 11:40 WBC RBC Hgb Hct MCV MCH MCHC RDW Std Deviation RDW Coeff of Eliana Plt Count MPV Immature Gran % (Auto) Neut % (Auto) Lymph % (Auto) Bradford % (Auto) Eos % (Auto) Baso % (Auto) Neut # (Auto) Lymph # (Auto) [place] # (Auto) Eos # (Auto) Baso # (Auto) Immature Gran # (Auto) PT INR APTT PTT Ratio Sodium Potassium Chloride Carbon Dioxide Anion Gap BUN Creatinine Est Cr Clr Drug Dosing Est GFR ( Amer) Est GFR (Non-Af Amer) POC Glucose 101 H 98 Fasting Glucose Calcium Phosphorus Magnesium Total Bilirubin AST ALT Alkaline Phosphatase Total Protein Albumin Globulin Albumin/Globulin Ratio PG Care Time/CCT Total # of Minutes Spent Total Time Spent with Patient: Total time spent is greater than 50% in coordination of care (as documented) at patient's floor/unit and/or counseling patient: Coding Level of Care Code 18046 Subseq Hosp Care Lvl 3 Diagnoses SBO (small bowel obstruction) K56.609 Anemia D64.9 Syncope and collapse R55 Chest pain R07.9 Elevated troponin R77.8 CAD (coronary artery disease) I25.10 Diabetes mellitus E11.9 BPH w urinary obs/LUTS N40.1; N13.8 GERD (gastroesophageal reflux disease) K21.9 Pacemaker Z95.0 Tricuspid valve replaced Z95.4
[2022-05-10] MEDS: HEPARIN SODIUM/DEXTROSE 25,000 UNITS/500 ML BAG IV SCH (15:34)
[2022-05-10] MEDS: PANTOprazole 40 MG in SYRINGE 0 ML IV SCH (20:15)
[2022-05-10] MEDS: ROSUVASTATIN CALCIUM 20 MG TAB PO SCH (20:15)
[2022-05-10] MEDS: FLUTICASONE FUROATE 200MCG 14 PUFFS/INHALER INH SCH (20:16)
[2022-05-10] MEDS: MELATONIN 3 MG TAB PO PRN (20:29)
[2022-05-10 20:38] LABS: Hemoglobin 8.5 g/dl (14.0-18.0)
[2022-05-10 20:55] LABS: Partial Thromboplastin Ratio 1.6
[2022-05-11 02:58] LABS: Basophils # (auto) 0.02 K/uL (0-0.2); Basophils % (auto) 0.5 %; Eosinophils # (auto) 0.17 K/uL (0-0.50); Eosinophils % (auto) 4.2 %; Hematocrit (blood only) 26.2 % (40.1-51.0); Hemoglobin 8.4 g/dl (14.0-18.0); Immature Granulocytes # (auto) 0.01 K/uL (0.00-0.02); Immature Granulocytes % (auto) 0.2 %; Lymphocytes # (auto) 1.22 K/uL (1.2-3.4); Lymphocytes % (auto) 30.2 %; Mean Corpuscular Hemoglobin 27.5 pg (25.0-34.0); Mean Corpuscular Hgb Conc 32.1 g/dL (32.0-36.0); Mean Corpuscular Volume 85.9 fL (80.0-100.0); Mean Platelet Volume 7.8 fL (9.4-12.4); Monocytes % (auto) 9.9 %; Neutrophils # (auto) 2.22 K/uL (1.4-6.5); Platelet Count 213 K/uL (130-400); RDW Coefficient of Variation 15.3 % (11.5-14.5); RDW Standard Deviation 46.6 fL (36.4-46.3); Red Blood Count 3.05 M/uL (4.63-6.08); White Blood Count 4.04 K/ul (4.8-10.8)
[2022-05-11 03:28] LABS: Albumin Globulin Ratio 1.2 (0.9-2); Albumin Level 3.2 gm/dl (3.4-5.0); Bilirubin,Total 0.3 mg/dl (0.2-1.0); Creatinine Clr Calc Pharmacy 82.2 ml/min; Est GFR (African American) 98.1 ml/min; Est GFR (Non-African American) 84.6 ml/min; Globulin 2.6 gm/dl (2.5-4.0); Magnesium 1.8 mg/dl (1.7-2.4); Phosphorus 3.7 mg/dl (2.5-4.9); Potassium 3.7 mmol/L (3.5-5.1); Total Protein 5.8 gm/dl (6.0-8.3)
[2022-05-11 03:31] LABS: INR 1.3 (0.9-1.1); Partial Thromboplastin Ratio 1.7; Prothrombin Time 14.1 Seconds (9.0-12.0)
[2022-05-11] MEDS: INSULIN ASPART PER UNIT SC SCH ×4 (09:00→20:22)
[2022-05-11] MEDS: ARIPIprazole 1 MG/ML ORAL SOLN 150 ML BTL PO SCH (09:06)
[2022-05-11] MEDS: PANTOprazole 40 MG in SYRINGE 0 ML IV SCH (09:06)
[2022-05-11] MEDS: METOPROLOL TARTRATE 25 MG TAB PO SCH ×2 (09:06→20:22)
[2022-05-11] MEDS: DULoxetine HCL 60 MG CAP PO SCH ×2 (09:06→20:21)
[2022-05-11] MEDS: ASPIRIN 81 MG ECTAB PO SCH (09:07)
[2022-05-11] MEDS: allopurinoL 100 MG TAB PO SCH (09:07)
[2022-05-11] MEDS: FAMOTIDINE 20 MG TAB PO SCH (09:07)
[2022-05-11] MEDS: FINASTERIDE 5 MG TAB PO SCH (09:07)
--- NOTE | 2022-05-11 10:58 | Gastrointestinal Consultation ---
Date of Consultation May 11, 2022 Assessment & Plan (1) Anemia: Pt is a 56 yo male seen today for epigastric abd pain and anemia. He denies any abd pain, n/v today. Also no glen s/s of GI bleeding. Did have hx of Type 3 paraesophageal hernia s/p repair recently and also is on Warfarin for hx of tricuspid valve replacement, s/p pacemaker placement as well. He has had EGD and colonoscopy both within the past year. - Diet as tolerated - Defer repeat endoscopic evaluation at this time - He should remain on PPI PO BID dosing - Monitor INR closely on Warfarin - Anemia workup: iron studies, FA, B12 levels - GI to sign off; pls recall prn Supervising Physician Co-Signing Physician Notes I have personally seen and examined the patient with BRIAN Kwon. Her note reflects my exam and findings. I agree with her impression and plan. Pt should be on a daily PPI as out patient. Jose Grady M.D. History of Present Illness Reason for Consultation: Epigastric pain, anemia Requesting Physician: Dr. Augustus Rivera Attending Physician: Dr. Jose Grady History of Present Illness Pt is a 56 yo male w medical history of: CVA, Tardive dyskinesia, DMII, CKD III, frequent syncopal episodes, Depression, anemia, elevated troponin level, CAD (Mi 2000 LAD stent s/p cath 02/22), Esophagitis. Patient is s/p pacemaker implantation at [facility] as well as s/p hiatal hernia repair in February 22, tricuspid valve replacement on Warfarin. He was admitted with syncope (unclear etiology, possibly orthostatic related), also had SBO which had resolved. GI consulted to evaluate patient for anemia. He was also complaining of epigastric abdominal pain. Noted Hgb was between 9-10 few days ago. Currently 8.4. Patient denies abdominal pain, nausea or vomiting. He is passing bowel movements and flatus. States that his bowel are not black or tarry. Also denies any rectal bleeding. His warfarin has been held. INR was never supratherapeutic. Last EGD was February 2022, noted to have type III paraesophageal hernia. Last colonoscopy was May 2021 noted to have diverticulosis in sigmoid colon and internal hemorrhoids. Allergies Allergy/AdvReac Type Severity Reaction Status Date / Time lisinopril Allergy Severe ANAPHYLAXIS Verified 05/01/22 15:05 ibuprofen Allergy Intermediate HIVES Verified 05/01/22 15:05 morphine Allergy Intermediate HIVES Verified 05/01/22 15:05 capsaicin Allergy Unknown Unknown Verified 05/01/22 15:05 phenytoin Allergy Unknown Unknown Verified 05/01/22 15:05 Home Medications Medication Instructions Recorded Confirmed Type aspirin 81 mg tablet,delayed 81 mg PO QAM 09/23/20 05/01/22 History release calcium carbonate 600 mg-vitamin 2 tab PO BID 09/23/20 05/01/22 History D3 5 mcg (200 unit) tablet rosuvastatin 20 mg tablet 20 mg PO QPM 09/23/20 05/01/22 History ciclesonide 160 mcg/actuation 1 puff inhalation BID 07/21/21 05/01/22 History aerosol inhaler (Alvesco) docusate sodium 100 mg capsule 200 mg PO BID 07/21/21 05/01/22 History polyethylene glycol 3350 17 gram 17 g PO DAILY #1 btl 07/24/21 05/01/22 Rx oral powder packet (Miralax) albuterol sulfate 90 mcg/actuation 2 puff inhalation QID PRN 02/06/22 05/01/22 History aerosol inhaler Shortness Of Breath aripiprazole 2 mg tablet (Abilify) 2 mg PO DAILY 02/06/22 05/01/22 History duloxetine 60 mg capsule,delayed 60 mg PO BID 02/06/22 05/01/22 History release insulin glargine 100 unit/mL 11 unit subcut DAILY 02/06/22 05/01/22 History subcutaneous solution insulin regular human 100 unit/mL 1 sliding scale dose subcut 02/06/22 05/01/22 History injection solution (Novolin R USEASDIRECTD PRN DEPENDING ON BSG'S Regular U-100 Insulin) tamsulosin 0.4 mg capsule 0.8 mg PO QPM 02/06/22 05/01/22 History famotidine 20 mg tablet 20 mg PO BID #60 tabs 02/25/22 05/01/22 Rx acetaminophen 325 mg tablet 650 mg PO QID 05/01/22 05/01/22 History (Tylenol) furosemide 40 mg tablet (Lasix) 40 mg PO DAILY 05/01/22 05/01/22 History potassium chloride 20 mEq 20 meq PO BID 05/01/22 05/01/22 History tablet,extended release warfarin 2 mg tablet 2 mg PO HS 05/01/22 05/01/22 History warfarin 2.5 mg tablet 2.5 mg PO HS 05/01/22 05/01/22 History Patient History Medical History Angina pectoris Asthma Atypical chest pain Bowel obstruction CAD (coronary artery disease) Chest pain Depression DM type 2 (diabetes mellitus, type 2) Gout Head injury History of CVA (cerebrovascular accident) Hx SBO Hyperlipidemia Hypertension Iron deficiency anemia Pacemaker Peptic ulcer disease Pulmonary hypertension Sarcoidosis Skin cancer Syncope Tricuspid regurgitation Surgical History H/O exploratory laparotomy "05/31/2015 with lysis of adhesions, release of bowel obstruction, repair of incisional hernia" H/O ventral hernia repair History of back surgery History of repair of hiatal hernia (02/19/22) Laparoscopic Repair of Hiatal Hernia; partial gastric fundoplication; posterior gastropexy(Not Applicable) - Luke De La Fuente, DO S/P cardiac cath S/P coronary artery stent placement (05/07/13) "2000" Tricuspid valve replaced Family History Mother , age 67 Lung cancer Father , age 68 Lung cancer Brother Stroke age 55 Social History Smoking Status: Never smoker Hx Alcohol Use: No Hx Substance Use: No Preferred Language: Korean Communication Ability: Effective Visual Impairment: No Limitations 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 Required: No Beliefs That Will Affect Care: None marital status: Single Current Living Situation: Other Current Living Situation Comment: skilled nursing - [facility] Other Information That Helps Us Care for You: No Feels Safe at Home: Yes Safety Concerns: Feels Safe At This Time Assistive Devices: None Review of Systems Review of Systems: All systems reviewed & are unremarkable except as noted in HPI & below Physical Exam Constitutional: WD/WN, vitals as above well groomed, cooperative and comfortable Eyes: PERRL, conjunctivae normal, anicteric sclerae ENMT: external ear and nose normal, oropharynx normal Respiratory: normal respiratory effort, lungs clear to auscultation Cardiovascular: RRR, no murmur, no edema Gastrointestinal (Abdomen): normal bowel sounds, soft, nontender, no hepatosplenomegaly Skin: no rashes, warm and dry no jaundice Psychiatric: A+Ox3, euthymic affect Lymphatic: no lymphedema Results & Data ([facility]) Vital Signs (Past 12 Hours) Vital Signs Temp Pulse Pulse Resp BP BP Pulse Ox 05/11/22 10:01 89 05/11/22 07:40 37.2 C 90 18 138/97 98 05/11/22 04:51 90 05/11/22 03:06 36.8 C 90 20 109/73 98 05/10/22 23:37 37.1 C 90 18 107/70 97 O2 Del Method 05/11/22 10:01 05/11/22 07:40 Room Air 05/11/22 04:51 05/11/22 03:06 Room Air 05/10/22 23:37 Room Air
[2022-05-11 12:18] LABS: Iron 49 mcg/dl (35-175); Transferrin 163 mg/dl (200-360)
--- NOTE | 2022-05-11 13:11 | Hospitalist Progress Note ---
Date of Service May 11, 2022 Assessment & Plan (1) SBO (small bowel obstruction): Plan: Patient reports no bowel movement in 3 days, previous report of possible small bowel movements? Discussed with nursing, will follow closely for all bowel movements/toileting No flatus/BM in 3 days per patient GI consulted for pain. Recommended to defer endoscopic evaluation, continue PPI, and anemia work-up as below. Signed off, appreciate recommendations (2) Anemia: Plan: Hemoglobin No observed GI bleeding, GI consulted no indication for scope at this time Patient on clears Hemoglobin 9.1--> 8.0--> 8.5--> 8.4 Trend CBC for stability Heparin resumed for valve as below iron, folic acid, B12 pending (3) Syncope and collapse: Plan: Cause of original presentationexact etiology not clear; considered med induced which is possiblealpha-carmen plus high-dose Flomax; this issue resolved for now (4) Chest pain: Plan: Considered atypical for CAD; observe No chest pain 05/11 (5) Elevated troponin: Plan: Thought to be demand ischemia, type II NSTEMI; observe (6) CAD (coronary artery disease): Plan: h/o LAD stent remotely - continue asa - continue statin, metoprolol (7) Diabetes mellitus: Plan: Episodes of low sugars noted, changes noted and agreed, today Lantus held as above (8) BPH w urinary obs/LUTS: Plan: Was on Flomax 0.8 mg + prazosin (latter may have been due to psychiatric indication); both stopped; Proscar continued No issues in this regard reported if BPH symptoms recur can consider low-dose Flomax Consider urology follow-up as outpatient (9) GERD (gastroesophageal reflux disease): Plan: GERD with esophagitis - continue H2 but PPI made IV (10) Pacemaker: Plan: Pacemaker is [employer] Nai XT DR ESTES [id number] SERIAL number [id number] - LEADS [id number] capsure EPI - MR conditional - NO - DDD with mode switch at 171 - low rate 90 upper track 120 - AT/AF >170 - VT >150 This was inserted following biatrial MAZE and clipping of left atrial appendage (11) Tricuspid valve replaced: Plan: Done at [facility] with his pacemaker placement- bioprosthesis -Was on Warfarin with goal reported 1.5-2.0 During episode of SBO was switched to IV heparin in case surgery became necessary; later, this issue resolved and Coumadin reintroduced with continuing heparin bridge; today Coumadin held in view of acute drop in hemoglobin -To be noted, cardiology recommends appropriate SBE prophylaxis for procedures Heparin paused while pending GI assessment above, resumed and will need bridge back to Coumadin if hemoglobin remained stable Plan Observe mild intermittent leukopenia Admission and Anticipated Discharge Date Admission Date: May 02, 2022 Subjective Seen at bedside. Continues to have left mid/lower abdominal pain. Denies bowel movement in last 3 days. Denies chest pain, chest pressure, lightheadedness, dizziness, shortness of breath. Endorses intermittent nausea without vomiting. Denies flatus. No fever/chills. Review of Systems Review of Systems: All systems reviewed & are unremarkable except as noted in Subjective Physical Exam Physical Exam: General: A&Ox3. NAD. Cooperative. HEENT: Atraumatic, normocephalic. Patient/hearing grossly intact Pulm: CTAB A&P. -wheezes, -rales, -rhonchi. Symmetrical chest rise. No increase in work of breathing. No respiratory distress. Cardiac: RRR, -mrg. Radial pulses intact and symmetrical. Abdominal: Noted palpation at left lower quadrant, nontender in the epigastrium, no guarding, no rebound. Bowel sounds diminished Results & Data Results & Data ([facility]) Vital Signs (Past 12 Hours) Vital Signs Temp Pulse Pulse Resp BP Pulse Ox O2 Del Method 05/11/22 11:35 37.1 C 88 20 123/85 98 Room Air 05/11/22 10:01 89 05/11/22 07:40 37.2 C 90 18 138/97 98 Room Air 05/11/22 04:51 90 05/11/22 03:06 36.8 C 90 20 109/73 98 Room Air PG Care Time/CCT Total # of Minutes Spent Total Time Spent with Patient: Total time spent is greater than 50% in coordination of care (as documented) at patient's floor/unit and/or counseling patient: Coding Level of Care Code 03978 Subseq Hosp Care Lvl 2 Diagnoses SBO (small bowel obstruction) K56.609 Anemia D64.9 Syncope and collapse R55 Chest pain R07.9 Elevated troponin R77.8 CAD (coronary artery disease) I25.10 Diabetes mellitus E11.9 BPH w urinary obs/LUTS N40.1; N13.8 GERD (gastroesophageal reflux disease) K21.9 Pacemaker Z95.0 Tricuspid valve replaced Z95.4
[2022-05-11] MEDS: HYDROmorphone INJ 0.5 MG/0.5 ML SYR IV PRN ×2 (15:00→20:20)
[2022-05-11] MEDS: ONDANSETRON INJ 2 MG/ML 2 ML VIAL IV PRN (15:01)
[2022-05-11] MEDS: HEPARIN SODIUM/DEXTROSE 25,000 UNITS/500 ML BAG IV SCH (17:19)
[2022-05-11] MEDS: MELATONIN 3 MG TAB PO PRN (20:20)
[2022-05-11] MEDS: FLUTICASONE FUROATE 200MCG 14 PUFFS/INHALER INH SCH (20:21)
[2022-05-11] MEDS: PANTOprazole 40 MG TAB PO SCH (20:23)
[2022-05-11] MEDS: ROSUVASTATIN CALCIUM 20 MG TAB PO SCH (20:24)
[2022-05-12] MEDS: METOPROLOL TARTRATE 25 MG TAB PO SCH ×2 (07:26→20:05)
[2022-05-12] MEDS: DULoxetine HCL 60 MG CAP PO SCH ×2 (07:26→20:04)
[2022-05-12] MEDS: allopurinoL 100 MG TAB PO SCH (07:26)
[2022-05-12] MEDS: PANTOprazole 40 MG TAB PO SCH ×2 (07:27→20:06)
[2022-05-12] MEDS: ASPIRIN 81 MG ECTAB PO SCH (07:27)
[2022-05-12] MEDS: FINASTERIDE 5 MG TAB PO SCH (07:27)
[2022-05-12] MEDS: ARIPIprazole 1 MG/ML ORAL SOLN 150 ML BTL PO SCH (07:28)
[2022-05-12] MEDS: INSULIN ASPART PER UNIT SC SCH ×4 (07:32→20:04)
[2022-05-12 07:42] LABS: Hematocrit (blood only) 26.4 % (40.1-51.0); Hemoglobin 8.6 g/dl (14.0-18.0); Mean Corpuscular Hemoglobin 27.3 pg (25.0-34.0); Mean Corpuscular Hgb Conc 32.6 g/dL (32.0-36.0); Mean Corpuscular Volume 83.8 fL (80.0-100.0); Mean Platelet Volume 8.1 fL (9.4-12.4); Platelet Count 206 K/uL (130-400); RDW Coefficient of Variation 15.4 % (11.5-14.5); RDW Standard Deviation 45.5 fL (36.4-46.3); Red Blood Count 3.15 M/uL (4.63-6.08); White Blood Count 4.25 K/ul (4.8-10.8)
[2022-05-12 07:55] LABS: INR 1.2 (0.9-1.1); Partial Thromboplastin Ratio 1.5; Partial Thromboplastin Time 40.7 Seconds (21.0-31.0); Prothrombin Time 12.8 Seconds (9.0-12.0)
[2022-05-12 08:03] LABS: BUN Creatinine Ratio 8.3 (10-20); Calcium 8.6 mg/dl (8.5-10.1); Creatinine Clr Calc Pharmacy 83.9 ml/min; Est GFR (African American) 100.6 ml/min; Est GFR (Non-African American) 86.8 ml/min; Potassium 3.6 mmol/L (3.5-5.1)
[2022-05-12 08:10] LABS: Basophils # (auto) 0.02 K/uL (0-0.2); Basophils % (auto) 0.5 %; Eosinophils # (auto) 0.15 K/uL (0-0.50); Eosinophils % (auto) 3.5 %; Immature Granulocytes # (auto) 0.01 K/uL (0.00-0.02); Immature Granulocytes % (auto) 0.2 %; Lymphocytes # (auto) 1.13 K/uL (1.2-3.4); Lymphocytes % (auto) 26.6 %; Monocytes # (auto) 0.41 K/uL (0.24-0.82); Monocytes % (auto) 9.6 %; Neutrophils # (auto) 2.53 K/uL (1.4-6.5); Neutrophils % (auto) 59.6 %
[2022-05-12] MEDS: HYDROmorphone INJ 0.5 MG/0.5 ML SYR IV PRN ×3 (09:10→22:25)
[2022-05-12] MEDS ORDERED: bisacodyL 5 MG TABEC PO PRN (10:49)
[2022-05-12] MEDS: POLYETHYLENE (MIRALAX) 17 GM PACK PO SCH ×2 (11:14→20:07)
--- NOTE | 2022-05-12 13:04 | Hospitalist Progress Note ---
Date of Service May 12, 2022 Assessment & Plan (1) SBO (small bowel obstruction): Plan: Patient reports no bowel movement in 3-4 days, previous report of possible small bowel movements? Discussed with nursing, will follow closely for all bowel movements/toileting No flatus/BM in prior 4 days GI consulted for pain. Recommended to defer endoscopic evaluation, continue PPI, and anemia work-up as below. Signed off, appreciate recommendations Patient clinically regressing, Dx includes ileus versus SBO. Diet downgraded to clears with bowel regimen. KUB pending. Continue to worsen or FAIL obstruction, n.p.o. Patient was not able to tolerate NGT attempts previously which were unsuccessful. (2) Anemia: Plan: Hemoglobin No observed GI bleeding, GI consulted no indication for scope at this time Patient on clears Hemoglobin stable Trend CBC for stability Heparin resumed for velar disease as below Iron panel withNormal ferritin. B12 and folate are normal. (3) Syncope and collapse: Plan: Cause of original presentation exact etiology not clear; considered med induced which is possibl ealpha-carmen plus high-dose Flomax; this issue resolved for now (4) Chest pain: Plan: Considered atypical for CAD; observe No chest pain 05/11-05/12 (5) Elevated troponin: Plan: Thought to be demand ischemia, type II NSTEMI; observe (6) CAD (coronary artery disease): Plan: h/o LAD stent remotely - continue asa - continue statin, metoprolol (7) Diabetes mellitus: Plan: Episodes of low sugars noted, changes noted and agreed, today Lantus held as above (8) BPH w urinary obs/LUTS: Plan: Was on Flomax 0.8 mg + prazosin (latter may have been due to psychiatric indication); both stopped; Proscar continued No issues in this regard reported. Continues able to void 05/12 if BPH symptoms recur can consider low-dose Flomax Consider urology follow-up as outpatient (9) GERD (gastroesophageal reflux disease): Plan: GERD with esophagitis - continue H2 but PPI made IV (10) Pacemaker: Plan: Pacemaker is [employer] Nai XT DR ESTES [id number] SERIAL number [id number] - LEADS [id number] capsure EPI - MR conditional - NO - DDD with mode switch at 171 - low rate 90 upper track 120 - AT/AF >170 - VT >150 This was inserted following biatrial MAZE and clipping of left atrial appendage (11) Tricuspid valve replaced: Plan: Done at [facility] with his pacemaker placement- bioprosthesis -Was on Warfarin with goal reported 1.5-2.0 During episode of SBO was switched to IV heparin in case surgery became necessary; later, this issue resolved and Coumadin reintroduced with continuing heparin bridge; today Coumadin held in view of acute drop in hemoglobin -Discussed with cardiology, recommend appropriate SBE prophylaxis Heparin paused while pending GI assessment above, resumed and bridging back to Coumadin Plan Observe mild intermittent leukopenia Admission and Anticipated Discharge Date Admission Date: May 02, 2022 Subjective Seen at bedside today. Continues to have mid abdominal pain, has not changed. He reports he has tried little to food yesterday but this made him feel nauseous without emesis. He has had no flatus, no bowel movement. Confirmed with nursing no BM, concern for return to ileus versus SBO. Denies fever, chills, sweats, lightheadedness, dizziness. No rash. No chest pain. No shortness of breath. Review of Systems Review of Systems: All systems reviewed & are unremarkable except as noted in Subjective Physical Exam Physical Exam: General: A&Ox3. NAD. Cooperative. HEENT: Atraumatic, normocephalic. Patient/hearing grossly intact Pulm: CTAB A&P. -wheezes, -rales, -rhonchi. Symmetrical chest rise. No increase in work of breathing. No respiratory distress. Cardiac: RRR, -mrg. Radial pulses intact and symmetrical. Abdominal: Tender to palpation in central and at left lower quadrant, nontender in the epigastrium, no guarding, no rebound. Bowel sounds diminished Results & Data Results & Data ([facility]) Vital Signs (Past 12 Hours) Vital Signs Temp Pulse Pulse Resp BP Pulse Ox O2 Del Method 05/12/22 11:47 37.0 C 88 18 125/83 96 Room Air 05/12/22 07:39 36.8 C 89 18 135/89 97 Room Air 05/12/22 07:13 89 05/12/22 04:04 37.2 C 82 18 129/88 98 Room Air PG Care Time/CCT Total # of Minutes Spent Total Time Spent with Patient: Total time spent is greater than 50% in coordination of care (as documented) at patient's floor/unit and/or counseling patient: Coding Level of Care Code 62022 Subseq Hosp Care Lvl 2 Diagnoses SBO (small bowel obstruction) K56.609 Anemia D64.9 Syncope and collapse R55 Chest pain R07.9 Elevated troponin R77.8 CAD (coronary artery disease) I25.10 Diabetes mellitus E11.9 BPH w urinary obs/LUTS N40.1; N13.8 GERD (gastroesophageal reflux disease) K21.9 Pacemaker Z95.0 Tricuspid valve replaced Z95.4
--- NOTE | 2022-05-12 13:54 | XRay Report ---
XR KUB/Abdomen 1 view CLINICAL HISTORY: sbo/ileus TECHNIQUE: 1 view of the abdomen was obtained. Comparison: Comparison is made to CT abdomen pelvis 05/04/2022 FINDINGS: Lung bases are unremarkable. The osseous structures are grossly unremarkable. A few gas-distended loo ps of small bowel are seen without glen dilation or air-fluid levels. A moderate amount of stool is noted within the large bowel. IMPRESSION: Moderate stool burden is again seen. No evidence of obstruction however there are prominent gas diste nded loops of small bowel which may represent ileus. ACT 112: Negative or not required by law. Electronically signed by: Bakari Novak M.D. 05/12/2022 1:52 PM
[2022-05-12] MEDS: WARFARIN SOD 2 MG TAB PO SCH (15:38)
[2022-05-12 17:23] LABS: Partial Thromboplastin Ratio 1.5
[2022-05-12] MEDS: HEPARIN SODIUM/DEXTROSE 25,000 UNITS/500 ML BAG IV SCH (18:06)
[2022-05-12] MEDS: MELATONIN 3 MG TAB PO PRN (20:03)
[2022-05-12] MEDS: FLUTICASONE FUROATE 200MCG 14 PUFFS/INHALER INH SCH (20:04)
[2022-05-12] MEDS: ROSUVASTATIN CALCIUM 20 MG TAB PO SCH (20:06)
[2022-05-13 01:16] LABS: Partial Thromboplastin Ratio 1.2
[2022-05-13] MEDS ORDERED: HEPARIN IV BOLUS 3,000 UNITS in SYRINGE 0 ML IV ONE (01:45)
[2022-05-13 07:40] LABS: Hematocrit (blood only) 29.3 % (40.1-51.0); Hemoglobin 9.3 g/dl (14.0-18.0); Mean Corpuscular Hemoglobin 27.3 pg (25.0-34.0); Mean Corpuscular Hgb Conc 31.7 g/dL (32.0-36.0); Mean Corpuscular Volume 85.9 fL (80.0-100.0); Mean Platelet Volume 7.7 fL (9.4-12.4); Platelet Count 178 K/uL (130-400); RDW Coefficient of Variation 15.6 % (11.5-14.5); RDW Standard Deviation 47.2 fL (36.4-46.3); Red Blood Count 3.41 M/uL (4.63-6.08); White Blood Count 4.33 K/ul (4.8-10.8)
[2022-05-13 08:10] LABS: Basophils # (auto) 0.03 K/uL (0-0.2); Basophils % (auto) 0.7 %; Eosinophils # (auto) 0.16 K/uL (0-0.50); Eosinophils % (auto) 3.7 %; Immature Granulocytes # (auto) 0.01 K/uL (0.00-0.02); Immature Granulocytes % (auto) 0.2 %; Lymphocytes # (auto) 1.23 K/uL (1.2-3.4); Lymphocytes % (auto) 28.4 %; Monocytes # (auto) 0.38 K/uL (0.24-0.82); Monocytes % (auto) 8.8 %; Neutrophils # (auto) 2.52 K/uL (1.4-6.5); Neutrophils % (auto) 58.2 %
[2022-05-13 08:15] LABS: INR 1.2 (0.9-1.1); Prothrombin Time 12.4 Seconds (9.0-12.0)
[2022-05-13 08:16] LABS: Partial Thromboplastin Time 54.1 Seconds (21.0-31.0)
[2022-05-13 08:30] LABS: BUN Creatinine Ratio 7.3 (10-20); Calcium 9.1 mg/dl (8.5-10.1); Creatinine Clr Calc Pharmacy 83.9 ml/min; Est GFR (African American) 100.6 ml/min; Est GFR (Non-African American) 86.8 ml/min; Potassium 3.9 mmol/L (3.5-5.1)
[2022-05-13] MEDS: METOPROLOL TARTRATE 25 MG TAB PO SCH ×2 (08:33→21:06)
[2022-05-13] MEDS: allopurinoL 100 MG TAB PO SCH (08:33)
[2022-05-13] MEDS: FINASTERIDE 5 MG TAB PO SCH (08:33)
[2022-05-13] MEDS: PANTOprazole 40 MG TAB PO SCH ×2 (08:33→21:07)
[2022-05-13] MEDS: ASPIRIN 81 MG ECTAB PO SCH (08:33)
[2022-05-13] MEDS: DULoxetine HCL 60 MG CAP PO SCH ×2 (08:33→21:07)
[2022-05-13] MEDS: ARIPIprazole 1 MG/ML ORAL SOLN 150 ML BTL PO SCH (08:34)
[2022-05-13] MEDS: POLYETHYLENE (MIRALAX) 17 GM PACK PO SCH ×2 (08:34→21:06)
[2022-05-13] MEDS: INSULIN ASPART PER UNIT SC SCH ×4 (08:35→21:18)
--- NOTE | 2022-05-13 08:35 | Hospitalist Progress Note ---
Date of Service May 13, 2022 Assessment & Plan (1) SBO (small bowel obstruction): Plan: previously resolved, but no stool , kub shows increaseds stool burdon increase cathartics' Gi ocnsult did defer endoscopic evaluation, continue PPI, and anemia work-up (2) Anemia: Plan: Hemoglobin stable No observed GI bleeding, GI consulted no indication for scope at this time Patient on clears Iron panel withNormal ferritin. B12 and folate are normal. (3) Syncope and collapse: Plan: Cause of original presentation exact etiology not clear; considered med induced which is possibl ealpha-carmen plus high-dose Flomax; this issue resolved for now (4) Chest pain: Plan: Considered atypical for CAD; observe No chest pain 05/11-05/13 (5) Elevated troponin: Plan: Thought to be demand ischemia, type II NSTEMI; observe (6) CAD (coronary artery disease): Plan: h/o LAD stent remotely - continue asa - continue statin, metoprolol (7) Diabetes mellitus: Plan: Episodes of low sugars noted, changes noted and agreed, today Lantus held as above (8) BPH w urinary obs/LUTS: Plan: Was on Flomax 0.8 mg + prazosin (latter may have been due to psychiatric indication); both stopped; Proscar continued Consider urology follow-up as outpatient (9) GERD (gastroesophageal reflux disease): Plan: GERD with esophagitis - continue H2 but PPI made IV (10) Pacemaker: Plan: Pacemaker is [employer] Nai XT DR ESTES [id number] SERIAL number [id number] - LEADS [id number] capsure EPI - MR conditional - NO - DDD with mode switch at 171 - low rate 90 upper track 120 - AT/AF >170 - VT >150 This was inserted following biatrial MAZE and clipping of left atrial appendage, tricuspid replacement (11) Tricuspid valve replaced: Plan: Done at [facility] with his pacemaker placement- bioprosthesis -Was on Warfarin with goal reported 1.5-2.0 During episode of SBO was switched to IV heparin in case surgery became necessary; later, this issue resolved and Coumadin reintroduced with continuing heparin bridge; -Discussed with cardiology, recommend appropriate SBE prophylaxis Heparin paused while pending GI assessment above, resumed and bridging back to Coumadin Plan Observe mild intermittent leukopenia Admission and Anticipated Discharge Date Admission Date: May 02, 2022 Subjective pt still with some abdominal pain, no real bm, hgb has been stable Review of Systems Review of Systems: Mild distress and fatigue no headache, no visual changes no speech or swallowing issues no chest pain, pressure or palpitations no shortness of breath, cough or wheezes epigastric abdominal pain, nausea or vomiting, does have continued constipation no dysuria, hematuria or frequency no focal joint pain or swelling no back pain, CVA tenderness or radicular pain no bruising, bleeding or rashes no focal signs of weakness or numbness or altered sensation no complaints of anxiety or depression.. Physical Exam Physical Exam: The patient appeared well nourished and normally developed. Vital signs as documented. Head exam is normocephalic atraumatic Neck is without JVD, thyromegaly, or carotid bruits. Lungs are clear to auscultation, no focal loss of breath sounds Cardiac exam, Rhythm is regular.. No murmurs, rubs or gallops. Abdominal exam reveals hyperactive bowel sounds, soft non tender, no masses Extremities are nonedematous and both pedal pulses are present Neurologic exam is alert and oriented, no focal loss of strength or sensation Skin is without bruises or rashes Psychologically is without concerns for anxiety or depression.. Results & Data Results & Data ([facility]) Vital Signs (Past 12 Hours) Vital Signs Temp Pulse Pulse Resp BP Pulse Ox O2 Del Method 05/13/22 07:49 97.9 F 89 18 138/91 98 Room Air 05/13/22 04:25 98.2 F 84 18 159/108 H 97 Room Air 05/12/22 22:17 90 05/12/22 23:39 98.8 F 89 18 128/89 95 Room Air PG Care Time/CCT Total # of Minutes Spent Total Time Spent with Patient: Total time spent is greater than 50% in coordination of care (as documented) at patient's floor/unit and/or counseling patient: Coding Level of Care Code 82851 Subseq Hosp Care Lvl 3 Diagnoses SBO (small bowel obstruction) K56.609 Anemia D64.9 Syncope and collapse R55 Chest pain R07.9 Elevated troponin R77.8 CAD (coronary artery disease) I25.10 Diabetes mellitus E11.9 BPH w urinary obs/LUTS N40.1; N13.8 GERD (gastroesophageal reflux disease) K21.9 Pacemaker Z95.0 Tricuspid valve replaced Z95.4
[2022-05-13] MEDS ORDERED: SENNOSIDES 8.8 MG/5 ML UDC PO ONE (08:37)
[2022-05-13] MEDS: HYDROmorphone INJ 0.5 MG/0.5 ML SYR IV PRN ×3 (08:43→21:13)
[2022-05-13] MEDS: HEPARIN SODIUM/DEXTROSE 25,000 UNITS/500 ML BAG IV SCH ×2 (12:40→16:20)
[2022-05-13] MEDS: WARFARIN SOD 2 MG TAB PO SCH (16:08)
[2022-05-13] MEDS: ROSUVASTATIN CALCIUM 20 MG TAB PO SCH (21:06)
[2022-05-13] MEDS: FLUTICASONE FUROATE 200MCG 14 PUFFS/INHALER INH SCH (21:08)
[2022-05-13] MEDS: SENNA 8.6 MG TAB PO SCH (21:14)
[2022-05-13] MEDS: MELATONIN 3 MG TAB PO PRN (21:14)
[2022-05-14 07:11] LABS: Hematocrit (blood only) 28.7 % (40.1-51.0); Hemoglobin 9.4 g/dl (14.0-18.0); Mean Corpuscular Hemoglobin 27.3 pg (25.0-34.0); Mean Corpuscular Hgb Conc 32.8 g/dL (32.0-36.0); Mean Corpuscular Volume 83.4 fL (80.0-100.0); Mean Platelet Volume 8.5 fL (9.4-12.4); Platelet Count 211 K/uL (130-400); RDW Coefficient of Variation 15.2 % (11.5-14.5); RDW Standard Deviation 45.4 fL (36.4-46.3); Red Blood Count 3.44 M/uL (4.63-6.08); White Blood Count 4.43 K/ul (4.8-10.8)
[2022-05-14 07:33] LABS: BUN Creatinine Ratio 5.3 (10-20); Calcium 9.4 mg/dl (8.5-10.1); Creatinine Clr Calc Pharmacy 85.7 ml/min; Est GFR (African American) 103.2 ml/min; Potassium 3.9 mmol/L (3.5-5.1)
[2022-05-14 07:35] LABS: Partial Thromboplastin Ratio 1.9
[2022-05-14] MEDS: allopurinoL 100 MG TAB PO SCH (10:01)
[2022-05-14] MEDS: INSULIN ASPART PER UNIT SC SCH ×4 (10:01→21:45)
[2022-05-14] MEDS: SENNA 8.6 MG TAB PO SCH ×2 (10:02→21:46)
[2022-05-14] MEDS: ARIPIprazole 1 MG/ML ORAL SOLN 150 ML BTL PO SCH (10:02)
[2022-05-14] MEDS: ASPIRIN 81 MG ECTAB PO SCH (10:02)
[2022-05-14] MEDS: POLYETHYLENE (MIRALAX) 17 GM PACK PO SCH ×2 (10:02→21:46)
[2022-05-14] MEDS: FINASTERIDE 5 MG TAB PO SCH (10:02)
[2022-05-14] MEDS: METOPROLOL TARTRATE 25 MG TAB PO SCH ×2 (10:02→21:47)
[2022-05-14] MEDS: DULoxetine HCL 60 MG CAP PO SCH ×2 (10:02→21:48)
[2022-05-14] MEDS: PANTOprazole 40 MG TAB PO SCH ×2 (10:02→21:48)
[2022-05-14] MEDS: ONDANSETRON INJ 2 MG/ML 2 ML VIAL IV PRN ×2 (10:04→17:54)
[2022-05-14] MEDS: HEPARIN SODIUM/DEXTROSE 25,000 UNITS/500 ML BAG IV SCH ×2 (10:37→13:39)
--- NOTE | 2022-05-14 10:43 | XRay Report ---
KUB HISTORY: Acute generalized abdominal pain reported constipation eval for stool burdeon COMPARISON: KUB 05/12/2022, CT 05/04/2020- FINDINGS: A neurostimulator device battery pack projects over the right lower quadrant. The imaged le ads appear intact extending superiorly outside the [id number]. Nonobstructed bowel gas pattern. Th ere is moderate to extensive fecal retention within the ascending colon, splenic flexure and descendi ng colon with mild gaseous distention of the rectosigmoid. Pelvic basin calcifications redemonstrated suggestive of phleboliths. No renal calculi. No ureteral calculi. No pneumoperitoneum or pneumatosi s. No fracture. IMPRESSION: 1. Nonobstructive bowel gas pattern. 2. Moderate to extensive fecal retention of the ascending, transverse and descending colon. ACT 112: Negative or not required by law. The above report was generated using voice recognition software. It may contain grammatical, syntax o r spelling errors. Electronically signed by: Christopher Byers M.D. 05/14/2022 10:41 AM
[2022-05-14] MEDS: HYDROmorphone INJ 0.5 MG/0.5 ML SYR IV PRN (11:46)
[2022-05-14] MEDS: WARFARIN SOD 2 MG TAB PO SCH (16:19)
--- NOTE | 2022-05-14 20:04 | Hospitalist Progress Note ---
Date of Service May 14, 2022 Assessment & Plan (1) SBO (small bowel obstruction): Plan: previously resolved, but no stool , kub shows increaseds stool burdon once again on 05/14/22, will use go daniel tonigt to see if has stool output Gi consult did defer endoscopic evaluation, continue PPI, and anemia work-up (2) Anemia: Plan: Hemoglobin stable No observed GI bleeding, GI consulted no indication for scope at this time Patient on clears Iron panel withNormal ferritin. B12 and folate are normal. (3) Syncope and collapse: Plan: Cause of original presentation exact etiology not clear; considered med induced which is possiblealpha- carmen plus high-dose Flomax; this issue resolved for now (4) Chest pain: Plan: Considered atypical for CAD; observe No chest pain 05/11-05/13 (5) Elevated troponin: Plan: Thought to be demand ischemia, type II NSTEMI; observe (6) CAD (coronary artery disease): Plan: h/o LAD stent remotely - continue asa - continue statin, metoprolol (7) Diabetes mellitus: Plan: Episodes of low sugars noted, changes noted and agreed, today Lantus held as above (8) BPH w urinary obs/LUTS: Plan: Was on Flomax 0.8 mg + prazosin (latter may have been due to psychiatric indication); both stopped; Proscar continued Consider urology follow-up as outpatient (9) GERD (gastroesophageal reflux disease): Plan: GERD with esophagitis - continue H2 but PPI made IV (10) Pacemaker: Plan: Pacemaker is Medtronic Nai XT DR ESTES [id number] SERIAL number [id number] - LEADS 4968 capsure EPI - MR conditional - NO - DDD with mode switch at 171 - low rate 90 upper track 120 - AT/AF >170 - VT >150 This was inserted following biatrial MAZE and clipping of left atrial appendage, tricuspid replacement (11) Tricuspid valve replaced: Plan: [place] [facility]- bioprosthesis -Was on Warfarin with goal reported 1.5-2.0 During episode of SBO was switched to IV heparin in case surgery became necessary; later, this issue resolved and Coumadin reintroduced with continuing heparin bridge; -Discussed with cardiology, recommend appropriate SBE prophylaxis Heparin paused while pending GI assessment above, resumed and bridging back to Coumadin Plan Observe mild intermittent leukopenia Admission and Anticipated Discharge Date Admission Date: May 02, 2022 Subjective pt still with some abdominal pain, no real bm, hgb has been stable kub shows significant stool retention Review of Systems Review of Systems: Mild distress and fatigue no headache, no visual changes no speech or swallowing issues no chest pain, pressure or palpitations no shortness of breath, cough or wheezes epigastric abdominal pain, nausea or vomiting, does have continued constipation no dysuria, hematuria or frequency no focal joint pain or swelling no back pain, CVA tenderness or radicular pain no bruising, bleeding or rashes no focal signs of weakness or numbness or altered sensation no complaints of anxiety or depression.. Physical Exam Physical Exam: The patient appeared well nourished and normally developed. Vital signs as documented. Head exam is normocephalic atraumatic Neck is without JVD, thyromegaly, or carotid bruits. Lungs are clear to auscultation, no focal loss of breath sounds Cardiac exam, Rhythm is regular.. No murmurs, rubs or gallops. Abdominal exam reveals hyperactive bowel sounds, soft non tender, no masses Extremities are nonedematous and both pedal pulses are present Neurologic exam is alert and oriented, no focal loss of strength or sensation Skin is without bruises or rashes Psychologically is without concerns for anxiety or depression.. Results & Data Results & Data ([facility]) Vital Signs (Past 12 Hours) Vital Signs Temp Pulse Pulse Resp BP Pulse Ox O2 Del Method 05/14/22 19:00 98.8 F 87 18 119/78 96 Room Air 05/14/22 18:32 89 05/14/22 15:15 98.4 F 89 17 136/97 95 Room Air 05/14/22 11:04 98.6 F 89 18 129/91 97 Room Air PG Care Time/CCT Total # of Minutes Spent Total Time Spent with Patient: Total time spent is greater than 50% in coordination of care (as documented) at patient's floor/unit and/or counseling patient: Coding Level of Care Code 47448 Subseq Hosp Care Lvl 2 Diagnoses SBO (small bowel obstruction) K56.609 Anemia D64.9 Syncope and collapse R55 Chest pain R07.9 Elevated troponin R77.8 CAD (coronary artery disease) I25.10 Diabetes mellitus E11.9 BPH w urinary obs/LUTS N40.1; N13.8 GERD (gastroesophageal reflux disease) K21.9 Pacemaker Z95.0 Tricuspid valve replaced Z95.4
[2022-05-14] MEDS ORDERED: METOCLOPRAMIDE HCL INJ 5 MG/ML 2 ML VIAL IV ONE (20:20)
[2022-05-14] MEDS ORDERED: ACETAMINOPHEN 1,000 MG/100 ML VIAL IV PRN (20:20)
[2022-05-14] MEDS ORDERED: METHYLNALTREXONE BROMIDE 12 MG/0.6 ML VIAL SQ SCH (20:30)
[2022-05-14] MEDS ORDERED: LAVAGE SOLUTION 4000ML PO SCH (21:00)
[2022-05-14] MEDS: FLUTICASONE FUROATE 200MCG 14 PUFFS/INHALER INH SCH (21:47)
[2022-05-15 07:38] LABS: Partial Thromboplastin Ratio 2.3
[2022-05-15 07:44] LABS: Partial Thromboplastin Time 63.2 Seconds (21.0-31.0)
[2022-05-15] MEDS: SENNA 8.6 MG TAB PO SCH (08:12)
[2022-05-15] MEDS: FINASTERIDE 5 MG TAB PO SCH (08:12)
[2022-05-15] MEDS: ASPIRIN 81 MG ECTAB PO SCH (08:13)
[2022-05-15] MEDS: METOPROLOL TARTRATE 25 MG TAB PO SCH (08:13)
[2022-05-15] MEDS: ARIPIprazole 1 MG/ML ORAL SOLN 150 ML BTL PO SCH (08:13)
[2022-05-15] MEDS: POLYETHYLENE (MIRALAX) 17 GM PACK PO SCH (08:13)
[2022-05-15] MEDS: DULoxetine HCL 60 MG CAP PO SCH (08:13)
[2022-05-15] MEDS: allopurinoL 100 MG TAB PO SCH (08:13)
[2022-05-15] MEDS: INSULIN ASPART PER UNIT SC SCH ×2 (08:14→11:45)
[2022-05-15] MEDS: PANTOprazole 40 MG TAB PO SCH (08:14)
[2022-05-15] MEDS: HEPARIN SODIUM/DEXTROSE 25,000 UNITS/500 ML BAG IV SCH (10:00)
--- NOTE | 2022-05-15 10:14 | XRay Report ---
KUB HISTORY: Acute generalized abdominal pain with constipation eval constipation COMPARISON: KUB 05/14/2022, CT 05/04/2022 FINDINGS: neurostimulator device battery pack projects over the right lower quadrant. The imaged lead s appear intact extending superiorly outside the [id number]. Nonobstructed bowel gas pattern. Ther e is moderate moderate fecal retention which is mildly improved from yesterday's exam. Pelvic basin c alcifications redemonstrated suggestive of phleboliths. No renal calculi. No ureteral calculi. No pne umoperitoneum or pneumatosis. No fracture. IMPRESSION: 1. Nonobstructive bowel gas pattern. 2. Moderate fecal retention has mildly improved from yesterday's exam. ACT 112: Negative or not required by law. The above report was generated using voice recognition software. It may contain grammatical, syntax o r spelling errors. Electronically signed by: Christopher Byers M.D. 05/15/2022 10:11 AM
--- NOTE | 2022-05-15 19:37 | Discharge Summary ---
Date of Service May 15, 2022 Admission HPI Per Admitting Provider 56 YOM with medical history of: CVA, Tardive dyskinesia, DMII, CKD III, frequent syncopal episodes, Depression, hiatal hernia repair, anemia, elevated troponin level, CAD (Mi 2000 LAD stent s/p cath 02/22), Esophagitis. Patient is s/p pacemaker implantation [place] [facility] as well as s/p hiatal hernia repair in February 22. Patient comes to the EMD today for syncopal episode at the [facility]. Patient states he got up to go to medical and when he reached the front of his cell he got dizzy, flush feeling, and room was spinning and he fell. He reports hitting his head. He remembers waking up where he fell and reports not being confused or loss of bowel or bladder. The patient has had previous episodes of syncope episodes some related with confusion afterwards as well. He has been evaluated by cardiology and neurology. He endorses frequent episodes of dizziness with room spinning daily and more so when getting up from sitting or lying down. He is on Meclizine as outpatient but unsure how or when he is taking this. He also remains on 2 alpha blockers for his BPH. He also endorses increase in diarrhea over the past few weeks with episodes of incontinence cause he can't get to the bathroom fast enough. This occurs about 15-20 minutes after eating. Is not associated with any blood, mucous, or abdominal pain. He also endorses loss of appetitie as well as not drinking much water or replacing fluid following his 3- 4 loose stools per day. Patient will be observed on telemetry overnight. Will check cortisol level, stop his prazosin, interrogate his Pacemaker. An attempt was made to get inner ear MRI on last admission, but difficulty was had verifying his pacemaker and MRI compatibility. Head CT scan negative for acute process, Cervical spine cleared radiographically. COVID test on admission is: NEGATIVE Principal Diagnosis small bowel obstruction resolved obstipaton improved Discharge Exam The patient appeared stable Vital signs as documented. Lungs are clear to auscultation and appear unlabored Cardiac exam, Rhythm is regular.. No murmurs, rubs or gallops. Abdominal exam reveals normal bowel sounds, soft non tender, no masses Discharge Data Allergies Allergy/AdvReac Type Severity Reaction Status Date / Time lisinopril Allergy Severe ANAPHYLAXIS Verified 05/01/22 15:05 ibuprofen Allergy Intermediate HIVES Verified 05/01/22 15:05 morphine Allergy Intermediate HIVES Verified 05/01/22 15:05 capsaicin Allergy Unknown Unknown Verified 05/01/22 15:05 phenytoin Allergy Unknown Unknown Verified 05/01/22 15:05 Consultations 05/01/22 14:11 ED Decision to Admit Stat 05/01/22 19:35 Consult Cardiology Routine 05/03/22 11:06 HIM [Consult Health Information Management] Routine 05/04/22 23:38 Consult General Surgery Routine 05/10/22 11:42 Consult Gastroenterology Routine Ordered Studies 05/01/22 12:08 CT cervical spine wo con Stat CT head/brain wo con Stat 05/04/22 21:42 CT abd pelvis wo con Urgent Hospital Course (1) SBO (small bowel obstruction): previously resolved kub shows increased stool burden once again on 05/14/22, multiple bowel movements after go lytely released on stool regiment Gi consult did defer endoscopic evaluation, (2) Anemia: Hemoglobin stable No observed GI bleeding, GI consulted no indication for scope at this time tolerting diet Iron panel with Normal ferritin. B12 and folate are normal. (3) Syncope and collapse: Cause of original presentation exact etiology not clear; considered med induced which is possiblealpha- carmen plus high-dose Flomax; reduced does on discharge (4) Chest pain: Considered atypical for CAD; observe No chest pain 05/11-05/13 (5) Elevated troponin: Thought to be demand ischemia, type II NSTEMI; observe (6) CAD (coronary artery disease): h/o LAD stent remotely - continue asa - continue statin, metoprolol (7) Diabetes mellitus: (8) BPH w urinary obs/LUTS: Consider urology follow-up as outpatient (9) GERD (gastroesophageal reflux disease): GERD with esophagitis -PPI (10) Pacemaker: Pacemaker is [employer] [place] XT DR ESTES [id number] SERIAL number [id number] - LEADS 4968 capsure EPI - MR conditional - NO - DDD with mode switch at 171 - low rate 90 upper track 120 - AT/AF >170 - VT >150 This was inserted following biatrial MAZE and clipping of left atrial appendage, tricuspid replacement (11) Tricuspid valve replaced: [place] [facility] [place] placement- bioprosthesis -Was on Warfarin with goal reported 1.5-2.0 During episode of SBO was switched to IV heparin in case surgery became necessary; later, this issue resolved and Coumadin reintroduced follow inr for appropriate rise -Discussed with cardiology, recommend appropriate SBE prophylaxis Heparin paused while pending GI assessment above, resumed and bridging back to Coumadin Plan Observe mild intermittent leukopenia Total Time Total Time Spent Total Time Spent (In Minutes): It required greater than 30 minutes to prepare this patient for discharge Discharge Plan Discharge Items [facility]position[facility] Reason For Visit: SYNCOPE Discharge Diagnosis: syncope, resolved small bowel obstruction resolved obstipatin and ileus, improved with bowel movements Activity: Per Instructions section Activity Comment: as per [facility] Non-emergency contact: Primary Care Provider Call non-emergency contact if: you have any medication questions Follow-up/Referrals: Shasta PEREIRA [Primary Care Provider] - Diet: Regular Diet Comment: consider fiber supplement Addtl Attending Provider Instructions: This pt did have bowel movement after one liter of go lytely, KUB from the morning of discharge shows improved stool burdeon, but stll plenty of stool. will recommend bowel prep or fiber supplement and bid miralax plus bid senna and reduced senna and miralax if stools become excessive maybe consider labs to eval potassium if diarrhea ensues Pending Studies at Discharge: No Stand-Alone Forms: My [facility] Skilled Items Patient informed of condition?: Yes Discharge Level of Care: Other Communicable Disease: No Discharge Prognosis: Stable Lines: None Urinary Catheter: No Medications and DC Order Prescriptions: New sennosides [Senokot] 8.6 mg Tablet 17.2 mg PO BID Qty: 6 0RF finasteride [Proscar] 5 mg Tablet 5 mg PO QAM Qty: 30 0RF Continued calcium carbonate-vitamin D3 600 mg(1,500mg) -200 unit Tablet 2 tab PO BID aspirin 81 mg Tablet,Delayed Release (Dr/Ec) 81 mg PO QAM rosuvastatin 20 mg Tablet 20 mg PO QPM Alvesco 160 mcg/actuation Hfa Aerosol Inhaler 1 puff INHALATION BID famotidine 20 mg Tablet 20 mg PO BID Qty: 60 0RF insulin glargine 100 unit/mL Solution 11 unit SUBCUT DAILY albuterol sulfate 90 mcg/actuation Hfa Aerosol Inhaler 2 puff INHALATION QID PRN (Reason: Shortness Of Breath) duloxetine 60 mg Capsule,Delayed Release(Dr/Ec) 60 mg PO BID aripiprazole [Abilify] 2 mg Tablet 2 mg PO DAILY Novolin R Regular U-100 Insuln 100 unit/mL Solution 1 sliding scale dose SUBCUT USEASDIRECTD PRN (Reason: DEPENDING ON BSG'S) Rx Instructions: BSG 150-200=2 UNITS, BSG 201-250=4 UNITS, BSG 251-300=6 UNITS, BSG 301-350=8 UNITS, BSG 351-400=10 UNITS, BSG 401-450=12 UNITS, BSG >450= CALL MD. acetaminophen [Tylenol] 325 mg Tablet 650 mg PO QID warfarin 2.5 mg Tablet 2.5 mg PO HS Rx Instructions: TOTAL DOSE 4.5 MG--TAKES WITH 2 MG TAB. warfarin 2 mg Tablet 2 mg PO HS Rx Instructions: TOTAL DOSE 4.5 MG--TAKES WITH 2.5 MG TAB. Changed polyethylene glycol 3350 [Miralax] 17 gram Powder In Packet 17 g PO BID Qty: 1 0RF tamsulosin 0.4 mg capsule 0.4 mg PO QPM Qty: 30 0RF potassium chloride 20 mEq Tablet Extended Release 20 meq PO DAILY Qty: 30 0RF Discontinued docusate sodium 100 mg Capsule 200 mg PO BID furosemide [Lasix] 40 mg Tablet 40 mg PO DAILY Discharge Orders: Discharge Order (Routine); Ordered 05/15/22 Ordered By: Los Howard Admission Data Admit Date/Time: 05/02/22 18:00 Attending Provider: Los Howard Admit Provider: Arben Campuzano Primary Care Provider: RANDALLBankstroy Other Providers: Arben Campuzano ; Tomás Alicia ; Pooja Garcia ; Vaibhav Mixon ; Luis Xavier Other Interventions: Discharge Summary Assessment (RN) Last Done: 05/15/22 11:48 Coding Level of Care Code D/C DAY MANAGEMENT >30 MINS Diagnoses SBO (small bowel obstruction) K56.609 Anemia D64.9 Syncope and collapse R55 Chest pain R07.9 Elevated troponin R77.8 CAD (coronary artery disease) I25.10 Diabetes mellitus E11.9 BPH w urinary obs/LUTS N40.1; N13.8 GERD (gastroesophageal reflux disease) K21.9 Pacemaker Z95.0 Tricuspid valve replaced Z95.4
== END 2022-05-15 13:38 | DRG 281 ==
LOC: ED 11:38 → EDINP 11:38 → SUATTDRO 14:37 → 2N 16:39 → SUATTDRO 05-02 18:00
DX: D64.9 Anemia, unspecified; N18.30 Chronic kidney disease, stage 3 unspecified; Y92.143 Cell of prison as the place of occurrence of the external cause; I25.2 Old myocardial infarction; Z86.79 Personal history of other diseases of the circulatory system; Z95.2 Presence of prosthetic heart valve; Z87.19 Personal history of other diseases of the digestive system; Z20.822 Contact with and (suspected) exposure to COVID-19; T44.6X5A Adverse effect of alpha-adrenoreceptor antagonists, initial encounter; I25.10 Atherosclerotic heart disease of native coronary artery without angina pectoris; I21.A1 Myocardial infarction type 2; R07.89 Other chest pain; E11.649 Type 2 diabetes mellitus with hypoglycemia without coma; T50.1X5A Adverse effect of loop [high-ceiling] diuretics, initial encounter; Z88.6 Allergy status to analgesic agent; Z98.890 Other specified postprocedural states; Z95.5 Presence of coronary angioplasty implant and graft; E83.42 Hypomagnesemia; F32.A Depression, unspecified; R55 Syncope and collapse; Z86.73 Personal history of transient ischemic attack (TIA), and cerebral infarction without residual deficits; Z79.4 Long term (current) use of insulin; Z79.01 Long term (current) use of anticoagulants; Z79.82 Long term (current) use of aspirin; D72.819 Decreased white blood cell count, unspecified; E78.5 Hyperlipidemia, unspecified; D69.6 Thrombocytopenia, unspecified; K56.609 Unspecified intestinal obstruction, unspecified as to partial versus complete obstruction; N40.1 Benign prostatic hyperplasia with lower urinary tract symptoms; R79.1 Abnormal coagulation profile; Z88.5 Allergy status to narcotic agent; Z88.8 Allergy status to other drugs, medicaments and biological substances; Z79.899 Other long term (current) drug therapy; E11.22 Type 2 diabetes mellitus with diabetic chronic kidney disease; K21.00 Gastro-esophageal reflux disease with esophagitis, without bleeding; Z95.0 Presence of cardiac pacemaker; R19.7 Diarrhea, unspecified; Z79.1 Long term (current) use of non-steroidal anti-inflammatories (NSAID)

== ENCOUNTER 2023-11-21 21:41 | Inpatient (IN) ==
--- OUTSIDE RECORDS SUMMARY | 2023-11-21 21:48 | External Medical Summary | Continuity of Care Document ---
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 Name Role Phone Haja Bliss Primary Care Physician [phone] Encounter [facility] [id number] Date(s): 07/22/23 - 07/22/23 [facility] [address], [address] [place] [address] [phone] Discharge Disposition: Home or Self Care Attending Physician: MD Pena Soraya M Referring Physician: MD Pena Soraya M Allergies, Adverse Reactions, Alerts Substance Reaction Severity Status lisinopril Unknown reaction Unknown reaction Active Motrin Unknown reaction Active Dilantin Unknown reaction Unknown reaction Active Capsicum Oleoresin 0.075% topical cream Unknown reacti on Active Morphine Sulfate Unknown reaction Unknown reaction Active Medications Abilify 2 mg oral tablet Start: 03/26/22 9:47:00 EDT, 1 tab, PO, Daily Start Date: 03/26/22 Status: Ordered acetaminophen Start: 04/21/22 10:12:00 EDT, 650 mg =, PO, q6h Start Date: 04/21/22 Status: Ordered Albuterol (Eqv-ProAir HFA) 90 mcg/inh inhalation aerosol Start: 03/26/22 9:48:00 EDT, 2 puff, inhaled, q6h, PRN: as needed for wheezing Start Date: 03/26/22 Status: Ordered aspirin 81 mg oral delayed release tablet Start: 03/20/20 14:48:00 EDT, 1 tab, PO, Daily Start Date: 03/20/20 Status: Ordered Caltrate 600 + D Start: 03/20/20 14:50:00 EDT, 1 tab, PO, bid Start Date: 03/20/20 Status: Ordered Colace 50 mg oral capsule Start: 03/26/22 9:50:00 EDT, 1 cap, PO, Daily, PRN: as needed for constipation Start Date: 03/26/22 Status: Ordered DULoxetine 60 mg oral delayed release capsule Start: 03/26/22 9:47:00 EDT, 1 cap, PO, bid Start Date: 03/26/22 Status: Ordered famotidine 20 mg oral tablet Start: 05/25/22 9:39:00 EDT, 1 tab, PO, bid Start Date: 05/25/22 Status: Ordered Flomax 0.4 mg oral capsule Start: 03/26/22 9:50:00 EDT, 1 cap, PO, Daily Start Date: 03/26/22 Status: Ordered insulin lispro Start: 04/21/22 10:14:00 EDT, SSI, subQ, ac and hs Start Date: 04/21/22 Status: Ordered lansoprazole Start: 04/21/22 10:14:00 EDT, 30 mg =, PO, Daily Start Date: 04/21/22 Status: Ordered Lasix 40 mg oral tablet Start: 04/21/22 10:13:00 EDT, 1 tab, PO, Daily Start Date: 04/21/22 Status: Ordered Melatonin Start: 04/21/22 10:14:00 EDT, 3 mg =, PO, qhs Start Date: 04/21/22 Status: Ordered MiraLax oral powder for reconstitution Start: 03/26/22 9:51:00 EDT, 17 g =, PO, Daily, PRN: constipation Start Date: 03/26/22 Status: Ordered potassium chloride Start: 04/21/22 10:14:00 EDT, 40 mEq =, PO, Daily Start Date: 04/21/22 Status: Ordered rosuvastatin Start: 03/20/20 14:46:00 EDT, 20 mg =, PO, Daily Start Date: 03/20/20 Status: Ordered sildenafil Start: 04/21/22 10:14:00 EDT, 5 mg =, PO, tid Start Date: 04/21/22 Status: Ordered Symbicort 80 mcg-4.5 mcg/inh inhalation aerosol Start: 04/21/22 10:13:00 EDT, 2 puff, inhaled, bid Start Date: 04/21/22 Status: Ordered warfarin 5 mg oral tablet Start: 04/21/22 10:14:00 EDT, 1 tab, PO, Daily Start Date: 04/21/22 Status: Ordered Problem List Condition Confirmation Course Effective Dates Status H ealth Status Informant Back pain Confirmed Active Pacemaker Confirmed Active Pacemaker Confirmed Active Back pain, chronic Confirmed Active Complete AV block Confirmed Active Complete AV block Confirmed Active Coronary artery disease Confirmed Active Spinal cord stimulator dysfunction Confirmed Active Spinal cord stimulator status Confirmed Active Tricuspid regurgitation Confirmed Active Procedures Procedure Date Related Diagnosis Body Site Status Hernia 2021 Completed Bowel obstruction 2016 Complet ed Surgery 2008 Completed Yazidi region right 1989 Compl eted Social History Social History Type Response Smoking Status Never smoked cigaret mere Sex Male Implantable Device List Procedure Provider Procedure Date Device Type Site Unknown Unknown 04/13/22 Unknown Unknown Device Identifier Serial Number Lot or Batch Number Manufacturing Date Expiration Date Distinct Identification Code MRI Safety Implantable Status Assigning Authority Unknown Unknown N/A Unknown 04/27/25 Unknown Unknown Active Unkn own Unknown Unknown N/A Unknown 06/06/23 Unknown Unknown Active Unkno wn Unknown Unknown N/A Unknown 05/16/23 Unknown Unknown Active Unkn own Unknown Unknown [id number] Unknown 01/14/23 Unknown Unknown Active Unk nown Unknown Unknown N/A Unknown 09/16/23 Unknown Unknown Active Unk nown Radiology * Event Display: Cardiac Device Check Authored Date: [id number] Please click on link to see image. Patient Care team information Care Team Personnel Name: BRIAN Jaffe Mayeen R Position: Nurse Pract - CT Surgery Member Role: Lifetime Relationship Address: Address: [address] [place] [address] [address] [place] [address] [place] Name: Violeta Warren Francis Position: Pharmacist Schedule II Member Role: Pharmacy - Lifetime Address: Address: [facility] [address] [place] [id number] [place] Name: MD Bliss Vernon H Position: Referring Member Role: Primary Care Provider Address: Address: [address] [place] [address] Care Team Related Persons Name: JENNY GRIFFIN Address: home [address] [address] [place] [phone]
[2023-11-21] MEDS: OPTIRAY 320 125ml IV ONE (21:55)
--- NOTE | 2023-11-21 22:16 | CT Scan Report ---
Exam(s): CT HEAD Without Contrast EXAM: CT Head Without Intravenous Contrast CLINICAL HISTORY: Reason for exam: neuro deficit, acute stroke suspected. TECHNIQUE: Axial computed tomography images of the head/brain without intravenous contrast. CTDI is 64.94 mGy and DLP is 961.59 mGy-cm. Automated exposure control was utilized for the study. A dose lowering technique was utilized adhering to the principles of ALARA. COMPARISON: No relevant prior studies available. FINDINGS: No acute intracranial hemorrhage. No midline shift or mass effect. The [place]-white matter differentiation is maintained throughout. Age-related cerebral volume loss. Periventricular and subcortical white matter hypoattenuation, consistent with chronic microangiopathy. The visualized orbits appear grossly unremarkable. The calvarium is intact. The visualized paranasal sinuses and mastoid air cells are grossly clear. IMPRESSION: No acute intracranial hemorrhage, midline shift, or mass effect. Communications: Call Doctor Stroke Electronically signed by: Leander Patricio MD 11/21/23 22:15 PM
[2023-11-21 22:17] LABS: Basophils # (auto) 0.03 K/uL (0.00-0.20); Basophils % (auto) 0.9 %; Eosinophils # (auto) 0.14 K/uL (0.00-0.50); Hematocrit (blood only) 35.1 % (42.0-52.0); Hemoglobin 11.2 g/dl (14.0-18.0); Immature Granulocytes # (auto) 0.02 K/uL (0.01-0.20); Immature Granulocytes % (auto) 0.6 %; Lymphocytes # (auto) 1.07 K/uL (1.20-3.40); Lymphocytes % (auto) 30.6 %; Mean Corpuscular Hemoglobin 26.8 pg (25.0-34.0); Mean Corpuscular Hgb Conc 31.9 g/dL (32.0-36.0); Mean Platelet Volume 8.6 fL (9.4-12.4); Monocytes # (auto) 0.37 K/uL (0.11-0.59); Monocytes % (auto) 10.6 %; Neutrophils # (auto) 1.87 K/uL (1.40-6.50); Neutrophils % (auto) 53.3 %; Platelet Count 186 K/uL (130-400); RDW Coefficient of Variation 14.6 % (11.5-14.5); RDW Standard Deviation 44.4 fL (36.4-46.3); Red Blood Count 4.18 M/uL (4.70-6.10)
--- NOTE | 2023-11-21 22:17 | CT Scan Report ---
Exam(s): CTA HEAD With Contrast IV Amt: 115 ml optiray 320 EXAM: CT Angiography Head With Intravenous Contrast CLINICAL HISTORY: Reason for exam: neuro deficit, acute stroke suspected. TECHNIQUE: Axial computed tomographic angiography images of the head with intravenous contrast. CTDI is 64.94 mGy and DLP is 961.59 mGy-cm. Automated exposure control was utilized for the study. A dose lowering technique was utilized adhering to the principles of ALARA. MIP reconstructed images were created and reviewed. CONTRAST: Patient received 115 ml optiray 320 of IV contrast COMPARISON: No relevant prior studies available. FINDINGS: Right internal carotid artery: No acute findings. Intracranial segment is patent with no significant stenosis. No aneurysm. Right anterior cerebral artery: Unremarkable. No occlusion or significant stenosis. No aneurysm. Right middle cerebral artery: Unremarkable. No occlusion or significant stenosis. No aneurysm. Right posterior cerebral artery: Unremarkable. No occlusion or significant stenosis. No aneurysm. Left internal carotid artery: No acute findings. Intracranial segment is patent with no significant stenosis. No aneurysm. Left anterior cerebral artery: Unremarkable. No occlusion or significant stenosis. No aneurysm. Left middle cerebral artery: Unremarkable. No occlusion or significant stenosis. No aneurysm. Left posterior cerebral artery: Unremarkable. No occlusion or significant stenosis. No aneurysm. IMPRESSION: No large vessel occlusion. Communications: Call Doctor Stroke Electronically signed by: Leander Patricio MD 11/21/23 22:16 PM
--- NOTE | 2023-11-21 22:18 | CT Scan Report ---
Exam(s): CTA NECK With Contrast IV Amt: 115 ml optiray 320 EXAM: CT Angiography Neck With Intravenous Contrast CLINICAL HISTORY: Reason for exam: neuro deficit, acute stroke suspected. TECHNIQUE: Routine carotid CT angiography protocol was performed with intravenous contrast. NASCET criteria using the distal ICAs for comparison were used for evaluation of stenoses. CTDI is 39.2 mGy and DLP is 460.2 mGy-cm. Automated exposure control was utilized for the study. A dose lowering technique was utilized adhering to the principles of ALARA. MIP reconstructed images were created and reviewed. CONTRAST: Patient received 115 ml optiray 320 of IV contrast COMPARISON: None. FINDINGS: VASCULATURE: Right common carotid artery: Unremarkable. No occlusion or significant stenosis. No dissection. Right internal carotid artery: Unremarkable. Extracranial segment is patent with no occlusion or significant stenosis. No dissection. Right external carotid artery: Unremarkable. No occlusion. Right vertebral artery: Unremarkable. No occlusion or significant stenosis. No dissection. Left common carotid artery: Unremarkable. No occlusion or significant stenosis. No dissection. Left internal carotid artery: Unremarkable. Extracranial segment is patent with no occlusion or significant stenosis. No dissection. Left external carotid artery: Unremarkable. No occlusion. Left vertebral artery: Unremarkable. No occlusion or significant stenosis. No dissection. IMPRESSION: No large vessel occlusion. Communications: Call Doctor Stroke Electronically signed by: Leander Patricio MD 11/21/23 22:17 PM
[2023-11-21] MEDS: ACETAMINOPHEN 1000 MG/100 ML IV IV ONE (22:24)
[2023-11-21] MEDS: SODIUM CHLORIDE 0.9% 1,000 ML IV SCH (22:25)
[2023-11-21 22:30] LABS: INR 2.1 (0.9-1.1); Partial Thromboplastin Ratio 1.2; Partial Thromboplastin Time 33 Seconds (21-31); Prothrombin Time 21.9 Seconds (9.0-12.0)
[2023-11-21 22:32] LABS: Albumin Level 4.1 gm/dl (3.4-5.0); Bilirubin,Total 0.5 mg/dl (0.2-1.0); Calcium 8.8 mg/dl (8.6-10.3); Magnesium 1.9 mg/dl (1.7-2.4); Potassium 4.2 mmol/L (3.5-5.1)
[2023-11-21 22:38] LABS: Albumin Globulin Ratio 1.9 (0.9-2); Creatinine Clr Calc Pharmacy 67.2 ml/min; Est GFR (African American) 69.4 ml/min; Est GFR (Non-African American) 59.9 ml/min; Globulin 2.2 gm/dl (2.5-4.0); Total Protein 6.3 gm/dl (6.0-8.3)
[2023-11-21 22:44] LABS: Troponin I High Sensitivity 9.5 pg/ml (0-20)
[2023-11-21 22:48] LABS: Appearance Urine Clear (Clear); Bilirubin Urine Negative (Negative); Blood Urine Negative (Negative); Color Urine Yellow; Glucose Urine UA Negative (Negative); Ketones Urine Negative (Negative); Leukocyte Esterase Urine Negative (Negative); Nitrite Urine Negative (Negative); Protein Urine Negative (Negative); Specific Gravity Urine 1.017 (1.000-1.030); Urobilinogen Urine Negative (Negative); pH Urine 7.5 (4.5-7.5)
[2023-11-21] MEDS: HYDROmorphone INJ 0.5 MG/0.5 ML SYR IV STA (22:58)
[2023-11-21] MEDS: NITROGLYCERIN 2% OINTMENT 30GM TUBE EXT STA (22:58)
--- NOTE | 2023-11-21 23:34 | Emergency Department Note ---
Impression & Plan Stroke-like symptoms, Syncope and collapse, Pacemaker, Chest pain, Anticoagulated ED Provider Note NAME: RAJINDER [id number] [place] AGE: 58 SEX: Male INFORMANT: Patient and EMS ED PROVIDER(S): George Bryant MD CHIEF COMPLAINT: Strokelike symptoms PLAN: Disposition: Admitted Outpatient prescription management: none Referral: None MEDICAL DECISION MAKING: Patient presented because of strokelike symptoms. He was made a stroke alert and taken emergently to CT imaging. Patient had CT imaging done and nursing noted that he was starting to respond and answer questions. EMS did note aphasia and right-sided weakness. Charge nurse noted that the [facility] contacted us and described that he had weakness throughout the day today. Once the patient was answering questions and speaking he noted his right-sided weakness started around breakfast time today. That coupled with his therapeutic INR on laboratory testing does not make him a lytic candidate. I did have a stroke consult placed with Dr. Cortes of [facility]. She was in agreement regarding the contraindication to lytics. She did recommend admission for stroke workup but also an EEG. She recommended aspirin and record review indicates that the patient is already taking baby aspirin. He does admit to this as well. Patient was given IV Tylenol and did feel improvement with this. He was also given a small dose of IV Dilaudid for his pain and Nitropaste. Consultation was made with Dr. Carli Soliman of the [facility] service. Patient was evaluated in the ER for further management. [employer] evaluated patient's pacemaker interrogation and there were no events reported and the device is functioning properly. Care/management discussed with: center manager, EMS for prehospital medical command and stroke alert Level of care consideration(s): After review of the information above and other included data, I feel the patient requires escalation of care to admission Triage Nursing notes: reviewed and agree them. Vital Signs: reviewed and remarkable for hypertension Additional History obtained from: EMS Chronic Medical/Social Conditions affecting care: CAD Prior/ Outside/ External records reviewed: Long-Term transfer paperwork reviewed. Patient indeed does take a baby aspirin daily. Differential Diagnosis: CVA, TIA, ACS, Infection, seizure, dehydration, metabolic abnormality, hypo/hyperglycemia, electrolyte disturbance, anemia, hypoxia, cardiac sources, intracerebral event, toxicologic, neurologic, as well as other pathologies. Diagnostics, independently interpreted by me: ECG: Twelve-lead ECG reveals a ventricular paced rhythm at 70 bpm. No obvious ischemia. Cardiac Monitoring: Cardiac monitoring ordered by me: The patient was placed on continuous cardiac monitoring and observed. It revealed a paced rhythm at 71 bpm without ectopy or evidence of dysrhythmia. Medical decision rules: none Imaging studies: Chest x-ray reveals a cardiac pacemaker in place as well as sternal wires. No pneumothorax. Patient is slightly rotated. No change from prior notes chest x-ray. Head CT did not reveal any intracranial hemorrhage. I refer you to the EMR for further details. HPI: 58 year old Male arrives for evaluation of strokelike symptoms. EMS called for medical command due to aphasia and right-sided weakness. A stroke alert was initiated. Patient reportedly complained of chest pain to his cellmate and then had a syncopal episode. He did have an episode of incontinence with that. There was no seizure activity described. He was taken to [facility] and evaluated. He was noted to have aphasia and right-sided weakness. He was also complaining of chest discomfort. Prehospital ECG showed a paced rhythm. Vat Washer did note the right-sided weakness. The [facility] did note that the patient had weakness that started this morning. Patient does note headache. Patient is anticoagulated on Coumadin. Pt denies visual changes, neck pain, breathing difficulties, nausea, vomiting, abdominal pain, back pain, active bleeding, or other complaints. PAST MEDICAL HISTORY: See Below, CAD PAST SURGICAL HISTORY: See Below, pacemaker, mitral valve replacement SOCIAL HISTORY: See Below, incarcerated HOME MEDICATIONS: See Below ALLERGIES: See Below VITALS: See Below PHYSICAL EXAMINATION: GENERAL: Awake, alert, uncomfortable-appearing, in no distress HENT: Normocephalic, atraumatic. Oropharynx unremarkable. EYES: Normal conjunctiva. Sclera non-icteric. PERRLA. EOMI. NECK: Inspection normal. Non-tender. Supple. No nuchal rigidity. FROM. No masses. RESPIRATORY: Clear to auscultation. No wheezes. No rales. Normal respiratory effort. CARDIAC: Normal rate. Normal rhythm. No murmurs. No rubs. Extremities warm and well perfused. Pulses equal. No JVD. GI: Soft, non-distended. No tenderness to palpation. No rebound or guarding. No masses. RECTAL: Deferred. MUSCULOSKELETAL: Atraumatic. Chest examination reveals no tenderness. The back is symmetrical on inspection without obvious abnormality. There is no CVA tenderness to palpation. No joint edema. LOWER EXTREMITIES: Calves are equal size bilaterally and non-tender. No edema. No discoloration. NEURO: Normal sensorium. No left-sided sensory or motor deficits noted. No facial droop. Patient is answering questions. No aphasia at this time. Patient does have drift and weakness in the right upper and right lower extremity. SKIN: No rash or jaundice noted. PROCEDURES: none CRITICAL CARE: none OBSERVATION NOTE: none Past Med/Surg History Medical History Abdominal pain Acute myocardial infarction 2020 s/p LAD stent Angina pectoris Asthma Atypical chest pain Bowel obstruction BPH (benign prostatic hyperplasia) CAD (coronary artery disease) CAD (coronary artery disease) Chest pain Constipation Depression DM type 2 (diabetes mellitus, type 2) Esophagitis Esophagitis on EGD, [facility], 2020 Gout Head injury History of CVA (cerebrovascular accident) Hx SBO Hyperlipidemia Hypertension Hypomagnesemia Iron deficiency anemia Pacemaker Peptic ulcer disease Pneumomediastinum Pneumothorax Pulmonary hypertension Sarcoidosis Skin cancer Syncope Transaminitis Tricuspid regurgitation Vertigo Surgical History H/O exploratory laparotomy "05/31/2015 with lysis of adhesions, release of bowel obstruction, repair of incisional hernia" H/O ventral hernia repair History of back surgery History of repair of hiatal hernia (02/19/22) Laparoscopic Repair of Hiatal Hernia; partial gastric fundoplication; posterior gastropexy(Not Applicable) - Luke De La Fuente DO S/P cardiac cath S/P coronary artery stent placement (05/07/13) "2000" Tricuspid valve replaced Family History Mother , age 67 Lung cancer Father , age 68 Lung cancer Brother Stroke age 55 Social History Smoking Status: Never smoker Hx Alcohol Use: No Hx Substance Use: No Preferred Language: Korean Communication Ability: Effective Visual Impairment: No Limitations Assistant Dean Required: No Beliefs That Will Affect Care: None marital status: Single Current Living Situation: Other Current Living Situation Comment: detention - [facility] [place] Feels Safe at Home: Yes Assistive Devices: None Allergies Allergies Allergy/AdvReac Type Severity Reaction Status Date / Time lisinopril Allergy Severe ANAPHYLAXIS Verified 05/07/23 16:10 ibuprofen Allergy Intermediate HIVES Verified 05/07/23 16:10 morphine Allergy Intermediate HIVES Verified 05/07/23 16:10 capsaicin Allergy Unknown ON SCI Verified 05/07/23 16:10 [facility] phenytoin Allergy Unknown ON [facility] Verified 05/07/23 16:10 [facility] Oc spray contraindication Allergy Unknown Uncoded 05/07/23 16:10 Home Meds Home Medications Medication Instructions Recorded Confirmed albuterol sulfate 90 mcg/actuation 2 puff inhalation QID PRN 05/07/23 05/27/23 aerosol inhaler Shortness Of Breath Or Wheezing aripiprazole 2 mg tablet 2 mg PO DAILY 05/07/23 05/27/23 aspirin 81 mg chewable tablet 81 mg PO DAILY 05/07/23 05/27/23 calcium carbonate 600 mg-vitamin 2 tab PO BID 05/07/23 05/27/23 D3 10 mcg (400 unit) tablet (Calcium 600 + D(3)) camphor 11 %-menthol 16 % topical 1 applic topical BID 05/07/23 05/27/23 cream (Icy Hot Advanced) ciclesonide 160 mcg/actuation 1 puff inhalation BID 05/07/23 05/27/23 aerosol inhaler (Alvesco) duloxetine 60 mg capsule,delayed 60 mg PO BID 05/07/23 05/27/23 release famotidine 20 mg tablet 20 mg PO BID 05/07/23 05/27/23 hydroxyzine pamoate 25 mg capsule 25 mg PO DAILY 05/07/23 05/27/23 hydroxyzine pamoate 50 mg capsule 50 mg PO HS 05/07/23 05/27/23 insulin glargine 100 unit/mL 11 unit subcut DAILY 05/07/23 05/27/23 subcutaneous solution insulin regular human 100 unit/mL 1 sliding scale dose subcut 05/07/23 05/27/23 injection solution (Novolin R USEASDIRECTD Regular U-100 Insulin) metoprolol tartrate 25 mg tablet 25 mg PO BID 05/07/23 05/27/23 pantoprazole 40 mg tablet,delayed 40 mg PO DAILY 05/07/23 05/27/23 release potassium chloride 20 mEq 20 meq PO DAILY 05/07/23 05/27/23 tablet,extended release prazosin 1 mg capsule 1 mg PO HS 05/07/23 05/27/23 ramelteon 8 mg tablet 8 mg PO HS 05/07/23 05/27/23 rosuvastatin 20 mg tablet 20 mg PO QPM 05/07/23 05/27/23 tamsulosin 0.4 mg capsule 0.4 mg PO HS 05/07/23 05/27/23 warfarin 3 mg tablet 3 mg PO DAILY 05/07/23 05/27/23 Results & Data (ED) Vital Signs Vital Signs - 24 hr 11/21/23 22:07 11/21/23 22:12 11/21/23 22:30 Pulse Rate 70 70 Pulse Rate [Apical] Respiratory Rate 16 Respiratory Effort / Characteristics Non-Labored Spontaneous Respiratory Depth Normal Blood Pressure 187/123 H Blood Pressure [Left Arm] Blood Pressure Mean 144 Blood Pressure Mean [Left Arm] Pulse Oximetry 99 Oxygen Delivery Method Room Air Room Air Sepsis Recent Fever Within 48 Hours No Sepsis New/Unexplained Change in Mental Status No Sepsis Action Taken by Nursing No Action Required 11/21/23 22:30 11/21/23 23:00 11/21/23 23:15 Pulse Rate Pulse Rate [Apical] 70 71 Respiratory Rate 14 16 Respiratory Effort / Characteristics Non-Labored Respiratory Depth Normal Blood Pressure Blood Pressure [Left Arm] 162/106 H 151/101 H Blood Pressure Mean Blood Pressure Mean [Left Arm] 124 117 Pulse Oximetry 99 100 Oxygen Delivery Method Room Air Room Air Sepsis Recent Fever Within 48 Hours Sepsis New/Unexplained Change in Mental Status Sepsis Action Taken by Nursing Laboratory Data 11/21/23 22:10 11/21/23 22:10 Lab Results 11/21/23 11/21/23 Range/Units 22:10 22:39 WBC 3.50 L (4.8-10.8) K/ul RBC 4.18 L (4.70-6.10) M/uL Hgb 11.2 L (14.0-18.0) g/dl Hct 35.1 L (42.0-52.0) % MCV 84.0 (80.0-100.0) fL MCH 26.8 (25.0-34.0) pg MCHC 31.9 L (32.0-36.0) g/dL RDW Std Deviation 44.4 (36.4-46.3) fL RDW Coeff of Eliana 14.6 H (11.5-14.5) % Plt Count 186 (130-400) K/uL MPV 8.6 L (9.4-12.4) fL Immature Gran % (Auto) 0.6 % Neut % (Auto) 53.3 % Lymph % (Auto) 30.6 % [place] % (Auto) 10.6 % Eos % (Auto) 4.0 % Baso % (Auto) 0.9 % Neut # (Auto) 1.87 (1.40-6.50) K/uL Lymph # (Auto) 1.07 L (1.20-3.40) K/uL [place] # (Auto) 0.37 (0.11-0.59) K/uL Eos # (Auto) 0.14 (0.00-0.50) K/uL Baso # (Auto) 0.03 (0.00-0.20) K/uL Immature Gran # (Auto) 0.02 (0.01-0.20) K/uL PT 21.9 H (9.0-12.0) Seconds INR 2.1 H (0.9-1.1) APTT 33 H (21-31) Seconds PTT Ratio 1.2 Sodium 132 L (136-145) mmol/L Potassium 4.2 (3.5-5.1) mmol/L Chloride 101 (98-107) mmol/L Carbon Dioxide 25 (21-32) mmol/L Anion Gap 6 (3-11) BUN 18 (6-23) mg/dl Creatinine 1.29 (0.6-1.4) mg/dl Est Cr Clr Drug Dosing 67.2 ml/min Est GFR ( Amer) 69.4 ml/min Est GFR (Non-Af Amer) 59.9 ml/min BUN/Creatinine Ratio 14.0 (10-20) Glucose 142 H (70-99(Fasting)) mg/dl Calcium 8.8 (8.6-10.3) mg/dl Magnesium 1.9 (1.7-2.4) mg/dl Total Bilirubin 0.5 (0.2-1.0) mg/dl AST 41 H (13-39) U/L ALT 46 (7-52) U/L Alkaline Phosphatase 65 (34-104) U/L Troponin I High Sens 9.5 (0-20) pg/ml Total Protein 6.3 (6.0-8.3) gm/dl Albumin 4.1 (3.4-5.0) gm/dl Globulin 2.2 L (2.5-4.0) gm/dl Albumin/Globulin Ratio 1.9 (0.9-2) Urine Color Yellow Urine Appearance Clear (Clear) Urine pH 7.5 (4.5-7.5) Ur Specific [place] 1.017 (1.000-1.030) Urine Protein Negative (Negative) Urine Glucose (UA) Negative (Negative) Urine Ketones Negative (Negative) Urine Blood Negative (Negative) Urine Nitrite Negative (Negative) Urine Bilirubin Negative (Negative) Urine Urobilinogen Negative (Negative) Ur Leukocyte Esterase Negative (Negative) Blood Type O Positive Antibody Screen NEGATIVE Administered Medications Sodium Chloride (Nss) 1,000 mls @ 50 mls/hr IV .Q20H LIN Stop: 12/21/23 21:59 Last Admin: 11/21/23 22:25 Dose: 50 mls/hr Documented By: PAL Discontinued Medications Acetaminophen (Acetaminophen 1000 Mg/100 Ml Iv) Confirm Administered Dose 1,000 mg IV .STK-MED ONE Stop: 11/21/23 22:21 Last Admin: 11/21/23 22:24 Dose: 1,000 mg Documented By: PAL Hydromorphone HCl (Hydromorphone Inj 0.5 Mg/0.5 Ml Syr) 0.25 mg IV NOW STA Stop: 11/21/23 22:39 Last Admin: 11/21/23 22:58 Dose: 0.25 mg Documented By: PAL Ioversol (Optiray 320 125ml) 115 ml IV ONCE ONE Stop: 11/21/23 21:56 Last Admin: 11/21/23 21:55 Dose: 115 ml Documented By: TAYLOR Nitroglycerin (Nitroglycerin 2% Ointment 30gm Tube) 0.5 inch EXT NOW STA Stop: 11/21/23 22:39 Last Admin: 11/21/23 22:58 Dose: 0.5 inch Documented By: PAL Imaging Data Radiologist's Impression: Head CT 11/21/23 21:48 CR Exam(s): CT HEAD Without Contrast EXAM: CT Head Without Intravenous Contrast CLINICAL HISTORY: Reason for exam: neuro deficit, acute stroke suspected. TECHNIQUE: Axial computed tomography images of the head/brain without intravenous contrast. CTDI is 64.94 mGy and DLP is 961.59 mGy-cm. Automated exposure control was utilized for the study. A dose lowering technique was utilized adhering to the principles of ALARA. COMPARISON: No relevant prior studies available. FINDINGS: No acute intracranial hemorrhage. No midline shift or mass effect. The [place]-white matter differentiation is maintained throughout. Age-related cerebral volume loss. Periventricular and subcortical white matter hypoattenuation, consistent with chronic microangiopathy. The visualized orbits appear grossly unremarkable. The calvarium is intact. The visualized paranasal sinuses and mastoid air cells are grossly clear. IMPRESSION: No acute intracranial hemorrhage, midline shift, or mass effect. Communications: Call Doctor Stroke Electronically signed by: Leander Patricio MD 11/21/23 22:15 PM Head CTA 11/21/23 21:48 CR Exam(s): CTA HEAD With Contrast IV Amt: 115 ml optiray 320 EXAM: CT Angiography Head With Intravenous Contrast CLINICAL HISTORY: Reason for exam: neuro deficit, acute stroke suspected. TECHNIQUE: Axial computed tomographic angiography images of the head with intravenous contrast. CTDI is 64.94 mGy and DLP is 961.59 mGy-cm. Automated exposure control was utilized for the study. A dose lowering technique was utilized adhering to the principles of ALARA. MIP reconstructed images were created and reviewed. CONTRAST: Patient received 115 ml optiray 320 of IV contrast COMPARISON: No relevant prior studies available. FINDINGS: Right internal carotid artery: No acute findings. Intracranial segment is patent with no significant stenosis. No aneurysm. Right anterior cerebral artery: Unremarkable. No occlusion or significant stenosis. No aneurysm. Right middle cerebral artery: Unremarkable. No occlusion or significant stenosis. No aneurysm. Right posterior cerebral artery: Unremarkable. No occlusion or significant stenosis. No aneurysm. Left internal carotid artery: No acute findings. Intracranial segment is patent with no significant stenosis. No aneurysm. Left anterior cerebral artery: Unremarkable. No occlusion or significant stenosis. No aneurysm. Left middle cerebral artery: Unremarkable. No occlusion or significant stenosis. No aneurysm. Left posterior cerebral artery: Unremarkable. No occlusion or significant stenosis. No aneurysm. IMPRESSION: No large vessel occlusion. Communications: Call Doctor Stroke Electronically signed by: Leander Patricio MD 11/21/23 22:16 PM Neck CTA 11/21/23 21:48 CR Exam(s): CTA NECK With Contrast IV Amt: 115 ml optiray 320 EXAM: CT Angiography Neck With Intravenous Contrast CLINICAL HISTORY: Reason for exam: neuro deficit, acute stroke suspected. TECHNIQUE: Routine carotid CT angiography protocol was performed with intravenous contrast. NASCET criteria using the distal ICAs for comparison were used for evaluation of stenoses. CTDI is 39.2 mGy and DLP is 460.2 mGy-cm. Automated exposure control was utilized for the study. A dose lowering technique was utilized adhering to the principles of ALARA. MIP reconstructed images were created and reviewed. CONTRAST: Patient received 115 ml optiray 320 of IV contrast COMPARISON: None. FINDINGS: VASCULATURE: Right common carotid artery: Unremarkable. No occlusion or significant stenosis. No dissection. Right internal carotid artery: Unremarkable. Extracranial segment is patent with no occlusion or significant stenosis. No dissection. Right external carotid artery: Unremarkable. No occlusion. Right vertebral artery: Unremarkable. No occlusion or significant stenosis. No dissection. Left common carotid artery: Unremarkable. No occlusion or significant stenosis. No dissection. Left internal carotid artery: Unremarkable. Extracranial segment is patent with no occlusion or significant stenosis. No dissection. Left external carotid artery: Unremarkable. No occlusion. Left vertebral artery: Unremarkable. No occlusion or significant stenosis. No dissection. IMPRESSION: No large vessel occlusion. Communications: Call Doctor Stroke Electronically signed by: Leander Patricio MD 11/21/23 22:17 PM Discharge Plan Visit Data Chief Complaint: Stroke Alert Stated Complaint: STROKE ALERT ED Provider: George Bryant Discharge Problem: Stroke-like symptoms, Syncope and collapse, Pacemaker, Chest pain, Anticoagulated Forms Stand Alone Forms: [employer] Prescriptions Prescriptions: No Action insulin glargine [Semglee U-100 Insulin] 100 unit/mL Solution 11 unit SUBCUT DAILY prazosin 1 mg Capsule 1 mg PO HS hydroxyzine pamoate 50 mg Capsule 50 mg PO HS warfarin 3 mg Tablet 3 mg PO DAILY famotidine 20 mg Tablet 20 mg PO BID tamsulosin 0.4 mg Capsule 0.4 mg PO HS pantoprazole 40 mg Tablet,Delayed Release (Dr/Ec) 40 mg PO DAILY Novolin R Regular U100 Insulin 100 unit/mL Solution 1 sliding scale dose SUBCUT USEASDIRECTD Rx Instructions: Prn, 150-200=2, 201-250=4, 251-300=6,301-350=8, 351-400=10, 401-450=12, >450 call aspirin [Baby Aspirin] 81 mg Tablet,Chewable 81 mg PO DAILY albuterol sulfate 90 mcg/actuation Hfa Aerosol Inhaler 2 puff INHALATION QID PRN (Reason: Shortness Of Breath Or Wheezing) hydroxyzine pamoate 25 mg Capsule 25 mg PO DAILY rosuvastatin 20 mg Tablet 20 mg PO QPM metoprolol tartrate 25 mg Tablet 25 mg PO BID Rx Instructions: Hold for HR of 60 or below,hold for SBP of 100 and below duloxetine 60 mg Capsule,Delayed Release(Dr/Ec) 60 mg PO BID ramelteon 8 mg Tablet 8 mg PO HS aripiprazole 2 mg Tablet 2 mg PO DAILY calcium carbonate-vitamin D3 [Calcium 600 + D(3)] 600 mg-10 mcg (400 unit) Tablet 2 tab PO BID Alvesco 160 mcg/actuation Hfa Aerosol Inhaler 1 puff INHALATION BID potassium chloride 20 mEq Tablet Extended Release 20 meq PO DAILY Rx Instructions: Micro Icy Hot Advanced 11-16 % Cream 1 applic TOPICAL BID Rx Instructions: Extra Strenth Referrals Referrals: Shasta PEREIRA [Primary Care Provider] -
--- NOTE | 2023-11-21 23:46 | History & Physical Report ---
Date of Service November 21, 2023 Assessment & Plan (1) Stroke-like symptoms: Plan: Patient with possible syncopal event followed by worsening weakness of right upper and lower extremities. He does have a baseline deficit as well. 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 Admit to PCU Neurochecks, NIH stroke scale per protocol Continue aspirin 81 mg p.o. daily Maintain seizure precautions Check MRI brain Check EEG PT/OT evaluation Speech therapy evaluation Continue Crestor Patient recently had a pacemaker placed. Reports that he was started on Coumadin at that point. Details unclear. Will request records. (2) Syncope: Plan: Unclear if patient is syncopal event versus a seizure Checking 2D echo Checking EEG Maintain seizure precautions (3) Depression: Plan: Chronic. Patient is on multiple agents Continue aripiprazole Continue duloxetine Continue hydroxyzine Continue prazosin (4) Diabetes mellitus: Plan: Chronic. Last hemoglobin A1c = 7.9 on 02/15/2022 Insulin sliding scale with goal blood sugar [id number] (5) GERD (gastroesophageal reflux disease): Plan: Chronic. Stable. Continue Protonix 40 mg p.o. daily Continue Pepcid 20 mg p.o. twice daily History of Present Illness Chief Complaint: Right-sided weakness Primary Care Provider: [facility] Janak Curtis is a 58-year-old male with history of hypertension, hyperlipidemia, diabetes and prior stroke 7 years ago with residual right-sided weakness presenting from [facility] with concern for worsening right-sided weakness. Patient reports having tingling of his right face and right upper and lower extremity ongoing throughout the day. Around 1999 he developed an episode of severe stabbing substernal chest pain followed by a syncopal event. When he woke up he had a headache and worsening weakness of his right upper and right lower extremities. He also noted ongoing tingling on the right side of his face. The episode was witnessed by his cellmate, no report of seizure activity. EMS was contacted. Patient presented as a code stroke and was discussed with stroke neurologist at [place] who recommended continuing daily aspirin, continuing anticoagulation (heparin if patient not therapeutic on his INR and continued workup). Patient is on Coumadin with therapeutic INR of 2.1. Pacemaker interrogated with no arrhythmia In the ER patient is afebrile, hemodynamically stable, no acute distress ER course: Tylenol 1 g IV Allergies Allergy/AdvReac Type Severity Reaction Status Date / Time lisinopril Allergy Severe ANAPHYLAXIS Verified 11/22/23 02:09 ibuprofen Allergy Intermediate HIVES Verified 11/22/23 02:09 morphine Allergy Intermediate HIVES Verified 11/22/23 02:09 capsaicin Allergy Unknown ON SCI Verified 11/22/23 02:09 picsell LIST phenytoin Allergy Unknown ON SCI Verified 11/22/23 02:09 [employer] Oc spray contraindication Allergy Unknown Uncoded 11/22/23 02:09 Home Medications Medication Instructions Recorded Confirmed Type albuterol sulfate 90 mcg/actuation 2 puff inhalation QID PRN 11/22/23 11/22/23 History aerosol inhaler Shortness Of Breath Or Wheezing aripiprazole 2 mg tablet 2 mg PO DAILY 11/22/23 11/22/23 History aspirin 81 mg tablet,delayed 81 mg PO DAILY 11/22/23 11/22/23 History release calcium carbonate 600 mg-vitamin 2 tab PO BID 11/22/23 11/22/23 History D3 10 mcg (400 unit) tablet (Calcium 600 + D(3)) ciclesonide 160 mcg/actuation 1 puff inhalation BID 11/22/23 11/22/23 History aerosol inhaler (Alvesco) duloxetine 60 mg capsule,delayed 60 mg PO BID 11/22/23 11/22/23 History release famotidine 20 mg tablet 20 mg PO BID 11/22/23 11/22/23 History hydroxyzine pamoate 25 mg capsule 25 mg PO AMHS 11/22/23 11/22/23 History hydroxyzine pamoate 50 mg capsule 50 mg PO HS 11/22/23 11/22/23 History insulin glargine 100 unit/mL 10 unit subcut DAILY 11/22/23 11/22/23 History subcutaneous solution insulin regular human 100 unit/mL 1 sliding scale dose subcut 11/22/23 11/22/23 History injection solution (Novolin R USEASDIRECTD Regular U-100 Insulin) metoprolol tartrate 25 mg tablet 25 mg PO BID 11/22/23 11/22/23 History pantoprazole 40 mg tablet,delayed 40 mg PO DAILY 11/22/23 11/22/23 History release potassium chloride 20 mEq 20 meq PO DAILY 11/22/23 11/22/23 History tablet,extended release prazosin 1 mg capsule 1 mg PO HS 11/22/23 11/22/23 History ramelteon 8 mg tablet 8 mg PO HS 11/22/23 11/22/23 History rosuvastatin 20 mg tablet 20 mg PO QPM 11/22/23 11/22/23 History tamsulosin 0.4 mg capsule 0.4 mg PO HS 11/22/23 11/22/23 History warfarin 2.5 mg tablet 2.5 mg PO .6XSWEEK 11/22/23 11/22/23 History warfarin 5 mg tablet 5 mg PO .QMON 11/22/23 11/22/23 History Past Med/Surg History Medical History Pacemaker Chest pain Gout Transaminitis Pneumothorax Pneumomediastinum Acute myocardial infarction 2020 s/p LAD stent Esophagitis on EGD, [facility], 2020 Pulmonary hypertension CAD (coronary artery disease) Tricuspid regurgitation Constipation Hypomagnesemia Esophagitis Abdominal pain Vertigo BPH (benign prostatic hyperplasia) CAD (coronary artery disease) Syncope Atypical chest pain Hx SBO Angina pectoris History of CVA (cerebrovascular accident) Iron deficiency anemia Asthma Hyperlipidemia Hypertension Bowel obstruction DM type 2 (diabetes mellitus, type 2) Skin cancer Head injury Depression Peptic ulcer disease Sarcoidosis Surgical History Tricuspid valve replaced History of repair of hiatal hernia (02/19/22) Laparoscopic Repair of Hiatal Hernia; partial gastric fundoplication; posterior gastropexy(Not Applicable) - Luke De La Fuente DO S/P cardiac cath H/O exploratory laparotomy "05/31/2015 with lysis of adhesions, release of bowel obstruction, repair of incisional hernia" S/P coronary artery stent placement (05/07/13) "2000" H/O ventral hernia repair History of back surgery Family History Mother , age 67 Lung cancer Father , age 68 Lung cancer Brother Stroke age 55 Social History Smoking Status: Never smoker Hx Alcohol Use: No Hx Substance Use: No Preferred Language: Azeri Communication Ability: Effective Visual Impairment: No Limitations Server Administrator Required: No Beliefs That Will Affect Care: None marital status: Single Current Living Situation: Other Current Living Situation Comment: [facility] [place] Feels Safe at Home: Yes Assistive Devices: None Review of Systems Review of Systems: All systems reviewed & are unremarkable except as noted in HPI & below Physical Exam Physical Exam: General: patient resting comfortably, NAD, non-toxic in appearance, AA&O x 4 Skin: warm, dry, intact, no rashes or lesions HEENT: NC/AT, PERRL, EOMI, anicteric sclera, conjunctiva without injection, external ear normal to inspection and nontender, nares patent, moist mucus membranes, dentition intact, no oropharyngeal lesions, neck supple, trachea midline, no LAD, no thyromegaly, no JVD Heart: +S1/S2, regular, no m/r/g Lungs: equal air entry bilaterally, no rales/rhonchi/wheezes Abd: +BS, soft, NT/ND, no masses/organomegaly/ascites Ext: warm, 2+ pulses in UE/LE bilaterally, no clubbing/cyanosis or edema Neuro: speech intact and appropriate, no facial droop, CN grossly intact, RUE strength 2/5, RLE 3/5, LUE/LLE 5/5 Results & Data Results & Data Vital Signs (Past 12 Hours) Vital Signs Pulse Pulse Resp BP BP Pulse Ox O2 Del Method 11/21/23 23:15 71 16 151/101 H 100 Room Air 11/21/23 23:00 70 14 162/106 H 99 Room Air 11/21/23 22:30 Room Air 11/21/23 22:12 70 11/21/23 22:07 70 16 187/123 H 99 Room Air Laboratory Results Laboratory Results WBC 3.50 K/ul (4.8-10.8) L 11/21/23 22:10 RBC 4.18 M/uL (4.70-6.10) L 11/21/23 22:10 Hgb 11.2 g/dl (14.0-18.0) L 11/21/23 22:10 Hct 35.1 % (42.0-52.0) L 11/21/23 22:10 MCV 84.0 fL (80.0-100.0) 11/21/23 22:10 MCH 26.8 pg (25.0-34.0) 11/21/23 22:10 MCHC 31.9 g/dL (32.0-36.0) L 11/21/23 22:10 RDW Std Deviation 44.4 fL (36.4-46.3) 11/21/23 22:10 RDW Coeff of Eliana 14.6 % (11.5-14.5) H 11/21/23 22:10 Plt Count 186 K/uL (130-400) 11/21/23 22:10 MPV 8.6 fL (9.4-12.4) L 11/21/23 22:10 Immature Gran % (Auto) 0.6 % 11/21/23 22:10 Neut % (Auto) 53.3 % 11/21/23 22:10 Lymph % (Auto) 30.6 % 11/21/23 22:10 [place] % (Auto) 10.6 % 11/21/23 22:10 Eos % (Auto) 4.0 % 11/21/23 22:10 Baso % (Auto) 0.9 % 11/21/23 22:10 Neut # (Auto) 1.87 K/uL (1.40-6.50) 11/21/23 22:10 Lymph # (Auto) 1.07 K/uL (1.20-3.40) L 11/21/23 22:10 [place] # (Auto) 0.37 K/uL (0.11-0.59) 11/21/23 22:10 Eos # (Auto) 0.14 K/uL (0.00-0.50) 11/21/23 22:10 Baso # (Auto) 0.03 K/uL (0.00-0.20) 11/21/23 22:10 Immature Gran # (Auto) 0.02 K/uL (0.01-0.20) 11/21/23 22:10 PT 21.9 Seconds (9.0-12.0) H 11/21/23 22:10 INR 2.1 (0.9-1.1) H 11/21/23 22:10 APTT 33 Seconds (21-31) H 11/21/23 22:10 PTT Ratio 1.2 11/21/23 22:10 Sodium 132 mmol/L (136-145) L 11/21/23 22:10 Potassium 4.2 mmol/L (3.5-5.1) 11/21/23 22:10 Chloride 101 mmol/L (98-107) 11/21/23 22:10 Carbon Dioxide 25 mmol/L (21-32) 11/21/23 22:10 Anion Gap 6 (3-11) 11/21/23 22:10 BUN 18 mg/dl (6-23) 11/21/23 22:10 Creatinine 1.29 mg/dl (0.6-1.4) 11/21/23 22:10 Est Cr Clr Drug Dosing 67.2 ml/min 11/21/23 22:10 Est GFR ( Amer) 69.4 ml/min 11/21/23 22:10 Est GFR (Non-Af Amer) 59.9 ml/min 11/21/23 22:10 BUN/Creatinine Ratio 14.0 (10-20) 11/21/23 22:10 Glucose 142 mg/dl (70-99(Fasting)) H 11/21/23 22:10 Calcium 8.8 mg/dl (8.6-10.3) 11/21/23 22:10 Magnesium 1.9 mg/dl (1.7-2.4) 11/21/23 22:10 Total Bilirubin 0.5 mg/dl (0.2-1.0) 11/21/23 22:10 AST 41 U/L (13-39) H 11/21/23 22:10 ALT 46 U/L (7-52) 11/21/23 22:10 Alkaline Phosphatase 65 U/L (34-104) 11/21/23 22:10 Troponin I High Sens 9.5 pg/ml (0-20) 11/21/23 22:10 Total Protein 6.3 gm/dl (6.0-8.3) 11/21/23 22:10 Albumin 4.1 gm/dl (3.4-5.0) 11/21/23 22:10 Globulin 2.2 gm/dl (2.5-4.0) L 11/21/23 22:10 Albumin/Globulin Ratio 1.9 (0.9-2) 11/21/23 22:10 Urine Color Yellow 11/21/23 22:39 Urine Appearance Clear (Clear) 11/21/23 22:39 Urine pH 7.5 (4.5-7.5) 11/21/23 22:39 Ur Specific [place] 1.017 (1.000-1.030) 11/21/23 22:39 Urine Protein Negative (Negative) 11/21/23 22:39 Urine Glucose (UA) Negative (Negative) 11/21/23 22:39 Urine Ketones Negative (Negative) 11/21/23 22:39 Urine Blood Negative (Negative) 11/21/23 22:39 Urine Nitrite Negative (Negative) 11/21/23 22:39 Urine Bilirubin Negative (Negative) 11/21/23 22:39 Urine Urobilinogen Negative (Negative) 11/21/23 22:39 Ur Leukocyte Esterase Negative (Negative) 11/21/23 22:39 Blood Type O Positive 11/21/23 22:10 Antibody Screen NEGATIVE 11/21/23 22:[address] 11/21/23 21:48 CR Exam(s): CT HEAD Without Contrast EXAM: CT Head Without Intravenous Contrast CLINICAL HISTORY: Reason for exam: neuro deficit, acute stroke suspected. TECHNIQUE: Axial computed tomography images of the head/brain without intravenous contrast. CTDI is 64.94 mGy and DLP is 961.59 mGy-cm. Automated exposure control was utilized for the study. A dose lowering technique was utilized adhering to the principles of ALARA. COMPARISON: No relevant prior studies available. FINDINGS: No acute intracranial hemorrhage. No midline shift or mass effect. The [place]-white matter differentiation is maintained throughout. Age-related cerebral volume loss. Periventricular and subcortical white matter hypoattenuation, consistent with chronic microangiopathy. The visualized orbits appear grossly unremarkable. The calvarium is intact. The visualized paranasal sinuses and mastoid air cells are grossly clear. IMPRESSION: No acute intracranial hemorrhage, midline shift, or mass effect. Communications: Call Doctor Stroke Electronically signed by: eLander Patricio MD 11/21/23 22:15 PM Head CTA 11/21/23 21:48 CR Exam(s): CTA HEAD With Contrast IV Amt: 115 ml optiray 320 EXAM: CT Angiography Head With Intravenous Contrast CLINICAL HISTORY: Reason for exam: neuro deficit, acute stroke suspected. TECHNIQUE: Axial computed tomographic angiography images of the head with intravenous contrast. CTDI is 64.94 mGy and DLP is 961.59 mGy-cm. Automated exposure control was utilized for the study. A dose lowering technique was utilized adhering to the principles of ALARA. MIP reconstructed images were created and reviewed. CONTRAST: Patient received 115 ml optiray 320 of IV contrast COMPARISON: No relevant prior studies available. FINDINGS: Right internal carotid artery: No acute findings. Intracranial segment is patent with no significant stenosis. No aneurysm. Right anterior cerebral artery: Unremarkable. No occlusion or significant stenosis. No aneurysm. Right middle cerebral artery: Unremarkable. No occlusion or significant stenosis. No aneurysm. Right posterior cerebral artery: Unremarkable. No occlusion or significant stenosis. No aneurysm. Left internal carotid artery: No acute findings. Intracranial segment is patent with no significant stenosis. No aneurysm. Left anterior cerebral artery: Unremarkable. No occlusion or significant stenosis. No aneurysm. Left middle cerebral artery: Unremarkable. No occlusion or significant stenosis. No aneurysm. Left posterior cerebral artery: Unremarkable. No occlusion or significant stenosis. No aneurysm. IMPRESSION: No large vessel occlusion. Communications: Call Doctor Stroke Electronically signed by: Leander Patricio MD 11/21/23 22:16 PM Neck CTA 11/21/23 21:48 CR Exam(s): CTA NECK With Contrast IV Amt: 115 ml optiray 320 EXAM: CT Angiography Neck With Intravenous Contrast CLINICAL HISTORY: Reason for exam: neuro deficit, acute stroke suspected. TECHNIQUE: Routine carotid CT angiography protocol was performed with intravenous contrast. NASCET criteria using the distal ICAs for comparison were used for evaluation of stenoses. CTDI is 39.2 mGy and DLP is 460.2 mGy-cm. Automated exposure control was utilized for the study. A dose lowering technique was utilized adhering to the principles of ALARA. MIP reconstructed images were created and reviewed. CONTRAST: Patient received 115 ml optiray 320 of IV contrast COMPARISON: None. FINDINGS: VASCULATURE: Right common carotid artery: Unremarkable. No occlusion or significant stenosis. No dissection. Right internal carotid artery: Unremarkable. Extracranial segment is patent with no occlusion or significant stenosis. No dissection. Right external carotid artery: Unremarkable. No occlusion. Right vertebral artery: Unremarkable. No occlusion or significant stenosis. No dissection. Left common carotid artery: Unremarkable. No occlusion or significant stenosis. No dissection. Left internal carotid artery: Unremarkable. Extracranial segment is patent with no occlusion or significant stenosis. No dissection. Left external carotid artery: Unremarkable. No occlusion. Left vertebral artery: Unremarkable. No occlusion or significant stenosis. No dissection. IMPRESSION: No large vessel occlusion. Communications: Call Doctor Stroke Electronically signed by: Leander Patricio MD 11/21/23 22:17 PM ECG Additional Comments: EKG shows V paced rhythm at 70 PG Care Time/CCT Total # of Minutes Spent Total Time Spent with Patient: Total time spent is greater than 50% in coordination of care (as documented) at patient's floor/unit and/or counseling patient: Coding Level of Care Code 64205 INT INP/OBS CARE 3/75MIN Diagnoses Stroke-like symptoms R29.90 Syncope R55 Depression F32.9 Diabetes mellitus E11.9 GERD (gastroesophageal reflux disease) K21.9
[2023-11-22] MEDS ORDERED: GLUCOSE 40% GEL 15 GM TUBE PO PRN (01:52)
[2023-11-22] MEDS ORDERED: CARBOHYDRATES FOR HYPOGLYCEMIA PO PRN (01:52)
[2023-11-22] MEDS ORDERED: GLUCAGON FOR INJ 1 MG VIAL SQ PRN (01:52)
[2023-11-22] MEDS ORDERED: PHARMACIST DISCHARGE MED REC CONSULT PRN (01:52)
[2023-11-22] MEDS ORDERED: ONDANSETRON INJ 2 MG/ML 2 ML VIAL IV PRN (01:52)
[2023-11-22] MEDS ORDERED: GLUCOSE 10 TAB/TUBE PO PRN (01:52)
[2023-11-22] MEDS ORDERED: DEXTROSE 50% 50 ML SYRINGE IV PRN (01:52)
[2023-11-22] MEDS ORDERED: ALBUTEROL HFA 8 GM INHALER INH PRN (02:10)
[2023-11-22] MEDS: NITROGLYCERIN SL 0.4 MG/TAB TAB SL ONE (05:20)
[2023-11-22] MEDS: NITROGLYCERIN SL 0.4 MG/TAB TAB ONE (05:29)
[2023-11-22] MEDS: HYDROmorphone INJ 0.5 MG/0.5 ML SYR ONE (05:38)
[2023-11-22] MEDS: HYDROmorphone INJ 0.5 MG/0.5 ML SYR IV STA (05:39)
[2023-11-22 05:46] LABS: Basophils # (auto) 0.03 K/uL (0.00-0.20); Basophils % (auto) 0.6 %; Eosinophils # (auto) 0.14 K/uL (0.00-0.50); Eosinophils % (auto) 2.7 %; Hematocrit (blood only) 37.3 % (42.0-52.0); Immature Granulocytes # (auto) 0.01 K/uL (0.01-0.20); Immature Granulocytes % (auto) 0.2 %; Lymphocytes # (auto) 2.09 K/uL (1.20-3.40); Lymphocytes % (auto) 40.1 %; Mean Corpuscular Hemoglobin 26.8 pg (25.0-34.0); Mean Corpuscular Hgb Conc 32.2 g/dL (32.0-36.0); Mean Corpuscular Volume 83.4 fL (80.0-100.0); Mean Platelet Volume 8.6 fL (9.4-12.4); Monocytes # (auto) 0.41 K/uL (0.11-0.59); Monocytes % (auto) 7.9 %; Neutrophils # (auto) 2.53 K/uL (1.40-6.50); Neutrophils % (auto) 48.5 %; Platelet Count 222 K/uL (130-400); RDW Coefficient of Variation 14.6 % (11.5-14.5); RDW Standard Deviation 44.4 fL (36.4-46.3); Red Blood Count 4.47 M/uL (4.70-6.10); White Blood Count 5.21 K/ul (4.8-10.8)
[2023-11-22 05:54] LABS: BUN Creatinine Ratio 12.7 (10-20); Calcium 9.5 mg/dl (8.6-10.3); Chol HDL Ratio 2.2 (0-5); Creatinine Clr Calc Pharmacy 62.3 ml/min; Est GFR (African American) 71.4 ml/min; Est GFR (Non-African American) 61.6 ml/min
--- NOTE | 2023-11-22 06:14 | Communication Note ---
Date of Service: November 22, 2023 At approximately 5 AM, was instructed to see patient bedside. Patient was having new chest pain that was radiating to his jaw. Patient describes the c hest pain substernally. -EKG showed no changes compared to EKG done on admission. -Troponin ordered, negative. Will repeat troponin at 8 AM. -Gave nitro sublingually which only helped a little. -Gave 1 dose of Dilaudid 0.5 mg. Put on nitro sublingually as needed for chest pain.
[2023-11-22] MEDS: INSULIN ASPART PER UNIT CHARGE SC SCH (08:05)
[2023-11-22] MEDS: FAMOTIDINE 20 MG TAB PO SCH (08:06)
[2023-11-22] MEDS: DULoxetine HCL 60 MG CAP PO SCH (08:06)
[2023-11-22] MEDS: ASPIRIN 81 MG ECTAB PO SCH (08:06)
[2023-11-22] MEDS: hydrOXYzine HCl 25 MG TAB PO SCH ×2 (08:06→21:22)
[2023-11-22] MEDS: PANTOprazole 40 MG TAB PO SCH (08:06)
[2023-11-22] MEDS: FLUTICASONE FUROATE 200MCG 14 PUFFS/INHALER INH SCH (08:07)
[2023-11-22] MEDS: ARIPIprazole 1 MG/ML ORAL SOLN 150 ML BTL PO SCH (08:07)
--- NOTE | 2023-11-22 08:15 | XRay Report ---
XR chest 1V portable HISTORY: neuro deficit, acute stroke suspected COMPARISON: Chest 05/28/2023. FINDINGS: Low lung volumes. No pneumothorax. Slightly rotated study. No pleural effusions. The heart is mildly enlarged. Mild central pulmonary vascular congestion without overt edema. No focal lung con solidations to suggest a pneumonia. Left-sided pacemaker and poststernotomy changes again noted. Ther e is a spinal stimulator lead in place. IMPRESSION: Cardiomegaly and mild pulmonary vascular congestion without overt edema. ACT 112: Negative or not required by law. Electronically signed by: Ortega Munoz M.D. 11/22/2023 8:14 AM
[2023-11-22 08:50] LABS: Estimated Average Glucose 154 mg/dl
--- NOTE | 2023-11-22 09:17 | Electroencephalogram ---
EEG Procedure Note Date of Service November 22, 2023 Start / End Times Start Time: 716 End Time: 736 Referring Physician reviewed. History ?seizure Home Medication List Medication Instructions Recorded Confirmed Type albuterol sulfate 90 mcg/actuation 2 puff inhalation QID PRN 11/22/23 11/22/23 History aerosol inhaler Shortness Of Breath Or Wheezing aripiprazole 2 mg tablet 2 mg PO DAILY 11/22/23 11/22/23 History aspirin 81 mg tablet,delayed 81 mg PO DAILY 11/22/23 11/22/23 History release calcium carbonate 600 mg-vitamin 2 tab PO BID 11/22/23 11/22/23 History D3 10 mcg (400 unit) tablet (Calcium 600 + D(3)) ciclesonide 160 mcg/actuation 1 puff inhalation BID 11/22/23 11/22/23 History aerosol inhaler (Alvesco) duloxetine 60 mg capsule,delayed 60 mg PO BID 11/22/23 11/22/23 History release famotidine 20 mg tablet 20 mg PO BID 11/22/23 11/22/23 History hydroxyzine pamoate 25 mg capsule 25 mg PO AMHS 11/22/23 11/22/23 History hydroxyzine pamoate 50 mg capsule 50 mg PO HS 11/22/23 11/22/23 History insulin glargine 100 unit/mL 10 unit subcut DAILY 11/22/23 11/22/23 History subcutaneous solution insulin regular human 100 unit/mL 1 sliding scale dose subcut 11/22/23 11/22/23 History injection solution (Novolin R USEASDIRECTD Regular U-100 Insulin) metoprolol tartrate 25 mg tablet 25 mg PO BID 11/22/23 11/22/23 History pantoprazole 40 mg tablet,delayed 40 mg PO DAILY 11/22/23 11/22/23 History release potassium chloride 20 mEq 20 meq PO DAILY 11/22/23 11/22/23 History tablet,extended release prazosin 1 mg capsule 1 mg PO HS 11/22/23 11/22/23 History ramelteon 8 mg tablet 8 mg PO HS 11/22/23 11/22/23 History rosuvastatin 20 mg tablet 20 mg PO QPM 11/22/23 11/22/23 History tamsulosin 0.4 mg capsule 0.4 mg PO HS 11/22/23 11/22/23 History warfarin 2.5 mg tablet 2.5 mg PO .6XSWEEK 11/22/23 11/22/23 History warfarin 5 mg tablet 5 mg PO .QMON 11/22/23 11/22/23 History Inpatient Medication List Aripiprazole (Aripiprazole 1 Mg/Ml Oral Soln 150 Ml Btl) 2 mg PO DAILY LIN Stop: 12/22/23 08:59 Last Admin: 11/22/23 08:07 Dose: 2 mg Documented By: SS Aspirin (Aspirin 81 Mg Ectab) 81 mg PO DAILY LIN Stop: 12/22/23 08:59 Last Admin: 11/22/23 08:06 Dose: 81 mg Documented By: SS Duloxetine HCl (Duloxetine Hcl 60 Mg Cap) 60 mg PO BID LIN Stop: 12/22/23 08:59 Last Admin: 11/22/23 08:06 Dose: 60 mg Documented By: SS Famotidine (Famotidine 20 Mg Tab) 20 mg PO BID LIN Stop: 12/22/23 08:59 Last Admin: 11/22/23 08:06 Dose: 20 mg Documented By: SS Fluticasone Furoate (Fluticasone Furoate 200mcg 14 Puffs/Inhaler) 1 puffs INH DAILY LIN Stop: 12/22/23 08:59 Last Admin: 11/22/23 08:07 Dose: 1 puffs Documented By: SS Hydroxyzine HCl (Hydroxyzine Hcl 25 Mg Tab) 25 mg PO BID LIN Stop: 12/22/23 08:59 Last Admin: 11/22/23 08:06 Dose: 25 mg Documented By: SS Insulin Aspart (Insulin Aspart Per Unit Charge) 0 units SC ACHS LIN Stop: 12/22/23 07:29 Last Admin: 11/22/23 08:05 Dose: 2 units Documented By: SS Co-signed By: JESSENIA Pantoprazole Sodium (Pantoprazole 40 Mg Tab) 40 mg PO DAILY LIN Stop: 12/22/23 08:59 Last Admin: 11/22/23 08:06 Dose: 40 mg Documented By: SS Discontinued Medications Acetaminophen (Acetaminophen 1000 Mg/100 Ml Iv) Confirm Administered Dose 1,000 mg IV .STK-MED ONE Stop: 11/21/23 22:21 Last Admin: 11/21/23 22:24 Dose: 1,000 mg Documented By: PAL Hydromorphone HCl (Hydromorphone Inj 0.5 Mg/0.5 Ml Syr) 0.25 mg IV NOW STA Stop: 11/21/23 22:39 Last Admin: 11/21/23 22:58 Dose: 0.25 mg Documented By: PAL Hydromorphone HCl (Hydromorphone Inj 0.5 Mg/0.5 Ml Syr) 0.5 mg IV NOW STA Stop: 11/22/23 05:28 Last Admin: 11/22/23 05:39 Dose: Not Given Documented By: KARIN Hydromorphone HCl (Hydromorphone Inj 0.5 Mg/0.5 Ml Syr) Confirm Administered Dose 0.5 mg .ROUTE .STK-MED ONE Stop: 11/22/23 05:36 Last Admin: 11/22/23 05:38 Dose: 0.5 mg Documented By: KARIN Sodium Chloride (Nss) 1,000 mls @ 50 mls/hr IV .Q20H LIN Stop: 12/21/23 21:59 Last Infusion: 11/22/23 02:01 Dose: Infused Documented By: Admin: 11/21/23 22:25 Dose: 50 mls/hr Documented By: PAL Ioversol (Optiray 320 125ml) 115 ml IV ONCE ONE Stop: 11/21/23 21:56 Last Admin: 11/21/23 21:55 Dose: 115 ml Documented By: TAYLOR Nitroglycerin (Nitroglycerin 2% Ointment 30gm Tube) 0.5 inch EXT NOW STA Stop: 11/21/23 22:39 Last Admin: 11/21/23 22:58 Dose: 0.5 inch Documented By: PAL Nitroglycerin (Nitroglycerin Sl 0.4 Mg/Tab Tab) Confirm Administered Dose 0.4 mg .ROUTE .STK-MED ONE Stop: 11/22/23 05:19 Last Admin: 11/22/23 05:29 Dose: 0.4 mg Documented By: KARIN Nitroglycerin (Nitroglycerin Sl 0.4 Mg/Tab Tab) 0.4 mg SL ONCE ONE Stop: 11/22/23 05:20 Last Admin: 11/22/23 05:20 Dose: 0.4 mg Documented By: KARIN Description This is a 21 electrode EEG with a single channel dedicated to limited EKG. The electrodes were placed in accordance with the International 10-20 system. Interpretation This is a 21 electrode EEG with a single channel dedicated to limited EKG. The electrodes were placed in accordance with the International 10-20 system. There is a posterior dominant rhythm of 8 to 9 Hz which is symmetrically distributed and attenuates with eye opening. There is a normal anterior to posterior organization. Photic stimulation: unremarkable Hyperventilation performed: ___ unremarkable; x__ not performed. There is no focal slowing. No epileptiform abnormalities. Sleep stage: __ not achieved, __x_drowsy state, ___ Stage II, ___ REM stage achieved. Interpretation Normal-appearing awake/drowsy EEG. A normal EEG does not completely exclude a diagnosis of epilepsy. [facility] Procedure Codes Indication for Procedure (1) Syncope and collapse: Neurology Neurology: 07454 EEG include record awake & drowsy
--- NOTE | 2023-11-22 10:07 | XCELERA ---
[id number] [id number]
--- NOTE | 2023-11-22 10:56 | Electrocardiogram Report ---
Test Reason : Blood Pressure : / mmHG Vent. Rate : 070 BPM Atrial Rate : 068 BPM P-R Int : 000 ms QRS Dur : 140 ms QT Int : 448 ms P-R-T Axes : 000 100 023 degrees QTc Int : 483 ms Ventricular-paced rhythm Abnormal ECG When compared with ECG of 27-MAY-2023 23:20, No significant change was found Confirmed by Matthieu Anderson ([id number]) on 11/22/2023 10:55:54 AM Referred By: REFERRED SELF Confirmed By:Familia Anderson
--- NOTE | 2023-11-22 16:40 | Electrocardiogram Report ---
Test Reason : Blood Pressure : / mmHG Vent. Rate : 070 BPM Atrial Rate : 048 BPM P-R Int : 000 ms QRS Dur : 144 ms QT Int : 464 ms P-R-T Axes : 045 107 003 degrees QTc Int : 501 ms Ventricular-paced rhythm AV dissociation Abnormal ECG When compared with ECG of 21-NOV-2023 22:15, No significant change was found Confirmed by Matthieu Anderson ([id number]) on 11/22/2023 4:40:06 PM Referred By: REFERRED SELF Confirmed By:Familia Anderson
[2023-11-22] MEDS: WARFARIN SOD 5 MG TAB PO SCH (16:53)
--- NOTE | 2023-11-22 17:01 | Hospitalist Progress Note ---
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 Pacemaker is not MRI compatible. Will repeat head CT scan again tomorrow, November 23. Continue aspirin and Plavix. OT and PT assessments requested. It appears he will need rehab placement. (2) Syncope: Plan: Unclear if patient actually suffered a syncopal event or a seizure. Cardiac echo and EEG pending. Continue seizure precautions for now (3) Depression: Plan: Stable. Continue current medical management (4) Diabetes mellitus: Plan: ADA diet. Sliding scale coverage. Last hemoglobin A1c = 7.9 on 02/15/2022 (5) GERD (gastroesophageal reflux disease): Plan: Stable. Continue Protonix and Pepcid Plan It appears he will need IPR placement for rehabilitation. Hopefully within the next day or two Admission and Anticipated Discharge Date Admission Date: November 21, 2023 Subjective Alert and oriented. Pleasant. Right-sided weakness persists. He appears to have suffered an ischemic left CVA. Brain MRI scan cannot be obtained since his pacemaker is not compatible with MRI scanning. Will repeat head CT scan again tomorrow, November 23. OT and PT assessments requested. Case management notified that he will need rehab placement. He did have an episode of chest discomfort which resolved. No evidence of acute coronary syndrome. Review of Systems 2 Review of Systems: Constitutional-no fever or chills ENT-no blurred vision, no double vision, no epistaxis, no sore throat Respiratory-no cough, no wheezing, no shortness of breath Cardiac-no palpitations, no chest pain, no syncope GI-no nausea, vomiting, diarrhea, melena, hematochezia -no urinary retention, no urinary incontinence, no dysuria, no hematuria Musculoskeletal-no joint pain, no muscle tenderness Skin-no bruising, no rashes, no pruritus Neuro-right arm and right leg weakness. Psych-no depression, no anxiety Physical Exam 2 Physical Exam: General-alert and oriented x3, no fever, no chills HEENT-head atraumatic and normocephalic, pupils equal and reactive to light, extraocular muscles intact Neck-no lymphadenopathy or thyromegaly, trachea midline Chest-clear to auscultation. No rales, wheezing or rhonchi Cardiac-regular rate and rhythm, normal S1 and S2 Abdomen-normal bowel sounds, nontender, no hepatosplenomegaly Extremities-no cyanosis, clubbing, or edema Neuro-cranial nerves II through XII intact, right arm and right leg weakness noted. No facial droop Psych-normal affect, normal mood Results & Data Results & Data Vital Signs (Past 12 Hours) Vital Signs Temp Pulse Resp BP Pulse Ox O2 Del Method 11/22/23 15:57 36.6 C 70 18 128/78 98 Room Air 11/22/23 11:32 36.5 C 69 18 125/79 99 Room Air 11/22/23 07:55 36.6 C 70 19 120/82 99 Room Air 11/22/23 05:48 69 123/80 94 Room Air 11/22/23 05:40 69 17 136/80 96 Room Air 11/22/23 05:30 69 17 132/79 96 Room Air 11/22/23 05:23 71 17 145/88 H 98 Room Air 11/22/23 05:12 69 16 149/85 H 100 Room Air 11/22/23 04:55 69 17 145/83 H 100 Room Air Laboratory Results 11/22/23 05:20 11/22/23 05:20 PG Care Time/CCT Total # of Minutes Spent Total Time Spent with Patient: Total time spent is greater than 50% in coordination of care (as documented) at patient's floor/unit and/or counseling patient: Coding Level of Care Code 56246 SUB INP/OBS CARE 3/50MIN Diagnoses Stroke-like symptoms R29.90 Syncope R55 Depression F32.9 Diabetes mellitus E11.9 GERD (gastroesophageal reflux disease) K21.9
[2023-11-22] MEDS: PRAZOSIN HCL 1 MG CAP PO SCH (21:23)
[2023-11-22] MEDS: TAMSULOSIN HCL 0.4 MG CAP PO SCH (21:23)
[2023-11-22] MEDS: ROSUVASTATIN CALCIUM 20 MG TAB PO SCH (21:23)
[2023-11-22] MEDS: ACETAMINOPHEN 325 MG TAB PO PRN (23:59)
[2023-11-23] MEDS: NITROGLYCERIN SL 0.4 MG/TAB TAB SL PRN (02:06)
[2023-11-23] MEDS: HYDROmorphone INJ 0.5 MG/0.5 ML SYR ONE (02:30)
[2023-11-23] MEDS: HYDROmorphone INJ 0.5 MG/0.5 ML SYR IV STA ×2 (02:42→03:01)
[2023-11-23 02:50] LABS: Basophils # (auto) 0.02 K/uL (0.00-0.20); Basophils % (auto) 0.5 %; Eosinophils # (auto) 0.17 K/uL (0.00-0.50); Eosinophils % (auto) 3.9 %; Hematocrit (blood only) 36.6 % (42.0-52.0); Hemoglobin 11.9 g/dl (14.0-18.0); Immature Granulocytes # (auto) 0.01 K/uL (0.01-0.20); Immature Granulocytes % (auto) 0.2 %; Lymphocytes # (auto) 1.51 K/uL (1.20-3.40); Mean Corpuscular Hemoglobin 26.9 pg (25.0-34.0); Mean Corpuscular Hgb Conc 32.5 g/dL (32.0-36.0); Mean Corpuscular Volume 82.6 fL (80.0-100.0); Mean Platelet Volume 8.5 fL (9.4-12.4); Monocytes # (auto) 0.36 K/uL (0.11-0.59); Monocytes % (auto) 8.4 %; Neutrophils # (auto) 2.24 K/uL (1.40-6.50); Platelet Count 199 K/uL (130-400); RDW Coefficient of Variation 14.6 % (11.5-14.5); RDW Standard Deviation 43.6 fL (36.4-46.3); Red Blood Count 4.43 M/uL (4.70-6.10); White Blood Count 4.31 K/ul (4.8-10.8)
[2023-11-23 03:08] LABS: Calcium 9.1 mg/dl (8.6-10.3); Creatinine Clr Calc Pharmacy 68.3 ml/min; Est GFR (African American) 79.7 ml/min; Est GFR (Non-African American) 68.8 ml/min
[2023-11-23 03:16] LABS: INR 1.8 (0.9-1.1); Prothrombin Time 18.8 Seconds (9.0-12.0)
--- NOTE | 2023-11-23 07:56 | XRay Report ---
XR chest 1V portable HISTORY: chest pain COMPARISON: Chest 11/21/2023. FINDINGS: No pneumothorax. No pleural effusions. The heart remains enlarged. There are low lung volum es. Left basilar linear densities favor subsegmental atelectasis. Otherwise, no focal lung consolidat ions to suggest a pneumonia. No evidence for pulmonary edema. Left-sided pacemaker, poststernotomy ch anges, and spinal stimulator leads are again noted. IMPRESSION: Stable cardiomegaly. Otherwise, no acute process within the chest. ACT 112: Negative or not required by law. Electronically signed by: Ortega Munoz M.D. 11/23/2023 7:55 AM
--- NOTE | 2023-11-23 08:43 | CT Scan Report ---
CT head/brain wo con CLINICAL HISTORY: 58 years-old Male with ischemic left CVA, right hemiparesis. Acute strokelike symp toms with right-sided weakness TECHNIQUE: Multiple axial CT images of the head were obtained without contrast. A dose lowering tech nique was utilized adhering to the principles of ALARA. CT DOSE: 547.75 mGy.cm COMPARISON: 11/21/2023. FINDINGS: No acute intracranial hemorrhage, midline shift, intracranial mass, hydrocephalus, territorial ischem ia or abnormal extra-axial collection. Mild white matter hypodensities redemonstrated likely represen ting chronic microvascular scheme disease. Unchanged subcentimeter calcifications of the lentiform nu clei. Study is mildly motion degraded. The calvarium is intact. The paranasal sinuses, mastoid air cells, and middle ear cavities are clear . IMPRESSION: No acute intracranial abnormality identified. ACT 112: Negative or not required by law. The above report was generated using voice recognition software. It may contain grammatical, syntax o r spelling errors. Electronically signed by: Christopher Byers M.D. 11/23/2023 8:40 AM
--- NOTE | 2023-11-23 11:09 | Electrocardiogram Report ---
Test Reason : Blood Pressure : / mmHG Vent. Rate : 071 BPM Atrial Rate : 065 BPM P-R Int : 000 ms QRS Dur : 146 ms QT Int : 456 ms P-R-T Axes : 000 110 -01 degrees QTc Int : 495 ms Ventricular-paced rhythm Abnormal ECG When compared with ECG of 22-NOV-2023 05:02, No significant change was found Confirmed by Matthieu Anderson ([id number]) on 11/23/2023 11:08:58 AM Referred By: REFERRED SELF Confirmed By:Familia Anderson
[2023-11-23] MEDS: NITROGLYCERIN 2% OINTMENT 30GM TUBE EXT SCH (12:46)
--- NOTE | 2023-11-23 14:17 | Hospitalist Progress Note ---
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 Pacemaker is not MRI compatible. Repeat head CT scan done today, November 23, is again negative for CVA but clinically he has had an ischemic left CVA event. Continue aspirin and Plavix. OT and PT assessments requested. It appears he will need rehab placement. (2) Syncope: Plan: Unclear if patient actually suffered a syncopal event or a seizure. Cardiac echo reveals mild LVH with normal ejection fraction and no evidence of regional wall motion abnormalities. EEG ordered and pending. Continue seizure precautions for now (3) Chest pain: Plan: Typical and atypical features. Cardiology consultation requested. Topical nitrates added for now. Telemetry (4) Depression: Plan: Stable. Continue current medical management (5) Diabetes mellitus: Plan: ADA diet. Sliding scale coverage. Last hemoglobin A1c = 7.9 on 02/15/2022 (6) GERD (gastroesophageal reflux disease): Plan: Stable. Continue Protonix and Pepcid Plan It appears he will need IPR placement for rehabilitation. This will occur when he is cleared from a cardiac standpoint Admission and Anticipated Discharge Date Admission Date: November 21, 2023 Subjective Alert and oriented. He continues to have left-sided chest discomfort at rest that he describes as sharp but he says it radiates to the neck and arm. This could be angina and cardiology consultation requested. Topical nitroglycerin added for now. Head CT scan #2 is negative but he continues to have right hemiparesis consistent with ischemic left CVA that fortunately must be very small and likely he will recover completely from the right hemiparesis with additional physical therapy. Review of Systems 2 Review of Systems: Constitutional-no fever or chills ENT-no blurred vision, no double vision, no epistaxis, no sore throat Respiratory-no cough, no wheezing, no shortness of breath Cardiac-no palpitations, no chest pain, no syncope GI-no nausea, vomiting, diarrhea, melena, hematochezia -no urinary retention, no urinary incontinence, no dysuria, no hematuria Musculoskeletal-no joint pain, no muscle tenderness Skin-no bruising, no rashes, no pruritus Neuro-right arm and right leg weakness. Psych-no depression, no anxiety Physical Exam 2 Physical Exam: General-alert and oriented x3, no fever, no chills HEENT-head atraumatic and normocephalic, pupils equal and reactive to light, extraocular muscles intact Neck-no lymphadenopathy or thyromegaly, trachea midline Chest-clear to auscultation. No rales, wheezing or rhonchi Cardiac-regular rate and rhythm, normal S1 and S2 Abdomen-normal bowel sounds, nontender, no hepatosplenomegaly Extremities-no cyanosis, clubbing, or edema Neuro-cranial nerves II through XII intact, right arm and right leg weakness noted. No facial droop Psych-normal affect, normal mood Results & Data Results & Data Vital Signs (Past 12 Hours) Vital Signs Temp Pulse Pulse Resp BP Pulse Ox O2 Del Method 11/23/23 11:12 36.5 C 71 18 134/88 98 Room Air 11/23/23 08:10 36.4 C L 69 18 124/76 96 Room Air 11/23/23 07:40 70 11/23/23 02:40 70 16 120/78 94 Room Air 11/23/23 02:28 36.6 C 69 16 114/70 97 Room Air 11/23/23 02:19 70 17 143/75 H 95 Room Air 11/23/23 02:18 72 17 136/83 98 Room Air Laboratory Results 11/23/23 02:30 11/23/23 02:30 PG Care Time/CCT Total # of Minutes Spent Total Time Spent with Patient: Total time spent is greater than 50% in coordination of care (as documented) at patient's floor/unit and/or counseling patient: Coding Level of Care Code 07299 SUB INP/OBS CARE 3/50MIN Diagnoses Stroke-like symptoms R29.90 Syncope R55 Chest pain R07.9 Depression F32.9 Diabetes mellitus E11.9 GERD (gastroesophageal reflux disease) K21.9
--- NOTE | 2023-11-23 16:21 | Cardiology Consultation ---
Date of Consultation November 23, 2023 Assessment & Plan (1) Chest pain: (2) Syncope and collapse: (3) Pacemaker: (4) Tricuspid valve replaced: (5) CAD (coronary artery disease): (6) Complete heart block: Plan 1. Chest pain: This is a longstanding complaint. While he does have a history of coronary disease, his symptoms are nonexertional and extended in nature. There has been no rise in his cardiac biomarkers suggest any ischemic event. Additionally, there does not seem to be any specific change in the frequency or character of his symptoms over several years. As such, I would not approach this as unstable angina. I do not think this warrants any additional coronary evaluation. 2. Coronary disease: Remote history of PCI. As noted above, I do not believe his current symptoms represent angina. I would continue aggressive secondary prevention with high-dose rosuvastatin and a daily aspirin. 3. Syncope: Again, a longstanding problem. In the past this was felt to be related to orthostatic hypotension events themselves are curious in that there appears to be a long period of unresponsiveness. This would be unusual for cardiac etiology. While I do not have specific documentation, I suspect the vital signs were normal at the time of his initial evaluation. This would speak against a cardiac etiology. No arrhythmias detected on his pacemaker. This effectively excludes malignant ventricular arrhythmias. Pacemaker functions normally which exclude bradycardia. 4. Normally functioning bioprosthetic tricuspid valve. 5. Complete heart block: I believe this was the initial indication for placement of his pacemaker. The pacemaker does not function well. He was noted to have an early malfunction involving the atrial lead. At this point it appears that the atrial lead has been deactivated. Currently in VVIR mode. He does appear to have an atrial rhythm on his EKG. Unclear if he could be having some symptoms from affective pacemaker syndrome. We can explore the option for an atrial lead revision. History of Present Illness Reason for Consultation: Syncope, chest pain Requesting Physician: August Attending Physician: Vaibhav Koch MD History of Present Illness The patient is a 58-year-old inmate with an extensive past medical history to include coronary artery disease status post myocardial infarction and PCI in 2000, significant tricuspid regurgitation status post bioprosthetic tricuspid valve replacement in 2021 as well as placement of a dual chamber epicardial pacemaker at that time. The patient has a long history of chest pain and syncope. The symptoms date back several years and appear to have been persistent in nature. Patient was not very clear regarding symptoms leading up to his valve replacement, but clearly appear to have symptoms of chest pain and syncope before hand. He states that afterwards he may have had some improvement in breathing and episodes of syncope were less frequent for a short while. However, those symptoms have returned. He was brought to the hospital on this occasion due to an episode of unresponsiveness. The patient states that he was sitting watching TV in his cell when he began having symptoms of chest pain. Reportedly he was found on th e floor by his cell mate and brought to the [facility] for evaluation. He was subsequently transferred to our hospital for a possible stroke. According to the corrections officers present in his room the patient was unresponsive for an extended period. The patient did not recall any other prodrome. [facility] and reported feeling quite tired and having chest pains. He was initially administered nitroglycerin and eventually Dilaudid. His symptoms eventually resolved but lasted for well over an hour. Last evening the patient had another episode of his typical chest pain that again lasted a long time. His eventually responded to narcotic administration. He has a very sedentary individual due to a history of stroke resulting in some right-sided motor dysfunction. He is not to strenuous activity. He does report dizziness on occasion and presyncope fairly frequently. Most of the time this is associated with being upright position. His chest pain is not exertional. This described as severe, stabbing and precordial. Allergies Allergy/AdvReac Type Severity Reaction Status Date / Time lisinopril Allergy Severe ANAPHYLAXIS Verified 11/22/23 02:09 ibuprofen Allergy Intermediate HIVES Verified 11/22/23 02:09 morphine Allergy Intermediate HIVES Verified 11/22/23 02:09 capsaicin Allergy Unknown ON SCI Verified 11/22/23 02:09 [employer] MED LIST phenytoin Allergy Unknown ON SCI Verified 11/22/23 02:09 [employer] MED LIST Oc spray contraindication Allergy Unknown Uncoded 11/22/23 02:09 Home Medications Medication Instructions Recorded Confirmed Type albuterol sulfate 90 mcg/actuation 2 puff inhalation QID PRN 11/22/23 11/22/23 History aerosol inhaler Shortness Of Breath Or Wheezing aripiprazole 2 mg tablet 2 mg PO DAILY 11/22/23 11/22/23 History aspirin 81 mg tablet,delayed 81 mg PO DAILY 11/22/23 11/22/23 History release calcium carbonate 600 mg-vitamin 2 tab PO BID 11/22/23 11/22/23 History D3 10 mcg (400 unit) tablet (Calcium 600 + D(3)) ciclesonide 160 mcg/actuation 1 puff inhalation BID 11/22/23 11/22/23 History aerosol inhaler (Alvesco) duloxetine 60 mg capsule,delayed 60 mg PO BID 11/22/23 11/22/23 History release famotidine 20 mg tablet 20 mg PO BID 11/22/23 11/22/23 History hydroxyzine pamoate 25 mg capsule 25 mg PO AMHS 11/22/23 11/22/23 History hydroxyzine pamoate 50 mg capsule 50 mg PO HS 11/22/23 11/22/23 History insulin glargine 100 unit/mL 10 unit subcut DAILY 11/22/23 11/22/23 History subcutaneous solution insulin regular human 100 unit/mL 1 sliding scale dose subcut 11/22/23 11/22/23 History injection solution (Novolin R USEASDIRECTD Regular U-100 Insulin) metoprolol tartrate 25 mg tablet 25 mg PO BID 11/22/23 11/22/23 History pantoprazole 40 mg tablet,delayed 40 mg PO DAILY 11/22/23 11/22/23 History release potassium chloride 20 mEq 20 meq PO DAILY 11/22/23 11/22/23 History tablet,extended release prazosin 1 mg capsule 1 mg PO HS 11/22/23 11/22/23 History ramelteon 8 mg tablet 8 mg PO HS 11/22/23 11/22/23 History rosuvastatin 20 mg tablet 20 mg PO QPM 11/22/23 11/22/23 History tamsulosin 0.4 mg capsule 0.4 mg PO HS 11/22/23 11/22/23 History warfarin 2.5 mg tablet 2.5 mg PO .6XSWEEK 11/22/23 11/22/23 History warfarin 5 mg tablet 5 mg PO .QMON 11/22/23 11/22/23 History Patient History Medical History Pacemaker Chest pain Gout Transaminitis Pneumothorax Pneumomediastinum Acute myocardial infarction 2020 s/p LAD stent Esophagitis on EGD, [facility], 2020 Pulmonary hypertension CAD (coronary artery disease) Tricuspid regurgitation Constipation Hypomagnesemia Esophagitis Abdominal pain Vertigo BPH (benign prostatic hyperplasia) CAD (coronary artery disease) Syncope Atypical chest pain Hx SBO Angina pectoris History of CVA (cerebrovascular accident) Iron deficiency anemia Asthma Hyperlipidemia Hypertension Bowel obstruction DM type 2 (diabetes mellitus, type 2) Skin cancer Head injury Depression Peptic ulcer disease Sarcoidosis Surgical History Tricuspid valve replaced History of repair of hiatal hernia (02/19/22) Laparoscopic Repair of Hiatal Hernia; partial gastric fundoplication; posterior gastropexy(Not Applicable) - Luke De La Fuente DO S/P cardiac cath H/O exploratory laparotomy "05/31/2015 with lysis of adhesions, release of bowel obstruction, repair of incisional hernia" S/P coronary artery stent placement (05/07/13) "2000" H/O ventral hernia repair History of back surgery Family History Mother , age 67 Lung cancer Father , age 68 Lung cancer Brother Stroke age 55 Social History Smoking Status: Never smoker Second Hand Exposure: No; Do You Dip or Chew Tobacco: No; Tobacco Cessation Education Requested by Patient: No Hx Alcohol Use: No Hx Substance Use: No Preferred Language: Tuvaluan Communication Ability: Effective Visual Impairment: No Limitations First Calender Worker Required: No Beliefs That Will Affect Care: None marital status: Single Current Living Situation: Other Current Living Situation Comment: Long Term Other Information That Helps Us Care for You: No Feels Safe at Home: Declines to Answer Assistive Devices: Cane Review of Systems Review of Systems: Per HPI Physical Exam Physical Exam: The patient is alert and oriented. Mood and affect appeared normal. He answered all questions appropriately. HEENT: Pupils are equal and reactive to light and accommodation. Extraocular movements are intact. The sclerae are anicteric. Neuro: Cranial nerves intact Lungs: Clear to auscultation bilaterally. He has good air movement without use of accessory muscles. No rales wheezes or rhonchi. Cardiac: Heart demonstrates a regular rate and rhythm. Normal S1 and S2. No murmurs on examination. Pulses: The patient has palpable radial pulses bilaterally that are equal in intensity Extremities: There was no evidence of hypoperfusion. There is no cyanosis or clubbing. There is no edema. Skin: I did not appreciate any rashes on examination today. Results & Data Vital Signs (Past 12 Hours) Vital Signs Temp Pulse Pulse Resp BP Pulse Ox O2 Del Method 11/23/23 16:06 72 11/23/23 15:34 37.0 C 73 18 136/87 96 Room Air 11/23/23 11:12 36.5 C 71 18 134/88 98 Room Air 11/23/23 08:10 36.4 C L 69 18 124/76 96 Room Air 11/23/23 07:40 70 Laboratory Results Abnormal Lab Results 11/22/23 11/22/23 11/23/23 16:31 20:06 02:30 WBC 4.31 L RBC 4.43 L Hgb 11.9 L Hct 36.6 L MCV 82.6 MCH 26.9 MCHC 32.5 RDW Std Deviation 43.6 RDW Coeff of Eliana 14.6 H Plt Count 199 MPV 8.5 L Immature Gran % (Auto) 0.2 Neut % (Auto) 52.0 Lymph % (Auto) 35.0 [place] % (Auto) 8.4 Eos % (Auto) 3.9 Baso % (Auto) 0.5 Neut # (Auto) 2.24 Lymph # (Auto) 1.51 [place] # (Auto) 0.36 Eos # (Auto) 0.17 Baso # (Auto) 0.02 Immature Gran # (Auto) 0.01 PT 18.8 H INR 1.8 H Sodium 136 Potassium 4.0 Chloride 103 Carbon Dioxide 25 Anion Gap 8 BUN 15 Creatinine 1.15 Est Cr Clr Drug Dosing 68.3 Est GFR ( Amer) 79.7 Est GFR (Non-Af Amer) 68.8 BUN/Creatinine Ratio 13.0 Glucose 139 H POC Glucose 157 H 153 H Calcium 9.1 Troponin I High Sens 8.2 11/23/23 11/23/23 11/23/23 07:30 11:12 16:10 WBC RBC Hgb Hct MCV MCH MCHC RDW Std Deviation RDW Coeff of Eliana Plt Count MPV Immature Gran % (Auto) Neut % (Auto) Lymph % (Auto) [place] % (Auto) Eos % (Auto) Baso % (Auto) Neut # (Auto) Lymph # (Auto) [place] # (Auto) Eos # (Auto) Baso # (Auto) Immature Gran # (Auto) PT INR Sodium Potassium Chloride Carbon Dioxide Anion Gap BUN Creatinine Est Cr Clr Drug Dosing Est GFR ( Amer) Est GFR (Non-Af Amer) BUN/Creatinine Ratio Glucose POC Glucose 157 H 113 H 148 H Calcium Troponin I High Sens Diagnostic Findings Chest x-ray obtained at the time of admission did not reveal any acute cardiopulmonary process Neck CTA and head CTA did not reveal any large vessel occlusion, aneurysm or hemorrhage Head CT did not reveal any acute intracranial process A remote device interrogation was performed which did not reveal any recent arrhythmia. 1. Cardiac catheterization 2000 [place]: Lad PCI x2 in the setting of [place]. 2. Echo 01/21/2022 [facility]: EF 70% with normal wall motion. Moderately dilated RV with normal systolic function. Severe TR with [id number] pulmonary hypertension. 3. Cardiac catheterization 02/13/2022 [facility]: Pre valve surgery angiography. Mid LAD stent approximately 50% in stent restenoses on visual inspection. PRAVEEN 3 flow. IVUS of LAD mild CAD. FFR 0.85. Ostial Cx 40% by IVUS. D1 ostial 20- 30%. Dominant RCA with luminal irregularities. Developed chest discomfort during the procedure with radiation to left arm. LVEDP 10. No . PCWP 16. PA 32/13 with mean 19. RV 34/4. Mean RAP 5. CO by thermodilution 5.8 with a CI of 2.81. PVR 0.52. 4. Echo 02/14/2022 [facility]: LV EF 55-60%. Normal wall motion. Dilated RV with normal systolic function. Limited echo. 5. Tricuspid valve replacement 04/13/2022 [facility]: Bioprosthetic. Intraoperative b iatrial Maze procedure also performed. 6. Pacemaker [facility] April 2022: Dual-chamber epicardial [employer]. Likely placed for complete heart block following tricuspid valve replacement. ECG Additional Comments: EKG appears to demonstrate a very slow atrial with AV dissociation and a paced ventricular rhythm. PG Care Time/CCT Total # of Minutes Spent Total Time Spent with Patient: Total time spent is greater than 50% in coordination of care (as documented) at patient's floor/unit and/or counseling patient: Coding Level of Care Code 93012 INT INP/OBS CARE 375MIN Diagnoses Chest pain R07.9 Syncope and collapse R55 Pacemaker Z95.0 Tricuspid valve replaced Z95.4 CAD (coronary artery disease) I25.10 Complete heart block I44.2
[2023-11-23] MEDS: WARFARIN SOD 2.5 MG TAB PO SCH (16:42)
[2023-11-23] MEDS: HYDROmorphone INJ 1 MG/ML SYRINGE IV STA (17:38)
[2023-11-24 07:11] LABS: Basophils # (auto) 0.03 K/uL (0.00-0.20); Basophils % (auto) 0.8 %; Eosinophils # (auto) 0.14 K/uL (0.00-0.50); Eosinophils % (auto) 3.6 %; Hematocrit (blood only) 34.7 % (42.0-52.0); Hemoglobin 11.2 g/dl (14.0-18.0); Immature Granulocytes # (auto) 0.02 K/uL (0.01-0.20); Immature Granulocytes % (auto) 0.5 %; Lymphocytes # (auto) 0.92 K/uL (1.20-3.40); Lymphocytes % (auto) 23.7 %; Mean Corpuscular Hemoglobin 26.9 pg (25.0-34.0); Mean Corpuscular Hgb Conc 32.3 g/dL (32.0-36.0); Mean Corpuscular Volume 83.2 fL (80.0-100.0); Mean Platelet Volume 8.5 fL (9.4-12.4); Monocytes # (auto) 0.37 K/uL (0.11-0.59); Monocytes % (auto) 9.5 %; Neutrophils # (auto) 2.41 K/uL (1.40-6.50); Neutrophils % (auto) 61.9 %; Platelet Count 193 K/uL (130-400); RDW Coefficient of Variation 14.6 % (11.5-14.5); Red Blood Count 4.17 M/uL (4.70-6.10); White Blood Count 3.89 K/ul (4.8-10.8)
[2023-11-24 07:38] LABS: BUN Creatinine Ratio 14.4 (10-20); Calcium 8.4 mg/dl (8.6-10.3); Creatinine Clr Calc Pharmacy 66.6 ml/min; Est GFR (African American) 77.3 ml/min; Est GFR (Non-African American) 66.7 ml/min
[2023-11-24 07:43] LABS: INR 1.9 (0.9-1.1); Prothrombin Time 20.4 Seconds (9.0-12.0)
--- NOTE | 2023-11-24 10:08 | Pharmacy Report ---
- Date of Service November 24, 2023 - Pharmacy CVA/TIA Medication Review Medications to Prevent Stroke handout has been added to the patients discharge packet. Antiplatelet(s) * aspirin 81 mg PO daily Cholesterol * High intensity statin: rosuvastatin 20 mg daily DVT Prophylaxis * On warfarin Therapeutic Anticoagulation * Warfarin s/p tricuspid valve replacement Type 2 Diabetes * Patient has T2DM, but per Dr. Koch, a diabetes medication with proven CVD benefit will be deferred to their outpatient provider due to familiarity with risks/benefits of such therapies. "Medications to prevent stroke" handout has already been added to the patient's discharge packet, which instructs the patient to follow up with their outpatient provider to evaluate which diabetes medication with proven CVD benefit is best for them
[2023-11-24] MEDS: NITROGLYCERIN 2% OINTMENT 30GM TUBE EXT ONE (11:35)
--- NOTE | 2023-11-24 11:38 | Cardiology Progress Note ---
Date of Service November 24, 2023 Assessment & Plan (1) Chest pain: (2) Syncope and collapse: (3) Pacemaker: (4) Tricuspid valve replaced: (5) CAD (coronary artery disease): (6) Complete heart block: Plan 1. Chest pain: Noncardiac. Improved with topical nitroglycerin. I think this can be treated symptomatically. 2. Coronary disease: Remote history of PCI. As noted above, I do not believe his current symptoms represent angina. I would continue aggressive secondary prevention with high-dose rosuvastatin and a daily aspirin. 3. Syncope: No recurrence. Unclear etiology. Unlikely to be related to malignant arrhythmias. 4. Normally functioning bioprosthetic tricuspid valve. 5. Complete heart block: His pacemaker has poor function of the atrial lead and as a result poor coordination between the chambers. I think he would benefit from a lead revision with addition of a transvenous atrial lead. I did discuss this with the patient today he seems in favor. It is possible that some of symptoms would improve with better coordination of the chambers. Would also be able to better track any atrial arrhythmias. Procedure can be performed electively. Either during this admission or scheduled as an outpatient. Admission and Anticipated Discharge Date Admission Date: November 21, 2023 Subjective This morning the patient claimed he feeling well. He has not had any recurrent symptoms of chest discomfort. Minimally ambulatory, but no presyncope or syncope. Perhaps mild dizziness when upright. Review of Systems Review of Systems: Per HPI Physical Exam Physical Exam: The patient is alert and oriented. Mood and affect appeared normal. He answered all questions appropriately. HEENT: Pupils are equal and reactive to light and accommodation. Extraocular movements are intact. The sclerae are anicteric. Neuro: Cranial nerves intact Lungs: Clear to auscultation bilaterally. He has good air movement without use of accessory muscles. No rales wheezes or rhonchi. Cardiac: Heart demonstrates a regular rate and rhythm. Normal S1 and S2. No murmurs on examination. Pulses: The patient has palpable radial pulses bilaterally that are equal in intensity Extremities: There was no evidence of hypoperfusion. There is no cyanosis or clubbing. There is no edema. Skin: I did not appreciate any rashes on examination today. Results & Data Vital Signs (Past 12 Hours) Vital Signs Temp Pulse Resp BP BP Pulse Ox O2 Del Method 11/24/23 07:31 36.7 C 70 16 113/62 98 Room Air 11/24/23 02:48 37 C 69 18 113/71 99 Room Air 11/24/23 01:00 72 16 123/73 98 Room Air Laboratory Results Abnormal Lab Results 11/23/23 11/23/23 11/24/23 16:10 20:40 06:48 WBC 3.89 L RBC 4.17 L Hgb 11.2 L Hct 34.7 L MCV 83.2 MCH 26.9 MCHC 32.3 RDW Std Deviation 44.0 RDW Coeff of Eliana 14.6 H Plt Count 193 MPV 8.5 L Immature Gran % (Auto) 0.5 Neut % (Auto) 61.9 Lymph % (Auto) 23.7 Cameron % (Auto) 9.5 Eos % (Auto) 3.6 Baso % (Auto) 0.8 Neut # (Auto) 2.41 Lymph # (Auto) 0.92 L Cameron # (Auto) 0.37 Eos # (Auto) 0.14 Baso # (Auto) 0.03 Immature Gran # (Auto) 0.02 PT 20.4 H INR 1.9 H Sodium 137 Potassium 4.0 Chloride 105 Carbon Dioxide 26 Anion Gap 6 BUN 17 Creatinine 1.18 Est Cr Clr Drug Dosing 66.6 Est GFR ( Amer) 77.3 Est GFR (Non-Af Amer) 66.7 BUN/Creatinine Ratio 14.4 Glucose 117 H POC Glucose 148 H 136 H Calcium 8.4 L 11/24/23 07:30 WBC RBC Hgb Hct MCV MCH MCHC RDW Std Deviation RDW Coeff of Eliana Plt Count MPV Immature Gran % (Auto) Neut % (Auto) Lymph % (Auto) Cameron % (Auto) Eos % (Auto) Baso % (Auto) Neut # (Auto) Lymph # (Auto) Cameron # (Auto) Eos # (Auto) Baso # (Auto) Immature Gran # (Auto) PT INR Sodium Potassium Chloride Carbon Dioxide Anion Gap BUN Creatinine Est Cr Clr Drug Dosing Est GFR ( Amer) Est GFR (Non-Af Amer) BUN/Creatinine Ratio Glucose POC Glucose 117 H Calcium PG Care Time/CCT Total # of Minutes Spent Total Time Spent with Patient: Total time spent is greater than 50% in coordination of care (as documented) at patient's floor/unit and/or counseling patient: Coding Level of Care Code 95744 SUB INP/OBS CARE 2/35MIN Diagnoses Chest pain R07.9 Syncope and collapse R55 Pacemaker Z95.0 Tricuspid valve replaced Z95.4 CAD (coronary artery disease) I25.10 Complete heart block I44.2
--- NOTE | 2023-11-24 12:30 | Discharge Summary ---
Date of Service November 24, 2023 Admission HPI Per Admitting Provider Janak Curtis is a 58-year-old male with history of hypertension, hyperlipidemia, diabetes and prior stroke 7 years ago with residual right-sided weakness presenting from [facility] with concern for worsening right-sided weakness. Patient reports having tingling of his right face and right upper and lower extremity ongoing throughout the day. Around 1999 he developed an episode of severe stabbing substernal chest pain followed by a syncopal event. When he woke up he had a headache and worsening weakness of his right upper and right lower extremities. He also noted ongoing tingling on the right side of his face. The episode was witnessed by his cellmate, no report of seizure activity. EMS was contacted. Patient presented as a code stroke and was discussed with stroke neurologist at [place] who recommended continuing daily aspirin, continuing anticoagulation (heparin if patient not therapeutic on his INR and continued workup). Patient is on Coumadin with therapeutic INR of 2.1. Pacemaker interrogated with no arrhythmia In the ER patient is afebrile, hemodynamically stable, no acute distress ER course: Tylenol 1 g IV Principal Diagnosis Ischemic left CVA with right hemiparesis, noncardiac chest pain, possible syncope Discharge Exam General-alert and oriented x3, no fever, no chills HEENT-head atraumatic and normocephalic, pupils equal and reactive to light, extraocular muscles intact Neck-no lymphadenopathy or thyromegaly, trachea midline Chest-clear to auscultation. No rales, wheezing or rhonchi Cardiac-regular rate and rhythm, normal S1 and S2 Abdomen-normal bowel sounds, nontender, no hepatosplenomegaly Extremities-no cyanosis, clubbing, or edema Neuro-cranial nerves II through XII intact, right arm and right leg weakness noted. No facial droop Psych-normal affect, normal mood Discharge Data Allergies Allergy/AdvReac Type Severity Reaction Status Date / Time lisinopril Allergy Severe ANAPHYLAXIS Verified 11/22/23 02:09 ibuprofen Allergy Intermediate HIVES Verified 11/22/23 02:09 morphine Allergy Intermediate HIVES Verified 11/22/23 02:09 capsaicin Allergy Unknown ON SCI Verified 11/22/23 02:09 [facility] phenytoin Allergy Unknown ON SCI Verified 11/22/23 02:09 [facility] Oc spray contraindication Allergy Unknown Uncoded 11/22/23 02:09 Consultations 11/21/23 22:39 ED Decision to Admit Stat 11/23/23 12:36 Consult Cardiology Routine Ordered Studies 11/21/23 21:48 CT angio head w con Stat CT angio neck with con Stat CT head/brain wo con Stat 11/23/23 08:[address] [CT head/brain wo con] Routine Hospital Course (1) Stroke-like symptoms: Suspected ischemic left hemisphere CVA with resultant right hemiparesis. Pacemaker is not MRI compatible. Head CT scan done twice and both negative for evidence of CVA although clinically he has had a apparently small ischemic left CVA producing right hemiparesis. Continue aspirin and Coumadin. OT and PT assessments requested. It appears he will need rehab placement. (2) Syncope: Unclear if patient actually suffered a syncopal event or a seizure. Cardiac echo reveals mild LVH with normal ejection fraction and no evidence of regional wall motion abnormalities. No evidence of seizure activity while hospitalized (3) Chest pain: Cardiology consultation appreciated. This appears to be noncardiac chest pain and has been a chronic problem in the past. No evidence of acute coronary syndrome. Topical nitrates were discontinued. (4) Depression: Stable. Continue current medical management (5) Diabetes mellitus: ADA diet. Sliding scale coverage. Last hemoglobin A1c = 7.9 on 02/15/2022 (6) GERD (gastroesophageal reflux disease): Stable. Continue Protonix and Pepcid Plan IPR placement at [facility] today, November 24 Total Time Total Time Spent Total Time Spent (In Minutes): 45 minutes Discharge Plan Discharge Items Patient Disposition: Transfer Inpatient Rehab Fac Reason For Visit: ?STROKE Discharge Diagnosis: Suspected ischemic left CVA with resultant right hemiparesis, noncardiac chest pain, possible syncope Activity: As commented below Activity Comment: Up with assistance only Non-emergency contact: Primary Care Provider Call non-emergency contact if: your symptoms worsen Follow-up/Referrals: Shasta PEREIRA [Primary Care Provider] - Diet: Carb Consistent or DM2 and Heart Healthy Addtl Attending Provider Instructions: You will be transferred to [facility] rehabilitation facility for a while before return to the [facility]. Cardiology can change the pacemaker wire at a later date as an outpatient Pending Studies at Discharge: No Stand-Alone Forms: My [facility] [address], Medications to Prevent Stroke Skilled Items Patient informed of condition?: Yes DNR: No Discharge Level of Care: Acute rehab Communicable Disease: No Discharge Prognosis: Stable Lines: None Urinary Catheter: No Medications and DC Order Prescriptions: Continued insulin glargine [Semglee U-100 Insulin] 100 unit/mL Solution 10 unit SUBCUT DAILY prazosin 1 mg Capsule 1 mg PO HS hydroxyzine pamoate 50 mg Capsule 50 mg PO HS Rx Instructions: GIVE WEITH 25 MG = 75 MG HS warfarin 2.5 mg Tablet 2.5 mg PO .[id number] Rx Instructions: WED, WED, , WED, SAT, SUN aspirin [Aspir-Low] 81 mg Tablet,Delayed Release (Dr/Ec) 81 mg PO DAILY famotidine 20 mg Tablet 20 mg PO BID tamsulosin 0.4 mg Capsule 0.4 mg PO HS pantoprazole 40 mg Tablet,Delayed Release (Dr/Ec) 40 mg PO DAILY Novolin R Regular U100 Insulin 100 unit/mL Solution 1 sliding scale dose SUBCUT USEASDIRECTD Rx Instructions: [id number]= 2 UNITS, 251-300=4UNITS, 301-350=6 UNITS, 351-400=8UNITS, 401- 450=10 UNITS, 541-500=12 UNITS, . 500 call MD warfarin 5 mg Tablet 5 mg PO .QMON albuterol sulfate 90 mcg/actuation Hfa Aerosol Inhaler 2 puff INHALATION QID PRN (Reason: Shortness Of Breath Or Wheezing) hydroxyzine pamoate 25 mg Capsule 25 mg PO AMHS rosuvastatin 20 mg Tablet 20 mg PO QPM metoprolol tartrate 25 mg Tablet 25 mg PO BID Rx Instructions: Hold for heart rate of 60 & below, sbp of 100 or below duloxetine 60 mg Capsule,Delayed Release(Dr/Ec) 60 mg PO BID ramelteon 8 mg Tablet 8 mg PO HS aripiprazole 2 mg Tablet 2 mg PO DAILY calcium carbonate-vitamin D3 [Calcium 600 + D(3)] 600 mg-10 mcg (400 unit) Tablet 2 tab PO BID Alvesco 160 mcg/actuation Hfa Aerosol Inhaler 1 puff INHALATION BID potassium chloride 20 mEq Tablet Extended Release 20 meq PO DAILY Discharge Orders: Discharge Order (Routine); Ordered 11/24/23 Ordered By: Vaibhav De Leon/Other Patient Handouts: Managing Type 2 Diabetes Admission Data Admit Date/Time: 11/21/23 23:45 Attending Provider: Vaibhav Koch Admit Provider: Carli Soliman [facility] Other Providers: Carli Soliman; Kamari Matta; Eric Escamilla; Amanuel Lanier; Luis Alberto Urbano; Abhishek Caro; Yao Mccain Jr; Tomás Alicia; Ceci Marie; Radha Benitez; Matthieu De; Matthieu Anderson; Vaibhav Abernathy; Ana Yung; Nicole Castillo; Jourdan Guajardo; Jaden Randle; Darius Gutierrez; [facility] Coding Level of Care Code 14470 INP/OBS DISCH >30 MIN Diagnoses Stroke-like symptoms R29.90 Syncope R55 Chest pain R07.9 Depression F32.9 Diabetes mellitus E11.9 GERD (gastroesophageal reflux disease) K21.9
[2023-11-24] MEDS ORDERED: STROKE PATIENT DISCHARGE STA (12:32)
== END 2023-11-24 18:13 | DRG 65 ==
LOC: ED 21:41 → SUATTDRO 23:45 → 2S 23:45
DX: I10 Essential (primary) hypertension; Z86.73 Personal history of transient ischemic attack (TIA), and cerebral infarction without residual deficits; E11.9 Type 2 diabetes mellitus without complications; F32.A Depression, unspecified; Z79.82 Long term (current) use of aspirin; I44.2 Atrioventricular block, complete; Z95.0 Presence of cardiac pacemaker; R55 Syncope and collapse; R47.01 Aphasia; Z95.2 Presence of prosthetic heart valve; Z79.4 Long term (current) use of insulin; Z88.5 Allergy status to narcotic agent; I63.40 Cerebral infarction due to embolism of unspecified cerebral artery; K21.9 Gastro-esophageal reflux disease without esophagitis; I69.351 Hemiplegia and hemiparesis following cerebral infarction affecting right dominant side; Z79.01 Long term (current) use of anticoagulants; Z95.5 Presence of coronary angioplasty implant and graft; I25.119 Atherosclerotic heart disease of native coronary artery with unspecified angina pectoris

== ENCOUNTER 2024-10-03 21:37 | Inpatient (IN) ==
--- NOTE | 2024-10-03 22:03 | Emergency Department Note ---
Impression & Plan Hematemesis, Supratherapeutic INR, Acute upper gastrointestinal bleeding, Anemia ED Provider Note HISTORY OF PRESENT ILLNESS: Patient is a 58-year-old male presenting with hematemesis. Patient presents from [facility]. Patient reports that he got up and went to the bathroom this evening and started vomiting bright red blood. Patient is on Coumadin and reportedly had a [id number] INR at the half-way that was over 8. Patient reports he took his Coumadin this evening. He is on Coumadin for history of an aortic valve replacement. He reports that he has been feeling generally unwell for the last few days. Currently complaining of a diffuse headache. He has a history of a pacemaker and hypertension. Denies any DVT or PE history. He reports that earlier this evening he had an episode of bright red blood in his bowel movement. He denies any chest pain or shortness of breath. Denies any numbness or tingling or weakness in his extremities. ROS: as above PHYSICAL EXAM: Constitutional: Patient appears in no acute distress. HENT: Head: Normocephalic and atraumatic. Eyes: EOMI, PERRL Mouth/Throat: Mucous membranes moist. Noted to have dried blood around the oropharynx. Neck: Trachea midline. Neck supple. Cardiovascular: Paced rhythm. No rubs or gallops. Intact distal pulses. Pulmonary/Chest: No respiratory distress. Breath sounds clear and equal bilaterally. No wheezes or rales. Abdominal: Abdomen soft, no tenderness, rebound or guarding. Musculoskeletal: No edema, tenderness or deformity noted. Skin: Warm and dry. No rash, erythema, pallor or cyanosis Psychiatric: Appropriate mood and affect for situation. Neurological: Alert and keenly responsive. CN II-XII grossly intact, moving all extremities equally and fully. MDM: - Vitals signs showed hypertension. - History obtained via patient. History as above. - Though documented by nursing staff in the triage note, the patient does not have any blood in his right eye. - Chronic conditions affecting care: pulmonary HTN; CVA; HLD; HTN; CAD (s/p PCI); DM-2 - Differential diagnoses include, but are not limited to: esophageal variceal bleed; duodenal ulcer bleed; coagulopathy; rectal bleeding; esophageal tear - Order placed for continuous cardiac monitoring. At this time, monitor showed rate of 90 bpm with paced rhythm, per my interpretation. - External medical records reviewed. Discharge summary dated 11/24/2023 was reviewed. Patient was admitted at that time for ischemic left-sided CVA with right hemiparesis. - EKG interpreted by myself showed ventricular paced rhythm. Rate 78 bpm. - IV access obtained by nursing staff and labs sent. Given 4 mg IV zofran and 500 cc NS. Patient was taken to CT scan, but his IV that was placed by nursing staff infiltrated. He was poked multiple times without successful placement of peripheral IV. Midline placement was ordered, but significant delay in administering vitamin K and Protonix bolus and drip secondary to lack of IV access. - Laboratory workup interpreted by myself showed normal WBC; anemia (Hgb 8.3); supratherapeutic INR (>9.5); normal lactate; stable electrolytes; normal troponin - UA negative for infection - Type and screen obtained - Viral respiratory panel negative - CXR negative for pneumonia, per my interpretation - CT head wo contrast negative for acute pathology - 80 mg IV protonix bolus and protonix drip initiated. - 10 mg IV vitamin K ordered for supratherapeutic INR - Repeat H&H obtained after 2.5 hours in ER down to 7.5. Patient was typed and crossed for 2 units of packed red blood cells. No further grossly bloody bowel movements of glen hematemesis while in the emergency department during that time. - CTA chest showed no PE or dissection. Noted to have multiple patchy groundglass opacities in the left upper lobe and posterior basal segment of the bilateral lower lobes concerning for potential pneumonitis per radiology. - CTA abdomen/pelvis hiatal hernia. Diffuse subcutaneous edema/anasarca. - Discussion was had with skilled nursing case manager about patient's case and need for admission - Hospitalist, Dr. Tomlinson, consulted for admission - Patient admitted to [facility] service for further evaluation and management. I have personally spent 62 minutes of critical care time in the direct management of this patient. This includes bedside care, interpretation of diagnostic studies, and testing, discussion with consultants, patient, and family members, and other required patient management activities. This 62 minutes is in excess of all separately billable procedures. ASSESSMENT AND PLAN: Diagnosis: hematemesis; anemia; supratherapeutic INR; acute upper GI bleed Plan: admit Past Med/Surg History Problem List (Updated 10/04/24 @ 02:20 by Rosario Leblanc MD) Anemia (Acute) Acute upper gastrointestinal bleeding (Acute) Supratherapeutic INR (Acute) Hematemesis (Acute) Chest pain (Acute) Syncope and collapse (Acute) Stroke-like symptoms (Acute) Small bowel obstruction Diarrhea Anemia S/P coronary artery stent placement (05/07/13) "2000" Chest pain (Acute) Elevated INR Syncope (Acute) Elevated troponin (Acute) Acute neck pain (Acute) Arthritis (Chronic) Sarcoidosis (Chronic) Hyperlipidemia Asthma (Chronic) History of CVA (cerebrovascular accident) Chest pain due to CAD Abnormal nuclear stress test Atypical chest pain Dizzy Tricuspid regurgitation (Acute) Pulmonary hypertension Elevated troponin BPH w urinary obs/LUTS Hiatal hernia (Acute) S/P cardiac catheterization (Acute) History of repair of hiatal hernia (02/19/22) Laparoscopic Repair of Hiatal Hernia; partial gastric fundoplication; posterior gastropexy(Not Applicable) - Luke De La Fuente, DO Gout Anemia Falls (Acute) Syncope and collapse (Acute) Medical History Complete heart block Anticoagulated GERD (gastroesophageal reflux disease) Diabetes mellitus Pacemaker Chest pain Transaminitis Pneumothorax Pneumomediastinum Acute myocardial infarction 2020 s/p LAD stent Esophagitis on EGD, [facility], 2020 CAD (coronary artery disease) Constipation Hypomagnesemia Esophagitis Abdominal pain Vertigo BPH (benign prostatic hyperplasia) CAD (coronary artery disease) Syncope Atypical chest pain Hx SBO Angina pectoris Iron deficiency anemia Hypertension Bowel obstruction DM type 2 (diabetes mellitus, type 2) Skin cancer Head injury Depression Peptic ulcer disease Surgical History Tricuspid valve replaced S/P cardiac cath H/O exploratory laparotomy "05/31/2015 with lysis of adhesions, release of bowel obstruction, repair of incisional hernia" H/O ventral hernia repair History of back surgery Family History Mother , age 67 Lung cancer Father , age 68 Lung cancer Brother Stroke age 55 Social History Smoking Status: Never smoker Second Hand Exposure: No; Do You Dip or Chew Tobacco: No; Hx Alcohol Use: No Hx Substance Use: No Preferred Language: Yoruba Communication Ability: Effective Visual Impairment: No Limitations Electrical Apprentice Required: No Beliefs That Will Affect Care: None marital status: Single Current Living Situation: Other Current Living Situation Comment: Long Term Feels Safe at Home: Yes Assistive Devices: Cane Allergies Allergies Allergy/AdvReac Type Severity Reaction Status Date / Time lisinopril Allergy Severe ANAPHYLAXIS Verified 10/04/24 01:43 ibuprofen Allergy Intermediate HIVES Verified 10/04/24 01:43 morphine Allergy Intermediate HIVES Verified 10/04/24 01:43 capsaicin Allergy Unknown ON SCI Verified 10/04/24 01:43 [facility] MED LIST phenytoin Allergy Unknown ON SCI Verified 10/04/24 01:43 [employer] MED LIST Oc spray contraindication Allergy Unknown CONTRAINDICATED Uncoded 10/04/24 01:43 PER SCI [employer] Home Meds Home Medications Medication Instructions Recorded Confirmed albuterol sulfate 90 mcg/actuation 2 puff inhalation QID PRN 11/22/23 10/04/24 aerosol inhaler Shortness Of Breath Or Wheezing aspirin 81 mg tablet,delayed 81 mg PO DAILY 11/22/23 10/04/24 release calcium 600 mg (as 2 tab PO BID 11/22/23 10/04/24 carbonate)-vitamin D3 10 mcg (400 unit) tablet (Calcium 600 + D(3)) duloxetine 60 mg capsule,delayed 120 mg PO BID 11/22/23 10/04/24 release insulin glargine 100 unit/mL 10 unit subcut QAM 11/22/23 10/04/24 subcutaneous solution insulin regular human 100 unit/mL 1 sliding scale dose subcut 11/22/23 10/04/24 injection solution (Novolin R USEASDIRECTD Regular U-100 Insulin) metoprolol tartrate 25 mg tablet 25 mg PO BID 11/22/23 10/04/24 pantoprazole 40 mg tablet,delayed 40 mg PO QAM 11/22/23 10/04/24 release potassium chloride 20 mEq 20 meq PO QAM 11/22/23 10/04/24 tablet,extended release rosuvastatin 20 mg tablet 20 mg PO QPM 11/22/23 10/04/24 tamsulosin 0.4 mg capsule 0.4 mg PO HS 11/22/23 10/04/24 prazosin 2 mg capsule 2 mg PO HS 04/26/24 10/04/24 aripiprazole 20 mg tablet 20 mg PO HS 10/04/24 10/04/24 benztropine 2 mg tablet 2 mg PO HS 10/04/24 10/04/24 ciclesonide 160 mcg/actuation 1 puff inhalation BID 10/04/24 10/04/24 aerosol inhaler (Alvesco) warfarin 5 mg tablet 5 mg PO WK 10/04/24 10/04/24 warfarin 7.5 mg tablet 7.5 mg PO [id number] 10/04/24 10/04/24 Results & Data (ED) Vital Signs Vital Signs - 24 hr 10/03/24 21:42 10/03/24 21:42 10/03/24 21:48 Temperature 37.1 C Temperature Source Oral Pulse Rate 71 72 Pulse Rate [Right Finger] 70 Pulse Rhythm Regular Pulse Rhythm [Right Finger] Regular Pulse Strength Normal Pulse Strength [Right Finger] Normal Respiratory Rate 19 19 Respiratory Effort / Characteristics Non-Labored Non-Labored Respiratory Depth Normal Normal Respiratory Pattern Regular Regular Blood Pressure 148/82 H Blood Pressure [Right Arm] 148/82 H Blood Pressure Mean 104 Blood Pressure Mean [Right Arm] 104 Blood Pressure Position Lying Blood Pressure Position [Right Arm] Lying Pulse Oximetry 100 90 Oxygen Delivery Method Room Air Room Air Sepsis Recent Fever Within 48 Hours No Sepsis New/Unexplained Change in Mental Status No Sepsis Action Taken by Nursing No Action Required 10/03/24 22:15 10/04/24 00:31 10/04/24 01:46 Temperature Temperature Source Pulse Rate 90 70 Pulse Rate [Right Finger] 71 Pulse Rhythm Regular Pulse Rhythm [Right Finger] Regular Pulse Strength Pulse Strength [Right Finger] Normal Respiratory Rate 18 12 Respiratory Effort / Characteristics Non-Labored Respiratory Depth Normal Respiratory Pattern Regular Blood Pressure Blood Pressure [Right Arm] 157/89 H Blood Pressure Mean Blood Pressure Mean [Right Arm] 111 Blood Pressure Position Blood Pressure Position [Right Arm] Lying Pulse Oximetry 98 97 Oxygen Delivery Method Room Air Room Air Sepsis Recent Fever Within 48 Hours Sepsis New/Unexplained Change in Mental Status Sepsis Action Taken by Nursing 10/04/24 02:00 Temperature Temperature Source Pulse Rate Pulse Rate [Right Finger] 70 Pulse Rhythm Pulse Rhythm [Right Finger] Regular Pulse Strength Pulse Strength [Right Finger] Normal Respiratory Rate 21 Respiratory Effort / Characteristics Non-Labored Respiratory Depth Normal Respiratory Pattern Regular Blood Pressure Blood Pressure [Right Arm] 131/83 Blood Pressure Mean Blood Pressure Mean [Right Arm] 99 Blood Pressure Position Blood Pressure Position [Right Arm] Lying Pulse Oximetry 96 Oxygen Delivery Method Room Air Sepsis Recent Fever Within 48 Hours Sepsis New/Unexplained Change in Mental Status Sepsis Action Taken by Nursing Laboratory Data 10/03/24 23:58 10/03/24 22:05 Lab Results 10/03/24 10/03/24 10/03/24 Range/Units 21:58 22:05 22:17 WBC 5.11 (4.8-10.8) K/ul RBC 2.98 L (4.70-6.10) M/uL Hgb 8.3 L (14.0-18.0) g/dl POC Hgb 9.5 L (14.0-18.0) g/dl Hct 26.2 L (42.0-52.0) % POC Hct 28 L (42-52) % MCV 87.9 (80.0-100.0) fL MCH 27.9 (25.0-34.0) pg MCHC 31.7 L (32.0-36.0) g/dL RDW Std Deviation 53.1 H (36.4-46.3) fL RDW Coeff of Eliana 16.6 H (11.5-14.5) % Plt Count 193 (130-400) K/uL MPV 9.0 L (9.4-12.4) fL Immature Gran % (Auto) 0.2 % Neut % (Auto) 70.9 % Lymph % (Auto) 16.2 % [place] % (Auto) 9.6 % Eos % (Auto) 2.5 % Baso % (Auto) 0.6 % Neut # (Auto) 3.62 (1.40-6.50) K/uL Lymph # (Auto) 0.83 L (1.20-3.40) K/uL [place] # (Auto) 0.49 (0.11-0.59) K/uL Eos # (Auto) 0.13 (0.00-0.50) K/uL Baso # (Auto) 0.03 (0.00-0.20) K/uL Immature Gran # (Auto) 0.01 (0.01-0.20) K/uL PT > 90.0 H (9.0-12.0) Seconds INR > 9.5 H* (0.9-1.1) APTT 98 H* (21-31) Seconds PTT Ratio 3.6 POC Sodium 139 (135-144) mmol/L Sodium 140 (136-145) mmol/L POC Potassium 5.0 (3.3-5.0) mmol/L Potassium 4.2 (3.5-5.1) mmol/L POC Chloride 102 (101-112) mmol/L Chloride 104 (98-107) mmol/L Carbon Dioxide 31 (21-32) mmol/L POC Total CO2 31 (24-31) mmol/L Anion Gap 5 (3-11) POC Anion Gap 12.0 L (16-25) mmol/L POC BUN 17 (7-18) mg/dl BUN 14 (6-23) mg/dl Creatinine 1.02 (0.6-1.4) mg/dl POC Creatinine 1.1 (0.6-1.3) mg/dl Est Cr Clr Drug Dosing 77.0 ml/min eGFR 84.14 BUN/Creatinine Ratio 13.7 (10-20) Glucose 118 H (70-99(Fasting)) mg/dl POC Glucose (other) 118 H (70-99) mg/dl Lactate 0.8 (0.4-2.0) mmol/L Calcium 9.5 (8.6-10.3) mg/dl POC Ioniz Calcium Nury 1.21 (1.12-1.32) mmol/l Total Bilirubin 0.7 (0.2-1.0) mg/dl AST 32 (13-39) U/L ALT 28 (7-52) U/L Alkaline Phosphatase 118 H (34-104) U/L Troponin I High Sens 10.8 (0-20) pg/ml Total Protein 6.8 (6.0-8.3) gm/dl Albumin 4.0 (3.4-5.0) gm/dl Globulin 2.8 (2.5-4.0) gm/dl Albumin/Globulin Ratio 1.4 (0.9-2) Lipase 8 L (11-82) U/L Urine Color Urine Appearance (Clear) Urine pH (4.5-7.5) Ur Specific [place] (1.000-1.030) Urine Protein (Negative) Urine Glucose (UA) (Negative) Urine Ketones (Negative) Urine Blood (Negative) Urine Nitrite (Negative) Urine Bilirubin (Negative) Urine Urobilinogen (Negative) Ur Leukocyte Esterase (Negative) Adenovirus (PCR) Not Detected (NotDetected) B. pertussis DNA (PCR) Not Detected (NotDetected) B.parapertussis DNA PCR Not Detected (NotDetected) C. pneumoniae DNA (PCR) Not Detected (NotDetected) Coronavirus OC43 (PCR) Not Detected (NotDetected) Coronavirus HKU1 (PCR) Not Detected (NotDetected) Coronavirus 229E (PCR) Not Detected (NotDetected) SARS-CoV-2 (PCR) Not Detected (NotDetected) Coronavirus NL63 (PCR) Not Detected (NotDetected) Human Metapneumovir PCR Not Detected (NotDetected) Influenza Type A (PCR) Not Detected (NotDetected) Influenza Type B (PCR) Not Detected (NotDetected) M. pneumoniae (PCR) Not Detected (NotDetected) Parainfluenza 1 (PCR) Not Detected (NotDetected) Parainfluenza 2 (PCR) Not Detected (NotDetected) Parainfluenza 3 (PCR) Not Detected (NotDetected) Parainfluenza 4 (PCR) Not Detected (NotDetected) RSV (PCR) Not Detected (NotDetected) Entero/Rhino (PCR) Not Detected (NotDetected) Blood Type O Positive Antibody Screen NEGATIVE Crossmatch See Detail 10/03/24 10/03/24 Range/Units 23:15 23:58 WBC (4.8-10.8) K/ul RBC (4.70-6.10) M/uL Hgb 7.5 L (14.0-18.0) g/dl POC Hgb (14.0-18.0) g/dl Hct 23.7 L (42.0-52.0) % POC Hct (42-52) % MCV (80.0-100.0) fL MCH (25.0-34.0) pg MCHC (32.0-36.0) g/dL RDW Std Deviation (36.4-46.3) fL RDW Coeff of Eliana (11.5-14.5) % Plt Count (130-400) K/uL MPV (9.4-12.4) fL Immature Gran % (Auto) % Neut % (Auto) % Lymph % (Auto) % [place] % (Auto) % Eos % (Auto) % Baso % (Auto) % Neut # (Auto) (1.40-6.50) K/uL Lymph # (Auto) (1.20-3.40) K/uL [place] # (Auto) (0.11-0.59) K/uL Eos # (Auto) (0.00-0.50) K/uL Baso # (Auto) (0.00-0.20) K/uL Immature Gran # (Auto) (0.01-0.20) K/uL PT (9.0-12.0) Seconds INR (0.9-1.1) APTT (21-31) Seconds PTT Ratio POC Sodium (135-144) mmol/L Sodium (136-145) mmol/L POC Potassium (3.3-5.0) mmol/L Potassium (3.5-5.1) mmol/L POC Chloride (101-112) mmol/L Chloride (98-107) mmol/L Carbon Dioxide (21-32) mmol/L POC Total CO2 (24-31) mmol/L Anion Gap (3-11) POC Anion Gap (16-25) mmol/L POC BUN (7-18) mg/dl BUN (6-23) mg/dl Creatinine (0.6-1.4) mg/dl POC Creatinine (0.6-1.3) mg/dl Est Cr Clr Drug Dosing ml/min eGFR BUN/Creatinine Ratio (10-20) Glucose (70-99(Fasting)) mg/dl POC Glucose (other) (70-99) mg/dl Lactate (0.4-2.0) mmol/L Calcium (8.6-10.3) mg/dl POC Ioniz Calcium [place] (1.12-1.32) mmol/l Total Bilirubin (0.2-1.0) mg/dl AST (13-39) U/L ALT (7-52) U/L Alkaline Phosphatase (34-104) U/L Troponin I High Sens (0-20) pg/ml Total Protein (6.0-8.3) gm/dl Albumin (3.4-5.0) gm/dl Globulin (2.5-4.0) gm/dl Albumin/Globulin Ratio (0.9-2) Lipase (11-82) U/L Urine Color Yellow Urine Appearance Clear (Clear) Urine pH 8.0 H (4.5-7.5) Ur Specific [place] 1.019 (1.000-1.030) Urine Protein Negative (Negative) Urine Glucose (UA) Negative (Negative) Urine Ketones Negative (Negative) Urine Blood Negative (Negative) Urine Nitrite Negative (Negative) Urine Bilirubin Negative (Negative) Urine Urobilinogen Negative (Negative) Ur Leukocyte Esterase Negative (Negative) Adenovirus (PCR) (NotDetected) B. pertussis DNA (PCR) (NotDetected) B.parapertussis DNA PCR (NotDetected) C. pneumoniae DNA (PCR) (NotDetected) Coronavirus OC43 (PCR) (NotDetected) Coronavirus HKU1 (PCR) (NotDetected) Coronavirus 229E (PCR) (NotDetected) SARS-CoV-2 (PCR) (NotDetected) Coronavirus NL63 (PCR) (NotDetected) Human Metapneumovir PCR (NotDetected) Influenza Type A (PCR) (NotDetected) Influenza Type B (PCR) (NotDetected) M. pneumoniae (PCR) (NotDetected) Parainfluenza 1 (PCR) (NotDetected) Parainfluenza 2 (PCR) (NotDetected) Parainfluenza 3 (PCR) (NotDetected) Parainfluenza 4 (PCR) (NotDetected) RSV (PCR) (NotDetected) Entero/Rhino (PCR) (NotDetected) Blood Type Antibody Screen Crossmatch Administered Medications Pantoprazole Sodium 40 mg/ (Dextrose) 100 mls @ 20 mls/hr IV Q5H LIN Stop: 11/02/24 22:59 Last Admin: 10/04/24 01:04 Dose: 8 mg/hr, 20 mls/hr Documented By: SHB Discontinued Medications Sodium Chloride (Nss) 500 mls @ 999 mls/hr IV .Q31M ONE Stop: 10/03/24 22:35 Last Infusion: 10/04/24 00:13 Dose: Infused Documented By: Admin: 10/03/24 23:09 Dose: 999 mls/hr Documented By: JEANA Pantoprazole Sodium 80 mg/ (Dextrose) 120 mls @ 480 mls/hr IV NOW ONE Stop: 10/03/24 22:56 Last Infusion: 10/04/24 00:20 Dose: Infused Documented By: Admin: 10/04/24 00:03 Dose: 480 mls/hr Documented By: JEANA Phytonadione 10 mg/ Dextrose 51 mls @ 102 mls/hr IV ONE ONE Stop: 10/04/24 00:13 Last Infusion: 10/04/24 01:04 Dose: Infused Documented By: Admin: 10/04/24 00:33 Dose: 102 mls/hr Documented By: JEANA Ioversol (Optiray 320 125ml) 118 ml IV ONCE ONE Stop: 10/04/24 00:30 Last Admin: 10/04/24 00:30 Dose: 118 ml Documented By: SOUTH Ondansetron HCl (Ondansetron Inj 2 Mg/Ml 2 Ml Vial) 4 mg IV NOW STA Stop: 10/03/24 22:06 Last Admin: 10/03/24 23:09 Dose: 4 mg Documented By: JEANA Pantoprazole Sodium (Pantoprazole Bolus/Drip) 1 each IV NOW STA Stop: 10/03/24 22:43 Last Admin: 10/04/24 01:00 Dose: 1 each Documented By: JEANA Imaging Data Radiologist's Impression: Abdomen/Pelvis CTA 10/03/24 21:58 EXAM: CT angio abdomen pelvis w con CLINICAL HISTORY: BRBPR, supratherapeutic inr 118 cc''s optiray 320 TECHNIQUE: Contrast enhanced thin slice CT angiography scan of the abdominal aorta was performed with intravenous contrast. Angiographic images were processed, 3D MIP images were acquired for interpretation. Contiguous axial images were obtained. Reformatted coronal and sagittal images were also reviewed. If IV contrast material had not been administered, the likelihood of detecting abnormalities relevant to the patients condition would have been substantially decreased. CT scan was performed according to ALARA (as low as reasonable achievable). COMPARISON: 04/26/2024 18:37:39 [employer] WORK[employer] FINDINGS: Abdominal aorta is normal in course, calibre and opacification. Origin of coeliac artery, superior mesenteric artery , bilateral main renal and lumbar arteries are normal with no hemodynamically significant ostial stenosis noted. Bilateral common, external and internal iliac arteries are normal in course, caliber and opacification. Solid abdominal organs including liver, spleen, pancreas and bilateral kidneys reveal no significant abnormality. Bowel loops are grossly unremarkable. No evidence of ascites. Sliding hiatus hernia seen Diffuse subcutaneous edema/anasarca noted. Colon shows fecal and gaseous distension. IMPRESSION: Sliding hiatus hernia seen-same. Diffuse subcutaneous edema/anasarca noted.-new finding. No obvious aortic dissection or aneurysm. Electronically signed by John Colmenares 10-04-2024 02:15 AM Chest X-Ray 10/03/24 21:58 Exam(s): XR CXR 1 VIEW EXAM: XR Chest, 1 View CLINICAL HISTORY: Reason for exam: vomiting. TECHNIQUE: Frontal view of the chest. COMPARISON: No relevant prior studies available. FINDINGS: Lungs: No airspace consolidation. Pleural space: Unremarkable. No pleural effusion or pneumothorax. Heart: Prior sternotomy. No cardiomegaly. Possible atrial appendage clip. No vascular congestion. Bones/joints: No acute findings. Tubes, lines and devices: Left chest wall AICD-pacemaker. Spinal stimulator leads over the mid thoracic level. IMPRESSION: No acute findings in the chest. Electronically signed by: Greg Carr M.D. 10/04/24 00:[address] 10/03/24 21:58 Exam(s): CT HEAD Without Contrast EXAM: CT Head Without Intravenous Contrast CLINICAL HISTORY: Reason for exam: headache; superatherapeutic INR. TECHNIQUE: Axial computed tomography images of the head/brain without intravenous contrast. CTDI is 37.51 mGy and DLP is 624.41 mGy-cm. Automated exposure control was utilized for the study. A dose lowering technique was utilized adhering to the principles of ALARA. COMPARISON: No relevant prior studies available. FINDINGS: Brain: Age-related parenchymal volume loss. Mild chronic small vessel ischemic change. [place]-white matter differentiation maintained. No hemorrhage, mass effect, parenchymal edema, or midline shift. Ventricles: Unremarkable. No hydrocephalus. Bones/joints: Unremarkable. No acute fracture. Soft tissues: Unremarkable. Vasculature: Intracranial atherosclerosis. Sinuses: Unremarkable as visualized. Mastoid air cells: Unremarkable as visualized. No mastoid effusion. IMPRESSION: No acute intracranial process. Electronically signed by: Greg Carr M.D. 10/04/24 00:13 AM Chest CTA 10/03/24 22:04 EXAM: CT angio chest dissec wo/w con CLINICAL HISTORY: hematemesis, supratherapeutic inr 118 cc''s optiray 320 TECHNIQUE: Contiguous axial images were obtained from the neck base through the upper abdomen following intravenous administration of iodinated contrast material. Angiographic images were processed, 3D MIP images were acquired for interpretation. If IV contrast material had not been administered, the likelihood of detecting abnormalities relevant to the patient's condition would have been substantially decreased. Coronal and sagittal 3-D MIPs were likewise performed and indicated to increase the sensitivity of detectin diffuse clinically relevant pathology. CT scan was performed according to ALARA (as low as reasonable achievable). COMPARISON: 05/07/2023 15:17:11 [employer] WORK[employer]. FINDINGS: Multiple patchy ground-glass opacities are noted involving apicoposterior segment of left upper lobe and posterior basal segment of bilateral lower lobes Adequate contrast bolus without evidence of pulmonary embolism. The central airways are patent. The rest of lungs are clear. No pleural effusion. The heart, aorta, and pulmonary arteries are of normal size and configuration. There are no appreciable coronary artery and aortic atherosclerotic calcifications. No pericardial effusion is identified. The thyroid is unremarkable. No mediastinal, hilar, or axillary lymphadenopathy is noted. No suspicious lytic or sclerotic osseous lesions are identified. IMPRESSION: Multiple patchy ground-glass opacities are noted involving apicoposterior segment of left upper lobe and posterior basal segment of bilateral lower lobes- possibility of pneumonitis.-new finding. 1. No evidence of pulmonary embolism No obvious aortic dissection or aneurysm. Electronically signed by John Colmenares 10-04-2024 02:11 AM Discharge Plan Visit Data Chief Complaint: Headache Stated Complaint: HEADACHE, HYPERTENSION ED Provider: Rosario Leblanc Discharge Problem: Hematemesis, Supratherapeutic INR, Acute upper gastrointestinal bleeding, Anemia Forms Stand Alone Forms: [employer] Prescriptions Prescriptions: No Action insulin glargine 100 unit/mL Solution 10 unit SUBCUT QAM aspirin 81 mg Tablet,Delayed Release (Dr/Ec) 81 mg PO DAILY tamsulosin 0.4 mg Capsule 0.4 mg PO HS pantoprazole 40 mg Tablet,Delayed Release (Dr/Ec) 40 mg PO QAM Novolin R Regular U100 Insulin 100 unit/mL Solution 1 sliding scale dose SUBCUT USEASDIRECTD Rx Instructions: [id number]= 2 UNITS, 251-300=4UNITS, 301-350=6 UNITS, 351-400=8UNITS, 401- 450=10 UNITS, 541-500=12 UNITS, . 500 call albuterol sulfate 90 mcg/actuation Hfa Aerosol Inhaler 2 puff INHALATION QID PRN (Reason: Shortness Of Breath Or Wheezing) rosuvastatin 20 mg Tablet 20 mg PO QPM metoprolol tartrate 25 mg Tablet 25 mg PO BID Rx Instructions: Hold for heart rate of 60 & below, sbp of 100 or below duloxetine 60 mg Capsule,Delayed Release(Dr/Ec) 120 mg PO BID Rx Instructions: TAKE TWO CAPSULES AT BEDTIME calcium carbonate-vitamin D3 [Calcium 600 + D(3)] 600 mg-10 mcg (400 unit) Tablet 2 tab PO BID potassium chloride 20 mEq Tablet Extended Release 20 meq PO QAM prazosin 2 mg Capsule 2 mg PO HS warfarin 5 mg Tablet 5 mg PO WK Rx Instructions: TAKE 5MG EVERY WEDNESDAY warfarin 7.5 mg Tablet 7.5 mg PO 6XWK Rx Instructions: TAKE 7.5 MG EVERY WEDNESDAY/WEDNESDAY/WEDNESDAY/ WEDNESDAY/WEDNESDAY/WEDNESDAY. aripiprazole 20 mg Tablet 20 mg PO HS benztropine 2 mg Tablet 2 mg PO HS Alvesco 160 mcg/actuation Hfa Aerosol Inhaler 1 puff INHALATION BID Referrals Referrals: Shasta PEREIRA [Primary Care Provider] -
[2024-10-03 22:10] LABS: iSTAT Creatinine 1.1 mg/dl (0.6-1.3); iSTAT Hemoglobin 9.5 g/dl (14.0-18.0); iSTAT Ionized Calcium 1.21 mmol/l (1.12-1.32)
[2024-10-03 22:16] LABS: Basophils # (auto) 0.03 K/uL (0.00-0.20); Basophils % (auto) 0.6 %; Eosinophils # (auto) 0.13 K/uL (0.00-0.50); Eosinophils % (auto) 2.5 %; Hematocrit (blood only) 26.2 % (42.0-52.0); Hemoglobin 8.3 g/dl (14.0-18.0); Immature Granulocytes # (auto) 0.01 K/uL (0.01-0.20); Immature Granulocytes % (auto) 0.2 %; Lymphocytes # (auto) 0.83 K/uL (1.20-3.40); Lymphocytes % (auto) 16.2 %; Mean Corpuscular Hemoglobin 27.9 pg (25.0-34.0); Mean Corpuscular Hgb Conc 31.7 g/dL (32.0-36.0); Mean Corpuscular Volume 87.9 fL (80.0-100.0); Monocytes # (auto) 0.49 K/uL (0.11-0.59); Monocytes % (auto) 9.6 %; Neutrophils # (auto) 3.62 K/uL (1.40-6.50); Neutrophils % (auto) 70.9 %; Platelet Count 193 K/uL (130-400); RDW Coefficient of Variation 16.6 % (11.5-14.5); RDW Standard Deviation 53.1 fL (36.4-46.3); Red Blood Count 2.98 M/uL (4.70-6.10); White Blood Count 5.11 K/ul (4.8-10.8)
[2024-10-03 22:33] LABS: Albumin Globulin Ratio 1.4 (0.9-2); BUN Creatinine Ratio 13.7 (10-20); Bilirubin,Total 0.7 mg/dl (0.2-1.0); Calcium 9.5 mg/dl (8.6-10.3); Globulin 2.8 gm/dl (2.5-4.0); Potassium 4.2 mmol/L (3.5-5.1); Total Protein 6.8 gm/dl (6.0-8.3)
[2024-10-03 22:41] LABS: Troponin I High Sensitivity 10.8 pg/ml (0-20)
[2024-10-03] MEDS: SODIUM CHLORIDE 0.9% 500 ML IV ONE (23:09)
[2024-10-03] MEDS: ONDANSETRON INJ 2 MG/ML 2 ML VIAL IV STA (23:09)
[2024-10-03 23:31] LABS: Adenovirus PCR Not Detected (NotDetected); Bordetella parapertussis PCR Not Detected (NotDetected); Bordetella pertussis PCR Not Detected (NotDetected); Chlamydia pneumoniae PCR Not Detected (NotDetected); Coronavirus 229E PCR Not Detected (NotDetected); Coronavirus CoV-2 (COVID19)PCR Not Detected (NotDetected); Coronavirus HKU1 PCR Not Detected (NotDetected); Coronavirus NL63 PCR Not Detected (NotDetected); Coronavirus OC43PCR Not Detected (NotDetected); Human Metapneumovirus PCR Not Detected (NotDetected); Influenza A PCR Not Detected (NotDetected); Influenza B PCR Not Detected (NotDetected); Mycoplasma pneumoniae PCR Not Detected (NotDetected); Parainfluenza Virus 1 PCR Not Detected (NotDetected); Parainfluenza Virus 2 PCR Not Detected (NotDetected); Parainfluenza Virus 3 PCR Not Detected (NotDetected); Parainfluenza Virus 4 PCR Not Detected (NotDetected); Respiratory Syncytial VirusPCR Not Detected (NotDetected); Rhinovirus/Enterovirus PCR Not Detected (NotDetected)
[2024-10-03 23:42] LABS: Partial Thromboplastin Ratio 3.6; Prothrombin Time > 90.0 Seconds (9.0-12.0)
[2024-10-03 23:45] LABS: INR > 9.5 (0.9-1.1); Partial Thromboplastin Time 98 Seconds (21-31)
[2024-10-03 23:53] LABS: Appearance Urine Clear (Clear); Bilirubin Urine Negative (Negative); Blood Urine Negative (Negative); Color Urine Yellow; Glucose Urine UA Negative (Negative); Ketones Urine Negative (Negative); Leukocyte Esterase Urine Negative (Negative); Nitrite Urine Negative (Negative); Protein Urine Negative (Negative); Specific Gravity Urine 1.019 (1.000-1.030); Urobilinogen Urine Negative (Negative)
[2024-10-04] MEDS: PANTOprazole 80 MG in DEXTROSE 5% 100 ML IV ONE (00:03)
--- NOTE | 2024-10-04 00:14 | CT Scan Report ---
Exam(s): CT HEAD Without Contrast EXAM: CT Head Without Intravenous Contrast CLINICAL HISTORY: Reason for exam: headache; superatherapeutic INR. TECHNIQUE: Axial computed tomography images of the head/brain without intravenous contrast. CTDI is 37.51 mGy and DLP is 624.41 mGy-cm. Automated exposure control was utilized for the study. A dose lowering technique was utilized adhering to the principles of ALARA. COMPARISON: No relevant prior studies available. FINDINGS: Brain: Age-related parenchymal volume loss. Mild chronic small vessel ischemic change. Encarnacion-white matter differentiation maintained. No hemorrhage, mass effect, parenchymal edema, or midline shift. Ventricles: Unremarkable. No hydrocephalus. Bones/joints: Unremarkable. No acute fracture. Soft tissues: Unremarkable. Vasculature: Intracranial atherosclerosis. Sinuses: Unremarkable as visualized. Mastoid air cells: Unremarkable as visualized. No mastoid effusion. IMPRESSION: No acute intracranial process. Electronically signed by: Greg Carr M.D. 10/04/24 00:13 AM
[2024-10-04 00:18] LABS: Hematocrit (blood only) 23.7 % (42.0-52.0); Hemoglobin 7.5 g/dl (14.0-18.0)
--- NOTE | 2024-10-04 00:24 | XRay Report ---
Exam(s): XR CXR 1 VIEW EXAM: XR Chest, 1 View CLINICAL HISTORY: Reason for exam: vomiting. TECHNIQUE: Frontal view of the chest. COMPARISON: No relevant prior studies available. FINDINGS: Lungs: No airspace consolidation. Pleural space: Unremarkable. No pleural effusion or pneumothorax. Heart: Prior sternotomy. No cardiomegaly. Possible atrial appendage clip. No vascular congestion. Bones/joints: No acute findings. Tubes, lines and devices: Left chest wall AICD-pacemaker. Spinal stimulator leads over the mid thoracic level. IMPRESSION: No acute findings in the chest. Electronically signed by: Greg Carr M.D. 10/04/24 00:22 AM
[2024-10-04] MEDS: OPTIRAY 320 125ml IV ONE (00:30)
[2024-10-04] MEDS: PHYTONADIONE 10 MG in DEXTROSE 5% 50 ML IV ONE (00:33)
[2024-10-04] MEDS ORDERED: SODIUM CHLORIDE 0.9% 100 ML IV PRN ×2 (00:36→03:14)
[2024-10-04] MEDS ORDERED: SODIUM CHLORIDE 0.9% 50 ML IV PRN ×2 (00:36→03:14)
[2024-10-04] MEDS: PANTOPRAZOLE BOLUS/DRIP IV STA (01:00)
[2024-10-04] MEDS: PANTOprazole 40 MG in DEXTROSE 5% MINI-B 100 ML IV SCH (01:04)
--- NOTE | 2024-10-04 01:04 | History & Physical Report ---
Date of Service October 04, 2024 Assessment & Plan (1) Elevated INR: (2) Acute upper gastrointestinal bleeding: (3) Anemia: (4) Hematemesis: Plan Janak Curtis is a 58 year-old male with medical history significant for SBO, sarcoidosis, asthma, CVA, anemia who presented to the ED for hematemesis. Supratherapeutic INR | GI Bleed -INR >9.5 in ED, multiple episodes of hematemesis and hematochezia -CT head without acute abnormalities, CTA A/P showed diffuse subcutaneous edema/anasarca noted. CTA chest notes multiple patchy ground-glass opacities, possibility of pneumonitis. new finding. -Hgb 8.3 on arrival -> 7.5 -> 7.2. Baseline Hgb appears to be 11-13 -Received 10mg Vitamin K in ED, recheck INR @ 4am was 4.1. -Considering his current GI bleed, will order an addition 2.5mg vitamin K and repeat INR in 4 hours -Unfortunately IV access is an issue at present, patient currently has two IV access points but this took efforts over several hours -Due IV access issues, Protonix drip converted to BID IV push. Added octreotide 100mcg. No confirmed history of cirrhosis, but with new anasarca, will order Ceftriaxone IV -Normotensive BP at present, HR 70s. Will order maintenance IV fluids to begin when adequate IV access is established -Blood consent form signed and in paper chart -Repeat H&H q4h, ordered 1u PRBCs due to active GI bleed. Would transfuse additional units for Hgb <7 -GI consulted, appreciate recommendations. Will keep NPO Diabetes Mellitus- q6h BSG checks while NPO, hypoglycemia protocol ordered if needed. BSGs in low 100s so far, will hold on ordering insulin for now Depression- hold home meds while NPO aripiprazole, duloxetine, hydroxyzine, prazosin Sarcoidosis- continue home inhalers CAD- hold aspirin, statin while NPO Admit to: PCU VTE Prophylaxis: contraindicated Diet: NPO Code Status: DNR/DNI History of Present Illness Primary Care Provider: [facility] Janak Curtis is a 58 year-old male with medical history significant for SBO, sarcoidosis, asthma, CVA, anemia who presented to the ED for hematemesis. Patient is a prisoner at [facility], is accompanied by two guards at bedside. EMS reports that patient started vomiting blood at approximately 20:30. Patient endorses multiple episodes of hematemesis and an episode of bright red blood in his stool this evening. Patient has valve replacement and is anti-coagulated on warfarin- reports that he did take his Warfarin this afternoon. Currently patient only notes a headache, but denies chest pain, shortness of breath, dizziness/lightheadedness, or nausea. States that he has coughed up some blood since the vomiting started as well. ED Course: -CTA chest, CT head, CTA A/P, CXR -INR, CBC, type/cross, CMP, UA Allergies Allergy/AdvReac Type Severity Reaction Status Date / Time lisinopril Allergy Severe ANAPHYLAXIS Verified 10/04/24 01:43 ibuprofen Allergy Intermediate HIVES Verified 10/04/24 01:43 morphine Allergy Intermediate HIVES Verified 10/04/24 01:43 capsaicin Allergy Unknown ON [facility] Verified 10/04/24 01:43 [facility] phenytoin Allergy Unknown ON [facility] Verified 10/04/24 01:43 [facility] Oc spray contraindication Allergy Unknown CONTRAINDICATED Uncoded 10/04/24 01:43 PER [facility] Home Medications Medication Instructions Recorded Confirmed Type albuterol sulfate 90 mcg/actuation 2 puff inhalation QID PRN 11/22/23 10/04/24 H istory aerosol inhaler Shortness Of Breath Or Wheezing aspirin 81 mg tablet,delayed 81 mg PO DAILY 11/22/23 10/04/24 History release calcium 600 mg (as 2 tab PO BID 11/22/23 10/04/24 History carbonate)-vitamin D3 10 mcg (400 unit) tablet (Calcium 600 + D(3)) duloxetine 60 mg capsule,delayed 120 mg PO BID 11/22/23 10/04/24 History release insulin glargine 100 unit/mL 10 unit subcut QAM 11/22/23 10/04/24 History subcutaneous solution insulin regular human 100 unit/mL 1 sliding scale dose subcut 11/22/23 10/04/24 History injection solution (Novolin R USEASDIRECTD Regular U-100 Insulin) metoprolol tartrate 25 mg tablet 25 mg PO BID 11/22/23 10/04/24 History pantoprazole 40 mg tablet,delayed 40 mg PO QAM 11/22/23 10/04/24 History release potassium chloride 20 mEq 20 meq PO QAM 11/22/23 10/04/24 History tablet,extended release rosuvastatin 20 mg tablet 20 mg PO QPM 11/22/23 10/04/24 History tamsulosin 0.4 mg capsule 0.4 mg PO HS 11/22/23 10/04/24 History prazosin 2 mg capsule 2 mg PO HS 04/26/24 10/04/24 History aripiprazole 20 mg tablet 20 mg PO HS 10/04/24 10/04/24 History benztropine 2 mg tablet 2 mg PO HS 10/04/24 10/04/24 History ciclesonide 160 mcg/actuation 1 puff inhalation BID 10/04/24 10/04/24 History aerosol inhaler (Alvesco) warfarin 5 mg tablet 5 mg PO WK 10/04/24 10/04/24 History warfarin 7.5 mg tablet 7.5 mg PO 6XWK 10/04/24 10/04/24 History Past Med/Surg History Problem List Anemia (Acute) Acute upper gastrointestinal bleeding (Acute) Supratherapeutic INR (Acute) Hematemesis (Acute) Chest pain (Acute) Syncope and collapse (Acute) Stroke-like symptoms (Acute) Small bowel obstruction Diarrhea Anemia S/P coronary artery stent placement (05/07/13) "2000" Chest pain (Acute) Elevated INR Syncope (Acute) Elevated troponin (Acute) Acute neck pain (Acute) Arthritis (Chronic) Sarcoidosis (Chronic) Hyperlipidemia Asthma (Chronic) History of CVA (cerebrovascular accident) Chest pain due to CAD Abnormal nuclear stress test Atypical chest pain Dizzy Tricuspid regurgitation (Acute) Pulmonary hypertension Elevated troponin BPH w urinary obs/LUTS Hiatal hernia (Acute) S/P cardiac catheterization (Acute) History of repair of hiatal hernia (02/19/22) Laparoscopic Repair of Hiatal Hernia; partial gastric fundoplication; posterior gastropexy(Not Applicable) - Luke De La Fuente, Gout Anemia Falls (Acute) Syncope and collapse (Acute) Medical History Complete heart block Anticoagulated GERD (gastroesophageal reflux disease) Diabetes mellitus Pacemaker Chest pain Transaminitis Pneumothorax Pneumomediastinum Acute myocardial infarction 2020 s/p LAD stent Esophagitis on EGD, [facility], 2020 CAD (coronary artery disease) Constipation Hypomagnesemia Esophagitis Abdominal pain Vertigo BPH (benign prostatic hyperplasia) CAD (coronary artery disease) Syncope Atypical chest pain Hx SBO Angina pectoris Iron deficiency anemia Hypertension Bowel obstruction DM type 2 (diabetes mellitus, type 2) Skin cancer Head injury Depression Peptic ulcer disease Surgical History Tricuspid valve replaced S/P cardiac cath H/O exploratory laparotomy "05/31/2015 with lysis of adhesions, release of bowel obstruction, repair of incisional hernia" H/O ventral hernia repair History of back surgery Family History Mother , age 67 Lung cancer Father , age 68 Lung cancer Brother Stroke age 55 Social History Smoking Status: Former smoker Second Hand Exposure: No; Do You Dip or Chew Tobacco: No; Tobacco Cessation Education Requested by Patient: No Hx Alcohol Use: No Hx Substance Use: No Preferred Language: Slovak Communication Ability: Effective Visual Impairment: No Limitations Clinching Machine Operator Required: No Beliefs That Will Affect Care: None marital status: Single Current Living Situation: Other Current Living Situation Comment: [facility] Other Information That Helps Us Care for You: No Feels Safe at Home: Yes Assistive Devices: None Review of Systems Review of Systems: As per above Physical Exam Constitutional: WD/WN, vitals as above Eyes: Some blood noted at conjunctiva of right eye, no scleral icterus ENMT: Ears: no external ear abnormality Nose: no external nose abnormality Moist mucous membranes Respiratory: normal respiratory effort, lungs clear to auscultation Cardiovascular: Rate/Rhythm: regular rate and regular rhythm Extremities: no edema Gastrointestinal (Abdomen): Inspection/Auscultation: abdomen normal to inspection; abdomen not distended Percussion/Palpation: abdomen soft; abdomen nontender and no guarding Musculoskeletal: Moves limbs independently Skin: no rashes, warm and dry Neurologic: No focal deficits appreciated Psychiatric: A+Ox3, euthymic affect Results & Data Results & Data Vital Signs (Past 12 Hours) Vital Signs Temp Pulse Pulse Resp BP BP Pulse Ox 10/04/24 00:31 71 12 157/89 H 97 10/03/24 22:15 90 18 98 10/03/24 21:48 72 10/03/24 21:42 70 19 148/82 H 90 10/03/24 21:42 37.1 C 71 19 148/82 H 100 O2 Del Method 10/04/24 00:31 Room Air 10/03/24 22:15 Room Air 10/03/24 21:48 10/03/24 21:42 Room Air 10/03/24 21:42 Room Air Diagnostic Findings Abdomen/Pelvis CTA 10/03/24 21:58 EXAM: CT angio abdomen pelvis w con CLINICAL HISTORY: BRBPR, supratherapeutic inr 118 cc''s optiray 320 TECHNIQUE: Contrast enhanced thin slice CT angiography scan of the abdominal aorta was performed with intravenous contrast. Angiographic images were processed, 3D MIP images were acquired for interpretation. Contiguous axial images were obtained. Reformatted coronal and sagittal images were also reviewed. If IV contrast material had not been administered, the likelihood of detecting abnormalities relevant to the patients condition would have been substantially decreased. CT scan was performed according to ALARA (as low as reasonable achievable). COMPARISON: 04/26/2024 18:37:39 MODERN AND CONTEMPORARY ART CURATOR FINDINGS: Abdominal aorta is normal in course, calibre and opacification. Origin of coeliac artery, superior mesenteric artery , bilateral main renal and lumbar arteries are normal with no hemodynamically significant ostial stenosis noted. Bilateral common, external and internal iliac arteries are normal in course, caliber and opacification. Solid abdominal organs including liver, spleen, pancreas and bilateral kidneys reveal no significant abnormality. Bowel loops are grossly unremarkable. No evidence of ascites. Sliding hiatus hernia seen Diffuse subcutaneous edema/anasarca noted. Colon shows fecal and gaseous distension. IMPRESSION: Sliding hiatus hernia seen-same. Diffuse subcutaneous edema/anasarca noted.-new finding. No obvious aortic dissection or aneurysm. Electronically signed by Jhon Colmenares 10-04-2024 02:15 AM Chest X-Ray 10/03/24 21:58 Exam(s): XR CXR 1 VIEW EXAM: XR Chest, 1 View CLINICAL HISTORY: Reason for exam: vomiting. TECHNIQUE: Frontal view of the chest. COMPARISON: No relevant prior studies available. FINDINGS: Lungs: No airspace consolidation. Pleural space: Unremarkable. No pleural effusion or pneumothorax. Heart: Prior sternotomy. No cardiomegaly. Possible atrial appendage clip. No vascular congestion. Bones/joints: No acute findings. Tubes, lines and devices: Left chest wall AICD-pacemaker. Spinal stimulator leads over the mid thoracic level. IMPRESSION: No acute findings in the chest. Electronically signed by: Greg Carr M.D. 10/04/24 00:[address] 10/03/24 21:58 Exam(s): CT HEAD Without Contrast EXAM: CT Head Without Intravenous Contrast CLINICAL HISTORY: Reason for exam: headache; superatherapeutic INR. TECHNIQUE: Axial computed tomography images of the head/brain without intravenous contrast. CTDI is 37.51 mGy and DLP is 624.41 mGy-cm. Automated exposure control was utilized for the study. A dose lowering technique was utilized adhering to the principles of ALARA. COMPARISON: No relevant prior studies available. FINDINGS: Brain: Age-related parenchymal volume loss. Mild chronic small vessel ischemic change. Encarnacion-white matter differentiation maintained. No hemorrhage, mass effect, parenchymal edema, or midline shift. Ventricles: Unremarkable. No hydrocephalus. Bones/joints: Unremarkable. No acute fracture. Soft tissues: Unremarkable. Vasculature: Intracranial atherosclerosis. Sinuses: Unremarkable as visualized. Mastoid air cells: Unremarkable as visualized. No mastoid effusion. IMPRESSION: No acute intracranial process. Electronically signed by: Greg Carr M.D. 10/04/24 00:13 AM Chest CTA 10/03/24 22:04 EXAM: CT angio chest dissec wo/w con CLINICAL HISTORY: hematemesis, supratherapeutic inr 118 cc''s optiray 320 TECHNIQUE: Contiguous axial images were obtained from the neck base through the upper abdomen following intravenous administration of iodinated contrast material. Angiographic images were processed, 3D MIP images were acquired for interpretation. If IV contrast material had not been administered, the likelihood of detecting abnormalities relevant to the patient's condition would have been substantially decreased. Coronal and sagittal 3-D MIPs were likewise performed and indicated to increase the sensitivity of detectin diffuse clinically relevant pathology. CT scan was performed according to ALARA (as low as reasonable achievable). COMPARISON: 05/07/2023 15:17:11 MODERN AND CONTEMPORARY ART CURATOR. FINDINGS: Multiple patchy ground-glass opacities are noted involving apicoposterior segment of left upper lobe and posterior basal segment of bilateral lower lobes Adequate contrast bolus without evidence of pulmonary embolism. The central airways are patent. The rest of lungs are clear. No pleural effusion. The heart, aorta, and pulmonary arteries are of normal size and configuration. There are no appreciable coronary artery and aortic atherosclerotic calcifications. No pericardial effusion is identified. The thyroid is unremarkable. No mediastinal, hilar, or axillary lymphadenopathy is noted. No suspicious lytic or sclerotic osseous lesions are identified. IMPRESSION: Multiple patchy ground-glass opacities are noted involving apicoposterior segment of left upper lobe and posterior basal segment of bilateral lower lobes- possibility of pneumonitis.-new finding. 1. No evidence of pulmonary embolism No obvious aortic dissection or aneurysm. Electronically signed by John Colmenares 10-04-2024 02:11 AM Supervising Physician Co-Signing Physician Notes Attending addendum: I have physically seen this patient, have supervised the medical residents activities, and agree with the H&P unless as otherwise noted. Assessment and Plan: The patient is a 58-year-old male with a past medical history including small bowel obstruction, sarcoidosis, asthma, CVA, anemia the emergency department with complaint of hematemesis and has a supratherapeutic INR greater than 9.5 #Symptomatic anemia with upper GI bleed- Hemoglobin on 07/24/2024 was 13.6, with likely baseline in the 11-11.9 range. Hemoglobin on admission was initially 8.3, with follow-up 7.5, and then repeat 7.2 this evening Changing Protonix bolus/drip to Protonix 40 mg IV twice daily due to limited IV access Placed on octreotide 100 mg IV now, and then twice daily Ceftriaxone 2 g IV daily H&H every 4 hours Continue n.p.o. Consult gastroenterology for possible scope Transfusion PRBCs as noted Supratherapeutic INR- INR greater than 9.5 on admission Holding Coumadin, which she has been on for AVR Given vitamin K 10 mg IV from the ED, with repeat INR at 4.14 at 4 AM Will give an additional 2.5 mg vitamin K now, try to get the INR closer to 2 Diabetes mellitus- Accu-Cheks with NovoLog SSI Check hemoglobin A1c Sarcoidosis- Continue usual home inhalers CAD/hypertension/AVR- Holding warfarin and aspirin Depression- Holding aripiprazole, duloxetine, hydroxyzine and prazosin Remaining orders and notations as noted Resident Activity Tracking Resident Involvement: Resident Care Provided Care Provided: Adult [facility] Medicine
--- NOTE | 2024-10-04 02:12 | CT Scan Report ---
EXAM: CT angio chest dissec wo/w con CLINICAL HISTORY: hematemesis, supratherapeutic inr 118 cc''s optiray 320 TECHNIQUE: Contiguous axial images were obtained from the neck base through the upper abdomen following intravenous administration of iodinated contrast material. Angiographic images were processed, 3D MIP images were acquired for interpretation. If IV contrast material had not been administered, the likelihood of detecting abnormalities relevant to the patient's condition would have been substantially decreased. Coronal and sagittal 3-D MIPs were likewise performed and indicated to increase the sensitivity of detectin diffuse clinically relevant pathology. CT scan was performed according to ALARA (as low as reasonable achievable). COMPARISON: 05/07/2023 15:17:11 NURSE AUDITOR. FINDINGS: Multiple patchy ground-glass opacities are noted involving apicoposterior segment of left upper lobe and posterior basal segment of bilateral lower lobes Adequate contrast bolus without evidence of pulmonary embolism. The central airways are patent. The rest of lungs are clear. No pleural effusion. The heart, aorta, and pulmonary arteries are of normal size and configuration. There are no appreciable coronary artery and aortic atherosclerotic calcifications. No pericardial effusion is identified. The thyroid is unremarkable. No mediastinal, hilar, or axillary lymphadenopathy is noted. No suspicious lytic or sclerotic osseous lesions are identified. IMPRESSION: Multiple patchy ground-glass opacities are noted involving apicoposterior segment of left upper lobe and posterior basal segment of bilateral lower lobes- possibility of pneumonitis.-new finding. 1. No evidence of pulmonary embolism No obvious aortic dissection or aneurysm. Electronically signed by John Clomenares 10-04-2024 02:11 AM
--- NOTE | 2024-10-04 02:16 | CT Scan Report ---
EXAM: CT angio abdomen pelvis w con CLINICAL HISTORY: BRBPR, supratherapeutic inr 118 cc''s optiray 320 TECHNIQUE: Contrast enhanced thin slice CT angiography scan of the abdominal aorta was performed with intravenous contrast. Angiographic images were processed, 3D MIP images were acquired for interpretation. Contiguous axial images were obtained. Reformatted coronal and sagittal images were also reviewed. If IV contrast material had not been administered, the likelihood of detecting abnormalities relevant to the patients condition would have been substantially decreased. CT scan was performed according to ALARA (as low as reasonable achievable). COMPARISON: 04/26/2024 18:37:39 TESTING AND REGULATING TECHNICIAN FINDINGS: Abdominal aorta is normal in course, calibre and opacification. Origin of coeliac artery, superior mesenteric artery , bilateral main renal and lumbar arteries are normal with no hemodynamically significant ostial stenosis noted. Bilateral common, external and internal iliac arteries are normal in course, caliber and opacification. Solid abdominal organs including liver, spleen, pancreas and bilateral kidneys reveal no significant abnormality. Bowel loops are grossly unremarkable. No evidence of ascites. Sliding hiatus hernia seen Diffuse subcutaneous edema/anasarca noted. Colon shows fecal and gaseous distension. IMPRESSION: Sliding hiatus hernia seen-same. Diffuse subcutaneous edema/anasarca noted.-new finding. No obvious aortic dissection or aneurysm. Electronically signed by John Colmenares 10-04-2024 02:15 AM
[2024-10-04] MEDS ORDERED: ONDANSETRON INJ 2 MG/ML 2 ML VIAL IV PRN (03:19)
[2024-10-04] MEDS ORDERED: POLYETHYLENE (MIRALAX) 17 GM PACK PO PRN (03:19)
[2024-10-04] MEDS: OCTREOTIDE ACETATE 100 MCG in SYRINGE 9 ML IV STA (03:20)
[2024-10-04 03:52] LABS: INR 4.1 (0.9-1.1); Prothrombin Time 39.2 Seconds (9.0-12.0)
[2024-10-04 04:32] LABS: Hematocrit (blood only) 22.4 % (42.0-52.0); Hemoglobin 7.2 g/dl (14.0-18.0)
[2024-10-04 04:44] VITALS: TEMP 98.2
[2024-10-04] MEDS ORDERED: DEXTROSE 50% 50 ML SYRINGE IV PRN (05:34)
[2024-10-04] MEDS ORDERED: GLUCAGON FOR INJ 1 MG VIAL SQ PRN (05:34)
[2024-10-04] MEDS ORDERED: GLUCOSE 10 TAB/TUBE PO PRN (05:34)
[2024-10-04] MEDS ORDERED: GLUCOSE 40% GEL 15 GM TUBE PO PRN (05:34)
[2024-10-04] MEDS ORDERED: ALBUTEROL HFA 8 GM INHALER INH PRN (05:41)
[2024-10-04] MEDS: PHYTONADIONE 2.5 MG in DEXTROSE 5% 50 ML IV ONE (05:45)
[2024-10-04] MEDS: SODIUM CHLORIDE 0.9% 1,000 ML IV SCH (06:18)
[2024-10-04] MEDS: cefTRIAXone SODIUM 2,000 MG/50 ML BAG IV STA (06:18)
[2024-10-04 09:15] LABS: Hemoglobin 8.3 g/dl (14.0-18.0)
[2024-10-04 09:34] LABS: Albumin Globulin Ratio 1.5 (0.9-2); Albumin Level 3.5 gm/dl (3.4-5.0); BUN Creatinine Ratio 11.8 (10-20); Bilirubin,Total 1.1 mg/dl (0.2-1.0); Calcium 8.5 mg/dl (8.6-10.3); Creatinine Clr Calc Pharmacy 84.5 ml/min; Globulin 2.3 gm/dl (2.5-4.0); Potassium 4.6 mmol/L (3.5-5.1); Total Protein 5.8 gm/dl (6.0-8.3)
[2024-10-04] MEDS: PANTOprazole 40 MG/10 ML SYR IV SCH (09:44)
[2024-10-04 09:46] LABS: INR 2.1 (0.9-1.1); Prothrombin Time 21.5 Seconds (9.0-12.0)
[2024-10-04] MEDS: FLUTICASONE FUROATE 200MCG 14 PUFFS/INHALER INH SCH (10:58)
--- NOTE | 2024-10-04 11:20 | Gastrointestinal Consultation ---
Date of Consultation October 04, 2024 Assessment & Plan (1) Anemia: I am completely confused with his history as to what is going on. It is obvious that there is some bleeding from somewhere and it could be that the bleeding was related to his iatrogenic coagulopathy. For now I would like to see how he does now that the coagulopathy has resolved so we can sort out where the bleeding came from. We know there is nothing like a malignancy in his UGI tract as he was endoscoped in 2021. I discussed with the nurses and they are just as confused because he tells them something different each time they go in. History of Present Illness Reason for Consultation: hematemesis Attending Physician: Willy Mace MD History of Present Illness 58 year old inmate on chronic warfarin treatment for valve replacement brought in with "hematemesis". Patient gives a confusing history where he says he is "coughing up blood". He says he woke up covered with blood but then he says he vomited blood. He says he has been bleeding for two weeks "from his mouth and when he coughs". He says he vomited blood two days ago but they "never took him to medical". He says last night he was at his house with friends and they were smoking weed. Then he says he was in his cell. He has had no rectal bleeding (he says) for a couple of days now. INR on admit was over 9. He had an EGD two years ago that led to reduction and repair of large hiatal hernia. He says he has had a colonoscopy in the last couple of years as well. Allergies Allergy/AdvReac Type Severity Reaction Status Date / Time lisinopril Allergy Severe ANAPHYLAXIS Verified 10/04/24 01:43 ibuprofen Allergy Intermediate HIVES Verified 10/04/24 01:43 morphine Allergy Intermediate HIVES Verified 10/04/24 01:43 capsaicin Allergy Unknown ON SCI Verified 10/04/24 01:43 [facility] MED LIST phenytoin Allergy Unknown ON SCI Verified 10/04/24 01:43 [facility] MED LIST Oc spray contraindication Allergy Unknown CONTRAINDICATED Uncoded 10/04/24 01:43 PER SCI [facility] Home Medications Medication Instructions Recorded Confirmed Type albuterol sulfate 90 mcg/actuation 2 puff inhalation QID PRN 11/22/23 10/04/24 History aerosol inhaler Shortness Of Breath Or Wheezing aspirin 81 mg tablet,delayed 81 mg PO DAILY 11/22/23 10/04/24 History release calcium 600 mg (as 2 tab PO BID 11/22/23 10/04/24 History carbonate)-vitamin D3 10 mcg (400 unit) tablet (Calcium 600 + D(3)) duloxetine 60 mg capsule,delayed 120 mg PO BID 11/22/23 10/04/24 History release insulin glargine 100 unit/mL 10 unit subcut QAM 11/22/23 10/04/24 History subcutaneous solution insulin regular human 100 unit/mL 1 sliding scale dose subcut 11/22/23 10/04/24 History injection solution (Novolin R USEASDIRECTD Regular U-100 Insulin) metoprolol tartrate 25 mg tablet 25 mg PO BID 11/22/23 10/04/24 History pantoprazole 40 mg tablet,delayed 40 mg PO QAM 11/22/23 10/04/24 History release potassium chloride 20 mEq 20 meq PO QAM 11/22/23 10/04/24 History tablet,extended release rosuvastatin 20 mg tablet 20 mg PO QPM 11/22/23 10/04/24 History tamsulosin 0.4 mg capsule 0.4 mg PO HS 11/22/23 10/04/24 History prazosin 2 mg capsule 2 mg PO HS 04/26/24 10/04/24 History aripiprazole 20 mg tablet 20 mg PO HS 10/04/24 10/04/24 History benztropine 2 mg tablet 2 mg PO HS 10/04/24 10/04/24 History ciclesonide 160 mcg/actuation 1 puff inhalation BID 10/04/24 10/04/24 History aerosol inhaler (Alvesco) warfarin 5 mg tablet 5 mg PO WK 10/04/24 10/04/24 History warfarin 7.5 mg tablet 7.5 mg PO [id number] 10/04/24 10/04/24 History Patient History Medical History Complete heart block Anticoagulated GERD (gastroesophageal reflux disease) Diabetes mellitus Pacemaker Chest pain Transaminitis Pneumothorax Pneumomediastinum Acute myocardial infarction 2020 s/p LAD stent Esophagitis on EGD, [facility], 2020 CAD (coronary artery disease) Constipation Hypomagnesemia Esophagitis Abdominal pain Vertigo BPH (benign prostatic hyperplasia) CAD (coronary artery disease) Syncope Atypical chest pain Hx SBO Angina pectoris Iron deficiency anemia Hypertension Bowel obstruction DM type 2 (diabetes mellitus, type 2) Skin cancer Head injury Depression Peptic ulcer disease Surgical History Tricuspid valve replaced S/P cardiac cath H/O exploratory laparotomy "05/31/2015 with lysis of adhesions, release of bowel obstruction, repair of incisional hernia" H/O ventral hernia repair History of back surgery Family History Mother , age 67 Lung cancer Father , age 68 Lung cancer Brother Stroke age 55 Social History Smoking Status: Former smoker Second Hand Exposure: No; Do You Dip or Chew Tobacco: No; Tobacco Cessation Education Requested by Patient: No Hx Alcohol Use: No Hx Substance Use: No Preferred Language: Korean Communication Ability: Effective Visual Impairment: No Limitations Planner Intern Required: No Beliefs That Will Affect Care: None marital status: Single Current Living Situation: Other Current Living Situation Comment: [facility] Other Information That Helps Us Care for You: No Feels Safe at Home: Yes Assistive Devices: None Review of Systems Review of Systems: Unobtainable due to cognitive status Physical Exam Constitutional: WD/WN, vitals as above Neck: trachea midline, no thyromegaly Respiratory: normal respiratory effort, lungs clear to auscultation Cardiovascular: RRR, no murmur, no edema Gastrointestinal (Abdomen): normal bowel sounds, soft, nontender, no hepatosplenomegaly Results & Data Vital Signs (Past 12 Hours) Vital Signs Temp Pulse Pulse Resp BP BP Pulse Ox 10/04/24 10:09 71 14 113/89 99 10/04/24 08:00 70 141/96 H 94 10/04/24 07:02 70 10/04/24 07:00 71 16 139/88 99 10/04/24 06:23 36.8 C 81 17 151/95 H 97 10/04/24 05:25 36.8 C 72 17 147/90 H 96 10/04/24 04:55 70 17 118/78 95 10/04/24 04:40 36.8 C 73 17 129/86 96 10/04/24 04:25 36.9 C 70 17 132/84 97 10/04/24 02:00 70 21 131/83 96 10/04/24 01:46 70 10/04/24 00:31 71 12 157/89 H 97 O2 Del Method 10/04/24 10:09 Room Air 10/04/24 08:00 Room Air 10/04/24 07:02 10/04/24 07:00 Room Air 10/04/24 06:23 10/04/24 05:25 10/04/24 04:55 10/04/24 04:40 10/04/24 04:25 10/04/24 02:00 Room Air 10/04/24 01:46 10/04/24 00:31 Room Air Laboratory Results 10/04/24 10/04/24 10/04/24 Range/Units 08:49 04:24 03:00 WBC (4.8-10.8) K/ul RBC (4.70-6.10) M/uL Hgb 8.3 L 7.2 L (14.0-18.0) g/dl POC Hgb (14.0-18.0) g/dl Hct 26.0 L 22.4 L (42.0-52.0) % POC Hct (42-52) % MCV (80.0-100.0) fL MCH (25.0-34.0) pg MCHC (32.0-36.0) g/dL RDW Std Deviation (36.4-46.3) fL RDW Coeff of Eliana (11.5-14.5) % Plt Count (130-400) K/uL MPV (9.4-12.4) fL Immature Gran % (Auto) % Neut % (Auto) % Lymph % (Auto) % [place] % (Auto) % Eos % (Auto) % Baso % (Auto) % Neut # (Auto) (1.40-6.50) K/uL Lymph # (Auto) (1.20-3.40) K/uL [place] # (Auto) (0.11-0.59) K/uL Eos # (Auto) (0.00-0.50) K/uL Baso # (Auto) (0.00-0.20) K/uL Immature Gran # (Auto) (0.01-0.20) K/uL PT 21.5 H 39.2 H (9.0-12.0) Seconds INR 2.1 H 4.1 H (0.9-1.1) APTT (21-31) Seconds PTT Ratio POC Sodium (135-144) mmol/L Sodium 138 (136-145) mmol/L POC Potassium (3.3-5.0) mmol/L Potassium 4.6 (3.5-5.1) mmol/L POC Chloride (101-112) mmol/L Chloride 103 (98-107) mmol/L Carbon Dioxide 32 (21-32) mmol/L POC Total CO2 (24-31) mmol/L Anion Gap 3 (3-11) POC Anion Gap (16-25) mmol/L POC BUN (7-18) mg/dl BUN 11 (6-23) mg/dl Creatinine 0.93 (0.6-1.4) mg/dl POC Creatinine (0.6-1.3) mg/dl Est Cr Clr Drug Dosing 84.5 ml/min eGFR 94.00 BUN/Creatinine Ratio 11.8 (10-20) Glucose 79 (70-99(Fasting)) mg/dl POC Glucose (other) (70-99) mg/dl Lactate (0.4-2.0) mmol/L Calcium 8.5 L (8.6-10.3) mg/dl POC Ioniz Calcium Nury (1.12-1.32) mmol/l Total Bilirubin 1.1 H D (0.2-1.0) mg/dl AST 22 (13-39) U/L ALT 21 (7-52) U/L Alkaline Phosphatase 99 (34-104) U/L Troponin I High Sens (0-20) pg/ml Total Protein 5.8 L (6.0-8.3) gm/dl Albumin 3.5 (3.4-5.0) gm/dl Globulin 2.3 L (2.5-4.0) gm/dl Albumin/Globulin Ratio 1.5 (0.9-2) Lipase (11-82) U/L Urine Color Urine Appearance (Clear) Urine pH (4.5-7.5) Ur Specific [place] (1.000-1.030) Urine Protein (Negative) Urine Glucose (UA) (Negative) Urine Ketones (Negative) Urine Blood (Negative) Urine Nitrite (Negative) Urine Bilirubin (Negative) Urine Urobilinogen (Negative) Ur Leukocyte Esterase (Negative) Adenovirus (PCR) (NotDetected) B. pertussis DNA (PCR) (NotDetected) B.parapertussis DNA PCR (NotDetected) C. pneumoniae DNA (PCR) (NotDetected) Coronavirus OC43 (PCR) (NotDetected) Coronavirus HKU1 (PCR) (NotDetected) Coronavirus 229E (PCR) (NotDetected) SARS-CoV-2 (PCR) (NotDetected) Coronavirus NL63 (PCR) (NotDetected) Human Metapneumovir PCR (NotDetected) Influenza Type A (PCR) (NotDetected) Influenza Type B (PCR) (NotDetected) M. pneumoniae (PCR) (NotDetected) Parainfluenza 1 (PCR) (NotDetected) Parainfluenza 2 (PCR) (NotDetected) Parainfluenza 3 (PCR) (NotDetected) Parainfluenza 4 (PCR) (NotDetected) RSV (PCR) (NotDetected) Entero/Rhino (PCR) (NotDetected) Blood Type Antibody Screen Crossmatch 10/03/24 10/03/24 10/03/24 Range/Units 23:58 23:15 22:17 WBC (4.8-10.8) K/ul RBC (4.70-6.10) M/uL Hgb 7.5 L (14.0-18.0) g/dl POC Hgb (14.0-18.0) g/dl Hct 23.7 L (42.0-52.0) % POC Hct (42-52) % MCV (80.0-100.0) fL MCH (25.0-34.0) pg MCHC (32.0-36.0) g/dL RDW Std Deviation (36.4-46.3) fL RDW Coeff of Eliana (11.5-14.5) % Plt Count (130-400) K/uL MPV (9.4-12.4) fL Immature Gran % (Auto) % Neut % (Auto) % Lymph % (Auto) % [place] % (Auto) % Eos % (Auto) % Baso % (Auto) % Neut # (Auto) (1.40-6.50) K/uL Lymph # (Auto) (1.20-3.40) K/uL [place] # (Auto) (0.11-0.59) K/uL Eos # (Auto) (0.00-0.50) K/uL Baso # (Auto) (0.00-0.20) K/uL Immature Gran # (Auto) (0.01-0.20) K/uL PT (9.0-12.0) Seconds INR (0.9-1.1) APTT (21-31) Seconds PTT Ratio POC Sodium (135-144) mmol/L Sodium (136-145) mmol/L POC Potassium (3.3-5.0) mmol/L Potassium (3.5-5.1) mmol/L POC Chloride (101-112) mmol/L Chloride (98-107) mmol/L Carbon Dioxide (21-32) mmol/L POC Total CO2 (24-31) mmol/L Anion Gap (3-11) POC Anion Gap (16-25) mmol/L POC BUN (7-18) mg/dl BUN (6-23) mg/dl Creatinine (0.6-1.4) mg/dl POC Creatinine (0.6-1.3) mg/dl Est Cr Clr Drug Dosing ml/min eGFR BUN/Creatinine Ratio (10-20) Glucose (70-99(Fasting)) mg/dl POC Glucose (other) (70-99) mg/dl Lactate 0.8 (0.4-2.0) mmol/L Calcium (8.6-10.3) mg/dl POC Ioniz Calcium [place]ury (1.12-1.32) mmol/l Total Bilirubin (0.2-1.0) mg/dl AST (13-39) U/L ALT (7-52) U/L Alkaline Phosphatase (34-104) U/L Troponin I High Sens (0-20) pg/ml Total Protein (6.0-8.3) gm/dl Albumin (3.4-5.0) gm/dl Globulin (2.5-4.0) gm/dl Albumin/Globulin Ratio (0.9-2) Lipase (11-82) U/L Urine Color Yellow Urine Appearance Clear (Clear) Urine pH 8.0 H (4.5-7.5) Ur Specific [place] 1.019 (1.000-1.030) Urine Protein Negative (Negative) Urine Glucose (UA) Negative (Negative) Urine Ketones Negative (Negative) Urine Blood Negative (Negative) Urine Nitrite Negative (Negative) Urine Bilirubin Negative (Negative) Urine Urobilinogen Negative (Negative) Ur Leukocyte Esterase Negative (Negative) Adenovirus (PCR) Not Detected (NotDetected) B. pertussis DNA (PCR) Not Detected (NotDetected) B.parapertussis DNA PCR Not Detected (NotDetected) C. pneumoniae DNA (PCR) Not Detected (NotDetected) Coronavirus OC43 (PCR) Not Detected (NotDetected) Coronavirus HKU1 (PCR) Not Detected (NotDetected) Coronavirus 229E (PCR) Not Detected (NotDetected) SARS-CoV-2 (PCR) Not Detected (NotDetected) Coronavirus NL63 (PCR) Not Detected (NotDetected) Human Metapneumovir PCR Not Detected (NotDetected) Influenza Type A (PCR) Not Detected (NotDetected) Influenza Type B (PCR) Not Detected (NotDetected) M. pneumoniae (PCR) Not Detected (NotDetected) Parainfluenza 1 (PCR) Not Detected (NotDetected) Parainfluenza 2 (PCR) Not Detected (NotDetected) Parainfluenza 3 (PCR) Not Detected (NotDetected) Parainfluenza 4 (PCR) Not Detected (NotDetected) RSV (PCR) Not Detected (NotDetected) Entero/Rhino (PCR) Not Detected (NotDetected) Blood Type Antibody Screen Crossmatch 10/03/24 10/03/24 Range/Units 22:05 21:58 WBC 5.11 (4.8-10.8) K/ul RBC 2.98 L (4.70-6.10) M/uL Hgb 8.3 L (14.0-18.0) g/dl POC Hgb 9.5 L (14.0-18.0) g/dl Hct 26.2 L (42.0-52.0) % POC Hct 28 L (42-52) % MCV 87.9 (80.0-100.0) fL MCH 27.9 (25.0-34.0) pg MCHC 31.7 L (32.0-36.0) g/dL RDW Std Deviation 53.1 H (36.4-46.3) fL RDW Coeff of Eliana 16.6 H (11.5-14.5) % Plt Count 193 (130-400) K/uL MPV 9.0 L (9.4-12.4) fL Immature Gran % (Auto) 0.2 % Neut % (Auto) 70.9 % Lymph % (Auto) 16.2 % [place] % (Auto) 9.6 % Eos % (Auto) 2.5 % Baso % (Auto) 0.6 % Neut # (Auto) 3.62 (1.40-6.50) K/uL Lymph # (Auto) 0.83 L (1.20-3.40) K/uL [place] # (Auto) 0.49 (0.11-0.59) K/uL Eos # (Auto) 0.13 (0.00-0.50) K/uL Baso # (Auto) 0.03 (0.00-0.20) K/uL Immature Gran # (Auto) 0.01 (0.01-0.20) K/uL PT > 90.0 H (9.0-12.0) Seconds INR > 9.5 H* (0.9-1.1) APTT 98 H* (21-31) Seconds PTT Ratio 3.6 POC Sodium 139 (135-144) mmol/L Sodium 140 (136-145) mmol/L POC Potassium 5.0 (3.3-5.0) mmol/L Potassium 4.2 (3.5-5.1) mmol/L POC Chloride 102 (101-112) mmol/L Chloride 104 (98-107) mmol/L Carbon Dioxide 31 (21-32) mmol/L POC Total CO2 31 (24-31) mmol/L Anion Gap 5 (3-11) POC Anion Gap 12.0 L (16-25) mmol/L POC BUN 17 (7-18) mg/dl BUN 14 (6-23) mg/dl Creatinine 1.02 (0.6-1.4) mg/dl POC Creatinine 1.1 (0.6-1.3) mg/dl Est Cr Clr Drug Dosing 77.0 ml/min eGFR 84.14 BUN/Creatinine Ratio 13.7 (10-20) Glucose 118 H (70-99(Fasting)) mg/dl POC Glucose (other) 118 H (70-99) mg/dl Lactate (0.4-2.0) mmol/L Calcium 9.5 (8.6-10.3) mg/dl POC Ioniz Calcium [place] 1.21 (1.12-1.32) mmol/l Total Bilirubin 0.7 (0.2-1.0) mg/dl AST 32 (13-39) U/L ALT 28 (7-52) U/L Alkaline Phosphatase 118 H (34-104) U/L Troponin I High Sens 10.8 (0-20) pg/ml Total Protein 6.8 (6.0-8.3) gm/dl Albumin 4.0 (3.4-5.0) gm/dl Globulin 2.8 (2.5-4.0) gm/dl Albumin/Globulin Ratio 1.4 (0.9-2) Lipase 8 L (11-82) U/L Urine Color Urine Appearance (Clear) Urine pH (4.5-7.5) Ur Specific [place] (1.000-1.030) Urine Protein (Negative) Urine Glucose (UA) (Negative) Urine Ketones (Negative) Urine Blood (Negative) Urine Nitrite (Negative) Urine Bilirubin (Negative) Urine Urobilinogen (Negative) Ur Leukocyte Esterase (Negative) Adenovirus (PCR) (NotDetected) B. pertussis DNA (PCR) (NotDetected) B.parapertussis DNA PCR (NotDetected) C. pneumoniae DNA (PCR) (NotDetected) Coronavirus OC43 (PCR) (NotDetected) Coronavirus HKU1 (PCR) (NotDetected) Coronavirus 229E (PCR) (NotDetected) SARS-CoV-2 (PCR) (NotDetected) Coronavirus NL63 (PCR) (NotDetected) Human Metapneumovir PCR (NotDetected) Influenza Type A (PCR) (NotDetected) Influenza Type B (PCR) (NotDetected) M. pneumoniae (PCR) (NotDetected) Parainfluenza 1 (PCR) (NotDetected) Parainfluenza 2 (PCR) (NotDetected) Parainfluenza 3 (PCR) (NotDetected) Parainfluenza 4 (PCR) (NotDetected) RSV (PCR) (NotDetected) Entero/Rhino (PCR) (NotDetected) Blood Type O Positive Antibody Screen NEGATIVE Crossmatch See Detail
[2024-10-04 13:34] LABS: Hematocrit (blood only) 25.9 % (42.0-52.0); Hemoglobin 8.2 g/dl (14.0-18.0)
--- NOTE | 2024-10-04 14:53 | Hospitalist Progress Note ---
"Date of Service October 04, 2024 Assessment & Plan (1) Supratherapeutic INR: Plan Janak Curtis is a 58 year-old male with medical history significant for SBO, sarcoidosis, asthma, CVA, anemia who presented to the ED for hematemesis. #Supratherapeutic INR | GI Bleed -INR >9.5 in ED. Reversed with 12.5 Vit K. Recheck AM 2.1 -CT head without acute abnormalities, CTA A/P showed diffuse subcutaneous edema/anasarca noted. CTA chest notes multiple patchy ground-glass opacities, possibility of pneumonitis. new finding. -Hgb 8.3 on arrival -> 7.2. Baseline Hgb appears to be 11-13 -Continue Protonix BID IV push. Added octreotide 100mcg. No confirmed history of cirrhosis, but with new anasarca, will order Ceftriaxone IV -NPO, conitnue IVF -GI consulted, appreciate recommendations - unclear pt history, no active bleeding, continue current plan and re-eval tomorrow 10/04: called and spoke to RN at [facility] - states [facility] is in a unit where his meds are delivered. When RN went to deliver meds on 10/03, noticed bleeding coming from his gums/mouth and over his eye. At that point, he stated that he had been bleeding in the mouth x 1.5 weeks, and also coughing up blood tinged phelgm. Reported blood in stool 10/03 in prision. RN states his coumadin dose was 4mg daily until 08/10 which then it was increased to 7.5mg daily (unclear why). INR beginning of september was 5.0, so coumadin held until 09/13, was supposed to have redraw but not done. Restarted on 7.5mg daily, except mondays 5mg on 09/13. INR at detention 10/03 reading >8. Diabetes Mellitus- q6h BSG checks while NPO, hypoglycemia protocol ordered if needed. BSGs in low 100s so far, will hold on ordering insulin for now Depression- hold home meds while NPO aripiprazole, duloxetine, hydroxyzine, prazosin Sarcoidosis- continue home inhalers CAD- hold aspirin, statin while NPO Dispo: continued inpatient stay DVT proh: chemical contraindicated Admission and Anticipated Discharge Date Admission Date: October 04, 2024 Supervising Physician Co-Signing Physician Notes Attending Attestation - Chart reviewed, care plan d/w SALVADOR Hadley. I agree w/ the mendez components of her documentation. Patient presented with upper GI bleeding vs pulmonary based bleeding (ie hemoptysis). INR supratherapeutic on chronic coumadin. Reason for coumadin ?? Also with elevated PTT - cause?? Coumadin reversed with vit K. INR improved. Plan repeat INR & PTT in am. Appreciate GI assistance. Of note - platelets remain normal thus DIC, TTP, etc all unlikely. Willy Mace MD Subjective patient evaluated while lying in bed in the ER. denies pain currently or episodes of bleeding today states he woke up in detention and was just covered in blood. He does not know if he vomited. He does report black stools, but reports last stool was yesterday and that was not black. Review of Systems Review of Systems: All systems reviewed & are unremarkable except as noted in Subjective Physical Exam Physical Exam: General: NAD, VS as above HEENT: no active areas of bleeding in the mouth, but 3 spots that looks like they have been bleeding previously. No evidence of bleeding in the nose. Resp: normal respiratory effort, lungs clear to auscultation CV: RRR, no murmur, Abd: normal bowel sounds, non tender, no hepatosplenomegaly Extremities: Moves all extremities, no edema Neuro: A&O x3, Skin: intact, no lesions noted Results & Data Results & Data Vital Signs (Past 12 Hours) Vital Signs Temp Pulse Pulse Resp BP BP Pulse Ox 10/04/24 14:29 88 16 156/99 H 99 10/04/24 13:00 74 18 155/98 H 95 10/04/24 12:00 70 18 149/96 H 94 10/04/24 11:01 73 20 147/94 H 95 10/04/24 10:09 71 14 113/89 99 10/04/24 08:00 70 141/96 H 94 10/04/24 07:02 70 10/04/24 07:00 71 16 139/88 99 10/04/24 06:23 98.2 F 81 17 151/95 H 97 10/04/24 05:25 98.2 F 72 17 147/90 H 96 10/04/24 04:55 70 17 118/78 95 10/04/24 04:40 98.2 F 73 17 129/86 96 10/04/24 04:25 98.4 F 70 17 132/84 97 O2 Del Method 10/04/24 14:29 Room Air 10/04/24 13:00 Room Air 10/04/24 12:00 Room Air 10/04/24 11:01 Room Air 10/04/24 10:09 Room Air 10/04/24 08:00 Room Air 10/04/24 07:02 10/04/24 07:00 Room Air 10/04/24 06:23 10/04/24 05:25 10/04/24 04:55 10/04/24 04:40 10/04/24 04:25 Laboratory Results ccb chemistry reveiwed inr reviewed PG Care Time/CCT Total # of Minutes Spent Total Time Spent with Patient: Total time spent is greater than 50% in coordination of care (as documented) at patient's floor/unit and/or counseling patient: Coding Level of Care Code None Diagnoses Supratherapeutic INR R79.1"
[2024-10-04 16:38] LABS: Hematocrit (blood only) 26.7 % (42.0-52.0); Hemoglobin 8.4 g/dl (14.0-18.0)
[2024-10-04] MEDS: CARBOHYDRATES FOR HYPOGLYCEMIA PO PRN (20:49)
--- NOTE | 2024-10-04 22:49 | Electrocardiogram Report ---
Test Reason : Blood Pressure : */* mmHG Vent. Rate : 78 BPM Atrial Rate : 53 BPM P-R Int : * ms QRS Dur : 134 ms QT Int : 414 ms P-R-T Axes : 82 104 64 degrees QTcB Int : 471 ms Ventricular-paced rhythm Abnormal ECG When compared with ECG of 24-Jul-2024 17:03, Vent. rate has increased by 6 bpm Confirmed by Tomás Alicia ([id number]) on 10/04/2024 10:49:39 PM Referred By: [facility] Confirmed By: Tomás Alicia
--- NOTE | 2024-10-05 03:18 | Billing Data ---
Date of Service October 05, 2024 Coding Level of Care Code 38692 INT INP/OBS CARE
[2024-10-05 05:07] VITALS: PULSE 70
[2024-10-05 08:49] LABS: Hematocrit (blood only) 25.6 % (42.0-52.0); Hemoglobin 8.3 g/dl (14.0-18.0); Mean Corpuscular Hemoglobin 27.5 pg (25.0-34.0); Mean Corpuscular Hgb Conc 32.4 g/dL (32.0-36.0); Mean Corpuscular Volume 84.8 fL (80.0-100.0); Platelet Count 170 K/uL (130-400); RDW Coefficient of Variation 16.1 % (11.5-14.5); RDW Standard Deviation 49.9 fL (36.4-46.3); Red Blood Count 3.02 M/uL (4.70-6.10); White Blood Count 3.42 K/ul (4.8-10.8)
[2024-10-05 09:01] LABS: BUN Creatinine Ratio 13.2 (10-20); Calcium 8.7 mg/dl (8.6-10.3); Creatinine Clr Calc Pharmacy 86.3 ml/min
[2024-10-05 09:11] LABS: INR 1.7 (0.9-1.1); Partial Thromboplastin Ratio 1.4; Partial Thromboplastin Time 39 Seconds (21-31); Prothrombin Time 17.2 Seconds (9.0-12.0)
[2024-10-05] MEDS: ACETAMINOPHEN 1,000 MG/100 ML VIAL IV PRN (09:36)
[2024-10-05 12:25] VITALS: O2SAT 100
--- NOTE | 2024-10-05 14:19 | Discharge Summary ---
"Discharge Summary Date of Service October 05, 2024 Principal Dx & Hospital Course #1 = Principal Diagnosis (1) Elevated INR: (2) Anemia: (3) Hematemesis: Plan Janak Curtis is a 58 year-old male with medical history significant for SBO, sarcoidosis, asthma, CVA, anemia who presented to the ED for hematemesis. Supratherapeutic INR | GI Bleed Hemorrhagic disorder d/t extrinsic circulating anticoagulants -INR >9.5 in ED. Reversed with 12.5 Vit K. Recheck AM 2.1 -CT head without acute abnormalities, CTA A/P showed diffuse subcutaneous edema/anasarca noted. CTA chest notes multiple patchy ground-glass opacities, possibility of pneumonitis. new finding. -Hgb drop to 7.2, received 1unit PRBCs and hgb has remained stable -GI consulted, no definitive GI bleeding, no plans for scope. Given that patient's Coumadin dosing has been nearly doubled in the last month and supratherapeutic INR without obvious signs of GI bleeding once the MRI has been reviewed his bleeding was most likely due to the elevated INR levels and not a GI source. Coumadin dose decreased to 5 mg daily on discharge. Recommend weekly INRs to ensure stability for a couple of weeks. recommend if dose does need to be adjusted only increasing or decreasing by 10 to 15% of total weekly dose. Do have concerns for ongoing chronic liver problemspatient has a chronically elevated PTT also concerns for anasarca on CT scan but no cirrhosis noted. Recommend continued outpatient workup. Diabetes Mellitus- Continue home regimen Depression- continue aripiprazole, duloxetine, hydroxyzine, prazosin Sarcoidosis- continue home inhalers CAD- Continue aspirin and statin Dispo: return back to [facility] staff updated by phone Admission HPI Per Admitting Provider Janak Crutis is a 58 year-old male with medical history significant for SBO, sarcoidosis, asthma, CVA, anemia who presented to the ED for hematemesis. Patient is a prisoner at [facility], is accompanied by two guards at bedside. EMS reports that patient started vomiting blood at approximately 20:30. Patient endorses multiple episodes of hematemesis and an episode of bright red blood in his stool this evening. Patient has valve replacement and is anti-coagulated on warfarin- reports that he did take his Warfarin this afternoon. Currently patient only notes a headache, but denies chest pain, shortness of breath, dizziness/lightheadedness, or nausea. States that he has coughed up some blood since the vomiting started as well. ED Course: -CTA chest, CT head, CTA A/P, CXR -INR, CBC, type/cross, CMP, UA Discharge Exam General: NAD, VS as above HEENT: no active areas of bleeding in the mouth, No evidence of bleeding in the nose. Resp: normal respiratory effort, lungs clear to auscultation CV: RRR, no murmur, Abd: normal bowel sounds, non tender, no hepatosplenomegaly Extremities: Moves all extremities, no edema Neuro: A&O x3, Skin: intact, no lesions noted Discharge Plan Discharge Items Patient Disposition: [facility] Reason For Visit: SUPRATHERAPEUTIC INR, GI BLEED Discharge Diagnosis: Supratherapetuic INR Activity: Resume your previous activity Non-emergency contact: Primary Care Provider Call non-emergency contact if: you have any medication questions and your symptoms worsen Follow-up/Referrals: Shasta PEREIRA [Primary Care Provider] - Diet: Carb Consistent or DM2 Addtl Attending Provider Instructions: You were hospitalized after having an elevated INR - this is likely because you are taking too much coumadin. We have decreased your dose to 5mg daily. Please check INRs weekly to make sure this is an appropriate dosing. would recommend increase or decreasing by 10-20% of weekly total dose if needing adjustments. Seen by GI - no indication for scope at this time as there was no rebleeding after reversal of coumadin. Concern for underlying chronic liver problems - anasarca and chronically elevated PTT. Chirrosis not seen on imaging. Recommend continued outpatient workup. Pending Studies at Discharge: No Stand-Alone Forms: My [facility] Skilled Items Patient informed of condition?: Yes Discharge Level of Care: Other Communicable Disease: No Discharge Prognosis: Improving Lines: None Urinary Catheter: No Medications and DC Order Prescriptions: Continued insulin glargine 100 unit/mL Solution 10 unit SUBCUT QAM aspirin 81 mg Tablet,Delayed Release (Dr/Ec) 81 mg PO DAILY tamsulosin 0.4 mg Capsule 0.4 mg PO HS pantoprazole 40 mg Tablet,Delayed Release (Dr/Ec) 40 mg PO QAM Novolin R Regular U100 Insulin 100 unit/mL Solution 1 sliding scale dose SUBCUT USEASDIRECTD Rx Instructions: PG000-210= 2 UNITS, 251-300=4UNITS, 301-350=6 UNITS, 351-400=8UNITS, 401- 450=10 UNITS, 541-500=12 UNITS, . 500 call albuterol sulfate 90 mcg/actuation Hfa Aerosol Inhaler 2 puff INHALATION QID PRN (Reason: Shortness Of Breath Or Wheezing) rosuvastatin 20 mg Tablet 20 mg PO QPM metoprolol tartrate 25 mg Tablet 25 mg PO BID Rx Instructions: Hold for heart rate of 60 & below, sbp of 100 or below duloxetine 60 mg Capsule,Delayed Release(Dr/Ec) 120 mg PO BID Rx Instructions: TAKE TWO CAPSULES AT BEDTIME calcium carbonate-vitamin D3 [Calcium 600 + D(3)] 600 mg-10 mcg (400 unit) Tablet 2 tab PO BID potassium chloride 20 mEq Tablet Extended Release 20 meq PO QAM prazosin 2 mg Capsule 2 mg PO HS aripiprazole 20 mg Tablet 20 mg PO HS benztropine 2 mg Tablet 2 mg PO HS Alvesco 160 mcg/actuation Hfa Aerosol Inhaler 1 puff INHALATION BID Changed warfarin 5 mg Tablet 5 mg PO DAILY Qty: 0 0RF Rx Instructions: TAKE 5MG EVERY WEDNESDAY Discontinued warfarin 7.5 mg Tablet 7.5 mg PO 6XWK Rx Instructions: TAKE 7.5 MG EVERY WEDNESDAY/WEDNESDAY/WEDNESDAY/ WEDNESDAY/WEDNESDAY/WEDNESDAY. Discharge Orders: Discharge Order (Routine); Ordered 10/05/24 Ordered By: Miguelina Hadley Admission Data Admit Date/Time: 10/04/24 02:29 Attending Provider: Willy Mace Admit Provider: Chante Gill [facility] Other Providers: Emile Tomlinson; Georgi Davis Jr Hospital Stay Data Consultations 10/04/24 00:37 ED Decision to Admit Stat 10/04/24 03:19 Consult Gastroenterology Routine Diagnostic Imagining Performed Abdomen/Pelvis CTA 10/03/24 21:58 EXAM: CT angio abdomen pelvis w con CLINICAL HISTORY: BRBPR, supratherapeutic inr 118 cc''s optiray 320 TECHNIQUE: Contrast enhanced thin slice CT angiography scan of the abdominal aorta was performed with intravenous contrast. Angiographic images were processed, 3D MIP images were acquired for interpretation. Contiguous axial images were obtained. Reformatted coronal and sagittal images were also reviewed. If IV contrast material had not been administered, the likelihood of detecting abnormalities relevant to the patients condition would have been substantially decreased. CT scan was performed according to ALARA (as low as reasonable achievable). COMPARISON: 04/26/2024 18:37:39 [facility] FINDINGS: Abdominal aorta is normal in course, calibre and opacification. Origin of coeliac artery, superior mesenteric artery , bilateral main renal and lumbar arteries are normal with no hemodynamically significant ostial stenosis noted. Bilateral common, external and internal iliac arteries are normal in course, caliber and opacification. Solid abdominal organs including liver, spleen, pancreas and bilateral kidneys reveal no significant abnormality. Bowel loops are grossly unremarkable. No evidence of ascites. Sliding hiatus hernia seen Diffuse subcutaneous edema/anasarca noted. Colon shows fecal and gaseous distension. IMPRESSION: Sliding hiatus hernia seen-same. Diffuse subcutaneous edema/anasarca noted.-new finding. No obvious aortic dissection or aneurysm. Electronically signed by John Colmenares 10-04-2024 02:15 AM Chest X-Ray 10/03/24 21:58 Exam(s): XR CXR 1 VIEW EXAM: XR Chest, 1 View CLINICAL HISTORY: Reason for exam: vomiting. TECHNIQUE: Frontal view of the chest. COMPARISON: No relevant prior studies available. FINDINGS: Lungs: No airspace consolidation. Pleural space: Unremarkable. No pleural effusion or pneumothorax. Heart: Prior sternotomy. No cardiomegaly. Possible atrial appendage clip. No vascular congestion. Bones/joints: No acute findings. Tubes, lines and devices: Left chest wall AICD-pacemaker. Spinal stimulator leads over the mid thoracic level. IMPRESSION: No acute findings in the chest. Electronically signed by: Greg Carr M.D. 10/04/24 00:[address] 10/03/24 21:58 Exam(s): CT HEAD Without Contrast EXAM: CT Head Without Intravenous Contrast CLINICAL HISTORY: Reason for exam: headache; superatherapeutic INR. TECHNIQUE: Axial computed tomography images of the head/brain without intravenous contrast. CTDI is 37.51 mGy and DLP is 624.41 mGy-cm. Automated exposure control was utilized for the study. A dose lowering technique was utilized adhering to the principles of ALARA. COMPARISON: No relevant prior studies available. FINDINGS: Brain: Age-related parenchymal volume loss. Mild chronic small vessel ischemic change. Encarnacion-white matter differentiation maintained. No hemorrhage, mass effect, parenchymal edema, or midline shift. Ventricles: Unremarkable. No hydrocephalus. Bones/joints: Unremarkable. No acute fracture. Soft tissues: Unremarkable. Vasculature: Intracranial atherosclerosis. Sinuses: Unremarkable as visualized. Mastoid air cells: Unremarkable as visualized. No mastoid effusion. IMPRESSION: No acute intracranial process. Electronically signed by: Greg Carr M.D. 10/04/24 00:13 AM Chest CTA 10/03/24 22:04 EXAM: CT angio chest dissec wo/w con CLINICAL HISTORY: hematemesis, supratherapeutic inr 118 cc''s optiray 320 TECHNIQUE: Contiguous axial images were obtained from the neck base through the upper abdomen following intravenous administration of iodinated contrast material. Angiographic images were processed, 3D MIP images were acquired for interpretation. If IV contrast material had not been administered, the likelihood of detecting abnormalities relevant to the patient's condition would have been substantially decreased. Coronal and sagittal 3-D MIPs were likewise performed and indicated to increase the sensitivity of detectin diffuse clinically relevant pathology. CT scan was performed according to ALARA (as low as reasonable achievable). COMPARISON: 05/07/2023 15:17:11 [facility]. FINDINGS: Multiple patchy ground-glass opacities are noted involving apicoposterior segment of left upper lobe and posterior basal segment of bilateral lower lobes Adequate contrast bolus without evidence of pulmonary embolism. The central airways are patent. The rest of lungs are clear. No pleural effusion. The heart, aorta, and pulmonary arteries are of normal size and configuration. There are no appreciable coronary artery and aortic atherosclerotic calcifications. No pericardial effusion is identified. The thyroid is unremarkable. No mediastinal, hilar, or axillary lymphadenopathy is noted. No suspicious lytic or sclerotic osseous lesions are identified. IMPRESSION: Multiple patchy ground-glass opacities are noted involving apicoposterior segment of left upper lobe and posterior basal segment of bilateral lower lobes- possibility of pneumonitis.-new finding. 1. No evidence of pulmonary embolism No obvious aortic dissection or aneurysm. Electronically signed by John Colmenares 10-04-2024 02:11 AM Pending Results Patient Have Any Pending Studies at Discharge: No Discharge Instructions Given to Patient (Per Discharging Provider) You were hospitalized after having an elevated INR - this is likely because you are taking too much coumadin. We have decreased your dose to 5mg daily. Please check INRs weekly to make sure this is an appropriate dosing. would recommend increase or decreasing by 10-20% of weekly total dose if needing adjustments. Seen by GI - no indication for scope at this time as there was no rebleeding after reversal of coumadin. Concern for underlying chronic liver problems - anasarca and chronically elevated PTT. Chirrosis not seen on imaging. Recommend continued outpatient workup. Total Time Total Time Spent Total Time Spent (In Minutes): Time spent day of discharge 35 minutes including direct patient care, medication reconciliation, documentation, review of labs and images, and coordination of care. Coding Level of Care Code 24188 INP/OBS DISCH >30 MIN Diagnoses Elevated INR R79.1 Anemia D64.9 Hematemesis K92.0"
--- NOTE | 2024-10-05 15:32 | Gastrointestinal Consultation ---
Date of Consultation October 05, 2024 Assessment & Plan (1) Anemia: Patient with supratherapeutic INR as the most likely cause of his bleeding. No overt ongoing GI blood loss during this admission. He has had evaluations for anemia and chest pain in the past by [facility] with most recent EGD in 2021. If not already updated, consider updating colonoscopy as an outpatient. Supervising Physician Co-Signing Physician Notes Reviewed with nurse practitioner agree with above. Patient's history is somewhat not reliable with multiple variations, on our review he had predominantly oropharyngeal blood. No glen coffee-ground emesis. No active bleeding. Comes in with a supratherapeutic INR of above 9. Previous endoscopic evaluations. Benign abdominal examination no plan for endoscopic evaluation unless evidence of recurrent or ongoing gastrointestinal bleeding with correction of super therapeutic INR. History of Present Illness Reason for Consultation: GI bleed? Supratherapeutic INR Attending Physician: Willy Mace MD History of Present Illness Patient is a 58 yo incarcerated male with PMH of SBO, sarcoidosis, asthma, CVA, and chronic anemia who presented to the ED due to bleeding. According to the hospitalist's conversation with RN at [facility], the patient was noted to have eye, mouth, & gums. He mentioned to staff that he had been bleeding for 1 1/2 weeks and noted blood-tinged phlegm when he would cough. There was reportedly an episode of hematochezia on 10/03 at the residential. He takes Coumadin and the dose had been nearly doubled for unclear reasons. INR in the ED was found to be >9.5. Patient has had prior endoscopic evaluation with [facility] in the past. He takes a daily baby Aspirin as well. Allergies Allergy/AdvReac Type Severity Reaction Status Date / Time lisinopril Allergy Severe ANAPHYLAXIS Verified 10/04/24 01:43 ibuprofen Allergy Intermediate HIVES Verified 10/04/24 01:43 morphine Allergy Intermediate HIVES Verified 10/04/24 01:43 capsaicin Allergy Unknown ON SCI Verified 10/04/24 01:43 [facility] MED LIST phenytoin Allergy Unknown ON SCI Verified 10/04/24 01:43 [facility] MED LIST Oc spray contraindication Allergy Unknown CONTRAINDICATED Uncoded 10/04/24 01:43 PER SCI [facility] Home Medications Medication Instructions Recorded Confirmed Type albuterol sulfate 90 mcg/actuation 2 puff inhalation QID PRN 11/22/23 10/04/24 History aerosol inhaler Shortness Of Breath Or Wheezing aspirin 81 mg tablet,delayed 81 mg PO DAILY 11/22/23 10/04/24 History release calcium 600 mg (as 2 tab PO BID 11/22/23 10/04/24 History carbonate)-vitamin D3 10 mcg (400 unit) tablet (Calcium 600 + D(3)) duloxetine 60 mg capsule,delayed 120 mg PO BID 11/22/23 10/04/24 History release insulin glargine 100 unit/mL 10 unit subcut QAM 11/22/23 10/04/24 History subcutaneous solution insulin regular human 100 unit/mL 1 sliding scale dose subcut 11/22/23 10/04/24 History injection solution (Novolin R USEASDIRECTD Regular U-100 Insulin) metoprolol tartrate 25 mg tablet 25 mg PO BID 11/22/23 10/04/24 History pantoprazole 40 mg tablet,delayed 40 mg PO QAM 11/22/23 10/04/24 History release potassium chloride 20 mEq 20 meq PO QAM 11/22/23 10/04/24 History tablet,extended release rosuvastatin 20 mg tablet 20 mg PO QPM 11/22/23 10/04/24 History tamsulosin 0.4 mg capsule 0.4 mg PO HS 11/22/23 10/04/24 History prazosin 2 mg capsule 2 mg PO HS 04/26/24 10/04/24 History aripiprazole 20 mg tablet 20 mg PO HS 10/04/24 10/04/24 History benztropine 2 mg tablet 2 mg PO HS 10/04/24 10/04/24 History ciclesonide 160 mcg/actuation 1 puff inhalation BID 10/04/24 10/04/24 History aerosol inhaler (Alvesco) warfarin 5 mg tablet 5 mg PO WK 10/04/24 10/04/24 History warfarin 7.5 mg tablet 7.5 mg PO 6XWK 10/04/24 10/04/24 History Patient History Medical History Complete heart block Anticoagulated GERD (gastroesophageal reflux disease) Diabetes mellitus Pacemaker Chest pain Transaminitis Pneumothorax Pneumomediastinum Acute myocardial infarction 2020 s/p LAD stent Esophagitis on EGD, [facility], 2020 CAD (coronary artery disease) Constipation Hypomagnesemia Esophagitis Abdominal pain Vertigo BPH (benign prostatic hyperplasia) CAD (coronary artery disease) Syncope Atypical chest pain Hx SBO Angina pectoris Iron deficiency anemia Hypertension Bowel obstruction DM type 2 (diabetes mellitus, type 2) Skin cancer Head injury Depression Peptic ulcer disease Surgical History Tricuspid valve replaced S/P cardiac cath H/O exploratory laparotomy "05/31/2015 with lysis of adhesions, release of bowel obstruction, repair of incisional hernia" H/O ventral hernia repair History of back surgery Family History Mother , age 67 Lung cancer Father , age 68 Lung cancer Brother Stroke age 55 Social History Smoking Status: Former smoker Second Hand Exposure: No; Do You Dip or Chew Tobacco: No; Tobacco Cessation Education Requested by Patient: No Hx Alcohol Use: No Hx Substance Use: No Preferred Language: [place]an Communication Ability: Effective Visual Impairment: No Limitations Tilting Head Band Sawyer Required: No Beliefs That Will Affect Care: None marital status: Single Current Living Situation: Other Current Living Situation Comment: [facility] Other Information That Helps Us Care for You: No Feels Safe at Home: Yes Assistive Devices: None Review of Systems Constitutional: no fever and no chills Respiratory: no cough and no dyspnea Gastrointestinal: + blood in stools; no abdominal pain Psychiatric: no problem reported Physical Exam Constitutional: well developed Respiratory: normal respiratory effort Cardiovascular: Rate/Rhythm: regular rate Gastrointestinal (Abdomen): normal bowel sounds, soft, nontender, no hepatosplenomegaly Psychiatric: Orientation: alert and oriented x 3 Results & Data Vital Signs (Past 12 Hours) Vital Signs Temp Pulse Pulse Resp BP BP Pulse Ox 10/05/24 12:21 70 10 L 100 10/05/24 12:03 72 13 100 10/05/24 12:00 159/104 H 10/05/24 12:00 159/104 H 10/05/24 11:48 69 13 99 10/05/24 11:42 70 19 99 10/05/24 11:30 71 33 H 93 10/05/24 11:21 71 12 96 01/02/25 11:18 70 10 L 97 10/05/24 11:09 70 11 L 96 10/05/24 11:00 125/72 10/05/24 10:57 69 11 L 96 10/05/24 10:51 70 12 96 10/05/24 10:45 69 12 95 10/05/24 10:33 70 14 97 10/05/24 10:27 73 23 98 10/05/24 10:18 74 13 98 10/05/24 10:00 142/88 H 10/05/24 10:00 71 6 L 92 10/05/24 09:42 70 11 L 100 10/05/24 09:39 71 15 100 10/05/24 09:21 73 17 100 10/05/24 09:12 70 21 100 10/05/24 09:06 72 14 95 10/05/24 08:54 71 13 99 10/05/24 08:36 70 16 100 10/05/24 08:24 70 15 99 10/05/24 08:12 70 17 98 10/05/24 08:00 135/90 10/05/24 07:59 70 10/05/24 07:57 70 18 100 10/05/24 07:30 70 8 L 98 10/05/24 07:21 70 6 L 95 10/05/24 07:15 71 19 96 10/05/24 07:00 143/88 H 10/05/24 07:00 143/88 H 10/05/24 06:39 71 11 L 96 10/05/24 06:33 77 11 L 97 10/05/24 06:00 145/87 H 10/05/24 06:00 145/87 H 10/05/24 06:00 70 15 96 10/05/24 05:57 70 10 L 96 10/05/24 05:42 70 13 97 10/05/24 05:36 70 13 97 10/05/24 05:14 70 10/05/24 05:06 36.8 C 70 18 144/94 H 97 10/05/24 05:03 70 24 95 10/05/24 05:00 144/94 H 10/05/24 05:00 144/94 H 10/05/24 05:00 144/94 H 10/05/24 05:00 144/94 H 10/05/24 04:42 71 31 H 100 10/05/24 04:33 71 20 99 O2 Del Method 10/05/24 12:21 10/05/24 12:03 10/05/24 12:00 10/05/24 12:00 10/05/24 11:48 10/05/24 11:42 10/05/24 11:30 10/05/24 11:21 10/05/24 11:18 10/05/24 11:09 10/05/24 11:00 10/05/24 10:57 10/05/24 10:51 10/05/24 10:45 10/05/24 10:33 10/05/24 10:27 10/05/24 10:18 10/05/24 10:00 10/05/24 10:00 10/05/24 09:42 10/05/24 09:39 10/05/24 09:21 10/05/24 09:12 10/05/24 09:06 10/05/24 08:54 10/05/24 08:36 10/05/24 08:24 10/05/24 08:12 10/05/24 08:00 10/05/24 07:59 10/05/24 07:57 10/05/24 07:30 10/05/24 07:21 10/05/24 07:15 10/05/24 07:00 10/05/24 07:00 10/05/24 06:39 10/05/24 06:33 10/05/24 06:00 10/05/24 06:00 10/05/24 06:00 10/05/24 05:57 10/05/24 05:42 10/05/24 05:36 10/05/24 05:14 10/05/24 05:06 Room Air 10/05/24 05:03 10/05/24 05:00 10/05/24 05:00 10/05/24 05:00 10/05/24 05:00 10/05/24 04:42 10/05/24 04:33 PG Care Time/CCT Total # of Minutes Spent Total Time Spent with Patient: Total time spent is greater than 50% in coordination of care (as documented) at patient's floor/unit and/or counseling patient: Coding Level of Care Code 53261 IN/OBS CONSULT LVL 4,60M Diagnoses Anemia D64.9
[2024-10-05 16:25] VITALS: BP 144/94; RESP 12
== END 2024-10-05 16:23 | DRG 813 ==
LOC: ED 21:37 → SUATTDRO 10-04 02:29 → EDINP 10-04 02:29